=== PATIENT | male | born 1955 | race Caucasian/White ===

== ENCOUNTER 2022-12-06 12:53 | Outpatient (OUT) | payer OTHER, MEDICARE, SELFPAY ==
--- NOTE | 2022-12-06 13:00 | CA_ITS ---
Patient: MACKENZIE SKY Exam Date: 12/06/2022 : 1955 Gender:M Ordering : DR TEJAS REEDER M.D. Admission #: [id number] Family : DR ANSARIEL Milena PRO D.O. Order #: [id number] CLICK HERE TO VIEW EXAM ECHOCARDIOGRAM REPORT PROCEDURE: CA ECHO DOPPLER COMPLETE INDICATIONS: Chronic diastolic heart failure, hypertension, diabetes, PTCA COMPARISON: None. DESCRIPTION: COMPLETE ECHOCARDIOGRAM Real-time transthoracic echocardiography with 2D, M-mode, spectral and color flow Doppler performed. QUALITY: Technically difficult due to patients condition. LEFT VENTRICLE: Normal chamber size. Proximal septal hypertrophy (sigmoid septum). Normal systolic function. LV EF: Normal left ventricular ejection fraction, (>55%). DIASTOLIC: Normal diastolic function. ATRIAL SEPTUM: LEFT ATRIUM: Normal chamber size. RIGHT ATRIUM: Normal chamber size. RIGHT VENTRICLE: Normal chamber size. Normal systolic function. TRICUSPID VALVE: Normal mobility and thickness. No stenosis with no regurgitation. MITRAL VALVE: Mildly thickened with normal mobility. No evidence of mitral valve stenosis. There is no mitral annular calcification. No mitral regurgitation. AORTIC VALVE: Normal trileaflet appearance. Thickened aortic valve. Normal leaflet mobility. No evidence of aortic valve stenosis. No aortic regurgitation. AORTIC ROOT: Mildly dilated aortic root measuring 3.9 cm. PULMONIC VALVE: Normal thickness and mobility. No stenosis. No regurgitation. PERICARDIUM: No evidence of pericardial effusion. IVC: Collapses with inspirations. PLEURA: CONCLUSION: 1. Normal ventricular systolic function. LVEF is 55 to 60%. 2. Normal diastolic function. 3. No significant valvular dysfunction. 4. Mildly dilated aortic root measuring 3.9 cm. Adult Echocardiography Procedure Report Left Ventricle LVEDD (3.7 - 5.6 cm): 5.16 cm LVESD (2.2 - 4.0 cm): 3.49 cm LVIVS thickness (0.6 - 1.2 cm): 1.08 cm LVPW thickness (0.5 - 1.0 cm): 1.18 cm e': 0.13 m/s E - e': 6.04 LVOT Max Gradient: 2.44 mm[Hg] LVOT Area (cm2): 0.78 m/s Peak Velocity (LVOT): 0.78 m/s LVOT Diameter 2.33 cm Left Atrium LA Volume Index (2D A2C): 28.70 ml/m2 Left Atrium Systolic Dimension: 4.61 cm Mitral Valve MV E to A Ratio: 1.25 Mitral Valve A-Wave Peak Velocity: 0.62 m/s Mitral Valve E-Wave Peak Velocity: 0.77 m/s Right Ventricle Aorta AO Root Diam: 3.89 cm Aortic Valve AoV Area (Peak Harsh): 3.93 cm2, 3.93 cm2 Peak Velocity(Antegrade Flow): 0.84 m/s Peak Gradient(Antegrade Flow): 2.85 mm[Hg] Tricuspid Valve Pulmonic Valve Peak Velocity: 0.86 m/s Peak Gradient: 2.95 mm[Hg], 3.02 mm[Hg] Right Atrium Right Atrium Systolic Pressure: 46.90 ml, 46.90 ml Dictated by: Tejas Reeder M.D. on 12/11/2022 at 11:08 Approved by: Tejas Reeder M.D. on 12/11/2022 at 11:12
== END 2022-12-06 12:54 ==
LOC: CARD 13:01
PROVIDERS: PCP Family Medicine; Visit Provider Internal Medicine Interventional Cardiology
DX: I50.32 Chronic diastolic (congestive) heart failure (principal)
CPT/HCPCS: 93306

== ENCOUNTER 2023-04-11 09:25 | Outpatient (OUT) | payer MEDICARE, SELFPAY ==
[2023-04-11 10:24] LABS: Creatinine Urine Random 206.86 mg/dL (20.00-300.00); Microalbum Creatinine Ratio Ur 18.3 mg/g (0.0-29.9); Microalbumin Urine Random 3.8 mg/dL (<=30.0)
[2023-04-11 10:46] LABS: Basophils Percent Auto 0.5 % (0.2-2.0); Eosinophils Absolute Auto 0.1 10^3/uL (0.0-0.7); Eosinophils Percent Auto 1.7 % (0.9-7.0); Hematocrit 39.5 % (42.0-54.0); Hemoglobin 13.1 g/dL (14.0-18.0); Immature Granulocytes Abs Auto 0.02 10^3/uL (0.00-0.03); Immature Granulocytes Pct Auto 0.2 % (0.0-0.5); Lymphocytes Absolute Auto 1.9 10^3/uL (1.2-3.8); Lymphocytes Percent Auto 23.1 % (20.5-60.0); Mean Corpuscular HGB Conc 33.2 g/dL (29.9-35.2); Mean Corpuscular Hemoglobin 30.9 pg (25.9-34.0); Mean Corpuscular Volume 93.2 fL (80.0-94.0); Mean Platelet Volume 9.4 fL (9.5-13.5); Monocytes Absolute Auto 0.6 10^3/uL (0.3-0.8); Monocytes Percent Auto 7.3 % (1.7-12.0); Neutrophils Absolute Auto 5.5 10^3/uL (1.4-6.5); Neutrophils Percent Auto 67.2 % (43.0-75.0); Platelet Count 146 10^3/uL (150-450); Red Blood Count 4.24 10^6/uL (4.70-6.10); Red Cell Distribution Width 12.2 % (11.0-15.0); White Blood Count 8.1 10^3/uL (4.0-11.0)
[2023-04-11 10:52] LABS: Alanine Aminotransferase 31 U/L (16-63); Albumin Globulin Ratio 0.9; Albumin Level 3.3 g/dL (3.4-5.0); Alkaline Phosphatase 64 U/L (46-116); Anion Gap 11.1; Aspartate Amino Transferase 18 U/L (15-37); BUN Creatinine Ratio 17.9; Bilirubin Total 0.4 mg/dL (0.2-1.0); Calcium 8.7 mg/dL (8.5-10.1); Carbon Dioxide 33.4 mmol/L (21.0-32.0); Chloride 103 mmol/L (98-107); Chol HDL Ratio 3.4; Cholesterol 118 mg/dL (<=200); Estimated GFR (African America 52 (>=60); Estimated GFR (Non-African Ame 43 (>=60); Globulin 3.7 g/dL; Glucose 161 mg/dL (74-106); HDL Cholesterol 35 mg/dL (40-60); Potassium 4.5 mmol/L (3.5-5.1); Sodium 143 mmol/L (136-145); Triglycerides 164 mg/dL (<=150); Uric Acid 6.9 mg/dL (3.5-7.2); VLDL CHOLESTEROL 32.8 mg/dL
[2023-04-11 11:10] LABS: Prostate Specific Antigen Scrn 0.55 ng/mL (<=4.00)
== END 2023-04-11 09:26 | disposition home or self-care (01) ==
LOC: LAB 09:28
PROVIDERS: PCP Family Medicine; Visit Provider Family Medicine
DX: E11.22 Type 2 diabetes mellitus with diabetic chronic kidney disease (principal); I10 Essential (primary) hypertension; Z12.5 Encounter for screening for malignant neoplasm of prostate; M1A.9XX0 Chronic gout, unspecified, without tophus (tophi)
CPT/HCPCS: 36415; 80053; 80061; 82043; 82570; 84550; 85025; G0103

== ENCOUNTER 2023-09-26 18:38 | Observation (INO) | payer MEDICARE, SELFPAY ==
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
[2023-09-26 18:44] VITALS: BP 150/83; PULSE 73; RESP 18; TEMP 36.4; O2SAT 98; BMI 44.0
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
[2023-09-26] MEDS: ONDANSETRON PF 4 MG/2 ML VIAL IV (19:06)
[2023-09-26] MEDS: HYDROMORPHONE HCL 1 MG/ML CARTRIDGE IVP (19:06)
[2023-09-26 19:31] LABS: Basophils Percent Auto 0.3 % (0.2-2.0); Eosinophils Absolute Auto 0.2 10^3/uL (0.0-0.7); Eosinophils Percent Auto 1.7 % (0.9-7.0); Hematocrit 38.6 % (42.0-54.0); Hemoglobin 12.6 g/dL (14.0-18.0); Immature Granulocytes Abs Auto 0.01 10^3/uL (0.00-0.03); Immature Granulocytes Pct Auto 0.1 % (0.0-0.5); Lymphocytes Absolute Auto 1.7 10^3/uL (1.2-3.8); Lymphocytes Percent Auto 17.4 % (20.5-60.0); Mean Corpuscular HGB Conc 32.6 g/dL (29.9-35.2); Mean Corpuscular Hemoglobin 30.7 pg (25.9-34.0); Mean Corpuscular Volume 93.9 fL (80.0-94.0); Mean Platelet Volume 9.1 fL (9.5-13.5); Monocytes Absolute Auto 0.6 10^3/uL (0.3-0.8); Monocytes Percent Auto 5.9 % (1.7-12.0); Neutrophils Absolute Auto 7.3 10^3/uL (1.4-6.5); Neutrophils Percent Auto 74.6 % (43.0-75.0); Platelet Count 161 10^3/uL (150-450); Red Blood Count 4.11 10^6/uL (4.70-6.10); Red Cell Distribution Width 12.5 % (11.0-15.0); White Blood Count 9.7 10^3/uL (4.0-11.0)
[2023-09-26] MEDS: FENTANYL CITRATE/PF 100 MCG/2 ML VIAL 50 MCG IV (19:41)
[2023-09-26 19:45] LABS: INR 0.93; Prothrombin Time 9.9 sec (9.0-11.6)
[2023-09-26 19:46] LABS: Alanine Aminotransferase 26 U/L (16-63); Albumin Globulin Ratio 0.9; Albumin Level 3.2 g/dL (3.4-5.0); Alkaline Phosphatase 73 U/L (46-116); Anion Gap 8.4; Aspartate Amino Transferase 23 U/L (15-37); Bilirubin Total 0.4 mg/dL (0.2-1.0); Calcium 8.3 mg/dL (8.5-10.1); Carbon Dioxide 32.7 mmol/L (21.0-32.0); Chloride 103 mmol/L (98-107); Estimated GFR (African America 53 (>=60); Estimated GFR (Non-African Ame 43 (>=60); Globulin 3.4 g/dL; Glucose 223 mg/dL (74-106); Potassium 4.1 mmol/L (3.5-5.1); Sodium 140 mmol/L (136-145); Total Protein 6.6 g/dL (6.4-8.2)
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
[2023-09-26] MEDS: ORPHENADRINE 60 MG/ 2 ML VIAL IV (21:20)
[2023-09-26 21:22] LABS: Glucometer 192 mg/dL (74-106)
[2023-09-27] VITALS (11 sets, daily range): BP systolic 109–150; BP diastolic 53–76; PULSE 80–84; RESP 12–20; TEMP 36.6–37.1; O2SAT 92–98; BMI 44.8
[2023-09-27] MEDS: HYDROMORPHONE HCL 1 MG/ML CARTRIDGE IV (00:05)
--- NOTE | 2023-09-27 00:20 | PC.NURSE ---
patient arrived to room 274 at this time. admission assessment completed. patient room orientation completed and call light within reach.
[2023-09-27 01:12] LABS: Glucometer 144 mg/dL (74-106)
--- NOTE | 2023-09-27 01:50 | PC.NURSE ---
patient given [place] as ordered for pain. call light within reach.
[2023-09-27] MEDS: HYDROCODONE/ACET 5-325 MG TABLET 2 TAB PO ×2 (01:55→07:02)
--- NOTE | 2023-09-27 02:00 | PC.NURSE ---
Patient requests using home CPAP machine. Set up at bedside and patient applied to self. RT called and made aware of placement.
--- NOTE | 2023-09-27 02:45 | RESP.RT ---
Pt wearing Home CPAP with 3L 02 bleed in, which patients wears at home.
--- NOTE | 2023-09-27 04:00 | PC.NURSE ---
patient continues to have complaints of pain in right leg. Sheeba MEDEROS notified.
[2023-09-27] MEDS: HYDROMORPHONE HCL 1 MG/ML CARTRIDGE IVP (04:23)
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
[2023-09-27 07:58] LABS: Basophils Percent Auto 0.3 % (0.2-2.0); Eosinophils Absolute Auto 0.1 10^3/uL (0.0-0.7); Eosinophils Percent Auto 0.9 % (0.9-7.0); Hematocrit 35.7 % (42.0-54.0); Hemoglobin 11.5 g/dL (14.0-18.0); Immature Granulocytes Abs Auto 0.03 10^3/uL (0.00-0.03); Immature Granulocytes Pct Auto 0.3 % (0.0-0.5); Mean Corpuscular HGB Conc 32.2 g/dL (29.9-35.2); Mean Corpuscular Hemoglobin 30.6 pg (25.9-34.0); Mean Corpuscular Volume 94.9 fL (80.0-94.0); Mean Platelet Volume 9.1 fL (9.5-13.5); Monocytes Absolute Auto 0.9 10^3/uL (0.3-0.8); Monocytes Percent Auto 8.4 % (1.7-12.0); Neutrophils Absolute Auto 8.1 10^3/uL (1.4-6.5); Neutrophils Percent Auto 72.1 % (43.0-75.0); Platelet Count 136 10^3/uL (150-450); Red Blood Count 3.76 10^6/uL (4.70-6.10); Red Cell Distribution Width 12.8 % (11.0-15.0); White Blood Count 11.2 10^3/uL (4.0-11.0)
[2023-09-27 08:11] LABS: Alanine Aminotransferase 32 U/L (16-63); Albumin Globulin Ratio 0.9; Alkaline Phosphatase 52 U/L (46-116); Anion Gap 11.1; Aspartate Amino Transferase 36 U/L (15-37); BUN Creatinine Ratio 17.3; Bilirubin Total 0.6 mg/dL (0.2-1.0); Calcium 8.2 mg/dL (8.5-10.1); Carbon Dioxide 32.3 mmol/L (21.0-32.0); Chloride 104 mmol/L (98-107); Estimated GFR (African America 52 (>=60); Estimated GFR (Non-African Ame 42 (>=60); Globulin 3.2 g/dL; Glucose 167 mg/dL (74-106); Potassium 4.4 mmol/L (3.5-5.1); Sodium 143 mmol/L (136-145); Total Protein 6.2 g/dL (6.4-8.2)
[2023-09-27] MEDS: AMLODIPINE BESYLATE 5 MG TABLET 10 MG PO (08:28)
[2023-09-27] MEDS: HYDRALAZINE HCL 50 MG TABLET 100 MG PO ×2 (08:28→19:27)
[2023-09-27] MEDS: GABAPENTIN 400 MG CAPSULE 1200 MG PO ×2 (08:28→19:27)
[2023-09-27] MEDS: ALLOPURINOL 100 MG TABLET PO (08:28)
[2023-09-27] MEDS: METOPROLOL TARTRATE 50 MG TABLET PO ×2 (08:28→19:27)
[2023-09-27] MEDS: INSULIN DETEMIR 300 UNIT/3 ML INSULN.PEN 65 UNIT SQ (08:30)
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
--- NOTE | 2023-09-27 10:33 | ECG_ITS ---
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
[2023-09-27] MEDS: MORPHINE SULFATE 2 MG/ML SYRINGE IV ×2 (10:47→12:42)
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
[2023-09-27] MEDS: HYDROCODONE/ACET 5-325 MG TABLET 1 TAB PO (14:09)
[2023-09-27] MEDS: LACTATED RINGER'S SOLUTION 1,000 ML 50 ML IV (15:06)
[2023-09-27] MEDS: HYDROMORPHONE HCL 0.5 MG/0.5 ML SYRINGE IV ×3 (15:47→23:39)
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
[2023-09-27] MEDS: ASPIRIN 325 MG TABLET PO (16:52)
[2023-09-27] MEDS: OXYCODONE HCL/ACETAMINOPHEN 5MG/325MG 2 TAB PO ×2 (16:53→20:55)
[2023-09-27] MEDS: ATORVASTATIN CALCIUM 40 MG TABLET 80 MG PO (19:27)
[2023-09-27] MEDS: CETIRIZINE HCL 10 MG TABLET PO (19:27)
[2023-09-27] MEDS: INSULIN DETEMIR 300 UNIT/3 ML INSULN.PEN 45 UNIT SQ (21:06)
[2023-09-28] VITALS (8 sets, daily range): BP systolic 126–155; BP diastolic 63–74; PULSE 62–78; RESP 14–18; TEMP 36.7–37.2; O2SAT 90–94
[2023-09-28] MEDS: OXYCODONE HCL/ACETAMINOPHEN 5MG/325MG 2 TAB PO ×4 (02:05→21:16)
[2023-09-28] MEDS: CYCLOBENZAPRINE HCL 10 MG TABLET PO ×2 (03:23→20:34)
[2023-09-28] MEDS: HYDROMORPHONE HCL 0.5 MG/0.5 ML SYRINGE IV (04:46)
[2023-09-28 05:23] LABS: Basophils Percent Auto 0.2 % (0.2-2.0); Eosinophils Absolute Auto 0.3 10^3/uL (0.0-0.7); Eosinophils Percent Auto 2.3 % (0.9-7.0); Hematocrit 34.3 % (42.0-54.0); Immature Granulocytes Abs Auto 0.04 10^3/uL (0.00-0.03); Immature Granulocytes Pct Auto 0.3 % (0.0-0.5); Lymphocytes Absolute Auto 2.5 10^3/uL (1.2-3.8); Lymphocytes Percent Auto 20.6 % (20.5-60.0); Mean Corpuscular HGB Conc 32.1 g/dL (29.9-35.2); Mean Corpuscular Hemoglobin 30.5 pg (25.9-34.0); Mean Platelet Volume 9.7 fL (9.5-13.5); Monocytes Absolute Auto 1.1 10^3/uL (0.3-0.8); Monocytes Percent Auto 9.1 % (1.7-12.0); Neutrophils Absolute Auto 8.2 10^3/uL (1.4-6.5); Neutrophils Percent Auto 67.5 % (43.0-75.0); Platelet Count 149 10^3/uL (150-450); Red Blood Count 3.61 10^6/uL (4.70-6.10); Red Cell Distribution Width 12.5 % (11.0-15.0); White Blood Count 12.2 10^3/uL (4.0-11.0)
[2023-09-28 05:49] LABS: Alanine Aminotransferase 25 U/L (16-63); Albumin Globulin Ratio 0.8; Albumin Level 2.7 g/dL (3.4-5.0); Alkaline Phosphatase 54 U/L (46-116); Aspartate Amino Transferase 26 U/L (15-37); BUN Creatinine Ratio 19.5; Bilirubin Total 0.7 mg/dL (0.2-1.0); Calcium 8.1 mg/dL (8.5-10.1); Carbon Dioxide 29.7 mmol/L (21.0-32.0); Chloride 102 mmol/L (98-107); Estimated GFR (African America 47 (>=60); Estimated GFR (Non-African Ame 39 (>=60); Globulin 3.5 g/dL; Glucose 131 mg/dL (74-106); Potassium 3.7 mmol/L (3.5-5.1); Sodium 140 mmol/L (136-145); Total Protein 6.2 g/dL (6.4-8.2)
--- NOTE | 2023-09-28 07:59 | P.PN_ITS ---
Exam Narrative Exam Narrative: General: Patient is alert, and oriented to person, place and time with normal affect, proper hygiene Skin: no visible rashes, or ulcers Head: atraumatic, acephalic Eyes: PERRLA, no nystagmus present, conjunctiva clear, no scleral icterus Ears: normal gross auditory acuity Heart: Normal rate and rhythm, no murmurs/rubs/gallops Lungs: no audible wheezes, crackles and normal breath sounds all lung horton Abdomen: Normal audible bowel sounds, no distension, No palpable masses, no organomegaly, no rebound/guarding/ or rigidity Musculoskeletal: pain with palpation of the right ankle both laterally and medially, pain with palpation of the right tibia, right lateral hip and right groin area Vascular: Normal posterior tibial, and dorsalis pedis pulses Neuro: CN II-X grossly intact Constitutional Vital Signs, click to edit/add: Last Vital Signs Temp 98.9 F 09/28/23 02:07 Pulse 78 09/28/23 02:07 Resp 14 09/28/23 04:03 BP 145/64 H 09/28/23 02:07 Pulse Ox 93 L 09/28/23 05:20 O2 Del Method Home BIPAP / CPAP 09/28/23 05:20 O2 Flow Rate 3 09/28/23 05:20 Progress Note: Objective Labs Labs: Short CBC 09/27/23 09/28/23 Range/Units 07:52 04:03 WBC 11.2 H 12.2 H (4.0-11.0) 10^3/uL Hgb 11.5 L 11.0 L (14.0-18.0) g/dL Hct 35.7 L 34.3 L (42.0-54.0) % Plt Count 136 L 149 L (150-450) 10^3/uL BMP 09/27/23 09/28/23 07:52 04:03 Sodium 143 140 Potassium 4.4 3.7 Chloride 104 102 Carbon Dioxide 32.3 H 29.7 BUN 28.0 H 34.0 H Creatinine 1.62 H 1.74 H Glucose 167 H 131 H Calcium 8.2 L 8.1 L Liver Function 09/27/23 09/28/23 Range/Units 07:52 04:03 Total Bilirubin 0.6 0.7 (0.2-1.0) mg/dL AST 36 26 (15-37) U/L ALT 32 25 (16-63) U/L Alkaline Phosphatase 52 54 (46-116) U/L Albumin 3.0 L 2.7 L (3.4-5.0) g/dL Progress Note: A&P Assessment and Plan (1) Fracture of tibial plateau: Assessment and Plan: continue percocet, continue home Neurontin and IV Dilaudid. MRI of the right hip and pelvis were negative for acute fracture. Orthopedic consultation: For his tibial plateau fracture would recommend a hinged knee brace. If hinged knee brace is not available would place him in the long knee immobilizer. For his distal tibial metaphyseal fracture would put him in a boot. Patient should be nonweightbearing to the right lower extremity. Symptomatic relief with narcotics and icing. Elevation of the leg to control swelling Qualifiers: Encounter type: initial encounter Fracture type: closed Laterality: right Qualified Code(s): S82.141A - Displaced bicondylar fracture of right tibia, initial encounter for closed fracture (2) Neuropathy: Assessment and Plan: continue gabapentin (3) Sleep apnea: Assessment and Plan: continue BiPAP Qualifiers: Sleep apnea type: obstructive Qualified Code(s): G47.33 - Obstructive sleep apnea (adult) (pediatric) (4) Hypertension: Assessment and Plan: continue home medications of metoprolol, restart losartan and Lasix Qualifiers: Hypertension type: secondary to endocrine disorders Qualified Code(s): I15.2 - Hypertension secondary to endocrine disorders (5) Diabetes: Assessment and Plan: continue insulin, sliding scale in addition if needed Qualifiers: Diabetes mellitus complication detail: with neuropathic arthropathy Diabetes mellitus complication status: with diabetic arthropathy Diabetes mellitus keno terminal operator insulin use: with keno terminal operator use Diabetes mellitus type: type 2 Qualified Code(s): E11.610 - Type 2 diabetes mellitus with diabetic neuropathic arthropathy; Z79.4 - correction (current) use of insulin (6) Acute renal failure: Assessment and Plan: restart lasix and losartan, gentle ivf hydration, avoid nephrotoxins such as NSAIDs for now, i suspect chronic kidney disease Qualifiers: Acute renal failure type: unspecified Qualified Code(s): N17.9 - Acute kidney failure, unspecified (7) CAD (coronary artery disease): Assessment and Plan: history of stents 2010 and 2015, follows regularly with cards, continue atorvastatin. Plan patient is a full code started aspirin 325mg yesterday since not surgical once bracing and boot are provided, and patient has crutches to maintain NWBR, will discharge home with close ortho follow up
--- NOTE | 2023-09-28 08:28 | P.ORPN_ITS ---
Progress Note: A&P Assessment and Plan (1) Fracture of tibial plateau: Assessment and Plan: MRI report and images reviewed. Gluteal muscle injury. No fracture. No indication for surgical intervention at this time. Splint for distal tibia fracture and knee immobilizer for tibial plateau fracture. Physical therapy for NWB right lower extremity. Follow up in my office on 10/05. Qualifiers: Encounter type: initial encounter Fracture type: closed Laterality: right Qualified Code(s): S82.141A - Displaced bicondylar fracture of right tibia, initial encounter for closed fracture (2) Neuropathy: (3) Sleep apnea: Qualifiers: Sleep apnea type: obstructive Qualified Code(s): G47.33 - Obstructive sleep apnea (adult) (pediatric) (4) Hypertension: Qualifiers: Hypertension type: secondary to endocrine disorders Qualified Code(s): I15.2 - Hypertension secondary to endocrine disorders (5) Diabetes: Qualifiers: Diabetes mellitus type: type 2 Diabetes mellitus superintendent marine oil terminal insulin use: with prison use Diabetes mellitus complication status: with diabetic arthropathy Diabetes mellitus complication detail: with neuropathic arthropathy Qualified Code(s): E11.610 - Type 2 diabetes mellitus with diabetic neuropathic arthropathy; Z79.4 - halfway (current) use of insulin (6) Acute renal failure: Qualifiers: Acute renal failure type: unspecified Qualified Code(s): N17.9 - Acute kidney failure, unspecified (7) CAD (coronary artery disease): Exam Constitutional Vital Signs, click to edit/add: Last Vital Signs Temp 98.9 F 09/28/23 02:07 Pulse 78 09/28/23 02:07 Resp 14 09/28/23 04:03 BP 145/64 H 09/28/23 02:07 Pulse Ox 93 L 09/28/23 05:20 O2 Del Method Home BIPAP / CPAP 09/28/23 05:20 O2 Flow Rate 3 09/28/23 05:20
[2023-09-28 08:36] LABS: Estimated Average Glucose 157 mg/dL; Glycohemoglobin A1C 7.1 % (4.5-6.2)
[2023-09-28] MEDS: ALLOPURINOL 100 MG TABLET PO (09:30)
[2023-09-28] MEDS: AMLODIPINE BESYLATE 5 MG TABLET 10 MG PO (09:30)
[2023-09-28] MEDS: FUROSEMIDE 40 MG TABLET PO (09:31)
[2023-09-28] MEDS: ASPIRIN 325 MG TABLET PO (09:31)
[2023-09-28] MEDS: GABAPENTIN 400 MG CAPSULE 1200 MG PO ×2 (09:31→21:16)
[2023-09-28] MEDS: INSULIN DETEMIR 300 UNIT/3 ML INSULN.PEN 65 UNIT SQ (09:32)
[2023-09-28] MEDS: HYDROCHLOROTHIAZIDE 25 MG TABLET 12.5 MG PO (09:32)
[2023-09-28] MEDS: HYDRALAZINE HCL 50 MG TABLET 100 MG PO ×2 (09:32→21:16)
[2023-09-28] MEDS: METOPROLOL TARTRATE 50 MG TABLET PO ×2 (09:32→21:16)
[2023-09-28] MEDS: LOSARTAN POTASSIUM 50 MG TABLET PO (09:32)
[2023-09-28 20:48] LABS: Glucometer 264 mg/dL (74-106)
[2023-09-28] MEDS: ATORVASTATIN CALCIUM 40 MG TABLET 80 MG PO (21:16)
[2023-09-28] MEDS: CETIRIZINE HCL 10 MG TABLET PO (21:16)
[2023-09-28] MEDS: INSULIN DETEMIR 300 UNIT/3 ML INSULN.PEN 45 UNIT SQ (21:17)
[2023-09-29] VITALS (10 sets, daily range): BP systolic 126–161; BP diastolic 56–68; PULSE 62–94; RESP 16–18; TEMP 36.7–37.3; O2SAT 90–93
[2023-09-29] MEDS: OXYCODONE HCL/ACETAMINOPHEN 5MG/325MG 1 TAB PO ×2 (01:20→15:49)
[2023-09-29] MEDS: ACETAMINOPHEN 325 MG TABLET 650 MG PO (03:26)
[2023-09-29 05:37] LABS: Basophils Percent Auto 0.2 % (0.2-2.0); Eosinophils Absolute Auto 0.2 10^3/uL (0.0-0.7); Hematocrit 32.8 % (42.0-54.0); Hemoglobin 10.8 g/dL (14.0-18.0); Immature Granulocytes Abs Auto 0.04 10^3/uL (0.00-0.03); Immature Granulocytes Pct Auto 0.3 % (0.0-0.5); Lymphocytes Absolute Auto 2.1 10^3/uL (1.2-3.8); Lymphocytes Percent Auto 18.1 % (20.5-60.0); Mean Corpuscular HGB Conc 32.9 g/dL (29.9-35.2); Mean Corpuscular Hemoglobin 31.1 pg (25.9-34.0); Mean Corpuscular Volume 94.5 fL (80.0-94.0); Mean Platelet Volume 9.5 fL (9.5-13.5); Monocytes Percent Auto 8.6 % (1.7-12.0); Neutrophils Absolute Auto 8.1 10^3/uL (1.4-6.5); Neutrophils Percent Auto 70.8 % (43.0-75.0); Platelet Count 152 10^3/uL (150-450); Red Blood Count 3.47 10^6/uL (4.70-6.10); Red Cell Distribution Width 12.4 % (11.0-15.0); White Blood Count 11.5 10^3/uL (4.0-11.0)
[2023-09-29] MEDS: OXYCODONE HCL/ACETAMINOPHEN 5MG/325MG 2 TAB PO ×2 (05:47→09:50)
[2023-09-29 05:51] LABS: Alanine Aminotransferase 25 U/L (16-63); Albumin Globulin Ratio 0.7; Albumin Level 2.5 g/dL (3.4-5.0); Alkaline Phosphatase 55 U/L (46-116); Anion Gap 12.3; Aspartate Amino Transferase 24 U/L (15-37); BUN Creatinine Ratio 18.2; Bilirubin Total 0.5 mg/dL (0.2-1.0); Calcium 8.1 mg/dL (8.5-10.1); Carbon Dioxide 29.7 mmol/L (21.0-32.0); Chloride 103 mmol/L (98-107); Estimated GFR (African America 41 (>=60); Estimated GFR (Non-African Ame 34 (>=60); Globulin 3.7 g/dL; Glucose 131 mg/dL (74-106); Sodium 141 mmol/L (136-145); Total Protein 6.2 g/dL (6.4-8.2)
[2023-09-29 07:54] LABS: Glucometer 109 mg/dL (74-106)
--- NOTE | 2023-09-29 08:26 | P.DS_ITS ---
DS: Providers Provider Date of admission: 09/27/23 00:17 Primary care physician: DAVID PRO DO Consults: 09/27/23 07:43 Occupational Therapy Eval and Treat Routine Reason for consultation: NWBR Has provider been notified: No 09/28/23 07:00 Consult to Orthopedics Routine Consulting Provider: Julian Oneill Reason for consultation: right tibial plateau fx Has provider been notified: No 09/28/23 07:58 Physical Therapy Eval and Treat Routine Reason for consultation: NWB R lower ext; ortho wants right hinged knee brace and right tall boot Has provider been notified: No DS: Diagnosis Discharge Diagnosis (1) Fracture of tibial plateau: Qualifiers: Encounter type: initial encounter Fracture type: closed Laterality: right Qualified Code(s): S82.141A - Displaced bicondylar fracture of right tibia, initial encounter for closed fracture (2) Neuropathy: (3) Sleep apnea: Qualifiers: Sleep apnea type: obstructive Qualified Code(s): G47.33 - Obstructive sleep apnea (adult) (pediatric) (4) Hypertension: Qualifiers: Hypertension type: secondary to endocrine disorders Qualified Code(s): I15.2 - Hypertension secondary to endocrine disorders (5) Diabetes: Qualifiers: Diabetes mellitus type: type 2 Diabetes mellitus termite treater helper insulin use: with termite treater helper use Diabetes mellitus complication status: with diabetic arthropathy Diabetes mellitus complication detail: with neuropathic arthropathy Qualified Code(s): E11.610 - Type 2 diabetes mellitus with diabetic neuropathic arthropathy; Z79.4 - terminal system operator (current) use of insulin (6) Acute renal failure: Qualifiers: Acute renal failure type: unspecified Qualified Code(s): N17.9 - Acute kidney failure, unspecified (7) CAD (coronary artery disease): DS: Summary Time Spent with Patient Time attestation: Total time spent providing and/or coordinating discharge services: Exam Constitutional Vital Signs, click to edit/add: Last Vital Signs Temp 98.3 F 09/29/23 07:49 Pulse 73 09/29/23 08:00 Resp 18 09/29/23 07:49 BP 148/64 H 09/29/23 07:49 Pulse Ox 93 L 09/29/23 07:49 O2 Del Method Room Air 09/29/23 07:49 O2 Flow Rate 3 09/28/23 05:20 DS: Data Data Completed and Pending Labs on day of discharge: Labs from last 24 hours 09/29/23 09/29/23 09/28/23 07:35 04:50 20:47 WBC 11.5 H RBC 3.47 L Hgb 10.8 L Hct 32.8 L MCV 94.5 H MCH 31.1 MCHC 32.9 RDW 12.4 Plt Count 152 MPV 9.5 Neut % (Auto) 70.8 Lymph % (Auto) 18.1 L [place] % (Auto) 8.6 Eos % (Auto) 2.0 Baso % (Auto) 0.2 Neut # (Auto) 8.1 H Lymph # (Auto) 2.1 [place] # (Auto) 1.0 H Eos # (Auto) 0.2 Baso # (Auto) 0.0 Abs Immat Gran (auto) 0.04 H Imm/Tot Granulo (auto) 0.3 Sodium 141 Potassium 4.0 Chloride 103 Carbon Dioxide 29.7 Anion Gap 12.3 BUN 36.0 H Creatinine 1.98 H Est GFR ( Amer) 41 L Est GFR (Non-Af Amer) 34 L BUN/Creatinine Ratio 18.2 Glucose 131 H Estimat Average Glucose Hemoglobin A1c Calcium 8.1 L Total Bilirubin 0.5 AST 24 ALT 25 Alkaline Phosphatase 55 Total Protein 6.2 L Albumin 2.5 L Globulin 3.7 Albumin/Globulin Ratio 0.7 POC Glucose 109 H 264 H 09/28/23 04:03 WBC RBC Hgb Hct MCV MCH MCHC RDW Plt Count MPV Neut % (Auto) Lymph % (Auto) [place] % (Auto) Eos % (Auto) Baso % (Auto) Neut # (Auto) Lymph # (Auto) [place] # (Auto) Eos # (Auto) Baso # (Auto) Abs Immat Gran (auto) Imm/Tot Granulo (auto) Sodium Potassium Chloride Carbon Dioxide Anion Gap BUN Creatinine Est GFR ( Amer) Est GFR (Non-Af Amer) BUN/Creatinine Ratio Glucose Estimat Average Glucose 157 Hemoglobin A1c 7.1 H Calcium Total Bilirubin AST ALT Alkaline Phosphatase Total Protein Albumin Globulin Albumin/Globulin Ratio POC Glucose Discharge Plan Discharge Condition: Good Discharge Medications: No Action aspirin [Adult Low Dose Aspirin] 81 mg tablet,delayed release (DR/EC) 81 mg PO DAILY gabapentin [Neurontin] 600 mg tablet 1,200 mg PO BID hydralazine 100 mg tablet 100 mg PO BID furosemide [Lasix] 40 mg tablet 40 mg PO DAILY insulin glargine [Lantus Solostar U-100 Insulin] 100 unit/mL (3 mL) insulin pen 65 unit subcut .am amlodipine 10 mg tablet 10 mg PO DAILY atorvastatin 80 mg tablet 80 mg PO QPM cetirizine [Zyrtec] 10 mg tablet 10 mg PO .hs losartan-hydrochlorothiazide 50-12.5 mg tablet 1 tab PO DAILY allopurinol 100 mg tablet 100 mg PO DAILY metoprolol tartrate [Lopressor] 50 mg tablet 50 mg PO BID insulin glargine [Lantus Solostar U-100 Insulin] 100 unit/mL (3 mL) insulin pen 45 unit subcut .hs Print Language: [place]
[2023-09-29] MEDS: ALLOPURINOL 100 MG TABLET PO (09:48)
[2023-09-29] MEDS: AMLODIPINE BESYLATE 5 MG TABLET 10 MG PO (09:48)
[2023-09-29] MEDS: HYDRALAZINE HCL 50 MG TABLET 100 MG PO ×2 (09:49→21:42)
[2023-09-29] MEDS: ASPIRIN 325 MG TABLET PO (09:49)
[2023-09-29] MEDS: FUROSEMIDE 40 MG TABLET PO (09:49)
[2023-09-29] MEDS: HYDROCHLOROTHIAZIDE 25 MG TABLET 12.5 MG PO (09:49)
[2023-09-29] MEDS: GABAPENTIN 400 MG CAPSULE 1200 MG PO ×2 (09:49→21:42)
[2023-09-29] MEDS: METOPROLOL TARTRATE 50 MG TABLET PO ×2 (09:50→21:42)
[2023-09-29] MEDS: LOSARTAN POTASSIUM 50 MG TABLET PO (09:50)
[2023-09-29] MEDS: INSULIN DETEMIR 300 UNIT/3 ML INSULN.PEN 65 UNIT SQ (09:51)
--- NOTE | 2023-09-29 10:05 | PT.DAILY ---
Physical Therapy Daily Note PT Daily Note/Assess Start: 09/29/23 09:58 Freq: Status: Active Protocol: Document 09/29/23 09:58 [email or web address] (Rec: 09/29/23 10:04 [place] [id number]) Physical Therapy Daily Note/Assessment Time In/Time Out Time In 09:28 Time Out 09:40 Pain Out Pain N/A Subjective Subjective Pt supine upon arrival. reports just working with OT but is agreeable to attempt PT at this time. Therapeutic Exercise Time Therapeutic Exercise Minutes (minutes) 3 Therapeutic Exercise Units 0 Therapeutic Exercise Treatment Therapeutic Exercise Treatment Supine AP, GS on R. AP, QS, GS , and heel slides L 10x ea prior to transfer. Therapeutic Activity Time Therapeutic Activity Minutes (minutes) 8 Therapeutic Activity Units 1 Therapeutic Activity Treatment Bed Mobility Ability Maximum Assist Chair Transfer Ability Moderate Assist Therapeutic Activity Comments Supine > sit EOB but requires heavy assistance to advance R LE and upper body to sit EOB. Able to sit EOB unsupported without LOB. Pt sit>Stand from elevated bed ModA. Pt unable to maintain total NWB but more TTWB with heavy UE support needed on RW. Pt static stand 20 sec before needing rest. Pt able to scoot himself up the bed laterally to L with 5 scoots to get where he needs to be. Sit>supine ModA for R LE. Pillow placed under R LE. Call light in reach and needs met. Total Physical Therapy Time Total Therapy Minutes 11 Total Physical Therapy Units 1 Summary Daily Note Summary Improved transfer ability today but cont to have difficulty maintaining NWB R LE with standing.
--- NOTE | 2023-09-29 10:36 | SWNOTE1 ---
MARI met with pt to discuss dc needs. Pt will need rehab and is agreeable to short term rehab stay. SW provided 5 star rating list from medicare.gov. Pt would like [facility] in [place] because he has been there before. MARI advised that SW is not sure they take his insurance, but will check. MARI spoke to Alona in admissions at [facility] and they do take insurance. They have limited beds but will review. Referral sent to [facility]. Referral included face sheet, ED note, H&P, provider notes, case management report, nursing notes, diagnostic imaging, med list, and PT/OT notes.
[2023-09-29 11:25] LABS: Glucometer 121 mg/dL (74-106)
--- NOTE | 2023-09-29 11:38 | CM.NOTE ---
Rounds made with Dr. Hamlin, discussed with pt about skilled therapy at discharge. Pt is in agreement and [facility]. Pt c/o increased pain today.
--- NOTE | 2023-09-29 11:47 | CM.NOTE ---
Medicare Outpatient Observation Notice discussed with pt, pt verbalizes understanding and signs paper. Original given to pt and copy placed on pt's chart.
--- NOTE | 2023-09-29 12:59 | PM.PN ---
Progress Note: Subjective Subjective Interval history: patient not able to get up on his to crutches. Pain is controlled. just reports tired. No other issues or complaints today Exam Narrative Exam Narrative: General: Patient is alert, and oriented to person, place and time with normal affect, proper hygiene Skin: no visible rashes, or ulcers Head: atraumatic, acephalic Eyes: PERRLA, no nystagmus present, conjunctiva clear, no scleral icterus Ears: normal gross auditory acuity Heart: Normal rate and rhythm, no murmurs/rubs/gallops Lungs: no audible wheezes, crackles and normal breath sounds all lung horton Abdomen: Normal audible bowel sounds, no distension, umbilical hernia present since admission, reducible and nontender, no organomegaly, no rebound/guarding/ or rigidity Musculoskeletal: patient in brace and splint Vascular: Normal posterior tibial, and dorsalis pedis pulses Neuro: CN II-X grossly intact Constitutional Vital Signs, click to edit/add: Last Vital Signs Temp 98.4 F 09/29/23 12:28 Pulse 62 09/29/23 12:28 Resp 18 09/29/23 12:28 BP 135/66 09/29/23 12:28 Pulse Ox 92 L 09/29/23 12:28 O2 Del Method Room Air 09/29/23 12:28 O2 Flow Rate 3 09/28/23 05:20 Progress Note: Objective Labs Labs: Short CBC 09/29/23 Range/Units 04:50 WBC 11.5 H (4.0-11.0) 10^3/uL Hgb 10.8 L (14.0-18.0) g/dL Hct 32.8 L (42.0-54.0) % Plt Count 152 (150-450) 10^3/uL BMP 09/29/23 04:50 Sodium 141 Potassium 4.0 Chloride 103 Carbon Dioxide 29.7 BUN 36.0 H Creatinine 1.98 H Glucose 131 H Calcium 8.1 L Liver Function 09/29/23 Range/Units 04:50 Total Bilirubin 0.5 (0.2-1.0) mg/dL AST 24 (15-37) U/L ALT 25 (16-63) U/L Alkaline Phosphatase 55 (46-116) U/L Albumin 2.5 L (3.4-5.0) g/dL Progress Note: A&P Assessment and Plan (1) Fracture of tibial plateau: Assessment and Plan: continue percocet, continue home Neurontin, hinged knee brace Qualifiers: Encounter type: initial encounter Fracture type: closed Laterality: right Qualified Code(s): S82.141A - Displaced bicondylar fracture of right tibia, initial encounter for closed fracture (2) Neuropathy: Assessment and Plan: continue gabapentin (3) Sleep apnea: Assessment and Plan: continue BiPAP Qualifiers: Sleep apnea type: obstructive Qualified Code(s): G47.33 - Obstructive sleep apnea (adult) (pediatric) (4) Hypertension: Assessment and Plan: continue home medications of metoprolol, losartan and Lasix Qualifiers: Hypertension type: secondary to endocrine disorders Qualified Code(s): I15.2 - Hypertension secondary to endocrine disorders (5) Diabetes: Assessment and Plan: continue insulin, sliding scale in addition if needed Qualifiers: Diabetes mellitus complication detail: with neuropathic arthropathy Diabetes mellitus complication status: with diabetic arthropathy Diabetes mellitus manager terminal insulin use: with usp use Diabetes mellitus type: type 2 Qualified Code(s): E11.610 - Type 2 diabetes mellitus with diabetic neuropathic arthropathy; Z79.4 - superintendent container terminal (current) use of insulin (6) Acute renal failure: Assessment and Plan: restart lasix and losartan, avoid nephrotoxins such as NSAIDs for now Qualifiers: Acute renal failure type: unspecified Qualified Code(s): N17.9 - Acute kidney failure, unspecified (7) CAD (coronary artery disease): Assessment and Plan: history of stents 2010 and 2015, follows regularly with cards, continue atorvastatin Plan full code patient remains NWB on the Right; cannot lift self from bed to stand with arms, cannot use crutches or walker, Would benefit from rehab
[2023-09-29 16:24] LABS: Glucometer 130 mg/dL (74-106)
[2023-09-29 20:59] LABS: Glucometer 166 mg/dL (74-106)
[2023-09-29] MEDS: CETIRIZINE HCL 10 MG TABLET PO (21:42)
[2023-09-29] MEDS: ONDANSETRON PF 4 MG/2 ML VIAL IV (21:42)
[2023-09-29] MEDS: ATORVASTATIN CALCIUM 40 MG TABLET 80 MG PO (21:42)
[2023-09-29] MEDS: INSULIN DETEMIR 300 UNIT/3 ML INSULN.PEN 45 UNIT SQ (21:44)
[2023-09-30] VITALS (12 sets, daily range): BP systolic 150–164; BP diastolic 64–81; PULSE 77–113; RESP 16–20; TEMP 36.6–37.2; O2SAT 76–96
[2023-09-30] MEDS: PROCHLORPERAZINE 10 MG/2 ML VIAL IV ×2 (00:32→10:13)
[2023-09-30] MEDS: OXYCODONE HCL/ACETAMINOPHEN 5MG/325MG 1 TAB PO ×2 (01:20→21:41)
[2023-09-30] MEDS: ONDANSETRON PF 4 MG/2 ML VIAL IV (04:00)
--- NOTE | 2023-09-30 04:06 | PC.NURSE ---
pt nauseous and dry heaving. zofran given per order. pt has emesis bag at bedside and call light in reach. pt does not want to take pain meds at this time for fear of throwing up
[2023-09-30 05:23] LABS: Basophils Percent Auto 0.2 % (0.2-2.0); Hematocrit 35.9 % (42.0-54.0); Hemoglobin 11.7 g/dL (14.0-18.0); Immature Granulocytes Abs Auto 0.05 10^3/uL (0.00-0.03); Immature Granulocytes Pct Auto 0.3 % (0.0-0.5); Lymphocytes Absolute Auto 0.8 10^3/uL (1.2-3.8); Lymphocytes Percent Auto 5.8 % (20.5-60.0); Mean Corpuscular HGB Conc 32.6 g/dL (29.9-35.2); Mean Corpuscular Hemoglobin 30.5 pg (25.9-34.0); Mean Corpuscular Volume 93.7 fL (80.0-94.0); Mean Platelet Volume 9.6 fL (9.5-13.5); Monocytes Absolute Auto 0.7 10^3/uL (0.3-0.8); Monocytes Percent Auto 4.6 % (1.7-12.0); Neutrophils Absolute Auto 12.9 10^3/uL (1.4-6.5); Neutrophils Percent Auto 89.1 % (43.0-75.0); Platelet Count 198 10^3/uL (150-450); Red Blood Count 3.83 10^6/uL (4.70-6.10); Red Cell Distribution Width 12.4 % (11.0-15.0); White Blood Count 14.5 10^3/uL (4.0-11.0)
[2023-09-30 06:07] LABS: Alanine Aminotransferase 23 U/L (16-63); Albumin Globulin Ratio 0.7; Albumin Level 2.7 g/dL (3.4-5.0); Alkaline Phosphatase 56 U/L (46-116); Anion Gap 11.6; Aspartate Amino Transferase 22 U/L (15-37); BUN Creatinine Ratio 24.8; Bilirubin Total 0.7 mg/dL (0.2-1.0); Calcium 8.6 mg/dL (8.5-10.1); Carbon Dioxide 32.5 mmol/L (21.0-32.0); Chloride 100 mmol/L (98-107); Estimated GFR (African America 40 (>=60); Estimated GFR (Non-African Ame 33 (>=60); Globulin 4.1 g/dL; Glucose 180 mg/dL (74-106); Potassium 4.1 mmol/L (3.5-5.1); Sodium 140 mmol/L (136-145); Total Protein 6.8 g/dL (6.4-8.2)
--- NOTE | 2023-09-30 06:16 | XR_ITS ---
[address] [address] Patient Name: MACKENZIE SKY MRN: [id number] date: 1955 Sex: M Assigned Patient Location: MS Current Patient Location: MS Accession/Order Number: [id number] Exam Date: 09/30/2023 06:26 Report Date: 09/30/2023 07:00 At the request of: DWAIN FAROOQ Procedure: XR abdomen 1V EXAMINATION: XR abdomen 1V HISTORY: nausea and vomiting COMPARISON: No relevant comparison available. FINDINGS: BOWEL GAS PATTERN: Moderate gaseous distention of the stomach. Mild gaseous distention of small bowel loops with air seen down to the sigmoid colon. Normal amount of stool. CALCIFICATIONS: None significant. OTHER: Degenerative changes of the spine and hips XR/XR abdomen 1V IMPRESSION: Gaseous distention of the stomach Overall nonobstructive bowel gas pattern Electronically authenticated by: JULIANN MOTLEY Date: 09/30/2023 07:00
--- NOTE | 2023-09-30 06:58 | PC.NURSE ---
pt nauseous and vomiting throughout the night. Zofran did not seem to be effective. Compazine was given and gave patient little relief. Pt is still nauseousand dry heaving this morning. No BM is documented for this patient since admission. Dr. Hamlin made aware and abdominal XR ordered and obtained.
--- NOTE | 2023-09-30 08:32 | PM.PN ---
Progress Note: Subjective Subjective Interval history: Patient developed nausea and vomiting this morning. No bowel movement, some abdominal discomfort. Stat X-ray of the abdomen was negative for obstruction. Given antiemetics, started Miralax and docusate scheduled. Viral panel negative. Exam Narrative Exam Narrative: General: Patient is alert, and oriented to person, place and time with normal affect, proper hygiene Skin: no visible rashes, or ulcers Head: atraumatic, acephalic Eyes: PERRLA, no nystagmus present, conjunctiva clear, no scleral icterus Ears: normal gross auditory acuity Heart: Normal rate and rhythm, no murmurs/rubs/gallops Lungs: no audible wheezes, crackles and normal breath sounds all lung horton Abdomen: dimnished but audible bowel sounds, no distension, umbilical hernia still reducible and nontender, no organomegaly, no rebound/guarding/ or rigidity Musculoskeletal: patient in brace and splint Vascular: Normal posterior tibial, and dorsalis pedis pulses Neuro: CN II-X grossly intact Constitutional Vital Signs, click to edit/add: Last Vital Signs Temp 98.7 F 09/30/23 04:00 Pulse 113 H 09/30/23 04:00 Resp 18 09/30/23 04:00 BP 150/71 H 09/30/23 04:00 Pulse Ox 91 L 09/30/23 04:00 O2 Del Method Room Air 09/30/23 04:00 O2 Flow Rate 3 09/28/23 05:20 Progress Note: Objective Labs Labs: Short CBC 09/30/23 Range/Units 04:41 WBC 14.5 H (4.0-11.0) 10^3/uL Hgb 11.7 L (14.0-18.0) g/dL Hct 35.9 L (42.0-54.0) % Plt Count 198 (150-450) 10^3/uL BMP 09/30/23 04:41 Sodium 140 Potassium 4.1 Chloride 100 Carbon Dioxide 32.5 H BUN 50.0 H Creatinine 2.02 H Glucose 180 H Calcium 8.6 Liver Function 09/30/23 Range/Units 04:41 Total Bilirubin 0.7 (0.2-1.0) mg/dL AST 22 (15-37) U/L ALT 23 (16-63) U/L Alkaline Phosphatase 56 (46-116) U/L Albumin 2.7 L (3.4-5.0) g/dL Progress Note: A&P Assessment and Plan (1) Fracture of tibial plateau: Assessment and Plan: continue percocet, continue home Neurontin, hinged knee brace, NWB RLE; awaiting placement for rehab Qualifiers: Encounter type: initial encounter Fracture type: closed Laterality: right Qualified Code(s): S82.141A - Displaced bicondylar fracture of right tibia, initial encounter for closed fracture (2) Neuropathy: Assessment and Plan: continue gabapentin (3) Sleep apnea: Assessment and Plan: continue BiPAP Qualifiers: Sleep apnea type: obstructive Qualified Code(s): G47.33 - Obstructive sleep apnea (adult) (pediatric) (4) Hypertension: Assessment and Plan: continue home medications of metoprolol, losartan and Lasix Qualifiers: Hypertension type: secondary to endocrine disorders Qualified Code(s): I15.2 - Hypertension secondary to endocrine disorders (5) Diabetes: Assessment and Plan: continue insulin, sliding scale in addition if needed Qualifiers: Diabetes mellitus complication detail: with neuropathic arthropathy Diabetes mellitus complication status: with diabetic arthropathy 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 elevated more today, stop lasix, hctz and losartan, start IVF hydration Qualifiers: Acute renal failure type: unspecified Qualified Code(s): N17.9 - Acute kidney failure, unspecified (7) CAD (coronary artery disease): Assessment and Plan: history of stents 2010 and 2015, follows regularly with cards, continue atorvastatin Qualifiers: Coronary Disease-Associated Artery/Lesion type: [place] artery [place] vs. transplanted heart: [place]uni heart Associated angina: without angina Qualified Code(s): I25.10 - Atherosclerotic heart disease of [place] coronary artery without angina pectoris (8) Nausea & vomiting: Assessment and Plan: start Miralax, and docusate Qualifiers: Vomiting type: unspecified Qualified Code(s): R11.2 - Nausea with vomiting, unspecified Plan full code patient remains NWB on the Right LE
--- NOTE | 2023-09-30 09:57 | SWNOTE1 ---
MARI received call from Alona at [facility] and she will let MARI know within half hour if they can accept.
[2023-09-30 09:58] LABS: Adenovirus NOT DETECTED (NOT DETECTE); Bordetella parapertussis NOT DETECTED (NOT DETECTE); Coronavirus 229E NOT DETECTED (NOT DETECTE); Coronavirus HKU1 NOT DETECTED (NOT DETECTE); Coronavirus NL63 NOT DETECTED (NOT DETECTE); Coronavirus OC43 NOT DETECTED (NOT DETECTE); Human Metapneumovirus NOT DETECTED (NOT DETECTE); Human Rhinovirus/Enterovirus NOT DETECTED (NOT DETECTE); Influenza A NOT DETECTED (NOT DETECTE); Influenza B NOT DETECTED (NOT DETECTE); Mycoplasma pneumoniae NOT DETECTED (NOT DETECTE); Parainfluenza Virus 1 NOT DETECTED (NOT DETECTE); Parainfluenza Virus 2 NOT DETECTED (NOT DETECTE); Parainfluenza Virus 3 NOT DETECTED (NOT DETECTE); Parainfluenza Virus 4 NOT DETECTED (NOT DETECTE); Respiratory Syncytial Virus NOT DETECTED (NOT DETECTE); SARS-CoV-2 NOT DETECTED (NOT DETECTE)
--- NOTE | 2023-09-30 10:07 | PT.DAILY ---
Physical Therapy Daily Note PT Daily Note/Assess Start: 09/29/23 09:58 Freq: Status: Active Protocol: Document 09/30/23 09:30 REECE (Rec: 09/30/23 10:06 REECE [id number]) Physical Therapy Daily Note/Assessment Time In/Time Out Time In 09:30 Time Out 09:45 Pain In Pain Level 7 Pain Out Pain Level 8 Subjective Subjective Patient reports very high pain levels this AM, did not sleep well last night, very nauseated this morning. Also complaints of being constipated and uncomfortable. Does agree to attempt therapy this morning. Therapeutic Exercise Time Therapeutic Exercise Minutes (minutes) 10 Therapeutic Exercise Units 1 Therapeutic Exercise Treatment Therapeutic Exercise Treatment Began with supine exercises as able with AROM and isometrics on L LE, attempted isometrics on R LE but due to high pain levels does not complete them. Patient them becomes very nauseated and upset, and asks for nurse. Total Physical Therapy Time Total Therapy Minutes 10 Total Physical Therapy Units 1 Summary Daily Note Summary Patient demonstrates decreased ability to patriciate this AM due to severe pain and nausea . Patient did try to complete supine exercise program for L LE strengthening, but then had to stop due to reasons noted. Patient asks for nurse, so this magazine writer informed nurse how RX went and that patient was asking for her. Will re- attempt PT later today if able to work on bed mobility and transfers.
[2023-09-30] MEDS: HYDRALAZINE HCL 50 MG TABLET 100 MG PO ×2 (10:13→21:42)
[2023-09-30] MEDS: METOPROLOL TARTRATE 50 MG TABLET PO ×2 (10:13→21:42)
[2023-09-30] MEDS: AMLODIPINE BESYLATE 5 MG TABLET 10 MG PO (10:13)
[2023-09-30] MEDS: GABAPENTIN 400 MG CAPSULE 1200 MG PO ×2 (10:13→21:41)
[2023-09-30] MEDS: OXYCODONE HCL/ACETAMINOPHEN 5MG/325MG 2 TAB PO ×2 (10:13→16:23)
[2023-09-30] MEDS: ASPIRIN 325 MG TABLET PO (10:14)
[2023-09-30] MEDS: ALLOPURINOL 100 MG TABLET PO (10:14)
[2023-09-30] MEDS: CYCLOBENZAPRINE HCL 10 MG TABLET PO ×2 (10:14→21:42)
[2023-09-30] MEDS: LACTATED RINGER'S SOLUTION 1,000 ML 100 ML IV ×2 (10:20→21:42)
[2023-09-30] MEDS: INSULIN DETEMIR 300 UNIT/3 ML INSULN.PEN 65 UNIT SQ (10:20)
--- NOTE | 2023-09-30 10:31 | SWNOTE1 ---
MARI reached out to Alona again at [facility]. She voiced she has not heard back yet about a physical therapist and advised MARI to move on to another facility. MARI spoke to pt and updated him. He is agreeable to move on to another facility. He would like [facility]. Referral sent to [facility]. Referral included face sheet, ED note, H&P, provider notes, case management report, nursing notes, diagnostic imaging, med list, and PT/OT notes.
[2023-09-30 11:03] LABS: Glucometer 240 mg/dL (74-106)
--- NOTE | 2023-09-30 11:40 | CM.NOTE ---
Rounds made with Dr. Hamlin, no discharge today. Pt c/o no bowel movement in serveral days, Dr. Hamlin will put in orders.
[2023-09-30] MEDS: DOCUSATE SODIUM 100 MG CAPSULE 200 MG PO ×2 (12:00→21:41)
[2023-09-30] MEDS: POLYETHYLENE GLYCOL 3350 17 GM POWDER PACKET PO (12:00)
--- NOTE | 2023-09-30 12:40 | SWNOTE1 ---
[facility] is able to accept and have started precert. SW updated nursing and pt.
[2023-09-30 16:04] LABS: Glucometer 186 mg/dL (74-106)
[2023-09-30 20:18] LABS: Glucometer 160 mg/dL (74-106)
[2023-09-30] MEDS: ATORVASTATIN CALCIUM 40 MG TABLET 80 MG PO (21:41)
[2023-09-30] MEDS: CETIRIZINE HCL 10 MG TABLET PO (21:41)
[2023-09-30] MEDS: INSULIN DETEMIR 300 UNIT/3 ML INSULN.PEN 45 UNIT SQ (21:42)
[2023-10-01] MEDS: CALCIUM CARBONATE 500 MG (200MG ELEMENTAL) TAB CHEW PO ×2 (01:27→08:42)
[2023-10-01] MEDS: OXYCODONE HCL/ACETAMINOPHEN 5MG/325MG 2 TAB PO (03:40)
[2023-10-01 03:45] VITALS: BP 156/73; PULSE 100; RESP 18; TEMP 37.1; O2SAT 90
[2023-10-01 05:10] VITALS: O2SAT 90
[2023-10-01 05:49] LABS: Basophils Percent Auto 0.2 % (0.2-2.0); Eosinophils Absolute Auto 0.1 10^3/uL (0.0-0.7); Eosinophils Percent Auto 0.5 % (0.9-7.0); Hemoglobin 10.9 g/dL (14.0-18.0); Immature Granulocytes Abs Auto 0.06 10^3/uL (0.00-0.03); Immature Granulocytes Pct Auto 0.5 % (0.0-0.5); Lymphocytes Absolute Auto 1.3 10^3/uL (1.2-3.8); Lymphocytes Percent Auto 9.5 % (20.5-60.0); Mean Corpuscular HGB Conc 32.1 g/dL (29.9-35.2); Mean Corpuscular Hemoglobin 30.4 pg (25.9-34.0); Mean Corpuscular Volume 94.7 fL (80.0-94.0); Mean Platelet Volume 9.2 fL (9.5-13.5); Monocytes Percent Auto 7.3 % (1.7-12.0); Neutrophils Absolute Auto 10.9 10^3/uL (1.4-6.5); Platelet Count 200 10^3/uL (150-450); Red Blood Count 3.59 10^6/uL (4.70-6.10); Red Cell Distribution Width 12.2 % (11.0-15.0); White Blood Count 13.3 10^3/uL (4.0-11.0)
[2023-10-01 06:22] LABS: Alanine Aminotransferase 22 U/L (16-63); Albumin Globulin Ratio 0.6; Albumin Level 2.5 g/dL (3.4-5.0); Alkaline Phosphatase 52 U/L (46-116); Anion Gap 9.2; Aspartate Amino Transferase 19 U/L (15-37); BUN Creatinine Ratio 31.5; Bilirubin Total 0.6 mg/dL (0.2-1.0); Calcium 8.3 mg/dL (8.5-10.1); Carbon Dioxide 32.9 mmol/L (21.0-32.0); Chloride 102 mmol/L (98-107); Estimated GFR (African America 46 (>=60); Estimated GFR (Non-African Ame 38 (>=60); Globulin 3.9 g/dL; Glucose 105 mg/dL (74-106); Potassium 4.1 mmol/L (3.5-5.1); Sodium 140 mmol/L (136-145); Total Protein 6.4 g/dL (6.4-8.2)
[2023-10-01 08:20] VITALS: BP 155/69; PULSE 96; RESP 20; TEMP 37.7; O2SAT 92
--- NOTE | 2023-10-01 08:21 | PM.PN ---
Progress Note: Subjective Subjective Interval history: Patient developed nausea and vomiting this morning. No bowel movement, some abdominal discomfort. Stat X-ray of the abdomen was negative for obstruction. Given antiemetics, started Miralax and docusate scheduled. Viral panel negative. Exam Constitutional Vital Signs, click to edit/add: Last Vital Signs Temp 98.7 F 10/01/23 03:45 Pulse 100 H 10/01/23 03:45 Resp 18 10/01/23 03:45 BP 156/73 H 10/01/23 03:45 Pulse Ox 90 L 10/01/23 05:10 O2 Del Method Home BIPAP / CPAP 10/01/23 05:10 O2 Flow Rate 4 10/01/23 05:10 Progress Note: Objective Labs Labs: Short CBC 10/01/23 Range/Units 04:58 WBC 13.3 H (4.0-11.0) 10^3/uL Hgb 10.9 L (14.0-18.0) g/dL Hct 34.0 L (42.0-54.0) % Plt Count 200 (150-450) 10^3/uL BMP 10/01/23 04:58 Sodium 140 Potassium 4.1 Chloride 102 Carbon Dioxide 32.9 H BUN 56.0 H Creatinine 1.78 H Glucose 105 Calcium 8.3 L Liver Function 10/01/23 Range/Units 04:58 Total Bilirubin 0.6 (0.2-1.0) mg/dL AST 19 (15-37) U/L ALT 22 (16-63) U/L Alkaline Phosphatase 52 (46-116) U/L Albumin 2.5 L (3.4-5.0) g/dL Progress Note: A&P Assessment and Plan (1) Fracture of tibial plateau: Qualifiers: Encounter type: initial encounter Fracture type: closed Laterality: right Qualified Code(s): S82.141A - Displaced bicondylar fracture of right tibia, initial encounter for closed fracture (2) Neuropathy: (3) Sleep apnea: Qualifiers: Sleep apnea type: obstructive Qualified Code(s): G47.33 - Obstructive sleep apnea (adult) (pediatric) (4) Hypertension: Qualifiers: Hypertension type: secondary to endocrine disorders Qualified Code(s): I15.2 - Hypertension secondary to endocrine disorders (5) Diabetes: Qualifiers: Diabetes mellitus type: type 2 Diabetes mellitus medical terminologist insulin use: with mcfp use Diabetes mellitus complication status: with diabetic arthropathy Diabetes mellitus complication detail: with neuropathic arthropathy Qualified Code(s): E11.610 - Type 2 diabetes mellitus with diabetic neuropathic arthropathy; Z79.4 - FPC (current) use of insulin (6) Acute renal failure: Qualifiers: Acute renal failure type: unspecified Qualified Code(s): N17.9 - Acute kidney failure, unspecified (7) CAD (coronary artery disease): Qualifiers: Coronary Disease-Associated Artery/Lesion type: [place] artery [place] vs. transplanted heart: [place] heart Associated angina: without angina Qualified Code(s): I25.10 - Atherosclerotic heart disease of [place] coronary artery without angina pectoris (8) Nausea & vomiting: Qualifiers: Vomiting type: unspecified Qualified Code(s): R11.2 - Nausea with vomiting, unspecified
[2023-10-01] MEDS: METOPROLOL TARTRATE 50 MG TABLET PO (08:35)
[2023-10-01] MEDS: DOCUSATE SODIUM 100 MG CAPSULE 200 MG PO (08:35)
[2023-10-01] MEDS: GABAPENTIN 400 MG CAPSULE 1200 MG PO (08:35)
[2023-10-01] MEDS: HYDRALAZINE HCL 50 MG TABLET 100 MG PO (08:36)
[2023-10-01] MEDS: FAMOTIDINE 20 MG TABLET PO (08:36)
[2023-10-01] MEDS: OXYCODONE HCL/ACETAMINOPHEN 5MG/325MG 1 TAB PO ×2 (08:36→12:53)
[2023-10-01] MEDS: ASPIRIN 325 MG TABLET PO (08:36)
[2023-10-01] MEDS: AMLODIPINE BESYLATE 5 MG TABLET 10 MG PO (08:36)
[2023-10-01] MEDS: ALLOPURINOL 100 MG TABLET PO (08:36)
--- NOTE | 2023-10-01 09:21 | SWNOTE1 ---
SW received message from [facility] and pt is approved to go. MARI updated case assembler who is with doctor.
[2023-10-01 09:33] VITALS: O2SAT 92
[2023-10-01] MEDS: POLYETHYLENE GLYCOL 3350 17 GM POWDER PACKET PO (09:45)
[2023-10-01 09:46] VITALS: TEMP 37.2
--- NOTE | 2023-10-01 10:12 | PT.DAILY ---
Physical Therapy Daily Note PT Daily Note/Assess Start: 09/29/23 09:58 Freq: Status: Active Protocol: Document 10/01/23 10:02 LONDON (Rec: 10/01/23 10:12 LONDON [id number]) Physical Therapy Daily Note/Assessment Time In/Time Out Time In 09:05 Time Out 09:40 Pain In Pain N/A Pain Out Pain N/A Subjective Subjective Pt supine upon arrival. Agrees to PT. Cont to have upset stomach, no emesis this morning. Therapeutic Activity Time Therapeutic Activity Minutes (minutes) 25 Therapeutic Activity Treatment Bed Mobility Ability Maximum Assist Chair Transfer Ability Maximum Assist,2 Person Assist Therapeutic Activity Comments Pt performs supine>sit transfer with MaxA needed for R LE and to advance upper body to sit at EOB. Pt sits EOB to get washed up 10 min total unsupported. Pt is able to doff gown but needs set up to wash front of upper body, needs full assistance to wash his back and apply lotion. Pt able to apply deodorant and arvin new gown. Pt needs to use commode. Stand pivot from elevated bed to BS commode MaxA. Pt unable to fully maintain NWB R LE. Pt sits on commode with no luck having bowel movement. Pt wishes to return to bed. Stand pivot back to bed with MaxA+2 this attempt- still unable to fully maintain NWB R LE. Pt returned supine with MaxA for lower body then total assist to scoot him up in bed. Pillows placed under R LE, head elevated and call light is within reach. Total Physical Therapy Time Total Therapy Minutes 25 Summary Daily Note Summary Poor tolerance to activity. Very easily fatigued and increased pain. Pt is unable to maintain NWB through R LE even with MaxA+2. Pt will benefit from SNF to regain strength and endurance.
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
--- NOTE | 2023-10-01 10:30 | CM.NOTE ---
Rounds made with Dr. Hamlin, pt will discharge to [facility] today for skilled therapy.
[2023-10-01 11:31] LABS: Glucometer 162 mg/dL (74-106)
--- NOTE | 2023-10-01 11:44 | PC.NURSE ---
Report called to Penny at [facility].
--- NOTE | 2023-10-01 11:55 | SWNOTE1 ---
MARI sent dc med rec and dc summary to [facility]. MARI completed HENS. MARI called and set up [facility] and they will be here around 2:30pm. MARI updated nursing, pt/pt's , and [facility] of time. Pt is going skilled.
== END 2023-10-01 15:26 ==
LOC: ER 23:52 → ICU 09-27 00:23 → MS 09-28 17:52
PROVIDERS: Physician Assistant; Admitting Provider Family Medicine; Emergency Provider Emergency Medicine; PCP Family Medicine; Visit Provider Family Medicine
DX: S82.144A Nondisplaced bicondylar fracture of right tibia, initial encounter for closed fracture (principal); E11.42 Type 2 diabetes mellitus with diabetic polyneuropathy; G47.33 Obstructive sleep apnea (adult) (pediatric); I15.2 Hypertension secondary to endocrine disorders; E11.610 Type 2 diabetes mellitus with diabetic neuropathic arthropathy; N17.9 Acute kidney failure, unspecified; I25.10 Atherosclerotic heart disease of native coronary artery without angina pectoris; Z95.5 Presence of coronary angioplasty implant and graft; R11.2 Nausea with vomiting, unspecified; E11.22 Type 2 diabetes mellitus with diabetic chronic kidney disease; N18.9 Chronic kidney disease, unspecified; K42.9 Umbilical hernia without obstruction or gangrene; I87.2 Venous insufficiency (chronic) (peripheral); Z79.899 Other long term (current) drug therapy; V86.55XA Driver of 3- or 4- wheeled all-terrain vehicle (ATV) injured in nontraffic accident, initial encounter; Z79.82 Long term (current) use of aspirin; Z79.4 Long term (current) use of insulin; Z20.822 Contact with and (suspected) exposure to COVID-19; Z96.652 Presence of left artificial knee joint
CPT/HCPCS: 0202U; 36415; 70450; 72125; 72170; 72192; 73552; 73564; 73590; 73610; 73630; 73700; 73721; 74018; 80053; 82948; 83036; 85025; 85610; 93005; 94761; 96374; 96375; 96376; 97110; 97162; 97165; 97530; 99285; G0378; J1170

== ENCOUNTER 2023-10-06 01:12 | Outpatient (REF) | payer MEDICARE, SELFPAY ==
[2023-10-06 07:51] LABS: Basophils Percent Auto 0.3 % (0.2-2.0); Eosinophils Absolute Auto 0.4 10^3/uL (0.0-0.7); Eosinophils Percent Auto 3.4 % (0.9-7.0); Hemoglobin 10.7 g/dL (14.0-18.0); Immature Granulocytes Abs Auto 0.03 10^3/uL (0.00-0.03); Immature Granulocytes Pct Auto 0.2 % (0.0-0.5); Lymphocytes Absolute Auto 2.1 10^3/uL (1.2-3.8); Lymphocytes Percent Auto 16.1 % (20.5-60.0); Mean Corpuscular HGB Conc 31.5 g/dL (29.9-35.2); Mean Corpuscular Volume 95.2 fL (80.0-94.0); Monocytes Absolute Auto 0.8 10^3/uL (0.3-0.8); Monocytes Percent Auto 6.6 % (1.7-12.0); Neutrophils Absolute Auto 9.4 10^3/uL (1.4-6.5); Neutrophils Percent Auto 73.4 % (43.0-75.0); Platelet Count 274 10^3/uL (150-450); Red Blood Count 3.57 10^6/uL (4.70-6.10); Red Cell Distribution Width 12.1 % (11.0-15.0); White Blood Count 12.8 10^3/uL (4.0-11.0)
[2023-10-06 08:29] LABS: Anion Gap 11.9; BUN Creatinine Ratio 16.1; Calcium 8.6 mg/dL (8.5-10.1); Carbon Dioxide 29.8 mmol/L (21.0-32.0); Chloride 105 mmol/L (98-107); Estimated GFR (African America 59 (>=60); Estimated GFR (Non-African Ame 49 (>=60); Glucose 103 mg/dL (74-106); Potassium 4.7 mmol/L (3.5-5.1); Sodium 142 mmol/L (136-145)
== END 2023-10-06 01:13 | disposition home or self-care (01) ==
LOC: LAB 01:12
PROVIDERS: PCP Family Medicine; Visit Provider Nurse Practitioner Family
DX: M79.661 Pain in right lower leg (principal); S82.144A Nondisplaced bicondylar fracture of right tibia, initial encounter for closed fracture; R11.2 Nausea with vomiting, unspecified
CPT/HCPCS: 36415; 73590; 80048; 85025

== ENCOUNTER 2023-10-06 08:54 | Outpatient (OUT) | payer MEDICARE, SELFPAY ==
--- NOTE | 2023-10-06 | XR_ITS ---
[address] [address] Patient Name: MACKENZIE SKY MRN: [id number] date: 1955 Sex: M Assigned Patient Location: Current Patient Location: Accession/Order Number: [id number] Exam Date: 10/06/2023 09:00 Report Date: 10/07/2023 06:44 At the request of: DOMINGO BOSS Procedure: XR tibia fibula RT 2V PROCEDURE: XR tibia fibula RT 2V HISTORY: RIGHT LOWER LEG PAIN ; right tibia-fibula pain; recent tibial plateau fracture COMPARISON: XR tibia fibula right 09/26/2023, CT right knee 09/26/2023 FINDINGS: BONES:Stable nondisplaced fracture involving the intercondylar spines and lateral tibial plateau. Chronic degenerative changes of the knee joint and ankle. SOFT TISSUES:No visible soft tissue swelling. EFFUSION:None visible. OTHER: Negative. XR/XR tibia fibula RT 2V IMPRESSION: 1. Stable nondisplaced tibial plateau fracture. 2. Chronic degenerative changes. Electronically authenticated by: DOMINGO LADD Date: 10/07/2023 06:44
== END 2023-10-06 08:55 | disposition home or self-care (01) ==
LOC: EC 08:54
PROVIDERS: PCP Family Medicine; Visit Provider Orthopaedic Surgery
DX: M79.661 Pain in right lower leg (principal); S82.144A Nondisplaced bicondylar fracture of right tibia, initial encounter for closed fracture
CPT/HCPCS: 73590

== ENCOUNTER 2023-10-07 15:30 | Outpatient (REF) | payer MEDICARE, SELFPAY ==
[2023-10-08 08:10] LABS: Bilirubin Urine NEGATIVE (NEGATIVE); Blood Urine NEGATIVE (NEGATIVE); Clarity Urine CLEAR (CLEAR); Color Urine YELLOW (YELLOW); Glucose Urine UA NEGATIVE (NEGATIVE); Ketones Urine NEGATIVE (NEGATIVE); Leukocyte Esterase Urine NEGATIVE (NEGATIVE); Nitrite Urine NEGATIVE (NEGATIVE); Protein Urine NEGATIVE (NEG/TRACE); Specific Gravity Urine 1.025 (1.005-1.025); Urobilinogen Urine 0.2 EU/dL (0.2-1.0); pH Urine 5.5 (5.0-9.0)
[2023-10-08 08:12] LABS: Urine Microscopic Indicated NO
== END 2023-10-07 15:31 | disposition home or self-care (01) ==
LOC: LAB 15:30
PROVIDERS: PCP Family Medicine; Visit Provider Nurse Practitioner Family
DX: R11.2 Nausea with vomiting, unspecified (principal)
CPT/HCPCS: 81003

== ENCOUNTER 2023-10-10 02:17 | Outpatient (REF) | payer MEDICARE, SELFPAY ==
[2023-10-10 08:09] LABS: Basophils Percent Auto 0.4 % (0.2-2.0); Eosinophils Absolute Auto 0.3 10^3/uL (0.0-0.7); Eosinophils Percent Auto 3.3 % (0.9-7.0); Hematocrit 34.1 % (42.0-54.0); Hemoglobin 10.9 g/dL (14.0-18.0); Immature Granulocytes Abs Auto 0.05 10^3/uL (0.00-0.03); Immature Granulocytes Pct Auto 0.5 % (0.0-0.5); Lymphocytes Absolute Auto 2.2 10^3/uL (1.2-3.8); Lymphocytes Percent Auto 21.1 % (20.5-60.0); Mean Corpuscular Hemoglobin 29.9 pg (25.9-34.0); Mean Corpuscular Volume 93.7 fL (80.0-94.0); Monocytes Absolute Auto 0.8 10^3/uL (0.3-0.8); Monocytes Percent Auto 7.3 % (1.7-12.0); Neutrophils Percent Auto 67.4 % (43.0-75.0); Platelet Count 305 10^3/uL (150-450); Red Blood Count 3.64 10^6/uL (4.70-6.10); Red Cell Distribution Width 12.3 % (11.0-15.0); White Blood Count 10.3 10^3/uL (4.0-11.0)
== END 2023-10-10 02:18 | disposition home or self-care (01) ==
LOC: LAB 02:17
PROVIDERS: PCP Family Medicine; Visit Provider Family Medicine
DX: D72.829 Elevated white blood cell count, unspecified (principal)
CPT/HCPCS: 36415; 85025

== ENCOUNTER 2023-10-20 11:46 | Outpatient (OUT) | payer MEDICARE, SELFPAY ==
--- NOTE | 2023-10-20 | XR_ITS ---
The [address] [address] Patient Name: MACKENZIE SKY MRN: [id number] date: 1955 Sex: M Assigned Patient Location: Current Patient Location: Accession/Order Number: [id number] Exam Date: 10/20/2023 11:47 Report Date: 10/21/2023 09:30 At the request of: DOMINGO BOSS Procedure: XR tibia fibula RT 2V PROCEDURE: XR tibia fibula RT 2V COMPARISON: 10/06/2023 HISTORY: RIGHT LOWER LEG PAIN FINDINGS: BONES:Again demonstrated is lucency with new sclerosis involving both the medial and lateral tibial plateaus consistent with a nondisplaced subacute healing fracture. No new fracture or dislocation. Degenerative changes of the knee and ankle, moderate SOFT TISSUES:Negative. No visible soft tissue swelling. EFFUSION:None visible. OTHER: Negative. XR/XR tibia fibula RT 2V IMPRESSION: Stable healing tibial plateau fractures Electronically authenticated by: JULIANN MOTLEY Date: 10/21/2023 09:30
== END 2023-10-20 11:47 | disposition home or self-care (01) ==
LOC: EC 11:46
PROVIDERS: PCP Family Medicine; Visit Provider Orthopaedic Surgery
DX: S82.391D Other fracture of lower end of right tibia, subsequent encounter for closed fracture with routine healing (principal); S82.141D Displaced bicondylar fracture of right tibia, subsequent encounter for closed fracture with routine healing
CPT/HCPCS: 73590

== ENCOUNTER 2023-11-07 09:05 | Outpatient (OUT) | payer MEDICARE, SELFPAY ==
[2023-11-07 10:37] LABS: Microalbum Creatinine Ratio Ur 10.1 mg/g (0.0-29.9); Microalbumin Urine Random <1.3 mg/dL (<=30.0)
[2023-11-07 10:44] LABS: Basophils Percent Auto 0.4 % (0.2-2.0); Eosinophils Absolute Auto 0.2 10^3/uL (0.0-0.7); Eosinophils Percent Auto 2.2 % (0.9-7.0); Hematocrit 36.9 % (42.0-54.0); Hemoglobin 11.7 g/dL (14.0-18.0); Immature Granulocytes Abs Auto 0.02 10^3/uL (0.00-0.03); Immature Granulocytes Pct Auto 0.2 % (0.0-0.5); Lymphocytes Absolute Auto 2.2 10^3/uL (1.2-3.8); Lymphocytes Percent Auto 22.9 % (20.5-60.0); Mean Corpuscular HGB Conc 31.7 g/dL (29.9-35.2); Mean Corpuscular Hemoglobin 29.3 pg (25.9-34.0); Mean Corpuscular Volume 92.5 fL (80.0-94.0); Mean Platelet Volume 9.8 fL (9.5-13.5); Monocytes Absolute Auto 0.6 10^3/uL (0.3-0.8); Monocytes Percent Auto 6.5 % (1.7-12.0); Neutrophils Absolute Auto 6.5 10^3/uL (1.4-6.5); Neutrophils Percent Auto 67.8 % (43.0-75.0); Platelet Count 189 10^3/uL (150-450); Red Blood Count 3.99 10^6/uL (4.70-6.10); Red Cell Distribution Width 12.6 % (11.0-15.0); White Blood Count 9.5 10^3/uL (4.0-11.0)
[2023-11-07 10:50] LABS: Alanine Aminotransferase 20 U/L (16-63); Albumin Globulin Ratio 0.8; Albumin Level 2.9 g/dL (3.4-5.0); Alkaline Phosphatase 68 U/L (46-116); Anion Gap 9.4; Aspartate Amino Transferase 15 U/L (15-37); Bilirubin Total 0.5 mg/dL (0.2-1.0); Calcium 9.1 mg/dL (8.5-10.1); Carbon Dioxide 32.3 mmol/L (21.0-32.0); Chloride 106 mmol/L (98-107); Chol HDL Ratio 2.4; Cholesterol 105 mg/dL (<=200); Estimated GFR (African America >60 (>=60); Estimated GFR (Non-African Ame 58 (>=60); Globulin 3.8 g/dL; Glucose 74 mg/dL (74-106); HDL Cholesterol 43 mg/dL (40-60); LDL Cholesterol Calculated 51.6 mg/dL; Potassium 3.7 mmol/L (3.5-5.1); Sodium 144 mmol/L (136-145); Total Protein 6.7 g/dL (6.4-8.2); Triglycerides 52 mg/dL (<=150); Uric Acid 5.8 mg/dL (3.5-7.2); VLDL CHOLESTEROL 10.4 mg/dL
[2023-11-07 11:02] LABS: Prostate Specific Antigen Scrn 0.59 ng/mL (<=4.00)
[2023-11-09 11:10] LABS: PTH, Intact 30 pg/mL (15-65)
== END 2023-11-07 09:06 | disposition home or self-care (01) ==
LOC: LAB 09:05
PROVIDERS: PCP Family Medicine; Visit Provider Family Medicine
DX: E11.22 Type 2 diabetes mellitus with diabetic chronic kidney disease (principal); N18.31 Chronic kidney disease, stage 3a; E78.00 Pure hypercholesterolemia, unspecified; M1A.9XX0 Chronic gout, unspecified, without tophus (tophi); Z12.5 Encounter for screening for malignant neoplasm of prostate
CPT/HCPCS: 36415; 80053; 80061; 82043; 82570; 83970; 84550; 85025; G0103

== ENCOUNTER 2023-11-17 10:33 | Outpatient (OUT) | payer MEDICARE, SELFPAY ==
--- NOTE | 2023-11-17 | XR_ITS ---
The [address] [address] Patient Name: MACKENZIE SKY MRN: [id number] date: 1955 Sex: M Assigned Patient Location: Current Patient Location: Accession/Order Number: [id number] Exam Date: 11/17/2023 10:36 Report Date: 11/17/2023 15:26 At the request of: DOMINGO BOSS Procedure: XR tibia fibula RT 2V PROCEDURE: XR tibia fibula RT 2V COMPARISON: 10/20/2023 HISTORY: RIGHT LOWER LEG PAIN FINDINGS: BONES:Again demonstrated is a complex intra-articular fracture of the proximal tibia involving the lateral aspect of the medial tibial plateau extending into the interspinous the region as well as the lateral tibial plateau. Increase in sclerosis. No change in angulation or distraction. Moderate degenerative changes with moderate narrowing of medial joint space SOFT TISSUES:Diffuse soft tissue swelling EFFUSION:None visible. OTHER: Negative. XR/XR tibia fibula RT 2V IMPRESSION: Stable healing tibial plateau fractures Electronically authenticated by: JULIANN MOTLEY Date: 11/17/2023 15:26
== END 2023-11-17 10:34 | disposition home or self-care (01) ==
LOC: EC 10:33
PROVIDERS: PCP Family Medicine; Visit Provider Orthopaedic Surgery
DX: S82.141D Displaced bicondylar fracture of right tibia, subsequent encounter for closed fracture with routine healing (principal); S82.391D Other fracture of lower end of right tibia, subsequent encounter for closed fracture with routine healing
CPT/HCPCS: 73590

== ENCOUNTER 2024-01-12 10:36 | Outpatient (OUT) | payer MEDICARE, SELFPAY ==
--- NOTE | 2024-01-12 | XR_ITS ---
The [address] [address] Patient Name: MACKENZIE SKY MRN: [id number] date: 1955 Sex: M Assigned Patient Location: Current Patient Location: Accession/Order Number: [id number] Exam Date: 01/12/2024 10:40 Report Date: 01/12/2024 13:05 At the request of: DOMINGO BOSS Procedure: XR knee RT 2V PROCEDURE: XR knee RT 2V COMPARISON: 10/06/2023 HISTORY: RIGHT KNEE PAIN FINDINGS: BONES:Continued healing of a complex medial lateral tibial plateau fracture, less well-defined than on the prior exam. Likely fracture of the lateral tibial spine . Moderate departmental osteoarthritis with narrowing of the medial joint space and marginal osteophyte formation SOFT TISSUES:Negative. No visible soft tissue swelling. EFFUSION:None visible. OTHER: Negative. XR/XR knee RT 2V IMPRESSION: Stable healing tibial plateau fracture Electronically authenticated by: JULIANN MOTLEY Date: 01/12/2024 13:05
--- OUTSIDE RECORDS SUMMARY | 2024-01-12 10:57 | XMS_ITS | CCD ---
Author Organization [facility] Inform ion Partnership [facility] Care Team Providers Care Hydraulic Repairer Name Role Phone Sea Voss Admitting Unavailable Sea Voss Attending Unavailable JOSH PRO Primary Care Unavailable CRIS HERRING Referring Unavailable UT Procedure Practitioner Unavailab REEMA Moreira ABD Surgeon Unavailable UT Procedure Practitioner Unavailab CYNTHIA Moreno Surgeon Unavailable UT Procedure Practitioner Unavailab Sea Espinoza Surgeon Unavailable Josh Pro MD Primary Care Provider [phone] JOSH PRO Primary Care Unavailable LATOYA MOYER Attending Unavailable PRO, DR JOSH Osorio Primary Care Unavailable PRO, DR JOSH Osorio Admitting Unavailable PRO, DR JOSH Osorio Attending Unavailable PRO, DR JOSH Osorio Consulting Unavailable PRO, DR JOSH Osorio Primary Care Unavailable MOUKARBEL, DR LAZARO Attending Unavailable MOUKARBEL, DR LAZARO Consulting Unavailable MOUKARBEL, DR LAZARO Admitting Unavailable CEDRIC SCHULTZ Attending Unavailable MOUKARBTEJAS ASHER Attending Unavailable EPIFANIO BISHOP Attending Unavailable EPIFANIO BISHOP Attending Unavailable DEMARCO BRUNSON Attending Unavailable DEMARCO BRUNSON Attending Unavailable DEMARCO BRUNSON Attending Unavailable DEMARCO BRUNSON Attending Unavailable DEMARCO BRUNSON Attending Unavailable Allergies Allergy Classification Reported Allergen(s) Allergy Type Date of Onset Reaction(s) Facility (1 source) 10991,00; Translations: [Unknown] Propensity to adverse reactions (disorder) 9 [facility] Repository Medications Current Medications Medication Drug Class(es) Dates Sig (Normalized) Sig (Original) allopurinol 100 mg oral tablet (1 source) Xanthine Oxidase Inhibitor Start: 03-28-2021 take 1 tablet by mouth once daily allopurinol (ZYLOPRIM) 100 MG tablet TAKE 1 TABLET BY MOUTH EVERY DAY 0 03/28/2021 Active amLODIPine 10 mg oral tablet (1 source) Dihydropyridine Calcium Channel Sondra take 1 tablet by mouth once daily amLODIPine (NORVASC) 10 MG tablet amlodipine 10 mg tablet TAKE 1 TABLET BY MOUTH EVERY DAY 0 Active aspirin 81 mg delayed release oral tablet (1 source) Platelet Aggregation Inhibitor, Nonsteroidal Anti-inflammatory Drug take 1 tablet by mouth once daily aspirin 81 MG EC tablet Aspir-81 mg tablet,delayed release Take 1 tablet every day by oral route. 0 Active atorvastatin 80 mg oral tablet (1 source) HMG-CoA Reductase Inhibitor take 1 tablet by mouth once daily atorvastatin (LIPITOR) 80 MG tablet atorvastatin 80 mg tablet TAKE 1 TABLET BY MOUTH DAILY 0 Active furosemide 40 mg oral tablet (1 source) Loop Diuretic take 1 tablet by mouth once daily furosemide (LASIX) 40 MG tablet furosemide 40 mg tablet TAKE 1 TABLET BY MOUTH EVERY DAY 0 Active gabapentin 600 mg oral tablet (1 source) Anti-epileptic Agent take 2 tablets by mouth twice daily gabapentin (NEURONTIN) 600 MG tablet gabapentin 600 mg tablet TAKE 2 TABLETS BY MOUTH TWICE DAILY 0 Active insulin isophane, human 70 unt/ml / insulin, regular, human 30 unt/ml injectable suspension (1 source) Insulin inject 75 [IU] by subcutaneous injection twice daily, then inject 100 [IU] by subcutaneous injection once insulin 70-30 (HUMULIN 70/30) (70-30) 100 UNIT per ML injection vial Humulin 70/30 U-100 Insulin 100 unit/mL subcutaneous suspension ADMINISTER 75 UNITS UNDER THE SKIN TWICE DAILY 0 Active insulin lispro 100 unt/ml injectable solution (1 source) Insulin Analog insulin lispro (HUMALOG) 100 UNIT/ML injection vial Inject into the skin 3 times daily (before meals) 10 units if needed 0 Active latanoprost 0.05 mg/ml ophthalmic solution (1 source) Prostaglandin Analog take 1 drop(s) into the eye(s) once daily latanoprost (XALATAN) 0.005 % ophthalmic solution 1 drop nightly 0 Active losartan potassium 25 mg oral tablet (1 source) Angiotensin 2 Receptor Sondra take 1 tablet by mouth once daily losartan (COZAAR) 25 MG tablet Take 25 mg by mouth daily 0 Active metoprolol tartrate 50 mg oral tablet (3 sources) beta-Adrenergic Sondra Start: 04-16-2021 take 1 tablet by mouth twice daily metoprolol tartrate (LOPRESSOR) 50 MG tablet TAKE 1 TABLET BY MOUTH TWICE DAILY 0 04/16/2021 Active take 1 tablet by mouth once [place] y metoprolol succinate (TOPROL XL) 100 MG extended release tablet Take 100 mg by mouth daily 0 Active take 2 tablets by mouth twice da earl metoprolol tartrate (LOPRESSOR) 50 MG tablet metoprolol tartrate 50 mg tablet TAKE 2 TABLET BY MOUTH TWICE DAILY 0 Active Completed/Discontinued Medications Medication Drug Class(es) Dates Sig (Normalized) Sig (Original) insulin glargine 100 unt/ml injectable solution (1 source) Insulin Analog End: 06-04-2021 insulin glargine (LANTUS) 100 UNIT/ML injection vial Inject into the skin nightly 0 06/04/2021 Discontinued (LIST CLEANUP) 50 ml sodium chloride 9 mg/ml injection (1 source) Start: 06-04-2021 End: 06-04-2021 0.9 % sodium chloride bolus Problems Active Problems Problem Classification Problem Date Documented Date Episodic/Chronic Aortic; peripheral; and visceral artery aneurysms (2 sources) Thoracic aortic ectasia; Translations: [Thoracic aortic ectasia] Onset: 06-25-2023 Chronic Chronic kidney disease (2 sources) Chronic kidney disease, unspecified; Translations: [Chronic kidney disease, unspecified] Onset: 05-29-2022 Chronic Chronic kidney disease (2 sources) Chronic kidney disease; Translations: [Chronic kidney disease, stage 3b] Onset: 05-29-2022 Congestive heart failure; nonhypertensive (6 sources) Chronic diastolic (congestive) heart failure; Translations: [CHRONIC DIASTOLIC HEART FAILURE] Onset: 10-29-2021 Chronic Coronary atherosclerosis and other heart disease (2 sources) Atherosclerotic heart disease of [place] coronary artery without angina pectoris; Translations: [Atherosclerotic heart disease of [place] coronary artery without angina pectoris] Onset: 11-20-2022 Chronic Disorders of lipid metabolism (3 sources) Mixed hyperlipidemia; Translations: [MIXED HYPERLIPIDEMIA] Onset: 04-11-2022 Chronic Essential hypertension (3 sources) Essential (primary) hypertension; Translations: [ESSENTIAL PRIMARY HYPERTENSION] Onset: 04-11-2022 Chronic Gout and other crystal arthropathies (4 sources) Gout, unspecified; Translations: [GOUT UNSPECIFIED] Onset: 04-08-2022 Chronic Other endocrine disorders (1 source) Hypoglycemia; Translations: [Hypoglycemia, unspecified] Chronic Other screening for suspected conditions (not mental disorders or infectious disease) (1 source) Encounter for screening for malignant neoplasm of prostate; Translations: [ENC SCREEN MALIG NEOPLASM PROSTATE] Onset: 04-11-2022 Episodic Pulmonary heart disease (2 sources) Secondary pulmonary arterial hypertension; Translations: [Secondary pulmonary arterial hypertension] Onset: 11-20-2022 Chronic Unclassified (2 sources) Decreased Range Of Motion; Translations: [Decreased Range Of Motion] Onset: 12-04-2022 Unclassified (2 sources) Post-op; Translations: [Post-op] Onset: 12-04-2022 Past or Other Problems Problem Classification Problem Date Documented Da te Episodic/Chronic Other connective tissue disease (2 sources) Palmar fascial fibromatosis [Dupuytren]; Translations: [Palmar fascial fibromatosis (dupuytren)] Onset: 12-30-2022 Episodic Other nervous system disorders (2 sources) Numbness; Translations: [Numbness] Onset: 12-04-2022 Episodic Residual codes; unclassified (2 sources) Edema; Translations: [Edema] Onset: 12-04-2022 Episodic Residual codes; unclassified (2 sources) Pain; Translations: [Pain] Onset: 12-04-2022 Episodic Results Test Name Value Interpretation Reference Range Facility Office Visiton 06-25-2023 Follow-up visit [id number] Mackenzie Dumont 1955 Provider Department Center 06/25/2023 TEJAS ROJAS JERICHO [facility] Family History Problem Relation Age of Onset Coronary artery disease Brother Other Brother Family Status - Relation Status Age at Brother Level of Service:92034 UT OFFICE/OUTPATIENT ESTABLISHED LOW MDM 20 MIN Normal [facility] Follow-Upon 12-30-2022 Follow-Up [id number] Mackenzie Dumont 1955 Provider Department Center 12/30/2022 EPIFANIO RIOS MP ORTHO MPORTHO Family History Problem Relation Age of Onset Coronary artery disease Brother Other Brother Family Status - Relation Status Age at Brother Level of Service:75157 UT OFFICE/OUTPT VISIT,PROCEDURE ONLY Reason for Visit and Comments: Follow-up [838836] Follow-up [036021] Normal [facility] 36on 12-11-2022 36 I received a VM that pt wanted to reschedule appt. I called pt back this morning and phone went to and VM was full. Normal [facility] Office Visiton 12-04-2022 Follow-up visit [id number] Mackenzie Dumont Chas 1955 M Date Provider Department Center 12/04/2022 EPIFANIO RIOS MP ORTHO MPORTHO Family History Problem Relation Age of Onset Coronary artery disease Brother Other Brother Family Status - Relation Status Age at Brother Level of Service:83013 UT OFFICE/OUTPATIENT NEW LOW MDM 30-44 MINUTES Reason for Visit and Comments: Edema [[id number]] Numbness [75] Pain [136] Decreased Range Of Motion [852] Edema [[id number]] Numbness [75] Pain [136] Post-op [483] Decreased Range Of Motion [852] Normal [facility] Office Visiton 11-20-2022 Follow-up visit [id number] Mackenzie Dumont Chas 1955 M Date Provider Department Center 11/20/2022 [id number] SCHULTZ JERICHO [facility]a [facility] Family History Problem Relation Age of Onset Coronary artery disease Brother Other Brother Family Status - Relation Status Age at Brother Level of Service:52169 UT OFFICE/OUTPATIENT ESTABLISHED MOD MDM 30-39 MIN Reason for Visit and Comments: Follow-up [910414] - 6 month follow up Normal [facility] LIPID PROFILEon 04-08-2022 CHOL-HDL RATIO NORM SEE BELOW Normal [facility] Comment on above: Result Comment: 3.3 - 4.4 LOW RISK 4.4 - 7.1 AVERAGE RISK 7.1 - 11.0 MODERATE RISK >11.0 HIGH RISK Performed By: #### U SHILA, LIPID, CMP #### [facility] [address] [place] [address] Dr. Constantin Yepez Cholesterol [Mass/Vol] 127 mg/dL Normal <=200 [facility] Comment on above: Performed By: #### U SHILA, LIPID, CMP #### [facility] [address] [address] [address] Constantin Yepez Cholesterol in HDL [Mass/Vol] 39 mg/dL Critically low 40-60 [facility] Comment on above: Performed By: #### U SHILA, LIPID, CMP #### [facility] [address] [address] [address] Constantin Yepez Cholesterol in LDL [Mass/Vol] 65.0 mg/dL Normal [facility] Comment on above: Performed By: #### U SHILA, LIPID, CMP #### [facility] [address] [address] [address] Constantin Yepez Cholesterol.total/Chol esterol in HDL [Mass ratio] 3.3 {ratio} Normal [facility] Comment on above: Performed By: #### U SHILA, LIPID, CMP #### [facility] [address] [address] [address] Constantin Yepez HDL NORMAL > or = 60 mg/dl - LOW CARDIOVASCULAR RISK <40 mg/dl - HIGH CARDIOVASCULAR RISK Normal [facility] Comment on above: Performed By: #### U SHILA, LIPID, CMP #### [facility] [address] [address] [address] Constantin Yepez LDL CALC NORMAL SEE BELOW Normal [facility] Comment on above: Result Comment: <100 mg/dl OPTIMAL 100 - 129 mg/dl NEAR OR ABOVE OPTIMAL 130 - 159 mg/dl BORDERLINE HIGH 160 - 189 mg/dl HIGH >190 mg/dl VERY HIGH Performed By: #### U SHILA, LIPID, CMP #### [facility] [address] [address] [address] Constantin Yepez Triglyceride [Mass/Vol] 115 mg/dL Normal <=150 [facility] Comment on above: Performed By: #### U SHILA, LIPID, CMP #### [facility] [address] [address] [address] Constantin Yepez VLDL CALC 23.0 mg/dL Normal [facility] Comment on above: Performed By: #### U SHILA, LIPID, CMP #### [facility] [address] [address] [address] Constantin Yepez PROF 14(COMP METB)on 022 Albumin [Mass/Vol] 3.4 g/dL Normal 3.4-5.0 [facility] Comment on above: Performed By: #### U SHILA, LIPID, CMP #### [facility] [address] [address] [address] Constantin Yepez Albumin/Globulin [Mass ratio] 1.0 {ratio} Normal [facility] Comment on above: Performed By: #### U SHILA, LIPID, CMP #### [facility] [address] [address] [address] Constantin Yepez ALP [Catalytic activity/Vol] 66 U/L Normal 46-116 [facility] Comment on above: Performed By: #### U SHILA, LIPID, CMP #### [facility] [address] [address] [address] Constantin Yepez ALT [Catalytic activity/Vol] 28 U/L Normal 16-63 [facility] Comment on above: Performed By: #### U SHILA, LIPID, CMP #### [facility] [address] [address] [address] Constantin Yepez Anion gap [Moles/Vol] 11.6 mmol/L Normal [facility] Comment on above: Performed By: #### U SHILA, LIPID, CMP #### [facility] [address] [address] [address] Constantin Yepez AST [Catalytic activity/Vol] 13 U/L Critically low 15-37 [facility] Comment on above: Performed By: #### U SHILA, LIPID, CMP #### [facility] [address] [address] [address] Constantin Yepez Bilirubin [Mass/Vol] 0.5 mg/dL Normal 0.2-1.0 [facility] Comment on above: Performed By: #### U SHILA, LIPID, CMP #### [facility] [address] [address] [address] Constantin Yepez Calcium [Mass/Vol] 8.6 mg/dL Normal 8.5-10.1 [facility] Comment on above: Performed By: #### U SHILA, LIPID, CMP #### [facility] [address] [address] [address] Constantin Yepez Chloride [Moles/Vol] 108 mmol/L Critically high 98-107 [facility] Comment on above: Performed By: #### U SHILA, LIPID, CMP #### [facility] [address] [address] [address] Constantin Yepez CO2 [Moles/Vol] 30.0 mmol/L Normal 21.0-32.0 [facility] Comment on above: Performed By: #### U SHILA, LIPID, CMP #### [facility] [address] [address] [address] Constantin Yepez Creatinine [Mass/Vol] 1.39 mg/dL Critically high 0.70-1.30 [facility] Comment on above: Performed By: #### U SHILA, LIPID, CMP #### [facility] [address] [address] [address] Constantin Yepez EGFR-AF BERMUDIAN >60 Normal >=60 [facility] Comment on above: Performed By: #### U SHILA, LIPID, CMP #### [facility] [address] [address] [address] Constantin Yepez EGFR-NON AF BERMUDIAN 51 mL/min/1.73m2 Critically low >=60 [facility] Comment on above: Performed By: #### U SHILA, LIPID, CMP #### [facility] [address] [address] [address] Constantni Yepez Globulin (S) [Mass/Vol] 3.5 g/dL Normal [facility] Comment on above: Performed By: #### U SHILA, LIPID, CMP #### [facility] [address] [address] [address] Constantin Yepez Glucose [Mass/Vol] 77 mg/dL Normal 74-106 [facility] Comment on above: Performed By: #### U SHILA, LIPID, CMP #### [facility] [address] [address] [address] Constantin Yepez Potassium [Moles/Vol] 3.6 mmol/L Normal 3.5-5.1 [facility] Comment on above: Performed By: #### U SHILA, LIPID, CMP #### [facility] [address] [place] [address] Dr. Constantin Yepez Protein [Mass/Vol] 6.9 g/dL Normal 6.4-8.2 [facility] Comment on above: Performed By: #### U SHILA, LIPID, CMP #### [facility] [address] [place] [address] Dr. Constantin Yepez Sodium [Moles/Vol] 146 mmol/L Critically high 136-145 [facility] Comment on above: Performed By: #### U SHILA, LIPID, CMP #### [facility] [address] [place] [address] Dr. Constantin Yepez Urea nitrogen [Mass/Vol] 24.0 mg/dL Critically high 7.0-18.0 [facility] Comment on above: Performed By: #### U SHILA, LIPID, CMP #### [facility] [address] [place] [address] Dr. Constantin Yepez Urea nitrogen/Creatinine [Mass ratio] 17.3 mg/mg Normal [facility] Comment on above: Performed By: #### U SHILA, LIPID, CMP #### [facility] [address] [place] [address] Dr. Constantin Yepez URIC ACID SERUMon 04-08-2022 Urate [Mass/Vol] 6.3 mg/dL Normal 3.5-7.2 [facility] Comment on above: Performed By: #### U SHILA, LIPID, CMP #### [facility] [address] [place] [address] Dr. Constantin Yepez PROF CHEM 8 (BAS METB)on Anion gap [Moles/Vol] 7.6 mmol/L Normal [facility] Comment on above: Performed By: #### B MP #### [facility] [address] [place] [address] Dr. Constantin Yepez Calcium [Mass/Vol] 8.3 mg/dL Critically low 8.5-10.1 [facility] Comment on above: Performed By: #### B MP #### [facility] [address] [address] [address] Constantin Yepez Chloride [Moles/Vol] 107 mmol/L Normal 98-107 [facility] Comment on above: Performed By: #### B MP #### [facility] [address] [address] [address] Constantin Yepez CO2 [Moles/Vol] 31.9 mmol/L Normal 21.0-32.0 [facility] Comment on above: Performed By: #### B MP #### [facility] [address] [address] [address] Constantin Yepez Creatinine [Mass/Vol] 1.62 mg/dL Critically high 0.70-1.30 [facility] Comment on above: Performed By: #### B MP #### [facility] [address] [address] [address] Constantin Yepez EGFR-AF BERMUDIAN 52 mL/min/1.73m2 Critically low >=60 [facility] Comment on above: Performed By: #### B MP #### [facility] [address] [address] [address] Constantin Yepez EGFR-NON AF BERMUDIAN 43 mL/min/1.73m2 Critically low >=60 [facility] Comment on above: Performed By: #### B MP #### [facility] [address] [address] [address] Constantin Yepez Glucose [Mass/Vol] 97 mg/dL Normal 74-106 [facility] Comment on above: Performed By: #### B MP #### [facility] [address] [address] [address] Constantin Yepez Potassium [Moles/Vol] 4.5 mmol/L Normal 3.5-5.1 [facility] Comment on above: Performed By: #### B MP #### [facility] [address] [address] [address] Constantin Yepez Sodium [Moles/Vol] 142 mmol/L Normal 136-145 [facility] Comment on above: Performed By: #### B MP #### [facility] [address] [address] [address] Constantin Yepez Urea nitrogen [Mass/Vol] 30.0 mg/dL Critically high 7.0-18.0 [facility] Comment on above: Performed By: #### B MP #### [facility] [address] [address] [address] Constantin Yepez Urea nitrogen/Creatinine [Mass ratio] 18.5 mg/mg Normal [facility] Comment on above: Performed By: #### B MP #### [facility] [address] [address] [address] Constantin Yepez Arterial Blood Gaseson 06-04 Cr Test PASS Normal [facility] Comment on above: Performed By: #### A BG #### [facility] [address] [place] [address] Android Programmer: Stevan Kerns MD Body Temp. 37.0 Normal [facility] Comment on above: Performed By: #### A BG #### [facility] [address] [place] [address] Android Programmer: Stevan Kerns MD HCO3 (Bld) [Moles/Vol] 29.7 mmol/L High 22-26 [facility] Comment on above: Performed By: #### A BG #### [facility] [address] [place] [address] Android Programmer: Stevan Kerns MD O2 Device/Flow/% O2 Mask Normal [facility] Comment on above: Performed By: #### A BG #### [facility] [address] [place] [address] Android Programmer: Stevan Kerns MD Oxygen (Bld) [Partial pressure] 87.4 mm[Hg] Normal 80-100 [facility] Comment on above: Performed By: #### A BG #### [facility] [address] [place] [address] Android Programmer: Stevan Kerns MD Oxygen saturation in Blood 96.1 % Normal 95-98 [facility] Comment on above: Performed By: #### A BG #### [facility] [address] [place] [address] Android Programmer: Stevan Kerns MD pCO2 55.2 mmHg High 35-45 [facility] Comment on above: Performed By: #### A BG #### [facility] [address] [place], [place] [id number] Android Programmer: Stevan Kerns MD pH (Bld) 7.348 [pH] Low 7.35-7.45 [facility] Comment on above: Performed By: #### A BG #### [facility] [address] [place] [address] Android Programmer: Stevan Kerns MD Positive Base Excess 2.6 mmol/L High 0.0-2.0 [facility] Comment on above: Performed By: #### A BG #### [facility] [address] [place], [place] [phone] Android Programmer: Stevan Kerns MD Pt. Position SUPINE Normal [facility] Comment on above: Performed By: #### A BG #### [facility] [address] [place], [place] [id number] Android Programmer: Stevan Kerns MD Site Drawn Left Brachial Artery Normal [facility] Comment on above: Performed By: #### A BG #### [facility] [address] [place], [place] [id number] Android Programmer: Stevan Kerns MD Carboxy Hgb NOT REPORTED Normal 0-5 [facility] Comment on above: Performed By: #### A BG #### [facility] [address] [place], [place] [id number] Android Programmer: Stevan Kerns MD FIO2 NOT REPORTED Normal [facility] Comment on above: Performed By: #### A BG #### [facility] [address] [place], [place] [id number] Android Programmer: Stevan Kerns MD Methemoglobin NOT REPORTED Normal 0.0-1.9 [facility] Comment on above: Performed By: #### A BG #### [facility] [address] [place], [place] [phone] Android Programmer: Stevan Kerns MD Mode NOT REPORTED Normal [facility] Comment on above: Performed By: #### A BG #### [facility] [address] [place], [place] [phone] Android Programmer: Stevan Kerns MD Negative Base Excess NOT REPORTED Normal 0.0-2.0 [facility] Comment on above: Performed By: #### A BG #### [facility] [address] [place] [address] Dr[address] [place], [place] [phone] Android Programmer: Stevan Kerns MD Notification Time NOT REPORTED Normal [facility] Comment on above: Performed By: #### A BG #### [facility] [address] [place], [place] [phone] Android Programmer: Stevan Kerns MD Notification: NOT REPORTED Normal [facility] Comment on above: Performed By: #### A BG #### [facility] [address] [place] [address] Dr. [place], [place] [phone] Android Programmer: Stevan Kerns MD Oxyhemoglobin NOT REPORTED Normal 95.0-98.0 [facility] Comment on above: Performed By: #### A BG #### [facility] [address] [place], [place] [phone] Android Programmer: Stevan Kerns MD pCO2 Adj'd for Temp NOT REPORTED Normal [facility] Comment on above: Performed By: #### A BG #### [facility] [address] [place], [place] [phone] Android Programmer: Stevan Kerns MD PEEP/CPAP NOT REPORTED Normal [facility] Comment on above: Performed By: #### A BG #### [facility] [address] [place] [address] Dr. [place], [place] [id number] Android Programmer: Stevan Kerns MD pH Adjst'd for Temp. NOT REPORTED Normal 7.350-7.450 [facility] Comment on above: Performed By: #### A BG #### [facility] [address] [place], [place] [id number] Android Programmer: Stevan Kerns MD pO2 Adjst'd for Temp NOT REPORTED Normal 80.0-100.0 [facility] Comment on above: Performed By: #### A BG #### [facility] [address] [place] [address] [place]. [place], [place] [id number] Android Programmer: Stevan Kerns MD PSV NOT REPORTED Normal [facility] Comment on above: Performed By: #### A BG #### [facility] [address] [place] [id number] Android Programmer: Stevan Kerns MD Respiratory Rate NOT REPORTED Normal [facility] Comment on above: Performed By: #### A BG #### [address] [place] [id number] Android Programmer: Stevan Kerns MD Set Rate NOT REPORTED Normal [facility] Comment on above: Performed By: #### A BG #### [facility] [address] [place], [place] [id number] Android Programmer: Stevan Kerns MD Text for Respiratory NOT REPORTED Normal [facility] Comment on above: Performed By: #### A BG #### [facility] [address] [place] [address] [place] [address] Android Programmer: Stevan Kerns MD Total Hb NOT REPORTED Normal 12.0-16.0 [facility] Comment on above: Performed By: #### A BG #### [facility] [address] [place] [address] Android Programmer: Stevan Kerns MD Total Rate NOT REPORTED Normal [facility] Comment on above: Performed By: #### A BG #### [facility] [address] [place] [address] Android Programmer: Stevan Kerns MD [place] NOT REPORTED Normal [facility] Comment on above: Performed By: #### A BG #### [facility] [address] [place] [address] Android Programmer: Stevan Kerns MD Blood Gas, Arterialon 2020 Cr Test PASS [facility] Carboxyhemoglobin NOT REPORTED 0 - 5 % [facility] Comment on above: FIO2 NOT REPORTED [facility] HCO3 (Bld) [Moles/Vol] 29.7 mmol/L High 22 - 26 mmol/L [facility] Interpretation and review of laboratory results Abnormal [facility] Methemoglobin NOT REPORTED 0.0 - 1.9 % [facility] alth Mode NOT REPORTED [facility] Negative Base Excess, Art NOT REPORTED 0.0 - 2.0 mmol/L [facility] NOTIFICATION NOT REPORTED [facility] th NOTIFICATION TIME NOT REPORTED [facility] O2 Device/Flow/% O2 Mask [facility] Oxygen saturation in Blood 96.1 % 95 - 98 % [facility] Oxyhemoglobin NOT REPORTED 95.0 - 98.0 % [facility] pCO2, Art, Temp Adj NOT REPORTED [facility] pCO2, Arterial 55.[address] [facility] th Peep/Cpap NOT REPORTED [facility] pH, Art, Temp Adj NOT REPORTED [facility] pH, Arterial 7.348 Low [facility] pO2, Art, Temp Adj NOT REPORTED [facility] pO2, Arterial 87.[address] [facility] Positive Base Excess, Art 2.6 mmol/L High 0.0 - 2.0 mmol/L [facility] PSV NOT REPORTED [facility] Pt Temp 37.0 [facility] Pt. Position SUPINE [facility] Respiratory Rate NOT REPORTED [facility] Sample Site Left Brachial Artery [facility] Set Rate NOT REPORTED [facility] Text for Respiratory NOT REPORTED [facility] Total Hb NOT REPORTED 12.0 - 16.0 g/dl [facility] Total Rate NOT REPORTED [facility] [place] NOT REPORTED [facility] CBC Auto Differentialon 11-2 Absolute Eos # 0.[address] [facility] th Absolute Immature Granulocyte 0.06 [facility] Absolute Lymph # 3.98 High [facility] He alth Absolute [place] # 1.22 High [facility] Hea lth Basophils (Bld) [#/Vol] 0.05 10*3/uL [facility] Basophils/100 WBC (Bld) 0 % 0 - 2 % [facility] Differential Type NOT REPORTED [facility] Eosinophils/100 WBC (Bld) 1 % 1 - 4 % [facility] Hematocrit (Bld) [Volume fraction] 45.3 % 40.7 - 50.3 % [facility] Hemoglobin.gastrointes tinal spec 1 Ql (Stl) 14.7 g/dL 13.0 - 17.0 g/dL [facility] Immature granulocytes/100 WBC (Bld) 0 % 0 [facility] Interpretation and review of laboratory results Abnormal [facility] Lymphocytes/100 WBC (Bld) 25 % 24 - 43 % [facility] MCH (RBC) [Entitic mass] 29.5 pg 25.2 - 33.5 pg [facility] MCHC (RBC) [Mass/Vol] 32.5 g/dL 28.4 - 34.8 g/dL [facility] MCV (RBC) [Entitic vol] 91.0 fL 82.6 - 102.9 fL [facility] Monocytes/100 WBC (Bld) 8 % 3 - 12 % [facility] NRBC Automated 0.0 0.0 per 100 WBC [facility] Platelet distribution width (Bld) [Ratio] 12.6 % 11.8 - 14.4 % [facility] Platelet Estimate NOT REPORTED [facility] Platelet mean volume (Bld) [Entitic vol] 9.3 fL 8.1 - 13.5 fL [facility] Platelets (Bld) [#/Vol] 195 10*3/uL [facility] RBC (Bld) [#/Vol] 4.98 10*6/uL 4.21 - 5.7 7 m/uL [facility] RBC (Bld) [#/Vol] NOT REPORTED [facility] Segmented neutrophils/100 WBC (Bld) 66 % High 36 - 65 % [facility] Segs Absolute 10.[address] [facility] WBC (Bld) [#/Vol] 16.2 10*3/uL High [facility] WBC (Bld) [#/Vol] NOT REPORTED [facility] CBC with Diffon 06-04-2021 Abs. Basophil 0.05 k/uL Normal 0.00-0.20 [facility] Comment on above: Performed By: #### C MPX, TROPI, PT, CDP, MG #### [facility] [address] [place], [place] [phone] Android Programmer: Stevan Kerns MD Abs.Imm.Granulocyte 0.06 k/uL Normal 0.00-0.30 [facility] Comment on above: Performed By: #### C MPX, TROPI, PT, CDP, MG #### [address] [place], [place] [phone] Android Programmer: Stevan Kerns MD Abs.Neutrophil (Seg) 10.73 k/uL High 1.50-8.10 [facility] Comment on above: Performed By: #### C MPX, TROPI, PT, CDP, MG #### [address] [place], [place] [phone] Android Programmer: Stevan Kerns MD Basophils/100 WBC (Bld) 0 % Normal 0-2 [facility] Comment on above: Performed By: #### C MPX, TROPI, PT, CDP, MG #### [address] [place], [place] [phone] Android Programmer: Stevan Kerns MD Eosinophils (Bld) [#/Vol] 0.20 10*3/uL Normal 0.00-0.44 [facility] Comment on above: Performed By: #### C MPX, TROPI, PT, CDP, MG #### [facility] [address] [place], [place] [phone] Android Programmer: Stevan Kerns MD Eosinophils/100 WBC (Bld) 1 % Normal 1-4 [facility] Comment on above: Performed By: #### C MPX, TROPI, PT, CDP, MG #### [address] [place], [facility]83 Android Programmer: Stevan Kerns MD Erythrocyte distribution width (RBC) [Ratio] 12.6 % Normal 11.8-14.4 [facility] Comment on above: Performed By: #### C MPX, TROPI, PT, CDP, MG #### [address] [place], [place] [address] Android Programmer: Stevan Kerns MD Hematocrit (Bld) [Volume fraction] 45.3 % Normal 40.7-50.3 [facility] Comment on above: Performed By: #### C MPX, TROPI, PT, CDP, MG #### [address] [place] [address] Android Programmer: Stevan Kerns MD Hemoglobin (Bld) [Mass/Vol] 14.7 g/dL Normal 13.0-17.0 [facility] Comment on above: Performed By: #### C MPX, TROPI, PT, CDP, MG #### [address] [place], [facility]83 Android Programmer: Stevan Kerns MD Immature granulocytes/100 WBC (Bld) 0 % Normal 0 [facility] Comment on above: Performed By: #### C MPX, TROPI, PT, CDP, MG #### [address] [place], [facility]83 Android Programmer: Stevan Kerns MD Lymphocytes (Bld) [#/Vol] 3.98 10*3/uL High 1.10-3.70 [facility] Comment on above: Performed By: #### C MPX, TROPI, PT, CDP, MG #### [address] [place], [facility]83 Android Programmer: Stevan Kerns MD Lymphocytes/100 WBC (Bld) 25 % Normal 24-43 [facility] Comment on above: Performed By: #### C MPX, TROPI, PT, CDP, MG #### [facility] [address] [place], [facility]83 Android Programmer: Stevan Kerns MD MCH (RBC) [Entitic mass] 29.5 pg Normal 25.2-33.5 [facility] Comment on above: Performed By: #### C MPX, TROPI, PT, CDP, MG #### [facility] [address] [place] [facility]83 Android Programmer: Stevan Kerns MD MCHC (RBC) [Mass/Vol] 32.5 g/dL Normal 28.4-34.8 [facility] Comment on above: Performed By: #### C MPX, TROPI, PT, CDP, MG #### [address] [place], [place] [address] Android Programmer: Stevan Kerns MD MCV (RBC) [Entitic vol] 91.0 fL Normal 82.6-102.9 [facility] Comment on above: Performed By: #### C MPX, TROPI, PT, CDP, MG #### [address] [place], [facility]83 Android Programmer: Stevan Kerns MD Monocytes (Bld) [#/Vol] 1.22 10*3/uL High 0.10-1.20 [facility] Comment on above: Performed By: #### C MPX, TROPI, PT, CDP, MG #### [facility] [address] [place], [facility]83 Android Programmer: Stevan Kerns MD Monocytes/100 WBC (Bld) 8 % Normal 3-12 [facility] Comment on above: Performed By: #### C MPX, TROPI, PT, CDP, MG #### [address] [place], [facility]83 Android Programmer: Stevan Kerns MD Neutrophil (Seg) 66 % High 36-65 [facility] Comment on above: Performed By: #### C MPX, TROPI, PT, CDP, MG #### [facility] [address] [place] [address] Android Programmer: Stevan Kerns MD NRBC Automated 0.0 per 100 WBC Normal 0.0 [facility] Comment on above: Performed By: #### C MPX, TROPI, PT, CDP, MG #### [facility] [address] [place] [address] Android Programmer: Stevan Kerns MD Platelet mean volume (Bld) [Entitic vol] 9.3 fL Normal 8.1-13.5 [facility] Comment on above: Performed By: #### C MPX, TROPI, PT, CDP, MG #### [facility] [address] [place], [place] [phone] Android Programmer: Stevan Kerns MD Platelets (Bld) [#/Vol] 195 10*3/uL Normal 138-453 [facility] Comment on above: Performed By: #### C MPX, TROPI, PT, CDP, MG #### [facility] [address] [place], [place] [phone] Android Programmer: Stevan Kerns MD RBC (Bld) [#/Vol] 4.98 10*6/uL Normal 4.21-5.77 [facility] Comment on above: Performed By: #### C MPX, TROPI, PT, CDP, MG #### [facility] [address] [place] [address] Android Programmer: Stevan Kerns MD WBC (Bld) [#/Vol] 16.2 10*3/uL High 3.5-11.3 [facility] Comment on above: Performed By: #### C MPX, TROPI, PT, CDP, MG #### [facility] [address] [place], [place] [id number] Android Programmer: Stevan Kerns MD Auto Diff Performed NOT REPORTED Normal [facility] Comment on above: Performed By: #### C MPX, TROPI, PT, CDP, MG #### [facility] [address] [place], [place] [phone] Android Programmer: Stevan Kerns MD Platelet Comment NOT REPORTED Normal [facility] Comment on above: Performed By: #### C MPX, TROPI, PT, CDP, MG #### [facility] [address] [place], [place] [phone] Android Programmer: Stevan Kerns MD RBC morphology finding Nom (Bld) NOT REPORTED Normal [facility] Comment on above: Performed By: #### C MPX, TROPI, PT, CDP, MG #### [facility] [address] [place], [place] [phone] Android Programmer: Stevan Kerns MD WBC Morphology NOT REPORTED Normal [facility] Comment on above: Performed By: #### C MPX, TROPI, PT, CDP, MG #### [address] [place], [place] [id number] Android Programmer: Stevan Kerns MD Comp Metabolic Pr/rfx MGon 08-04-2020 AST [Catalytic activity/Vol] 28 U/L Normal <40 [facility] Comment on above: Performed By: #### C MPX, TROPI, PT, CDP, MG #### [facility] [address] [place], [place] [id number] Android Programmer: Stevan Kerns MD Glucose [Mass/Vol] 19 mg/dL Critically low 70-99 [facility] Comment on above: Performed By: #### C MPX, TROPI, PT, CDP, MG #### [facility] [address] [place], [place] [id number] Android Programmer: Stevan Kerns MD Potassium [Moles/Vol] 3.4 mmol/L Low 3.7-5.3 [facility] Comment on above: Performed By: #### C MPX, TROPI, PT, CDP, MG #### [facility] [address] [place] [address] Android Programmer: Stevan Kerns MD (cont.) Normal [facility] Comment on above: Result Comment: Aver age GFR for 60-69 years old: 85 mL/min/1.73sq m Chronic Kidney Disease: <60 mL/min/1.73sq m Kidney failure: <15 mL/min/1.73sq m eGFR calculated using average adult body mass. Additional eGFR calculator available at: http://www.Chug/multiple_crcl_2012.htm Performed By: #### C MPX, TROPI, PT, CDP, MG #### [address] [place] [address] Android Programmer: Stevan Kerns MD Albumin [Mass/Vol] 4.5 g/dL Normal 3.5-5.2 [facility] Comment on above: Performed By: #### C MPX, TROPI, PT, CDP, MG #### [address] [place] [address] Android Programmer: Stevan Kerns MD Albumin/Glob Ratio 1.2 Normal 1.0-2.5 [facility] Comment on above: Performed By: #### C MPX, TROPI, PT, CDP, MG #### [facility] [address] [place] [address] Android Programmer: Stevan Kerns MD Alkaline Phos 98 U/L Normal 40-129 [facility] Comment on above: Performed By: #### C MPX, TROPI, PT, CDP, MG #### [facility] [address] [place] [address] Android Programmer: Stevan Kerns MD ALT [Catalytic activity/Vol] 31 U/L Normal 5-41 [facility] Comment on above: Performed By: #### C MPX, TROPI, PT, CDP, MG #### [facility] [address] [place] [address] Android Programmer: Stevan Kerns MD Anion gap [Moles/Vol] 13 mmol/L Normal 9-17 [facility] Comment on above: Performed By: #### C MPX, TROPI, PT, CDP, MG #### [facility] [address] [place] [address] Android Programmer: Stevan Kerns MD Bilirubin [Mass/Vol] 0.36 mg/dL Normal 0.3-1.2 [facility] Comment on above: Performed By: #### C MPX, TROPI, PT, CDP, MG #### [facility] [address] [place], [place] [phone] Android Programmer: Stevan Kerns MD BUN/CRE Ratio 19 Normal 9-20 [facility] Comment on above: Performed By: #### C MPX, TROPI, PT, CDP, MG #### [facility] [address] [place] [address] Android Programmer: Stevan Kerns MD Calcium [Mass/Vol] 9.4 mg/dL Normal 8.6-10.4 [facility] Comment on above: Performed By: #### C MPX, TROPI, PT, CDP, MG #### [facility] [address] [place] [address] Android Programmer: Stevan Kerns MD Chloride [Moles/Vol] 105 mmol/L Normal 98-107 [facility] Comment on above: Performed By: #### C MPX, TROPI, PT, CDP, MG #### [facility] [address] [place], [place] [phone] Android Programmer: Stevan Kerns MD CO2 [Moles/Vol] 27 mmol/L Normal 20-31 [facility] Comment on above: Performed By: #### C MPX, TROPI, PT, CDP, MG #### [facility] [address] [place] [address] Android Programmer: Stevan Kerns MD Creatinine [Mass/Vol] 1.78 mg/dL High 0.70-1.20 [facility] Comment on above: Performed By: #### C MPX, TROPI, PT, CDP, MG #### [address] [place] [address] Android Programmer: Stevan Kerns MD GFR, Amer 47 mL/min Low >60 [facility] Comment on above: Performed By: #### C MPX, TROPI, PT, CDP, MG #### [address] [place], [place] [phone] Android Programmer: Stevan Kerns MD GFR,non Amer 38 mL/min Low >60 [facility] Comment on above: Performed By: #### C MPX, TROPI, PT, CDP, MG #### [address] [place] [address] Android Programmer: Stevan Kerns MD Protein [Mass/Vol] 8.3 g/dL Normal 6.4-8.3 [facility] Comment on above: Performed By: #### C MPX, TROPI, PT, CDP, MG #### [facility] [address] [place] [address] Android Programmer: Stevan Kerns MD Sodium [Moles/Vol] 145 mmol/L High 135-144 [facility] Comment on above: Performed By: #### C MPX, TROPI, PT, CDP, MG #### [facility] [address] [place] [address] Android Programmer: Stevan Kerns MD Staging: Normal [facility] Comment on above: Result Comment: Stag e 1: Some kidney damage normal GFR Stage 2: Mild kidney damage GFR 60-89 Stage 3: Moderate kidney damage GFR 30-59 Stage 4: Severe kidney damage GFR 15-29 Stage 5: Severe kidney damage GFR <15 ESRD - chronic treatment by dialysis or transplant Performed By: #### C MPX, TROPI, PT, CDP, MG #### [facility] [address] [place] [address] Android Programmer: Stevan Kerns MD Urea nitrogen [Mass/Vol] 34 mg/dL High 8-23 [facility] Comment on above: Performed By: #### C MPX, TROPI, PT, CDP, MG #### [facility] [address] [place] [address] Android Programmer: Stevan Kerns MD Comprehensive Metabolic Pane l w/ Reflex to MGon 06-04-2021 Albumin [Mass/Vol] 4.5 g/dL 3.5 - 5.2 g/dL [facility] Albumin/Globulin [Mass ratio] 1.2 {ratio} [facility] ALP (Bld) [Catalytic activity/Vol] 98 U/L 40 - 129 U/L [facility] ALT [Catalytic activity/Vol] 31 U/L 5 - 41 U/L [facility] Anion gap [Moles/Vol] 13 mmol/L 9 - 17 mmol/L [facility] AST [Catalytic activity/Vol] 28 U/L <40 [facility] Bilirubin [Mass/Vol] 0.36 mg/dL 0.3 - 1 .2 mg/dL [facility] Calcium [Mass/Vol] 9.4 mg/dL 8.6 - 10. 4 mg/dL [facility] Chloride [Moles/Vol] 105 mmol/L 98 - 10 7 mmol/L [facility] CO2 [Moles/Vol] 27 mmol/L 20 - 31 mmol/L [facility] Creatinine [Mass/Vol] 1.78 mg/dL High 0.70 - 1.20 mg/dL [facility] Free PSA/Total PSA [Mass fraction] 8.3 g/dL 6.4 - 8.3 g/dL [facility] GFR 47 mL/min Low >60 [facility] GFR Non- 38 mL/min Low >60 [facility] Glucose [Mass/Vol] 19 mg/dL Critically low 70 - 99 mg/dL [facility] Interpretation and review of laboratory results Abnormal [facility] Potassium [Moles/Vol] 3.4 mmol/L Low 3.7 - 5.3 mmol/L [facility] Sodium [Moles/Vol] 145 mmol/L High 135 - 144 mmol/L [facility] Urea nitrogen (BldV) [Mass/Vol] 34 mg/dL High 8 - 23 mg/dL [facility] Urea nitrogen/Creatinine (Bld) [Mass ratio] 19 [facility] Glucose, Whole Bloodon 06-04 Glucose [Mass/Vol] 125 mg/dL High 74 - 100 mg/dL [facility] Interpretation and review of laboratory results Abnormal [facility] Glucose [Mass/Vol] 134 mg/dL High 74 - 100 mg/dL [facility] Interpretation and review of laboratory results Abnormal [facility] Glucose [Mass/Vol] 97 mg/dL 74 - 100 mg/dL [facility] Glucose [Mass/Vol] 60 mg/dL Low 74 - 100 mg/dL [facility] Interpretation and review of laboratory results Abnormal [facility] Glucose [Mass/Vol] 93 mg/dL 74 - 100 mg/dL [facility] Laboratory - Chemistry and C hemistry - challengeon 06-04-2021 GFR/1.73 sq M.predicted MDRD (S/P/Bld) [Vol rate/Area] [facility] Comment on above: Average GFR for 60-6 9 years old: 85 mL/min/1.73sq m Chronic Kidney Disease: <60 mL/min/1.73sq m Kidney failure: <15 mL/min/1.73sq m eGFR calculated using average adult body mass. Additional eGFR calculator available at: http://www.Ethical Ocean.Pollfish/multiple_crcl_2011.htm Stage 1: Some kidney damage normal GFR Stage 2: Mild kidney damage GFR 60-89 Stage 3: Moderate kidney damage GFR 30-59 Stage 4: Severe kidney damage GFR 15-29 Stage 5: Severe kidney damage GFR <15 ESRD - chronic treatment by dialysis or transplant Lactic Acidon 06-04-2021 Lactate [Moles/Vol] 1.0 mmol/L Normal 0.5-2.2 [facility] Comment on above: Performed By: #### L AC #### [facility] [address] [place] [address] Android Programmer: Stevan Kerns MD Lactate [Moles/Vol] 1 mmol/L 0.5 - 2. 2 mmol/L [facility] Magnesiumon 06-04-2021 Magnesium [Mass/Vol] 1.8 mg/dL Normal 1.6-2.6 [facility] Comment on above: Performed By: #### C MPX, TROPI, PT, CDP, MG #### [facility] [address] [place] [address] Android Programmer: Stevan Kerns MD Magnesium [Mass/Vol] 1.8 mg/dL 1.6 - 2 .6 mg/dL [facility] Microscopic Urinalysison - [facility] Amorphous, UA NOT REPORTED None [facility] lt Bacteria, UA NOT REPORTED None [facility] Casts UA NOT REPORTED /LPF [facility] Crystals, UA NOT REPORTED None /HPF [facility] th Epithelial Cells UA 0 TO 2 [facility] Mucus, UA NOT REPORTED None [facility] Other Observations UA NOT REPORTED NOT REQ. M [facility] RBC, UA 0 TO 2 [facility] Renal Epithelial, UA NOT REPORTED 0 /HPF [facility] Trichomonas, UA NOT REPORTED None [facility] ealth WBC, UA 0 TO 2 [facility] Yeast, UA NOT REPORTED None [facility] POCT glucoseOrdered By: Alesha Gonzalez on 06-04-2021 Glucose [Mass/Vol] 60 mg/dL [facility] Interpretation and review of laboratory results Normal [facility] PTon 06-04-2021 INR Coag (PPP) [Relative time] 0.9 {INR} Normal [facility] Comment on above: Result Comment: Non-therapeutic Range: INR = 0.9-1.2 Therapeutic Range: Moderate Anticoagulant Intensity: INR = 2.0-3.0 High Anticoagulant Intensity: INR = 2.5-3.5 Performed By: #### C MPX, TROPI, PT, CDP, MG #### [facility] [address] [place] [address] Android Programmer: Stevan Kerns MD PT Coag (PPP) [Time] 12.4 s Normal 11.5-14.2 [facility] Comment on above: Performed By: #### C MPX, TROPI, PT, CDP, MG #### [facility] [address] [place] [address] Android Programmer: Stevan Kerns MD Protime-INRon 06-04-2021 INR Coag (Bld) [Relative time] 0.9 {INR} [facility] Comment on above: Non-therapeutic Range: INR = 0.9-1.2 Therapeutic Range: Moderate Anticoagulant Intensity: INR = 2.0-3.0 High Anticoagulant Intensity: INR = 2.5-3.5 PT Coag (PPP) [Time] 12.4 s [facility] Troponinon 06-04-2021 Troponin, High Sens 13 ng/L Normal 0-22 [facility] Comment on above: Result Comment: High Sensitivity Troponin values cannot be compared with other Troponin methodologies. Patients with high levels of Biotin oral intake (i.e >5mg/day) may have falsely decreased Troponin levels. Samples collected within 8 hours of biotin intake may require additional information for diagnosis. Performed By: #### C MPX, TROPI, PT, CDP, MG #### [facility] [address] [place] [address] Android Programmer: Stevan Kerns MD Troponin Interp. NOT REPORTED Normal [facility] Comment on above: Performed By: #### C MPX, TROPI, PT, CDP, MG #### [facility] [address] [place] [address] [place] [address] Android Programmer: Stevan Kerns MD Troponin T NOT REPORTED Normal <0.03 [facility] Comment on above: Performed By: #### C MPX, TROPI, PT, CDP, MG #### [facility] [address] [place] [address] Android Programmer: Stevan Kerns MD Troponin Interp NOT REPORTED [facility] Troponin, High Sensitivity 13 ng/L 0 - 22 ng/L [facility] Comment on above: High Sensitivity Troponin values cannot be compared with other Troponin methodologies. Patients with high levels of Biotin oral intake (i.e >5mg/day) may have falsely decreased Troponin levels. Samples collected within 8 hours of biotin intake may require additional information for diagnosis. [facility] Urinalysis, Routineon 2020 Bilirubin, SemiQt,Ur Negative Normal NEG [facility] Comment on above: Performed By: #### U MICAO, UA #### [facility] [address] [place] [address] Dr. [place], [place] [phone] Android Programmer: Stevan Kerns MD Blood, Urine 1+ Abnormal NEG [facility] Comment on above: Performed By: #### U MICAO, UA #### [facility] [address] [place] [address] Dr. [place], [place] [phone] Android Programmer: Stevan Kerns MD Clarity (U) Clear Normal CLEAR [facility] Comment on above: Performed By: #### U MICAO, UA #### [facility] [address] [place] [address] Dr. [place], [place] [phone] Android Programmer: Stevan Kerns MD Color (U) Yellow Normal YEL [facility] Comment on above: Performed By: #### U MICAO, UA #### [facility] [address] [place], [place] [phone] Android Programmer: Stevan Kerns MD Glucose Ql (U) Negative Normal NEG [facility] Comment on above: Performed By: #### U MICAO, UA #### [facility] [address] [place], [place] [phone] Android Programmer: Stevan Kerns MD Ketones Ql (U) Negative Normal NEG [facility] Comment on above: Performed By: #### U MICAO, UA #### [facility] [address] [place], [place] [phone] Android Programmer: Stevan Kerns MD Leukocyte esterase Test strip Ql (U) Negative Normal NEG [facility] Comment on above: Performed By: #### U MICAO, UA #### [facility] [address] [place] [address] Android Programmer: Stevan Kerns MD Nitrite,Ur Negative Normal NEG [facility] Comment on above: Performed By: #### U MICAO, UA #### [facility] [address] [place], [place] [phone] Android Programmer: Stevan Kerns MD PH,Ur 5.5 Normal 5.0-9.0 [facility] Comment on above: Performed By: #### U MICAO, UA #### [facility] [address] [place] [address] Android Programmer: Stevan Kerns MD Protein Ql (U) 2+ Abnormal NEG [facility] Comment on above: Performed By: #### U MICAO, UA #### [facility] [address] [place] [address] Dr. [place], [place] [phone] Android Programmer: Stevan Kerns MD Spec. [place],Ur >1.030 High 1.010-1.020 [facility] Comment on above: Performed By: #### U MICAO, UA #### [facility] [address] [place], [place] [phone] Android Programmer: Stevan Kerns MD Urobilinogen,Ur Normal Normal NORM [facility] Comment on above: Performed By: #### U MICAO, UA #### [facility] [address] [place], [place] [phone] Android Programmer: Stevan Kerns MD Comment NOT REPORTED Normal [facility] Comment on above: Performed By: #### U MICAO, UA #### [facility] [address] [place] [address] Android Programmer: Stevan Kerns MD Urinalysis, reflex to micros copicon 06-04-2021 Bilirubin Urine Negative NEGATIVE [facility] Color, UA Yellow Yellow [facility] Glucose, Ur Negative NEGATIVE [facility] Interpretation and review of laboratory results Abnormal [facility] Ketones Ql (U) Negative NEGATIVE [facility] Leukocyte esterase Test strip Ql (U) Negative NEGATIVE [facility] Nitrite, Urine Negative NEGATIVE [facility] pH, UA 5.5 [facility] Protein, UA 2+ Abnormal NEGATIVE [facility] Specific [place], UA >1.030 High [facility] Turbidity UA Clear Clear [facility] Urinalysis Comments NOT REPORTED [facility] Urine Hgb 1+ Abnormal NEGATIVE [facility] Urobilinogen, Urine Normal Normal [facility] Urinalysis,Microon 1 ----- Normal [facility] Comment on above: Performed By: #### U MICAO, UA #### [facility] [address] [place] [address] [place] [address] Android Programmer: Stevan Kerns MD Epithelial cells LM Ql (Urine sed) 0 TO [address] Comment on above: Performed By: #### U MICAO, UA #### [facility] [address] [place] [address] [place] [address] Android Programmer: Stevan Kerns MD Urine RBC's 0 TO 2 Normal 0-2 [facility] Comment on above: Performed By: #### U MICAO, UA #### [facility] [address] [place] [address] Android Programmer: Stevan Kerns MD Urine WBC's 0 TO [address] Comment on above: Performed By: #### U MICAO, UA #### [facility] [address] [place] [address] Android Programmer: Stevan Kerns MD Amorphous sediment LM Ql (Urine sed) NOT REPORTED Normal NONE [facility] Comment on above: Performed By: #### U MICAO, UA #### [facility] [address] [place], [place] [phone] Android Programmer: Stevan Kerns MD Bacteria NOT REPORTED Normal NONE [facility] Comment on above: Performed By: #### U MICAO, UA #### [facility] [address] [place], [place] [phone] Android Programmer: Stevan Kerns MD Casts NOT REPORTED Normal [facility] Comment on above: Performed By: #### U MICAO, UA #### [facility] [address] [place], [place] [phone] Android Programmer: Stevan Kerns MD Crystals LM Nom (Urine sed) NOT REPORTED Normal [facility] Comment on above: Performed By: #### U MICAO, UA #### [facility] [address] [place], [place] [phone] Android Programmer: Stevan Kerns MD Epithelial, Renal NOT REPORTED Normal 0 [facility] Comment on above: Performed By: #### U MICAO, UA #### [facility] [address] [place], [place] [phone] Android Programmer: Stevan Kerns MD Mucus Strands NOT REPORTED Normal [facility] Comment on above: Performed By: #### U MICAO, UA #### [facility] [address] [place], [place] [phone] Android Programmer: Stevan Kerns MD Other Observations NOT REPORTED Normal NREQ [facility] Comment on above: Performed By: #### U MICAO, UA #### [facility] [address] [place] [address] Android Programmer: Stevan Kerns MD Trichomonas NOT REPORTED Normal NONE [facility] Comment on above: Performed By: #### U MICAO, UA #### [facility] [address] [place], [place] [phone] Android Programmer: Stevan Kerns MD Yeast NOT REPORTED Normal NONE [facility] Comment on above: Performed By: #### U ANGELINE BAILEY #### [facility] [address] [place] [address] Android Programmer: Stevan Kerns MD ARTERIAL BLOOD GAS W/COOXon 06-15-2019 BASE EXCESS 15 mmol/L High -2-3 [facility] Comment on above: Order Comment: No: D o not add to previous draw Performed By: #### 4 1000, 27549, 04615, 78429 #### [facility] [address] [place] [address], [facility] COHB 2.5 % High 0.0-1.5 [facility] Comment on above: Order Comment: No: D o not add to previous draw Performed By: #### 4 1000, 55749, 28425, 82744 #### [facility] [address] [place] [address], [facility] [employer] RA Normal [facility] Comment on above: Order Comment: No: D o not add to previous draw Performed By: #### 4 1000, 80683, 35265, 68345 #### [facility] [address] [place] [address], [place] HCO3 (Bld) [Moles/Vol] 42 mmol/L Critically high 21-28 [facility] Comment on above: Order Comment: No: D o not add to previous draw Performed By: #### 4 1000, 18411, 30486, 85354 #### [facility] [address] [place] [address], [place] METHB 1.2 % Normal 0.0-1.5 [facility] Comment on above: Order Comment: No: D o not add to previous draw Performed By: #### 4 1000, 97329, 69045, 82037 #### [facility] [address] [place] [address], [place] MODALITY RA Normal [facility] Comment on above: Order Comment: No: D o not add to previous draw Performed By: #### 4 1000, 50394, 72168, 23760 #### [facility] [address] [place] [address], [place] Oxygen (Bld) [Partial pressure] 49 mm[Hg] Critically low 83-108 [facility] Comment on above: Order Comment: No: D o not add to previous draw Performed By: #### 4 1000, 28807, 96328, 69880 #### [facility] [address] [place] [address], [place] Oxygen saturation in Blood 87.3 % Critically low 94.0-97.0 [facility] Comment on above: Order Comment: No: D o not add to previous draw Performed By: #### 4 999, 96556, 03776, 71120 #### [facility] [address] [place] [address], [place] PCO2 60 mmHg Critically high 35-45 [facility] Comment on above: Order Comment: No: D o not add to previous draw Performed By: #### 4 1000, 73286, 95490, 81283 #### [facility] [address] [place] [address], [place] pH (Bld) 7.45 [pH] Normal 7.35-7.45 [facility] Comment on above: Order Comment: No: D o not add to previous draw Performed By: #### 4 1000, 50766, 55702, 89695 #### [facility] [address] [place] [address], [place] THB 14.2 g/dL Normal 12.0-16.3 [facility] Comment on above: Order Comment: No: D o not add to previous draw Performed By: #### 4 1000, 88802, 00064, 58688 #### [facility] [address] [place] [address], [place] BASIC METABOLIC PANELon 12- Calcium [Mass/Vol] 9.0 mg/dL Normal 8.6-10.3 [facility] Comment on above: Order Comment: No: D o not add to previous draw Performed By: #### 4 1000, 57025, 38364, 90253 #### [facility] [address] [place] [address], [place] Chloride [Moles/Vol] 93 mmol/L Low 98-107 [facility] Comment on above: Order Comment: No: D o not add to previous draw Performed By: #### 4 1000, 30895, 12675, 15992 #### [facility] [address] [place] [address], [place] CO2 [Moles/Vol] 36 mmol/L High 21-[address] [facility] Comment on above: Order Comment: No: D o not add to previous draw Performed By: #### 4 1000, 31685, 86184, 28193 #### [facility] [address] [place] [address], [place] Creatinine [Mass/Vol] 1.30 mg/dL Normal 0.70-1.30 [facility] Comment on above: Order Comment: No: D o not add to previous draw Performed By: #### 4 1000, 39390, 84149, 95295 #### [facility] [address] [place] [address], [place] GFR/1.73 sq M predicted among blacks MDRD (S/P/Bld) [Vol rate/Area] mL/min/{1.73_m2} Normal >60 [facility] Comment on above: Order Comment: No: D o not add to previous draw Performed By: #### 4 1000, 34147, 99542, 03203 #### [facility] [address] [place] [address], [place] GFR/1.73 sq M predicted among non-blacks MDRD (S/P/Bld) [Vol rate/Area] 56 ml/min/1.73sq m Abnormal >60 [facility] Comment on above: Order Comment: No: D o not add to previous draw Performed By: #### 4 1000, 88566, 94051, 84489 #### [facility] [address] [place] [address], [facility] Glucose [Mass/Vol] 147 mg/dL High 70-100 [facility] Comment on above: Order Comment: No: D o not add to previous draw Performed By: #### 4 1000, 70986, 35213, 13681 #### [facility] [address] [place] [address], [facility] Potassium [Moles/Vol] 4.2 mmol/L Normal 3.5-5.1 [facility] Comment on above: Order Comment: No: D o not add to previous draw Performed By: #### 4 1000, 07304, 26639, 13644 #### [facility] [address] [place] [address], [place] Sodium [Moles/Vol] 136 mmol/L Normal 136-145 [facility] Comment on above: Order Comment: No: D o not add to previous draw Performed By: #### 4 1000, 88874, 44477, 24780 #### [facility] [address] [place] [address], [place] Urea nitrogen [Mass/Vol] 31 mg/dL High 7-25 [facility] Comment on above: Order Comment: No: D o not add to previous draw Performed By: #### 4 1000, 72554, 08435, 67138 #### [facility] [address] [place] [address], [place] MAGNESIUM BLOODon 06-15-2019 Magnesium [Mass/Vol] 2.0 mg/dL Normal 1.9-2.7 [facility] Comment on above: Order Comment: No: D o not add to previous draw Performed By: #### 4 1000, 37438, 21856, 77766 #### [facility] [address] [place] [address], [place] POC GLUCOSE LABon 06-15-2019 Glucose [Mass/Vol] 156 mg/dL High 70-100 [facility] Comment on above: Performed By: #### 4 1000, 18822, 02475, 39374 #### [facility] [address] [place] [address], [place] Glucose [Mass/Vol] 220 mg/dL High 70-100 [facility] Comment on above: Performed By: #### 4 1000, 31209, 20941, 57084 #### [facility] [address] [place] [address], [place] Glucose [Mass/Vol] 138 mg/dL High 70-100 [facility] Comment on above: Performed By: #### 4 1000, 13234, 71410, 66043 #### [facility] [address] [place] [address], [place] BASIC METABOLIC PANELon Calcium [Mass/Vol] 8.9 mg/dL Normal 8.6-10.3 [facility] Comment on above: Order Comment: No: D o not add to previous draw Performed By: #### 4 999, 47633, 16908, 60076 #### [facility] [address] [place] [address], [place] Chloride [Moles/Vol] 95 mmol/L Low 98-107 [facility] Comment on above: Order Comment: No: D o not add to previous draw Performed By: #### 4 1000, 22365, 32675, 26015 #### [facility] [address] [place] [address], [place] CO2 [Moles/Vol] 35 mmol/L High 21-31 [facility] Comment on above: Order Comment: No: D o not add to previous draw Performed By: #### 4 1000, 08163, 66290, 29425 #### [facility] [address] [place] [address], [place] Creatinine [Mass/Vol] 1.35 mg/dL High 0.70-1.30 [facility] Comment on above: Order Comment: No: D o not add to previous draw Performed By: #### 4 1000, 62203, 66381, 54008 #### [facility] [address] [place] [address], [place] GFR/1.73 sq M predicted among blacks MDRD (S/P/Bld) [Vol rate/Area] mL/min/{1.73_m2} Normal >60 [facility] Comment on above: Order Comment: No: D o not add to previous draw Performed By: #### 4 1000, 02286, 81981, 62070 #### [facility] [address] [place] [address], [facility] GFR/1.73 sq M predicted among non-blacks MDRD (S/P/Bld) [Vol rate/Area] 53 ml/min/1.73sq m Abnormal >60 [facility] Comment on above: Order Comment: No: D o not add to previous draw Performed By: #### 4 1000, 98002, 24899, 37454 #### [facility] [address] [place] [address], [place] Glucose [Mass/Vol] 172 mg/dL High 70-100 [facility] Comment on above: Order Comment: No: D o not add to previous draw Performed By: #### 4 1000, 07977, 05925, 03404 #### [facility] [address] [place] [address], [place] Potassium [Moles/Vol] 4.0 mmol/L Normal 3.5-5.1 [facility] Comment on above: Order Comment: No: D o not add to previous draw Performed By: #### 4 1000, 48950, 64916, 75113 #### [facility] [address] [facility] Sodium [Moles/Vol] 139 mmol/L Normal 136-145 [facility] Comment on above: Order Comment: No: D o not add to previous draw Performed By: #### 4 1000, 16560, 56813, 08645 #### [facility] [address] [facility]. [address] Urea nitrogen [Mass/Vol] 30 mg/dL High 7-25 [facility] Comment on above: Order Comment: No: D o not add to previous draw Performed By: #### 4 1000, 03147, 61994, 69143 #### [facility] [address] [facility]. [address] CBC W/DIFFon 06-14-2019 ABS BASOPHILS 0.0 10*3/uL Normal 0.0-0.2 [facility] Comment on above: Order Comment: No: D o not add to previous draw Performed By: #### 4 999, 01354, 36355, 60154 #### [facility] [address] [facility]. [address] ABS IMM GRANS 0.0 10*3/uL Normal 0.0-0.2 [facility] Comment on above: Order Comment: No: D o not add to previous draw Performed By: #### 4 999, 79037, 88225, 33366 #### [facility] [address] [facility] [place] [address], [facility] ABS NEUTROPHILS 5.7 10*3/uL Normal 1.6-7.6 [facility] Comment on above: Order Comment: No: D o not add to previous draw Performed By: #### 4 1000, 93045, 60269, 57834 #### [facility] [address] [facility] [place] [address], [facility] Basophils/100 WBC (Bld) 0.2 % Normal 0.0-1.0 [facility] Comment on above: Order Comment: No: D o not add to previous draw Performed By: #### 4 1000, 19377, 41773, 28476 #### [facility] [address] [place] [address], [facility] Eosinophils (Bld) [#/Vol] 0.2 10*3/uL Normal 0.0-0.5 [facility] Comment on above: Order Comment: No: D o not add to previous draw Performed By: #### 4 1000, 68834, 06788, 07665 #### [facility] [address] [place] [address], [facility] Eosinophils/100 WBC (Bld) 1.8 % Normal 0.0-6.0 [facility] Comment on above: Order Comment: No: D o not add to previous draw Performed By: #### 4 1000, 17958, 00612, 26141 #### [facility] [address] [place] [address], [facility] Erythrocyte distribution width (RBC) [Ratio] 13.3 % Normal 11.5-15.0 [facility] Comment on above: Order Comment: No: D o not add to previous draw Performed By: #### 4 1000, 94664, 29009, 36277 #### [facility] [address] [place] [address], [facility] Hematocrit (Bld) [Volume fraction] 44.2 % Normal 39.0-50.0 [facility] Comment on above: Order Comment: No: D o not add to previous draw Performed By: #### 4 1000, 02681, 89876, 05298 #### [facility] [address] [place] [id number], [facility] Hemoglobin (Bld) [Mass/Vol] 13.8 g/dL Normal 13.0-17.0 [facility] Comment on above: Order Comment: No: D o not add to previous draw Performed By: #### 4 1000, 62225, 81054, 86559 #### [facility] [address] [place] [address], [facility] IMMATURE GRANS 0.4 % Normal 0.0-1.0 [facility] Comment on above: Order Comment: No: D o not add to previous draw Performed By: #### 4 1000, 38626, 45926, 76930 #### [facility] [address] [place] [address], [facility] Lymphocytes (Bld) [#/Vol] 1.6 10*3/uL Normal 1.2-4.0 [facility] Comment on above: Order Comment: No: D o not add to previous draw Performed By: #### 4 1000, 93642, 50716, 99489 #### [facility] [address] [place] [address], [facility] Lymphocytes/100 WBC (Bld) 19.6 % Low 20.0-45.0 [facility] Comment on above: Order Comment: No: D o not add to previous draw Performed By: #### 4 1000, 47760, 08200, 88642 #### [facility] [address] [place] [address], [facility] MCH (RBC) [Entitic mass] 29.1 pg Normal 27.0-33.0 [facility] Comment on above: Order Comment: No: D o not add to previous draw Performed By: #### 4 1000, 45860, 68778, 53485 #### [facility] [address] [place] [id number], [facility] MCHC (RBC) [Mass/Vol] 31.2 g/dL Low 32.0-35.0 [facility] Comment on above: Order Comment: No: D o not add to previous draw Performed By: #### 4 1000, 15926, 97158, 77137 #### [facility] [address] [place] [id number], [facility] MCV (RBC) [Entitic vol] 93.2 fL Normal 82.0-98.0 [facility] Comment on above: Order Comment: No: D o not add to previous draw Performed By: #### 4 1000, 00600, 84663, 48605 #### [facility] [address] [place] [address], [facility] Monocytes (Bld) [#/Vol] 0.6 10*3/uL Normal 0.1-1.0 [facility] Comment on above: Order Comment: No: D o not add to previous draw Performed By: #### 4 1000, 02344, 88798, 39200 #### [facility] [address] [place] [address], [facility] MONOS 7.7 % Normal 5.0-12.0 [facility] Comment on above: Order Comment: No: D o not add to previous draw Performed By: #### 4 1000, 15819, 14732, 03002 #### [facility] [address] [place] [address], [facility] Neutrophils/100 WBC (Bld) 70.3 % Normal 40.0-72.0 [facility] Comment on above: Order Comment: No: D o not add to previous draw Performed By: #### 4 1000, 56694, 23884, 07568 #### [facility] [address] [place] [address], [facility] Nucleated RBC/100 WBC (Bld) [Ratio] 0 % Normal 0-0 [facility] Comment on above: Order Comment: No: D o not add to previous draw Performed By: #### 4 1000, 85304, 01595, 58374 #### [facility] [address] [place] [address], [facility] PLAT CNT 157 10*3/uL Normal 150-400 [facility] Comment on above: Order Comment: No: D o not add to previous draw Performed By: #### 4 1000, 21179, 16326, 95632 #### [facility] [address] [place] [address], [facility] RBC (Bld) [#/Vol] 4.74 10*6/uL Normal 4.20-5.70 The [facility] Comment on above: Order Comment: No: D o not add to previous draw Performed By: #### 4 1000, 32640, 34323, 27167 #### [facility] [address] [place] [address], [facility] WBC (Bld) [#/Vol] 8.16 10*3/uL Normal 4.00-10.60 The [facility] Comment on above: Order Comment: No: D o not add to previous draw Performed By: #### 4 1000, 95765, 89477, [id number] #### [facility] [address] Cardiovascular Lab Reporton 06-14-2019 Cardiovascular Lab Report [facility] Patient Name: [facility] Mackenzie Doherty MR #: [id number] Department of Physician: Reema Taveras MD Division of Service Date: 06/14/2019 Cardiology Birthdate: 1955 Adult Cardiovascular Room #: 3CD [id number] Services [place] [address] Cardiovascular Laboratory Report RIVET FLUNKY: Dr. Carolyn Montero, pulmonologist. INDICATIONS: This is a 63-year-old man with past medical history of diastolic congestive heart failure, obstructive sleep apnea with obesity hypoventilation syndrome, history of DVT, hypertension, CAD, and diabetes type 2, who was admitted for progressive worsening shortness of breath for the last week. He also had worsening lower extremity edema bilaterally for the last week. His echocardiogram showed EF of 65% with that use right ventricular systolic function and right ventricular systolic pressure increased from 32 mmHg to 40 mmHg. He was brought to the cardiac catheterization lab for further evaluation. PROCEDURE IN DETAIL: An informed consent was obtained from the patient after explaining the benefits and risks of the procedure, which include, but not limited to infection, bleeding, pneumothorax, tamponade, hemothorax and a chest tube placement. The patient was also notified that a pulmonologist will be assisting during the course of the procedure. The patient was brought to the cardiac catheterization lab. His right side of the neck was prepped and draped in the usual sterile fashion. Time-out was obtained to verify the patient as well as the type and site of the procedure. We used Versed and fentanyl for sedation. We gave 5 mL of lidocaine to anesthetize the area of the right internal jugular vein. Then under ultrasound guidance, we obtained an access to the right internal jugular vein. Then, we inserted a 6-Montserratian x 11 cm glide sheath and advanced it. Under fluoroscopy guidance, then, we inserted the Delgado catheter into the wedge position. We calculated the pulmonary capillary wedge pressure, pulmonary artery pressure, right ventricular pressure and right atrial pressure. We also obtained a sample from the pulmonary artery to calculate the cardiac output and cardiac index by the Yeison principle. The patient tolerated the procedure very well. We achieved optimal hemostasis by local pressure. He was transferred back to medical floor in stable condition. RIGHT HEART CATHETERIZATION FINDINGS: 1. Pulmonary capillary wedge pressure of 21/22 with mean 17 mmHg. 2. PA pressure 62/23 with PA mean pressure of 38 mmHg. 3. Right ventricle pressure 60/10 with the right ventricular end-diastolic pressure of 17 mmHg. 4. Right atrial pressure 12 mmHg, PAO2 saturation 67%, AO2 saturation 98%. 5. Cardiac output 5.84 L/minute and cardiac index 2.29 L/minute per meter square. 6. Pulmonary vascular disease resistance 288 dynes. RECOMMENDATION: After reviewing the right heart hemodynamics. It seems the patient had mildly elevated wedge pressure at 17 mmHg and uagm-ky-yneplvep elevation in his right-sided pressures. His RA pressure is better than 60% of his wedge pressure. His pulmonary vascular resistance is also mildly elevated suggestive of mild pulmonary hypertension. The patient will need a little more diuresis to lower his wedge pressure as well as the optimization of his COPD, obstructive sleep apnea and obesity hypoventilation syndrome. Consult team was updated about these findings. Electronically Signed by: Reema Taveras MD 06/15/2019 11:57 A Reema Taveras MD Date Dict: 06/14/2019/12:36 P/Reema Taveras MD Date Trans: 06/14/2019 01:05 P/mmo [id number] cc: Keith EatonOKristin [address] [facility] [address] Normal [facility] MAGNESIUM BLOODon 06-14-2019 Magnesium [Mass/Vol] 2.0 mg/dL Normal 1.9-2.7 [facility] Comment on above: Order Comment: No: D o not add to previous draw Performed By: #### 4 1000, 09140, 88446, 55205 #### [facility] [address] [place] [address], [place] POC GLUCOSE LABon 06-14-2019 Glucose [Mass/Vol] 305 mg/dL High 70-100 [facility] Comment on above: Performed By: #### 4 1000, 70962, 97284, 72805 #### [facility] [address] [place] [address], [place] Glucose [Mass/Vol] 299 mg/dL High 70-100 [facility] Comment on above: Performed By: #### 4 1000, 12744, 60106, 61790 #### [facility] [address] [place] [address], [place] Glucose [Mass/Vol] 177 mg/dL High 70-100 [facility] Comment on above: Performed By: #### 4 1000, 58924, 34543, 36354 #### [facility] [address] [place] [address], [place] Glucose [Mass/Vol] 194 mg/dL High 70-100 [facility] Comment on above: Performed By: #### 4 1000, 10017, 87581, 86813 #### [facility] [address] [place] [address], [place] Glucose [Mass/Vol] 163 mg/dL High 70-100 [facility] Comment on above: Performed By: #### 4 1000, 48832, 50843, 23580 #### [facility] [address] [place] [address], [facility] BASIC METABOLIC PANELon 12-0 Calcium [Mass/Vol] 9.3 mg/dL Normal 8.6-10.3 [facility] Comment on above: Order Comment: No: D o not add to previous draw Performed By: #### 4 1000, 01266, 00047, 54487 #### [facility] [address] [place] [address], [facility] Chloride [Moles/Vol] 98 mmol/L Normal 98-107 [facility] Comment on above: Order Comment: No: D o not add to previous draw Performed By: #### 4 1000, 55703, 48885, 25040 #### [facility] [address] [place] [address], [facility] CO2 [Moles/Vol] 39 mmol/L High 21-31 The [facility] Comment on above: Order Comment: No: D o not add to previous draw Performed By: #### 4 1000, 13843, 77960, 30698 #### [facility] [address] [place] [address], [facility] Creatinine [Mass/Vol] 1.35 mg/dL High 0.70-1.30 [facility] Comment on above: Order Comment: No: D o not add to previous draw Performed By: #### 4 1000, 54730, 48276, 93256 #### [facility] [address] [place] [id number], [facility] GFR/1.73 sq M predicted among blacks MDRD (S/P/Bld) [Vol rate/Area] mL/min/{1.73_m2} Normal >60 [facility] Comment on above: Order Comment: No: D o not add to previous draw Performed By: #### 4 1000, 39960, 84235, 55256 #### [facility] [address] [place] [address], [place] GFR/1.73 sq M predicted among non-blacks MDRD (S/P/Bld) [Vol rate/Area] 53 ml/min/1.73sq m Abnormal >60 The [facility] Comment on above: Order Comment: No: D o not add to previous draw Performed By: #### 4 1000, 80065, 79102, 44829 #### [facility] [address] [place] [address], [place] Glucose [Mass/Vol] 90 mg/dL Normal 70-100 [facility] Comment on above: Order Comment: No: D o not add to previous draw Performed By: #### 4 1000, 47675, 47674, 01193 #### [facility] [address] [place] [address], [place] Potassium [Moles/Vol] 3.8 mmol/L Normal 3.5-5.1 [facility] Comment on above: Order Comment: No: D o not add to previous draw Performed By: #### 4 999, 54327, 13817, 75690 #### [facility] [address] [place] [address], [place] Sodium [Moles/Vol] 143 mmol/L Normal 136-145 [facility] Comment on above: Order Comment: No: D o not add to previous draw Performed By: #### 4 1000, 95803, 77152, 70906 #### [facility] [address] [place] [address], [place] Urea nitrogen [Mass/Vol] 28 mg/dL High 7-25 [facility] Comment on above: Order Comment: No: D o not add to previous draw Performed By: #### 4 1000, 72174, 51698, 79931 #### [facility] [address] [place] [address], [place] CBC W/DIFFon 06-13-2019 ABS BASOPHILS 0.0 10*3/uL Normal 0.0-0.2 The [facility] Comment on above: Order Comment: No: D o not add to previous draw Performed By: #### 4 1000, 59646, 59163, 80834 #### [facility] [address] [place] [address], [facility] ABS IMM GRANS 0.0 10*3/uL Normal 0.0-0.2 [facility] Comment on above: Order Comment: No: D o not add to previous draw Performed By: #### 4 1000, 54586, 40235, 37153 #### [facility] [address] ABS NEUTROPHILS 5.6 10*3/uL Normal 1.6-7.6 The [facility] Comment on above: Order Comment: No: D o not add to previous draw Performed By: #### 4 1000, 16294, 62875, 64737 #### [facility] [address] [facility] [place] [address], [facility] Basophils/100 WBC (Bld) 0.2 % Normal 0.0-1.0 [facility] Comment on above: Order Comment: No: D o not add to previous draw Performed By: #### 4 1000, 21608, 54710, 82105 #### [facility] [address] [facility] [place] [address], [facility] Eosinophils (Bld) [#/Vol] 0.2 10*3/uL Normal 0.0-0.5 [facility] Comment on above: Order Comment: No: D o not add to previous draw Performed By: #### 4 1000, 62660, 53819, 67376 #### [facility] [address] [place] [address], [facility] Eosinophils/100 WBC (Bld) 2.4 % Normal 0.0-6.0 [facility] Comment on above: Order Comment: No: D o not add to previous draw Performed By: #### 4 1000, 59649, 95332, 67577 #### [facility] [address] [place] [address], [facility] Erythrocyte distribution width (RBC) [Ratio] 13.5 % Normal 11.5-15.0 [facility] Comment on above: Order Comment: No: D o not add to previous draw Performed By: #### 4 1000, 19177, 10360, 61327 #### [facility] [address] [place] [address], [facility] Hematocrit (Bld) [Volume fraction] 44.3 % Normal 39.0-50.0 [facility] Comment on above: Order Comment: No: D o not add to previous draw Performed By: #### 4 1000, 76448, 39150, 51433 #### [facility] [address] [place] [address], [facility] Hemoglobin (Bld) [Mass/Vol] 14.0 g/dL Normal 13.0-17.0 [facility] Comment on above: Order Comment: No: D o not add to previous draw Performed By: #### 4 1000, 39340, 06045, 26190 #### [facility] [address] [place] [address], [facility] IMMATURE GRANS 0.4 % Normal 0.0-1.0 [facility] Comment on above: Order Comment: No: D o not add to previous draw Performed By: #### 4 1000, 25251, 08870, 37907 #### [facility] [address] [place] [address], [place] Lymphocytes (Bld) [#/Vol] 1.6 10*3/uL Normal 1.2-4.0 [facility] Comment on above: Order Comment: No: D o not add to previous draw Performed By: #### 4 1000, 28274, 65891, 44426 #### [facility] [address] Lymphocytes/100 WBC (Bld) 19.7 % Low 20.0-45.0 [facility] Comment on above: Order Comment: No: D o not add to previous draw Performed By: #### 4 1000, 95837, 54114, 77150 #### [facility] [address] [place] [address], [facility] MCH (RBC) [Entitic mass] 29.3 pg Normal 27.0-33.0 [facility] Comment on above: Order Comment: No: D o not add to previous draw Performed By: #### 4 1000, 15128, 36716, 11658 #### [facility] [address] [place] [address], [facility] MCHC (RBC) [Mass/Vol] 31.6 g/dL Low 32.0-35.0 [facility] Comment on above: Order Comment: No: D o not add to previous draw Performed By: #### 4 1000, 77026, 25077, 97279 #### [facility] [address] [place] [address], [facility] MCV (RBC) [Entitic vol] 92.7 fL Normal 82.0-98.0 [facility] Comment on above: Order Comment: No: D o not add to previous draw Performed By: #### 4 1000, 77837, 81110, 95808 #### [facility] [address] [facility] [place] [address], [facility] Monocytes (Bld) [#/Vol] 0.6 10*3/uL Normal 0.1-1.0 [facility] Comment on above: Order Comment: No: D o not add to previous draw Performed By: #### 4 1000, 39375, 44952, 63935 #### [facility] [address] [place] [address], [facility] MONOS 7.8 % Normal 5.0-12.0 [facility] Comment on above: Order Comment: No: D o not add to previous draw Performed By: #### 4 1000, 46444, 29413, 51922 #### [facility] [address] [place] [address], [place] Neutrophils/100 WBC (Bld) 69.5 % Normal 40.0-72.0 [facility] Comment on above: Order Comment: No: D o not add to previous draw Performed By: #### 4 1000, 28093, 63417, 45832 #### [facility] [address] [place] [address], [place] Nucleated RBC/100 WBC (Bld) [Ratio] 0 % Normal 0-0 [facility] Comment on above: Order Comment: No: D o not add to previous draw Performed By: #### 4 1000, 13718, 78975, 93278 #### [facility] [address] [place] [id number], [place] PLAT CNT 179 10*3/uL Normal 150-400 [facility] Comment on above: Order Comment: No: D o not add to previous draw Performed By: #### 4 1000, 82818, 98385, 65710 #### [facility] [address] [place] [address], [facility] RBC (Bld) [#/Vol] 4.78 10*6/uL Normal 4.20-5.70 The [facility] Comment on above: Order Comment: No: D o not add to previous draw Performed By: #### 4 1000, 77147, 29952, 47479 #### [facility] [address] [place] [address], [place] WBC (Bld) [#/Vol] 8.04 10*3/uL Normal 4.00-10.60 The [facility] Comment on above: Order Comment: No: D o not add to previous draw Performed By: #### 4 1000, 94446, 99271, 00720 #### [facility] [address] [place] [address], [place] HEMOGLOBIN A1Con 06-13-2019 HbA1c (Bld) [Mass fraction] 8.1 % High 4.0-6.0 [facility] Comment on above: Order Comment: No: D o not add to previous draw Performed By: #### 4 1000, 37292, 75270, 91734 #### [facility] [address] [place] [address], [facility] HbA1c (Bld) [Mass fraction] 186 mg/dL High 70-126 [facility] Comment on above: Order Comment: No: D o not add to previous draw Performed By: #### 4 1000, 18593, 18075, 79662 #### [facility] [address] [place] [id number], [facility] MAGNESIUM BLOODon 06-13-2019 Magnesium [Mass/Vol] 2.2 mg/dL Normal 1.9-2.7 [facility] Comment on above: Order Comment: No: D o not add to previous draw Performed By: #### 4 1000, 88159, 19501, 74575 #### [facility] [address] [place] [address], [facility] PHOSPHORUS BLOODon 9 Phosphate [Mass/Vol] 3.7 mg/dL Normal 2.5-5.0 [facility] Comment on above: Order Comment: No: D o not add to previous draw Performed By: #### 4 1000, 11099, 96814, 11608 #### [facility] [address] [place] [address], [place] POC GLUCOSE LABon 06-13-2019 Glucose [Mass/Vol] 156 mg/dL High 70-100 [facility] Comment on above: Performed By: #### 4 1000, 57364, 23237, 00068 #### [facility] [address] [place] [address], [place] Glucose [Mass/Vol] 90 mg/dL Normal 70-100 [facility] Comment on above: Performed By: #### 4 1000, 72247, 97776, 06164 #### [facility] [address] [place] [address], [place] Glucose [Mass/Vol] 220 mg/dL High 70-100 The [facility] Comment on above: Performed By: #### 4 1000, 44553, 54630, 91733 #### [facility] [address] [place] [address], [facility] BASIC METABOLIC PANELon 12-0 Calcium [Mass/Vol] 8.7 mg/dL Normal 8.6-10.3 [facility] Comment on above: Order Comment: If no t done in ED No: Do not add to previous draw Performed By: #### 8 5123 #### [facility] [address] [place] [address], [facility] Chloride [Moles/Vol] 95 mmol/L Low 98-107 [facility] Comment on above: Order Comment: If no t done in ED No: Do not add to previous draw Performed By: #### 8 5123 #### [facility] [address] [place] [address], [facility] CO2 [Moles/Vol] 36 mmol/L High 21-31 The [facility] Comment on above: Order Comment: If no t done in ED No: Do not add to previous draw Performed By: #### 8 5123 #### [facility] [address] [place] [address], [facility] Creatinine [Mass/Vol] 1.28 mg/dL Normal 0.70-1.30 [facility] Comment on above: Order Comment: If no t done in ED No: Do not add to previous draw Performed By: #### 8 5123 #### [facility] [address] [place] [address], [place] GFR/1.73 sq M predicted among blacks MDRD (S/P/Bld) [Vol rate/Area] mL/min/{1.73_m2} Normal >60 [facility] Comment on above: Order Comment: If no t done in ED No: Do not add to previous draw Performed By: #### 8 5123 #### [facility] [address] [place] [address], [place] GFR/1.73 sq M predicted among non-blacks MDRD (S/P/Bld) [Vol rate/Area] 57 ml/min/1.73sq m Abnormal >60 [facility] Comment on above: Order Comment: If no t done in ED No: Do not add to previous draw Performed By: #### 8 5123 #### [facility] [address] [place] [address], [place] Glucose [Mass/Vol] 83 mg/dL Normal 70-100 [facility] Comment on above: Order Comment: If no t done in ED No: Do not add to previous draw Performed By: #### 8 5123 #### [facility] [address] [place] [address], [place] Potassium [Moles/Vol] 3.7 mmol/L Normal 3.5-5.1 [facility] Comment on above: Order Comment: If no t done in ED No: Do not add to previous draw Performed By: #### 8 5123 #### [facility] [address] [place] [address], [place] Sodium [Moles/Vol] 140 mmol/L Normal 136-145 [facility] Comment on above: Order Comment: If no t done in ED No: Do not add to previous draw Performed By: #### 8 5123 #### [facility] [address] [place] [address], [place] Urea nitrogen [Mass/Vol] 30 mg/dL High 7-25 [facility] Comment on above: Order Comment: If no t done in ED No: Do not add to previous draw Performed By: #### 8 5123 #### [facility] [address] CBC COMPLETE BLOOD COUNTon 1 08-13-2018 Erythrocyte distribution width (RBC) [Ratio] 13.4 % Normal 11.5-15.0 [facility] Comment on above: Order Comment: If no t done in ED No: Do not add to previous draw Performed By: #### 8 5123 #### [facility] [address] [place] [address], [facility] Hematocrit (Bld) [Volume fraction] 42.2 % Normal 39.0-50.0 [facility] Comment on above: Order Comment: If no t done in ED No: Do not add to previous draw Performed By: #### 8 5123 #### [facility] [address] Hemoglobin (Bld) [Mass/Vol] 12.9 g/dL Low 13.0-17.0 [facility] Comment on above: Order Comment: If no t done in ED No: Do not add to previous draw Performed By: #### 8 5123 #### [facility] [address] [place] [address], [facility] MCH (RBC) [Entitic mass] 28.8 pg Normal 27.0-33.0 [facility] Comment on above: Order Comment: If no t done in ED No: Do not add to previous draw Performed By: #### 8 5123 #### [facility] [address] [place] [address], [facility] MCHC (RBC) [Mass/Vol] 30.6 g/dL Low 32.0-35.0 [facility] Comment on above: Order Comment: If no t done in ED No: Do not add to previous draw Performed By: #### 8 5123 #### [facility] [address] [place] [address], [facility] MCV (RBC) [Entitic vol] 94.2 fL Normal 82.0-98.0 [facility] Comment on above: Order Comment: If no t done in ED No: Do not add to previous draw Performed By: #### 8 5123 #### [facility] [address] [place] [address], [facility] Nucleated RBC/100 WBC (Bld) [Ratio] 0 % Normal 0-0 [facility] Comment on above: Order Comment: If no t done in ED No: Do not add to previous draw Performed By: #### 8 5123 #### [facility] [address] [place] [address], [facility] PLAT CNT 159 10*3/uL Normal 150-400 [facility] Comment on above: Order Comment: If no t done in ED No: Do not add to previous draw Performed By: #### 8 5123 #### [facility] [address] [place] [address], [facility] RBC (Bld) [#/Vol] 4.48 10*6/uL Normal 4.20-5.70 The [facility] Comment on above: Order Comment: If no t done in ED No: Do not add to previous draw Performed By: #### 8 5123 #### [facility] [address] [facility] [place] [address], [facility] WBC (Bld) [#/Vol] 8.80 10*3/uL Normal 4.00-10.60 The [facility] Comment on above: Order Comment: If no t done in ED No: Do not add to previous draw Performed By: #### 8 5123 #### [facility] [address] [place] [address], [facility] MAGNESIUM BLOODon 06-12-2019 Magnesium [Mass/Vol] 1.8 mg/dL Low 1.9-2.7 [facility] Comment on above: Order Comment: If no t done in ED No: Do not add to previous draw Performed By: #### 8 5123 #### [facility] [address] [place] [address], [facility] PHOSPHORUS BLOODon 9 Phosphate [Mass/Vol] 3.9 mg/dL Normal 2.5-5.0 [facility] Comment on above: Order Comment: If no t done in ED No: Do not add to previous draw Performed By: #### 8 5123 #### [facility] [address] [place] [address], [place] POC GLUCOSE LABon 06-12-2019 Glucose [Mass/Vol] 323 mg/dL High 70-100 The [facility] Comment on above: Performed By: #### 8 5123 #### [facility] [address] [place] [address], [place] Glucose [Mass/Vol] 284 mg/dL High 70-100 [facility] Comment on above: Performed By: #### 8 5123 #### [facility] [address] [place] [address], [place] Glucose [Mass/Vol] 243 mg/dL High 70-100 [facility] Comment on above: Performed By: #### 8 5123 #### [facility] [address] [place] [address], [place] Glucose [Mass/Vol] 82 mg/dL Normal 70-100 The [facility] Comment on above: Performed By: #### 8 5123 #### [facility] [address] [place] [address], [place] ARTERIAL BLOOD GAS WITH ICAo n 06-11-2019 BASE EXCESS 13 mmol/L High -2-3 The [facility] Comment on above: Order Comment: RESUL TS CHECKED AND CALLED. ACCURATELY READ BACK BY ARNULFO MOSER RN Performed By: #### 8 4511 #### [facility] [address] [place] [address], [place] [employer] NASAL CANNULA Normal The [facility] Comment on above: Order Comment: RESUL TS CHECKED AND CALLED. ACCURATELY READ BACK BY ARNULFO MOSER RN Performed By: #### 8 4511 #### [facility] [address] [place] [address], [facility] HCO3 (Bld) [Moles/Vol] 41 mmol/L Critically high 21-28 The [facility] Comment on above: Order Comment: RESUL TS CHECKED AND CALLED. ACCURATELY READ BACK BY ARNULFO MOSER RN Performed By: #### 8 4511 #### [facility] [address] [place] [address], [facility] IONIZED CALCIUM 1.10 mmol/L Low 1.13-1.32 The [facility] Comment on above: Order Comment: RESUL TS CHECKED AND CALLED. ACCURATELY READ BACK BY ARNULFO MOSER RN Performed By: #### 8 4511 #### [facility] [address] [place] [address], [facility] LPM 3.0 LPM Normal The [facility] Comment on above: Order Comment: RESUL TS CHECKED AND CALLED. ACCURATELY READ BACK BY ARNULFO MOSER RN Performed By: #### 8 4511 #### [facility] [address] [facility] [address], [facility] Oxygen (Bld) [Partial pressure] 63 mm[Hg] Low 83-108 [facility] Comment on above: Order Comment: RESUL TS CHECKED AND CALLED. ACCURATELY READ BACK BY ARNULFO MOSER RN Performed By: #### 8 4511 #### [facility] [address] [place] [address], [facility] Oxygen saturation in Blood 91.9 % Low 94.0-97.0 The [facility] Comment on above: Order Comment: RESUL TS CHECKED AND CALLED. ACCURATELY READ BACK BY ARNULFO MOSER RN Performed By: #### 8 4511 #### [facility] [address] [place] [address], [facility] PCO2 70 mmHg Critically high 35-45 The [facility] Comment on above: Order Comment: RESUL TS CHECKED AND CALLED. ACCURATELY READ BACK BY ARNULFO MOSER RN Performed By: #### 8 4511 #### [facility] [address] [place] [address], [facility] pH (Bld) 7.38 [pH] Normal 7.35-7.45 The [facility] Comment on above: Order Comment: RESUL TS CHECKED AND CALLED. ACCURATELY READ BACK BY ARNULFO MOSER RN Performed By: #### 8 4511 #### [facility] [address] [place] [address], [facility] BASIC METABOLIC PANELon 12-0 Calcium [Mass/Vol] 8.6 mg/dL Normal 8.6-10.3 [facility] Comment on above: Order Comment: No: D o not add to previous draw Performed By: #### 4 1000, 09121, 17043, 45651 #### [facility] [address] [place] [address], [place] Chloride [Moles/Vol] 97 mmol/L Low 98-107 The [facility] Comment on above: Order Comment: No: D o not add to previous draw Performed By: #### 4 1000, 98178, 94461, 17071 #### [facility] [address] [place] [address], [place] CO2 [Moles/Vol] 40 mmol/L High 21-31 The [facility] Comment on above: Order Comment: No: D o not add to previous draw Performed By: #### 4 1000, 45415, 74112, 26616 #### [facility] [address] [place] [address], [place] Creatinine [Mass/Vol] 1.62 mg/dL High 0.70-1.30 The [facility] Comment on above: Order Comment: No: D o not add to previous draw Performed By: #### 4 1000, 30957, 74271, 41214 #### [facility] [address] [place] [address], [place] GFR/1.73 sq M predicted among blacks MDRD (S/P/Bld) [Vol rate/Area] 52 ml/min/1.73sq m Abnormal >60 The [facility] Comment on above: Order Comment: No: D o not add to previous draw Performed By: #### 4 1000, 57718, 28216, 12141 #### [facility] [address] [place] [address], [place] GFR/1.73 sq M predicted among non-blacks MDRD (S/P/Bld) [Vol rate/Area] 43 ml/min/1.73sq m Abnormal >60 The [facility] Comment on above: Order Comment: No: D o not add to previous draw Performed By: #### 4 1000, 09591, 56526, 32162 #### [facility] [address] [place] [address], [place] Glucose [Mass/Vol] 82 mg/dL Normal 70-100 The [facility] Comment on above: Order Comment: No: D o not add to previous draw Performed By: #### 4 1000, 25143, 76882, 14063 #### [facility] [address] [place] [address], [place] Potassium [Moles/Vol] 4.0 mmol/L Normal 3.5-5.1 The [facility] Comment on above: Order Comment: No: D o not add to previous draw Performed By: #### 4 1000, 00338, 89004, 41776 #### [facility] [address] [place] [address], [place] Sodium [Moles/Vol] 141 mmol/L Normal 136-145 The [facility] Comment on above: Order Comment: No: D o not add to previous draw Performed By: #### 4 1000, 50174, 12967, 78656 #### [facility] [address] [place] [address], [place] Urea nitrogen [Mass/Vol] 33 mg/dL High 7-25 The [facility] Comment on above: Order Comment: No: D o not add to previous draw Performed By: #### 4 1000, 34940, 17495, 84723 #### [facility] [address] BNP (B-TYPE NATRIURETIC PEPT TANG)on 06-11-2019 Natriuretic peptide B (Bld) [Mass/Vol] 21 pg/mL Normal 0-100 The [facility] Comment on above: Order Comment: If no t done in ED No: Do not add to previous draw Result Comment: Give n the appropriate clinical setting a BNP result of >100 pg/mL indicates congestive heart failure. Performed By: #### 8 5123 #### [facility] [address] CBC W/DIFFon 06-11-2019 ABS BASOPHILS 0.0 10*3/uL Normal 0.0-0.2 The [facility] Comment on above: Order Comment: No: D o not add to previous draw Performed By: #### 5 0103 #### [facility] [address] ABS IMM GRANS 0.0 10*3/uL Normal 0.0-0.2 The [facility] Comment on above: Order Comment: No: D o not add to previous draw Performed By: #### 5 0103 #### [facility] [address] ABS NEUTROPHILS 7.1 10*3/uL Normal 1.6-7.6 The [facility] Comment on above: Order Comment: No: D o not add to previous draw Performed By: #### 5 0103 #### [facility] [address] Basophils/100 WBC (Bld) 0.3 % Normal 0.0-1.0 The [facility] Comment on above: Order Comment: No: D o not add to previous draw Performed By: #### 5 0103 #### [facility] [address] [place] [address], [facility] Eosinophils (Bld) [#/Vol] 0.2 10*3/uL Normal 0.0-0.5 The [facility] Comment on above: Order Comment: No: D o not add to previous draw Performed By: #### 5 0103 #### [facility] [address] [place] [address], [facility] Eosinophils/100 WBC (Bld) 1.8 % Normal 0.0-6.0 The [facility] Comment on above: Order Comment: No: D o not add to previous draw Performed By: #### 5 0103 #### [facility] [address] [place] [address], [facility] Erythrocyte distribution width (RBC) [Ratio] 13.7 % Normal 11.5-15.0 The [facility] Comment on above: Order Comment: No: D o not add to previous draw Performed By: #### 5 0103 #### [facility] [address] [place] [address], [facility] Hematocrit (Bld) [Volume fraction] 43.1 % Normal 39.0-50.0 The [facility] Comment on above: Order Comment: No: D o not add to previous draw Performed By: #### 5 0103 #### [facility] [address] [place] [address], [facility] Hemoglobin (Bld) [Mass/Vol] 12.9 g/dL Low 13.0-17.0 The [facility] Comment on above: Order Comment: No: D o not add to previous draw Performed By: #### 5 0103 #### [facility] [address] [place] [address], [facility] IMMATURE GRANS 0.3 % Normal 0.0-1.0 [facility] Comment on above: Order Comment: No: D o not add to previous draw Performed By: #### 5 0103 #### [facility] [address] [place] [address], [facility] Lymphocytes (Bld) [#/Vol] 1.7 10*3/uL Normal 1.2-4.0 The [facility] Comment on above: Order Comment: No: D o not add to previous draw Performed By: #### 5 3 #### [facility] [address] [place] [address], [facility] Lymphocytes/100 WBC (Bld) 17.6 % Low 20.0-45.0 The [facility] Comment on above: Order Comment: No: D o not add to previous draw Performed By: #### 5 102 #### [facility] [address] [place] [address], [facility] MCH (RBC) [Entitic mass] 28.6 pg Normal 27.0-33.0 The [facility] Comment on above: Order Comment: No: D o not add to previous draw Performed By: #### 5 3 #### [facility] [address] [place] [address], [facility] MCHC (RBC) [Mass/Vol] 29.9 g/dL Low 32.0-35.0 The [facility] Comment on above: Order Comment: No: D o not add to previous draw Performed By: #### 102 #### [facility] [address] [place] [address], [facility] MCV (RBC) [Entitic vol] 95.6 fL Normal 82.0-98.0 The [facility] Comment on above: Order Comment: No: D o not add to previous draw Performed By: #### 5 3 #### [facility] [address] [place] [address], [facility] Monocytes (Bld) [#/Vol] 0.7 10*3/uL Normal 0.1-1.0 The [facility] Comment on above: Order Comment: No: D o not add to previous draw Performed By: #### 5 0103 #### [facility] [address] [place] [address], [place] MONOS 6.9 % Normal 5.0-12.0 The [facility] Comment on above: Order Comment: No: D o not add to previous draw Performed By: #### 5 0103 #### [facility] [address] [place] [address], [place] Neutrophils/100 WBC (Bld) 73.1 % High 40.0-72.0 The [facility] Comment on above: Order Comment: No: D o not add to previous draw Performed By: #### 5 0103 #### [facility] [address] [place] [address], [place] Nucleated RBC/100 WBC (Bld) [Ratio] 0 % Normal 0-0 The [facility] Comment on above: Order Comment: No: D o not add to previous draw Performed By: #### 5 0103 #### [facility] [address] [place] [address], [place] PLAT CNT 157 10*3/uL Normal 150-400 The [facility] Comment on above: Order Comment: No: D o not add to previous draw Performed By: #### 5 0103 #### [facility] [address] [place] [address], [place] RBC (Bld) [#/Vol] 4.51 10*6/uL Normal 4.20-5.70 The [facility] Comment on above: Order Comment: No: D o not add to previous draw Performed By: #### 5 0103 #### [facility] [address] [place] [address], [place] WBC (Bld) [#/Vol] 9.68 10*3/uL Normal 4.00-10.60 The [facility] Comment on above: Order Comment: No: D o not add to previous draw Performed By: #### 5 0103 #### [facility] [address] [place], [place] [address] and Physicalon 06-11 History and Physical MR#: [id number] [facility] Pt. Name: Mackenzie Dumont Admitted: 06/11/2019 Date of : 1955 Attending Physician: Cynthia Miguel M.D. Room #: [id number] Discharge Date: HISTORY AND PHYSICAL CHIEF COMPLAINT: Shortness of breath. HISTORY OF PRESENT ILLNESS: Mr. Peterson is a 63-year-old male with a past medical history of diastolic congestive heart failure, obstructive sleep apnea, obesity hypoventilation syndrome, history of DVT, hypertension, CAD, and diabetes mellitus type 2, who was transferred from [facility] for progressively worsening shortness of breath for the last week. The patient also has been complaining of worsening bilateral lower extremity edema for the last week. The patient states that he has been compliant with his diuretics. The patient takes Lasix 40 mg daily. The patient complains of worsening shortness of breath and chest pressure when he lays down flat. The patient has a history of obstructive sleep apnea, but is not compliant with his CPAP machine. No fever, chills, cough, abdominal pain, nausea, vomiting, diarrhea, weakness, or numbness. On presentation to [facility], the patient was in respiratory distress. The patient was placed on a CPAP machine. ABG showed a pH of 7.27 and an elevated pCO2 of 78. His breathing status improved on the BiPAP machine. REVIEW OF SYMPTOMS: All 14 review of symptoms are negative except that is mentioned in the history of present illness. ALLERGIES: No known allergies. MEDICATIONS: Medications were reviewed and reconciled. PAST MEDICAL HISTORY: 1. Diastolic congestive heart failure. 2. Obstructive sleep apnea. 3. Obesity hypoventilation syndrome. 4. History of DVT. 5. History of hypertension. 6. CAD status post stenting in 2005 and 2010. 7. Diabetes mellitus type 2. PAST SURGICAL HISTORY: 1. Left knee replacement. 2. Bilateral carpal tunnel release. 3. Right shoulder surgery. SOCIAL HISTORY: The patient is never a smoker. The patient drinks alcohol socially. The patient denies illicit drug use. FAMILY HISTORY: Father is and from heart attack. Mother is and had dementia and congestive heart failure. PHYSICAL EXAMINATION: VITAL SIGNS: Blood pressure 152/72, pulse 100, temperature 98.5, respirations 16, oxygen saturation 98% on BiPAP, heart rate 90. BMI 47.8. GENERAL: The patient is in mild acute respiratory distress. The patient is on 3 L of oxygen via nasal cannula saturating above 95%. EYES: Pupils are reactive to light. LUNGS: Diminished breath sounds bilaterally. CARDIOVASCULAR: Regular rate and rhythm. Normal S1/S2. No murmurs, rubs, or gallops. ABDOMEN: Soft, nontender, nondistended. EXTREMITIES: 2 to 3+ bilateral lower extremity edema. SKIN: Warm and dry to touch. LABORATORY RESULTS: BMP: Sodium 139, potassium 4.4, chloride 100, CO2 35.7, glucose 203, BUN 31.0, creatinine 2.24, anion gap 7.7. ABG showed pH of 7.273, pCO2 78.5, pO2 195, bicarbonate 35.4 on non-rebreather mask. Complete blood count: WBC 10.1, hemoglobin 13.0, hematocrit 41.8, MCV 95.7, platelet count 175. TEST/RADIOLOGY RESULTS: Chest x-ray showed bilateral pulmonary venous congestion. ASSESSMENT AND PLAN: 1. Acute hypercapnic, hypoxic respiratory failure 2/2 Diastolic CHF exacerbation: ABG on presentation to [facility] revealed a pH of 7.27, pCO2 78.5, pO2 195, bicarbonate 35.4 on a non-rebreather mask with a FiO2 of 100%. Repeat ABG after BiPAP placement revealed a pH of 7.351, pCO2 65.4, pO2 61.1, bicarbonate 35.4 on BiPAP, FiO2 50%, 19/02. Chest x-ray revealed upon bilateral pulmonary venous congestion consistent with pulmonary edema. The patient states that he has been compliant with his Lasix at home. The patient takes Lasix 40 mg daily. We will continue BiPAP 06/11. We will start the patient on Lasix 40 mg IV b.i.d. Salt restriction 2 g daily. Fluid restriction 1.5 L daily. Strict input and output. We will monitor kidney function. We will order an echocardiogram. The patient is currently n.p.o. for possible right heart catheterization. Cardiology has been consulted. 2. Acute kidney injury on chronic kidney disease, stage 3: His acute kidney injury is likely due to cardiorenal syndrome. The patient presented with a creatinine level of 2.24. His baseline is 1.45 to 1.55 per [facility] notes. The patient will be on Lasix 40 mg IV twice a day. We will monitor kidney function. Strict input and output. If his creatinine continues to worsen, we will consult Nephrology. 3. Obstructive sleep apnea: The patient is not compliant with his CPAP at night. The patient has been counseled on the importance of being on CPAP at night. We will place the patient on CPAP at night during hospital stay. 4. Morbid obesity and obesity hypoventilation syndrome: His BMI is 47.8. His morbid obesity is also restricting his pulmonary physiology. The patient will need major lifestyle changes. Weight loss indicated, decrease calories and exercise. 5. Hypertension: We will resume his home antihypertensive medications. 6. Diabetes mellitus type 2: We will continue Humulin 75 units in the morning and 75 units at night. We will start the patient on an insulin sliding scale. We will monitor blood glucose levels before meals and at bedtime. 7. DVT prophylaxis: The patient will be on heparin 5000 units subcu b.i.d. Electronically Signed by: Cynthia Miguel M.D. 06/12/2019 10:41 A Cynthia Miguel M.D. Date Dict: 06/11/2019/11:31 A/Cynthia Miguel M.D. Date Trans: 06/11/2019 12:14 P/mmo [id number] Normal The [facility] MAGNESIUM BLOODon 06-11-2019 Magnesium [Mass/Vol] 1.9 mg/dL Normal 1.9-2.7 The [facility] Comment on above: Order Comment: No: D o not add to previous draw Performed By: #### 4 1000, 25927, 75216, 42128 #### [facility] [address] [place] [address], [facility] PHOSPHORUS BLOODon 9 Phosphate [Mass/Vol] 3.6 mg/dL Normal 2.5-5.0 The [facility] Comment on above: Order Comment: No: D o not add to previous draw Performed By: #### 4 1000, 99414, 82575, 82943 #### [address] [address], [facility] POC GLUCOSE LABon 06-11-2019 Glucose [Mass/Vol] 168 mg/dL High 70-100 [facility] Comment on above: Performed By: #### 8 5123 #### [facility] [address] [place] [address], [facility] Glucose [Mass/Vol] 235 mg/dL High 70-100 The [facility] Comment on above: Performed By: #### 8 5499 #### [facility] [address] [place] [address], [facility] PORTABLE CHEST 1 VIEWon PORTABLE CHEST 1 VIEW [facility] Department of Radiology [address] [place] [address] Patient Name: MACKENZIE DUMONT : 1955 Sex: M Age: Race: White Pt. Location: [id number] Patient Status: I Ordered Date: 06/11/2019 10:25:00 AM Completed Date: 06/11/2019 12:45 PM Requesting Provider: CYNTHIA MIGUEL Attending Provider: SEA VOSS Report Copy To: Signs & Symptoms: Acute Respiratory Distress History: See Comments Comments: R/O CHF Exam: PORTABLE CHEST 1 VIEW PORTABLE CHEST 1 VIEW 06/11/2019 12:45 PM EST SIGNS AND SYMPTOMS: Acute Respiratory Distress TECHNOLOGIST COMMENTS: sob QUESTION FOR THE RADIOLOGIST: R/O CHF PROTOCOL: AP(PA) view was obtained. COMPARISON: November 06, 2015 FINDINGS: Frontal view of the chest revealed mild cardiomegaly and tortious aorta. There is bilateral hilar congestive changes with upper lobe cephalization. No focal infiltrates, effusion or pneumothorax. Metallic clips in the right neck base from prior surgery similar to prior exam. The trachea is in the midline. Bony skeleton appears intact. IMPRESSION: Decompensated CHF. No ely pulmonary edema. Electronically signed by:Carlos Eduardo Loera. Transcribed by: [email or web address], User Resident: Electronically Signed by: CARLOS EDUARDO LOERA @ 06/11/2019 03:03 PM Normal The [facility] Comment on above: Order Comment: R/O C HF TROPONIN-Ion 06-11-2019 Troponin I.cardiac [Mass/Vol] 0.12 ng/mL Critically high 0.00-0.04 [facility] Comment on above: Order Comment: No: D o not add to previous draw Result Comment: REFE RENCE RANGES: 0.00 - 0.04 ng/ml NORMAL 0.05 - 0.50 ng/ml INDETERMINATE > 0.50 ng/ml CONSISTENT WITH AN M.I. Performed By: #### 3 5200 #### [facility] [address] Troponin I.cardiac [Mass/Vol] 0.15 ng/mL Critically high 0.00-0.04 [facility] Comment on above: Result Comment: M-TR OPONIN INITIAL CRITICAL HIGH; RESPUN AND RETESTED M-CRITICAL RESULT(S) REVIEWED, CALLED TO AND READ BACK BY ANDRE FELIX RN AT 1504 REFERENCE RANGES: 0.00 - 0.04 ng/ml NORMAL 0.05 - 0.50 ng/ml INDETERMINATE > 0.50 ng/ml CONSISTENT WITH AN M.I. Performed By: #### 4 1000, 18529, 64777, 06362 #### [facility] [address] [place] [address], [place] Vital Signs Date Time Vital Sign Value Performing Clinician Josue hernandez 06-04-2021 19:26-0500 Body temperature 96.69 [degF] Latoya Moyer DO Work Phone: [facility] 06-04-2021 19:20-0500 Diastolic blood pressure 66 mm[Hg] Latoya Moyer DO Work Phone: [facility] 06-04-2021 19:20-0500 Systolic blood pressure 174 mm[Hg] Latoya Moyer DO Work Phone: [facility] 06-04-2021 19:18-0500 SaO2% (BldA) [Mass fraction] 96 % Latoya Ellis DO Work Phone: [facility] 06-04-2021 19:12-0500 Heart rate 71 /min Latoya Ellis DO Work Phone: [facility] 06-04-2021 19:12-0500 Respiratory rate 16 /min Latoya Ellis DO Work Phone: [facility] Encounters Encounter Date Encounter Type Care Provider Facility Start: 12-11-2023 End: 12-11-2023 ambulatory DEMARCO A BROWN Not Available Start: 09-04-2023 End: 09-04-2023 ambulatory DEMARCO A BROWN Not Available Start: 09-04-2023 End: 09-04-2023 ambulatory DEMARCO A BROWN Not Available Start: 06-26-2023 End: 06-26-2023 ambulatory DEMARCO A BROWN Not Available Start: 06-26-2023 End: 06-26-2023 ambulatory DEMARCO A BROWN Not Available Start: 06-25-2023 End: 06-25-[address] [facility] Start: 12-30-2022 ambulatory [facility] Start: 12-04-2022 End: 12-04-2022 ambulatory [facility] Start: 11-20-2022 End: 11-20-2022 [facility] Start: 04-08-2022 End: 04-09-[address] JOSH PRO Facility:[facility] Start: 10-29-2021 End: 10-30-[address] JOSH PRO Facility:[facility] Start: 06-04-2021 End: 06-05-2021 Emergency department patient visit JOSH PRO [facility] Start: 06-04-2021 End: 06-04-2021 Emergency department patient visit Latoya Moyer DO Work Phone: [facility] ED Comment on above: Hypoglycemia (Primar y Dx) Start: 06-11-2019 End: 06-15-2019 Evaluation and management of inpatient [place] Facility:[facility] Procedures Date Procedure Procedure Detail Performing Clinician Start: 04-08-[address] JOSH PRO Comment on above: Performed By: #### [facility] #### [facility] [address] [place] [address] Dr. Constantin Yepez Start: 06-04-2021 GLUCOSE, WHOLE BLOOD Ch janes Moyer DO Work Phone: Start: 06-04-2021 Urinalysis microscop ic only Sherine Pink PA-C Work Phone: Start: 06-04-2021 Urnls dip stick/tabl et rgnt auto w/o microscopy Sherine Pink PA-C Work Phone: Start: 06-04-2021 End: 06-04-2021 GLUCOSE, WHOLE BLOOD Latoya Chaney Work Phone: Start: 06-04-2021 Lactate [Moles/volum e] in Serum or Plasma Sherine Pink PA-C Work Phone: Start: 06-04-2021 End: 06-04-2021 GLUCOSE, WHOLE BLOOD Latoya Chaney Work Phone: Start: 06-04-2021 BLOOD GAS, ARTERIAL Sherine Pink PA-C Work Phone: Start: 06-04-2021 Ecg routine ecg w/le ast 12 lds w/i&r Sherine Pink PA-C Work Phone: Start: 06-04-2021 End: 06-04-2021 Assay of magnesium Sherine Pink PA-C Work Phone: Start: 06-14-2019 ASSISTANCE WITH RESPIRATORY VENTILATION, <24 HRS, CPAP SEA B VOSS Start: 06-14-2019 MEASURE OF CARDIAC S AMPL \T\ PRESSURE, R HEART, PERC APPROACH REEMA SPARKS PRISCILLAMIChas Start: 06-13-2019 ASSISTANCE WITH RESPIRATORY VENTILATION, <24 HRS, CPAP SEA B VOSS Start: 06-12-2019 ASSISTANCE WITH RESPIRATORY VENTILATION, <24 HRS, CPAP SEA B VOSS Start: 06-11-2019 ASSISTANCE WITH RESPIRATORY VENTILATION, <24 HRS, CPAP CYNTHIA MIGUEL Start: 06-11-2019 MONITORING OF ARTERI AL SATURATION, PERIPHERAL, PERC APPROACH ANAGeovanny MIGUEL Plan of Treatment Date Care Activity Detail Author Start: 12-30-2030 DTaP/Tdap/Td vaccine (2 - Tdap) DTaP/Tdap/Td vaccine (2 - Tdap) [facility] Start: 06-04-2022 Creatinine measurement Creatinine mo nitoring [facility] Start: 06-04-2022 Potassium monitoring Potassium monit oring [facility] Start: 03-07-2021 Influenza vaccination Flu vaccine (# 1) [facility] Start: 2004 Shingles Vaccine (1 of 2) Shingles Vaccine (1 of 2) [facility] Start: 1999 Screening for malign ant neoplasm of colon Colon cancer screen colonoscopy [facility] Start: 1966 COVID-19 Vaccine (1) COVID-19 Vaccin e (1) [facility] Start: 1964 Lipid panel Lipid screen [facility] Start: 1955 Hepatitis C screening Hepatitis C sc reen [facility] EKG 12 Lead EKG 12 Lead ECG STAT 06/04/2021 7:12 PM [facility]: End: 06-04-2021 Glucose [Mass/volume] in Serum or Plasma [facility] Doctor kinetic Work Phone: Comment on above: One Time for 1 Occur rences starting 06/04/2021 until 06/04/2021 Payers Date Payer Category Payer Unknown [id number] 2017 Unknown [id number] 1959 Unknown [id number] 1955 Unknown [id number] 1955 Unknown [id number] [id number] [id number] 1955 Unknown [id number] [id number] [id number] 1955 Unknown [id number] 2.16.84 [id number] 1955 Unknown [id number] 1955 Unknown [id number] [id number] [id number] Medicare [id number] Social History Date Type Detail Facility Start: 06-04-2021 Tobacco smoking stat [facility] Never smoked tobacco [facility] Phone: Start: 06-04-2021 Tobacco use and exposure Smokeless tobacco non-user [facility] Phone: Start: 06-04-2021 Alcohol intake Lifetime non-d arminda (finding) [facility] Phone: Start: 06-04-2021 History SDOH Alcohol Frequency 1 [facility] Phone: Start: 1955 Sex Assigned At Not on file [employer] Phone: Progress note 06-25-2023 Note Date & Type Note Facility 06-25-[address] Cardiology - [facility] Subjective Mackenzie Dumont is a 67 y.o. year old male patient being seen for 6 mo follow up HFpEF, CAD, and PAD. Had echo back in December 2022, and routine labs in Apr. Denies chest pain, SOB, palpitations, and recurrent dizziness. Patient Active Problem List Diagnosis Chronic renal impairment Chronic obstructive lung disease (CMS/HCC) Carpal tunnel syndrome Cardiovascular stress test abnormal Benign essential hypertension Arthritis Dupuytren's disease of palm Disorder of lipid metabolism Diastolic heart failure (CMS/HCC) Degeneration of intervertebral disc Coronary arteriosclerosis Pain in upper limb Obstructive sleep apnea syndrome Obesity Mononeuritis Hypertensive disorder Hyperlipidemia Gastroesophageal reflux disease Edema of lower extremity Dyspnea Ulnar neuropathy Type 2 diabetes mellitus without complication (CMS/HCC) Type 1 diabetes mellitus (CMS/HCC) Shoulder joint pain Positive D-dimer Peripheral venous insufficiency Family History Problem Relation Name Age of Onset Coronary artery disease Brother Other (CABG) Brother Social History Tobacco Use Smoking status: Never Smokeless tobacco: Never Vaping Use Vaping Use: Never used Substance Use Topics Alcohol use: Not Currently Drug use: Never HPI He is a 67-year-old man. He has history of hypertension and diastolic heart failure. He has history of CAD s/p stenting of the LAD and RCA (patent by cath 12/2015). His stress test on 07/08/2017 showed no ischemia. EF 53%. He has CKD3. He was admitted in June 2019 to [facility] with respiratory failure and treated with BiPAP and diuresis. His right heart catheterization showed mildly elevated filling pressures with moderate to severe pulmonary hypertension. His echocardiogram showed preserved left upper systolic function. He is currently maintained on Lasix 40 mg daily. This is reduced from higher dose Lasix due to acute renal insufficiency. Follow-up BMP showed improvement in renal function. At last visit of April 2021 his metoprolol tartrate was increased to 100 mg twice daily. He said his blood pressure stayed elevated so he cut back to 50 mg twice daily. He has been free from chest pain and dyspnea. He still has mild leg edema. He wears compression stockings. Review of Systems Cardiovascular: Positive for leg swelling (intermittent, resolves by morning). Musculoskeletal: Positive for arthritis and joint pain. All other systems reviewed and are negative. Objective Visit Vitals BP 109/59 (BP Location: Left arm, Patient Position: Sitting) Pulse 67 Ht 1.753 m (5' 9 ) Wt (!) 142 kg (312 lb) SpO2 95% BMI 46.07 kg/m??? Smoking Status Never BSA 2.63 m??? Physical Exam Constitutional: Appearance: He is well-developed. He is not ill-appearing. HENT: Head: Normocephalic and atraumatic. Nose: Nose normal. Eyes: General: No scleral icterus. Pupils: Pupils are equal, round, and reactive to light. Neck: Thyroid: No thyromegaly. Vascular: No JVD. Cardiovascular: Rate and Rhythm: Normal rate and regular rhythm. Pulses: Radial pulses are 2+ on the right side and 2+ on the left side. Heart sounds: Normal heart sounds. No murmur heard. No friction rub. No gallop. Pulmonary: Effort: Pulmonary effort is normal. No respiratory distress. Breath sounds: Normal breath sounds. No wheezing or rales. Chest: Chest wall: No tenderness. Abdominal: General: Bowel sounds are normal. There is no distension. Palpations: Abdomen is soft. Tenderness: There is no abdominal tenderness. Musculoskeletal: General: No swelling. Cervical back: Neck supple. Right lower le+ Pitting Edema present. Left lower le+ Pitting Edema present. Skin: General: Skin is warm and dry. Neurological: General: No focal deficit present. Mental Status: He is alert and oriented to person, place, and time. Psychiatric: Mood and Affect: Mood normal. Behavior: Behavior is cooperative. Judgment: Judgment normal. Allergies No Known Allergies Medications Current Outpatient Medications: allopurinol (Zyloprim) 100 mg tablet, Take 1 tablet by mouth in the morning., Disp: , Rfl: amLODIPine (Norvasc) 10 mg tablet, Take 1 tablet (10 mg) by mouth in the morning., Disp: 90 tablet, Rfl: 3 aspirin 81 mg EC tablet, Take 1 tablet every day by oral route., Disp: , Rfl: celecoxib (CeleBREX) 200 mg capsule, 1 capsule every 12 (twelve) hours., Disp: , Rfl: ezetimibe-simvastatin (Vytorin) 10-20 mg tablet, in the morning., Disp: , Rfl: furosemide (Lasix) 40 mg tablet, Take 1 tablet by mouth in the morning., Disp: , Rfl: gabapentin (Neurontin) 600 mg tablet, Take 2 tablets by mouth in the morning and at bedtime., Disp: , Rfl: hydrALAZINE (Apresoline) 100 mg tablet, TAKE 1 TABLET(100 MG) BY MOUTH IN THE MORNING AND AT BEDTIME, Disp: 180 tablet, Rfl: 3 insulin detemir (Levemir U-100 I (more content not included)... [facility] Progress note 12-30-2022 Note Date & Type Note Facility 12-30-2022 Note Patient ID: Mackenzie Dumont is a 67 y.o. male. He has a Dupuytren's contracture of the right ring finger that has progressively worsened. He now has a significant pretendinous cord with about a 45 degree MP contracture and a nearly 30 degree PIP contracture. The finger is getting in his way. We discussed treatment options and he wanted to try a percutaneous fasciotomy. He comes to the clinic today for that purpose. Consent for the procedure was signed prior to the fasciotomy. His right hand is placed on the exam table. Using a Betadine swab, I marked out where I wanted to do the first fasciotomy. This is near the mid palmar crease. The area was prepped with Betadine. Using a TB syringe that area of skin is anesthetized with 1% lidocaine. Care is taken not to go deeper where we might affect the sensation of the digital nerve. Using a 21-gauge needle on a 3 cc syringe, I percutaneously worked across the cord going from superficial to deep. I could feel, and here, the cord as it was being carefully transected. Once I felt that I was through that portion of the cord, the finger was manipulated. The finger gave in the MP contracture improved. I thought there would be benefit from doing a second fasciotomy. That was done closer to the MP flexion crease. Another area was marked and prepped with a Betadine swab. Again, the skin was anesthetized with that to be syringe. A new 21-gauge needle was used to work across the cord. Care was taken to make sure that there were no paresthesias as we started getting deeper. Once I felt that I was through the cord the finger was again manipulated. There was an audible and palpable pop as the cord released. Much of the PIP contracture released. At this point he could pretty well get his hand flat on the table. I had him wash the hand with soap and water in the sink. The sites that we worked on were dressed with bacitracin ointment, a 2 x 2 and 3 inch Todd. I instructed him to apply a little bit of ice to the palm tonight. He left having tolerated the procedure well. [facility] Progress note 12-04-2022 Note Date & Type Note Facility 12-04-2022 Note Orthopedic Surgery Subjective Chief complaint: Chief Complaint Patient presents with Left Hand - Edema, Numbness, Pain, Decreased Range Of Motion Right Hand - Edema, Numbness, Pain, Post-op, Decreased Range Of Motion Mackenzie Dumont is a 67 y.o. year old male presenting for evaluation of Dupuytren's disease involving both of his hands. He has noticed that he has had some dimpling and gradual cord formation on the right hand over a number of years. That hand is getting to the point where he is having difficulty doing some of his required activities, especially grasping. The left hand is not as bad. Thus far has had no treatment for this. Previous Treatments: None Patient History Past Surgical History: Procedure Laterality Date CARDIAC CATHETERIZATION 06/14/2019 CARDIAC CATHETERIZATION 12/07/2015 TOTAL KNEE ARTHROPLASTY Past Medical History: Diagnosis Date CAD (coronary artery disease) Carpal tunnel syndrome CHF (congestive heart failure) ([facility]) CKD (chronic kidney disease) COPD (chronic obstructive pulmonary disease) ([facility]) Diastolic heart failure ([facility]) DM (diabetes mellitus) ([facility]) GERD (gastroesophageal reflux disease) Hyperlipidemia Hypertension IMAN (obstructive sleep apnea) Objective General: Body mass index is 47.26 kg/m???. No acute distress, comfortable Respiratory: Unlabored breathing with normal rate, no cough Cardiovascular: Warm well perfused extremities Psych: Appropriate mood behavior Hand/Wrist Musculoskeletal Exam Inspection Right Right hand/wrist inspection is normal. Left Left hand/wrist inspection is normal. Inspection additional comments: There is Dupuytren's disease involving both hands. He has a large pretendinous cord on the right ring finger causing a contracture that digit. There is thickening and dimples in line with the ring finger on the left. Palpation Right Right hand palpation is normal. Left Left hand palpation is normal. Range of Motion Right Hand Ring distal interphalangeal: full Ring proximal interphalangeal joint range of motion: 25 degree contracture. Ring metacarpal phalangeal joint range of motion: 35 degree contracture. Left Hand Ring distal interphalangeal: full Ring proximal interphalangeal joint range of motion: 15 degree contracture. Ring metacarpal phalangeal joint: full Strength Right Hand Right hand strength is normal. Left Hand Left hand strength is normal. Neurovascular Right Right neurovascular exam is normal. Left Left neurovascular exam is normal. Imaging: None Assessment/Plan Mackenzie Dumont is a 67 y.o. year old male with Dupuytren's disease in both hands with the right ring finger having a significant contracture. PLAN: I discussed Dupuytren's disease as a whole with him today. We discussed treatment options. For the right hand he would like to try a percutaneous fasciotomy. We will set him up for a time when this can be done in clinic. I also discussed doing soft tissue massage on both hands and he can begin that immediately. [facility] Progress note 11-20-2022 Note Date & Type Note Facility 11-20-2022 Note Cardiology Clinic No te Subjective Mackenzie Dumont is a 67 y.o. year old male patient past medical history of coronary artery disease, hypertension, active sleep apnea, chronic hypoxic and hypercapnic respiratory failure, secondary pulmonary. Hypertension and heart failure preserved ejection fraction seen in follow-up. He was last seen by Purnima Whelan CNP in May 2022. Today he reports that he is doing well without concerns. He had an episode of dizziness with bending. He denies chest pain, shortness of breath or palpitations. Lower extremity edema is well controlled with current dose Lasix as well as use of compression stockings. Patient Active Problem List Diagnosis Chronic renal impairment Chronic obstructive lung disease (CMS/HCC) Carpal tunnel syndrome Cardiovascular stress test abnormal Benign essential hypertension Arthritis Dupuytren's disease of palm Disorder of lipid metabolism Diastolic heart failure (CMS/HCC) Degeneration of intervertebral disc Coronary arteriosclerosis Pain in upper limb Obstructive sleep apnea syndrome Obesity Mononeuritis Hypertensive disorder Hyperlipidemia Gastroesophageal reflux disease Edema of lower extremity Dyspnea Ulnar neuropathy Type 2 diabetes mellitus without complication (CMS/HCC) Type 1 diabetes mellitus (CMS/HCC) Shoulder joint pain Positive D-dimer Family History Problem Relation Name Age of Onset Coronary artery disease Brother Other (CABG) Brother Social History Tobacco Use Smoking status: Never Smokeless tobacco: Never Substance Use Topics Alcohol use: Not Currently Review of Systems Cardiovascular: Positive for leg swelling. Negative for chest pain, claudication, dyspnea on exertion, irregular heartbeat, near-syncope, orthopnea, palpitations, paroxysmal nocturnal dyspnea and syncope. Neurological: Positive for dizziness. Objective Visit Vitals BP 136/65 (BP Location: Left arm, Patient Position: Sitting, BP Cuff Size: Adult) Pulse 64 Ht 1.753 m (5' 9 ) Wt (!) 145 kg (320 lb 6.4 oz) SpO2 97% BMI 47.31 kg/m??? Smoking Status Never BSA 2.66 m??? Physical Exam General: Awake, alert, NAD Pulm: Breath sounds clear to ascultation bilaterally with no wheeze, crackles or rhonchi Cards: Regular rate and rhythm, S1, S2. No S3 or S4 gallop. Murmur: none Abd: Soft, Nontender, physiologic bowel sounds are present Extr: Lower extremity edema: None. Skin: warm, dry, well perfused Neuro: A&Ox3, No gross deficits Allergies No Known Allergies Medications Current Outpatient Medications: allopurinol (Zyloprim) 100 mg tablet, Take 1 tablet by mouth in the morning., Disp: , Rfl: amLODIPine (Norvasc) 10 mg tablet, Take 1 tablet (10 mg) by mouth in the morning., Disp: 90 tablet, Rfl: 3 aspirin 81 mg EC tablet, Take 1 tablet every day by oral route., Disp: , Rfl: celecoxib (CeleBREX) 200 mg capsule, 1 capsule every 12 (twelve) hours., Disp: , Rfl: ezetimibe-simvastatin (Vytorin) 10-20 mg tablet, in the morning., Disp: , Rfl: furosemide (Lasix) 40 mg tablet, Take 1 tablet by mouth in the morning., Disp: , Rfl: gabapentin (Neurontin) 600 mg tablet, Take 2 tablets by mouth in the morning and at bedtime., Disp: , Rfl: hydrALAZINE (Apresoline) 100 mg tablet, Take 1 tablet (100 mg) by mouth in the morning and at bedtime., Disp: 180 tablet, Rfl: 3 hydroCHLOROthiazide (HYDRODiuril) 25 mg tablet, in the morning., Disp: , Rfl: insulin detemir (Levemir U-100 Insulin) 100 unit/mL injection, Levemir U-100 Insulin 100 unit/mL subcutaneous solution ADMINISTER 50 UNITS UNDER THE SKIN TWICE DAILY, Disp: , Rfl: insulin glargine-yfgn 100 unit/mL (3 mL) insulin pen, insulin glargine-yfgn (U-100) 100 unit/mL (3 mL) subcutaneous pen ADMINISTER 75 UNITS UNDER THE SKIN TWICE DAILY, Disp: , Rfl: insulin NPH and regular human (HumuLIN 70/30 U-100 Insulin) 100 unit/mL (70-30) injection, Humulin 70/30 U-100 Insulin 100 unit/mL subcutaneous suspension ADMINISTER 75 UNITS UNDER THE SKIN TWICE DAILY, Disp: , Rfl: losartan (Cozaar) 50 mg tablet, Take 1 tablet by mouth in the morning., Disp: , Rfl: metoprolol tartrate (Lopressor) 50 mg tablet, Take 1 tablet by mouth in the morning and at bedtime., Disp: , Rfl: Ozempic 0.25 mg or 0.5 mg (2 mg/3 mL) pen injector, INJECT 0.5 MG UNDER THE SKIN ONCE EVERY WEEK DIRECTED, Disp: , Rfl: Recent Labs 04/08/2022 Sodium 146, potassium 3.6, chloride 106, CO2 30, BUN 24, serum creatinine 1.39 Total cholesterol 127, HDL 39, LDL 65, triglycerides 115 Labs 12/20/2020: Cr 1.47, BUN 23, K 3.8, GFR 48, ALT 36, AST 20, Cholesterol 136, HDL 38, LDL 68, triglycerides 148. BMP 07/21/2019: Potassium 3.8, BUN 30, creatinine 1.64. BMP 06/25/2019: Potassium 4.5, creatinine 1.68, BUN 25 BMP 06/15/2019: BUN 31, creatinine 1.3, potassium 4.2. BMP 07/31/2018: K 3.1, Cr 1.62, BUN 24. BMP on 10/08/2017 showed stable Cr 1.34 and BUN 30 and K 4.3. BMP on 12/18/2016 showed (more content not included)... [facility] Progress note 11-20-2022 Note Date & Type Note Facility 11-20-2022 Note Patient is here toda y for a 6 month follow up. Review of Systems Cardiovascular: Positive for leg swelling. Neurological: Positive for dizziness. All other systems reviewed and are negative. [facility] Hospital Discharge instructions 06-04-2021 Instructions Note Date & Type Note Facility 06-04-2021 Hospital Discharg e instructions Latoya Moyer, - 06/04/2021 Please call your primary care doctor tomorrow regarding additional management of your diabetes and med adjustments. Return to ER if you start to feel ill, monitor your glucose at home with frequent checks. documented in this encounter [facility] Phone: Evaluation note Note Date & Type Note Facility Evaluation note Diagnosis Hypoglycemia- Primary Hypoglycemia, unspecified documented in this encounter [facility] Phone: Summary Purpose Family History No Family History Records FoundNo Family History Records FoundNo Family History Records FoundNo Family History Records FoundNo Family History Records FoundNo Family History Records Found Advance Directives No Advanced Directives Records FoundNo Advanced Directives Records FoundNo Advanced Directives Records FoundNo Advanced Directives Records FoundNo Advanced Directives Records FoundNo Advanced Directives Records Found Hospital Course Note MR#: [id number] [facility] Pt. Name: Mackenzie Dumont Admitted: 06/11/2019 Discharged: 06/15/2019 Date of : 1955 Physician: Sea Voss MD DISCHARGE SUMMARY DISCHARGING PHYSICIAN: Sea Voss MD. CONSULTANTS: 1. Cardiology. 2. Pulmonary. PCP: Josh Pro D.O.. PROCEDURES: Right heart catheterization. DISCHARGE DIAGNOSES: 1. Acute hypercarbic respiratory failure. 2. Chronic hypoxic respiratory failure. 3. Pulmonary hypertension. 4. Obstructive sleep apnea. 5. Obesity hypoventilation syndrome. 6. Acute on chronic right heart failure. 7. Fluid overload. 8. Coronary artery disease, status post percutaneous coronary intervention. 9. Acute kidney injury on chronic kidney disease stage 3. 10. Essential hypertension. 11. Insulin-dependent diabetes mellitus. 12. Morbid obesity. HISTORY OF PRESENT ILLNESS/BRIEF COURSE: A 63-year-old male with past medical history of CAD status post PCI along with diastolic heart failure, sleep apnea, obesity (more content not included)... Additional Source Comments (unrecognized sect ion and content) No Status Records FoundNo Status Records FoundNo Status Records FoundNo Status Records FoundNo Status Records FoundNo Status Records Found INFORMATION SOURCE (unrecogn ized section and content) DATE CREATED AUTHOR 07/07/2019 [facility] DATE CREATED AUTHOR AUTHOR'S ORGANIZ ATION 06/08/2021 [facility] DATE CREATED AUTHOR AUTHOR'S ORGANIZ ATION 04/12/2022 [facility] DATE CREATED AUTHOR AUTHOR'S ORGANIZ ATION 06/26/[address] [facility] DATE CREATED AUTHOR AUTHOR'S ORGANIZ ATION 09/06/2023 [facility] DATE CREATED AUTHOR AUTHOR'S ORGANIZ ATION 12/12/2023 [facility] Reason for Visit (unrecogniz ed section and content) Reason Comments Hypoglycemia Scheduled Active and Recently Administ ered Medications (unrecognized section and content) Medication Order 06/02/2021 06/03/2021 06/04/2021 0.9 % sodium chloride bolus (COMPLETED) 1,000 mL, IntraVENous, at 1,000 mL/hr, Administer over 1 Hours, ONCE, On Fri06/04/21 at 1915, For 1 dose 1934 (New Bag - Prov ider: Cindy Quick RN)2259 (Stopped - Provider: Cindy Quick RN) No Frequency Medication Order 06/02/2021 06/03/2021 06/04/2021 dextrose 50 % solution Starting on Fri06/04/21 at 1905, For 1 dose, Jocelyne, Amber: cabinet override 191 (Due) dextrose 50 % solution Starting on Fri06/04/21 at 1908, For 1 dose, Millsap, Amber: cabinet override 1915 (Due) Care Teams (unrecognized sec tion and content) Hydraulic Repairer Relationship Specialty Start Date End Date Josh Pro MD [address] [place], [place] [id number] PCP - General Family Medicine 06/04/21 FOR RECORDS PERTAINING TO PATIENTS WHO ARE OR HAVE BEEN ENROLLED IN A CHEMICAL DEPENDENCY/SUBSTANCEABUSE PROGRAM, SOME INFORMATION MAY BE OMITTED. This clinical summary was aggregated from multiple sources. Caution should be exercised in using it in the provision of clinical care. This summary normalizes information from multiple sources, and as a consequence, information in this document may materially change the coding, format and clinical context of patient data. In addition, data may be omitted in some cases. CLINICAL DECISIONS SHOULD BE BASED ON THE PRIMARY CLINICAL RECORDS. [employer] provides no warranty or guarantee of the accuracy or completeness of information in this document.
== END 2024-01-12 10:37 | disposition home or self-care (01) ==
LOC: EC 10:37
PROVIDERS: PCP Family Medicine; Visit Provider Orthopaedic Surgery
DX: S82.141D Displaced bicondylar fracture of right tibia, subsequent encounter for closed fracture with routine healing (principal)
CPT/HCPCS: 73560

== ENCOUNTER 2024-02-09 10:13 | Outpatient (OUT) | payer MEDICARE, SELFPAY ==
--- NOTE | 2024-02-09 | XR_ITS ---
The [address] [address] Patient Name: MACKENZIE SKY MRN: [id number] date: 1955 Sex: M Assigned Patient Location: Current Patient Location: Accession/Order Number: [id number] Exam Date: 02/09/2024 10:15 Report Date: 02/11/2024 05:12 At the request of: DOMINGO BOSS Procedure: XR knee RT 2V PROCEDURE: XR knee RT 2V HISTORY: RIGHT KNEE PAIN ; tibial plateau fracture COMPARISON: XR knee right 01/12/2024 FINDINGS: BONES:Stable slightly fracture involving medial intercondylar spine. Increasing density of fracture line within lateral tibial plateau extending below the intercondylar spines and suspected to extend into the lateral aspect the medial tibial plateau. Prominent periarticular degenerative osteophytes. SOFT TISSUES:No visible soft tissue swelling. EFFUSION:Small joint effusion. OTHER: Negative. XR/XR knee RT 2V IMPRESSION: 1. Stable alignment and ongoing bone healing of tibial plateau fractures. 2. Marked degenerative joint disease. Electronically authenticated by: DOMINGO LADD Date: 02/11/2024 05:12
== END 2024-02-09 10:14 | disposition home or self-care (01) ==
LOC: EC 10:13
PROVIDERS: Visit Provider Orthopaedic Surgery
DX: S82.141D Displaced bicondylar fracture of right tibia, subsequent encounter for closed fracture with routine healing (principal)
CPT/HCPCS: 73560

== ENCOUNTER 2024-04-12 09:46 | Outpatient (OUT) | payer MEDICARE, SELFPAY ==
--- NOTE | 2024-04-12 | XR_ITS ---
The [address] [address] Patient Name: MACKENZIE SKY MRN: [id number] date: 1955 Sex: M Assigned Patient Location: Current Patient Location: Accession/Order Number: [id number] Exam Date: 04/12/2024 09:55 Report Date: 04/12/2024 16:00 At the request of: DOMINGO BOSS Procedure: XR knee RT 2V PROCEDURE: XR knee RT 2V COMPARISON: 02/09/2024 HISTORY: RIGHT KNEE PAIN FINDINGS: BONES:Previously identified tibial plateau fractures are less evident with interval increase in sclerosis. No change in alignment or angulation. Moderate tricompartmental osteoarthropathy with marginal osteophyte formation. Moderate narrowing of the medial joint space SOFT TISSUES:Negative. No visible soft tissue swelling. EFFUSION:None visible. OTHER: Negative. XR/XR knee RT 2V IMPRESSION: Stable healing tibial plateau fractures Moderate osteoarthritis Electronically authenticated by: JULIANN MOTLEY Date: 04/12/2024 16:00
== END 2024-04-12 09:47 | disposition home or self-care (01) ==
LOC: EC 09:46
PROVIDERS: Visit Provider Orthopaedic Surgery
DX: S82.141D Displaced bicondylar fracture of right tibia, subsequent encounter for closed fracture with routine healing (principal)
CPT/HCPCS: 73560

== ENCOUNTER 2024-11-24 09:59 | Outpatient (OUT) | payer MEDICARE, SELFPAY ==
--- OUTSIDE RECORDS SUMMARY | 2024-01-12 06:50 | XMS_ITS ---
Author Organization [facility] Address [address] [place] [address] Care Team Providers Care Photo Printer Name Role Phone Heena Valentine Unavailable [phone] REASON FOR VISIT Right tibial plateau fx Encounters Encounter Location Date Provider Diagnosis [facility] Office [address] [facility] [place] [address] [place] [address] 01/12/2024 Heena Jordanland Closed fracture of right [...] Name Order Date SCC- KNEE 2VIEW RIGHT [id number] 01/12/2024 Next Appt Details Follow Up: 4 Weeks, Reason: Progress Notes * MACKENZIE SKY RDOB:1955 (68 yo M)Acc No.[id number]:01/12/2024 Patient: Ge MACKENZIE TORRES Provider: MADELEINE Londono :1955 A ge:68 Y S ex:Male Date:01/12/2024 Address:[address] [place] [address] [address] [id number] Subjective: * Chief Complaints: * 1 . [...] plateau with routine healing, subsequent encounter - S82.994D (Primary) Plan: * Treatment: 2. O thers [...] 01/12/2024 Generated for Terry pittman/Faxing/eTransmitting on: 0 11/24/2024 10:01 AM EDT History and Physical Notes * HPI (History of Present Illness) Category Sub-Category Detail Notes Category Not es General Follow Up Information Patient returns to [facility] office for follow-up of his right tibial [...]
--- OUTSIDE RECORDS SUMMARY | 2024-02-09 06:20 | XMS_ITS ---
Author Organization [facility] Address [address] [place] [address] Care Team Providers Care Technician [employer]iconductor Development Name Role Phone Julian Oneill Unavailable [phone] Allergies No Known Allergies REASON FOR VISIT [...] 02/09/2024 Encounters Encounter Location Date Provider Diagnosis [facility] Office [address] [place] [address] [place] [address] 02/09/2024 Julian Oneill Closed fracture of right [...] Name Order Date SCC- KNEE 2VIEW RIGHT [id number] 02/09/2024 Next Appt Details Follow Up: 2 Months, Reason: Progress Notes * MACKENZIE SKY RDOB:1955 (68 yo M)Acc No.[id number]:02/09/2024 Patient: MACKENZIE LEWIS Provider: Geovanny Oneill MD :1955 A ge:68 Y S ex:Male Date:02/09/2024 Address:[address] [place], [place] [id number] Subjective: * Chief Complaints: * R ight knee tibial plat fracture cehck * [facility] Follow Up Information: Patient presents today [...] plateau with routine healing, subsequent encounter - S81.157G (Primary) Plan: * Treatment: 2. O thers [...] 02/09/2024 Generated for Terry pittman/Tracey/Cucaitting on: 0 11/24/2024 10:01 AM EDT History [...]
--- OUTSIDE RECORDS SUMMARY | 2024-04-12 06:00 | XMS_ITS ---
Author Organization [facility] Address [address] [place] [address] Care Team Providers Care Fish Hatchery Superintendent Name Role Phone Heena Valentine Unavailable [phone] REASON FOR VISIT 2 MONTH F/U RT KNEE TIB PLAT FX CARE Encounters Encounter Location Date Provider Diagnosis [facility] Office [address] [facility] [place] [address] 04/12/2024 Heena Valentine Closed fracture of right tibial plateau with routine healing, subsequent encounter S82.141D Assessments Encounter Date Diagnosis (ICD Code) Assessment Notes Treatment Notes Treatment Clinical Notes Section Notes 04/12/2024 Closed fracture of right tibial plateau with routine healing, subsequent encounter (ICD-10 - S82.141D) 04/12/2024 Other Patient is now a little over 6 months out from his injury and still having some intermittent tingling to his lateral lower leg. We will continue to monitor this as this could be from the injury or from possible lumbar radiculopathy. We will see patient back in 3 months as fracture line is still visible on x-ray today. Patient will call sooner if he is experiencing new issues or increased pain. Plan Of Treatment Treatment Notes Assessment Notes Other Patient is now a lit tle over 6 months out from his injury and still having some intermittent tingling to his lateral lower leg. We will continue to monitor this as this could be from the injury or from possible lumbar radiculopathy. We will see patient back in 3 months as fracture line is still visible on x-ray today. Patient will call sooner if he is experiencing new issues or increased pain. Pending Test Test Name Order Date SCC- KNEE 2VIEW RIGHT [id number] 04/12/2024 Next Appt Details Follow Up: prn, Reason: Progress Notes * MACKENZIE SKY RDOB:1955 (68 yo M)Acc No.[id number]:04/12/2024 Patient: MACKENZIE LEWIS Provider: MADELEINE Londono :1955 A ge:68 Y S ex:Male Date:04/12/2024 Address:[address] [place], [place] [id number] Subjective: * Chief Complaints: * 1 . 2 MONTH F/U RT KNEE TIB PLAT FX CARE. * HPI: G eneral Follow Up Information: Patient returns to the office today for recheck of his right lateral tibial plateau fracture. Patient is doing well and has been ambulating without a cane without issue. He is still having some tingling to the lateral side of his lower leg that goes from the knee to just above the ankle. This is intermittent. * Medical History: Objective: * Vitals: * Examination: G eneral examination: O n exam patient is in no distress, age-appropriate, alert and oriented x 3. On inspection knee is without effusion, skin is intact, no erythema, no warmth to touch. Nontender with palpation of the lateral joint line. Anterior/posterior and varus/valgus stress testing are negative for instability or pain. Grossly distally neurovascularly intact. . X -ray Imaging Studies: 2 view x-rays of the right knee were taken in office today and reviewed and interpreted by myself as a stable healing lateral tibial plateau fracture. Medial joint space narrowing noted. Assessment: * Assessment: 1. C losed fracture of right tibial plateau with routine healing, subsequent encounter - S82.141D (Primary) Plan: * Treatment: 2. O thers Notes: Patient is now a little over 6 months out from his injury and still having some intermittent tingling to his lateral lower leg. We will continue to monitor this as this could be from the injury or from possible lumbar radiculopathy. We will see patient back in 3 months as fracture line is still visible on x-ray today. Patient will call sooner if he is experiencing new issues or increased pain. * Follow Up: p rn Forms: * * Sign off status: Completed true * Provider: MADELEINE Londono Date: 1 Generated for Terry pittman/Tracey/Destiny on: 0 11/24/2024 10:03 AM EDT History and Physical Notes * HPI (History of Present Illness) Category Sub-Category Detail Notes Category Not es General Follow Up Information Patient returns to t he office today for recheck of his right lateral tibial plateau fracture. Patient is doing well and has been ambulating without a cane without issue. He is still having some tingling to the lateral side of his lower leg that goes from the knee to just above the ankle. This is intermittent. Examination Category Sub-Category Detail Notes Category Not es General examination On exam patient is in no distress, age-appropriate, alert and oriented x 3. On inspection knee is without effusion, skin is intact, no erythema, no warmth to touch. Nontender with palpation of the lateral joint line. Anterior/posterior and varus/valgus stress testing are negative for instability or pain. Grossly distally neurovascularly intact. X-ray Imaging Studies 2 view x-rays of the right knee were taken in office today and reviewed and interpreted by myself as a stable healing lateral tibial plateau fracture. Medial joint space narrowing noted.
--- OUTSIDE RECORDS SUMMARY | 2024-08-16 10:28 | XMS_ITS ---
Author Organization [facility] in [place] Address [address] [place] [address] Care Team Providers Care Hardness Inspector Name Role Phone Josh Talavera Primary Care Provider Jv De Santiago Unavailable [phone] REASON FOR VISIT PAP Compliance Encounters Encounter Location Date Provider Diagnosis [facility] [place] [address] [place] [address] 08/16/2024 Jv De Santiago Plan Of Treatment Next Appt Details Provider Name:Josh pittman, 12/23/2024 09:00:00 AM, [address] [place], [address], Provider Name:Jv De Santiago, 08/16/2025 10:00:00 AM, [address] [place], [address], Progress Notes * Nicholas SKY RDOB:1955 (69 yo M)Acc No.[id number]:08/16/2024 Patient: Ge Nicholas TORRES :1955 A ge:69 Y S ex:Male Address:[address] [place] [address] [address], [place], [address] * true * Date: Generated for Terry pittman/Tracey/eTransmitting on: 0 11/24/2024 10:02 AM EDT
--- OUTSIDE RECORDS SUMMARY | 2024-08-18 06:00 | XMS_ITS ---
Author Organization The [facility] in [place] Address [address] [place] [address] Care Team Providers Care Nurse Auditor Name Role Phone Ilan Josh Primary Care Provider Jv De Santiago [phone] Allergies No Known Allergies REASON FOR VISIT [...] Status Risk Notes Problem Chronic respiratory failure with hypoxia (J96.11) Active confirmed Vital Signs Temperature 97.0 degrees Fahrenheit 08/18/19 25 Blood pressure systolic 138 mm Hg 08/18/19 25 Blood pressure diastolic 69 mm Hg 025 Heart Rate 55 /min 08/18/2024 Respiratory Rate 18 /min 08/18/2024 Height 69 in 08/18/2024 Weight 299.0 lbs 08/18/2024 BMI 44.15 kg/m2 08/18/2024 Oximetry 95 % 08/18/2024 Encounters Encounter Location Date Provider Diagnosis Pulmonary Medicine [address] [address] 08/18/2024 Jv Herrmann IMAN (obstructive sle ep apnea) G47.33 ; Obesity hypoventilation syndrome E66.2 ; Chronic respiratory failure with hypoxia J96.11 ; Chronic respiratory failure with hypercapnia J96.12 and Morbid (severe) obesity due to excess calories E66.01 Assessments Encounter Date Diagnosis (ICD Code) Assessment Notes Treatment Notes Treatment Clinical Notes Section Notes 08/18/2024 IMAN (obstructive sleep apnea) (ICD-10 - G47.33) Wqeb-fb-yems encounter performed with the patient to document continued need for PAP therapy. -DME: [facility] -PS12/12/2015; Initial AHI: 55 -Last PAP titration 07/14/2019: BiPAP @ 14/23bzT7L -Compliance was reviewed from 07/19/2024 - 08/17/2024 -Total days used: 2930 (97%) -Total of all days >4 hours [...] bedtime and with any naps. -Note: This swly-zl-gnhl visit comes with my authorization that the patient's DME may request to renew, reorder, and/or replace tubing, supplies, mask, and/or PAP device (if applicable). 08/18/2024 Obesity hypoventilation syndrome (ICD-10 - E66.2) Treated with BiPAP. Complinance is great as above. 08/18/2024 Chronic respiratory failure with hypoxia (ICD-10 - J96.11) Kweo-tz-wupk encounter performed with the patient to document [...] Notes Assessment Notes IMAN (obstructive sleep apnea) Zkqy-qe-dzor encounter performed with the patient to document continued need for PAP therapy. -DME: [facility] -PS12/12/2015; Initial AHI: 55 -Last PAP titration 07/14/2019: BiPAP @ 14/72tbM0Q -Compliance was reviewed from 07/19/2024 - 08/17/2024 [...] bedtime and with any naps. -Note: This vxnb-dp-ucku visit comes with my authorization that the patient's DME may request to renew, reorder, and/or replace tubing, supplies, mask, and/or PAP device (if applicable). Obesity hypoventilation syndrome Treated with BiPAP. Complinance is great as above. Chronic respiratory failure with hypoxia Hxmj-uo-zxuk encounter performed with the patient to document [...] Name:Josh pittman, 12/23/2024 09:00:00 AM, [address] [place], [address], Provider Name:Jv De Santiago, 08/16/2025 10:00:00 AM, [address] [place], [address], Progress Notes * Nicholas SKY RDOB:1955 (69 yo M)Acc No.[id number]:08/18/2024 Follow Up Patient: Nicholas LEWIS Provider: Laquita De Santiago DO :1955 A ge:69 Y S ex:Male Date:08/18/2024 Address:[address] Pcp:Josh Talavera Check In:09:50 AM Ernestock O [...] residual AHI is 0.6. MA Intake Comments:. [place] Sleepiness Scale C harjeet of dozing while [...] . [facility] the [facility]. 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 Modified On:04/24/2023 Status:confirmed E11.42 Diabetic polyneuropa thy associated with type 2 diabetes mellitus Modified On:04/24/2023 Status:confirmed E66.01 Morbid (severe) obes ity due to excess calories Modified On:08/20/2023 Status:confirmed E78.00 Pure hypercholestero lemia Modified On:2022 Status:confirmed G47.33 IMAN (obstructive sle ep apnea) Modified On:08/20/2023U Status:confirmed G89.29 Other chronic pain Modified On:04/15/2022 Status:confirmed I10 Essential (primary) hypertension Modified On:04/24/2023U Status:confirmed M1A.9XX0 Chronic gout without tophus, unspecified cause, unspecified site Modified On:11/16/2022 Status:confirmed M47.816 Lumbar spondylosis Modified On:11/16/2022U Status:confirmed M72.0 Dupuytren's contract ure of both hands Modified On:11/16/2022U Status:confirmed N18.31 Chronic kidney disea se, stage 3a Modified On:04/24/2023 Status:confirmed Z79.4 halfway (current) use of insulin Modified On:04/24/2023 Status:confirmed E11.649 Type 2 diabetes onel itus with hypoglycemia without coma Modified On:04/24/2023 Status:confirmed I77.810 Thoracic aortic ecta bertha Modified On:10/29/2023U Status:confirmed N18.32 Chronic kidney disea se, stage 3b Modified On:10/29/2023 Status:confirmed E11.3553 Type 2 diabetes onel itus with stable proliferative diabetic retinopathy, bilateral Modified On:10/29/2023 Status:confirmed I50.32 Chronic diastolic (c ongestive) heart failure Modified On:10/29/2023 Status:confirmed G62.9 Neuropathy Modified On:11/04/2023U Status:confirmed G47.30 Sleep apnea Modified On:11/04/2023U Status:confirmed I10 Hypertension Modified On:11/04/2023U Status:confirmed E11.9 DM2 (diabetes [facility], type 2) Modified On:11/04/2023 Status:confirmed Z68.41 Body mass index [BMI ] 40.0-44.9, adult Modified On:11/30/2023 Status:confirmed K21.9 Gastro-esophageal re flux disease without esophagitis Modified On:11/30/2023 Status:confirmed J96.11 Chronic respiratory failure with hypoxia Modified On:08/18/2024 Status:confirmed * Medical History: * Surgical History: c atheterization of right heart 06/2019knee arthroscopy/surgery-L knee meniscus repair skin full graft sclp/arm/leg-L wallace 1992sinus surgery procedure 1997eye surgery 2017carpal tunnel surgery 2002shoulder joint surgery [...] M iscellaneous: O ccupation O ccupation: R sean Ponce Pets: none. D rugs/Alcohol: D rugs H [...] List reviewed and reconciled with the patientDiscontinued Keshavxiga(Dapagliflozin Propanediol) 5 MG Tablet 1 tablet Orally Once a day Medication List reviewed and reconciled with the patient * Allergies: N .K.D.A.no[Allergies Verified] Objective: * Vitals: W t:299.0lbs, Ht: [...] C hronic respiratory failure with hypoxia Notes: Vpsk-hd-rjmh encounter performed with the patient to document [...] of Medical Reason: N ot indicated B TN ACTION PLAN Above Normal BMI Follow-up D ietary management education, guidance, and counseling * Follow Up: 1 Year (Reason: IMAN/OHS) * * Sign off status: Completed Visit Status: C HK (Check Out) true * Provider: Laquita De Santiago DO Date: 0 08/18/2024 Generated for Terry pittman/Tracey/Cucaitting on: 0 11/24/2024 10:03 AM EDT History and Physical Notes * HPI (History of Present Illness) Category Sub-Category Detail Notes Category Not es [place] Sleepiness Scale [place] Sleepiness Scale Chance of dozing while sitting [...] . [facility]. Chance of dozing while watching TV:: [...] APPEARANCE: Appears stated age Skin Normal Mouth [place] and moist. Macr oglossia with tongue ridging Trachea Midline Chest Normal Respiratory Normal Movements, Ef fort Normal Auscultation Normal breath sounds Cardiac Regular rate and rhy thm Gastrointestinal Increased central ad iposity Vascular No edema Musculoskeletal Normal posture Neurological Focal, intact Psychiatric Alert and oriented x 3 Mentation/Cognition Normal Oropharynx Mallampati Class III .
--- OUTSIDE RECORDS SUMMARY | 2024-10-11 09:41 | XMS_ITS ---
Author Organization [facility] in [place] Address [address] [place] [address] Care Team Providers Care Blindstitch Lapel Padder Name Role Phone Josh Talavera Primary Care Provider REASON FOR VISIT med refill Medications Medication SIG (Take, Route, Fr equency, Duration) Notes Start Date End Date Status Gabapentin 600 MG TAKE 2 TABLETS BY MO UTH TWICE DAILY orally BID for 30 days Act srini Encounters Encounter Location Date Provider Diagnosis [facility] [address] [place] [address] 10/11/2024 Josh Talavera Type 2 diabetes mellitus with diabetic chronic kidney disease E11.22 Assessments Encounter Date Diagnosis (ICD Code) Assessment Notes Treatment Notes Treatment Clinical Notes Section Notes 10/11/2024 Type 2 diabetes mellitus with diabetic chronic kidney disease (ICD-10 - E11.22) Plan Of Treatment Medication Medication Name Sig Start Date Stop Date Notes Gabapentin 600 MG TAKE 2 TABLETS BY MO UTH TWICE DAILY orally BID for 30 days Next Appt Details Provider Name:Josh pittman, 12/23/2024 09:00:00 AM, [address] [place], [address], Provider Name:Jv De Santiago, 08/16/2025 10:00:00 AM, [address] [place], [address], Progress Notes * Nicholas SKY RDOB:1955 (69 yo M)Acc No.[id number]:10/11/2024 Patient: Nicholas LEWIS :1955 A ge:69 Y S ex:Male Address:[address], [address] * Refills Refill Gabapentin Tablet, 600 MG, orally, 120, TAKE 2 TABLETS BY MOUTH TWICE DAILY, BID, 30 days, Refills=1 * true * Date: Generated for Terry pittman/Tracey/Lindsaysmitting on: 0 11/24/2024 10:03 AM EDT
--- OUTSIDE RECORDS SUMMARY | 2024-11-18 10:00 | XMS_ITS | Encounter Summary ---
Author Organization [facility] Address [address] [place] [address] Care Team Providers Care Operator Weapon Locating Radar Name Role Phone Josh Talavera MD Primary Care Provider [phone] Reason for Visit * Reason Comments DM Foot Care Dm nail care Encounter Details Date Type Department Care Team ([facility] st Contact Info) Description 11/18/2024 10:00 AM EDT Office Visit [facility] [address] [facility] [address] [place] [address] Jeffry Garces, DPM [address] [facility] [address] [place] [address] Diabetes mellitus due to underlying condition with diabetic polyneuropathy, with long-term current use of insulin ([facility]) (Primary Dx); Pain due to onychomycosis of toenails of both feet Social History Tobacco Use Types Packs/Day Years Used Date Smoking Tobacco: Never Passive Smoke Exposure: Never Smokeless Tobacco: Never Tobacco Cessation:Counseling Given: Yes Alcohol Use Standard Drinks/Week Comments Never 0 (1 standard drink = 0.6 oz pur e alcohol) Sex and Gender Information Value Date Recorded Sex Assigned at Male 10/16/2023 9:04 AM EDT Legal Sex Male 8:32 PM EDT Gender Identity Male 10/16/2023 9:04 AM EDT Sexual Orientation Not on file documented as of this encounter Last Filed Vital Signs Vital Sign Reading Time Taken Comments Blood Pressure - - Pulse - - Temperature - - Respiratory Rate 18 11/18/2024 9:46 AM EDT Oxygen Saturation - - Inhaled Oxygen Concentration - - Weight 143 kg (316 lb) 11/18/2024 9:46 AM EDT Height 175.3 cm (5' 9 ) 11/18/2024 9:46 AM EDT Body Mass Index 46.67 11/18/2024 9:46 AM EDT documented in this encounter Progress Notes * Jeffrymichel Garces, DPM - 11/18/2024 10:00 AM EDT Patient: Nicholas Dumont : 1955 PCP: Josh Talavera MD SUBJECTIVE This is a 69 y.o. male that presents today with a CC of elongated, thick nails. Pt states nails have been elongated and thick for many years and cause pain with ambulation in shoegear. Pt has tried previous treatment with minimal relief. Pt presents today for nail care and treatment. Patient is DM2 Patient has had history of tinea pedis in the past Allergies: No Known Allergies Past Medical History: Past Medical History: Diagnosis Date Diabetes ([facility]) Gout Neuropathy in diabetes ([facility]) Onychomycosis Tinea pedis Medications: Current Outpatient Medications: allopurinol (Zyloprim) 100 MG tablet, Take 100 mg by mouth in the morning., Disp: , Rfl: amLODIPine (Norvasc) 10 MG tablet, Take 10 mg by mouth in the morning., Disp: , Rfl: amoxicillin (Amoxil) 500 MG tablet, 4 tabs PO once 30-60 mins before procedure with food, Disp: 4 tablet, Rfl: 3 amoxicillin (Amoxil) 500 MG tablet, 4 tabs PO once 30-60 mins before procedure with food, Disp: 4 tablet, Rfl: 3 aspirin 81 MG EC tablet, Take 81 mg by mouth in the morning., Disp: , Rfl: atorvastatin (Lipitor) 80 MG tablet, Take 80 mg by mouth in the morning., Disp: , Rfl: celecoxib (CeleBREX) 200 MG capsule, Take 200 mg by mouth every 12 (twelve) hours., Disp: , Rfl: ezetimibe-simvastatin (Vytorin) 10-20 MG tablet, Take 1 tablet by mouth in the morning., Disp: , Rfl: furosemide (Lasix) 40 MG tablet, Take 40 mg by mouth in the morning., Disp: , Rfl: gabapentin (Neurontin) 600 MG tablet, Take 600 mg by mouth in the morning., Disp: , Rfl: hydrALAZINE (Apresoline) 50 MG tablet, Take 50 mg by mouth in the morning and 50 mg before bedtime., Disp: , Rfl: hydroCHLOROthiazide (HYDRODiuril) 25 MG tablet, Take 25 mg by mouth in the morning., Disp: , Rfl: insulin detemir (Levemir) 100 UNIT/ML injection, Inject 100 mL under the skin in the morning., Disp: , Rfl: insulin glargine-yfgn (Semglee-yfgn) 100 UNIT/ML pen, ADMINISTER 75 UNITS UNDER THE SKIN TWICE DAILY, Disp: , Rfl: insulin NPH-insulin regular (HumuLIN 70/30) (70-30) 100 UNIT/ML injection, Inject 100 mL under the skin in the morning., Disp: , Rfl: latanoprost (Xalatan) 0.005 % ophthalmic solution, Administer 1 drop into both eyes 1 (one) time each day at the same time., Disp: , Rfl: lisinopril 20 MG tablet, Take 1 tablet by mouth in the morning., Disp: , Rfl: losartan (Cozaar) 50 MG tablet, Take 50 mg by mouth in the morning., Disp: , Rfl: metoprolol tartrate (Lopressor) 50 MG tablet, Take 1 tablet by mouth in the morning and 1 tablet before bedtime., Disp: , Rfl: Social History: Social History Socioeconomic History Marital status: Spouse name: Not on file Number of children: Not on file Years of education: Not on file Highest education level: Not on file Occupational History Not on file Tobacco Use Smoking status: Never Passive exposure: Never Smokeless tobacco: Never Vaping Use Vaping status: Unknown Substance and Sexual Activity Alcohol use: Never Drug use: Never Sexual activity: Defer Partners: Decline to Answer Other Topics Concern Not on file Social History Narrative Not on file Social Drivers of Health Financial Resource Strain: Not on file Food Insecurity: Not on file Transportation Needs: Not on file Physical Activity: Not on file Stress: Not on file Social Connections: Not on file Intimate Partner Violence: Unknown (08/28/2023) Received from [facility] [place] [employer] [facility] [employer] Fear of Current or Ex-Partner: Not on file Emotionally Abused: Not on file Physically Abused: Not on file Sexually Abused: Not on file Physically or Sexually Abused: Not on file Housing Stability: Not on file ROS: General: denies fever, chills, fatigue, malaise OBJECTIVE LE EXAM: DERM: Elongated thick yellow crumbly nails digits 1 through 10. Negative hair growth with thin shiny atrophic skin bilaterally. +1 pitting edema b/l Negative macerations of right and left foot interdigital spaces with negative VASC: positive DP and negative PT pedal pulses NEURO: 5.07 [place] Lenin monofilament test diminished to digits and forefoot bilaterally 125Hz tuning fork diminished to 1st MPJ bilaterally ORTHO: Positive pain on palpation to toenails of the left 1,2,3,4,5 toes and right 1,2,3,4,5 toes ASSESSMENT 1. Diabetes mellitus due to underlying condition with diabetic polyneuropathy, with long-term current use of insulin (CMS/HCC) 2. Pain due to onychomycosis of toenails of both feet PLAN Discussed proper foot care with patient today. Debride nails in length and thickness digits 1 through 10 Jeffry Garces DPM documented in this encounter Plan of Treatment Upcoming Encounters Date Type Department Care Team (Late st Contact Info) Description 01/27/2025 10:10 AM EDT Office Visit [facility] [address] [facility] [address] [place] [address] Jeffry Garces DPM [address] [facility] [address] [place] [address] documented as of this encounter Visit Diagnoses Diagnosis Diabetes mellitus due to underlying condition with diabetic polyneuropathy, with long-term current use of insulin (CMS/HCC)- Primary Pain due to onychomycosis of toenails of both feet documented in this encounter Care Teams Operator Weapon Locating Radar Relationship Specialty Start Date End Date Josh Talavera MD [address] [place] [address] PCP - General Family Medicine 09/02/24 documented as of this encounter
--- NOTE | 2024-11-24 10:00 | CA_ITS ---
Patient Name: MACKENZIE SKY MR#: [id number] : 1955 Exam Date: 11/24/2024 Ordering Doctor: MICH HEWITT CNP ECHOCARDIOGRAM REPORT PROCEDURE: CA ECHO DOPPLER COMPLETE INDICATIONS: Diastolic heart failure, cardiac stents, sleep apnea, hypertension, diabetes COMPARISON: None. DESCRIPTION: COMPLETE ECHOCARDIOGRAM Real-time transthoracic echocardiography with 2D, M-mode, spectral and color flow Doppler performed. QUALITY: Technical quality was adequate. LEFT VENTRICLE: Normal chamber size. Mild left ventricular hypertrophy. D-shaped septum consistent with right ventricular pressure and volume overload. LV EF: Global hypokinesis. Grossly normal; visually estimated ejection fraction is 55 to 60%. No segmental wall motion abnormalities. DIASTOLIC: Diastolic function is indeterminate. ATRIAL SEPTUM: Visually appears intact. LEFT ATRIUM: Mild dilatation. RIGHT ATRIUM: Mild dilatation. RIGHT VENTRICLE: Normal chamber size. Right ventricular systolic function appears reduced. TRICUSPID VALVE: Normal mobility and thickness. No stenosis with trivial regurgitation. Doppler studies reveal severely (>60) elevated right sided pressures. RVSP 64 mmHg MITRAL VALVE: Mildly thickened with normal mobility. No evidence of mitral valve stenosis. There is no mitral annular calcification. No mitral regurgitation. AORTIC VALVE: Normal trileaflet appearance. Mildly calcified aortic valve. Normal leaflet mobility. No evidence of aortic valve stenosis. No aortic regurgitation. AORTIC ROOT: Normal diameter and appearance. Ascending aorta is normal in size. PULMONIC VALVE: Normal thickness and mobility. No stenosis. No regurgitation. PERICARDIUM: No evidence of pericardial effusion. IVC: IVC is dilated (2.6 cm), does not collapse. CONCLUSION: 1. Global left ventricular systolic function is normal; visually estimated ejection fraction is 55 to 60% 2. D-shaped septum consistent with right ventricular pressure and/or volume overload 3. The right ventricle is normal in size with reduced systolic function 4. Mild left ventricular hypertrophy 5. Diastolic function is indeterminate 6. Biatrial dilatation 7. Severely elevated right-sided pressure; RVSP 64 mmHg 8. No significant valvular abnormalities Adult Echocardiography Procedure Report Left Ventricle LVEDD (3.7 - 5.6 cm): 5.15 cm LVESD (2.2 - 4.0 cm): 3.84 cm LVIVS thickness (0.6 - 1.2 cm): 1.27 cm LVPW thickness (0.5 - 1.0 cm): 1.18 cm e': 0.12 m/s E - e': 7.02 LVOT Max Gradient: 2.08 mm[Hg] LVOT Area (cm2): 0.72 m/s Peak Velocity (LVOT): 0.72 m/s Mean Velocity (LVOT): 0.51 m/s LVOT Diameter 2.57 cm Left Atrium LA Volume Index (2D A2C): 36.49 ml/m2 Left Atrium Systolic Dimension: 4.33 cm Mitral Valve MV E to A Ratio: 1.24 Mitral Valve A-Wave Peak Velocity: 0.71 m/s Mitral Valve E-Wave Peak Velocity: 0.87 m/s Right Ventricle Aorta AO Root Diam: 3.92 cm Ascending Ao Diam: 3.11 cm Aortic Valve AoV Area (Peak Harsh): 2.05 cm2, 2.05 cm2 AoV Area (VTI): 2.63 cm2, 2.63 cm2 Peak Velocity(Antegrade Flow): 1.82 m/s Peak Gradient(Antegrade Flow): 13.25 mm[Hg] Mean Velocity(Antegrade Flow): 1.03 m/s Mean Gradient(Antegrade Flow): 5.52 mm[Hg] Velocity Time Integral: 38.64 cm Tricuspid Valve Peak Velocity (Regurgitant Flow): 3.49 m/s Pulmonic Valve Mean Gradient: 1.80 mm[Hg] Mean Velocity: 0.61 m/s Peak Velocity: 0.98 m/s, 0.92 m/s Peak Gradient: 3.37 mm[Hg], 3.81 mm[Hg] Right Atrium Right Atrium Systolic Pressure: 66.53 ml, 66.53 ml Dictated by: Getachew Munguia M.D. on 11/24/2024 at 17:01 Approved by: Getachew Munguia M.D. on 11/24/2024 at 17:06
--- OUTSIDE RECORDS SUMMARY | 2024-11-24 10:01 | XMS_ITS | Encounter Summary ---
Author Organization [facility] Address [address] [facility] [place] [address] Care Team Providers Care Certified Professional Controller Name Role Phone Josh Talavera MD Primary Care Provider [phone] Encounter Details Date Type Department Care Team (Late st Contact Info) Description 10/06/2023 Abstract [facility] [address] [facility] [address] [place] [phone] Emily Larson MD [address] [place] [place], [place] [id number] Social History Tobacco Use Types Packs/Day Years Used Date Smoking Tobacco: Never Passive Smoke Exposure: Never Smokeless Tobacco: Never Alcohol Use Standard Drinks/Week Comments Never 0 (1 standard drink = 0.6 oz pur e alcohol) Sex and Gender Information Value Date Recorded Sex Assigned at Male 10/16/2023 9:04 AM EDT Legal Sex Male 8:32 PM EDT Gender Identity Male 10/16/2023 9:04 AM EDT Sexual Orientation Not on file documented as of this encounter Plan of Treatment Upcoming Encounters Date Type Department Care Team (Late st Contact Info) Description 01/27/2025 10:10 AM EDT Office Visit [facility] [address] [place] [address] [place] [phone] Jeffry Garces DPM [address] [facility] [address] [place] [address] documented as of this encounter Visit Diagnoses Not on filedocumented in this encounter Care Teams Certified Professional Controller Relationship Specialty Start Date End Date Josh Talavera MD [address] [place], [place] [id number] PCP - General Family Medicine 09/02/24 documented as of this encounter
--- OUTSIDE RECORDS SUMMARY | 2024-11-24 10:01 | XMS_ITS | Clinical Summary ---
Author Organization [facility] Address [address] [place] [address] Care Team Providers Care Field Health Officer Name Role Phone Ilan Josh Primary Care Provider [phone] Allergies No known active allergies Medications Medication Sig Dispensed Refills Start Date End Date Status allopurinol (Zyloprim) 100 mg tablet Take 1 tablet by mouth in the morning. 03/28/2021 Active aspirin 81 mg EC tablet Take 1 tablet every day by oral route. Active gabapentin (Neurontin) 600 mg tablet Take 2 tablets by mouth in the morning and at bedtime. Active insulin detemir (Levemir U-100 Insulin) 100 unit/mL injection Levemir U-100 Insulin 100 unit/mL subcutaneous solution ADMINISTER 50 UNITS UNDER THE SKIN TWICE DAILY Active celecoxib (CeleBREX) 200 mg capsule 1 capsule every 12 (twelve) hours. Active insulin glargine-yfgn 100 unit/mL (3 mL) insulin pen insulin glargine-yfgn (U-100) 100 unit/mL (3 mL) subcutaneous pen ADMINISTER 75 UNITS UNDER THE SKIN TWICE DAILY Active insulin NPH and regular human (HumuLIN 70/30 U-100 Insulin) 100 unit/mL (70-30) injection Humulin 70/30 U-100 Insulin 100 unit/mL subcutaneous suspension ADMINISTER 75 UNITS UNDER THE SKIN TWICE DAILY Active amLODIPine (Norvasc) 10 mg tabletIndications:Be nign hypertensive heart disease with heart failure (CMS/HCC) Take 1 tablet (10 mg) by mouth in the morning. 90 tablet 3 06/16/2024 Active atorvastatin (Lipitor) 80 mg tabletIndications:Mi xed hyperlipidemia Take 1 tablet (80 mg) by mouth at bedtime. 90 tablet 3 06/16/2024 Active furosemide (Lasix) 40 mg tabletIndications:Be nign hypertensive heart disease with heart failure (CMS/HCC) Take 1 tablet (40 mg) by mouth in the morning. 90 tablet 3 06/16/2024 Active hydrALAZINE (Apresoline) 100 mg tabletIndications:Be nign hypertensive heart disease with heart failure (CMS/HCC) Take 1 tablet (100 mg) by mouth two times daily. 180 tablet 3 06/16/2024 Active losartan (Cozaar) 50 mg tabletIndications:Be nign hypertensive heart disease with heart failure (CMS/HCC) Take 1 tablet (50 mg) by mouth once daily as directed. 90 tablet 3 06/16/2024 Active metoprolol tartrate (Lopressor) 50 mg tabletIndications:Be nign hypertensive heart disease with heart failure (CMS/HCC) Take 1 tablet (50 mg) by mouth in the morning and at bedtime. 180 tablet 3 06/16/2024 Active Active Problems Problem Noted Date Diagnosed Date Biceps tendinitis 06/16/2024 Peripheral venous insufficiency 11/27/2022 06/25/2023 Chronic renal impairment 05/29/2022 Cardiovascular stress test abnormal 05/29/2022 Arthritis 05/29/2022 Dupuytren's disease of palm 05/29/2022 Degeneration of intervertebral disc 05/29/2022 Pain in upper limb 05/29/2022 Hypertensive disorder 05/29/2022 Edema of lower extremity 05/29/2022 Dyspnea 05/29/2022 Ulnar neuropathy 05/29/2022 Chronic obstructive lung disease 06/10/2019 Diastolic heart failure 06/10/2019 Obstructive sleep apnea syndrome 06/10/2019 Obesity 06/10/2019 Positive D-dimer 06/10/2019 Disorder of lipid metabolism 06/07/2014 Benign essential hypertension 05/09/2014 Type 2 diabetes mellitus without complication Carpal tunnel syndrome 07/23/2012 Mononeuritis 07/23/2012 Brachial neuritis 07/23/2012 Shoulder joint pain 07/22/2012 Coronary arteriosclerosis 06/16/2012 Hyperlipidemia 06/16/2012 Gastroesophageal reflux disease 06/11/2012 Type 1 diabetes mellitus 06/11/2012 Family History Medical History Relation Name Comments CABG Brother Coronary artery disease Brother Relation Name Status Comments Brother Social History Tobacco Use Types Packs/Day Years Used Date Smoking Tobacco: Never Smokeless Tobacco: Never Tobacco Cessation:Counseling Given: Not Answered Alcohol Use Standard Drinks/Week Comments Not Currently 0 (1 standard drink = 0.6 oz pur e alcohol) PHQ-2 Answer Date Recorded Patient Health Questionnaire-2 Score 0 12/30/2022 [place] Safety & [place] Answer Date Rec orded Fear of Current or Ex-Partner Not on file Emotionally Abused Not on file 08/28/2023 Physically Abused Not on file 08/28/2023 Sexually Abused Not on file 08/28/2023 Physically or Sexually Abused Not on file Sex and Gender Information Value Date Recorded Sex Assigned at Not on file Gender Identity Not on file Sexual Orientation Not on file Last Filed Vital Signs Vital Sign Reading Time Taken Comments Blood Pressure 134/64 06/16/2024 11:23 AM EST Pulse 56 06/16/2024 11:23 AM EST Temperature - - Respiratory Rate - - Oxygen Saturation 94% 06/16/2024 11:23 AM EST Inhaled Oxygen Concentration - - Weight 141 kg (310 lb) 06/16/2024 11:23 AM EST Height 175.3 cm (5' 9 ) 06/16/2024 11:23 AM EST Body Mass Index 45.78 06/16/2024 11:23 AM EST Plan of Treatment Health Maintenance Due Date Last Done Comments CT Colonography 1954 Colonoscopy 1954 Colorectal Cancer Screening 1954 FIT-DNA 1954 FIT 1954 FOBT 1954 Medicare Annual Wellness (AWV) 1954 Sigmoidoscopy 1954 Diabetes: Retinopathy Screening 1964 Depression Screening 1966 Diabetes: Urine Protein Screening 1973 Adult Tetanus 1976 Zoster Vaccines (1 of 2) 2004 Fall Risk Screening 2019 Diabetes: Hemoglobin A1C 09/12/2019 06/13/2019 COVID-19 Vaccine ( season) 2024 Pneumococcal Vaccine: 65+ Years Completed 04/16/2021, 02/02/2016 Influenza Vaccine Completed 04/08/2024, , 04/15/2022, Additional history exists HIB Vaccines Aged Out No longer eligi ble based on patient's age to complete this topic HPV Vaccines Aged Out No longer eligi ble based on patient's age to complete this topic IPV Vaccines Aged Out No longer eligi ble based on patient's age to complete this topic Meningococcal B Vaccine Aged Out No l onger eligible based on patient's age to complete this topic Meningococcal Vaccine Aged Out No kerline annalee eligible based on patient's age to complete this topic Rotavirus Vaccines Aged Out No longer eligible based on patient's age to complete this topic Procedures Procedure Name Priority Date/Time Associated Diagnosis Comments HEMOGLOBIN A1C Timed 06/13/2019 5:41 AM EST from Last 3 Months or Most Recently Relevant to Health Maintenance Results * (ABNORMAL) Hemoglobin A1C (06/13/2019 5:41 AM EST) Hemoglobin A1C 8.1(H) 4.0 - 6.0 % LAB CONVERSIONS Estimated Average Glucose 186(H) 70 - 126 mg/dL LAB CONVERSIONS 06/13/2019 5:41 AM EST 06/13/2019 6:03 AM EST Narrative LAB CONVERSIONS - 06/13/2019 12:14 PM EST No: Do not add to previous draw Sea Voss MD LAB BLOOD ORDERABLES LAB CONVERSIONS from Last 3 Months or Most Recently Relevant to Health Maintenance Care Teams Field Health Officer Relationship Specialty Start Date End Date Josh Talavera DO [address] [place] [address] PCP - General 05/29/22
--- OUTSIDE RECORDS SUMMARY | 2024-11-24 10:01 | XMS_ITS | Referral Summary ---
Author Organization [facility] Address [address] [place] [address] Care Team Providers Care Director Strategic Planning Name Role Phone Franco Talaverael Primary Care Provider [phone] Allergies No known active allergies Medications Medication [...] disease 06/11/2012 Type 1 diabetes mellitus 06/11/2012 Social History Tobacco Use Types Packs/Day Years Used Date Smoking Tobacco: Never Smokeless Tobacco: Never Tobacco Cessation:Counseling Given: Not Answered Alcohol Use Standard Drinks/Week Comments Not Currently 0 (1 standard drink = 0.6 oz pur e alcohol) PHQ-2 Answer Date Recorded Patient Health Questionnaire-2 Score 0 12/30/2022 [place] Safety & Environment Answer Date Rec orded [...] 06/16/2024 11:23 AM EST Plan of Treatment Not on file Procedures Procedure Name Priority Date/Time Associated Diagnosis [...] Recently Relevant to Health Maintenance Care Teams Director Strategic Planning Relationship Specialty Start Date End Date Josh Talavera DO [address] [place] [address] PCP - General 05/29/22
--- OUTSIDE RECORDS SUMMARY | 2024-11-24 10:02 | XMS_ITS | Encounter Summary ---
Author Organization [facility] Address [address] [place] [address] Care Team Providers Care Credit Officer Name Role Phone Josh Talavera MD Primary Care Provider [phone] Encounter Details Date Type Department Care Team (Latest Contact Info) Description 11/18/2024 Travel Social History Tobacco Use Types Packs/Day Years [...] EDT Office Visit [facility] [address] [facility] [address] [place] [id number] Jeffry Garces DPM [address] [facility] [address] [place] [address] documented as of this encounter Visit Diagnoses Not on filedocumented in this encounter Care Teams Credit Officer Relationship Specialty Start Date End Date Josh Talavera MD [address] [place] [address] PCP - General Family Medicine 09/02/24 documented as of this encounter
--- OUTSIDE RECORDS SUMMARY | 2024-11-24 10:02 | XMS_ITS | Clinical Summary ---
Author Organization [facility] Address [address] [place] [address] Care Team Providers [employer] Flatbed Truck Driver Name Role Phone Josh Talavera MD Primary Care Provider Allergies No known active allergies Medications allopurinol (Zyloprim) 100 MG tablet Take 100 mg by mouth in the morning. Active amLODIPine (Norvasc) 10 MG tablet Take 10 mg by mouth in the morning. 2 Active aspirin 81 MG EC tablet Take 81 mg by mouth in the morning. Active celecoxib (CeleBREX) 200 MG capsule Take 200 mg by mouth every 12 (twelve) hours. Active ezetimibe-simvas tatin (Vytorin) 10-20 MG tablet Take 1 tablet by mouth in the morning. Active furosemide (Lasix) 40 MG tablet Take 40 mg by mouth in the morning. Active gabapentin (Neurontin) 600 MG tablet Take 600 mg by mouth in the morning. Active hydrALAZINE (Apresoline) 50 MG tablet Take 50 mg by mouth in the morning and 50 mg before bedtime. Active hydroCHLOROthiaz jyothi (HYDRODiuril) 25 MG tablet Take 25 mg by mouth in the morning. Active insulin detemir (Levemir) 100 UNIT/ML injection Inject 100 mL under the skin in the morning. Active insulin NPH-insulin regular (HumuLIN 70/30) (70-30) 100 UNIT/ML injection Inject 100 mL under the skin in the morning. Active latanoprost (Xalatan) 0.005 % ophthalmic solution Administer 1 drop into both eyes 1 (one) time each day at the same time. Active losartan (Cozaar) 50 MG tablet Take 50 mg by mouth in the morning. Active atorvastatin (Lipitor) 80 MG tablet Take 80 mg by mouth in the morning. 3 Active insulin glargine-yfgn (Semglee-yfgn) 100 UNIT/ML pen ADMINISTER 75 UNITS UNDER THE SKIN TWICE DAILY Active lisinopril 20 MG tablet Take 1 tablet by mouth in the morning. Active metoprolol tartrate (Lopressor) 50 MG tablet Take 1 tablet by mouth in the morning and 1 tablet before bedtime. Active amoxicillin (Amoxil) 500 MG tabletIndication s:History of total knee replacement, unspecified laterality 4 tabs PO once 30-60 mins before procedure with food 4 tablet 3 5 Active amoxicillin (Amoxil) 500 MG tabletIndication s:History of total knee replacement, unspecified laterality 4 tabs PO once 30-60 mins before procedure with food 4 tablet 3 5 Active Active Problems Problem Noted Date Diagnosed Date Diabetic mononeuropathy 11/27/2022 Peripheral venous insufficiency 11/27/2022 Encounters Date Type Department Care Team Description 11/18/2024 10:00 AM EDT Office Visit [facility] [address] [facility] [address] [place] [address] Jeffry Garces DPM Diabetes mellitus due to underlying condition with diabetic polyneuropathy, with long-term current use of insulin ([facility]) (Primary Dx); Pain due to onychomycosis of toenails of both feet 11/18/2024 Bamboo flowsheet [facility] [address] [facility] [address] [place] [phone] Jeffry Garces DPM 11/18/2024 Travel 09/20/2024 Telephone [facility] [address] [place] [address] Jr. Ramón Victoria, Antibiotic 09/02/2024 10:40 AM EST Office Visit [facility] [address] [facility] [address] [place] [address] Jeffry Garces DPM Diabetes mellitus due to underlying condition with diabetic polyneuropathy, with long-term current use of insulin (CMS/HCC) (Primary Dx); Pain due to onychomycosis of toenails of both feet 09/02/2024 Bamboo flowsheet [facility] [address] [facility] [address] [place] [phone] Jeffry Garces DPM 09/02/2024 Travel from Last 3 Months Family History Medical History Relation Name Comments Heart disease Father Arthritis Mother Heart disease Mother Hypertension Mother Relation Name Status Comments Father Mother Social History Tobacco Use Types Packs/Day Years [...] AM EDT Sexual Orientation Not on file Last Filed Vital Signs Vital Sign Reading Time Taken Comments Blood Pressure 126/80 05/06/2024 12:00 PM EDT Pulse 85 05/06/2024 12:00 PM EDT Temperature - - Respiratory Rate 18 11/18/2024 9:46 AM EDT Oxygen Saturation - - Inhaled Oxygen Concentration - - Weight 143 kg (316 lb) 11/18/2024 9:46 AM EDT Height 175.3 cm (5' 9 ) 11/18/2024 9:46 AM EDT Body Mass Index 46.67 11/18/2024 9:46 AM EDT Plan of Treatment Upcoming Encounters Date Type Department Care Team ([facility] st Contact Info) Description 01/27/2025 10:10 AM EDT Office Visit [facility] [address] [facility] [address] [place] [phone] Jeffry Garces DPM [address] [facility] 5 [place] [address] Insurance [employer] Care Teams [employer] Flatbed Truck Driver Relationship Specialty Start Date End Date Josh Talavera MD [address] [place] [address] PCP - General Family Medicine 09/02/24
--- OUTSIDE RECORDS SUMMARY | 2024-11-24 10:02 | XMS_ITS | Encounter Summary ---
Author Organization [facility] Address [address] [facility] [place] [address] Care Team Providers Care Tile Layer Name Role Phone Josh Talavera MD Primary Care Provider [phone] Encounter Details Date Type Department Care Team (Late st Contact Info) Description 11/18/2024 Bamboo flowsheet [facility] [address] [place] [phone] Jeffry Garces DPM [address] [address] Social History Tobacco Use Types Packs/Day Years [...] EDT Office Visit [facility] [address] [place] [address] Jeffry Garces DPM [address] [address] documented as of this encounter Visit Diagnoses Not on filedocumented in this encounter Care Teams Tile Layer Relationship Specialty Start Date End Date Josh Talavera MD [address] [place] [address] PCP - General Family Medicine 09/02/24 documented as of this encounter
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
--- OUTSIDE RECORDS SUMMARY | 2024-11-24 10:03 | XMS_ITS | Patient Health Record ---
Author Organization [facility] in [place] Address [address] [place] [address] Care Team Providers Care Senior Oracle Adf Developer Name Role Phone Josh Talavera Primary Care Provider Jv De Santiago [phone] Allergies No Known Allergies Results Component Value Reference Range Notes HEMOGLOBIN A1C - IN OFFICE Reviewed date:06/28/2024 11:34:36 AM Interpretation:8.2 Performing Lab: Notes/Report: 8.2 HEMOGLOBIN A1C - IN OFFICE 8.2 4.4 - 6.4 Reason For Referral No Information Medications Medication SIG (Take, Route, Frequency, Duration) Notes Start Date End Date Status Farxiga 5 MG 1 tablet Orally Once a day for 30 days 07/15/2024 Active FreeStyle Abdon 2 Sensor - USE DIRECTED AND CHANGE EVERY 2 WEEKS for 28 Not-Taking Furosemide 40 MG TAKE 1 TABLET BY EVERY DAY Orally Once a day for 90 days Active Aspirin 325 MG 1 tablet Orally Once a day Active Metoprolol Tartrate 50 MG TAKE 1 TABLET BY MOUTH TWICE DAILY WITH FOOD Active Atorvastatin Calcium 80 MG TAKE 1 TABLET BY MOUTH DAILY Active Multivitamin Active BD Pen Needle Short U/F 31G X 8 MM USE FOUR TIMES DAILY DIRECTED for 90 Active Omeprazole 20 MG 1 capsule 30 minutes before morning meal Orally Once a day 10/29/2023 Active ZyrTEC Active hydrALAZINE HCl 100 MG 1 tablet with rupali d Orally BID Active Lantus SoloStar 100 UNIT/ML INJECT 70 UNITS UNDER THE SKIN EVERY MORNING AND 58 UNITS EVERY EVENING for 80 Active Allopurinol 100 MG TAKE 1 TABLET BY KLAUS TH EVERY DAY for 90 Active Latanoprost 0.005 % 1 drop into affected eye in the evening Ophthalmic Once a day Active amLODIPine Besylate 10 MG TAKE 1 TABLET BY MOUTH EVERY DAY Active Losartan Potassium 50 MG TAKE 1 TABLET B Y MOUTH EVERY DAY for 90 Active oxyCODONE-Acetaminophen 5-325 MG 1 tablet as needed Orally q4 hours 10/29/2023 Not-Taking Ozempic (0.25 or 0.5 MG/DOSE) 2 MG/3ML INJECT 0.5 MG UNDER THE SKIN ONCE EVERY WEEK for 28 Not-Taking Gabapentin 600 MG TAKE 2 TABLETS BY MO UTH TWICE DAILY orally BID for 30 days Active Immunizations Vaccine Route Administration Date Status Comme nts DTP - historic Unknown 12/30/2020 Administered Flu, Fluad (6490-4528) (56622) 65 yrs+, single-dose syringe IM Intramuscular 04/15/2022 Administered Flu, Fluad (2552-1419) (93713) 65 yrs+, single-dose syringe IM Intramuscular 04/24/2023 Administered Flu, Fluad (00431) 65 yrs and older, single-dose syringe IM Intramuscular 04/08/2024 Administered Pneumococcal (Pneumovax 23) Unknown 04/16/2021 Administered Pneumococcal (Prevnar 13) Unknown 02/02/2016 Administer ed Tdap Unknown 12/29/2020 Administered Social History Tobacco Use: Social History Observation Description Date Details (start date - stop date) Never Smoker NA - NA Tobacco Control (Standard) Question Answer Notes Tobacco use: Nonsmoker Problems Problem Type SNOMED Code ICD Code Onset Dates Problem Status W/U Status Risk Notes Problem 42299410 Essential (prima ry) hypertension (I10) Active confirmed Problem 242834226 Gastro-esophagea l reflux disease without esophagitis (K21.9) Active confirmed Problem 231693019 Type 2 diabetes mellitus with diabetic chronic kidney disease (E11.22) Active confirmed Problem 53978954 Type 2 diabetes mellitus with hypoglycemia without coma (E11.649) Active confirmed Problem 396109991 Morbid (severe) obesity due to excess calories (E66.01) Active confirmed Problem 26577370 Other chronic pa in (G89.29) Active confirmed Problem 084690894 Chronic diastoli c (congestive) heart failure (I50.32) Active confirmed Problem Dilatation of aorta (52734985) Thoracic aortic ectasia (I77.810) Active confirmed Problem Chronic respiratory failure (40227433) Chronic respiratory failure with hypoxia (J96.11) Active confirmed Problem Chronic respiratory failure (43118896) Chronic respiratory failure with hypercapnia (J96.12) Active confirmed Problem 049182750 intermodal customer service (curre nt) use of insulin (Z79.4) Active confirmed Problem Hypertension (52468623) Hypertension (I10) Active confirmed Problem Sleep apnea (00477557) Sleep apnea (G47.30) Active confirmed Problem 13898477 IMAN (obstructive sleep apnea) (G47.33) Active confirmed Problem Neuropathy (863206687) Neuropathy (G62.9) Active confirmed Problem Diabetes mellitus type 2 (disorder) (78194570) DM2 (diabetes mellitus, type 2) (E11.9) Active confirmed Problem 739381022 Diabetic polyneuropathy associated with type 2 diabetes mellitus (E11.42) Active confirmed Problem 792500084 Lumbar spondylos is (M47.816) Active confirmed Problem Extreme obesity with alveolar hypoventilation (496454132) Obesity hypoventilation syndrome (E66.2) Active confirmed Problem 34991981493938029 Dupuytren's contracture of both hands (M72.0) Active confirmed Problem 960185152 Chronic gout wit hout tophus, unspecified cause, unspecified site (M1A.9XX0) Active confirmed Problem 767111720 Pure hypercholesterolemia (E78.00) Active confirmed Problem 954950790 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, 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15 kg/m2 08/18/2024 Encounters Encounter Location Date Provider Diagnosis [facility] [address] [place] [address] 04/22/2024 Josherwin Talavera Chronic gout without tophus, unspecified cause, unspecified site M1A.9XX0 [facility] [address] [place] [address] 07/15/2024 Josh Talavera Pulmonary Medicine [place] [address] [place] [address] 08/16/2024 Jv De Santiago [facility] [address] [place] [address] 10/11/2024 Josh Talavera Type 2 diabetes onel itus with diabetic chronic kidney disease E11.22 [facility] [address] [place] [address] 11/30/2023 Josh Talavera [facility] [address] [place] [address] 04/08/2024 Josh Talavera Hypertension I10 [facility] [address] [place] [address] 06/24/2024 Josh Talavera Type 2 diabetes onel itus with diabetic chronic kidney disease E11.22 ; Pure hypercholesterolemia E78.00 ; Essential (primary) hypertension I10 ; Chronic gout without tophus, unspecified cause, unspecified site M1A.9XX0 ; Encounter for screening for malignant neoplasm of prostate Z12.5 ; Chronic kidney disease, stage 3a N18.31 ; Morbid (severe) obesity due to excess calories E66.01 and Body mass index [BMI] 45.0-49.9, adult Z68.42 Pulmonary [facility] [place] [address] [place] [address] 08/18/2024 Jv De Santiago IMAN (obstructive sle ep apnea) G47.33 ; Obesity hypoventilation syndrome E66.2 ; Chronic respiratory failure with hypoxia J96.11 ; Chronic respiratory failure with hypercapnia J96.12 and Morbid (severe) obesity due to excess calories E66.01 [facility] [address] [place] [address] 11/28/2023 Josh Talavera Encounter for Medica re annual wellness exam Z00.00 ; Body mass index [BMI] 40.0-44.9, adult Z68.41 ; Morbid (severe) obesity due to excess calories E66.01 ; Impacted cerumen, bilateral H61.23 ; Sebaceous cyst L72.3 ; Type 2 diabetes mellitus with diabetic chronic kidney disease E11.22 ; Diabetic polyneuropathy associated with type 2 diabetes mellitus E11.42 ; IMAN (obstructive sleep apnea) G47.33 ; Pure hypercholesterolemia E78.00 ; Chronic kidney disease, stage 3a N18.31 ; intermodal customer service (current) use of insulin Z79.4 ; Hypertension I10 ; Displaced bicondylar fracture of right tibia, subsequent encounter for closed fracture with routine healing S82.141D ; Chronic gout without tophus, unspecified cause, unspecified site M1A.9XX0 and Gastro-esophageal reflux disease without esophagitis K21.9 [place] [address] [place] [address] 04/08/2024 Josh Talavera Encounter for immuni zation Z23 Assessments Encounter Date Diagnosis (ICD Code) Assessment Notes Treatment Notes Treatment Clinical Notes Section Notes 08/18/2024 IMAN (obstructive sle ep apnea) (ICD-10 - G47.33) Jjgb-hl-urre encounter performed with the patient to document continued need for PAP therapy. -DME: [facility] -PS12/12/2015; Initial AHI: 55 -Last PAP titration 07/14/2019: BiPAP @ 14/30gbJ1Y -Compliance was reviewed from 07/19/2024 - 08/17/2024 -Total days used: 29 (97%) -Total of all days >4 hours of use: 25/30 (83%) -Current model, mode, & pressure: AirCurve 10 VAuto BiPAP 15/10 -Residual AHI: 0.6 -Air leak (95th percentile): 8.2L/min -Mask/harness fitting: Great -Sleep quality: Improved with use -Daytime hypersomnolence: Decreased -Recommendations : Patient continues to have great compliance with [...] bedtime and with any naps. -Note: This jvvq-hy-utau visit comes with my authorization that the patient's DME may request to renew, reorder, and/or replace tubing, supplies, mask, and/or PAP device (if applicable). 08/18/2024 Obesity hypoventilat ion syndrome (ICD-10 - E66.2) Treated with BiPAP. Complinance is great as above. 11/28/2023 Encounter for Medica re annual wellness exam (ICD-10 - Z00.00) rec colonoscopy in 2029 rec shingrix rec prevnar 20 diet/exercise eye and dental exams yearly rtc 1 year labs yearly rec flu shot yearly rec rsv vaccine rec dtap q10 years 04/08/2024 Encounter for immunization (ICD-10 - Z23) 06/24/2024 Type 2 diabetes mellitus with diabetic chronic kidney disease (ICD-10 - E11.22) labs and urine rtc 6 months diet/exercise eye exam yearly - dilated foot exam daily bs check via CGM - rec using compression sleeve at HS to help the CGM stay in place uncontrolled continue statin/ARB samples of farxiga 5mg daily given - call if helps 06/24/2024 Pure hypercholesterolemia (ICD-10 - E78.00) controlled LDL goal <70 diet/exercise lab yearly 04/08/2024 Hypertension (ICD-10 - I10) 04/22/2024 Chronic gout without tophus, unspecified cause, unspecified site (ICD-10 - M1A.9XX0) 10/11/2024 Type 2 diabetes mellitus with diabetic chronic kidney disease (ICD-10 - E11.22) 06/24/2024 Essential (primary) hypertension (ICD-10 - I10) bp check daily goal <130/80 diet/exercise monitor bmp and urine microalbumin controlled rtc 6 months 11/28/2023 Body mass index [BMI ] 40.0-44.9, adult (ICD-10 - Z68.41) 08/18/2024 Chronic respiratory failure with hypoxia (ICD-10 - J96.11) Zrnu-ue-zsvs encounter performed with the patient to document continued need for supplemental oxygen (O2). -Prior testing: Nocturnal pulse ox 06/14/2019:---Ini tiated @ rest: SpO2 81% on RA, placed [...] that led to the point of requiring O2.-Recommendati ons: Continue O2 @ 2L/min bleed-in 08/18/2024 Chronic respiratory failure with hypercapnia (ICD-10 - J96.12) Prior testing: --ABG 06/15/2019: On RA- pH 7.45, pCO2 60, PaO2 49--ABG 06/11/2019: On 3L/min- pH 7.38, pCO2 70, PaO2 63 Associated with OHS. Treated with BiPAP - AHI 0.6. No evidence of acute hypercapnia. 11/28/2023 Morbid (severe) obes ity due to excess calories (ICD-10 - E66.01) diet/exercise 06/24/2024 Chronic gout without tophus, unspecified cause, unspecified site (ICD-10 - M1A.9XX0) monitor uric acid - goal <6 diet stable 06/24/2024 Encounter for screen ing for malignant neoplasm of prostate (ICD-10 - Z12.5) 11/28/2023 Impacted cerumen, bilateral (ICD-10 - H61.23) debrox otc rtc if wish removal here by me 08/18/2024 Morbid (severe) obes ity due to excess calories (ICD-10 - E66.01) Patient's weight is inducing a restrictive pulmonary physiology. Weight loss indicated: Decrease calories, increase activity. 11/28/2023 Sebaceous cyst (ICD- 10 - L72.3) call if s/s of infection call for referral to derm for removal 06/24/2024 Chronic kidney disea se, stage 3a (ICD-10 - N18.31) farxiga 5mg daily samples given - call if tolerating and we will do a rx monitor bmp neph if worsens stable 06/24/2024 Morbid (severe) obes ity due to excess calories (ICD-10 - E66.01) diet/exercise 11/28/2023 Type 2 diabetes mellitus with diabetic chronic kidney disease (ICD-10 - E11.22) monitor BS routinely diet/exercise eye exam yearly - dilated foot exam daily monitor A1c and urine microalbumin controlled rtc 6 months 11/28/2023 Diabetic polyneuropa thy associated with type 2 diabetes mellitus (ICD-10 - E11.42) see above oarrs ok controlled continue statin/ARB 06/24/2024 Body mass index [BMI ] 45.0-49.9, adult (ICD-10 - Z68.42) 11/28/2023 IMAN (obstructive sle ep apnea) (ICD-10 - G47.33) rec weight loss continue CPAP stable 11/28/2023 Pure hypercholesterolemia (ICD-10 - E78.00) LDL goal <70 diet/exercise controlled 11/28/2023 Chronic kidney disea se, stage 3a (ICD-10 - N18.31) neph if worsens BS/BP control continue ARB rec farxiga due to CKD controlled 11/28/2023 intermodal customer service (current) use of insulin (ICD-10 - Z79.4) 11/28/2023 Hypertension (ICD-10 - I10) bp check daily goal <130/80 diet/exercise controlled 11/28/2023 Displaced bicondylar fracture of right tibia, subsequent encounter for closed fracture with routine healing (ICD-10 - S82.141D) f/u podiatry as directed NWB R LE 11/28/2023 Chronic gout without tophus, unspecified cause, unspecified site (ICD-10 - M1A.9XX0) monitor uric acid - get copy from [facility] lab - they didnt send it to us when I ordered it controlled based on s/s goal <6 diet 11/28/2023 Gastro-esophageal reflux disease without esophagitis (ICD-10 - K21.9) rec weight loss continue med diet controlled Plan Of Treatment Pending Test Test Name Order Date CMP (COMPLETE METABOLIC PANEL) 3 CMP (COMPLETE METABOLIC PANEL) 4 HEMOGLOBIN A1C (GLYCO) 06/24/2024 LIPID PANEL (CHOL/TRIG/HDL/LDL) 06/24/20 24 CBC WITH DIFF 06/24/2024 MICROALBUMIN with ALB/CREAT RATIO, URINE (MALB)) 06/24/2024 MICROALBUMIN with ALB/CREAT RATIO, URINE (MALB)) 04/24/2023 PTH INTACT (PARATHYROID HORMONE) 023 PTH INTACT (PARATHYROID HORMONE) 024 URIC ACID 06/24/2024 VITAMIN D, 25 LEVEL (TOTAL) 04/24/2023 VITAMIN D, 25 LEVEL (TOTAL) 06/24/2024 PSA, TOTAL 06/24/2024 Next Appt Details Provider Name:Josh pittman, 12/23/2024 09:00:00 AM, [address] [place], [address], Provider Name:Jv De Santiago, 08/16/2025 10:00:00 AM, [address] [place], [address], Insurance Providers Payer Name Payer Address Payer Phone Subscriber Number Group Number Insured Name Patient Relationship to Insured Coverage Start Date Coverage End Date [facility] [address] [address] [place] [address] [id number] [address] hayesuel Self - patient is the insured 2 Medical (General) History Medical History History ICD Code microalbuminuria due to type 2 diabetes mellitus lumbar spondylosis pulomnary hypertension peripheral vascular disease lipoma of head and neck chronic kidney disease stage 3 diverticular disease of colon coronary arteriosclerosis retinal hemorrhage proliferative retinopathy du e to diabetes mellitus-bilateral with macular edema uncomplicated umbilical hernia gout hypertensive disorder hyperlipidemia IMAN (obstructive sleep apnea) G47.33 Chronic diastolic CHF (congestive heart failure) I50.32 Chronic respiratory failure with hypoxia J96.11 Chronic respiratory failure with hyperca pnia J96.12 Obesity hypoventilation syndrome E66.2 Surgical History Surgery Date(Month/Year) eye surgery 2017 sinus surgery procedure 1998 skin full graft sclp/arm/leg-L wallace 1991 knee arthroscopy/surgery-L knee meniscus repair catheterization of right heart 06/2019 shoulder joint surgery 2007 colonoscopy-rec every 10 years+polyp carpal tunnel surgery 2001 removal of tonsils- as a child knee replacement 2013 cariac catheterization 12/06/2015 colonoscopy-diverticulosis 04/06/2008 Hospitalization History Reason Date(Month/Year) R tibia fx - 09/2023
--- OUTSIDE RECORDS SUMMARY | 2024-11-24 10:03 | XMS_ITS | Encounter Summary ---
Author Organization [facility] Address [address] [place] [address] Care Team Providers Care Hospice Care Consultant Name Role Phone Josh Talavera MD Primary Care Provider [phone] Encounter Details Date Type Department Care Team (Late st Contact Info) Description 06/24/2024 Abstract [facility] [address] [place] [address] Unallocated, [facility] Provider, [address] [place] [address] Social History Tobacco Use Types Packs/Day Years [...] [facility] [address] [place] [address] eJffry Garces DPM [address] [facility] [address] [place] [address] documented as of this encounter Visit Diagnoses Not on filedocumented in this encounter Care Teams Hospice Care Consultant Relationship Specialty Start Date End Date Josh Talavera MD [facility] [address] [id number] PCP - General Family Medicine 09/02/24 documented as of this encounter
--- OUTSIDE RECORDS SUMMARY | 2024-11-24 10:03 | XMS_ITS | Clinical Summary ---
Author Organization [facility] Address [address] [place] [address] Care Team Providers Care Driller And Reamer Name Role Phone Josh Talavera MD Primary Care Provider Allergies No known active allergies Medications metoprolol tartrate (LOPRESSOR) 50 MG tablet TAKE 1 TABLET BY MOUTH TWICE DAILY 1 Active metoprolol tartrate (LOPRESSOR) 50 MG tablet metoprolol tartrate 50 mg tablet TAKE 2 TABLET BY MOUTH TWICE DAILY Active amLODIPine (NORVASC) 10 MG tablet amlodipine 10 mg tablet TAKE 1 TABLET BY MOUTH EVERY DAY Active allopurinol (ZYLOPRIM) 100 MG tablet TAKE 1 TABLET BY MOUTH EVERY DAY 1 Active furosemide (LASIX) 40 MG tablet furosemide 40 mg tablet TAKE 1 TABLET BY MOUTH EVERY DAY Active atorvastatin (LIPITOR) 80 MG tablet atorvastatin 80 mg tablet TAKE 1 TABLET BY MOUTH DAILY Active gabapentin (NEURONTIN) 600 MG tablet gabapentin 600 mg tablet TAKE 2 TABLETS BY MOUTH TWICE DAILY Active aspirin 81 MG EC tablet Aspir-81 mg tablet,delayed release Take 1 tablet every day by oral route. Active insulin 70-30 (HUMULIN 70/30) (70-30) 100 UNIT per ML injection vial Humulin 70/30 U-100 Insulin 100 unit/mL subcutaneous suspension ADMINISTER 75 UNITS UNDER THE SKIN TWICE DAILY Active metoprolol succinate (TOPROL XL) 100 MG extended release tablet Take 100 mg by mouth daily Active losartan (COZAAR) 25 MG tablet Take 25 mg by mouth daily Active latanoprost (XALATAN) 0.005 % ophthalmic solution 1 drop nightly Activ e insulin lispro (HUMALOG) 100 UNIT/ML injection vial Inject into the skin 3 times daily (before meals) 10 units if needed Active Social History Tobacco Use Types Packs/Day Years Used Date Smoking Tobacco: Never Smokeless Tobacco: Never Alcohol Use Standard Drinks/Week Comments Never 0 (1 standard drink = 0.6 oz pur e alcohol) Sex and Gender Information Value Date Recorded Sex Assigned at Not on file Legal Sex Male 4:55 PM EST Gender Identity Not on file Sexual Orientation Not on file Last Filed Vital Signs Vital Sign Reading Time Taken Comments Blood Pressure 174/66 06/04/2021 7:20 PM EST Pulse 71 06/04/2021 7:12 PM EST Temperature 35.9 C (96.7 F) 06/04/2021 7:26 PM EST Respiratory Rate 16 06/04/2021 7:12 PM EST Oxygen Saturation 96% 06/04/2021 7:18 PM EST Inhaled Oxygen Concentration - - Weight - - Height - - Body Mass Index - - Plan of Treatment Not on file Insurance [employer] Care Teams Driller And Reamer Relationship Specialty Start Date End Date Josh Talavera MD [address] [place] [address] PCP - General Family Medicine 06/04/21
--- OUTSIDE RECORDS SUMMARY | 2024-11-24 10:03 | XMS_ITS | Clinical Summary ---
Author Organization [facility] tem Address [id number] [address] [place] [address] Care Team Providers Care Wage Hand Name Role Phone Josh Talavera Devon ADAM Primary Care Provider [phone] Allergies No known active allergies Medications multivit-min/fe rrous fumarate (MULTI VITAMIN ORAL) Multi Vitamin Active allopurinoL (ZYLOPRIM) 100 mg tablet Take 100 mg by mouth daily. 0 Active aspirin 81 mg daily. Active atorvastatin (LIPITOR) 80 mg tablet atorvastatin 80 mg tablet Active ezetimibe-simva statin (VYTORIN) 10-20 mg per tablet daily. Active furosemide (LASIX) 40 mg tablet Take 40 mg by mouth daily. 0 Active gabapentin (NEURONTIN) 600 mg tablet gabapentin 600 mg tablet Active hydroCHLOROthia zide (HYDRODIURIL) 25 mg tablet daily. Active lisinopriL (PRINIVIL,ZESTR IL) 20 mg tablet daily. Active losartan (COZAAR) 50 mg tablet losartan 50 mg tablet Active metoprolol tartrate (LOPRESSOR) 25 mg tablet metoprolol tartrate 25 mg tablet Active amLODIPine-ator vastatin (CADUET) 10-10 mg per tablet Take 1 tablet by mouth daily. Active latanoprost (XALATAN) 0.005 % ophthalmic solution 1 drop nightly. Acti ve Active Problems No known active problems Social History Tobacco Use Types Packs/Day Years Used Date Smoking Tobacco: Never Smokeless Tobacco: Never Childcare Answer Date Recorded Childcare Unknown 04/25/2020 Employment Answer Date Recorded Employment Unknown 04/25/2020 Purpose - Life Answer Date Recorded Purpose and direction in life Unknown Sex and Gender Information Value Date Recorded Sex Assigned at Not on file Legal Sex Male 11:24 AM EDT Gender Identity Not on file Sexual Orientation Not on file Last Filed Vital Signs Vital Sign Reading Time Taken Comments Blood Pressure 158/78 05/31/2020 10:03 AM EST Pulse - - Temperature 36.6 C (97.8 F) 05/31/2020 10:03 AM EST Respiratory Rate - - Oxygen Saturation - - Inhaled Oxygen Concentration - - Weight 145.2 kg (320 lb) 05/31/2020 10:03 AM EST Height 175.3 cm (5' 9 ) 05/31/2020 10:03 AM EST Body Mass Index 47.26 05/31/2020 10:03 AM EST Plan of Treatment Health Maintenance Due Date Last Done Comments Depression Screening 1966 Tobacco Screening 1966 Adult BMI Screening 1972 DTaP,Tdap and Td Vaccines (1 - Tdap) 1973 Zoster (Shingles) Vaccine (1 of 2) 2004 Fall Risk Screening 2019 Influenza Vaccine 03/07/2025 Colonoscopy 05/24/2030 05/24/2020 Medical Devices Not on file Insurance [employer] Care Teams Wage Hand Relationship Specialty Start Date End Date Josh Talavera DO [address] [place] [address] PCP - General Family Medicine 05/31/20
--- OUTSIDE RECORDS SUMMARY | 2024-11-24 10:04 | XMS_ITS | CCD ---
Author Organization [facility] Inform ion Partnership [facility] Care Team Providers Care Assembly Associate Name Role Phone Sea Voss Admitting Unavailable Sea Voss Attending Unavailable JOSH PRO Primary Care Unavailable CRIS HERRING Referring Unavailable CO Procedure Practitioner Unavailab REEMA Moreira ABD Surgeon Unavailable CO Procedure Practitioner Unavailab CYNTHIA Moreno Surgeon Unavailable CO Procedure Practitioner Unavailab Sea Espinoza Surgeon Unavailable Josh Pro MD Primary Care Provider JOSH PRO Primary Care Unavailable LATOYA MOYER Attending Unavailable PRO, DR JOSH Osorio Primary Care Unavailable PRO, DR JOSH Osorio Admitting Unavailable PRO, DR JOSH Osorio Attending Unavailable PRO, DR JOSH Osorio Consulting Unavailable PRO, DR JOSH Osorio Primary Care Unavailable MOUKAMARK, DR LAZARO Attending Unavailable SO, DR LAZARO Consulting Unavailable MOUKASANTINOEL, DR LAZARO Admitting Unavailable JEFFRY GARCES Attending Unavailable JEFFRY GARCES Attending Unavailable Unavailable Primary Care Provider UnavailTEJAS Ann Attending Unavailable MICH HEWITT Attending Unavailable Josh Pro MD Primary Care Provider [phone] JEFFRY GARCES Attending Unavailable JEFFRY GARCES Attending Unavailable JEFFRY GARCES Attending Unavailable JEFFRY GARCES Attending Unavailable JEFFRY GARCES Attending Unavailable Allergies Allergy Classification Reported Allergen(s) Allergy Type Date of Onset Reaction(s) Facility (1 source) 80820,00; Translations: [Unknown] Propensity to adverse reactions (disorder) 9 [facility] Medications Current Medications Medication Drug Class(es) Dates Sig (Normalized) Sig (Original) allopurinol 100 mg oral tablet (14 sources) Xanthine Oxidase Inhibitor Start: 03-28-2021 take 1 tablet by mouth once daily allopurinol (ZYLOPRIM) 100 MG tablet TAKE 1 TABLET BY MOUTH EVERY DAY 0 03/28/2021 Active amLODIPine 10 mg oral tablet (14 sources) Dihydropyridine Calcium Channel Sondra Start: 06-03-2022 take 1 tablet by mouth in the morning amLODIPine (Norvasc) 10 MG tablet Take 10 mg by mouth in the morning. 06/03/2022 Active take 1 tablet by mouth once catalina y amLODIPine (NORVASC) 10 MG tablet amlodipine 10 mg tablet TAKE 1 TABLET BY MOUTH EVERY DAY 0 Active amoxicillin 500 mg oral tablet (7 sources) Penicillin-class Antibacterial Start: 09-20-2024 take 4 tablets by mouth once at mealtime amoxicillin (Amoxil) 500 MG tablet Indications: History of total knee replacement, unspecified laterality 4 tabs PO once 30-60 mins before procedure with food 4 tablet 3 10/19/2024 Active aspirin 81 mg delayed release oral tablet (14 sources) Platelet Aggregation Inhibitor, Nonsteroidal Anti-inflammatory Drug take 1 tablet by mouth in the morning aspirin 81 MG EC tablet Take 81 mg by mouth in the morning. Active atorvastatin 80 mg oral tablet (14 sources) HMG-CoA Reductase Inhibitor Start: 01-29-2023 take 1 tablet by mouth in the morning atorvastatin (Lipitor) 80 MG tablet Take 80 mg by mouth in the morning. 01/29/2023 Active take 1 tablet by mouth once catalina y atorvastatin (LIPITOR) 80 MG tablet atorvastatin 80 mg tablet TAKE 1 TABLET BY MOUTH DAILY 0 Active celecoxib 200 mg oral capsule (13 sources) Nonsteroidal Anti-inflammatory Drug take 1 capsule by mouth every twelve hours celecoxib (CeleBREX) 200 MG capsule Take 200 mg by mouth every 12 (twelve) hours. Active ezetimibe 10 mg / simvastatin 20 mg oral tablet (13 sources) HMG-CoA Reductase Inhibitor, Dietary Cholesterol Absorption Inhibitor take 1 tablet by mouth in the morning ezetimibe-simvastat in (Vytorin) 10-20 MG tablet Take 1 tablet by mouth in the morning. Active furosemide 40 mg oral tablet (14 sources) Loop Diuretic take 1 tablet by mouth in the morning furosemide (Lasix) 40 MG tablet Take 40 mg by mouth in the morning. Active gabapentin 600 mg oral tablet (14 sources) Anti-epileptic Agent take 1 tablet by mouth in the morning gabapentin (Neurontin) 600 MG tablet Take 600 mg by mouth in the morning. Active take 2 tablets by mouth twice da earl gabapentin (NEURONTIN) 600 MG tablet gabapentin 600 mg tablet TAKE 2 TABLETS BY MOUTH TWICE DAILY 0 Active hydrALAZINE hydrochloride 50 mg oral tablet (13 sources) Arteriolar Vasodilator take 1 tablet by mouth in the morning hydrALAZINE (Apresoline) 50 MG tablet Take 50 mg by mouth in the morning and 50 mg before bedtime. Active hydroCHLOROthiazide 25 mg oral tablet (13 sources) Thiazide Diuretic take 1 tablet by mouth in the morning hydroCHLOROthiazide (HYDRODiuril) 25 MG tablet Take 25 mg by mouth in the morning. Active insulin detemir 100 unt/ml injectable solution (13 sources) Insulin Analog insulin detemir (Levemir) 100 UNIT/ML injection Inject 100 mL under the skin in the morning. Active insulin glargine-yfgn (Semglee-yfgn) 100 UNIT/ML pen (13 sources) insulin glargine -yfgn (Semglee-yfgn) 100 UNIT/ML pen ADMINISTER 75 UNITS UNDER THE SKIN TWICE DAILY Active insulin isophane, human 70 unt/ml / insulin, regular, human 30 unt/ml injectable suspension (14 sources) Insulin insulin NPH-insu crow regular (HumuLIN 70/30) (70-30) 100 UNIT/ML injection Inject 100 mL under the skin in the morning. Active inject 75 [IU] by skinner bcutaneous injection twice daily, then inject 100 [IU] by subcutaneous injection once insulin 70-30 (HUMULIN 70/30) (70-30) 10 0 UNIT per ML injection vial Humulin 70/30 U-100 Insulin 100 unit/mL subcutaneous suspension ADMINISTER 75 UNITS UNDER THE SKIN TWICE DAILY 0 Active insulin lispro 100 unt/ml injectable solution (1 source) Insulin Analog insulin lispro (HUMALOG) 100 UNIT/ML injection vial Inject into the skin 3 times daily (before meals) 10 units if needed 0 Active latanoprost 0.05 mg/ml ophthalmic solution (14 sources) Prostaglandin Analog take 1 drop(s) into the eye(s) once daily latanoprost (Xalatan) 0.005 % ophthalmic solution Administer 1 drop into both eyes 1 (one) time each day at the same time. Active take 1 drop(s) into the eye(s) once daily latanoprost (XALATAN) 0.005 % ophthalmic solution 1 drop nightly 0 Active lisinopril 20 mg oral tablet (13 sources) Angiotensin Converting Enzyme Inhibitor take 1 tablet by mouth in the morning lisinopril 20 MG tablet Take 1 tablet by mouth in the morning. Active losartan potassium 50 mg oral tablet (14 sources) Angiotensin 2 Receptor Sondra take 1 tablet by mouth in the morning losartan (Cozaar) 50 MG tablet Take 50 mg by mouth in the morning. Active take 1 tablet by mouth once catalina y losartan (COZAAR) 25 MG tablet Take 25 mg by mouth daily 0 Active metoprolol tartrate 50 mg oral tablet (16 sources) beta-Adrenergic Sondra Start: 04-16-2021 take 1 [...] disease (2 sources) Atherosclerotic heart disease of [place] coronary artery without angina pectoris; Translations: [Atherosclerotic heart disease of [place] coronary artery without angina pectoris] Onset: 06-25-2023 Chronic Diabetes mellitus with complications (20 sources) Diabetic mononeuropathy; Translations: [Type 2 diabetes mellitus with diabetic mononeuropathy] Onset: 11-27-2022 11-27-2022 Chronic Disorders of lipid metabolism (5 sources) Mixed hyperlipidemia; Translations: [Other hyperlipidemia] Onset: 04-11-2022 Chronic Essential hypertension (3 sources) Essential (primary) hypertension; Translations: [ESSENTIAL PRIMARY HYPERTENSION] Onset: 04-11-2022 Chronic Gout and other crystal arthropathies (4 sources) Gout, unspecified; Translations: [GOUT UNSPECIFIED] Onset: 04-08-2022 Chronic Hypertension with complications and secondary hypertension (2 sources) Hypertensive heart disease with heart failure; Translations: [Hypertensive heart disease with heart failure] Onset: 06-16-2024 Chronic Mycoses (8 sources) Pain in toe; Translations: [Tinea unguium] 04-30-2024 Episodic Other connective tissue disease (1 source) History of total knee arthroplasty; Translations: [Presence of unspecified artificial knee joint] 09-20-2024 Chronic Other endocrine disorders (1 source) Hypoglycemia; Translations: [Hypoglycemia, unspecified] Chronic Other screening for suspected conditions (not mental disorders or infectious disease) (1 source) Encounter for screening for malignant neoplasm of prostate; Translations: [ENC SCREEN MALIG NEOPLASM PROSTATE] Onset: 04-11-2022 Episodic Past or Other Problems Problem Classification Problem Date Documented Date Episodic/Chronic Other connective tissue disease (2 sources) Pain of toes of bilateral feet; Translations: [Pain in right toe(s)] 02-22-2024 Episodic Other diseases of veins and lymphatics (13 sources) Peripheral venous insufficiency; Translations: [Venous insufficiency (chronic) (peripheral)] Onset: 11-27-2022 11-27-2022 Episodic Results Test Name Value Interpretation Reference Range Facility Office Visiton 06-16-2024 Follow-up visit [id number] Mackenzie Dumont 1955 M Date Provider Department Center 06/16/2024 MICH MOREJON JERICHO Reyna [facility] Family History Problem Relation Age of Onset Coronary artery disease Brother Other Brother Family Status - Relation Status Age at Brother Level of Service:87375 CO OFFICE/OUTPATIENT ESTABLISHED LOW MDM 20 MIN Reason for Visit and Comments: Coronary Artery Disease [187] Congestive Heart Failure [127] Hypertension [941876] Normal [facility] Office Visiton 06-25-2023 Follow-up visit [id number] Mackenzie Dumont 1955 M Date Provider Department Center 06/25/2023 TEJAS ROJAS [facility] Family History Problem Relation Age of Onset Coronary artery disease Brother Other Brother Family Status - Relation Status Age at Brother Level of Service:85657 CO OFFICE/OUTPATIENT ESTABLISHED LOW MDM 20 MIN Normal [facility] LIPID PROFILEon 04-08-2022 CHOL-HDL RATIO NORM SEE BELOW Normal [facility] Comment on above: Result Comment: 3.3 - 4.4 LOW RISK 4.4 - 7.1 AVERAGE RISK 7.1 - 11.0 MODERATE RISK >11.0 HIGH RISK Performed By: #### U SHILA, LIPID, CMP #### [facility] [address] [address] [address] Constantin Yepez Cholesterol [Mass/Vol] 127 mg/dL Normal <=200 [facility] Comment on above: Performed By: #### U SHILA, LIPID, CMP #### [facility] [address] [address] [address] Constantin Yepez Cholesterol in HDL [Mass/Vol] 39 mg/dL Critically low 40-60 [facility] Comment on above: Performed By: #### U SHILA, LIPID, CMP #### [facility] [address] [address] [address] Constantin Yepez Cholesterol in LDL [Mass/Vol] 65.0 mg/dL Normal [facility] Comment on above: Performed By: #### U SHILA, LIPID, CMP #### [facility] [address] [address] [address] Constantin Yepez Cholesterol.total/Chol esterol in HDL [Mass ratio] 3.3 {ratio} Normal [facility] Comment on above: Performed By: #### U SHILA, LIPID, CMP #### [facility] [address] [address] [address] Constantin Yepez HDL NORMAL > or = 60 mg/dl - LOW CARDIOVASCULAR RISK <40 mg/dl - HIGH CARDIOVASCULAR RISK Normal [facility] Comment on above: Performed By: #### U SHILA, LIPID, CMP #### [facility] [address] [address] [address] Constantin Yepez LDL CALC NORMAL SEE BELOW Normal [facility] Comment on above: Result Comment: <100 mg/dl OPTIMAL 100 - 129 mg/dl NEAR OR ABOVE OPTIMAL 130 - 159 mg/dl BORDERLINE HIGH 160 - 189 mg/dl HIGH >190 mg/dl VERY HIGH Performed By: #### U SHILA, LIPID, CMP #### [facility] [address] [address] [address] Constantin Yepez Triglyceride [Mass/Vol] 115 mg/dL Normal <=150 [facility] Comment on above: Performed By: #### U SHILA, LIPID, CMP #### [facility] [address] [address] [address] Constantin Yepez VLDL CALC 23.0 mg/dL Normal [facility] Comment on above: Performed By: #### U SHILA, LIPID, CMP #### [facility] [address] [address] [address] Constantin Yepez PROF 14(COMP METB)on 022 Albumin [Mass/Vol] 3.4 g/dL Normal 3.4-5.0 [facility] Comment on above: Performed By: #### U SHILA, LIPID, CMP #### [facility] [address] [place] [address] Dr. Constantin Yepez Albumin/Globulin [Mass ratio] 1.0 {ratio} Normal [facility] Comment on above: Performed By: #### U SHILA, LIPID, CMP #### [facility] [address] [address] [address] Constantin Yepez ALP [Catalytic activity/Vol] 66 U/L Normal 46-116 [facility] Comment on above: Performed By: #### U SHILA, LIPID, CMP #### [facility] [address] [address] [address] Constantin Yepez ALT [Catalytic activity/Vol] 28 U/L Normal 16-63 [facility] Comment on above: Performed By: #### U SHILA, LIPID, CMP #### [facility] [address] [address] [address] Constantin Yepez Anion gap [Moles/Vol] 11.6 mmol/L Normal [facility] Comment on above: Performed By: #### U SHILA, LIPID, CMP #### [facility] [address] [address] [address] Constantin Yepez AST [Catalytic activity/Vol] 13 U/L Critically low 15-37 [facility] Comment on above: Performed By: #### U SHILA, LIPID, CMP #### [facility] [address] [place] [address] Dr. Constantin Yepez Bilirubin [Mass/Vol] 0.5 mg/dL Normal 0.2-1.0 [facility] Comment on above: Performed By: #### U SHILA, LIPID, CMP #### [facility] [address] [place] [address] Dr. Constantin Yepez Calcium [Mass/Vol] 8.6 mg/dL Normal 8.5-10.1 [facility] Comment on above: Performed By: #### U SHILA, LIPID, CMP #### [facility] [address] [place] [address] Dr. Constantin Yepez Chloride [Moles/Vol] 108 mmol/L Critically high 98-107 [facility] Comment on above: Performed By: #### U SHILA, LIPID, CMP #### [facility] [address] [place] [address] Dr. Constantin Yepez CO2 [Moles/Vol] 30.0 mmol/L Normal 21.0-32.0 [facility] Comment on above: Performed By: #### U SHILA, LIPID, CMP #### [facility] [address] [address] [address] Constantin Yepez Creatinine [Mass/Vol] 1.39 mg/dL Critically high 0.70-1.30 [facility] Comment on above: Performed By: #### U SHILA, LIPID, CMP #### [facility] [address] [address] [address] Constantin Yepez EGFR-AF SOMALI >60 Normal >=60 [facility] Comment on above: Performed By: #### U SHILA, LIPID, CMP #### [facility] [address] [address] [address] Constantin Yepez EGFR-NON AF SOMALI 51 mL/min/1.73m2 Critically low >=60 [facility] Comment on above: Performed By: #### U SHILA, LIPID, CMP #### [facility] [address] [address] [address] Constantin Yepez Globulin (S) [Mass/Vol] 3.5 g/dL Normal [facility] Comment on above: Performed By: #### U SHILA, LIPID, CMP #### [facility] [address] [address] [address] Constantin Yepez Glucose [Mass/Vol] 77 mg/dL Normal 74-106 [facility] Comment on above: Performed By: #### U SHILA, LIPID, CMP #### [facility] [address] [address] [address] Constantin Yepez Potassium [Moles/Vol] 3.6 mmol/L Normal 3.5-5.1 [facility] Comment on above: Performed By: #### U SHILA, LIPID, CMP #### [facility] [address] [address] [address] Constantin Yepez Protein [Mass/Vol] 6.9 g/dL Normal 6.4-8.2 [facility] Comment on above: Performed By: #### U SHILA, LIPID, CMP #### [facility] [address] [address] [address] Constantin Yepez Sodium [Moles/Vol] 146 mmol/L Critically high 136-145 [facility] Comment on above: Performed By: #### U SHILA, LIPID, CMP #### [facility] [address] [address] [address] Constantin Yepez Urea nitrogen [Mass/Vol] 24.0 mg/dL Critically high 7.0-18.0 [facility] Comment on above: Performed By: #### U SHILA, LIPID, CMP #### [facility] [address] [address] [address] Constantin Yepez Urea nitrogen/Creatinine [Mass ratio] 17.3 mg/mg Normal [facility] Comment on above: Performed By: #### U SHILA, LIPID, CMP #### [facility] [address] [address] [address] Constantin Yepez URIC ACID SERUMon 04-08-2022 Urate [Mass/Vol] 6.3 mg/dL Normal 3.5-7.2 [facility] Comment on above: Performed By: #### U SHILA, LIPID, CMP #### [facility] [address] [address] [address] Constantin Yepez PROF CHEM 8 (BAS METB)on Anion gap [Moles/Vol] 7.6 mmol/L Normal [facility] Comment on above: Performed By: #### B MP #### [facility] [address] [place] [address] Dr. Constantin Yepez Calcium [Mass/Vol] 8.3 mg/dL Critically low 8.5-10.1 [facility] Comment on above: Performed By: #### B MP #### [facility] [address] [place] [address] Dr. Constantin Yepez Chloride [Moles/Vol] 107 mmol/L Normal 98-107 [facility] Comment on above: Performed By: #### B MP #### [facility] [address] [place] [address] Dr. Constantin Yepez CO2 [Moles/Vol] 31.9 mmol/L Normal 21.0-32.0 [facility] Comment on above: Performed By: #### B MP #### [facility] [address] [place] [address] Dr. Constantin Yepez Creatinine [Mass/Vol] 1.62 mg/dL Critically high 0.70-1.30 [facility] Comment on above: Performed By: #### B MP #### [facility] [address] [address] [address] Constantin Yepez EGFR-AF SOMALI 52 mL/min/1.73m2 Critically low >=60 [facility] Comment on above: Performed By: #### B MP #### [facility] [address] [address] [address] Constantin Yepez EGFR-NON AF SOMALI 43 mL/min/1.73m2 Critically low >=60 [facility] Comment on above: Performed By: #### B MP #### [facility] [address] [address] [address] Constantin Yepez Glucose [Mass/Vol] 97 mg/dL Normal 74-106 [facility] Comment on above: Performed By: #### B MP #### [facility] [address] [address] [address] Constantin Yepez Potassium [Moles/Vol] 4.5 mmol/L Normal 3.5-5.1 [facility] Comment on above: Performed By: #### B MP #### [facility] [address] [address] [address] Constantin Yepez Sodium [Moles/Vol] 142 mmol/L Normal 136-145 [facility] Comment on above: Performed By: #### B MP #### [facility] [address] [address] [address] Constantin Yepez Urea nitrogen [Mass/Vol] 30.0 mg/dL Critically high 7.0-18.0 [facility] Comment on above: Performed By: #### B MP #### [facility] [address] [address] [address] Constantin Yepez Urea nitrogen/Creatinine [Mass ratio] 18.5 mg/mg Normal [facility] Comment on above: Performed By: #### B MP #### [facility] [id number] Constantin Yepez Arterial Blood Gaseson 06-04 Cr Test PASS Normal [facility] Comment on above: Performed By: #### A BG #### [facility] [address] [place] [address] [employer] Worker [employer]: Stevan Kerns MD Body Temp. 37.0 Normal [facility] Comment on above: Performed By: #### A BG #### [facility] [address] [place] [address] [employer] Work[employer]: Stevan Kerns MD HCO3 (Bld) [Moles/Vol] 29.7 mmol/L High 22-26 M [facility] Comment on above: Performed By: #### A BG #### [facility] [address] [place] [id number] [employer] Work[employer]: Stevan Kerns MD O2 Device/Flow/% O2 Mask Normal [facility] Comment on above: Performed By: #### A BG #### [facility] [address] [place], [place] [id number] [employer] Work[employer]: Stevan Kerns MD Oxygen (Bld) [Partial pressure] 87.4 mm[Hg] Normal 80-100 [facility] Comment on above: Performed By: #### A BG #### [facility] [address] [place] [address] Har[employer] Worker [employer]: Stevan Kerns MD Oxygen saturation in Blood 96.1 % Normal 95-98 [facility] Comment on above: Performed By: #### A BG #### [facility] [address] [place] [id number] [employer] Worker [employer]: Stevan Kerns MD pCO2 55.2 mmHg High 35-45 [facility] Comment on above: Performed By: #### A BG #### [facility] [address] [place] [address] [employer] Work[employer]: Stevan Kerns MD pH (Bld) 7.348 [pH] Low 7.35-7.45 [facility] Comment on above: Performed By: #### A BG #### [facility] [address] [place] [address] [employer] Worker [employer]: Stevan Kenrs MD Positive Base Excess 2.6 mmol/L High 0.0-2.0 [facility] Comment on above: Performed By: #### A BG #### [facility] [address] [place], [place] [id number] [employer] Work[employer]: Stevan Kerns MD Pt. Position SUPINE Normal [facility] Comment on above: Performed By: #### A BG #### [facility] [address] [place], [place] [id number] [employer] Work[employer]: Stevan Kerns MD Site Drawn Left Brachial Artery Normal [facility] Comment on above: Performed By: #### A BG #### [facility] [address] [place] [address] Dr. [place], [place] [id number] [employer] Work[employer]: Stevan Kerns MD Carboxy Hgb NOT REPORTED Normal 0-5 [facility] Comment on above: Performed By: #### A BG #### [facility] [address] [place], [place] [id number] [employer] Worker [employer]: Stevan Kerns MD FIO2 NOT REPORTED Normal [facility] Comment on above: Performed By: #### A BG #### [facility] [address] [place] [address] Dr. [place], [place] [id number] [employer] Worker [employer]: Stevan Kerns MD Methemoglobin NOT REPORTED Normal 0.0-1.9 [facility] Comment on above: Performed By: #### A BG #### [facility] [address] [place] [address] [employer] Worker [employer]: Stevan Kerns MD Mode NOT REPORTED Normal [facility] Comment on above: Performed By: #### A BG #### [facility] [address] [place], [place] [id number] [employer] Worker [employer]: Stevan Kerns MD Negative Base Excess NOT REPORTED Normal 0.0-2.0 [facility] Comment on above: Performed By: #### A BG #### [facility] [address] [place], [place] [phone] [employer] Worker [employer]: Stevan Kerns MD Notification Time NOT REPORTED Normal [facility] Comment on above: Performed By: #### A BG #### [facility] [address] [place], [place] [id number] [employer] Worker [employer]: Stevan Kerns MD Notification: NOT REPORTED Normal [facility] Comment on above: Performed By: #### A BG #### [facility] [address] [place], [place] [phone] [employer] Worker [employer]: Stevan Kerns MD Oxyhemoglobin NOT REPORTED Normal 95.0-98.0 [facility] Comment on above: Performed By: #### A BG #### [facility] [address] [place] [address] Har[employer] Worker [employer]: Stevan Kerns MD pCO2 Adj'd for Temp NOT REPORTED Normal [facility] Comment on above: Performed By: #### A BG #### [facility] [address] [place] [address] [employer] Worker [employer]: Stevan Kerns MD PEEP/CPAP NOT REPORTED Normal [facility] Comment on above: Performed By: #### A BG #### [facility] [address] [place] [address] [place] [address] [employer] Worker [employer]: Stevan Kerns MD pH Adjst'd for Temp. NOT REPORTED Normal 7.350-7.450 M [facility] Comment on above: Performed By: #### A BG #### [facility] [address] [place] [address] [employer] Work[employer]: Stevan Kerns MD pO2 Adjst'd for Temp NOT REPORTED Normal 80.0-100.0 [facility] Comment on above: Performed By: #### A BG #### [facility] [address] [place], [place] [id number] [employer] Work[employer] Fruit: Stevan Kerns MD PSV NOT REPORTED Normal [facility] Comment on above: Performed By: #### A BG #### [facility] [address] [place] [address] [place] [address] [employer] Work[employer]: Stevan Kerns MD Respiratory Rate NOT REPORTED Normal [facility] Comment on above: Performed By: #### A BG #### [facility] [address] [place] [address] [employer] Work[employer]: Stevan Kerns MD Set Rate NOT REPORTED Normal [facility] Comment on above: Performed By: #### A BG #### [address] [place] [address] [employer] Work[employer]: Stevan Kerns MD Text for Respiratory NOT REPORTED Normal [facility] Comment on above: Performed By: #### A BG #### [facility] [address] [place] [address] Dr. [place], [facility]83 Har[employer] Work[employer] Fruit: Stevan Kerns MD Total Hb NOT REPORTED Normal 12.0-16.0 [facility] Comment on above: Performed By: #### A BG #### [address] [place], [facility]83 [employer] Work[employer]: Stevan Kerns MD Total Rate NOT REPORTED Normal [facility] Comment on above: Performed By: #### A BG #### [facility] [address] [place] [address] Dr. [place], [facility]83 [employer] Work[employer] Fruit: Stevan Kerns MD [place] NOT REPORTED Normal [facility] Comment on above: Performed By: #### A BG #### [address] [place] [address] [employer] Worker [employer]: Stevan Kerns MD Blood Gas, Arterialon 2020 Cr Test PASS [facility] Carboxyhemoglobin NOT REPORTED 0 - 5 % [facility] Comment on above: FIO2 NOT REPORTED [facility] HCO3 (Bld) [Moles/Vol] 29.7 mmol/L High 22 - 26 mmol/L [facility] Interpretation and review of laboratory results Abnormal [facility] Methemoglobin NOT REPORTED 0.0 - 1.9 % [facility] alth Mode NOT REPORTED [facility] Negative Base Excess, Art NOT REPORTED 0.0 - 2.0 mmol/L [facility] NOTIFICATION NOT REPORTED [facility] NOTIFICATION TIME NOT REPORTED [facility] O2 Device/Flow/% O2 Mask [facility] Oxygen saturation in Blood 96.1 % 95 - 98 % [facility] Oxyhemoglobin NOT REPORTED 95.0 - 98.0 % [facility] pCO2, Art, Temp Adj NOT REPORTED [facility] pCO2, Arterial 55.2 High [facility] Peep/Cpap NOT REPORTED [facility] pH, Art, Temp Adj NOT REPORTED [facility] pH, Arterial 7.348 Low [facility] pO2, Art, Temp Adj NOT REPORTED [facility] pO2, Arterial 87.4 [facility] h Positive Base Excess, Art 2.6 mmol/L High 0.0 - 2.0 mmol/L [facility] PSV NOT REPORTED [facility] Pt Temp 37.0 [facility] Pt. Position SUPINE [facility] Respiratory Rate NOT REPORTED [facility] Sample Site Left Brachial Artery [facility] Set Rate NOT REPORTED [facility] Text for Respiratory NOT REPORTED [facility] Total Hb NOT REPORTED 12.0 - 16.0 g/dl [facility] Total Rate NOT REPORTED [facility] [place] NOT REPORTED [facility] CBC Auto Differentialon 11-2 Absolute Eos # 0.20 [facility] Absolute Immature Granulocyte 0.06 [facility] Absolute Lymph # 3.98 High [facility] alth Absolute [place] # 1.22 High [facility] lth Basophils (Bld) [#/Vol] 0.05 10*3/uL [facility] Basophils/100 WBC (Bld) 0 % 0 - 2 % [facility] Differential Type NOT REPORTED [facility] Eosinophils/100 WBC (Bld) 1 % 1 - 4 % [facility] Hematocrit (Bld) [Volume fraction] 45.3 % 40.7 - 50.3 % [facility] Hemoglobin.gastrointes tinal spec 1 Ql (Stl) 14.7 g/dL 13.0 - 17.0 g/dL [facility] Immature granulocytes/100 WBC (Bld) 0 % 0 [facility] Interpretation and review of laboratory results Abnormal [facility] Lymphocytes/100 WBC (Bld) 25 % 24 - 43 % [facility] MCH (RBC) [Entitic mass] 29.5 pg 25.2 - 33.5 pg [facility] MCHC (RBC) [Mass/Vol] 32.5 g/dL 28.4 - 34.8 g/dL [facility] MCV (RBC) [Entitic vol] 91.0 fL 82.6 - 102.9 fL [facility] Monocytes/100 WBC (Bld) 8 % 3 - 12 % [facility] NRBC Automated 0.0 0.0 per 100 WBC [facility] Platelet distribution width (Bld) [Ratio] 12.6 % 11.8 - 14.4 % [facility] Platelet Estimate NOT REPORTED [facility] Platelet mean volume (Bld) [Entitic vol] 9.3 fL 8.1 - 13.5 fL [facility] Platelets (Bld) [#/Vol] 195 10*3/uL [facility] RBC (Bld) [#/Vol] 4.98 10*6/uL 4.21 - 5.7 7 m/uL [facility] RBC (Bld) [#/Vol] NOT REPORTED [facility] Segmented neutrophils/100 WBC (Bld) 66 % High 36 - 65 % [facility] Segs Absolute 10.73 [facility] [#/Vol] 16.2 10*3/uL High [facility] WBC (Bld) [#/Vol] NOT REPORTED [facility] CBC with Diffon 06-04-2021 Abs. Basophil 0.05 k/uL Normal 0.00-0.20 [facility] Comment on above: Performed By: #### C MPX, TROPI, PT, CDP, MG #### [facility] [address] [place] [address] [employer] Work[employer]: Stevan Kerns MD Abs.Imm.Granulocyte 0.06 k/uL Normal 0.00-0.30 [facility] Comment on above: Performed By: #### C MPX, TROPI, PT, CDP, MG #### [facility] [address] [place], [place] [address] [employer] Work[employer]: Stevan Kerns MD Abs.Neutrophil (Seg) 10.73 k/uL High 1.50-8.10 [facility] Comment on above: Performed By: #### C MPX, TROPI, PT, CDP, MG #### [facility] [address] [place], [facility]83 [employer] Work[employer]: Stevan Kerns MD Basophils/100 WBC (Bld) 0 % Normal 0-2 [facility] Comment on above: Performed By: #### C MPX, TROPI, PT, CDP, MG #### [address] [place] [address] [employer] Work[employer]: Stevan Kerns MD Eosinophils (Bld) [#/Vol] 0.20 10*3/uL Normal 0.00-0.44 [facility] Comment on above: Performed By: #### C MPX, TROPI, PT, CDP, MG #### [address] [place], [facility]83 [employer]: Stevan Kerns MD Eosinophils/100 WBC (Bld) 1 % Normal 1-4 [facility] Comment on above: Performed By: #### C MPX, TROPI, PT, CDP, MG #### [address] [place], [place] [address] [employer]: Stevan Kerns MD Erythrocyte distribution width (RBC) [Ratio] 12.6 % Normal 11.8-14.4 [facility] Comment on above: Performed By: #### C MPX, TROPI, PT, CDP, MG #### [address] [place] [address] [employer]: Stevan Kerns MD Hematocrit (Bld) [Volume fraction] 45.3 % Normal 40.7-50.3 [facility] Comment on above: Performed By: #### C MPX, TROPI, PT, CDP, MG #### [facility] [address] [place], [place] [id number] [employer] Work[employer]: Stevan Kerns MD Hemoglobin (Bld) [Mass/Vol] 14.7 g/dL Normal 13.0-17.0 [facility] Comment on above: Performed By: #### C MPX, TROPI, PT, CDP, MG #### [facility] [address] [place], [facility]83 [employer] Work[employer]: Stevan Kerns MD Immature granulocytes/100 WBC (Bld) 0 % Normal 0 [facility] Comment on above: Performed By: #### C MPX, TROPI, PT, CDP, MG #### [address] [place] [facility]83 [employer] Work[employer]: Stevan Kerns MD Lymphocytes (Bld) [#/Vol] 3.98 10*3/uL High 1.10-3.70 [facility] Comment on above: Performed By: #### C MPX, TROPI, PT, CDP, MG #### [address] [place], [place] [address] [employer] Work[employer]: Stevan Kerns MD Lymphocytes/100 WBC (Bld) 25 % Normal 24-43 [facility] Comment on above: Performed By: #### C MPX, TROPI, PT, CDP, MG #### [address] [place], [facility]83 [employer] Work[employer]: Stevan Kerns MD MCH (RBC) [Entitic mass] 29.5 pg Normal 25.2-33.5 [facility] Comment on above: Performed By: #### C MPX, TROPI, PT, CDP, MG #### [address] [place], [place] [id number] [employer] Worker [employer]: Stevan Kerns MD MCHC (RBC) [Mass/Vol] 32.5 g/dL Normal 28.4-34.8 [facility] Comment on above: Performed By: #### C MPX, TROPI, PT, CDP, MG #### [facility] [address] [place] [address] Dr. [place], [place] [id number] [employer] Work[employer]: Stevan Kerns MD MCV (RBC) [Entitic vol] 91.0 fL Normal 82.6-102.9 [facility] Comment on above: Performed By: #### C MPX, TROPI, PT, CDP, MG #### [address] [place], [place] [id number] [employer] Work[employer]: Stevan Kerns MD Monocytes (Bld) [#/Vol] 1.22 10*3/uL High 0.10-1.20 [facility] Comment on above: Performed By: #### C MPX, TROPI, PT, CDP, MG #### [address] [place], [facility]83 [employer] Work[employer]: Stevan Kerns MD Monocytes/100 WBC (Bld) 8 % Normal 3-12 [facility] Comment on above: Performed By: #### C MPX, TROPI, PT, CDP, MG #### [address] [place], [place] [id number] [employer] Work[employer]: Stevan Kerns MD Neutrophil (Seg) 66 % High 36-65 [facility] Comment on above: Performed By: #### C MPX, TROPI, PT, CDP, MG #### [address] [place] [address] [employer] Worker [employer]: Stevan Kerns MD NRBC Automated 0.0 per 100 WBC Normal 0.0 [facility] Comment on above: Performed By: #### C MPX, TROPI, PT, CDP, MG #### [address] [place] [address] [employer] Work[employer]: Stevan Kerns MD Platelet mean volume (Bld) [Entitic vol] 9.3 fL Normal 8.1-13.5 [facility] Comment on above: Performed By: #### C MPX, TROPI, PT, CDP, MG #### [address] [place], [place] [id number] [employer] Work[employer]: Stevan Kerns MD Platelets (Bld) [#/Vol] 195 10*3/uL Normal 138-453 [facility] Comment on above: Performed By: #### C MPX, TROPI, PT, CDP, MG #### [address] [place], [place] [id number] [employer] Worker [employer]: Stevan Kerns MD RBC (Bld) [#/Vol] 4.98 10*6/uL Normal 4.21-5.77 [facility] Comment on above: Performed By: #### C MPX, TROPI, PT, CDP, MG #### [address] [place], [place] [id number] Har[employer] Worker [employer]: Stevan Kerns MD WBC (Bld) [#/Vol] 16.2 10*3/uL High 3.5-11.3 [facility] Comment on above: Performed By: #### C MPX, TROPI, PT, CDP, MG #### [address] [place], [place] [id number] [employer] Worker [employer]: Stevan Kerns MD Auto Diff Performed NOT REPORTED Normal [facility] Comment on above: Performed By: #### C MPX, TROPI, PT, CDP, MG #### [address] [place], [place] [id number] Har[employer] Worker Fruit: Stevan Kerns MD Platelet Comment NOT REPORTED Normal [facility] Comment on above: Performed By: #### C MPX, TROPI, PT, CDP, MG #### [address] [place], [place] [id number] [employer] Work[employer]: Stevan Kerns MD RBC morphology finding Nom (Bld) NOT REPORTED Normal [facility] Comment on above: Performed By: #### C MPX, TROPI, PT, CDP, MG #### [facility] [address] [place] [address] Har[employer] Worker [employer]: Stevan Kerns MD WBC Morphology NOT REPORTED Normal [facility] Comment on above: Performed By: #### C MPX, TROPI, PT, CDP, MG #### [facility] [address] [place], [place] [id number] [employer] Worker Fruit: Stevan Kerns MD Comp Metabolic Pr/rfx MGon 08-04-2020 AST [Catalytic activity/Vol] 28 U/L Normal <40 [facility] Comment on above: Performed By: #### C MPX, TROPI, PT, CDP, MG #### [address] [place] [address] Har[employer] Worker [employer]: Stevan Kerns MD Glucose [Mass/Vol] 19 mg/dL Critically low 70-99 [facility] Comment on above: Performed By: #### C MPX, TROPI, PT, CDP, MG #### [address] [place] [address] Har[employer] Worker Fruit: Stevan Kerns MD Potassium [Moles/Vol] 3.4 mmol/L Low 3.7-5.3 [facility] Comment on above: Performed By: #### C MPX, TROPI, PT, CDP, MG #### [facility] [address] [place] [address] Har[employer] Worker [employer]: Stevan Kerns MD (cont.) Normal [facility] Comment on above: Result Comment: Aver age GFR for 60-69 years old: 85 mL/min/1.73sq m Chronic Kidney Disease: <60 mL/min/1.73sq m Kidney failure: <15 mL/min/1.73sq m eGFR calculated using average adult body mass. Additional eGFR calculator available at: http://www.globalrph.Positronics/multiple_crcl_2012.htm Performed By: #### C MPX, TROPI, PT, CDP, MG #### [facility] [address] [place] [address] Har[employer] Worker Fruit: Stevan Kerns MD Albumin [Mass/Vol] 4.5 g/dL Normal 3.5-5.2 [facility] Comment on above: Performed By: #### C MPX, TROPI, PT, CDP, MG #### [facility] [address] [place], [place] [id number] Har[employer] Worker Fruit: Stevan Kerns MD Albumin/Glob Ratio 1.2 Normal 1.0-2.5 [facility] Comment on above: Performed By: #### C MPX, TROPI, PT, CDP, MG #### [facility] [address] [place] [address] Har[employer] Worker Fruit: Stevan Kerns MD Alkaline Phos 98 U/L Normal 40-129 [facility] Comment on above: Performed By: #### C MPX, TROPI, PT, CDP, MG #### [address] [place] [address] Har[employer] Worker [employer]: Stevan Kerns MD ALT [Catalytic activity/Vol] 31 U/L Normal 5-41 [facility] Comment on above: Performed By: #### C MPX, TROPI, PT, CDP, MG #### [facility] [address] [place], [place] [id number] Har[employer] Worker Fruit: Stevan Kerns MD Anion gap [Moles/Vol] 13 mmol/L Normal 9-17 [facility] Comment on above: Performed By: #### C MPX, TROPI, PT, CDP, MG #### [facility] [address] [place] [address] Har[employer] Worker Fruit: Stevan Kerns MD Bilirubin [Mass/Vol] 0.36 mg/dL Normal 0.3-1.2 [facility] Comment on above: Performed By: #### C MPX, TROPI, PT, CDP, MG #### [facility] [address] [place] [address] Har[employer] Worker Fruit: Stevan Kerns MD BUN/CRE Ratio 19 Normal 9-20 [facility] Comment on above: Performed By: #### C MPX, TROPI, PT, CDP, MG #### [facility] [address] [place] [address] Har[employer] Worker Fruit: Stevan Kerns MD Calcium [Mass/Vol] 9.4 mg/dL Normal 8.6-10.4 [facility] Comment on above: Performed By: #### C MPX, TROPI, PT, CDP, MG #### [address] [place] [address] Har[employer] Worker Fruit: Stevan Kerns MD Chloride [Moles/Vol] 105 mmol/L Normal 98-107 [facility] Comment on above: Performed By: #### C MPX, TROPI, PT, CDP, MG #### [address] [place] [address] Har[employer] Worker Fruit: Stevan Kerns MD CO2 [Moles/Vol] 27 mmol/L Normal 20-31 [facility] Comment on above: Performed By: #### C MPX, TROPI, PT, CDP, MG #### [facility] [address] [place] [address] [place] [address] Harvest Worker Fruit: Stevan Kerns MD Creatinine [Mass/Vol] 1.78 mg/dL High 0.70-1.20 [facility] Comment on above: Performed By: #### C MPX, TROPI, PT, CDP, MG #### [facility] [address] [place] [address] Harvest Worker Fruit: Stevan Kerns MD GFR, Amer 47 mL/min Low >60 [facility] Comment on above: Performed By: #### C MPX, TROPI, PT, CDP, MG #### [facility] [address] [place] [address] [place] [address] Har[employer] Worker Fruit: Stevan Kerns MD GFR,non Amer 38 mL/min Low >60 [facility] Comment on above: Performed By: #### C MPX, TROPI, PT, CDP, MG #### [address] [place] [address] Har[employer] Worker Fruit: Stevan Kerns MD Protein [Mass/Vol] 8.3 g/dL Normal 6.4-8.3 [facility] Comment on above: Performed By: #### C MPX, TROPI, PT, CDP, MG #### [address] [place] [address] Har[employer] Worker Fruit: Stevan Kerns MD Sodium [Moles/Vol] 145 mmol/L High 135-144 [facility] Comment on above: Performed By: #### C MPX, TROPI, PT, CDP, MG #### [address] [place] [address] Har[employer] Worker Fruit: Stevan Kerns MD Staging: Normal [facility] Comment on above: Result Comment: Stag e 1: Some kidney damage normal GFR Stage 2: Mild kidney damage GFR 60-89 Stage 3: Moderate kidney damage GFR 30-59 Stage 4: Severe kidney damage GFR 15-29 Stage 5: Severe kidney damage GFR <15 ESRD - chronic treatment by dialysis or transplant Performed By: #### C MPX, TROPI, PT, CDP, MG #### [address] [place] [address] Har[employer] Worker Fruit: Stevan Kerns MD Urea nitrogen [Mass/Vol] 34 mg/dL High 8-23 [facility] Comment on above: Performed By: #### C MPX, TROPI, PT, CDP, MG #### [address] [place], [place] [id number] Harvest Worker Fruit: Stevan Kerns MD Comprehensive Metabolic Pane l w/ Reflex to MGon 06-04-2021 Albumin [Mass/Vol] 4.5 g/dL 3.5 - 5.2 g/dL [facility] Albumin/Globulin [Mass ratio] 1.2 {ratio} [facility] ALP (Bld) [Catalytic activity/Vol] 98 U/L 40 - 129 U/L [facility] ALT [Catalytic activity/Vol] 31 U/L 5 - 41 U/L [facility] Anion gap [Moles/Vol] 13 mmol/L 9 - 17 mmol/L [facility] AST [Catalytic activity/Vol] 28 U/L <40 [facility] Bilirubin [Mass/Vol] 0.36 mg/dL 0.3 - 1 .2 mg/dL [facility] Calcium [Mass/Vol] 9.4 mg/dL 8.6 - 10. 4 mg/dL [facility] Chloride [Moles/Vol] 105 mmol/L 98 - 10 7 mmol/L [facility] CO2 [Moles/Vol] 27 mmol/L 20 - 31 mmol/L [facility] Creatinine [Mass/Vol] 1.78 mg/dL High 0.70 - 1.20 mg/dL [facility] Free PSA/Total PSA [Mass fraction] 8.3 g/dL 6.4 - 8.3 g/dL [facility] GFR 47 mL/min Low >60 [facility] GFR Non- 38 mL/min Low >60 [facility] Glucose [Mass/Vol] 19 mg/dL Critically low 70 - 99 mg/dL [facility] Interpretation and review of laboratory results Abnormal [facility] Potassium [Moles/Vol] 3.4 mmol/L Low 3.7 - 5.3 mmol/L [facility] Sodium [Moles/Vol] 145 mmol/L High 135 - 144 mmol/L [facility] Urea nitrogen (BldV) [Mass/Vol] 34 mg/dL High 8 - 23 mg/dL [facility] Urea nitrogen/Creatinine (Bld) [Mass ratio] 19 [facility] Glucose, Whole Bloodon 06-04 Glucose [Mass/Vol] 125 mg/dL High 74 - 100 mg/dL [facility] Interpretation and review of laboratory results Abnormal [facility] Glucose [Mass/Vol] 134 mg/dL High 74 - 100 mg/dL [facility] Interpretation and review of laboratory results Abnormal [facility] Glucose [Mass/Vol] 97 mg/dL 74 - 100 mg/dL [facility] Glucose [Mass/Vol] 60 mg/dL Low 74 - 100 mg/dL [facility] Interpretation and review of laboratory results Abnormal [facility] Glucose [Mass/Vol] 93 mg/dL 74 - 100 mg/dL [facility] Laboratory - Chemistry and C hemistry - challengeon 06-04-2021 GFR/1.73 sq M.predicted MDRD (S/P/Bld) [Vol rate/Area] [facility] Comment on above: Average GFR for 60-6 9 years old: 85 mL/min/1.73sq m Chronic Kidney Disease: <60 mL/min/1.73sq m Kidney failure: <15 mL/min/1.73sq m eGFR calculated using average adult body mass. Additional eGFR calculator available at: http://www.Wink/multiple_crcl_2012.htm Stage 1: Some kidney damage normal GFR Stage 2: Mild kidney damage GFR 60-89 Stage 3: Moderate kidney damage GFR 30-59 Stage 4: Severe kidney damage GFR 15-29 Stage 5: Severe kidney damage GFR <15 ESRD - chronic treatment by dialysis or transplant Lactic Acidon 06-04-2021 Lactate [Moles/Vol] 1.0 mmol/L Normal 0.5-2.2 [facility] Comment on above: Performed By: #### L AC #### [facility] [address] [place] [address] [place] [address] [employer] Work[employer]: Stevan Kerns MD Lactate [Moles/Vol] 1 mmol/L 0.5 - 2. 2 mmol/L [facility] Magnesiumon 06-04-2021 Magnesium [Mass/Vol] 1.8 mg/dL Normal 1.6-2.6 [facility] Comment on above: Performed By: #### C MPX, TROPI, PT, CDP, MG #### [facility] [address] [place] [address] [employer] Worker [employer]: Stevan Kerns MD Magnesium [Mass/Vol] 1.8 mg/dL 1.6 - 2 .6 mg/dL [facility] Microscopic Urinalysison - [facility] Amorphous, UA NOT REPORTED None [facility] Bacteria, UA NOT REPORTED None [facility] th Casts UA NOT REPORTED /LPF [facility] Crystals, UA NOT REPORTED None /HPF [facility] th Epithelial Cells UA 0 TO 2 [facility] Mucus, UA NOT REPORTED None [facility] Other Observations UA NOT REPORTED NOT REQ. M [facility] RBC, UA 0 TO 2 [facility] Renal Epithelial, UA NOT REPORTED 0 /HPF [facility] Trichomonas, UA NOT REPORTED None [facility] ealt WBC, UA 0 TO 2 [facility] Yeast, UA NOT REPORTED None [facility] POCT glucoseOrdered By: Alesha Gonzalez on 06-04-2021 Glucose [Mass/Vol] 60 mg/dL [facility] Interpretation and review of laboratory results Normal [facility] PTon 06-04-2021 INR Coag (PPP) [Relative time] 0.9 {INR} Normal [facility] Comment on above: Result Comment: Non-therapeutic Range: INR = 0.9-1.2 Therapeutic Range: Moderate Anticoagulant Intensity: INR = 2.0-3.0 High Anticoagulant Intensity: INR = 2.5-3.5 Performed By: #### C MPX, TROPI, PT, CDP, MG #### [facility] [address] [place] [address] [employer]: Stevan Kerns MD PT Coag (PPP) [Time] 12.4 s Normal 11.5-14.2 [facility] Comment on above: Performed By: #### C MPX, TROPI, PT, CDP, MG #### [facility] [address] [place] [address] [employer]: Stevan Kerns MD Protime-INRon 06-04-2021 INR Coag (Bld) [Relative time] 0.9 {INR} [facility] Comment on above: Non-therapeutic Range: INR = 0.9-1.2 Therapeutic Range: Moderate Anticoagulant Intensity: INR = 2.0-3.0 High Anticoagulant Intensity: INR = 2.5-3.5 PT Coag (PPP) [Time] 12.4 s [facility] Troponinon 06-04-2021 Troponin, High Sens 13 ng/L Normal 0-22 [facility] Comment on above: Result Comment: High Sensitivity Troponin values cannot be compared with other Troponin methodologies. Patients with high levels of Biotin oral intake (i.e >5mg/day) may have falsely decreased Troponin levels. Samples collected within 8 hours of biotin intake may require additional information for diagnosis. Performed By: #### C MPX, TROPI, PT, CDP, MG #### [facility] [address] [place] [address] [place] [address] [employer] Work[employer]: Stevan Kerns MD Troponin Interp. NOT REPORTED Normal [facility] Comment on above: Performed By: #### C MPX, TROPI, PT, CDP, MG #### [facility] [address] [place] [address] Dr. [place], [place] 1895383 [employer] Work[employer]: Stevan Kerns MD Troponin T NOT REPORTED Normal <0.03 [facility] Comment on above: Performed By: #### C MPX, TROPI, PT, CDP, MG #### [facility] [address] [place] [address] [place]. [place], [place] [id number] [employer] Worker [employer]: Stevan Kerns MD Troponin Interp NOT REPORTED [facility] Troponin, High Sensitivity 13 ng/L 0 - 22 ng/L [facility] Comment on above: High Sensitivity Troponin values cannot be compared with other Troponin methodologies. Patients with high levels of Biotin oral intake (i.e >5mg/day) may have falsely decreased Troponin levels. Samples collected within 8 hours of biotin intake may require additional information for diagnosis. [facility] Urinalysis, Routineon 2020 Bilirubin, SemiQt,Ur Negative Normal NEG [facility] Comment on above: Performed By: #### U MICAO, UA #### [facility] [address] [place] [address] [place] [address] [employer] Work[employer]: Stevan Kerns MD Blood, Urine 1+ Abnormal NEG [facility] Comment on above: Performed By: #### U MICAO, UA #### [facility] [address] [place] [address] [employer] Worker [employer]: Stevan Kerns MD Clarity (U) Clear Normal CLEAR [facility] Comment on above: Performed By: #### U MICAO, UA #### [facility] [address] [place] [address] [employer] Worker [employer]: Stevan Kerns MD Color (U) Yellow Normal YEL [facility] Comment on above: Performed By: #### U MICAO, UA #### [facility] [address] [place] [address] [employer] Worker [employer]: Stevan Kerns MD Glucose Ql (U) Negative Normal NEG [facility] Comment on above: Performed By: #### U MICAO, UA #### [facility] [address] [place], [place] [id number] [employer] Work[employer]: Stevan Kerns MD Ketones Ql (U) Negative Normal NEG [facility] Comment on above: Performed By: #### U MICAO, UA #### [facility] [address] [place] [address] [employer] Worker [employer]: Stevan Kerns MD Leukocyte esterase Test strip Ql (U) Negative Normal NEG [facility] Comment on above: Performed By: #### U MICAO, UA #### [facility] [address] [place], [place] [id number] [employer] Worker [employer]: Stevan Kerns MD Nitrite,Ur Negative Normal NEG [facility] Comment on above: Performed By: #### U MICAO, UA #### [facility] [address] [place], [place] [phone] [employer] Worker [employer]: Stevan Kerns MD PH,Ur 5.5 Normal 5.0-9.0 [facility] Comment on above: Performed By: #### U MICAO, UA #### [facility] [address] [place], [place] [id number] [employer] Worker [employer]: Stevan Kerns MD Protein Ql (U) 2+ Abnormal NEG [facility] Comment on above: Performed By: #### U MICAO, UA #### [facility] [address] [place] [address] Dr. [place], [place] [id number] [employer] Work[employer]: Stevan Kerns MD Spec. [place],Ur >1.030 High 1.010-1.020 [facility] Comment on above: Performed By: #### U MICAO, UA #### [address] [place], [place] [phone] [employer] Worker [employer]: Stevan Kerns MD Urobilinogen,Ur Normal Normal NORM [facility] Comment on above: Performed By: #### U MICAO, UA #### [facility] [address] [place] [address] Dr. [place], [place] [phone] [employer] Work[employer]: Stevan Kerns MD Comment NOT REPORTED Normal [facility] Comment on above: Performed By: #### U MICAO, UA #### [facility] [address] [place] [address] [place]. [place], [place] [phone] [employer] Worker [employer]: Stevan Kerns MD Urinalysis, reflex to [facility] copicon 06-04-2021 Bilirubin Urine Negative NEGATIVE [facility] Color, UA Yellow Yellow [facility] Glucose, Ur Negative NEGATIVE [facility] Interpretation and review of laboratory results Abnormal [facility] Ketones Ql (U) Negative NEGATIVE [facility] Leukocyte esterase Test strip Ql (U) Negative NEGATIVE [facility] Nitrite, Urine Negative NEGATIVE [facility] pH, UA 5.5 [facility] Protein, UA 2+ Abnormal NEGATIVE [facility] Specific [place], UA >1.030 [facility] Turbidity UA Clear Clear [facility] Urinalysis Comments NOT REPORTED [facility] Urine Hgb 1+ Abnormal NEGATIVE [facility] Urobilinogen, Urine Normal Normal [facility] Urinalysis,Microon 1 ----- Normal [facility] Comment on above: Performed By: #### U MICAO, UA #### [facility] [address] [place], [place] [id number] [employer] Worker [employer]: Stevan Kerns MD Epithelial cells LM Ql (Urine sed) 0 TO 2 Normal 0-[address] [place] [address] Comment on above: Performed By: #### U MICAO, UA #### [facility] [address] [place], [place] [phone] [employer] Worker [employer]: Stevan Kerns MD Urine RBC's 0 TO 2 Normal 0-2 [facility] Comment on above: Performed By: #### U MICAO, UA #### [facility] [address] [place], [place] [phone] [employer] Worker [employer]: Stevan Kerns MD Urine WBC's 0 TO 2 Normal 0-[address] [place] [address] Comment on above: Performed By: #### U MICAO, UA #### [facility] [address] [place], [place] [phone] [employer] Worker [employer]: Stevan Kerns MD Amorphous sediment LM Ql (Urine sed) NOT REPORTED Normal [facility] Comment on above: Performed By: #### U MICAO, UA #### [facility] [address] [place], [place] 9791483 [employer] Worker [employer]: Stevan Kerns MD Bacteria NOT REPORTED Normal [facility] Comment on above: Performed By: #### U MICAO, UA #### [facility] [address] [place], [place] 6875583 [employer] Worker [employer]: Stevan Kerns MD Casts NOT REPORTED Normal [facility] Comment on above: Performed By: #### U MICAO, UA #### [facility] [address] [place], [place] [phone] [employer] Worker [employer]: Stevan Kerns MD Crystals LM Nom (Urine sed) NOT REPORTED Normal NONE [facility] Comment on above: Performed By: #### U LYNN, UA #### [facility] [address] [place], [place] 7687583 [employer] Worker [employer]: Stevan Kerns MD Epithelial, Renal NOT REPORTED Normal 0 [facility] Comment on above: Performed By: #### U KARINO, UA #### [facility] [address] [place], [place] [phone] Har[employer] Worker [employer]: Stevan Kerns MD Mucus Strands NOT REPORTED Normal NONE [facility] Comment on above: Performed By: #### U KARINO, UA #### [facility] [address] [place], [place] 9006483 Har[employer] Worker [employer]: Stevan Kerns MD Other Observations NOT REPORTED Normal NREQ [facility] Comment on above: Performed By: #### U KARINO, UA #### [facility] [address] [place], [place] 5674783 [employer] Worker [employer]: Stevan Kerns MD Trichomonas NOT REPORTED Normal NONE [facility] Comment on above: Performed By: #### U KARINO, UA #### [facility] [address] [place], [place] [phone] Har[employer] Worker Fruit: Stevan Kerns MD Yeast NOT REPORTED Normal [facility] Comment on above: Performed By: #### U KARINO, UA #### [facility] [address] [place], [place] 1361283 Har[employer] Worker [employer]: Stevan Kerns MD ARTERIAL BLOOD GAS W/COOXon 06-15-2019 BASE EXCESS 15 mmol/L High -2-3 [facility] Comment on above: Order Comment: No: D o not add to previous draw Performed By: #### 4 1000, 44238, 47824, 26316 #### [facility] [address] [place] [address], [place] COHB 2.5 % High 0.0-1.5 [facility] Comment on above: Order Comment: No: D o not add to previous draw Performed By: #### 4 1000, 15380, 94826, 29357 #### [facility] [address] [place] [address], [place] DELIVERY SYSTEMS RA Normal [facility] Comment on above: Order Comment: No: D o not add to previous draw Performed By: #### 4 1000, 56381, 03694, 77679 #### [facility] [address] [place] [address], [place] HCO3 (Bld) [Moles/Vol] 42 mmol/L Critically high 21-28 [facility] Comment on above: Order Comment: No: D o not add to previous draw Performed By: #### 4 1000, 32683, 52504, 70289 #### [facility] [address] [place] [address], [place] METHB 1.2 % Normal 0.0-1.5 [facility] Comment on above: Order Comment: No: D o not add to previous draw Performed By: #### 4 1000, 83298, 92743, 15860 #### [facility] [address] [place] [address], [place] MODALITY RA Normal [facility] Comment on above: Order Comment: No: D o not add to previous draw Performed By: #### 4 1000, 79057, 03677, 08450 #### [facility] [address] [place] [address], [place] Oxygen (Bld) [Partial pressure] 49 mm[Hg] Critically low 83-108 [facility] Comment on above: Order Comment: No: D o not add to previous draw Performed By: #### 4 1000, 44188, 36236, 85184 #### [facility] [address] [place] [address], [place] Oxygen saturation in Blood 87.3 % Critically low 94.0-97.0 [facility] Comment on above: Order Comment: No: D o not add to previous draw Performed By: #### 4 1000, 55964, 11680, 52297 #### [facility] [address] [place] [address], [facility] PCO2 60 mmHg Critically high 35-45 [facility] Comment on above: Order Comment: No: D o not add to previous draw Performed By: #### 4 1000, 67908, 92991, 89665 #### [facility] [address] [place] [address], [facility] pH (Bld) 7.45 [pH] Normal 7.35-7.45 [facility] Comment on above: Order Comment: No: D o not add to previous draw Performed By: #### 4 1000, 70710, 65192, 76015 #### [facility] [address] THB 14.2 g/dL Normal 12.0-16.3 [facility] Comment on above: Order Comment: No: D o not add to previous draw Performed By: #### 4 1000, 61905, 34300, 74465 #### [facility] [address] BASIC METABOLIC PANELon 12- Calcium [Mass/Vol] 9.0 mg/dL Normal 8.6-10.3 [facility] Comment on above: Order Comment: No: D o not add to previous draw Performed By: #### 4 1000, 47524, 91235, 63664 #### [facility] [address] [place] [address], [facility] Chloride [Moles/Vol] 93 mmol/L Low 98-107 [facility] Comment on above: Order Comment: No: D o not add to previous draw Performed By: #### 4 1000, 34222, 91568, 45191 #### [facility] [address] [place] [address], [place] CO2 [Moles/Vol] 36 mmol/L High 21-31 [facility] Comment on above: Order Comment: No: D o not add to previous draw Performed By: #### 4 1000, 26025, 12802, 37728 #### [facility] [address] [place] [address], [place] Creatinine [Mass/Vol] 1.30 mg/dL Normal 0.70-1.30 [facility] Comment on above: Order Comment: No: D o not add to previous draw Performed By: #### 4 1000, 49753, 43346, 74584 #### [facility] [address] [place] [address], [place] GFR/1.73 sq M predicted among blacks MDRD (S/P/Bld) [Vol rate/Area] mL/min/{1.73_m2} Normal >60 [facility] Comment on above: Order Comment: No: D o not add to previous draw Performed By: #### 4 1000, 66603, 23796, 90544 #### [facility] [address] [place] [address], [place] GFR/1.73 sq M predicted among non-blacks MDRD (S/P/Bld) [Vol rate/Area] 56 ml/min/1.73sq m Abnormal >60 [facility] Comment on above: Order Comment: No: D o not add to previous draw Performed By: #### 4 1000, 49520, 26965, 89371 #### [facility] [address] [place] [address], [place] Glucose [Mass/Vol] 147 mg/dL High 70-100 [facility] Comment on above: Order Comment: No: D o not add to previous draw Performed By: #### 4 1000, 87148, 12084, 40286 #### [facility] [address] [place] [address], [place] Potassium [Moles/Vol] 4.2 mmol/L Normal 3.5-5.1 [facility] Comment on above: Order Comment: No: D o not add to previous draw Performed By: #### 4 1000, 59207, 62839, 38825 #### [facility] [address] [place] [address], [place] Sodium [Moles/Vol] 136 mmol/L Normal 136-145 [facility] Comment on above: Order Comment: No: D o not add to previous draw Performed By: #### 4 1000, 19706, 60628, 94128 #### [facility] [address] [place] [address], [place] Urea nitrogen [Mass/Vol] 31 mg/dL High 7-25 [facility] Comment on above: Order Comment: No: D o not add to previous draw Performed By: #### 4 1000, 48422, 75661, 06721 #### [facility] [address] [place] [address], [place] MAGNESIUM BLOODon 06-15-2019 Magnesium [Mass/Vol] 2.0 mg/dL Normal 1.9-2.7 [facility] Comment on above: Order Comment: No: D o not add to previous draw Performed By: #### 4 1000, 95972, 50300, 98498 #### [facility] [address] [place] [address], [place] POC GLUCOSE LABon 06-15-2019 Glucose [Mass/Vol] 156 mg/dL High 70-100 [facility] Comment on above: Performed By: #### 4 1000, 49247, 00600, 25714 #### [facility] [address] [place] [address], [place] Glucose [Mass/Vol] 220 mg/dL High 70-100 [facility] Comment on above: Performed By: #### 4 1000, 91814, 67645, 03182 #### [facility] [address] [place] [address], [facility] Glucose [Mass/Vol] 138 mg/dL High 70-100 [facility] Comment on above: Performed By: #### 4 1000, 35816, 05115, 09061 #### [facility] [address] [place] [address], [facility] BASIC METABOLIC PANELon 12-0 Calcium [Mass/Vol] 8.9 mg/dL Normal 8.6-10.3 [facility] Comment on above: Order Comment: No: D o not add to previous draw Performed By: #### 4 1000, 44361, 88251, 27941 #### [facility] [address] [place] [address], [facility] Chloride [Moles/Vol] 95 mmol/L Low 98-107 [facility] Comment on above: Order Comment: No: D o not add to previous draw Performed By: #### 4 1000, 66728, 92614, 01707 #### [facility] [address] [place] [address], [place] CO2 [Moles/Vol] 35 mmol/L High 21-31 [facility] Comment on above: Order Comment: No: D o not add to previous draw Performed By: #### 4 1000, 50519, 92739, 91064 #### [facility] [address] [place] [address], [place] Creatinine [Mass/Vol] 1.35 mg/dL High 0.70-1.30 [facility] Comment on above: Order Comment: No: D o not add to previous draw Performed By: #### 4 1000, 98549, 11721, 71272 #### [facility] [address] [place] [address], [place] GFR/1.73 sq M predicted among blacks MDRD (S/P/Bld) [Vol rate/Area] mL/min/{1.73_m2} Normal >60 [facility] Comment on above: Order Comment: No: D o not add to previous draw Performed By: #### 4 1000, 10464, 34781, 02244 #### [facility] [address] [place] [address], [place] GFR/1.73 sq M predicted among non-blacks MDRD (S/P/Bld) [Vol rate/Area] 53 ml/min/1.73sq m Abnormal >60 [facility] Comment on above: Order Comment: No: D o not add to previous draw Performed By: #### 4 1000, 09345, 97565, 26031 #### [facility] [address] [place] [address], [place] Glucose [Mass/Vol] 172 mg/dL High 70-100 [facility] Comment on above: Order Comment: No: D o not add to previous draw Performed By: #### 4 1000, 38077, 76214, 14990 #### [facility] [address] [place] [address], [place] Potassium [Moles/Vol] 4.0 mmol/L Normal 3.5-5.1 [facility] Comment on above: Order Comment: No: D o not add to previous draw Performed By: #### 4 1000, 43029, 65467, 41367 #### [facility] [address] [place] [address], [place] Sodium [Moles/Vol] 139 mmol/L Normal 136-145 [facility] Comment on above: Order Comment: No: D o not add to previous draw Performed By: #### 4 1000, 32390, 66275, 63017 #### [facility] [address] [place] [address], [place] Urea nitrogen [Mass/Vol] 30 mg/dL High 7-25 [facility] Comment on above: Order Comment: No: D o not add to previous draw Performed By: #### 4 1000, 13575, 42116, 04210 #### [facility] [address] [place] [address], [facility] CBC W/DIFFon 06-14-2019 ABS BASOPHILS 0.0 10*3/uL Normal 0.0-0.2 [facility] Comment on above: Order Comment: No: D o not add to previous draw Performed By: #### 4 1000, 89873, 69801, 73183 #### [facility] [address] [facility] [place] [address], [facility] ABS IMM GRANS 0.0 10*3/uL Normal 0.0-0.2 [facility] Comment on above: Order Comment: No: D o not add to previous draw Performed By: #### 4 1000, 12103, 15878, 25847 #### [facility] [address] [place] [address], [facility] ABS NEUTROPHILS 5.7 10*3/uL Normal 1.6-7.6 [facility] Comment on above: Order Comment: No: D o not add to previous draw Performed By: #### 4 1000, 95793, 21248, 62219 #### [facility] [address] [place] [address], [facility] Basophils/100 WBC (Bld) 0.2 % Normal 0.0-1.0 [facility] Comment on above: Order Comment: No: D o not add to previous draw Performed By: #### 4 1000, 51837, 17355, 37655 #### [facility] [address] [facility] [place] [address], [facility] Eosinophils (Bld) [#/Vol] 0.2 10*3/uL Normal 0.0-0.5 [facility] Comment on above: Order Comment: No: D o not add to previous draw Performed By: #### 4 1000, 79498, 70074, 28796 #### [facility] [address] [place] [address], [facility] Eosinophils/100 WBC (Bld) 1.8 % Normal 0.0-6.0 [facility] Comment on above: Order Comment: No: D o not add to previous draw Performed By: #### 4 1000, 06998, 08622, 63601 #### [facility] [address] [place] [address], [facility] Erythrocyte distribution width (RBC) [Ratio] 13.3 % Normal 11.5-15.0 [facility] Comment on above: Order Comment: No: D o not add to previous draw Performed By: #### 4 1000, 98693, 57582, 05527 #### [facility] [address] [place] [address], [facility] Hematocrit (Bld) [Volume fraction] 44.2 % Normal 39.0-50.0 [facility] Comment on above: Order Comment: No: D o not add to previous draw Performed By: #### 4 1000, 64435, 20754, 03175 #### [facility] [address] [place] [address], [facility] Hemoglobin (Bld) [Mass/Vol] 13.8 g/dL Normal 13.0-17.0 [facility] Comment on above: Order Comment: No: D o not add to previous draw Performed By: #### 4 1000, 35266, 72257, 11768 #### [facility] [address] [place] [address], [facility] IMMATURE GRANS 0.4 % Normal 0.0-1.0 [facility] Comment on above: Order Comment: No: D o not add to previous draw Performed By: #### 4 1000, 56843, 12097, 21378 #### [facility] [address] [place] [address], [facility] Lymphocytes (Bld) [#/Vol] 1.6 10*3/uL Normal 1.2-4.0 [facility] Comment on above: Order Comment: No: D o not add to previous draw Performed By: #### 4 1000, 26786, 19255, 12800 #### [facility] [address] [facility] [address], [facility] Lymphocytes/100 WBC (Bld) 19.6 % Low 20.0-45.0 [facility] Comment on above: Order Comment: No: D o not add to previous draw Performed By: #### 4 1000, 99451, 21497, 33271 #### [facility] [address] [place] [address], [facility] MCH (RBC) [Entitic mass] 29.1 pg Normal 27.0-33.0 [facility] Comment on above: Order Comment: No: D o not add to previous draw Performed By: #### 4 1000, 97912, 45801, 65117 #### [facility] [facility] [address] [address], [facility] MCHC (RBC) [Mass/Vol] 31.2 g/dL Low 32.0-35.0 [facility] Comment on above: Order Comment: No: D o not add to previous draw Performed By: #### 4 999, 05369, 21292, 12540 #### [facility] [address] [place] [address], [facility] MCV (RBC) [Entitic vol] 93.2 fL Normal 82.0-98.0 [facility] Comment on above: Order Comment: No: D o not add to previous draw Performed By: #### 4 999, 56731, 35529, 59807 #### [facility] [address] [place] [address], [facility] Monocytes (Bld) [#/Vol] 0.6 10*3/uL Normal 0.1-1.0 [facility] Comment on above: Order Comment: No: D o not add to previous draw Performed By: #### 4 1000, 31457, 68735, 26662 #### [facility] [address] [place] [id number], [facility] MONOS 7.7 % Normal 5.0-12.0 [facility] Comment on above: Order Comment: No: D o not add to previous draw Performed By: #### 4 1000, 31327, 15172, 59701 #### [facility] [address] [place] [id number], [facility] Neutrophils/100 WBC (Bld) 70.3 % Normal 40.0-72.0 [facility] Comment on above: Order Comment: No: D o not add to previous draw Performed By: #### 4 1000, 30852, 50393, 28529 #### [facility] [address] [place] [address], [place] Nucleated RBC/100 WBC (Bld) [Ratio] 0 % Normal 0-0 [facility] Comment on above: Order Comment: No: D o not add to previous draw Performed By: #### 4 1000, 69112, 72495, 10869 #### [facility] [address] [place] [address], [facility] PLAT CNT 157 10*3/uL Normal 150-400 [facility] Comment on above: Order Comment: No: D o not add to previous draw Performed By: #### 4 1000, 91625, 86121, 84998 #### [facility] [address] [place] [address], [facility] RBC (Bld) [#/Vol] 4.74 10*6/uL Normal 4.20-5.70 [facility] Comment on above: Order Comment: No: D o not add to previous draw Performed By: #### 4 1000, 83132, 82774, 69345 #### [facility] [address] [place] [address], [place] WBC (Bld) [#/Vol] 8.16 10*3/uL Normal 4.00-10.60 [facility] Comment on above: Order Comment: No: D o not add to previous draw Performed By: #### 4 1000, 21455, 36086, 62420 #### [facility] [address] [facility] [place] [address], [facility] Cardiovascular Lab Reporton 06-14-2019 Cardiovascular Lab Report [facility] Patient Name: Tim [facility] Lucas Doherty MR #: [id number] Department of Physician: Reema Taveras MD Division of Service Date: 06/14/2019 Cardiology Birthdate: 1955 Adult Cardiovascular Room #: [id number] [facility] [address] [facility]. [place] [address] Cardiovascular Laboratory Report UNIT MANAGER: Dr. Carolyn Montero, industrial conveyor belt repairer. INDICATIONS: This is a 63-year-old man with [...] The patient was also notified that a industrial conveyor belt repairer will be assisting during the course of [...] internal jugular vein. Then, we inserted a 6-Wolof x 11 cm glide sheath and advanced [...] elevated wedge pressure at 17 mmHg and [id number] elevation in his right-sided pressures. His RA [...] P/Reema Taveras MD Date Trans: 06/14/2019 01:05 P/anselmo [id number] cc: Josh Pro D.O. [address] [place] [id number] Normal [facility] MAGNESIUM BLOODon 06-14-2019 Magnesium [Mass/Vol] 2.0 mg/dL Normal 1.9-2.7 [facility] Comment on above: Order Comment: No: D o not add to previous draw Performed By: #### 4 1000, 53688, 32522, 77797 #### [facility] [address] [place] [address], [place] POC GLUCOSE LABon 06-14-2019 Glucose [Mass/Vol] 305 mg/dL High 70-100 [facility] on above: Performed By: #### 4 1000, 03367, 92183, 42275 #### [facility] [address] [place] [address], [place] Glucose [Mass/Vol] 299 mg/dL High 70-100 [facility] Comment on above: Performed By: #### 4 1000, 04986, 88583, 90867 #### [facility] [address] [place] [address], [place] Glucose [Mass/Vol] 177 mg/dL High 70-100 [facility] Comment on above: Performed By: #### 4 1000, 14708, 22083, 22017 #### [facility] [address] [place] [address], [place] Glucose [Mass/Vol] 194 mg/dL High 70-100 [facility] Comment on above: Performed By: #### 4 1000, 29981, 24252, 53988 #### [facility] [address] [place] [address], [place] Glucose [Mass/Vol] 163 mg/dL High 70-100 [facility] Comment on above: Performed By: #### 4 1000, 89638, 48654, 03650 #### [facility] [address] [place] [address], [place] BASIC METABOLIC PANELon 12-0 Calcium [Mass/Vol] 9.3 mg/dL Normal 8.6-10.3 [facility] Comment on above: Order Comment: No: D o not add to previous draw Performed By: #### 4 1000, 11828, 27694, 69057 #### [facility] [address] [place] [address], [place] Chloride [Moles/Vol] 98 mmol/L Normal 98-107 [facility] Comment on above: Order Comment: No: D o not add to previous draw Performed By: #### 4 1000, 79907, 93440, 93393 #### [facility] [address] [place] [address], [place] CO2 [Moles/Vol] 39 mmol/L High 21-31 [facility] Comment on above: Order Comment: No: D o not add to previous draw Performed By: #### 4 1000, 38027, 31041, 81354 #### [facility] [address] [place] [address], [place] Creatinine [Mass/Vol] 1.35 mg/dL High 0.70-1.30 [facility] Comment on above: Order Comment: No: D o not add to previous draw Performed By: #### 4 1000, 21965, 38645, 38818 #### [facility] [address] [place] [address], [place] GFR/1.73 sq M predicted among blacks MDRD (S/P/Bld) [Vol rate/Area] mL/min/{1.73_m2} Normal >60 [facility] Comment on above: Order Comment: No: D o not add to previous draw Performed By: #### 4 1000, 37039, 70385, 06163 #### [facility] [address] [place] [address], [place] GFR/1.73 sq M predicted among non-blacks MDRD (S/P/Bld) [Vol rate/Area] 53 ml/min/1.73sq m Abnormal >60 [facility] Comment on above: Order Comment: No: D o not add to previous draw Performed By: #### 4 1000, 50649, 19864, 68529 #### [facility] [address] [place] [address], [place] Glucose [Mass/Vol] 90 mg/dL Normal 70-100 [facility] Comment on above: Order Comment: No: D o not add to previous draw Performed By: #### 4 1000, 24475, 78573, 55608 #### [facility] [address] [place] [address], [facility] Potassium [Moles/Vol] 3.8 mmol/L Normal 3.5-5.1 [facility] Comment on above: Order Comment: No: D o not add to previous draw Performed By: #### 4 1000, 55437, 10085, 88389 #### [facility] [address] [place] [id number], [facility] Sodium [Moles/Vol] 143 mmol/L Normal 136-145 [facility] Comment on above: Order Comment: No: D o not add to previous draw Performed By: #### 4 1000, 83740, 02542, 05609 #### [facility] [address] [place] [address], [facility] Urea nitrogen [Mass/Vol] 28 mg/dL High 7-25 [facility] Comment on above: Order Comment: No: D o not add to previous draw Performed By: #### 4 1000, 13487, 70996, 33891 #### [facility] [address] [facility] [place] [address], [facility] CBC W/DIFFon 06-13-2019 ABS BASOPHILS 0.0 10*3/uL Normal 0.0-0.2 The [facility] Comment on above: Order Comment: No: D o not add to previous draw Performed By: #### 4 1000, 77959, 70436, 25903 #### [facility] [address] [place] [address], [facility] ABS IMM GRANS 0.0 10*3/uL Normal 0.0-0.2 The [facility] Comment on above: Order Comment: No: D o not add to previous draw Performed By: #### 4 1000, 68994, 31588, 27368 #### [facility] [address] [place] [address], [facility] ABS NEUTROPHILS 5.6 10*3/uL Normal 1.6-7.6 The [facility] Comment on above: Order Comment: No: D o not add to previous draw Performed By: #### 4 1000, 93389, 63370, 76128 #### [facility] [address] [place] [id number], [facility] Basophils/100 WBC (Bld) 0.2 % Normal 0.0-1.0 [facility] Comment on above: Order Comment: No: D o not add to previous draw Performed By: #### 4 1000, 54341, 62342, 87344 #### [facility] [address] [address], [facility] Eosinophils (Bld) [#/Vol] 0.2 10*3/uL Normal 0.0-0.5 [facility] Comment on above: Order Comment: No: D o not add to previous draw Performed By: #### 4 1000, 88617, 14533, 72868 #### [facility] [address] [place] [address], [facility] Eosinophils/100 WBC (Bld) 2.4 % Normal 0.0-6.0 [facility] Comment on above: Order Comment: No: D o not add to previous draw Performed By: #### 4 1000, 21114, 09438, 65970 #### [facility] [address] [place] [address], [facility] Erythrocyte distribution width (RBC) [Ratio] 13.5 % Normal 11.5-15.0 [facility] Comment on above: Order Comment: No: D o not add to previous draw Performed By: #### 4 1000, 74396, 92422, 99090 #### [facility] [address] [place] [id number], [facility] Hematocrit (Bld) [Volume fraction] 44.3 % Normal 39.0-50.0 [facility] Comment on above: Order Comment: No: D o not add to previous draw Performed By: #### 4 1000, 32900, 62496, 82799 #### [facility] [address] [address], [facility] Hemoglobin (Bld) [Mass/Vol] 14.0 g/dL Normal 13.0-17.0 [facility] Comment on above: Order Comment: No: D o not add to previous draw Performed By: #### 4 1000, 96965, 75663, 95734 #### [facility] [address] [address], [facility] IMMATURE GRANS 0.4 % Normal 0.0-1.0 The [facility] rogelio [facility] Comment on above: Order Comment: No: D o not add to previous draw Performed By: #### 4 1000, 11381, 44591, 56715 #### [facility] [address] [place] [address], [facility] Lymphocytes (Bld) [#/Vol] 1.6 10*3/uL Normal 1.2-4.0 [facility] Comment on above: Order Comment: No: D o not add to previous draw Performed By: #### 4 999, 41291, 37821, 56793 #### [facility] [address] [facility] [place] [address], [facility] Lymphocytes/100 WBC (Bld) 19.7 % Low 20.0-45.0 [facility] Comment on above: Order Comment: No: D o not add to previous draw Performed By: #### 4 1000, 42760, 09604, 51857 #### [facility] [address] [place] [address], [facility] MCH (RBC) [Entitic mass] 29.3 pg Normal 27.0-33.0 [facility] Comment on above: Order Comment: No: D o not add to previous draw Performed By: #### 4 1000, 60766, 22412, 97023 #### [facility] [address] [place] [address], [facility] MCHC (RBC) [Mass/Vol] 31.6 g/dL Low 32.0-35.0 [facility] Comment on above: Order Comment: No: D o not add to previous draw Performed By: #### 4 1000, 41731, 58448, 43530 #### [facility] [address] [place] [address], [facility] MCV (RBC) [Entitic vol] 92.7 fL Normal 82.0-98.0 [facility] Comment on above: Order Comment: No: D o not add to previous draw Performed By: #### 4 1000, 89632, 48177, 46527 #### [facility] [address] [place] [address], [facility] Monocytes (Bld) [#/Vol] 0.6 10*3/uL Normal 0.1-1.0 [facility] Comment on above: Order Comment: No: D o not add to previous draw Performed By: #### 4 1000, 12691, 81369, 89441 #### [facility] [address] [place] [address], [facility] MONOS 7.8 % Normal 5.0-12.0 [facility] Comment on above: Order Comment: No: D o not add to previous draw Performed By: #### 4 1000, 82702, 56870, 37326 #### [facility] [address] [place] [address], [facility] Neutrophils/100 WBC (Bld) 69.5 % Normal 40.0-72.0 [facility] Comment on above: Order Comment: No: D o not add to previous draw Performed By: #### 4 1000, 84670, 66859, 81650 #### [facility] [address] [facility] [place] [address], [facility] Nucleated RBC/100 WBC (Bld) [Ratio] 0 % Normal 0-0 [facility] Comment on above: Order Comment: No: D o not add to previous draw Performed By: #### 4 1000, 09999, 54701, 36868 #### [facility] [address] [place] [address], [facility] PLAT CNT 179 10*3/uL Normal 150-400 The [facility] Comment on above: Order Comment: No: D o not add to previous draw Performed By: #### 4 1000, 29475, 89370, 59752 #### [facility] [address] [place] [address], [facility] RBC (Bld) [#/Vol] 4.78 10*6/uL Normal 4.20-5.70 [facility] Comment on above: Order Comment: No: D o not add to previous draw Performed By: #### 4 1000, 03548, 94520, 73571 #### [facility] [address] [place] [address], [facility] WBC (Bld) [#/Vol] 8.04 10*3/uL Normal 4.00-10.60 [facility] Comment on above: Order Comment: No: D o not add to previous draw Performed By: #### 4 1000, 28150, 11580, 09573 #### [facility] [address] [facility] [place] [address], [facility] HEMOGLOBIN A1Con 06-13-2019 HbA1c (Bld) [Mass fraction] 8.1 % High 4.0-6.0 [facility] Comment on above: Order Comment: No: D o not add to previous draw Performed By: #### 4 1000, 06826, 29282, 60394 #### [facility] [address] [place] [address], [facility] HbA1c (Bld) [Mass fraction] 186 mg/dL High 70-126 [facility] Comment on above: Order Comment: No: D o not add to previous draw Performed By: #### 4 1000, 78959, 56685, 30068 #### [facility] [address] [place] [address], [facility] MAGNESIUM BLOODon 06-13-2019 Magnesium [Mass/Vol] 2.2 mg/dL Normal 1.9-2.7 [facility] Comment on above: Order Comment: No: D o not add to previous draw Performed By: #### 4 1000, 32107, 06641, 34065 #### [facility] [address] [place] [address], [place] PHOSPHORUS BLOODon 9 Phosphate [Mass/Vol] 3.7 mg/dL Normal 2.5-5.0 [facility] Comment on above: Order Comment: No: D o not add to previous draw Performed By: #### 4 1000, 44543, 08406, 57700 #### [facility] [address] [place] [address], [facility] POC GLUCOSE LABon 06-13-2019 Glucose [Mass/Vol] 156 mg/dL High 70-100 [facility] Comment on above: Performed By: #### 4 1000, 22624, 95436, 31485 #### [facility] [address] [place] [address], [place] Glucose [Mass/Vol] 90 mg/dL Normal 70-100 [facility] Comment on above: Performed By: #### 4 1000, 92289, 95863, 16841 #### [facility] [address] [place] [address], [place] Glucose [Mass/Vol] 220 mg/dL High 70-100 [facility] Comment on above: Performed By: #### 4 1000, 43233, 89337, 30639 #### [facility] [address] [place] [address], [place] BASIC METABOLIC PANELon Calcium [Mass/Vol] 8.7 mg/dL Normal 8.6-10.3 [facility] Comment on above: Order Comment: If no t done in ED No: Do not add to previous draw Performed By: #### 8 5123 #### [facility] [address] [place] [address], [place] Chloride [Moles/Vol] 95 mmol/L Low 98-107 [facility] Comment on above: Order Comment: If no t done in ED No: Do not add to previous draw Performed By: #### 8 5123 #### [facility] [address] [place] [address], [place] CO2 [Moles/Vol] 36 mmol/L High 21-31 [facility] Comment on above: Order Comment: If no t done in ED No: Do not add to previous draw Performed By: #### 8 5123 #### [facility] [address] [place] [address], [place] Creatinine [Mass/Vol] 1.28 mg/dL Normal 0.70-1.30 [facility] Comment on above: Order Comment: If no t done in ED No: Do not add to previous draw Performed By: #### 8 5123 #### [facility] [address] [place] [address], [place] GFR/1.73 sq M predicted among blacks MDRD (S/P/Bld) [Vol rate/Area] mL/min/{1.73_m2} Normal >60 [facility] Comment on above: Order Comment: If no t done in ED No: Do not add to previous draw Performed By: #### 8 5123 #### [facility] [address] [place] [address], [place] GFR/1.73 sq M predicted among non-blacks MDRD (S/P/Bld) [Vol rate/Area] 57 ml/min/1.73sq m Abnormal >60 The [facility] Comment on above: Order Comment: If no t done in ED No: Do not add to previous draw Performed By: #### 8 5123 #### [facility] [address] [place] [address], [place] Glucose [Mass/Vol] 83 mg/dL Normal 70-100 [facility] Comment on above: Order Comment: If no t done in ED No: Do not add to previous draw Performed By: #### 8 5123 #### [facility] [address] [place] [address], [facility] Potassium [Moles/Vol] 3.7 mmol/L Normal 3.5-5.1 [facility] Comment on above: Order Comment: If no t done in ED No: Do not add to previous draw Performed By: #### 8 5123 #### [facility] [address] [place] [address], [place] Sodium [Moles/Vol] 140 mmol/L Normal 136-145 [facility] Comment on above: Order Comment: If no t done in ED No: Do not add to previous draw Performed By: #### 8 5123 #### [facility] [address] [place] [address], [facility] Urea nitrogen [Mass/Vol] 30 mg/dL High 7-25 [facility] Comment on above: Order Comment: If no t done in ED No: Do not add to previous draw Performed By: #### 8 5123 #### [facility] [address] [place] [address], [facility] CBC COMPLETE BLOOD COUNTon 1 08-13-2018 Erythrocyte distribution width (RBC) [Ratio] 13.4 % Normal 11.5-15.0 [facility] Comment on above: Order Comment: If no t done in ED No: Do not add to previous draw Performed By: #### 8 5123 #### [facility] [address] [place] [address], [facility] Hematocrit (Bld) [Volume fraction] 42.2 % Normal 39.0-50.0 [facility] Comment on above: Order Comment: If no t done in ED No: Do not add to previous draw Performed By: #### 8 5123 #### [facility] [address] [place] [address], [place] Hemoglobin (Bld) [Mass/Vol] 12.9 g/dL Low 13.0-17.0 [facility] Comment on above: Order Comment: If no t done in ED No: Do not add to previous draw Performed By: #### 8 5123 #### [facility] [address] [place] [id number], [facility] MCH (RBC) [Entitic mass] 28.8 pg Normal 27.0-33.0 [facility] Comment on above: Order Comment: If no t done in ED No: Do not add to previous draw Performed By: #### 8 5123 #### [facility] [address] MCHC (RBC) [Mass/Vol] 30.6 g/dL Low 32.0-35.0 [facility] Comment on above: Order Comment: If no t done in ED No: Do not add to previous draw Performed By: #### 8 5123 #### [facility] [address] [place] [address], [facility] MCV (RBC) [Entitic vol] 94.2 fL Normal 82.0-98.0 [facility] Comment on above: Order Comment: If no t done in ED No: Do not add to previous draw Performed By: #### 8 5123 #### [facility] [address] [place] [address], [facility] Nucleated RBC/100 WBC (Bld) [Ratio] 0 % Normal 0-0 [facility] Comment on above: Order Comment: If no t done in ED No: Do not add to previous draw Performed By: #### 8 5123 #### [facility] [address] [address], [facility] PLAT CNT 159 10*3/uL Normal 150-400 [facility] Comment on above: Order Comment: If no t done in ED No: Do not add to previous draw Performed By: #### 8 5123 #### [facility] [address] [place] [address], [facility] RBC (Bld) [#/Vol] 4.48 10*6/uL Normal 4.20-5.70 [facility] Comment on above: Order Comment: If no t done in ED No: Do not add to previous draw Performed By: #### 8 5123 #### [facility] [address] [place] [address], [facility] WBC (Bld) [#/Vol] 8.80 10*3/uL Normal 4.00-10.60 [facility] Comment on above: Order Comment: If no t done in ED No: Do not add to previous draw Performed By: #### 8 5123 #### [facility] [address] [place] [address], [facility] MAGNESIUM BLOODon 06-12-2019 Magnesium [Mass/Vol] 1.8 mg/dL Low 1.9-2.7 [facility] [facility] Comment on above: Order Comment: If no t done in ED No: Do not add to previous draw Performed By: #### 8 [id number] #### [facility] [address] [place] [place] [address], [facility] PHOSPHORUS BLOODon 9 Phosphate [Mass/Vol] 3.9 mg/dL Normal 2.5-5.0 [facility] Comment on above: Order Comment: If no t done in ED No: Do not add to previous draw Performed By: #### 8 5123 #### [facility] [address] [place] [address], [facility] POC GLUCOSE LABon 06-12-2019 Glucose [Mass/Vol] 323 mg/dL High 70-100 [facility] Comment on above: Performed By: #### 8 5123 #### [facility] [address] [place] [address], [place] Glucose [Mass/Vol] 284 mg/dL High 70-100 [facility] Comment on above: Performed By: #### 8 5123 #### [facility] [address] [place] [address], [place] Glucose [Mass/Vol] 243 mg/dL High 70-100 [facility] Comment on above: Performed By: #### 8 5123 #### [facility] [address] [place] [address], [place] Glucose [Mass/Vol] 82 mg/dL Normal 70-100 [facility] Comment on above: Performed By: #### 8 5123 #### [facility] [address] [place] [address], [facility] ARTERIAL BLOOD GAS WITH ICAo n 06-11-2019 BASE EXCESS 13 mmol/L High -2-3 [facility] Comment on above: Order Comment: RESUL TS CHECKED AND CALLED. ACCURATELY READ BACK BY ARNULFO MOSER RN Performed By: #### 8 4511 #### [facility] [address] [place] [address], [facility] DELIVERY SYSTEMS NASAL CANNULA Normal [facility] Comment on above: Order Comment: RESUL TS CHECKED AND CALLED. ACCURATELY READ BACK BY ARNULFO MOSER RN Performed By: #### 8 4511 #### [facility] [address] [place] [address], [facility] HCO3 (Bld) [Moles/Vol] 41 mmol/L Critically high 21-28 [facility] Comment on above: Order Comment: RESUL TS CHECKED AND CALLED. ACCURATELY READ BACK BY ARNULFO MOSER RN Performed By: #### 8 3561 #### [facility] [address] [place] [address], [place] IONIZED CALCIUM 1.10 mmol/L Low 1.13-1.32 [facility] Comment on above: Order Comment: RESUL TS CHECKED AND CALLED. ACCURATELY READ BACK BY ARNULFO MOSER RN Performed By: #### 8 3291 #### [facility] [address] [place] [address], [facility] LPM 3.0 LPM Normal [facility] Comment on above: Order Comment: RESUL TS CHECKED AND CALLED. ACCURATELY READ BACK BY ARNULFO MOSER RN Performed By: #### 8 4511 #### [facility] [address] Oxygen (Bld) [Partial pressure] 63 mm[Hg] Low 83-108 [facility] Comment on above: Order Comment: RESUL TS CHECKED AND CALLED. ACCURATELY READ BACK BY ARNULFO MOSER RN Performed By: #### 8 4511 #### [facility] [address] [facility]. [address] Oxygen saturation in Blood 91.9 % Low 94.0-97.0 [facility] Comment on above: Order Comment: RESUL TS CHECKED AND CALLED. ACCURATELY READ BACK BY ARNULFO MOSER RN Performed By: #### 8 4511 #### [facility] [address] [facility]. [address] PCO2 70 mmHg Critically high 35-45 [facility] Comment on above: Order Comment: RESUL TS CHECKED AND CALLED. ACCURATELY READ BACK BY ARNULFO MOSER RN Performed By: #### 8 4511 #### [facility] [address] [facility]. [address] pH (Bld) 7.38 [pH] Normal 7.35-7.45 [facility] Comment on above: Order Comment: RESUL TS CHECKED AND CALLED. ACCURATELY READ BACK BY ARNULFO MOSER RN Performed By: #### 8 4511 #### [facility] [address] BASIC METABOLIC PANELon 12-0 Calcium [Mass/Vol] 8.6 mg/dL Normal 8.6-10.3 [facility] Comment on above: Order Comment: No: D o not add to previous draw Performed By: #### 4 1000, 26532, 81561, 91002 #### [facility] [address] [place] [address], [facility] Chloride [Moles/Vol] 97 mmol/L Low 98-107 [facility] Comment on above: Order Comment: No: D o not add to previous draw Performed By: #### 4 1000, 18963, 68728, 34786 #### [facility] [address] [place] [address], [place] CO2 [Moles/Vol] 40 mmol/L High 21-31 [facility] Comment on above: Order Comment: No: D o not add to previous draw Performed By: #### 4 1000, 17149, 26974, 59374 #### [facility] [address] [place] [address], [facility] Creatinine [Mass/Vol] 1.62 mg/dL High 0.70-1.30 [facility] Comment on above: Order Comment: No: D o not add to previous draw Performed By: #### 4 1000, 28188, 14908, 83375 #### [facility] [address] [place] [address], [facility] GFR/1.73 sq M predicted among blacks MDRD (S/P/Bld) [Vol rate/Area] 52 ml/min/1.73sq m Abnormal >60 [facility] Comment on above: Order Comment: No: D o not add to previous draw Performed By: #### 4 1000, 64168, 62559, 64337 #### [facility] [address] [place] [address], [place] GFR/1.73 sq M predicted among non-blacks MDRD (S/P/Bld) [Vol rate/Area] 43 ml/min/1.73sq m Abnormal >60 [facility] Comment on above: Order Comment: No: D o not add to previous draw Performed By: #### 4 1000, 89342, 52726, 50746 #### [facility] [address] [place] [address], [place] Glucose [Mass/Vol] 82 mg/dL Normal 70-100 [facility] Comment on above: Order Comment: No: D o not add to previous draw Performed By: #### 4 1000, 17529, 01556, 89860 #### [facility] [address] [place] [address], [facility] Potassium [Moles/Vol] 4.0 mmol/L Normal 3.5-5.1 [facility] Comment on above: Order Comment: No: D o not add to previous draw Performed By: #### 4 1000, 43088, 26154, 64329 #### [facility] [address] [place] [address], [facility] Sodium [Moles/Vol] 141 mmol/L Normal 136-145 [facility] Comment on above: Order Comment: No: D o not add to previous draw Performed By: #### 4 1000, 28155, 50853, 85274 #### [facility] [address] [place] [address], [facility] Urea nitrogen [Mass/Vol] 33 mg/dL High 7-25 [facility] Comment on above: Order Comment: No: D o not add to previous draw Performed By: #### 4 1000, 36583, 66921, 04564 #### [facility] [address] [place] [id number], [facility] BNP (B-TYPE NATRIURETIC PEPT TANG)on 06-11-2019 Natriuretic peptide B (Bld) [Mass/Vol] 21 pg/mL Normal 0-100 [facility] Comment on above: Order Comment: If no t done in ED No: Do not add to previous draw Result Comment: Give n the appropriate clinical setting a BNP result of >100 pg/mL indicates congestive heart failure. Performed By: #### 8 5123 #### [facility] [address] CBC W/DIFFon 06-11-2019 ABS BASOPHILS 0.0 10*3/uL Normal 0.0-0.2 [facility] Comment on above: Order Comment: No: D o not add to previous draw Performed By: #### 5 0103 #### [facility] [address] [place] [address], [facility] ABS IMM GRANS 0.0 10*3/uL Normal 0.0-0.2 [facility] Comment on above: Order Comment: No: D o not add to previous draw Performed By: #### 5 0103 #### [facility] [address] [place] [address], [facility] ABS NEUTROPHILS 7.1 10*3/uL Normal 1.6-7.6 [facility] Comment on above: Order Comment: No: D o not add to previous draw Performed By: #### 5 0103 #### [facility] [address] [facility] [place] [address], [facility] Basophils/100 WBC (Bld) 0.3 % Normal 0.0-1.0 [facility] Comment on above: Order Comment: No: D o not add to previous draw Performed By: #### 5 0103 #### [facility] [address] [facility] [place] [address], [facility] Eosinophils (Bld) [#/Vol] 0.2 10*3/uL Normal 0.0-0.5 [facility] Comment on above: Order Comment: No: D o not add to previous draw Performed By: #### 5 0103 #### [facility] [address] [facility] [place] [address], [facility] Eosinophils/100 WBC (Bld) 1.8 % Normal 0.0-6.0 [facility] Comment on above: Order Comment: No: D o not add to previous draw Performed By: #### 5 0103 #### [facility] [address] [facility] [facility] Erythrocyte distribution width (RBC) [Ratio] 13.7 % Normal 11.5-15.0 [facility] Comment on above: Order Comment: No: D o not add to previous draw Performed By: #### 5 0103 #### [facility] [address] [place] [address], [facility] Hematocrit (Bld) [Volume fraction] 43.1 % Normal 39.0-50.0 [facility] Comment on above: Order Comment: No: D o not add to previous draw Performed By: #### 5 0103 #### [facility] [address] [facility]. [address] Hemoglobin (Bld) [Mass/Vol] 12.9 g/dL Low 13.0-17.0 [facility] Comment on above: Order Comment: No: D o not add to previous draw Performed By: #### 5 0103 #### [facility] [address] [place] [address], [facility] IMMATURE GRANS 0.3 % Normal 0.0-1.0 [facility] Comment on above: Order Comment: No: D o not add to previous draw Performed By: #### 5 3 #### [facility] [address] [facility] [place] [address], [facility] Lymphocytes (Bld) [#/Vol] 1.7 10*3/uL Normal 1.2-4.0 [facility] Comment on above: Order Comment: No: D o not add to previous draw Performed By: #### 5 0103 #### [facility] [address] [facility] [place] [address], [facility] Lymphocytes/100 WBC (Bld) 17.6 % Low 20.0-45.0 [facility] Comment on above: Order Comment: No: D o not add to previous draw Performed By: #### 5 3 #### [facility] [address] [place] [address], [facility] MCH (RBC) [Entitic mass] 28.6 pg Normal 27.0-33.0 [facility] Comment on above: Order Comment: No: D o not add to previous draw Performed By: #### 5 0103 #### [facility] [address] [place] [id number], [facility] MCHC (RBC) [Mass/Vol] 29.9 g/dL Low 32.0-35.0 [facility] Comment on above: Order Comment: No: D o not add to previous draw Performed By: #### 5 0103 #### [facility] [address] [place] [id number], [facility] MCV (RBC) [Entitic vol] 95.6 fL Normal 82.0-98.0 [facility] Comment on above: Order Comment: No: D o not add to previous draw Performed By: #### 5 0103 #### [facility] [address] [place] [id number], [facility] Monocytes (Bld) [#/Vol] 0.7 10*3/uL Normal 0.1-1.0 [facility] Comment on above: Order Comment: No: D o not add to previous draw Performed By: #### 5 3 #### [facility] [address] [place] [id number], [facility] MONOS 6.9 % Normal 5.0-12.0 [facility] Comment on above: Order Comment: No: D o not add to previous draw Performed By: #### 5 0103 #### [facility] [address] [place] [id number], [facility] Neutrophils/100 WBC (Bld) 73.1 % High 40.0-72.0 [facility] Comment on above: Order Comment: No: D o not add to previous draw Performed By: #### 5 3 #### [facility] [address] [place] [id number], [facility] Nucleated RBC/100 WBC (Bld) [Ratio] 0 % Normal 0-0 [facility] Comment on above: Order Comment: No: D o not add to previous draw Performed By: #### 5 0103 #### [facility] [address] [place] [address], [facility] PLAT CNT 157 10*3/uL Normal 150-400 [facility] Comment on above: Order Comment: No: D o not add to previous draw Performed By: #### 5 0103 #### [facility] [address] [place] [address], [facility] RBC (Bld) [#/Vol] 4.51 10*6/uL Normal 4.20-5.70 [facility] Comment on above: Order Comment: No: D o not add to previous draw Performed By: #### 5 0103 #### [facility] [address] [facility] [place] [address], [facility] WBC (Bld) [#/Vol] 9.68 10*3/uL Normal 4.00-10.60 [facility] Comment on above: Order Comment: No: D o not add to previous draw Performed By: #### 5 0103 #### [facility] [address] [facility]. [address] History and Physicalon 06-11 History and Physical MR#: [id number] [facility] Pt. Name: Mackenzie Dumont Admitted: 06/11/2019 Date of : 1955 Attending Physician: Cynthia Miguel M.D. Room #: [id number] Discharge Date: HISTORY AND PHYSICAL CHIEF COMPLAINT: Shortness of breath. HISTORY OF PRESENT ILLNESS: Mr. Peterson is a 63-year-old male with a past medical history of diastolic congestive heart failure, obstructive sleep apnea, obesity hypoventilation syndrome, history of DVT, hypertension, CAD, and diabetes mellitus type 2, who was transferred from [facility] for progressively worsening shortness of breath [...] diarrhea, weakness, or numbness. On presentation to [facility], the patient was in respiratory distress. [...] Diastolic CHF exacerbation: ABG on presentation to [facility] revealed a pH of 7.27, pCO2 [...] His baseline is 1.45 to 1.55 per [facility] notes. The patient will be on Lasix [...] Miguel M.D. Date Trans: 06/11/2019 12:14 P/mmo [id number] Normal [facility] MAGNESIUM BLOODon 06-11-2019 Magnesium [Mass/Vol] 1.9 mg/dL Normal 1.9-2.7 [facility] Comment on above: Order Comment: No: D o not add to previous draw Performed By: #### 4 1000, 43008, 05288, 29601 #### [facility] [address] [place] [address], [place] PHOSPHORUS BLOODon 9 Phosphate [Mass/Vol] 3.6 mg/dL Normal 2.5-5.0 [facility] Comment on above: Order Comment: No: D o not add to previous draw Performed By: #### 4 1000, 59873, 21875, 36644 #### [facility] [address] [place] [address], [place] POC GLUCOSE LABon 06-11-2019 Glucose [Mass/Vol] 168 mg/dL High 70-100 [facility] Comment on above: Performed By: #### 8 5123 #### [facility] [address] [place] [address], [place] Glucose [Mass/Vol] 235 mg/dL High 70-100 [facility] Comment on above: Performed By: #### 8 5499 #### [facility] [address] [place] [address], [place] PORTABLE CHEST 1 VIEWon PORTABLE CHEST 1 VIEW [facility] Department of Radiology [address] [place] [address] Patient Name: MACKENZIE DUMONT : 1955 Sex: M Age: Race: White Pt. Location: [id number] Patient Status: I Ordered Date: 06/11/2019 10:25:00 [...] Electronically signed by:Carlos Eduardo Loera. Transcribed by: [email or web address], User Resident: Electronically Signed by: CARLOS EDUARDO LOERA @ 06/11/2019 03:03 PM Normal [facility] Comment on above: Order Comment: R/O C HF TROPONIN-Ion 06-11-2019 Troponin I.cardiac [Mass/Vol] 0.12 ng/mL Critically high 0.00-0.04 [facility] Comment on above: Order Comment: No: D o not add to previous draw Result Comment: REFE RENCE RANGES: 0.00 - 0.04 ng/ml NORMAL 0.05 - 0.50 ng/ml INDETERMINATE > 0.50 ng/ml CONSISTENT WITH AN M.I. Performed By: #### 3 5200 #### [facility] [address] [facility]. [address] Troponin I.cardiac [Mass/Vol] 0.15 ng/mL Critically high 0.00-0.04 [facility] Comment on above: Result Comment: M-TR OPONIN INITIAL CRITICAL HIGH; RESPUN AND RETESTED M-CRITICAL RESULT(S) REVIEWED, CALLED TO AND READ BACK BY ANDRE FELIX RN AT 1504 REFERENCE RANGES: 0.00 - 0.04 ng/ml NORMAL 0.05 - 0.50 ng/ml INDETERMINATE > 0.50 ng/ml CONSISTENT WITH AN M.I. Performed By: #### 4 1000, 83453, 75076, 61794 #### [facility] [address] [facility]. [address] Vital Signs Date Time Vital Sign Value Performing Clinician Josue hernandez 11-18-2024 09:46-0400 Body height 175.3 cm Jeffry Garces DPM Work Phone: [facility] 11-18-2024 09:46-0400 Body mass index (BMI) [Ratio] 46.67 kg/m2 Jeffry Garces DPM Work Phone: [facility] 11-18-2024 09:46-0400 Body weight 143.34 kg Jeffry Garces DPM Work Phone: [facility] 11-18-2024 09:46-0400 Respiratory rate 18 /min Jeffry Garces DPM Work Phone: [facility] 09-02-2024 10:08-0500 Body height 175.3 cm Jeffry Brown DPM Work Phone: [facility] 09-02-2024 10:08-0500 Body mass index (BMI) [Ratio] 46.67 kg/m2 Jeffry Brown DPM Work Phone: [facility] 09-02-2024 10:08-0500 Body weight 143.34 kg Jeffry Brown DPM Work Phone: [facility] 09-02-2024 10:08-0500 Respiratory rate 18 /min Jeffry Brown DPM Work Phone: [facility] 05-06-2024 12:00-0400 Body height 175.3 cm Jeffry Brown DPM Work Phone: [facility] 05-06-2024 12:00-0400 Body mass index (BMI) [Ratio] 46.67 kg/m2 Jeffry Brown DPM Work Phone: [facility] 05-06-2024 12:00-0400 Body weight 143.34 kg Jeffry Brown DPM Work Phone: [facility] 05-06-2024 12:00-0400 Diastolic blood pressure 80 mm[Hg] Jeffry Brown DPM Work Phone: [facility] 05-06-2024 12:00-0400 Heart rate 85 /min Jeffry Brown DPM Work Phone: [facility] 05-06-2024 12:00-0400 Systolic blood pressure 126 mm[Hg] Jeffry Brown DPM Work Phone: [facility] 02-26-2024 11:06-0400 Body height 175.3 cm Jfefry Brown DPM Work Phone: [facility] 02-26-2024 11:06-0400 Body mass index (BMI) [Ratio] 46.67 kg/m2 Ejffry Brown DPM Work Phone: [facility] 02-26-2024 11:06-0400 Body weight 143.34 kg Jeffry Garces DPM Work Phone: [facility] 02-26-2024 11:06-0400 Diastolic blood pressure 80 mm[Hg] Jeffry Garces DPM Work Phone: [facility] 02-26-2024 11:06-0400 Heart rate 89 /min Jeffry Garces DPM Work Phone: [facility] 02-26-2024 11:06-0400 Systolic blood pressure 129 mm[Hg] Jeffry Garces DPM Work Phone: [facility] 06-04-2021 19:26-0500 Body temperature 96.69 [degF] Latoya Moyer DO Work Phone: [facility] 06-04-2021 19:20-0500 Diastolic blood pressure 66 mm[Hg] Latoya Moyer DO Work Phone: [facility] 06-04-2021 19:20-0500 Systolic blood pressure 174 mm[Hg] Latoya Moyer DO Work Phone: [facility] 06-04-2021 19:18-0500 SaO2% (BldA) [Mass fraction] 96 % Latoya Moyer DO Work Phone: [facility] 06-04-2021 19:12-0500 Heart rate 71 /min Latoya Moyer DO Work Phone: [facility] 06-04-2021 19:12-0500 Respiratory rate 16 /min Latoya Moyer DO Work Phone: [facility] Encounters Encounter Date Encounter Type Care Provider Facility Start: 11-18-2024 End: 11-18-2024 Bamboo flowsheet Jeffry Garces DPM Work Phone: [facility] Start: 11-18-2024 End: 11-18-2024 Bamboo flowsheet Jeffry Garces DPM Work Phone: [facility] Start: 11-18-2024 End: 11-18-2024 Patient encounter procedure Jeffry Garces DPM Work Phone: [facility] Comment on above: Diabetes mellitus du e to underlying condition with diabetic polyneuropathy, with long-term current use of insulin (CMS/HCC) (Primary Dx); Pain due to onychomycosis of toenails of both feet Start: 11-18-2024 End: 11-18-2024 ambulatory JEFFRY GARCES Not Available Start: 09-20-2024 End: 09-20-2024 Telephone encounter Kristin Victoria DO Work Phone: [facility] Comment on above: Antibiotic Start: 09-02-2024 End: 09-02-2024 Bamboo flowsheet Jeffry Garces DPM Work Phone: [facility] Start: 09-02-2024 End: 09-02-2024 Bamboo flowsheet Jeffry Garces DPM Work Phone: [facility] Start: 09-02-2024 End: 09-02-2024 Patient encounter procedure Jeffry Garces DPM Work Phone: [facility] Comment on above: Diabetes mellitus du e to underlying condition with diabetic polyneuropathy, with long-term current use of insulin (CMS/[facility]) (Primary Dx); Pain due to onychomycosis of toenails of both feet Start: 09-02-2024 End: 09-02-2024 ambulatory JEFFRY GARCES Not Available Start: 06-16-2024 End: 06-16-2024 ambulatory [facility] Start: 05-06-2024 End: 05-06-2024 Bamboo flowsheet Jeffry Garces DPM Work Phone: [facility] Start: 05-06-2024 End: 05-06-2024 Bamboo flowsheet Jeffry Garces DPM Work Phone: [facility] Start: 05-06-2024 End: 05-06-2024 Patient encounter procedure eJffry Garces DPM Work Phone: [facility] Comment on above: Diabetes mellitus du e to underlying condition with diabetic polyneuropathy, with long-term current use of insulin (CMS/[facility]) (Primary Dx); Pain due to onychomycosis of toenails of both feet Start: 05-06-2024 End: 05-06-2024 ambulatory JEFFRY GARCES Not Available Start: 02-26-2024 End: 02-26-2024 Bamboo flowsheet Jeffry Garces DPM Work Phone: [facility] Start: 02-26-2024 End: 02-26-2024 Bamboo flowsheet Jeffry Garces DPM Work Phone: [facility] Start: 02-26-2024 End: 02-26-2024 Patient encounter procedure Jeffry Garces DPM Work Phone: [facility] Comment on above: Diabetes mellitus du e to underlying condition with diabetic polyneuropathy, with long-term current use of insulin (CMS/[facility]) (Primary Dx); Onychomycosis; Toe pain, bilateral Start: 02-26-2024 End: 02-26-2024 ambulatory JEFFRY GARCES Not Available Start: 12-11-2023 End: 12-11-2023 ambulatory JEFFRY GARCES Not Available Start: 09-04-2023 End: 09-04-2023 ambulatory JEFFRY GARCES Not Available Start: 06-26-2023 End: 06-26-2023 ambulatory JEFFRY GARCES Not Available Start: 06-25-2023 End: 06-25-[address] [facility] Start: 04-08-2022 End: 04-09-[address] JOSH PRO Facility:H1 Start: 10-29-2021 End: 10-30-[address] JOSH PRO Facility:[facility]1 Start: 06-04-2021 End: 06-05-2021 Emergency department patient visit JOSH PRO [facility] Start: 06-04-2021 End: 06-04-2021 Emergency department patient visit Latoya Moyer DO Work Phone: [facility] ED Comment on above: Hypoglycemia (Primar y Dx) Start: 06-11-2019 End: 06-15-2019 Evaluation and management of inpatient [place] Facility:[facility] Procedures Date Procedure Procedure Detail Performing Clinician Start: 04-08-[address] JOSH PRO Comment on above: Performed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
== END 2024-11-24 10:00 | disposition home or self-care (01) ==
LOC: CARD 09:59
PROVIDERS: Visit Provider Nurse Practitioner Family
DX: I50.32 Chronic diastolic (congestive) heart failure (principal)
CPT/HCPCS: 93306

== ENCOUNTER 2024-12-15 07:05 | Outpatient (OUT) | payer MEDICARE, SELFPAY ==
--- OUTSIDE RECORDS SUMMARY | 2024-12-15 07:13 | XMS_ITS | CCD ---
Author Organization [facility] Care Team Providers Care Oem Sales Manager Name Role Phone Sea Voss Admitting Unavailable Sea Voss Attending Unavailable JOSH PRO Primary Care Unavailable CRIS HERRING Referring Unavailable MD Procedure Practitioner Unavailab REEMA Moreira ABD Surgeon Unavailable MD Procedure Practitioner Unavailab CYNTHIA Moreno Surgeon Unavailable MD Procedure Practitioner Unavailab Sea Espinoza Surgeon Unavailable [...] Consulting Unavailable MOUKARBEL, DR LAZARO Admitting Unavailable JEFFRY GARCES Attending Unavailable JEFFRY GARCES Attending Unavailable Unavailable Primary Care Provider UnavailJosh Harp MD Primary Care Provider JEFFRY GARCES Attending Unavailable JEFFRY GARCES Attending Unavailable JEFFRY GARCES Attending Unavailable JEFFRY GARCES Attending Unavailable JEFFRY GARCES Attending Unavailable MICH WHELAN Attending Unavailable Allergies Allergy Classification Reported Allergen(s) Allergy Type Date of Onset Reaction(s) Facility (1 source) 95491,00; Translations: [Unknown] Propensity to adverse reactions (disorder) 9 [facility] [place] [facility] Medications Current Medications Medication Drug Class(es) [...] Active Problems Problem Classification Problem Date Documented Da te Episodic/Chronic Congestive heart failure; nonhypertensive (4 sources) Chronic diastolic (congestive) heart failure; Translations: [CHRONIC DIASTOLIC HEART FAILURE] Onset: 10-29-2021 Chronic Diabetes mellitus with complications (20 sources) Diabetic mononeuropathy; 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 Please have him double his lasix, 40mg BID with follow up BMP/BNP in 1 week. Thanks! Spoke with patient and he's currently taking lasix 40mg once daily. He will start taking it twice daily per Aminata, and have labs drawn in 1 week. Patient verbalized understanding. Orders faxed to [facility]. [facility] Office Visiton 06-16-2024 Follow-up visit [id number] Mackenzie Dumont 1955 M Date Provider Department Center 06/16/2024 MICH MOREJON JERICHO [facility] Family History Problem Relation Age of Onset Coronary artery disease Brother Other Brother Family Status - Relation Status Age at Brother Level of Service:49448 MD OFFICE/OUTPATIENT ESTABLISHED LOW MDM 20 MIN Reason for Visit and Comments: Coronary Artery Disease [187] Congestive Heart Failure [127] Hypertension [865538] Normal [place] LIPID PROFILEon 04-08-2022 CHOL-HDL RATIO NORM SEE BELOW Normal [facility] Comment on above: Result Comment: 3.3 - 4.4 LOW RISK 4.4 - 7.1 AVERAGE RISK 7.1 - 11.0 MODERATE RISK >11.0 HIGH RISK Performed By: #### U SHILA, LIPID, CMP #### [facility] [address] [address] [address] Constantin Yepez Cholesterol [Mass/Vol] 127 mg/dL Normal <=200 [facility] Comment on above: Performed By: #### U SHILA, LIPID, CMP #### [facility] [address] [address] [address] Constantin Yepez Cholesterol in HDL [Mass/Vol] 39 mg/dL Critically low 40-60 [facility] Comment on above: Performed By: #### U SHILA, LIPID, CMP #### [facility] [address] [address] [address] Constantin Yepez Cholesterol in LDL [Mass/Vol] 65.0 mg/dL Normal [facility] Comment on above: Performed By: #### U SHILA, LIPID, CMP #### [facility] [address] [address] [address] Constantin Yepez Cholesterol.total/Chol esterol in HDL [Mass ratio] 3.3 {ratio} Normal [facility] Comment on above: Performed By: #### U SHILA, LIPID, CMP #### [facility] [address] [address] [address] Constantin Yepez HDL NORMAL > or = 60 mg/dl - LOW CARDIOVASCULAR RISK <40 mg/dl - HIGH CARDIOVASCULAR RISK Normal [facility] Comment on above: Performed By: #### U SHILA, LIPID, CMP #### [facility] [address] [place] [address] Dr. Constantin Yepez LDL CALC NORMAL SEE BELOW Normal [facility] Comment on above: Result Comment: <100 mg/dl OPTIMAL 100 - 129 mg/dl NEAR OR ABOVE OPTIMAL 130 - 159 mg/dl BORDERLINE HIGH 160 - 189 mg/dl HIGH >190 mg/dl VERY HIGH Performed By: #### U SHILA, LIPID, CMP #### [facility] [address] [address] [address] Constantin Yepez Triglyceride [Mass/Vol] 115 mg/dL Normal <=150 [facility] Comment on above: Performed By: #### U SHILA, LIPID, CMP #### [facility] [address] [address] [address] Constantin Yepez VLDL CALC 23.0 mg/dL Normal [facility] Comment on above: Performed By: #### U SHILA, LIPID, CMP #### [facility] [address] [address] [address] Constantin Yepez PROF 14(COMP METB)on 022 Albumin [Mass/Vol] 3.4 g/dL Normal 3.4-5.0 [facility] Comment on above: Performed By: #### U SHILA, LIPID, CMP #### [facility] [address] [address] [address] Constantin Yepez Albumin/Globulin [Mass ratio] 1.0 {ratio} Normal [facility] Comment on above: Performed By: #### U SHILA, LIPID, CMP #### [facility] [address] [address] [address] Constantin Yepez ALP [Catalytic activity/Vol] 66 U/L Normal 46-116 [facility] Comment on above: Performed By: #### U SHILA, LIPID, CMP #### [facility] [address] [address] [address] Constantin Yepez ALT [Catalytic activity/Vol] 28 U/L Normal 16-63 [facility] Comment on above: Performed By: #### U SHILA, LIPID, CMP #### [facility] [address] [address] [address] Constantin Yepez Anion gap [Moles/Vol] 11.6 mmol/L Normal [facility] Comment on above: Performed By: #### U SHILA, LIPID, CMP #### [facility] [address] [address] [address] Constantin Yepez AST [Catalytic activity/Vol] 13 U/L Critically low 15-37 [facility] Comment on above: Performed By: #### U SHILA, LIPID, CMP #### [facility] [address] [address] [address] Constantin Yepez Bilirubin [Mass/Vol] 0.5 mg/dL Normal 0.2-1.0 [facility] Comment on above: Performed By: #### U SHILA, LIPID, CMP #### [facility] [address] [address] [address] Constantin Yepez Calcium [Mass/Vol] 8.6 mg/dL Normal 8.5-10.1 [facility] Comment on above: Performed By: #### U SHILA, LIPID, CMP #### [facility] [address] [address] [address] Constantin Yepez Chloride [Moles/Vol] 108 mmol/L Critically high 98-107 [facility] Comment on above: Performed By: #### U SHILA, LIPID, CMP #### [facility] [address] [address] [address] Constantin Yepez CO2 [Moles/Vol] 30.0 mmol/L Normal 21.0-32.0 [facility] Comment on above: Performed By: #### U SHILA, LIPID, CMP #### [facility] [address] [address] [address] Constantin Yepez Creatinine [Mass/Vol] 1.39 mg/dL Critically high 0.70-1.30 [facility] Comment on above: Performed By: #### U SHILA, LIPID, CMP #### [facility] [address] [place] [address] Dr. Constantin Yepez EGFR-AF ARGENTINE >60 Normal >=60 [facility] Comment on above: Performed By: #### U SHILA, LIPID, CMP #### [facility] [address] [place] [address] Dr. Constantin Yepez EGFR-NON AF ARGENTINE 51 mL/min/1.73m2 Critically low >=60 [facility] Comment on above: Performed By: #### U SHILA, LIPID, CMP #### [facility] [address] [address] [address] Constantin Yepez Globulin (S) [Mass/Vol] 3.5 g/dL Normal [facility] Comment on above: Performed By: #### U SHILA, LIPID, CMP #### [facility] [address] [address] [address] Constantin Yepez Glucose [Mass/Vol] 77 mg/dL Normal 74-106 [facility] Comment on above: Performed By: #### U SHILA, LIPID, CMP #### [facility] [address] [place] [address] Dr. Constantin Yepez Potassium [Moles/Vol] 3.6 mmol/L Normal 3.5-5.1 [facility] Comment on above: Performed By: #### U SHILA, LIPID, CMP #### [facility] [address] [place] [address] Dr. Constantin Yepez Protein [Mass/Vol] 6.9 g/dL Normal 6.4-8.2 [facility] Comment on above: Performed By: #### U SHILA, LIPID, CMP #### [facility] [address] [place] [address] Dr. Constantin Yepez Sodium [Moles/Vol] 146 mmol/L Critically high 136-145 [facility] Comment on above: Performed By: #### U SHILA, LIPID, CMP #### [facility] [address] [place] [address] Dr. Constantin Yepez Urea nitrogen [Mass/Vol] 24.0 mg/dL Critically high 7.0-18.0 [facility] Comment on above: Performed By: #### U SHILA, LIPID, CMP #### [facility] [address] [place] [address] Dr. Constantin Yepez Urea nitrogen/Creatinine [Mass ratio] 17.3 mg/mg Normal [facility] Comment on above: Performed By: #### U SHILA, LIPID, CMP #### [facility] [address] [address] [address] Constantin Yepez URIC ACID SERUMon 04-08-2022 Urate [Mass/Vol] 6.3 mg/dL Normal 3.5-7.2 [facility] Comment on above: Performed By: #### U SHILA, LIPID, CMP #### [facility] [address] [address] [address] Constantin Yepez PROF CHEM 8 (BAS METB)on Anion gap [Moles/Vol] 7.6 mmol/L Normal [facility] Comment on above: Performed By: #### B MP #### [facility] [address] [address] [address] Constantin Yepez Calcium [Mass/Vol] 8.3 mg/dL Critically low 8.5-10.1 [facility] Comment on above: Performed By: #### B MP #### [facility] [address] [address] [address] Constantin Yepez Chloride [Moles/Vol] 107 mmol/L Normal 98-107 [facility] Comment on above: Performed By: #### B MP #### [facility] [address] [address] [address] Constantin Yepez CO2 [Moles/Vol] 31.9 mmol/L Normal 21.0-32.0 [facility] Comment on above: Performed By: #### B MP #### [facility] [address] [address] [address] Constantin Yepez Creatinine [Mass/Vol] 1.62 mg/dL Critically high 0.70-1.30 [facility] Comment on above: Performed By: #### B MP #### [facility] [address] [address] [address] Constantin Yepez EGFR-AF ARGENTINE 52 mL/min/1.73m2 Critically low >=60 [facility] Comment on above: Performed By: #### B MP #### [facility] [address] [address] [address] Constantin Yepez EGFR-NON AF ARGENTINE 43 mL/min/1.73m2 Critically low >=60 [facility] Comment on above: Performed By: #### B MP #### [facility] [address] [address] [address] Constantin Yepez Glucose [Mass/Vol] 97 mg/dL Normal 74-106 [facility] Comment on above: Performed By: #### B MP #### [facility] [address] [address] [address] Constantin Yepez Potassium [Moles/Vol] 4.5 mmol/L Normal 3.5-5.1 [facility] Comment on above: Performed By: #### B MP #### [facility] [address] [address] [address] Constantin Yepez Sodium [Moles/Vol] 142 mmol/L Normal 136-145 [facility] Comment on above: Performed By: #### B MP #### [facility] [address] [address] [address] Constantin Yepez Urea nitrogen [Mass/Vol] 30.0 mg/dL Critically high 7.0-18.0 [facility] Comment on above: Performed By: #### B MP #### [facility] [address] [address] [address] Constantin Yepez Urea nitrogen/Creatinine [Mass ratio] 18.5 mg/mg Normal [facility] Comment on above: Performed By: #### B MP #### [facility] [address] [address] [address] Constantin Yepez Arterial Blood Gaseson 06-04 Cr Test PASS Normal [facility] Comment on above: Performed By: #### A BG #### [facility] [address] [place] [address] Laboratory Scientist: Stevan Kerns MD Body Temp. 37.0 [facility] Comment on above: Performed By: #### A BG #### [facility] [address] [place] [address] Laboratory Scientist: Stevan Kerns MD HCO3 (Bld) [Moles/Vol] 29.7 mmol/L High 22-26 M [facility] Comment on above: Performed By: #### A BG #### [facility] [address] [place] [address] Laboratory Scientist: Stevan Kerns MD O2 Device/Flow/% O2 Mask Normal [facility] Comment on above: Performed By: #### A BG #### [facility] [address] [place] [address] Laboratory Scientist: Stevan Kerns MD Oxygen (Bld) [Partial pressure] 87.4 mm[Hg] Normal 80-100 [facility] Comment on above: Performed By: #### A BG #### [facility] [address] [place] [address] Laboratory Scientist: Stevan Kerns MD Oxygen saturation in Blood 96.1 % Normal 95-98 [facility] Comment on above: Performed By: #### A BG #### [facility] [address] [place] [address] Laboratory Scientist: Stevan Kerns MD pCO2 55.2 mmHg High 35-45 [facility] Comment on above: Performed By: #### A BG #### [facility] [address] [place] [address] Laboratory Scientist: Stevan Kerns MD pH (Bld) 7.348 [pH] Low 7.35-7.45 [facility] Comment on above: Performed By: #### A BG #### [facility] [address] [place], [place] [id number] Laboratory Scientist: Stevan Kerns MD Positive Base Excess 2.6 mmol/L High 0.0-2.0 [facility] Comment on above: Performed By: #### A BG #### [facility] [address] [place] [address] Laboratory Scientist: Stevan Kerns MD Pt. Position SUPINE [facility] Comment on above: Performed By: #### A BG #### [facility] [address] [place], [place] [id number] Laboratory Scientist: Stevan Kerns MD Site Drawn Left Brachial Artery Normal [facility] Comment on above: Performed By: #### A BG #### [facility] [address] [place], [place] [id number] Laboratory Scientist: Stevan Kerns MD Carboxy Hgb NOT REPORTED Normal 0-5 [facility] Comment on above: Performed By: #### A BG #### [facility] [address] [place] [address] Laboratory Scientist: Stevan Kerns MD FIO2 NOT REPORTED Normal [facility] Comment on above: Performed By: #### A BG #### [facility] [address] [place], [place] [id number] Laboratory Scientist: Stevan Kerns MD Methemoglobin NOT REPORTED Normal 0.0-1.9 [facility] Comment on above: Performed By: #### A BG #### [facility] [address] [place] [address] Dr[address] [place], [place] [id number] Laboratory Scientist: Stevan Kerns MD Mode NOT REPORTED Normal [facility] Comment on above: Performed By: #### A BG #### [facility] [address] [place], [place] [id number] Laboratory Scientist: Stevan Kerns MD Negative Base Excess NOT REPORTED Normal 0.0-2.0 [facility] Comment on above: Performed By: #### A BG #### [facility] [address] [place] [address] Laboratory Scientist: Stevan Kerns MD Notification Time NOT REPORTED Normal [facility] Comment on above: Performed By: #### A BG #### [facility] [address] [place] [address] Laboratory Scientist: Stevan Kerns MD Notification: NOT REPORTED Normal [facility] Comment on above: Performed By: #### A BG #### [facility] [address] [place] [address] [place] [address] Laboratory Scientist: Stevan Kerns MD Oxyhemoglobin NOT REPORTED Normal 95.0-98.0 [facility] Comment on above: Performed By: #### A BG #### [facility] [address] [place], [place] [id number] Laboratory Scientist: Stevan Kerns MD pCO2 Adj'd for Temp NOT REPORTED Normal [facility] Comment on above: Performed By: #### A BG #### [facility] [address] [place] [address] [place] [address] Laboratory Scientist: Stevan Kerns MD PEEP/CPAP NOT REPORTED Normal [facility] Comment on above: Performed By: #### A BG #### [facility] [address] [place] [address] [place] [address] Laboratory Scientist: Stevan Kerns MD pH Adjst'd for Temp. NOT REPORTED Normal 7.350-7.450 M [facility] Comment on above: Performed By: #### A BG #### [facility] [address] [place] [address] [place] [address] Laboratory Scientist: Stevan Kerns MD pO2 Adjst'd for Temp NOT REPORTED Normal 80.0-100.0 [facility] Comment on above: Performed By: #### A BG #### [facility] [address] [place] [address] [place] [place], [place] [id number] Laboratory Scientist: Stevan Kerns MD PSV NOT REPORTED Normal [facility] Comment on above: Performed By: #### A BG #### [facility] [address] [place] [address] Dr. [place], [place] [id number] Laboratory Scientist: Stevan Kerns MD Respiratory Rate NOT REPORTED Normal [facility] Comment on above: Performed By: #### A BG #### [facility] [address] [place], [place] [phone] Laboratory Scientist: Stevan Kerns MD Set Rate NOT REPORTED Normal [facility] Comment on above: Performed By: #### A BG #### [facility] [address] [place], [place] [address] Laboratory Scientist: Stevan Kerns MD Text for Respiratory NOT REPORTED Normal [facility] Comment on above: Performed By: #### A BG #### [facility] [address] [place], [place] [id number] Laboratory Scientist: Stevan Kerns MD Total Hb NOT REPORTED Normal 12.0-16.0 [facility] Comment on above: Performed By: #### A BG #### [facility] [address] [place], [place] [address] Laboratory Scientist: Stevan Kerns MD Total Rate NOT REPORTED Normal [facility] Comment on above: Performed By: #### A BG #### [facility] [address] [place], [place] [address] Laboratory Scientist: Stevan Kerns MD [place] NOT REPORTED Normal [facility] Comment on above: Performed By: #### A BG #### [facility] [address] [place], [place] [phone] Laboratory Scientist: Stevan Kerns MD Blood Gas, Arterialon 2020 Cr Test PASS [facility] Carboxyhemoglobin NOT REPORTED 0 - 5 % [facility] Comment on above: FIO2 NOT REPORTED [facility] HCO3 (Bld) [Moles/Vol] 29.7 mmol/L High 22 - 26 mmol/L [facility] Interpretation and review of laboratory results Abnormal [facility] Methemoglobin NOT REPORTED 0.0 - 1.9 % [facility] alth Mode NOT REPORTED [facility] Negative Base Excess, Art NOT REPORTED 0.0 - 2.0 mmol/L [facility] NOTIFICATION NOT REPORTED [facility] th NOTIFICATION TIME NOT REPORTED [facility] O2 Device/Flow/% O2 Mask [facility] alth Oxygen saturation in Blood 96.1 % 95 - 98 % [facility] Oxyhemoglobin NOT REPORTED 95.0 - 98.0 % [facility] pCO2, Art, Temp Adj NOT REPORTED [facility] pCO2, Arterial 55.2 High [facility] th Peep/Cpap NOT REPORTED [facility] pH, Art, Temp Adj NOT REPORTED [facility] pH, Arterial 7.348 Low [facility] pO2, Art, Temp Adj NOT REPORTED [facility] pO2, Arterial 87.4 [facility] h Positive Base Excess, Art 2.6 mmol/L High 0.0 - 2.0 mmol/L [facility] PSV NOT REPORTED [facility] Pt Temp 37.0 [facility] Pt. Position SUPINE [facility] Respiratory Rate NOT REPORTED [facility] Sample Site Left Brachial Artery [facility] Set Rate NOT REPORTED [facility] Text for Respiratory NOT REPORTED [facility] Total Hb NOT REPORTED 12.0 - 16.0 g/dl [facility] Total Rate NOT REPORTED [facility] [place] NOT REPORTED [facility] CBC Auto Differentialon 05-08 Absolute Eos # 0.20 [facility] th Absolute Immature Granulocyte 0.06 [facility] Absolute Lymph # 3.98 High [facility] alth Absolute [place] # 1.22 High [facility] lth Basophils (Bld) [#/Vol] 0.05 10*3/uL [facility] Basophils/100 WBC (Bld) 0 % 0 - 2 % [facility] Differential Type NOT REPORTED [facility] Eosinophils/100 WBC (Bld) 1 % 1 - 4 % [facility] Hematocrit (Bld) [Volume fraction] 45.3 % 40.7 - 50.3 % [facility] Hemoglobin.gastrointes tinal spec 1 Ql (Stl) 14.7 g/dL 13.0 - 17.0 g/dL [facility] Immature granulocytes/100 WBC (Bld) 0 % 0 [facility] Interpretation and review of laboratory results Abnormal [facility] Lymphocytes/100 WBC (Bld) 25 % 24 - 43 % [facility] MCH (RBC) [Entitic mass] 29.5 pg 25.2 - 33.5 pg [facility] MCHC (RBC) [Mass/Vol] 32.5 g/dL 28.4 - 34.8 g/dL [facility] MCV (RBC) [Entitic vol] 91.0 fL 82.6 - 102.9 fL [facility] Monocytes/100 WBC (Bld) 8 % 3 - 12 % [facility] NRBC Automated 0.0 0.0 per 100 WBC [facility] Platelet distribution width (Bld) [Ratio] 12.6 % 11.8 - 14.4 % [facility] Platelet Estimate NOT REPORTED [facility] Platelet mean volume (Bld) [Entitic vol] 9.3 fL 8.1 - 13.5 fL [facility] Platelets (Bld) [#/Vol] 195 10*3/uL [facility] RBC (Bld) [#/Vol] 4.98 10*6/uL 4.21 - 5.7 7 m/uL [facility] RBC (Bld) [#/Vol] NOT REPORTED [facility] Segmented neutrophils/100 WBC (Bld) 66 % High 36 - 65 % [facility] Segs Absolute 10.73 High [facility] WBC (Bld) [#/Vol] 16.2 10*3/uL High [facility] WBC (Bld) [#/Vol] NOT REPORTED [facility] CBC with Diffon 06-04-2021 Abs. Basophil 0.05 k/uL Normal 0.00-0.20 [facility] Comment on above: Performed By: #### C MPX, TROPI, PT, CDP, MG #### [address] [place], [place] [id number] Laboratory Scientist: Stevan Kerns MD Abs.Imm.Granulocyte 0.06 k/uL Normal 0.00-0.30 [facility] Comment on above: Performed By: #### C MPX, TROPI, PT, CDP, MG #### [facility] [address] [place], [place] [id number] Laboratory Scientist: Stevan Kerns MD Abs.Neutrophil (Seg) 10.73 k/uL High 1.50-8.10 [facility] Comment on above: Performed By: #### C MPX, TROPI, PT, CDP, MG #### [facility] [address] [place], [facility] Laboratory Scientist: Stevan Kerns MD Basophils/100 WBC (Bld) 0 % Normal 0-2 [facility] Comment on above: Performed By: #### C MPX, TROPI, PT, CDP, MG #### [facility] [address] [place], [facility]83 Laboratory Scientist: Stevan Kerns MD Eosinophils (Bld) [#/Vol] 0.20 10*3/uL Normal 0.00-0.44 [facility] Comment on above: Performed By: #### C MPX, TROPI, PT, CDP, MG #### [address] [place], [place] [address] Laboratory Scientist: Stevan Kerns MD Eosinophils/100 WBC (Bld) 1 % Normal 1-4 [facility] Comment on above: Performed By: #### C MPX, TROPI, PT, CDP, MG #### [address] [place], [facility]83 Laboratory Scientist: Stevan Krens MD Erythrocyte distribution width (RBC) [Ratio] 12.6 % Normal 11.8-14.4 [facility] Comment on above: Performed By: #### C MPX, TROPI, PT, CDP, MG #### [address] [place], [facility]83 Laboratory Scientist: Stevan Kerns MD Hematocrit (Bld) [Volume fraction] 45.3 % Normal 40.7-50.3 [facility] Comment on above: Performed By: #### C MPX, TROPI, PT, CDP, MG #### [address] [place], [facility]83 Laboratory Scientist: Stevan Kerns MD Hemoglobin (Bld) [Mass/Vol] 14.7 g/dL Normal 13.0-17.0 [facility] Comment on above: Performed By: #### C MPX, TROPI, PT, CDP, MG #### [facility] [address] [place], [place] [id number] Laboratory Scientist: Stevan Kerns MD Immature granulocytes/100 WBC (Bld) 0 % Normal 0 [facility] Comment on above: Performed By: #### C MPX, TROPI, PT, CDP, MG #### [facility] [address] [place], [facility]83 Laboratory Scientist: Stevan Kerns MD Lymphocytes (Bld) [#/Vol] 3.98 10*3/uL High 1.10-3.70 [facility] Comment on above: Performed By: #### C MPX, TROPI, PT, CDP, MG #### [address] [place], [facility]83 Laboratory Scientist: Stevan Kerns MD Lymphocytes/100 WBC (Bld) 25 % Normal 24-43 [facility] Comment on above: Performed By: #### C MPX, TROPI, PT, CDP, MG #### [address] [place], [facility]83 Laboratory Scientist: Stevan Kerns MD MCH (RBC) [Entitic mass] 29.5 pg Normal 25.2-33.5 [facility] Comment on above: Performed By: #### C MPX, TROPI, PT, CDP, MG #### [address] [place], [facility]83 Laboratory Scientist: Stevan Kerns MD MCHC (RBC) [Mass/Vol] 32.5 g/dL Normal 28.4-34.8 [facility] Comment on above: Performed By: #### C MPX, TROPI, PT, CDP, MG #### [address] [place] [address] Laboratory Scientist: Stevan Kerns MD MCV (RBC) [Entitic vol] 91.0 fL Normal 82.6-102.9 [facility] Comment on above: Performed By: #### C MPX, TROPI, PT, CDP, MG #### [facility] [address] [place] [address] Laboratory Scientist: Stevan Kerns MD Monocytes (Bld) [#/Vol] 1.22 10*3/uL High 0.10-1.20 [facility] Comment on above: Performed By: #### C MPX, TROPI, PT, CDP, MG #### [facility] [address] [place], [place] [id number] Laboratory Scientist: Stevan Kerns MD Monocytes/100 WBC (Bld) 8 % Normal 3-12 [facility] Comment on above: Performed By: #### C MPX, TROPI, PT, CDP, MG #### [address] [place], [facility]83 Laboratory Scientist: Stevan Kerns MD Neutrophil (Seg) 66 % High 36-65 [facility] Comment on above: Performed By: #### C MPX, TROPI, PT, CDP, MG #### [address] [place], [place] [id number] Laboratory Scientist: Stevan Kerns MD NRBC Automated 0.0 per 100 WBC Normal 0.0 [facility] Comment on above: Performed By: #### C MPX, TROPI, PT, CDP, MG #### [address] [place], [place] [id number] Laboratory Scientist: Stevan Kerns MD Platelet mean volume (Bld) [Entitic vol] 9.3 fL Normal 8.1-13.5 [facility] Comment on above: Performed By: #### C MPX, TROPI, PT, CDP, MG #### [facility] [address] [place] [address] Laboratory Scientist: Stevan Kerns MD Platelets (Bld) [#/Vol] 195 10*3/uL Normal 138-453 [facility] Comment on above: Performed By: #### C MPX, TROPI, PT, CDP, MG #### [facility] [address] [place] [address] Dr. [place], [place] [id number] Laboratory Scientist: Stevan Kerns MD RBC (Bld) [#/Vol] 4.98 10*6/uL Normal 4.21-5.77 [facility] Comment on above: Performed By: #### C MPX, TROPI, PT, CDP, MG #### [facility] [address] [place], [place] [id number] Laboratory Scientist: Stevan Kerns MD WBC (Bld) [#/Vol] 16.2 10*3/uL High 3.5-11.3 [facility] Comment on above: Performed By: #### C MPX, TROPI, PT, CDP, MG #### [address] [place], [place] [address]226383 Laboratory Scientist: Stevan Kerns MD Auto Diff Performed NOT REPORTED Normal [facility] Comment on above: Performed By: #### C MPX, TROPI, PT, CDP, MG #### [address] [place], [place] [id number] Laboratory Scientist: Stevan Kerns MD Platelet Comment NOT REPORTED Normal [facility] Comment on above: Performed By: #### C MPX, TROPI, PT, CDP, MG #### [address] [place], [place] [id number] Laboratory Scientist: Stevan Kerns MD RBC morphology finding Nom (d) NOT REPORTED Normal [facility] Comment on above: Performed By: #### C MPX, TROPI, PT, CDP, MG #### [address] [place] [address] Laboratory Scientist: Stevan Kerns MD WBC Morphology NOT REPORTED Normal [facility] Comment on above: Performed By: #### C MPX, TROPI, PT, CDP, MG #### [facility] [address] [place] [address] Laboratory Scientist: Stevan Kerns MD Comp Metabolic Pr/rfx MGon 1 08-04-2020 AST [Catalytic activity/Vol] 28 U/L Normal <40 [facility] Comment on above: Performed By: #### C MPX, TROPI, PT, CDP, MG #### [facility] [address] [place] [address] Laboratory Scientist: Stevan Kerns MD Glucose [Mass/Vol] 19 mg/dL Critically low 70-99 [facility] Comment on above: Performed By: #### C MPX, TROPI, PT, CDP, MG #### [address] [place] [address] Laboratory Scientist: Stevan Kerns MD Potassium [Moles/Vol] 3.4 mmol/L Low 3.7-5.3 [facility] Comment on above: Performed By: #### C MPX, TROPI, PT, CDP, MG #### [address] [place] [address] Laboratory Scientist: Stevan Kerns MD (cont.) [facility] Comment on above: Result Comment: Aver age GFR for 60-69 years old: 85 mL/min/1.73sq m Chronic Kidney Disease: <60 mL/min/1.73sq m Kidney failure: <15 mL/min/1.73sq m eGFR calculated using average adult body mass. Additional eGFR calculator available at: http://www.Unigo.com/multiple_crcl_2012.htm Performed By: #### C MPX, TROPI, PT, CDP, MG #### [facility] [address] [place] [address] Laboratory Scientist: Stevan Kerns MD Albumin [Mass/Vol] 4.5 g/dL Normal 3.5-5.2 [facility] Comment on above: Performed By: #### C MPX, TROPI, PT, CDP, MG #### [facility] [address] [place] [address] Laboratory Scientist: Stevan Kerns MD Albumin/Glob Ratio 1.2 Normal 1.0-2.5 [facility] Comment on above: Performed By: #### C MPX, TROPI, PT, CDP, MG #### [facility] [address] [place], [place] [id number] Laboratory Scientist: Stevan Kerns MD Alkaline Phos 98 U/L Normal 40-129 [facility] Comment on above: Performed By: #### C MPX, TROPI, PT, CDP, MG #### [facility] [address] [place], [place] [id number] Laboratory Scientist: Stevan Kerns MD ALT [Catalytic activity/Vol] 31 U/L Normal 5-41 [facility] Comment on above: Performed By: #### C MPX, TROPI, PT, CDP, MG #### [facility] [address] [place] [address] Laboratory Scientist: Stevan Kerns MD Anion gap [Moles/Vol] 13 mmol/L Normal 9-17 [facility] Comment on above: Performed By: #### C MPX, TROPI, PT, CDP, MG #### [facility] [address] [place], [place] [id number] Laboratory Scientist: Stevan Kerns MD Bilirubin [Mass/Vol] 0.36 mg/dL Normal 0.3-1.2 [facility] Comment on above: Performed By: #### C MPX, TROPI, PT, CDP, MG #### [facility] [address] [place] [address] Laboratory Scientist: Stevan Kerns MD BUN/CRE Ratio 19 Normal 9-20 [facility] Comment on above: Performed By: #### C MPX, TROPI, PT, CDP, MG #### [facility] [address] [place] [address] Laboratory Scientist: Stevan Kerns MD Calcium [Mass/Vol] 9.4 mg/dL Normal 8.6-10.4 [facility] Comment on above: Performed By: #### C MPX, TROPI, PT, CDP, MG #### [facility] [address] [place], [facility]83 Laboratory Scientist: Stevan Kerns MD Chloride [Moles/Vol] 105 mmol/L Normal 98-107 [facility] Comment on above: Performed By: #### C MPX, TROPI, PT, CDP, MG #### [address] [place] [address] Laboratory Scientist: Stevan Kerns MD CO2 [Moles/Vol] 27 mmol/L Normal 20-31 [facility] Comment on above: Performed By: #### C MPX, TROPI, PT, CDP, MG #### [address] [place] [address] Laboratory Scientist: Stevan Kerns MD Creatinine [Mass/Vol] 1.78 mg/dL High 0.70-1.20 [facility] Comment on above: Performed By: #### C MPX, TROPI, PT, CDP, MG #### [facility] [address] [place] [address] Laboratory Scientist: Stevan Kerns MD GFR, Amer 47 mL/min Low >60 [facility] Comment on above: Performed By: #### C MPX, TROPI, PT, CDP, MG #### [facility] [address] [place] [address] Laboratory Scientist: Stevan Kerns MD GFR,non Amer 38 mL/min Low >60 [facility] Comment on above: Performed By: #### C MPX, TROPI, PT, CDP, MG #### [facility] [address] [place] [address] Laboratory Scientist: Stevan Kerns MD Protein [Mass/Vol] 8.3 g/dL Normal 6.4-8.3 [facility] Comment on above: Performed By: #### C MPX, TROPI, PT, CDP, MG #### [facility] [address] [place] [address] Laboratory Scientist: Stevan Kerns MD Sodium [Moles/Vol] 145 mmol/L High 135-144 [facility] Comment on above: Performed By: #### C MPX, TROPI, PT, CDP, MG #### [facility] [address] [place] [address] Laboratory Scientist: Stevan Kerns MD Staging: Normal [facility] Comment on above: Result Comment: Stag e 1: Some kidney damage normal GFR Stage 2: Mild kidney damage GFR 60-89 Stage 3: Moderate kidney damage GFR 30-59 Stage 4: Severe kidney damage GFR 15-29 Stage 5: Severe kidney damage GFR <15 ESRD - chronic treatment by dialysis or transplant Performed By: #### C MPX, TROPI, PT, CDP, MG #### [address] [place] [address] Laboratory Scientist: Stevan Kerns MD Urea nitrogen [Mass/Vol] 34 mg/dL High 8-23 [facility] Comment on above: Performed By: #### C MPX, TROPI, PT, CDP, MG #### [facility] [address] [place] [address] Laboratory Scientist: Stevan Kerns MD Comprehensive Metabolic Pane l w/ Reflex to MG 06-04-2021 Albumin [Mass/Vol] 4.5 g/dL 3.5 - 5.2 g/dL [facility] Albumin/Globulin [Mass ratio] 1.2 {ratio} [facility] ALP (Bld) [Catalytic activity/Vol] 98 U/L 40 - 129 U/L [facility] ALT [Catalytic activity/Vol] 31 U/L 5 - 41 U/L [facility] Anion gap [Moles/Vol] 13 mmol/L 9 - 17 mmol/L [facility] AST [Catalytic activity/Vol] 28 U/L <40 [facility] Bilirubin [Mass/Vol] 0.36 mg/dL 0.3 - 1 .2 mg/dL [facility] Calcium [Mass/Vol] 9.4 mg/dL 8.6 - 10. 4 mg/dL [facility] Chloride [Moles/Vol] 105 mmol/L 98 - 10 7 mmol/L [facility] CO2 [Moles/Vol] 27 mmol/L 20 - 31 mmol/L [facility] Creatinine [Mass/Vol] 1.78 mg/dL High 0.70 - 1.20 mg/dL [facility] Free PSA/Total PSA [Mass fraction] 8.3 g/dL 6.4 - 8.3 g/dL [facility] GFR 47 mL/min Low >60 [facility] GFR Non- 38 mL/min Low >60 [facility] Glucose [Mass/Vol] 19 mg/dL Critically low 70 - 99 mg/dL [facility] Interpretation and review of laboratory results Abnormal [facility] Potassium [Moles/Vol] 3.4 mmol/L Low 3.7 - 5.3 mmol/L [facility] Sodium [Moles/Vol] 145 mmol/L High 135 - 144 mmol/L [facility] Urea nitrogen (BldV) [Mass/Vol] 34 mg/dL High 8 - 23 mg/dL [facility] Urea nitrogen/Creatinine (Bld) [Mass ratio] 19 [facility] Glucose, Whole Bloodon 06-04 Glucose [Mass/Vol] 125 mg/dL High 74 - 100 mg/dL [facility] Interpretation and review of laboratory results Abnormal [facility] Glucose [Mass/Vol] 134 mg/dL High 74 - 100 mg/dL [facility] Interpretation and review of laboratory results Abnormal [facility] Glucose [Mass/Vol] 97 mg/dL 74 - 100 mg/dL [facility] Glucose [Mass/Vol] 60 mg/dL Low 74 - 100 mg/dL [facility] Interpretation and review of laboratory results Abnormal [facility] Glucose [Mass/Vol] 93 mg/dL 74 - 100 mg/dL [facility] Laboratory - Chemistry and C hemistry - challengeon 06-04-2021 GFR/1.73 sq M.predicted MDRD (S/P/Bld) [Vol rate/Area] [facility] Comment on above: Average GFR for 60-6 9 years old: 85 mL/min/1.73sq m Chronic Kidney Disease: <60 mL/min/1.73sq m Kidney failure: <15 mL/min/1.73sq m eGFR calculated using average adult body mass. Additional eGFR calculator available at: http://www.Kuznech/multiple_crcl_2012.htm Stage 1: Some kidney damage normal GFR Stage 2: Mild kidney damage GFR 60-89 Stage 3: Moderate kidney damage GFR 30-59 Stage 4: Severe kidney damage GFR 15-29 Stage 5: Severe kidney damage GFR <15 ESRD - chronic treatment by dialysis or transplant Lactic Acidon 06-04-2021 Lactate [Moles/Vol] 1.0 mmol/L Normal 0.5-2.2 [facility] Comment on above: Performed By: #### L AC #### [facility] [address] [place] [address] Laboratory Scientist: Stevan Kerns MD Lactate [Moles/Vol] 1 mmol/L 0.5 - 2. 2 mmol/L [facility] Magnesiumon 06-04-2021 Magnesium [Mass/Vol] 1.8 mg/dL Normal 1.6-2.6 [facility] Comment on above: Performed By: #### C MPX, TROPI, PT, CDP, MG #### [facility] [address] [place] [address] Laboratory Scientist: Stevan Kerns MD Magnesium [Mass/Vol] 1.8 mg/dL 1.6 - 2 .6 mg/dL [facility] Microscopic Urinalysison - [facility] Amorphous, UA NOT REPORTED [facility] B[facility], [facility]A NOT REPORTED None [facility] th Casts UA NOT REPORTED /LPF [facility] Crystals, UA NOT REPORTED None /HPF [facility] th Epithelial Cells UA 0 TO 2 [facility] Mucus, UA NOT REPORTED None [facility] Other Observations UA NOT REPORTED NOT REQ. M [facility] RBC, UA 0 TO 2 [facility] Renal Epithelial, UA NOT REPORTED 0 /HPF [facility] Trichomonas, UA NOT REPORTED None [facility] ealt WBC, UA 0 TO 2 [facility] Yeast, UA NOT REPORTED None [facility] POCT glucoseOrdered By: Alesha Gonzalez on 06-04-2021 Glucose [Mass/Vol] 60 mg/dL [facility] Interpretation and review of laboratory results Normal [facility] PTon 06-04-2021 INR Coag (PPP) [Relative time] 0.9 {INR} Normal [facility] Comment on above: Result Comment: Non-therapeutic Range: INR = 0.9-1.2 Therapeutic Range: Moderate Anticoagulant Intensity: INR = 2.0-3.0 High Anticoagulant Intensity: INR = 2.5-3.5 Performed By: #### C MPX, TROPI, PT, CDP, MG #### [facility] [address] [place] [address] Laboratory Scientist: Stevan Kerns MD PT Coag (PPP) [Time] 12.4 s Normal 11.5-14.2 [facility] Comment on above: Performed By: #### C MPX, TROPI, PT, CDP, MG #### [facility] [address] [place] [address] Laboratory Scientist: Stevan Kerns MD Protime-INRon 06-04-2021 INR Coag (Bld) [Relative time] 0.9 {INR} [facility] Comment on above: Non-therapeutic Range: INR = 0.9-1.2 Therapeutic Range: Moderate Anticoagulant Intensity: INR = 2.0-3.0 High Anticoagulant Intensity: INR = 2.5-3.5 PT Coag (PPP) [Time] 12.4 s [facility] Troponinon 06-04-2021 Troponin, High Sens 13 ng/L Normal 0-22 [facility] Comment on above: Result Comment: High Sensitivity Troponin values cannot be compared with other Troponin methodologies. Patients with high levels of Biotin oral intake (i.e >5mg/day) may have falsely decreased Troponin levels. Samples collected within 8 hours of biotin intake may require additional information for diagnosis. Performed By: #### C MPX, TROPI, PT, CDP, MG #### [facility] [address] [place], [place] [id number] Laboratory Scientist: Stevan Kerns MD Troponin Interp. NOT REPORTED Normal [facility] Comment on above: Performed By: #### C MPX, TROPI, PT, CDP, MG #### [facility] [address] [place], [place] [id number] Laboratory Scientist: Stevan Kerns MD Troponin T NOT REPORTED Normal <0.03 [facility] Comment on above: Performed By: #### C MPX, TROPI, PT, CDP, MG #### [facility] [address] [place] [address] [place] [address] Laboratory Scientist: Stevan Kerns MD Troponin Interp NOT REPORTED [facility] Troponin, High Sensitivity 13 ng/L 0 - 22 ng/L [facility] Comment on above: High Sensitivity Troponin values cannot be compared with other Troponin methodologies. Patients with high levels of Biotin oral intake (i.e >5mg/day) may have falsely decreased Troponin levels. Samples collected within 8 hours of biotin intake may require additional information for diagnosis. [facility] Urinalysis, Routineon 2020 Bilirubin, SemiQt,Ur Negative Normal NEG [facility] Comment on above: Performed By: #### U MICAO, UA #### [facility] [address] [place] [address] [place] [address] Laboratory Scientist: Stevan Kerns MD Blood, Urine 1+ Abnormal NEG [facility] Comment on above: Performed By: #### U MICAO, UA #### [facility] [address] [place] [address] Laboratory Scientist: Stevan Kerns MD Clarity (U) Clear Normal CLEAR [facility] Comment on above: Performed By: #### U MICAO, UA #### [facility] [address] [place] [address] Dr. [place], [place] [id number] Laboratory Scientist: Stevan Kerns MD Color (U) Yellow Normal YEL [facility] Comment on above: Performed By: #### U MICAO, UA #### [facility] [address] [place] [address] Dr. [place], [place] [id number] Laboratory Scientist: Stevan Kerns MD Glucose Ql (U) Negative Normal NEG [facility] Comment on above: Performed By: #### U MICAO, UA #### [address] [place], [place] [address]83 Laboratory Scientist: Stevan Kerns MD Ketones Ql (U) Negative Normal NEG [facility] Comment on above: Performed By: #### U MICAO, UA #### [facility] [address] [place] [address] Dr. [place], [place] [id number] Laboratory Scientist: Stevan Kerns MD Leukocyte esterase Test strip Ql (U) Negative Normal NEG [facility] Comment on above: Performed By: #### U MICAO, UA #### [address] [place], [place] [id number] Laboratory Scientist: Stevan Kerns MD Nitrite,Ur Negative Normal NEG [facility] Comment on above: Performed By: #### U MICAO, UA #### [facility] [address] [place] [address] Dr. [place], [place] [id number] Laboratory Scientist: Stevan Kerns MD PH,Ur 5.5 Normal 5.0-9.0 [facility] Comment on above: Performed By: #### U MICAO, UA #### [facility] [address] [place], [place] [id number] Laboratory Scientist: Stevan Kerns MD Protein Ql (U) 2+ Abnormal NEG [facility] Comment on above: Performed By: #### U MICAO, UA #### [facility] [address] [place], [place] [id number] Laboratory Scientist: Stevan Kerns MD Spec. [place],Ur >1.030 High 1.010-1.020 [facility] Comment on above: Performed By: #### U MICAO, UA #### [facility] [address] [place], [facility]83 Laboratory Scientist: Stevan Kerns MD Urobilinogen,Ur Normal Normal NORM [facility] Comment on above: Performed By: #### U MICAO, UA #### [facility] [address] [place], [place] [id number] Laboratory Scientist: Stevan Kerns MD Comment NOT REPORTED Normal [facility] Comment on above: Performed By: #### U MICAO, UA #### [facility] [address] [place], [facility]83 Laboratory Scientist: Stevan Kerns MD Urinalysis, reflex to micros copicon 06-04-2021 Bilirubin Urine Negative NEGATIVE [facility] lth Color, UA Yellow Yellow [facility] Glucose, Ur Negative NEGATIVE [facility] Interpretation and review of laboratory results Abnormal [facility] Ketones Ql (U) Negative NEGATIVE [facility] Leukocyte esterase Test strip Ql (U) Negative NEGATIVE [facility] Nitrite, Urine Negative NEGATIVE [facility] pH, UA 5.5 [facility] Protein, UA 2+ Abnormal NEGATIVE [facility] Specific [place], UA >1.030 High [facility] Turbidity UA Clear Clear [facility] Urinalysis Comments NOT REPORTED [facility] Urine Hgb 1+ Abnormal NEGATIVE [facility] Urobilinogen, Urine Normal Normal [facility] Urinalysis,Microon 1 ----- Normal [facility] Comment on above: Performed By: #### U MICAO, UA #### [facility] [address] [place] [address] Laboratory Scientist: Stevan Kerns MD Epithelial cells LM Ql (Urine sed) 0 TO 2 Normal 0-5 [facility] Comment on above: Performed By: #### U MICAO, UA #### [facility] [address] [place] [address] [place] [address] Laboratory Scientist: Stevan Kerns MD Urine RBC's 0 TO 2 Normal 0-2 [facility] Comment on above: Performed By: #### U MICAO, UA #### [facility] [address] [place], [place] [id number] Laboratory Scientist: Stevan Kerns MD Urine WBC's 0 TO 2 Normal 0-5 [facility] Comment on above: Performed By: #### U MICAO, UA #### [address] [place], [place] [id number] Laboratory Scientist: Stevan Kerns MD Amorphous sediment LM Ql (Urine sed) NOT REPORTED Normal [facility] Comment on above: Performed By: #### U MICAO, UA #### [address] [place], [facility] Laboratory Scientist: Stevan Kerns MD Bacteria NOT REPORTED Normal [facility] Comment on above: Performed By: #### U MICAO, UA #### [address] [place], [place] [id number] Laboratory Scientist: Stevan Kerns MD Casts NOT REPORTED Normal [facility] Comment on above: Performed By: #### U MICAO, UA #### [facility] [address] [place] [address] [place] [address] Laboratory Scientist: Stevan Kerns MD Crystals LM Nom (Urine sed) NOT REPORTED Normal [facility] Comment on above: Performed By: #### U MICAO, UA #### [address] [place], [place] [id number] Laboratory Scientist: Stevan Kerns MD Epithelial, Renal NOT REPORTED Normal 0 [facility] Comment on above: Performed By: #### U MICAO, UA #### [facility] [address] [place], [place] [id number] Laboratory Scientist: Stevan Kerns MD Mucus Strands NOT REPORTED Normal [facility] Comment on above: Performed By: #### U MICAO, UA #### [facility] [address] [place], [place] [id number] Laboratory Scientist: Stevan Kerns MD Other Observations NOT REPORTED Normal [facility] Comment on above: Performed By: #### U MICAO, UA #### [facility] [address] [place], [place] [id number] Laboratory Scientist: Stevan Kerns MD Trichomonas NOT REPORTED Normal [facility] Comment on above: Performed By: #### U MICAO, UA #### [facility] [address] [place], [place] [id number] Laboratory Scientist: Stevan Kerns MD Yeast NOT REPORTED Normal [facility] Comment on above: Performed By: #### U MICAO, UA #### [facility] [address] [place] [address] Laboratory Scientist: Stevan Kerns MD ARTERIAL BLOOD GAS W/COOXon 06-15-2019 BASE EXCESS 15 mmol/L High -2-3 [facility] Comment on above: Order Comment: No: D o not add to previous draw Performed By: #### 4 999, 04478, 17603, 05035 #### [facility] [address] [place] [address], [place] COHB 2.5 % High 0.0-1.5 [facility] Comment on above: Order Comment: No: D o not add to previous draw Performed By: #### 4 1000, 13731, 74998, 90055 #### [facility] [address] [place] [address], [place] DELIVERY SYSTEMS RA Normal [facility] Comment on above: Order Comment: No: D o not add to previous draw Performed By: #### 4 1000, 84290, 66233, 76959 #### [facility] [address] [place] [address], [place] HCO3 (Bld) [Moles/Vol] 42 mmol/L Critically high 21-28 [facility] Comment on above: Order Comment: No: D o not add to previous draw Performed By: #### 4 1000, 40570, 56084, 88373 #### [facility] [address] [place] [address], [place] METHB 1.2 % Normal 0.0-1.5 [facility] Comment on above: Order Comment: No: D o not add to previous draw Performed By: #### 4 1000, 91642, 04001, 70334 #### [facility] [address] [place] [address], [place] MODALITY RA Normal [facility] Comment on above: Order Comment: No: D o not add to previous draw Performed By: #### 4 1000, 59955, 47533, 53956 #### [facility] [address] [place] [address], [place] Oxygen (Bld) [Partial pressure] 49 mm[Hg] Critically low 83-108 [facility] Comment on above: Order Comment: No: D o not add to previous draw Performed By: #### 4 1000, 21542, 88965, 11620 #### [facility] [address] [place] [address], [place] Oxygen saturation in Blood 87.3 % Critically low 94.0-97.0 [facility] Comment on above: Order Comment: No: D o not add to previous draw Performed By: #### 4 1000, 85916, 18684, 98662 #### [facility] [address] [place] [address], [place] PCO2 60 mmHg Critically high 35-45 [facility] Comment on above: Order Comment: No: D o not add to previous draw Performed By: #### 4 1000, 94321, 83838, 70704 #### [facility] [address] [place] [address], [facility] pH (Bld) 7.45 [pH] Normal 7.35-7.45 [facility] Comment on above: Order Comment: No: D o not add to previous draw Performed By: #### 4 1000, 92175, 43400, 74395 #### [facility] [address] [place] [address], [facility] THB 14.2 g/dL Normal 12.0-16.3 [facility] Comment on above: Order Comment: No: D o not add to previous draw Performed By: #### 4 1000, 37841, 15677, 01552 #### [facility] [address] [place] [address], [facility] BASIC METABOLIC PANELon 12-1 Calcium [Mass/Vol] 9.0 mg/dL Normal 8.6-10.3 [facility] Comment on above: Order Comment: No: D o not add to previous draw Performed By: #### 4 1000, 94301, 11649, 37257 #### [facility] [address] [place] [address], [facility] Chloride [Moles/Vol] 93 mmol/L Low 98-107 [facility] Comment on above: Order Comment: No: D o not add to previous draw Performed By: #### 4 1000, 57330, 21940, 00167 #### [facility] [address] [place] [address], [place] CO2 [Moles/Vol] 36 mmol/L High 21-31 [facility] Comment on above: Order Comment: No: D o not add to previous draw Performed By: #### 4 1000, 22919, 76558, 90328 #### [facility] [address] [place] [address], [place] Creatinine [Mass/Vol] 1.30 mg/dL Normal 0.70-1.30 [facility] Comment on above: Order Comment: No: D o not add to previous draw Performed By: #### 4 1000, 06397, 48317, 44140 #### [facility] [address] [place] [address], [place] GFR/1.73 sq M predicted among blacks MDRD (S/P/Bld) [Vol rate/Area] mL/min/{1.73_m2} Normal >60 [facility] Comment on above: Order Comment: No: D o not add to previous draw Performed By: #### 4 1000, 08268, 09555, 48232 #### [facility] [address] [place] [address], [place] GFR/1.73 sq M predicted among non-blacks MDRD (S/P/Bld) [Vol rate/Area] 56 ml/min/1.73sq m Abnormal >60 [facility] Comment on above: Order Comment: No: D o not add to previous draw Performed By: #### 4 999, 77406, 18324, 91464 #### [facility] [address] [place] [address], [place] Glucose [Mass/Vol] 147 mg/dL High 70-100 [facility] Comment on above: Order Comment: No: D o not add to previous draw Performed By: #### 4 1000, 12590, 12248, 81639 #### [facility] [address] [place] [address], [place] Potassium [Moles/Vol] 4.2 mmol/L Normal 3.5-5.1 [facility] Comment on above: Order Comment: No: D o not add to previous draw Performed By: #### 4 1000, 60907, 68955, 33746 #### [facility] [address] [place] [address], [place] Sodium [Moles/Vol] 136 mmol/L Normal 136-145 [facility] Comment on above: Order Comment: No: D o not add to previous draw Performed By: #### 4 1000, 83593, 48042, 45016 #### [facility] [address] [place] [address], [place] Urea nitrogen [Mass/Vol] 31 mg/dL High 7-25 [facility] Comment on above: Order Comment: No: D o not add to previous draw Performed By: #### 4 1000, 06385, 18743, 79639 #### [facility] [address] [place] [address], [place] MAGNESIUM BLOODon 06-15-2019 Magnesium [Mass/Vol] 2.0 mg/dL Normal 1.9-2.7 [facility] Comment on above: Order Comment: No: D o not add to previous draw Performed By: #### 4 1000, 80832, 73339, 35029 #### [facility] [address] [place] [address], [place] POC GLUCOSE LABon 06-15-2019 Glucose [Mass/Vol] 156 mg/dL High 70-100 [facility] Comment on above: Performed By: #### 4 1000, 75431, 73061, 15780 #### [facility] [address] [place] [address], [place] Glucose [Mass/Vol] 220 mg/dL High 70-100 [facility] Comment on above: Performed By: #### 4 1000, 26263, 91373, 48237 #### [facility] [address] [place] [address], [place] Glucose [Mass/Vol] 138 mg/dL High 70-100 [facility] Comment on above: Performed By: #### 4 1000, 55686, 89479, 68423 #### [facility] [address] [place] [address], [place] BASIC METABOLIC PANELon 12-0 Calcium [Mass/Vol] 8.9 mg/dL Normal 8.6-10.3 [facility] Comment on above: Order Comment: No: D o not add to previous draw Performed By: #### 4 1000, 49213, 54878, 96554 #### [facility] [address] [place] [address], [place] Chloride [Moles/Vol] 95 mmol/L Low 98-107 [facility] Comment on above: Order Comment: No: D o not add to previous draw Performed By: #### 4 1000, 54211, 25151, 05616 #### [facility] [address] [place] [address], [place] CO2 [Moles/Vol] 35 mmol/L High 21-31 [facility] [place] [facility] Comment on above: Order Comment: No: D o not add to previous draw Performed By: #### 4 1000, 22686, 05163, 43790 #### [facility] [address] [place] [address], [place] Creatinine [Mass/Vol] 1.35 mg/dL High 0.70-1.30 [facility] Comment on above: Order Comment: No: D o not add to previous draw Performed By: #### 4 1000, 80267, 42230, 84517 #### [facility] [address] [place] [address], [place] GFR/1.73 sq M predicted among blacks MDRD (S/P/Bld) [Vol rate/Area] mL/min/{1.73_m2} Normal >60 [facility] Comment on above: Order Comment: No: D o not add to previous draw Performed By: #### 4 1000, 14996, 42175, 31531 #### [facility] [address] [place] [address], [place] GFR/1.73 sq M predicted among non-blacks MDRD (S/P/Bld) [Vol rate/Area] 53 ml/min/1.73sq m Abnormal >60 [facility] Comment on above: Order Comment: No: D o not add to previous draw Performed By: #### 4 1000, 48730, 61229, 63168 #### [facility] [address] [place] [address], [place] Glucose [Mass/Vol] 172 mg/dL High 70-100 [facility] Comment on above: Order Comment: No: D o not add to previous draw Performed By: #### 4 1000, 38237, 88657, 84627 #### [facility] [address] [place] [address], [facility] Potassium [Moles/Vol] 4.0 mmol/L Normal 3.5-5.1 [facility] Comment on above: Order Comment: No: D o not add to previous draw Performed By: #### 4 1000, 31648, 99599, 50635 #### [facility] [address] [place] [address], [place] Sodium [Moles/Vol] 139 mmol/L Normal 136-145 [facility] Comment on above: Order Comment: No: D o not add to previous draw Performed By: #### 4 1000, 11809, 17198, 42095 #### [facility] [address] [place] [address], [facility] Urea nitrogen [Mass/Vol] 30 mg/dL High 7-25 [facility] Comment on above: Order Comment: No: D o not add to previous draw Performed By: #### 4 1000, 09456, 86991, 94976 #### [facility] [address] [place] [address], [place] CBC W/DIFFon 06-14-2019 ABS BASOPHILS 0.0 10*3/uL Normal 0.0-0.2 [facility] [place] [facility] Comment on above: Order Comment: No: D o not add to previous draw Performed By: #### 4 1000, 59465, 37888, 71571 #### [facility] [address] [place] [address], [facility] ABS IMM GRANS 0.0 10*3/uL Normal 0.0-0.2 [facility] [place] [facility] Comment on above: Order Comment: No: D o not add to previous draw Performed By: #### 4 1000, 87616, 56297, 23740 #### [facility] [address] [place] [address], [place] ABS NEUTROPHILS 5.7 10*3/uL Normal 1.6-7.6 [facility] Comment on above: Order Comment: No: D o not add to previous draw Performed By: #### 4 999, 64118, 66983, 82179 #### [facility] [address] [place] [address], [facility] Basophils/100 WBC (Bld) 0.2 % Normal 0.0-1.0 [facility] Comment on above: Order Comment: No: D o not add to previous draw Performed By: #### 4 999, 37433, 77830, 14593 #### [facility] [address] [facility] [place] [address], [facility] Eosinophils (Bld) [#/Vol] 0.2 10*3/uL Normal 0.0-0.5 [facility] Comment on above: Order Comment: No: D o not add to previous draw Performed By: #### 4 999, 12452, 05916, 60462 #### [facility] [address] [facility] [place] [address], [place] Eosinophils/100 WBC (Bld) 1.8 % Normal 0.0-6.0 [facility] Comment on above: Order Comment: No: D o not add to previous draw Performed By: #### 4 1000, 40226, 45109, 60670 #### [facility] [address] [place] [address], [place] Erythrocyte distribution width (RBC) [Ratio] 13.3 % Normal 11.5-15.0 [facility] Comment on above: Order Comment: No: D o not add to previous draw Performed By: #### 4 1000, 81095, 87969, 51763 #### [facility] [address] [place] [address], [facility] Hematocrit (Bld) [Volume fraction] 44.2 % Normal 39.0-50.0 [facility] Comment on above: Order Comment: No: D o not add to previous draw Performed By: #### 4 1000, 76409, 17815, 15821 #### [facility] [address] [place] [address], [facility] Hemoglobin (Bld) [Mass/Vol] 13.8 g/dL Normal 13.0-17.0 [facility] Comment on above: Order Comment: No: D o not add to previous draw Performed By: #### 4 1000, 82749, 90102, 67688 #### [facility] [address] [place] [address], [facility] IMMATURE GRANS 0.4 % Normal 0.0-1.0 [facility] [place] [facility] Comment on above: Order Comment: No: D o not add to previous draw Performed By: #### 4 1000, 40605, 51936, 76621 #### [facility] [address] [facility] [place] [address], [facility] Lymphocytes (Bld) [#/Vol] 1.6 10*3/uL Normal 1.2-4.0 [facility] Comment on above: Order Comment: No: D o not add to previous draw Performed By: #### 4 1000, 31490, 39496, 15002 #### [facility] [address] [place] [address], [place] Lymphocytes/100 WBC (Bld) 19.6 % Low 20.0-45.0 [facility] Comment on above: Order Comment: No: D o not add to previous draw Performed By: #### 4 1000, 73397, 11842, 70419 #### [facility] [address] [place] [address], [facility] MCH (RBC) [Entitic mass] 29.1 pg Normal 27.0-33.0 [facility] Comment on above: Order Comment: No: D o not add to previous draw Performed By: #### 4 1000, 06398, 58813, 89597 #### [facility] [address] [place] [address], [facility] MCHC (RBC) [Mass/Vol] 31.2 g/dL Low 32.0-35.0 [facility] Comment on above: Order Comment: No: D o not add to previous draw Performed By: #### 4 1000, 01506, 79111, 24345 #### [facility] [address] [place] [address], [facility] MCV (RBC) [Entitic vol] 93.2 fL Normal 82.0-98.0 [facility] Comment on above: Order Comment: No: D o not add to previous draw Performed By: #### 4 1000, 19040, 01149, 29321 #### [facility] [address] [facility] [place] [address], [facility] Monocytes (Bld) [#/Vol] 0.6 10*3/uL Normal 0.1-1.0 [facility] Comment on above: Order Comment: No: D o not add to previous draw Performed By: #### 4 999, 22536, 21558, 75141 #### [facility] [address] [place] [address], [place] MONOS 7.7 % Normal 5.0-12.0 [facility] Comment on above: Order Comment: No: D o not add to previous draw Performed By: #### 4 1000, 77458, 48680, 73728 #### [facility] [address] [place] [address], [place] Neutrophils/100 WBC (Bld) 70.3 % Normal 40.0-72.0 [facility] Comment on above: Order Comment: No: D o not add to previous draw Performed By: #### 4 1000, 89571, 06987, 56430 #### [facility] [address] [place] [address], [facility] Nucleated RBC/100 WBC (Bld) [Ratio] 0 % Normal 0-0 [facility] Comment on above: Order Comment: No: D o not add to previous draw Performed By: #### 4 1000, 00167, 35303, 12284 #### [facility] [address] [place] [address], [facility] PLAT CNT 157 10*3/uL Normal 150-400 [facility] Comment on above: Order Comment: No: D o not add to previous draw Performed By: #### 4 1000, 55572, 60621, 05462 #### [facility] [address] [facility] [place] [address], [facility] RBC (Bld) [#/Vol] 4.74 10*6/uL Normal 4.20-5.70 [facility] Comment on above: Order Comment: No: D o not add to previous draw Performed By: #### 4 1000, 86778, 90064, 98769 #### [facility] [address] [place] [address], [facility] WBC (Bld) [#/Vol] 8.16 10*3/uL Normal 4.00-10.60 [facility] Comment on above: Order Comment: No: D o not add to previous draw Performed By: #### 4 1000, 16677, 74892, 74424 #### [facility] [address] [facility] [place] [address], [facility] Cardiovascular Lab Reporton 06-14-2019 Cardiovascular Lab Report [facility] Patient Name: [facility] Mackenzie Doherty MR #: [id number] Department of Physician: Reema Olivarez MD Division of Service Date: 06/14/2019 Cardiology Birthdate: 1955 Adult Cardiovascular Room #: [id number] [facility] [address] 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 INDICATIONS: This is a 63-year-old man with [...] The patient was also notified that a aviation consultant will be assisting during the course of [...] internal jugular vein. Then, we inserted a 6-Namibian x 11 cm glide sheath and advanced [...] elevated wedge pressure at 17 mmHg and [id number] elevation in his right-sided pressures. His RA [...] about these findings. Electronically Signed by: Reema Olivarez MD 06/15/2019 11:57 A Reema Olivarez MD Date Dict: 06/14/2019/12:36 P/Reema Olivarez MD Date Trans: 06/14/2019 01:05 P/mmo [id number] cc: Josh Pro D.O. [address] [place] [id number] Normal [facility] MAGNESIUM BLOODon 06-14-2019 Magnesium [Mass/Vol] 2.0 mg/dL Normal 1.9-2.7 [facility] Comment on above: Order Comment: No: D o not add to previous draw Performed By: #### 4 999, 50074, 80021, 82744 #### [facility] [address] [facility] [place] [address], [place] POC GLUCOSE LABon 06-14-2019 Glucose [Mass/Vol] 305 mg/dL High 70-100 [facility] Comment on above: Performed By: #### 4 1000, 99361, 23767, 10919 #### [facility] [address] [place] [address], [place] Glucose [Mass/Vol] 299 mg/dL High 70-100 [facility] Comment on above: Performed By: #### 4 1000, 71893, 15173, 16818 #### [facility] [address] [place] [address], [place] Glucose [Mass/Vol] 177 mg/dL High 70-100 [facility] Comment on above: Performed By: #### 4 999, 76734, 96741, 80476 #### [facility] [address] [place] [address], [place] Glucose [Mass/Vol] 194 mg/dL High 70-100 [facility] Comment on above: Performed By: #### 4 1000, 59893, 15693, 27514 #### [facility] [address] [place] [address], [place] Glucose [Mass/Vol] 163 mg/dL High 70-100 [facility] Comment on above: Performed By: #### 4 999, 60054, 57504, 98222 #### [facility] [address] [place] [address], [place] BASIC METABOLIC PANELon 12-0 Calcium [Mass/Vol] 9.3 mg/dL Normal 8.6-10.3 [facility] Comment on above: Order Comment: No: D o not add to previous draw Performed By: #### 4 999, 55079, 49314, 47826 #### [facility] [address] [place] [address], [place] Chloride [Moles/Vol] 98 mmol/L Normal 98-107 [facility] Comment on above: Order Comment: No: D o not add to previous draw Performed By: #### 4 1000, 23296, 94093, 55866 #### [facility] [address] [place] [address], [place] CO2 [Moles/Vol] 39 mmol/L High 21-31 [facility] Comment on above: Order Comment: No: D o not add to previous draw Performed By: #### 4 1000, 84909, 46969, 14914 #### [facility] [address] [place] [address], [place] Creatinine [Mass/Vol] 1.35 mg/dL High 0.70-1.30 [facility] Comment on above: Order Comment: No: D o not add to previous draw Performed By: #### 4 1000, 27288, 80748, 58341 #### [facility] [address] [place] [address], [place] GFR/1.73 sq M predicted among blacks MDRD (S/P/Bld) [Vol rate/Area] mL/min/{1.73_m2} Normal >60 [facility] Comment on above: Order Comment: No: D o not add to previous draw Performed By: #### 4 999, 42917, 93307, 71778 #### [facility] [address] [place] [address], [place] GFR/1.73 sq M predicted among non-blacks MDRD (S/P/Bld) [Vol rate/Area] 53 ml/min/1.73sq m Abnormal >60 [facility] Comment on above: Order Comment: No: D o not add to previous draw Performed By: #### 4 999, 53289, 47183, 52695 #### [facility] [address] [place] [address], [place] Glucose [Mass/Vol] 90 mg/dL Normal 70-100 [facility] Comment on above: Order Comment: No: D o not add to previous draw Performed By: #### 4 1000, 65984, 72891, 54065 #### [facility] [address] [place] [address], [place] Potassium [Moles/Vol] 3.8 mmol/L Normal 3.5-5.1 [facility] Comment on above: Order Comment: No: D o not add to previous draw Performed By: #### 4 1000, 66029, 62387, 76696 #### [facility] [address] [facility] [place] [address], [facility] Sodium [Moles/Vol] 143 mmol/L Normal 136-145 [facility] Comment on above: Order Comment: No: D o not add to previous draw Performed By: #### 4 1000, 95914, 91152, 98249 #### [facility] [address] [facility]. [address] Urea nitrogen [Mass/Vol] 28 mg/dL High 7-25 [facility] Comment on above: Order Comment: No: D o not add to previous draw Performed By: #### 4 1000, 30829, 91740, 41517 #### [facility] [address] [facility]. [address] CBC W/DIFFon 06-13-2019 ABS BASOPHILS 0.0 10*3/uL Normal 0.0-0.2 [facility] [place] [facility] Comment on above: Order Comment: No: D o not add to previous draw Performed By: #### 4 999, 98487, 19882, 74577 #### [facility] [address] [facility]. [address] ABS IMM GRANS 0.0 10*3/uL Normal 0.0-0.2 [facility] [place] [facility] Comment on above: Order Comment: No: D o not add to previous draw Performed By: #### 4 1000, 53149, 05258, 57741 #### [facility] [address] [facility] [place] [address], [facility] ABS NEUTROPHILS 5.6 10*3/uL Normal 1.6-7.6 [facility] Comment on above: Order Comment: No: D o not add to previous draw Performed By: #### 4 1000, 45965, 93041, 28587 #### [facility] [address] [facility] [place] [address], [facility] Basophils/100 WBC (Bld) 0.2 % Normal 0.0-1.0 [facility] [place] Comment on above: Order Comment: No: D o not add to previous draw Performed By: #### 4 1000, 89227, 80915, 52344 #### [facility] [address] [place] [address], [facility] Eosinophils (Bld) [#/Vol] 0.2 10*3/uL Normal 0.0-0.5 [facility] [place] Comment on above: Order Comment: No: D o not add to previous draw Performed By: #### 4 1000, 11031, 11905, 05736 #### [facility] [address] [place] [address], [facility] Eosinophils/100 WBC (Bld) 2.4 % Normal 0.0-6.0 [facility] [place] Comment on above: Order Comment: No: D o not add to previous draw Performed By: #### 4 1000, 11223, 28871, 59399 #### [facility] [address] [place] [address], [facility] Erythrocyte distribution width (RBC) [Ratio] 13.5 % Normal 11.5-15.0 [facility] [place] Comment on above: Order Comment: No: D o not add to previous draw Performed By: #### 4 1000, 43916, 45562, 58669 #### [facility] [address] [place] [address], [facility] Hematocrit (Bld) [Volume fraction] 44.3 % Normal 39.0-50.0 [facility] [place] Comment on above: Order Comment: No: D o not add to previous draw Performed By: #### 4 1000, 11279, 84441, 62071 #### [facility] [address] [place] [address], [facility] Hemoglobin (Bld) [Mass/Vol] 14.0 g/dL Normal 13.0-17.0 [facility] [place] Comment on above: Order Comment: No: D o not add to previous draw Performed By: #### 4 1000, 51999, 19720, 54595 #### [facility] [address] [facility] [place] [address], [facility] IMMATURE GRANS 0.4 % Normal 0.0-1.0 [facility] Comment on above: Order Comment: No: D o not add to previous draw Performed By: #### 4 1000, 14876, 16043, 89927 #### [facility] [address] [facility] [place] [address], [facility] Lymphocytes (Bld) [#/Vol] 1.6 10*3/uL Normal 1.2-4.0 [facility] [place] Comment on above: Order Comment: No: D o not add to previous draw Performed By: #### 4 1000, 30207, 69145, 70269 #### [facility] [address] [place] [address], [facility] Lymphocytes/100 WBC (Bld) 19.7 % Low 20.0-45.0 [facility] [place] Comment on above: Order Comment: No: D o not add to previous draw Performed By: #### 4 1000, 19577, 98520, 52482 #### [facility] [address] [facility] [place] [address], [facility] MCH (RBC) [Entitic mass] 29.3 pg Normal 27.0-33.0 [facility] [place] Comment on above: Order Comment: No: D o not add to previous draw Performed By: #### 4 1000, 35168, 38627, 59085 #### [facility] [address] [facility]. [place] [id number], [facility] MCHC (RBC) [Mass/Vol] 31.6 g/dL Low 32.0-35.0 [facility] [place] Comment on above: Order Comment: No: D o not add to previous draw Performed By: #### 4 1000, 21109, 47347, 06045 #### [facility] [address] [facility] [place] [address], [facility] MCV (RBC) [Entitic vol] 92.7 fL Normal 82.0-98.0 [facility] Comment on above: Order Comment: No: D o not add to previous draw Performed By: #### 4 1000, 53307, 41348, 74143 #### [facility] [address] [place] [address], [facility] Monocytes (Bld) [#/Vol] 0.6 10*3/uL Normal 0.1-1.0 [facility] [place] Comment on above: Order Comment: No: D o not add to previous draw Performed By: #### 4 1000, 70707, 37400, 42162 #### [facility] [address] [facility]. [address] MONOS 7.8 % Normal 5.0-12.0 [facility] [place] Comment on above: Order Comment: No: D o not add to previous draw Performed By: #### 4 1000, 11563, 41076, 29294 #### [facility] [address] [place] [address], [facility] Neutrophils/100 WBC (Bld) 69.5 % Normal 40.0-72.0 [facility] Comment on above: Order Comment: No: D o not add to previous draw Performed By: #### 4 1000, 08231, 72976, 33317 #### [facility] [address] [facility] [place] [address], [facility] Nucleated RBC/100 WBC (Bld) [Ratio] 0 % Normal 0-0 [facility] Comment on above: Order Comment: No: D o not add to previous draw Performed By: #### 4 1000, 55198, 29861, 38350 #### [facility] [address] [facility] [place] [address], [facility] PLAT CNT 179 10*3/uL Normal 150-400 [facility] Comment on above: Order Comment: No: D o not add to previous draw Performed By: #### 4 1000, 27424, 26060, 77308 #### [facility] [address] [place] [address], [facility] RBC (Bld) [#/Vol] 4.78 10*6/uL Normal 4.20-5.70 [facility] Comment on above: Order Comment: No: D o not add to previous draw Performed By: #### 4 1000, 88314, 54854, 86574 #### [facility] [address] [place] [address], [facility] WBC (Bld) [#/Vol] 8.04 10*3/uL Normal 4.00-10.60 [facility] Comment on above: Order Comment: No: D o not add to previous draw Performed By: #### 4 1000, 11461, 26110, 13168 #### [facility] [address] [place] [address], [facility] HEMOGLOBIN A1Con 06-13-2019 HbA1c (Bld) [Mass fraction] 8.1 % High 4.0-6.0 [facility] Comment on above: Order Comment: No: D o not add to previous draw Performed By: #### 4 1000, 05417, 80205, 22160 #### [facility] [address] [facility] [place] [address], [facility] HbA1c (Bld) [Mass fraction] 186 mg/dL High 70-126 [facility] Comment on above: Order Comment: No: D o not add to previous draw Performed By: #### 4 1000, 65836, 19951, 30798 #### [facility] [address] [place] [address], [facility] MAGNESIUM BLOODon 06-13-2019 Magnesium [Mass/Vol] 2.2 mg/dL Normal 1.9-2.7 [facility] [place] Comment on above: Order Comment: No: D o not add to previous draw Performed By: #### 4 1000, 44011, 87836, 03263 #### [facility] [address] [place] [address], [facility] PHOSPHORUS BLOODon 9 Phosphate [Mass/Vol] 3.7 mg/dL Normal 2.5-5.0 [facility] Comment on above: Order Comment: No: D o not add to previous draw Performed By: #### 4 1000, 63336, 88227, 09720 #### [facility] [address] [place] [address], [place] POC GLUCOSE LABon 06-13-2019 Glucose [Mass/Vol] 156 mg/dL High 70-100 [facility] Comment on above: Performed By: #### 4 1000, 29041, 64753, 30531 #### [facility] [address] [place] [address], [place] Glucose [Mass/Vol] 90 mg/dL Normal 70-100 [facility] Comment on above: Performed By: #### 4 1000, 22523, 02707, 48284 #### [facility] [address] [place] [address], [place] Glucose [Mass/Vol] 220 mg/dL High 70-100 [facility] Comment on above: Performed By: #### 4 1000, 49524, 70367, 12463 #### [facility] [address] [place] [address], [facility] BASIC METABOLIC PANELon Calcium [Mass/Vol] 8.7 mg/dL Normal 8.6-10.3 [facility] Comment on above: Order Comment: If no t done in ED No: Do not add to previous draw Performed By: #### 8 5123 #### [facility] [address] [place] [address], [place] Chloride [Moles/Vol] 95 mmol/L Low 98-107 [facility] Comment on above: Order Comment: If no t done in ED No: Do not add to previous draw Performed By: #### 8 5123 #### [facility] [address] [place] [address], [place] CO2 [Moles/Vol] 36 mmol/L High 21-31 [facility] [place] [facility] Comment on above: Order Comment: If no t done in ED No: Do not add to previous draw Performed By: #### 8 5123 #### [facility] [address] [place] [address], [place] Creatinine [Mass/Vol] 1.28 mg/dL Normal 0.70-1.30 [facility] Comment on above: Order Comment: If no t done in ED No: Do not add to previous draw Performed By: #### 8 5123 #### [facility] [address] [place] [address], [place] GFR/1.73 sq M predicted among blacks MDRD (S/P/Bld) [Vol rate/Area] mL/min/{1.73_m2} Normal >60 [facility] Comment on above: Order Comment: If no t done in ED No: Do not add to previous draw Performed By: #### 8 5123 #### [facility] [address] [place] [address], [place] GFR/1.73 sq M predicted among non-blacks MDRD (S/P/Bld) [Vol rate/Area] 57 ml/min/1.73sq m Abnormal >60 [facility] Comment on above: Order Comment: If no t done in ED No: Do not add to previous draw Performed By: #### 8 5123 #### [facility] [address] [place] [address], [place] Glucose [Mass/Vol] 83 mg/dL Normal 70-100 [facility] Comment on above: Order Comment: If no t done in ED No: Do not add to previous draw Performed By: #### 8 5123 #### [facility] [address] [place] [address], [place] Potassium [Moles/Vol] 3.7 mmol/L Normal 3.5-5.1 [facility] Comment on above: Order Comment: If no t done in ED No: Do not add to previous draw Performed By: #### 8 5123 #### [facility] [address] [place] [address], [place] Sodium [Moles/Vol] 140 mmol/L Normal 136-145 [facility] Comment on above: Order Comment: If no t done in ED No: Do not add to previous draw Performed By: #### 8 5123 #### [facility] [address] [place] [address], [place] Urea nitrogen [Mass/Vol] 30 mg/dL High 7-25 [facility] Comment on above: Order Comment: If no t done in ED No: Do not add to previous draw Performed By: #### 8 5123 #### [facility] [address] [place] [address], [facility] CBC COMPLETE BLOOD COUNTon 1 08-13-2018 Erythrocyte distribution width (RBC) [Ratio] 13.4 % Normal 11.5-15.0 [facility] Comment on above: Order Comment: If no t done in ED No: Do not add to previous draw Performed By: #### 8 5123 #### [facility] [address] [place] [address], [place] Hematocrit (Bld) [Volume fraction] 42.2 % Normal 39.0-50.0 [facility] Comment on above: Order Comment: If no t done in ED No: Do not add to previous draw Performed By: #### 8 5123 #### [facility] [address] [place] [address], [place] Hemoglobin (Bld) [Mass/Vol] 12.9 g/dL Low 13.0-17.0 [facility] Comment on above: Order Comment: If no t done in ED No: Do not add to previous draw Performed By: #### 8 5123 #### [facility] [address] MCH (RBC) [Entitic mass] 28.8 pg Normal 27.0-33.0 [facility] Comment on above: Order Comment: If no t done in ED No: Do not add to previous draw Performed By: #### 8 5123 #### [facility] [address] [place] [address], [facility] MCHC (RBC) [Mass/Vol] 30.6 g/dL Low 32.0-35.0 [facility] Comment on above: Order Comment: If no t done in ED No: Do not add to previous draw Performed By: #### 8 5123 #### [facility] [address] [place] [address], [facility] MCV (RBC) [Entitic vol] 94.2 fL Normal 82.0-98.0 [facility] Comment on above: Order Comment: If no t done in ED No: Do not add to previous draw Performed By: #### 8 5123 #### [facility] [address] [facility] Nucleated RBC/100 WBC (Bld) [Ratio] 0 % Normal 0-0 [facility] Comment on above: Order Comment: If no t done in ED No: Do not add to previous draw Performed By: #### 8 5123 #### [facility] [address] [place] [address], [facility] PLAT CNT 159 10*3/uL Normal 150-400 [facility] Comment on above: Order Comment: If no t done in ED No: Do not add to previous draw Performed By: #### 8 5123 #### [facility] [address] [facility] [place] [address], [facility] RBC (Bld) [#/Vol] 4.48 10*6/uL Normal 4.20-5.70 [facility] Comment on above: Order Comment: If no t done in ED No: Do not add to previous draw Performed By: #### 8 5123 #### [facility] [address] [place] [address], [place] WBC (Bld) [#/Vol] 8.80 10*3/uL Normal 4.00-10.60 [facility] Comment on above: Order Comment: If no t done in ED No: Do not add to previous draw Performed By: #### 8 5123 #### [facility] [address] [place] [address], [facility] MAGNESIUM BLOODon 06-12-2019 Magnesium [Mass/Vol] 1.8 mg/dL Low 1.9-2.7 [facility] Comment on above: Order Comment: If no t done in ED No: Do not add to previous draw Performed By: #### 8 5123 #### [facility] [address] [place] [address], [place] PHOSPHORUS BLOODon 9 Phosphate [Mass/Vol] 3.9 mg/dL Normal 2.5-5.0 [facility] Comment on above: Order Comment: If no t done in ED No: Do not add to previous draw Performed By: #### 8 5123 #### [facility] [address] [place] [address], [facility] POC GLUCOSE LABon 06-12-2019 Glucose [Mass/Vol] 323 mg/dL High 70-100 [facility] Comment on above: Performed By: #### 8 5123 #### [facility] [address] [place] [address], [place] Glucose [Mass/Vol] 284 mg/dL High 70-100 [facility] Comment on above: Performed By: #### 8 5123 #### [facility] [address] [place] [address], [place] Glucose [Mass/Vol] 243 mg/dL High 70-100 [facility] Comment on above: Performed By: #### 8 5123 #### [facility] [address] [place] [address], [facility] Glucose [Mass/Vol] 82 mg/dL Normal 70-100 [facility] Comment on above: Performed By: #### 8 5123 #### [facility] [address] ARTERIAL BLOOD GAS WITH ICAo n 06-11-2019 BASE EXCESS 13 mmol/L High -2-3 [facility] Comment on above: Order Comment: RESUL TS CHECKED AND CALLED. ACCURATELY READ BACK BY ARNULFO MOSER RN Performed By: #### 8 4511 #### [facility] [address] [facility]. [address] DELIVERY SYSTEMS NASAL CANNULA Normal [facility] Comment on above: Order Comment: RESUL TS CHECKED AND CALLED. ACCURATELY READ BACK BY ARNULFO MOSER RN Performed By: #### 8 4511 #### [facility] [address] [facility] [place] [address], [facility] HCO3 (Bld) [Moles/Vol] 41 mmol/L Critically high 21-28 [facility] Comment on above: Order Comment: RESUL TS CHECKED AND CALLED. ACCURATELY READ BACK BY ARNULFO MOSER RN Performed By: #### 8 4511 #### [facility] [address] [facility]. [address] IONIZED CALCIUM 1.10 mmol/L Low 1.13-1.32 [facility] Comment on above: Order Comment: RESUL TS CHECKED AND CALLED. ACCURATELY READ BACK BY ARNULFO MOSER RN Performed By: #### 8 4511 #### [facility] [address] [facility] [place] [address], [facility] LPM 3.0 LPM Normal [facility] Comment on above: Order Comment: RESUL TS CHECKED AND CALLED. ACCURATELY READ BACK BY ARNULFO MOSER RN Performed By: #### 8 4511 #### [facility] [address] [facility]. [address] Oxygen (Bld) [Partial pressure] 63 mm[Hg] Low 83-108 [facility] Comment on above: Order Comment: RESUL TS CHECKED AND CALLED. ACCURATELY READ BACK BY ARNULFO MOSER RN Performed By: #### 8 4511 #### [facility] [address] [facility] [place] [address], [facility] Oxygen saturation in Blood 91.9 % Low 94.0-97.0 [facility] Comment on above: Order Comment: RESUL TS CHECKED AND CALLED. ACCURATELY READ BACK BY ARNULFO MOSER RN Performed By: #### 8 4511 #### [facility] [address] [place] [address], [facility] PCO2 70 mmHg Critically high 35-45 [facility] Comment on above: Order Comment: RESUL TS CHECKED AND CALLED. ACCURATELY READ BACK BY ARNULFO MOSER RN Performed By: #### 8 4511 #### [facility] [address] pH (Bld) 7.38 [pH] Normal 7.35-7.45 [facility] [place] Comment on above: Order Comment: RESUL TS CHECKED AND CALLED. ACCURATELY READ BACK BY ARNULFO MOSER RN Performed By: #### 8 4511 #### [facility] [address] BASIC METABOLIC PANELon 12-0 Calcium [Mass/Vol] 8.6 mg/dL Normal 8.6-10.3 [facility] Comment on above: Order Comment: No: D o not add to previous draw Performed By: #### 4 1000, 33184, 90548, 37788 #### [facility] [address] [facility] [place] [address], [facility] Chloride [Moles/Vol] 97 mmol/L Low 98-107 [facility] Comment on above: Order Comment: No: D o not add to previous draw Performed By: #### 4 1000, 70769, 57960, 62256 #### [facility] [address] [place] [address], [place] CO2 [Moles/Vol] 40 mmol/L High 21-31 [facility] [place] [facility] Comment on above: Order Comment: No: D o not add to previous draw Performed By: #### 4 1000, 15335, 77346, 39838 #### [facility] [address] [place] [address], [place] Creatinine [Mass/Vol] 1.62 mg/dL High 0.70-1.30 [facility] Comment on above: Order Comment: No: D o not add to previous draw Performed By: #### 4 1000, 68009, 88721, 99866 #### [facility] [address] [place] [address], [place] GFR/1.73 sq M predicted among blacks MDRD (S/P/Bld) [Vol rate/Area] 52 ml/min/1.73sq m Abnormal >60 [facility] Comment on above: Order Comment: No: D o not add to previous draw Performed By: #### 4 1000, 95294, 55927, 69997 #### [facility] [address] [place] [address], [place] GFR/1.73 sq M predicted among non-blacks MDRD (S/P/Bld) [Vol rate/Area] 43 ml/min/1.73sq m Abnormal >60 [facility] Comment on above: Order Comment: No: D o not add to previous draw Performed By: #### 4 1000, 44126, 45507, 23000 #### [facility] [address] [place] [address], [place] Glucose [Mass/Vol] 82 mg/dL Normal 70-100 [facility] Comment on above: Order Comment: No: D o not add to previous draw Performed By: #### 4 1000, 25214, 35508, 21925 #### [facility] [address] [place] [address], [facility] Potassium [Moles/Vol] 4.0 mmol/L Normal 3.5-5.1 [facility] Comment on above: Order Comment: No: D o not add to previous draw Performed By: #### 4 1000, 58215, 25335, 18153 #### [facility] [address] [place] [address], [facility] Sodium [Moles/Vol] 141 mmol/L Normal 136-145 [facility] Comment on above: Order Comment: No: D o not add to previous draw Performed By: #### 4 1000, 81256, 64884, 02985 #### [facility] [address] [place] [address], [facility] Urea nitrogen [Mass/Vol] 33 mg/dL High 7-25 [facility] Comment on above: Order Comment: No: D o not add to previous draw Performed By: #### 4 1000, 11906, 25909, 01132 #### [facility] [address] [place] [address], [facility] BNP (B-TYPE NATRIURETIC PEPT TANG)on 06-11-2019 Natriuretic peptide B (Bld) [Mass/Vol] 21 pg/mL Normal 0-100 [facility] Comment on above: Order Comment: If no t done in ED No: Do not add to previous draw Result Comment: Give n the appropriate clinical setting a BNP result of >100 pg/mL indicates congestive heart failure. Performed By: #### 8 5123 #### [facility] [address] [place] [id number], [facility] CBC W/DIFFon 06-11-2019 ABS BASOPHILS 0.0 10*3/uL Normal 0.0-0.2 The [facility] [place] [facility] Comment on above: Order Comment: No: D o not add to previous draw Performed By: #### 5 0103 #### [facility] [address] [place] [id number], [facility] ABS IMM GRANS 0.0 10*3/uL Normal 0.0-0.2 [facility] [place] [facility] Comment on above: Order Comment: No: D o not add to previous draw Performed By: #### 5 0103 #### [facility] [address] [place] [address], [facility] ABS NEUTROPHILS 7.1 10*3/uL Normal 1.6-7.6 [facility] Comment on above: Order Comment: No: D o not add to previous draw Performed By: #### 5 0103 #### [facility] [address] [place] [id number], [facility] Basophils/100 WBC (Bld) 0.3 % Normal 0.0-1.0 [facility] Comment on above: Order Comment: No: D o not add to previous draw Performed By: #### 5 0103 #### [facility] [address] [place] [address], [facility] Eosinophils (Bld) [#/Vol] 0.2 10*3/uL Normal 0.0-0.5 [facility] Comment on above: Order Comment: No: D o not add to previous draw Performed By: #### 5 0103 #### [facility] [address] [place] [id number], [facility] Eosinophils/100 WBC (Bld) 1.8 % Normal 0.0-6.0 [facility] Comment on above: Order Comment: No: D o not add to previous draw Performed By: #### 5 0103 #### [facility] [address] [place] [address], [facility] Erythrocyte distribution width (RBC) [Ratio] 13.7 % Normal 11.5-15.0 [facility] Comment on above: Order Comment: No: D o not add to previous draw Performed By: #### 5 0103 #### [facility] [address] [place] [address], [facility] Hematocrit (Bld) [Volume fraction] 43.1 % Normal 39.0-50.0 [facility] Comment on above: Order Comment: No: D o not add to previous draw Performed By: #### 5 0103 #### [facility] [address] [place] [id number], [facility] Hemoglobin (Bld) [Mass/Vol] 12.9 g/dL Low 13.0-17.0 [facility] Comment on above: Order Comment: No: D o not add to previous draw Performed By: #### 5 0103 #### [facility] [address] [place] [address], [facility] IMMATURE GRANS 0.3 % Normal 0.0-1.0 The [facility] [place] [facility] Comment on above: Order Comment: No: D o not add to previous draw Performed By: #### 5 0103 #### [facility] [address] [place] [address], [facility] Lymphocytes (Bld) [#/Vol] 1.7 10*3/uL Normal 1.2-4.0 [facility] Comment on above: Order Comment: No: D o not add to previous draw Performed By: #### 5 0103 #### [facility] [address] [place] [id number], [facility] Lymphocytes/100 WBC (Bld) 17.6 % Low 20.0-45.0 [facility] [place] Comment on above: Order Comment: No: D o not add to previous draw Performed By: #### 5 [id number] #### [facility] [address] [place] [address], [place] MCH (RBC) [Entitic mass] 28.6 pg Normal 27.0-33.0 [facility] [place] Comment on above: Order Comment: No: D o not add to previous draw Performed By: #### 5 [id number] #### [facility] [address] [place] [id number], [facility] MCHC (RBC) [Mass/Vol] 29.9 g/dL Low 32.0-35.0 [facility] [place] Comment on above: Order Comment: No: D o not add to previous draw Performed By: #### 5 0103 #### [facility] [address] [place] [address], [facility] MCV (RBC) [Entitic vol] 95.6 fL Normal 82.0-98.0 [facility] [place] Comment on above: Order Comment: No: D o not add to previous draw Performed By: #### 5 0103 #### [facility] [address] [place] [id number], [facility] Monocytes (Bld) [#/Vol] 0.7 10*3/uL Normal 0.1-1.0 [facility] [place] Comment on above: Order Comment: No: D o not add to previous draw Performed By: #### 5 0103 #### [facility] [address] [facility] [place] [address], [facility] MONOS 6.9 % Normal 5.0-12.0 [facility] [place] Comment on above: Order Comment: No: D o not add to previous draw Performed By: #### 5 0103 #### [facility] [address] [facility] [place] [address], [facility] Neutrophils/100 WBC (Bld) 73.1 % High 40.0-72.0 [facility] [place] Comment on above: Order Comment: No: D o not add to previous draw Performed By: #### 5 0103 #### [facility] [address] [facility] [place] [address], [facility] Nucleated RBC/100 WBC (Bld) [Ratio] 0 % Normal 0-0 [facility] [place] Comment on above: Order Comment: No: D o not add to previous draw Performed By: #### 5 0103 #### [facility] [address] [place] [id number], [facility] PLAT CNT 157 10*3/uL Normal 150-400 The [facility] Comment on above: Order Comment: No: D o not add to previous draw Performed By: #### 5 0103 #### [facility] [address] [place] [address], [facility] RBC (Bld) [#/Vol] 4.51 10*6/uL Normal 4.20-5.70 [facility] Comment on above: Order Comment: No: D o not add to previous draw Performed By: #### 5 0103 #### [facility] [address] [place] [address], [facility] WBC (Bld) [#/Vol] 9.68 10*3/uL Normal 4.00-10.60 [facility] Comment on above: Order Comment: No: D o not add to previous draw Performed By: #### 5 0103 #### [facility] [address] [facility]. [address] History and Physicalon 06-11 History and Physical MR#: [id number] [place] Pt. Name: Mackenzie Dumont Admitted: 06/11/2019 Date of : 1955 Attending Physician: Cynthia Miguel M.D. Room #: [id number] Discharge Date: HISTORY AND PHYSICAL CHIEF COMPLAINT: Shortness of breath. HISTORY OF PRESENT ILLNESS: Mr. Peterson is a 63-year-old male with a past medical history of diastolic congestive heart failure, obstructive sleep apnea, obesity hypoventilation syndrome, history of DVT, hypertension, CAD, and diabetes mellitus type 2, who was transferred from [facility] for progressively worsening shortness of breath for [...] diarrhea, weakness, or numbness. On presentation to [facility], the patient was in respiratory distress. The [...] Diastolic CHF exacerbation: ABG on presentation to [facility] revealed a pH of 7.27, pCO2 78.5, pO2 195, bicarbonate 35.4 on a non-rebreather mask with a FiO2 of 100%. Repeat ABG after BiPAP placement revealed a pH of 7.351, pCO2 65.4, pO2 61.1, bicarbonate 35.4 on BiPAP, FiO2 50%, /. Chest x-ray revealed upon bilateral pulmonary venous [...] His baseline is 1.45 to 1.55 per [facility] notes. The patient will be on Lasix [...] A Cynthia Miguel M.D. Date Dict: 06/11/2019/11:31 Devon/Cynthia Miguel M.D. Date Trans: 06/11/2019 12:14 P/mmo [id number] Normal [facility] [place] MAGNESIUM BLOODon 06-11-2019 Magnesium [Mass/Vol] 1.9 mg/dL Normal 1.9-2.7 [facility] [place] Comment on above: Order Comment: No: D o not add to previous draw Performed By: #### 4 1000, 16083, 28306, 58139 #### [facility] [address] [facility] [place] [address], [facility] PHOSPHORUS BLOODon 9 Phosphate [Mass/Vol] 3.6 mg/dL Normal 2.5-5.0 [facility] [place] Comment on above: Order Comment: No: D o not add to previous draw Performed By: #### 4 1000, 46546, 80806, 50337 #### [facility] [address] [facility] [place] [address], [facility] POC GLUCOSE LABon 06-11-2019 Glucose [Mass/Vol] 168 mg/dL High 70-100 The [facility] Comment on above: Performed By: #### 8 5123 #### [facility] [address] [facility] [place] [address], [facility] Glucose [Mass/Vol] 235 mg/dL High 70-100 [facility] Comment on above: Performed By: #### 8 5499 #### [facility] [address] [facility] [place] [address], [facility] PORTABLE CHEST 1 VIEWon PORTABLE CHEST 1 VIEW [facility] Department of Radiology [address] [place] [id number] Patient Name: MACKENZIE DUMONT : 1955 Sex: M Age: Race: White Pt. Location: [id number] Patient Status: I Ordered Date: 06/11/2019 10:25:00 [...] Electronically signed by:Carlos Eduardo Loera. Transcribed by: [email or web address], User Resident: Electronically Signed by: CARLOS EDUARDO LOERA @ 06/11/2019 03:03 PM Normal [facility] [place] Comment on above: Order Comment: R/O C HF TROPONIN-Ion 06-11-2019 Troponin I.cardiac [Mass/Vol] 0.12 ng/mL Critically high 0.00-0.04 [facility] [place] Comment on above: Order Comment: No: D o not add to previous draw Result Comment: REFE RENCE RANGES: 0.00 - 0.04 ng/ml NORMAL 0.05 - 0.50 ng/ml INDETERMINATE > 0.50 ng/ml CONSISTENT WITH AN M.I. Performed By: #### 3 5200 #### [facility] [address] Troponin I.cardiac [Mass/Vol] 0.15 ng/mL Critically high 0.00-0.04 [facility] [place] Comment on above: Result Comment: M-TR OPONIN INITIAL CRITICAL HIGH; RESPUN AND RETESTED M-CRITICAL RESULT(S) REVIEWED, CALLED TO AND READ BACK BY ANDRE FELIX RN AT 1504 REFERENCE RANGES: 0.00 - 0.04 ng/ml NORMAL 0.05 - 0.50 ng/ml INDETERMINATE > 0.50 ng/ml CONSISTENT WITH AN M.I. Performed By: #### 4 1000, 82844, 62278, 18816 #### [facility] [address] Vital Signs Date Time Vital Sign Value Performing Clinician Faci lity 11-18-2024 09:46-0400 Body height 175.3 cm Jeffry Garces DPM Work Phone: [facility] 11-18-2024 09:46-0400 Body mass index (BMI) [Ratio] 46.67 kg/m2 Jeffry Brown DPM Work Phone: [facility] 11-18-2024 09:46-0400 Body weight 143.34 kg Jeffry Garces DPM Work Phone: [facility] 11-18-2024 09:46-0400 Respiratory rate 18 /min Jeffry Garces DPM Work Phone: [facility] 09-02-2024 10:08-0500 Body height 175.3 cm Jeffry Garces DPM Work Phone: [facility] 09-02-2024 10:08-0500 Body mass index (BMI) [Ratio] 46.67 kg/m2 Jeffry Garces DPM Work Phone: [facility] 02-27-2025 10:08-0500 Body weight 143.34 kg Jeffry Brown DPM Work Phone: [facility] 09-02-2024 10:08-0500 Respiratory rate 18 /min Jeffry Brown DPM Work Phone: [facility] 05-06-2024 12:00-0400 Body height 175.3 cm Jeffry Brown DPM Work Phone: [facility] 05-06-2024 12:00-0400 Body mass index (BMI) [Ratio] 46.67 kg/m2 Jeffry Brown DPM Work Phone: [facility] 05-06-2024 12:00-0400 Body weight 143.34 kg Jeffry Brown DPM Work Phone: [facility] 05-06-2024 12:00-0400 Diastolic blood pressure 80 mm[Hg] Jeffry Brown DPM Work Phone: [facility] 05-06-2024 12:00-0400 Heart rate 85 /min Jeffry Brown DPM Work Phone: [facility] 05-06-2024 12:00-0400 Systolic blood pressure 126 mm[Hg] Jeffry Brown DPM Work Phone: [facility] 02-26-2024 11:06-0400 Body height 175.3 cm Jeffry Brown DPM Work Phone: [facility] 02-26-2024 11:06-0400 Body mass index (BMI) [Ratio] 46.67 kg/m2 Jeffry Brown DPM Work Phone: [facility] 02-26-2024 11:06-0400 Body weight 143.34 kg Jeffry Brown DPM Work Phone: [facility] 02-26-2024 11:06-0400 Diastolic blood pressure 80 mm[Hg] Jeffry Brown DPM Work Phone: [facility] 02-26-2024 11:06-0400 Heart rate 89 /min Jeffry Brown DPM Work Phone: [facility] 02-26-2024 11:06-0400 Systolic blood pressure 129 mm[Hg] Jeffry Garces DPM Work Phone: [facility] 06-04-2021 19:26-0500 Body temperature 96.69 [degF] Latoya Moyer DO Work Phone: [facility] 06-04-2021 19:20-0500 Diastolic blood pressure 66 mm[Hg] Latoya Eliseis DO Work Phone: [facility] 06-04-2021 19:20-0500 Systolic blood pressure 174 mm[Hg] Latoya Moyer DO Work Phone: [facility] 06-04-2021 19:18-0500 SaO2% (BldA) [Mass fraction] 96 % Latoya Moyer DO Work Phone: [facility] 06-04-2021 19:12-0500 Heart rate 71 /min Latoya Moyer DO Work Phone: [facility] 06-04-2021 19:12-0500 Respiratory rate 16 /min Latoya Ellis DO Work Phone: [facility] Encounters Encounter Date Encounter Type Care Provider Facility Start: 11-18-2024 End: 11-18-2024 Bamboo flowsheet Jeffry Garces DPM Work Phone: [facility] Start: 11-18-2024 End: 11-18-2024 Bamboo flowsheet Jeffry Garces DPM Work Phone: [facility] Start: 11-18-2024 End: 11-18-2024 Patient encounter procedure Jeffry Garces DPM Work Phone: [facility] Comment on above: Diabetes mellitus du e to underlying condition with diabetic polyneuropathy, with long-term current use of insulin ([facility]) (Primary Dx); Pain due to onychomycosis of toenails of both feet Start: 11-18-2024 End: 11-18-2024 ambulatory JEFFRY GARCES Not Available Start: 09-20-2024 End: 09-20-2024 Telephone encounter Kristin Islas Florentinjemal DO Work Phone: [facility] Comment on above: Antibiotic Start: 09-02-2024 [...] Not Available Start: 06-16-2024 End: 06-16-2024 ambulatory [facility] Start: 05-06-2024 End: 05-06-2024 Bamboo flowsheet Jeffry Garces DPM Work Phone: [facility] Start: 05-06-2024 End: 05-06-2024 Bamboo flowsheet Jeffry Garces DPM Work Phone: [facility] Start: 05-06-2024 End: 05-06-2024 Patient encounter procedure Jeffry Garces DPM Work [...] polyneuropathy, with long-term current use of insulin ([facility]) (Primary Dx); Onychomycosis; Toe pain, bilateral Start: 02-26-2024 End: 02-26-2024 ambulatory JEFFRY GARCES Not Available Start: 12-11-2023 End: 12-11-2023 ambulatory JEFFRY GARCES Not Available Start: 09-04-2023 End: 09-04-2023 ambulatory JEFFRY GARCES Not Available Start: 06-26-2023 End: 06-26-2023 ambulatory JEFFRY GARCES Not Available Start: 04-08-2022 End: 04-09-[address] JOSH PRO Facility:[facility] Start: 10-29-2021 End: 10-30-[address] JOSH PRO Facility:[facility] Start: 06-04-2021 End: 06-05-2021 Emergency department patient visit JOSH PRO [facility] Start: 06-04-2021 End: 06-04-2021 Emergency department patient visit Latoya Moyer DO Work Phone: [facility] ED Comment on above: Hypoglycemia (Primar y Dx) Start: 06-11-2019 End: 06-15-2019 Evaluation and management of inpatient [place] Facility:[facility] Procedures Date Procedure Procedure Detail Performing Clinician Start: 04-08-[address] JOSH PRO Comment on above: Performed By: #### P [facility] #### [facility] [address] [place] [address] Dr. Constantin Yepez Start: 06-04-2021 GLUCOSE, WHOLE BLOOD Ch janes Moyer DO Work Phone: Start: 06-04-2021 Urinalysis microscop ic only Sherine Pink PA-C Work Phone: Start: 06-04-2021 Urnls dip stick/tabl et rgnt auto w/o microscopy Sherine Pink PA-C Work Phone: Start: 06-04-2021 End: 06-04-2021 GLUCOSE, WHOLE BLOOD Latoya Jennings O Work Phone: Start: 06-04-2021 Lactate [Moles/volum e] in Serum or Plasma Sherine Pink PA-C Work Phone: Start: 06-04-2021 End: 06-04-2021 GLUCOSE, WHOLE BLOOD Latoya Jennings O Work Phone: Start: 06-04-2021 BLOOD GAS, ARTERIAL [...] \T\ PRESSURE, R HEART, PERC APPROACH REEMA OLIVAREZ Start: 06-13-2019 ASSISTANCE WITH RESPIRATORY VENTILATION, <24 HRS, CPAP SEA B VOSS Start: 06-12-2019 ASSISTANCE WITH RESPIRATORY VENTILATION, <24 HRS, CPAP SEA B VOSS Start: 06-11-2019 ASSISTANCE WITH RESPIRATORY VENTILATION, <24 HRS, CPAP ANAS RENNO Start: 06-11-2019 MONITORING OF ARTERI AL SATURATION, PERIPHERAL, PERC APPROACH ANAS RENNO Plan of Treatment Date Care Activity Detail Author Start: 12-30-2030 DTaP/Tdap/Td vaccine (2 - Tdap) DTaP/Tdap/Td vaccine (2 - Tdap) [facility] Start: 01-27-2025 End: 01-27-2025 Patient encounter procedure 01/27/2025 10:10 AM EDT Office Visit [facility] [address] [phone] Jeffry Garces DPM [address] [address] [facility] Start: 11-18-2024 End: 11-18-2024 Patient encounter procedure [facility] Comment on above: Diabetes mellitus du e to underlying condition with diabetic polyneuropathy, with long-term current use of insulin (CMS/HCC) (Primary Dx); Pain due to onychomycosis of toenails of both feet Start: 09-02-2024 End: 09-02-2024 Patient encounter procedure 09/02/2024 10:40 AM EST Office Visit [facility] [address] [phone] Jeffry Garces DPM [address] [address] Diabetes mellitus due to underlying condition with diabetic polyneuropathy, with long-term current use of insulin (CMS/HCC) (Primary Dx); Pain due to onychomycosis of toenails of both feet [facility] Comment on above: Diabetes mellitus du e to underlying condition with diabetic polyneuropathy, with long-term current use of insulin (CMS/HCC) (Primary Dx); Pain due to onychomycosis of toenails of both feet Start: 07-15-2024 End: 07-15-2024 Patient encounter procedure 07/15/2024 11:50 AM EST Office Visit [facility] [address] [phone] Jeffry Garces DPM [address] [address] [facility] Start: 05-06-2024 End: 05-06-2024 Patient encounter procedure [facility] Comment on above: Diabetes mellitus du e to underlying condition with diabetic polyneuropathy, with long-term current use of insulin (CMS/HCC) (Primary Dx); Pain due to onychomycosis of toenails of both feet Start: 02-26-2024 End: 02-26-2024 Patient encounter procedure 02/26/2024 11:40 AM EDT Office Visit [facility] 112 [facility] [address] [place] [address] Jeffry Garces DPM 3002 [facility] [address] [place] [address] Diabetes mellitus due to underlying condition with diabetic polyneuropathy, with long-term current use of insulin (CMS/HCC) (Primary Dx); Onychomycosis; Toe pain, bilateral [facility] Comment on above: Diabetes mellitus du e to underlying condition with diabetic polyneuropathy, with long-term current use of insulin (CMS/HCC) (Primary Dx); Onychomycosis; Toe pain, bilateral Start: 06-04-2022 Creatinine measurement Creatinine mo nitoring [facility] Start: 06-04-2022 Potassium monitoring Potassium monit oring [facility] Start: 03-07-2021 Influenza vaccination Flu vaccine (# 1) [facility] Start: 2004 Shingles Vaccine (1 of 2) Shingles Vaccine (1 of 2) [facility] Start: 1999 Screening for malign ant neoplasm of colon Colon cancer screen colonoscopy [facility] Start: 1966 COVID-19 Vaccine (1) COVID-19 Vaccin e (1) [facility] Start: 1964 Lipid panel Lipid screen [facility] Start: 1955 Hepatitis C screening Hepatitis C sc reen [facility] EKG 12 Lead EKG 12 Lead ECG STAT 06/04/2021 7:12 PM EST [facility] End: 06-04-2021 Glucose [Mass/volume] in Serum or Plasma [facility] Work Phone: Comment on above: One Time for 1 Occur rences starting 06/04/2021 until 06/04/2021 Payers Date Payer Category Payer Unknown [id number] 2022 Medicare [facility] MEDICARE CO MPLETE [facility] MEDICARE COMPLETE ([employer]) [id number] 2022-Present [address] [address] [place] [address] [id number] 2022 Medicare (Managed Care) [id number]. [id number] 2022 Unknown [id number] 2017 Unknown [id number] 1959 Unknown [id number] 1955 Unknown [id number] [id number]. 647 1955 Unknown [id number] [id number]. 593 1954 Unknown [id number] [id number]. 593 1955 Unknown [id number] [id number]. 1259 1954 Unknown [id number] [id number]. 1259 1954 Unknown [id number] [id number]. 1259 1955 Unknown [id number] [id number]. 1259 1954 Unknown [id number] [id number]. 1259 1954 Unknown [id number] [id number]. 1259 1955 Unknown [id number] [id number]. 1259 Medicare [id number] Social History Date Type Detail Facility Start: 06-04-2021 End: 11-27-2022 Tobacco smoking status NHIS Never smoked tobacco [facility] Phone: Start: 06-04-2021 End: 11-27-2022 Tobacco use and exposure Smokeless tobacco non-user [facility] Phone: Start: 06-04-2021 End: 11-18-2024 Alcohol intake Lifetime non-drinker (finding) [facility] Phone: Start: 06-04-2021 History SDOH Alcohol Frequency 1 [facility] Phone: Start: 1955 Sex Assigned At Not on file [facility] Phone: Start: 02-26-2024 End: 10-19-2024 History of Social function [facility] Start: 02-26-2024 End: 10-19-2024 Tobacco use panel [facility] Start: 1955 Sex assigned at Male [facility] Start: 10-16-2023 Gender identity Identifies as [...] Note Allergies reveiwed. Rx sent to pharmacy [facility] 09-20-2024 Miscellaneous Notes Allergies reveiwed. Rx sent to pharmacy Patient called in stating he needs an antibiotic sent to his pharmacy. documented in this encounter [facility] 09-20-2024 Telephone encounter Note Patient called in stating he needs an antibiotic sent to his pharmacy. [facility] 06-16-2024 Note Patient here for [...] All other systems reviewed and are negative. [place] 06-16-2024 Note Cardiovascular [facility] SUBJECTIVE Chief Complaint Patient presents with Coronary [...] without complication (CMS/HCC) Type 1 diabetes mellitus ([facility]) Shoulder joint pain Positive D-dimer Peripheral venous insufficiency Biceps tendinitis Brachial neuritis Past Medical History: Diagnosis Date CAD (coronary artery disease) Carpal tunnel syndrome CHF (congestive heart failure) ([facility]) CKD (chronic kidney disease) COPD (chronic obstructive pulmonary disease) ([facility]) Diastolic heart failure ([facility]) DM (diabetes mellitus) ([facility]) GERD (gastroesophageal reflux disease) Hyperlipidemia [...] Normal range of (more content not included)... [place] 05-06-2024 History of Presen t illness Narrative [...] History: Past Medical History: Diagnosis Date Diabetes ([facility]) Gout Neuropathy in diabetes ([facility]) Onychomycosis Tinea pedis Medications: Current [...] Partner Violence: Unknown (08/28/2023) Received from [facility], [facility] [place] [employer] Fear of [...] and negative PT pedal pulses NEURO: 5.07 [place] Lenin monofilament test diminished to digits and forefoot bilaterally 125Hz tuning fork diminished to 1st MPJ bilaterally ORTHO: Positive pain on palpation to nails 1 through 10 ASSESSMENT 1. Diabetes mellitus due to underlying condition with diabetic polyneuropathy, with long-term current use of insulin ([facility]) 2. Pain due to onychomycosis of toenails of both feet PLAN Discussed proper foot care with patient today. Debride nails in length and thickness digits 1 through 10 Jeffry Garces DPM documented in this encounter [facility] 02-26-2024 History of Presen t [...] History: Past Medical History: Diagnosis Date Diabetes ([facility]) Gout Neuropathy in diabetes ([facility]) Onychomycosis Tinea pedis Medications: Current [...] Partner Violence: Unknown (08/28/2023) Received from [facility], [facility] [place] [employer] [place] Fear of [...] and negative PT pedal pulses NEURO: 5.07 [place] Lenin monofilament test diminished to digits and [...] Jeffry Garces DPM documented in this encounter [facility] 06-04-2021 Hospital Discharg Latoya Haro DO - 06/04/2021 Please call your primary care doctor tomorrow regarding additional management of your diabetes and med adjustments. Return to ER if you start to feel ill, monitor your glucose at home with frequent checks. documented in this encounter [facility]: Evaluation note Diagnosis Hypoglycemia- Primary Hypoglycemia, unspecified documented in this encounter [facility] Phone: evaluation note* Diagnosis Diabetes mellitus due to underlying condition with diabetic polyneuropathy, with long-term current use of insulin (CMS/HCC)- Primary Pain due to onychomycosis of toenails of both feet documented in this encounter [facility]* Diagnosis Diabetes mellitus due to underlying condition with diabetic polyneuropathy, with long-term current use of insulin (CMS/HCC)- Primary Onychomycosis Dermatophytosis of nail Toe pain, bilateral documented in this encounter [facility]* Diagnosis Diabetes mellitus due to underlying condition with diabetic polyneuropathy, with long-term current use of insulin (CMS/HCC)- Primary Pain due to onychomycosis of toenails of both feet documented in this encounter [facility]* Diagnosis History of total knee replacement, unspecified laterality- Primary documented in this encounter [facility]* Diagnosis Diabetes mellitus due to underlying condition with diabetic polyneuropathy, with long-term current use of insulin (CMS/HCC)- Primary Pain due to onychomycosis of toenails of both feet documented in this encounter [facility] Healthcare[facility] of Present illness Narrative* Jeffry Garces DPM - 09/02/2024 10:40 AM EST Patient: Mackenzie [...] History: Past Medical History: Diagnosis Date Diabetes ([facility]) Gout Neuropathy in diabetes ([facility]) Onychomycosis Tinea pedis Medications: Current [...] Partner Violence: Unknown (08/28/2023) Received from [facility], [facility] [place] [employer] [place] Fear of [...] and negative PT pedal pulses NEURO: 5.07 [place] Lenin monofilament test diminished to digits and forefoot bilaterally 125Hz tuning fork diminished to 1st MPJ bilaterally ORTHO: Positive pain on palpation to toenails of the left 1,2,3,4,5 toes and right 1,2,3,4,5 toes ASSESSMENT 1. Diabetes mellitus due to underlying condition with diabetic polyneuropathy, with long-term current use of insulin ([facility] [place]) 2. Pain due to onychomycosis of toenails of both feet PLAN Discussed proper foot care with patient today. Debride nails in length and thickness digits 1 through 10 Jeffry Garces DPM documented in this encounterNOMD HealthcareHistory of Present illness Narrative * Jeffry [...] History: Past Medical History: Diagnosis Date Diabetes ([facility]) Gout Neuropathy in diabetes ([facility]) Onychomycosis Tinea pedis Medications: Current [...] Partner Violence: Unknown (08/28/2023) [facility] from [facility] [place] Safety & Environment Fear of [...] and negative PT pedal pulses NEURO: 5.07 [place] Lenin monofilament test diminished to digits and forefoot bilaterally 125Hz tuning fork diminished to 1st MPJ bilaterally ORTHO: Positive pain on palpation to toenails of the left 1,2,3,4,5 toes and right 1,2,3,4,5 toes ASSESSMENT 1. Diabetes mellitus due to underlying condition with diabetic polyneuropathy, with long-term current use of insulin ([facility] [place]) 2. Pain due to onychomycosis [...] Records Found Hospital Course Note MR#: [id number] [facility] Pt. Name: Mackenzie Dumont Admitted: 06/11/2019 [...] section and content) DATE CREATED AUTHOR 07/07/2019 [facility] DATE CREATED AUTHOR AUTHOR'S ORGANIZ ATION 06/08/2021 [facility] DATE CREATED AUTHOR AUTHOR'S ORGANIZ ATION 04/12/2022 [facility] DATE CREATED AUTHOR AUTHOR'S ORGANIZ ATION 09/06/2023 [facility] EPIC DATE CREATED AUTHOR AUTHOR'S ORGANIZ ATION 11/19/2024 [facility] EPIC DATE CREATED AUTHOR AUTHOR'S ORGANIZ ATION 12/04/2024 [facility] Reason for Visit (unrecogniz ed section and [...] mL/hr, Administer over 1 Hours, ONCE, On 06/04/21 at 1915, For 1 dose 1934 (New Bag - Prov ider: Cindy Quick RN)3936 (Stopped - Provider: Cindy Quick RN) No Frequency Medication Order 06/02/2021 06/03/2021 06/04/2021 dextrose 50 % solution Starting on Fri06/04/21 at 1905, For 1 dose, Dubach, Amber: cabinet override 191 (Due) dextrose 50 % solution Starting on Fri06/04/21 at 1908, For 1 dose, Dubach, Amber: cabinet override 191 (Due) Care Teams (unrecognized sec tion and content) Oem Sales Manager Relationship Specialty Start Date End Date Josh Pro MD [address] [place] [address] PCP - General Family Medicine 06/04/21 Oem Sales Manager Relationship Specialty Start Date End Date Josh Pro MD [address] [place] [address] PCP - General Family Medicine 09/02/24 Oem Sales Manager Relationship Specialty Start Date End Date Josh Pro MD [address] [place] [address] PCP - General Family Medicine 09/02/24 Oem Sales Manager Relationship Specialty Start Date End Date Josh Pro MD [address] [place] [address] PCP - General Family Medicine 09/02/24 Oem Sales Manager Relationship Specialty Start Date End Date Josh Pro MD [address] [place] [address] PCP - General Family Medicine 09/02/24 Oem Sales Manager Relationship Specialty Start Date End Date Josh Pro MD [address] [place] [address] PCP - General Family Medicine 09/02/24 FOR RECORDS PERTAINING TO PATIENTS WHO [...] BE BASED ON THE PRIMARY CLINICAL RECORDS. [employer] [facility]. provides no warranty or guarantee of the accuracy or completeness of information in this document.
[2024-12-15 07:44] LABS: Basophils Percent Auto 0.3 % (0.2-2.0); Eosinophils Absolute Auto 0.1 10^3/uL (0.0-0.7); Eosinophils Percent Auto 1.2 % (0.9-7.0); Hematocrit 41.7 % (42.0-54.0); Hemoglobin 14.2 g/dL (14.0-18.0); Immature Granulocytes Abs Auto 0.03 10^3/uL (0.00-0.03); Immature Granulocytes Pct Auto 0.3 % (0.0-0.5); Lymphocytes Absolute Auto 2.5 10^3/uL (1.2-3.8); Mean Corpuscular HGB Conc 34.1 g/dL (29.9-35.2); Mean Corpuscular Hemoglobin 31.3 pg (25.9-34.0); Mean Corpuscular Volume 91.9 fL (80.0-94.0); Mean Platelet Volume 9.3 fL (9.5-13.5); Monocytes Absolute Auto 0.8 10^3/uL (0.3-0.8); Monocytes Percent Auto 7.1 % (1.7-12.0); Neutrophils Absolute Auto 7.1 10^3/uL (1.4-6.5); Neutrophils Percent Auto 67.1 % (43.0-75.0); Platelet Count 182 10^3/uL (150-450); Red Blood Count 4.54 10^6/uL (4.70-6.10); Red Cell Distribution Width 12.4 % (11.0-15.0); White Blood Count 10.5 10^3/uL (4.0-11.0)
[2024-12-15 07:54] LABS: Alanine Aminotransferase 22 U/L (16-63); Albumin Globulin Ratio 0.9; Albumin Level 3.5 g/dL (3.4-5.0); Alkaline Phosphatase 59 U/L (46-116); Anion Gap 12.6; Aspartate Amino Transferase 17 U/L (15-37); BUN Creatinine Ratio 21.7; Bilirubin Total 0.6 mg/dL (0.2-1.0); Carbon Dioxide 30.8 mmol/L (21.0-32.0); Chloride 105 mmol/L (98-107); Estimated GFR (African America 59 (>=60 mL/min/1.73m^2); Estimated GFR (Non-African Ame 49 (>=60 mL/min/1.73m^2); Globulin 3.7 g/dL; Glucose 87 mg/dL (74-106); Potassium 3.4 mmol/L (3.5-5.1); Sodium 145 mmol/L (136-145); Total Protein 7.2 g/dL (6.4-8.2)
[2024-12-15 07:57] LABS: Chol HDL Ratio 2.6; Cholesterol 118 mg/dL (<=200); HDL Cholesterol 45 mg/dL (40-60); LDL Cholesterol Calculated 47.2 mg/dL; Triglycerides 129 mg/dL (<=150); Uric Acid 7.3 mg/dL (3.5-7.2); VLDL CHOLESTEROL 25.8 mg/dL
[2024-12-15 07:57] LABS: Creatinine Urine Random 159.72 mg/dL (20.00-300.00); Microalbum Creatinine Ratio Ur 41.9 mg/g (0.0-29.9); Microalbumin Urine Random 6.7 mg/dL (<=30.0)
[2024-12-15 08:26] LABS: Estimated Average Glucose 214 mg/dL; Glycohemoglobin A1C 9.1 % (4.5-6.2)
[2024-12-15 08:39] LABS: Prostate Specific Antigen Scrn 0.71 ng/mL (<=4.00)
[2024-12-16 11:13] LABS: PTH, Intact 59 pg/mL (15-65)
== END 2024-12-15 07:06 | disposition home or self-care (01) ==
LOC: LAB 07:11
PROVIDERS: PCP Family Medicine; Visit Provider Family Medicine
DX: E11.22 Type 2 diabetes mellitus with diabetic chronic kidney disease (principal); I50.41 Acute combined systolic (congestive) and diastolic (congestive) heart failure; Z12.5 Encounter for screening for malignant neoplasm of prostate; M1A.9XX0 Chronic gout, unspecified, without tophus (tophi); N18.31 Chronic kidney disease, stage 3a
CPT/HCPCS: 36415; 80053; 80061; 82043; 82306; 82570; 83036; 83880; 83970; 84550; 85025; G0103

== ENCOUNTER 2024-12-15 07:13 | Outpatient (OUT) | payer MEDICARE, SELFPAY ==
--- OUTSIDE RECORDS SUMMARY | 2024-01-12 06:50 | XMS_ITS ---
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 Bus Trolley Name Role Phone Heena Valentine Unavailable [phone] REASON FOR VISIT Right tibial plateau fx Encounters Encounter Location Date Provider Diagnosis [facility] Office [address] [place] [address] [place] [address] 01/12/2024 Heena Jordanland Closed fracture of right tibial plateau with routine healing, subsequent encounter S82.141D Assessments Encounter Date Diagnosis (ICD Code) Assessment Notes Treatment Notes Treatment Clinical Notes Section Notes 01/12/2024 Closed fracture of right tibial plateau with routine healing, subsequent encounter (ICD-10 - S82.141D) 01/12/2024 Other At this time we will have patient start to progress to full weightbearing. I have discussed this progression with the patient, who voices understanding. I have recommended against the patient driving yet. We will see him back in 4 weeks with an x-ray and to reassess his progress. Plan Of Treatment Treatment Notes Assessment Notes Other At this time we will have patient start to progress to full weightbearing. I have discussed this progression with the patient, who voices understanding. I have recommended against the patient driving yet. We will see him back in 4 weeks with an x-ray and to reassess his progress. Pending Test Test Name Order Date SCC- KNEE 2VIEW RIGHT [id number] 01/12/2024 Next Appt Details Follow Up: 4 Weeks, Reason: Progress Notes * MACKENZIE SKY RDOB:1955 (68 yo M)Acc No.[id number]:01/12/2024 Patient: Ge ISISGUERITAMACKENZIE Provider: MADELEINE Londono :1955 A ge:68 Y S ex:Male Date:01/12/2024 Address:[address] [place] [address] [address] [id number] Subjective: * Chief Complaints: * 1 . Right tibial plateau fx. * HPI: G eneral Follow Up Information: Patient returns to the office for follow-up of his right tibial plateau fracture. He is approximately 3 months out from his injury now and has been working on progressing his weightbearing to 50% on his right lower extremity. Patient states that this is going well and his pain is minimal with ambulation with a walker. He states that he is getting some soreness to the outside of his right lower leg. * Medical History: * Medications: N one Objective: * Vitals: * Examination: G eneral examination: O n exam patient is in no distress, age-appropriate, alert and oriented x 3. On inspection the skin is intact with no erythema or warmth to touch. There is no tenderness to the lateral joint line, and some mild tenderness to the medial joint line. There is also some tenderness to the lateral right lower leg, but no tenderness to palpation of the calf or tibial shaft. There is full ROM of the right knee. . X -ray Imaging Studies: 2 view x-rays of the right knee were obtained in office today and reviewed interpreted by myself as a lateral tibial plateau fracture with callus formation. No displacement of the fracture apparent. Assessment: * Assessment: 1. C losed fracture of right tibial plateau with routine healing, subsequent encounter - S82.096D (Primary) Plan: * Treatment: 2. O thers Notes: At this time we will have patient start to progress to full weightbearing. I have discussed this progression with the patient, who voices understanding. I have recommended against the patient driving yet. We will see him back in 4 weeks with an x-ray and to reassess his progress. * Follow Up: 4 Weeks Forms: * Images: * Sign off status: Completed true * Provider: MADELEINE Londono Date: 0 01/12/2024 Generated for Terry pittman/Faxing/eTransmitting on: 0 12/15/2024 07:15 AM EDT History and Physical Notes * HPI (History of Present Illness) Category Sub-Category Detail Notes Category Not es General Follow Up Information Patient returns to [facility] office for follow-up of his right tibial plateau fracture. He is approximately 3 months out from his injury now and has been working on progressing his weightbearing to 50% on his right lower extremity. Patient states that this is going well and his pain is minimal with ambulation with a walker. He states that he is getting some soreness to the outside of his right lower leg. Examination Category Sub-Category Detail Notes Category Not es General examination On exam patient is in no distress, age-appropriate, alert and oriented x 3. On inspection the skin is intact with no erythema or warmth to touch. There is no tenderness to the lateral joint line, and some mild tenderness to the medial joint line. There is also some tenderness to the lateral right lower leg, but no tenderness to palpation of the calf or tibial shaft. There is full ROM of the right knee. X-ray Imaging Studies 2 view x-rays of the right knee were obtained in office today and reviewed interpreted by myself as a lateral tibial plateau fracture with callus formation. No displacement of the fracture apparent.
--- OUTSIDE RECORDS SUMMARY | 2024-02-09 06:20 | XMS_ITS ---
Author Organization [facility] Address [address] [place] [address] Care Team Providers Care Stone Sawyer Name Role Phone Julian Oneill Unavailable [phone] Allergies No Known Allergies REASON FOR VISIT right knee tibial plat fracture cehck Social History Tobacco Use: Social History Observation Description Date Details (start date - stop date) Never Smoker NA - NA AUDIT-C (Standard) Question Answer Notes Did you have a drink containing alcohol in the p ast year? No Points 0 Interpretation Negative Tobacco Control (Standard) Question Answer Notes Tobacco use: Nonsmoker Vital Signs Height 5'9 in 02/09/2024 Weight 295 lbs 02/09/2024 BMI 43.56 02/09/2024 Encounters Encounter Location Date Provider Diagnosis [facility] [address] [place] [address] [place] [address] 02/09/2024 Julian Oneill Closed fracture of right tibial plateau with routine healing, subsequent encounter S82.141D Assessments Encounter Date Diagnosis (ICD Code) Assessment Notes Treatment Notes Treatment Clinical Notes Section Notes 02/09/2024 Closed fracture of right tibial plateau with routine healing, subsequent encounter (ICD-10 - S82.141D) 02/09/2024 Other Patient is doing well full weightbearing with a cane. He will continue to progress activities as tolerated. He will follow-up in 2 months to repeat a likely final set of x-rays. I have discussed a 6 with him that he has a significant amount of arthritis and consideration in the future for injections if he starts having more pain would be an option. Import medication Plan Of Treatment Treatment Notes Assessment Notes Other Patient is doing well full weightbearing with a cane. He will continue to progress activities as tolerated. He will follow-up in 2 months to repeat a likely final set of x-rays. I have discussed a 6 with him that he has a significant amount of arthritis and consideration in the future for injections if he starts having more pain would be an option. Import medication Pending Test Test Name Order Date SCC- KNEE 2VIEW RIGHT [id number] 02/09/2024 Next Appt Details Follow Up: 2 Months, Reason: Progress Notes * MACKENZIE SKY RDOB:1955 (68 yo M)Acc No.[id number]:02/09/2024 Patient: MACKENZIE LEWIS Provider: Geovanny Oneill MD :1955 A ge:68 Y S ex:Male Date:02/09/2024 Address:[address] [place], [place] [id number] Subjective: * Chief Complaints: * R ight knee tibial plat fracture cehck * [facility] Information: Patient presents today for follow-up of his right tibial plateau fracture doing well. He reports not having much in terms of pain. * Medical History: * Surgical History: N o Surgical History documented. * Family History: N o Family History documented.. * Social History: A KAMERON-C (Standard) D id you have a drink containing alcohol in the past year? N o,?Points 0 , I nterpretation N egative. T obacco Control (Standard) T obacco use: N onsmoker. * Medications: N one * Allergies: N .K.D.A.no[Allergies Verified] Objective: * Vitals: H t: 5'9 , Wt: 295 lbs, BMI:43.56. * Examination: G eneral examination: R ight knee today has a mild joint effusion. Good knee range of motion. No gross instability. No tenderness to palpation. X -ray Imaging Studies: X -rays of his knee show the lateral tibial plateau fracture is still slightly visualized . M RI Imaging Studies: Assessment: * Assessment: 1. C losed fracture of right tibial plateau with routine healing, subsequent encounter - S86.974Y (Primary) Plan: * Treatment: 2. O thers Notes: Patient is doing well full weightbearing with a cane. He will continue to progress activities as tolerated. He will follow-up in 2 months to repeat a likely final set of x-rays. I have discussed a 6 with him that he has a significant amount of arthritis and consideration in the future for injections if he starts having more pain would be an option. Import medication * Procedure Codes: * Follow Up: 2 Months Forms: * Images: * Sign off status: Completed true * Provider: Geovanny Oneill MD Date: 0 02/09/2024 Generated for Terry pittman/Tracey/Cucaitting on: 0 12/15/2024 07:15 AM EDT History and Physical Notes * HPI (History of Present Illness) Category Sub-Category Detail Notes Category Not es General Follow Up Information Patient presents tod ay for follow-up of his right tibial plateau fracture doing well. He reports not having much in terms of pain. Examination Category Sub-Category Detail Notes Category Not es General examination Right kn ee today has a mild joint effusion. Good knee range of motion. No gross instability. No tenderness to palpation. X-ray Imaging Studies X-rays of his knee show the lateral tibial plateau fracture is still slightly visualized MRI Imaging Studies
--- OUTSIDE RECORDS SUMMARY | 2024-04-12 06:00 | XMS_ITS ---
Author Organization [facility] Address [address] [place] [address] Care Team Providers Care Family Resource Management Professor Name Role Phone Heena Valentine Unavailable [phone] REASON FOR VISIT 2 MONTH F/U RT KNEE TIB PLAT FX CARE Encounters Encounter Location Date Provider Diagnosis [facility] Office [address] [facility] [place] [address] 04/12/2024 Heena Valentine Closed fracture of right [...] Name Order Date SCC- KNEE 2VIEW RIGHT [id number] 04/12/2024 Next Appt Details Follow Up: prn, Reason: Progress Notes * MACKENZIE SKY RDOB:1955 (68 yo M)Acc No.[id number]:04/12/2024 Patient: MACKENZIE LEWIS Provider: MADELEINE Londono :1955 A ge:68 Y S ex:Male Date:04/12/2024 Address:[address] [place], [place] [address] Subjective: * Chief Complaints: * 1 . [...] Completed true * Provider: MADELEINE Londono Date: Generated for Terry pittman/Tracey/Destiny on: 0 12/15/2024 07:16 AM EDT History and Physical Notes * [...]
--- OUTSIDE RECORDS SUMMARY | 2024-08-16 10:28 | XMS_ITS ---
Author Organization [facility] [place] Address [address] [place] [address] Care Team Providers Care Field Artillery Basic Name Role Phone Josh Talavera Primary Care Provider [phone] Jv De Santiago Unavailable [phone] REASON FOR VISIT PAP Compliance Encounters Encounter Location Date Provider Diagnosis [facility] [place] [address] [place] [address] 08/16/2024 Jv De Santiago Plan Of Treatment Next Appt Details Provider Name:Josh pittman, 12/23/2024 09:00:00 AM, [address] [place], [address], Provider Name:Jv De Santiago, 08/16/2025 10:00:00 AM, [address] [place], [address], Progress Notes * Nicholas SKY RDOB:1955 (69 yo M)Acc No.[id number]:08/16/2024 Patient: Ge Nicholas TORRES :1955 A ge:69 Y S ex:Male Address:[address] [place] [address] [address], [place], [address] * true * Date: Generated for Terry pittman/Tracey/eTransmitting on: 0 12/15/2024 07:16 AM EDT
--- OUTSIDE RECORDS SUMMARY | 2024-08-18 06:00 | XMS_ITS ---
Author Organization [facility] in [employer] Address [address] [place] [address] Care Team Providers Care Systems Manager Name Role Phone Ilan Josh Primary Care Provider Jv De Santiago [phone] Allergies No Known Allergies REASON FOR VISIT 1YEAR-IMAN/OHS Medications Medication SIG (Take, Route, Frequency, Duration) Notes Start Date End Date Status oxyCODONE-Acetaminophen 5-325 MG 1 tablet as needed Orally q4 hours 10/29/2023 Not-Taking Ozempic (0.25 or 0.5 MG/DOSE) 2 MG/3ML INJECT 0.5 MG UNDER THE SKIN ONCE EVERY WEEK for 28 Not-Taking FreeStyle Abdon 2 Sensor - USE DIRECTED AND CHANGE EVERY 2 WEEKS for 28 Not-Taking Omeprazole 20 MG 1 capsule 30 minutes before morning meal Orally Once a day 10/29/2023 Active ZyrTEC Active Lantus SoloStar 100 UNIT/ML INJECT 70 UNITS UNDER THE SKIN EVERY MORNING AND 58 UNITS EVERY EVENING for 80 Active Latanoprost 0.005 % 1 drop into affected eye in the evening Ophthalmic Once a day Active Losartan Potassium 50 MG TAKE 1 TABLET B Y MOUTH EVERY DAY for 90 Active Metoprolol Tartrate 50 MG TAKE 1 TABLET BY MOUTH TWICE DAILY WITH FOOD Active Multivitamin Active hydrALAZINE HCl 100 MG 1 tablet with rupali d Orally BID Active Gabapentin 600 MG TAKE 2 TABLETS BY MO UTH TWICE DAILY Active Farxiga 5 MG 1 tablet Orally Once a day for 30 days 07/15/2024 Active Furosemide 40 MG TAKE 1 TABLET BY KLAUS TH EVERY DAY Orally Once a day for 90 days Active Allopurinol 100 MG TAKE 1 TABLET BY KLAUS TH EVERY DAY for 90 Active amLODIPine Besylate 10 MG TAKE 1 TABLET BY MOUTH EVERY DAY Active Aspirin 325 MG 1 tablet Orally Once a day Active Atorvastatin Calcium 80 MG TAKE 1 TABLET BY MOUTH DAILY Active BD Pen Needle Short U/F 31G X 8 MM USE FOUR TIMES DAILY DIRECTED for 90 Active Social History Tobacco Use: Social History Observation Description Date Details (start date - stop date) Never Smoker NA - NA Tobacco Control (Standard) Question Answer Notes Tobacco use: Nonsmoker Problems Problem Type SNOMED Code ICD Code Onset Dates Problem Status W/U Status Risk Notes Problem Chronic respiratory failure (56906833) Chronic respiratory failure with hypoxia (J96.11) Active confirmed Vital Signs Weight 299.0 lbs 08/18/2024 Height 69 in 08/18/2024 Blood pressure systolic 138 mm Hg 08/18/19 25 Blood pressure diastolic 69 mm Hg 025 Temperature 97.0 degrees Fahrenheit 08/18/19 25 Heart Rate 55 /min 08/18/2024 Respiratory Rate 18 /min 08/18/2024 BMI 44.15 kg/m2 08/18/2024 Oximetry 95 % 08/18/2024 Encounters Encounter Location Date Provider Diagnosis Pulmonary Medicine [address] [address] 08/18/2024 Jv De Santiago IMAN (obstructive sle ep apnea) G47.33 ; Obesity hypoventilation syndrome E66.2 ; Chronic respiratory failure with hypoxia J96.11 ; Chronic respiratory failure with hypercapnia J96.12 and Morbid (severe) obesity due to excess calories E66.01 Assessments Encounter Date Diagnosis (ICD Code) Assessment Notes Treatment Notes Treatment Clinical Notes Section Notes 08/18/2024 IMAN (obstructive sleep apnea) (ICD-10 - G47.33) Eqcd-xt-omef encounter performed with the patient to document continued need for PAP therapy. -DME: [facility] -PS12/12/2015; Initial AHI: 55 -Last PAP titration 07/14/2019: BiPAP @ 14/03baJ7P -Compliance was reviewed from 07/19/2024 - 08/17/2024 -Total days used: (97%) -Total of all days >4 hours of use: 25/30 (83%) -Current model, mode, & pressure: AirCurve 10 VAuto BiPAP 15/10 -Residual AHI: 0.6 -Air leak (95th percentile): 8.2L/min -Mask/harness fitting: Great -Sleep quality: Improved with use -Daytime hypersomnolence: Decreased -Recommendations: Patient continues to have great compliance with BiPAP and voiced benefit. AHI resolved from 55 to 0.6 with current settings. His machine is old and not transmitting via 5G. Will attempt to order a new BiPAP. I do not see a clinical reason why he would require a new PAP compliance study - any required study is a waste of money in my opinion, but Medicare guidelines may require it. Patient was reminded to continue to wear the PAP @ bedtime and with any naps. -Note: This pbrl-cr-aqdv visit comes with my authorization that the patient's DME may request to renew, reorder, and/or replace tubing, supplies, mask, and/or PAP device (if applicable). 08/18/2024 Obesity hypoventilation syndrome (ICD-10 - E66.2) Treated with BiPAP. Complinance is great as above. 08/18/2024 Chronic respiratory failure with hypoxia (ICD-10 - J96.11) Zdaq-gq-oxcb encounter performed with the patient to document continued need for supplemental oxygen (O2). -Prior testing: Nocturnal pulse ox 06/14/2019:---Init iated @ rest: SpO2 81% on RA, placed on 2L/min---Time spent with SpO2 <88%: 24 minutes, 20 seconds (5.9% testing)-Flow & directions: 2L/min O2 bled-in to BiPAP-Counseled patient not begin, restart, or continue smoking, around the O2 due to risk of fire which could result in damage to the O2 tanks & lines, smoke inhalation and flame damage to the airway, significant linda, potential , property damage, and potential harm & to bystanders. Additionally, counseled it is not negrete to begin, restart, or continue smoking given the underlying pulmonary disease that led to the point of requiring O2.-Recommendatio ns: Continue O2 @ 2L/min bleed-in 08/18/2024 Chronic respiratory failure with hypercapnia (ICD-10 - J96.12) Prior testing: --ABG 06/15/2019: On RA- pH 7.45, pCO2 60, PaO2 49--ABG 06/11/2019: On 3L/min- pH 7.38, pCO2 70, PaO2 63 Associated with OHS. Treated with BiPAP - AHI 0.6. No evidence of acute hypercapnia. 08/18/2024 Morbid (severe) obesity due to excess calories (ICD-10 - E66.01) Patient's weight is inducing a restrictive pulmonary physiology. Weight loss indicated: Decrease calories, increase activity. Plan Of Treatment Treatment Notes Assessment Notes IMAN (obstructive sleep apnea) Cgef-vg-fsyn encounter performed with the patient to document continued need for PAP therapy. -DME: [facility] -PS12/12/2015; Initial AHI: 55 -Last PAP titration 07/14/2019: BiPAP @ 14/57geU4D -Compliance was reviewed from 07/19/2024 - 08/17/2024 -Total days used: 29/30 (97%) -Total of all days >4 hours of use: 25/30 (83%) -Current model, mode, & pressure: AirCurve 10 VAuto BiPAP 15/10 -Residual AHI: 0.6 -Air leak (95th percentile): 8.2L/min -Mask/harness fitting: Great -Sleep quality: Improved with use -Daytime hypersomnolence: Decreased -Recommendations: Patient continues to have great compliance with BiPAP and voiced benefit. AHI resolved from 55 to 0.6 with current settings. His machine is old and not transmitting via 5G. Will attempt to order a new BiPAP. I do not see a clinical reason why he would require a new PAP compliance study - any required study is a waste of money in my opinion, but Medicare guidelines may require it. Patient was reminded to continue to wear the PAP @ bedtime and with any naps. -Note: This zpvn-js-jxgg visit comes with my authorization that the patient's DME may request to renew, reorder, and/or replace tubing, supplies, mask, and/or PAP device (if applicable). Obesity hypoventilation syndrome Treated with BiPAP. Complinance is great as above. Chronic respiratory failure with hypoxia Ymmd-ew-ljqy encounter performed with the patient to document continued need for supplemental oxygen (O2). -Prior testing: Nocturnal pulse ox 06/14/2019:---Initiated @ rest: SpO2 81% on RA, placed on 2L/min---Time spent with SpO2 <88%: 24 minutes, 20 seconds (5.9% testing)-Flow & directions: 2L/min O2 bled-in to BiPAP-Counseled patient not begin, restart, or continue smoking, around the O2 due to risk of fire which could result in damage to the O2 tanks & lines, smoke inhalation and flame damage to the airway, significant linda, potential , property damage, and potential harm & to bystanders. Additionally, counseled it is not negrete to begin, restart, or continue smoking given the underlying pulmonary disease that led to the point of requiring O2.-Recommendations: Continue O2 @ 2L/min bleed-in Chronic respiratory failure with hyperca pnia Prior testing: --ABG 06/15/2019: On RA- pH 7.45, pCO2 60, PaO2 49--ABG 06/11/2019: On 3L/min- pH 7.38, pCO2 70, PaO2 63 Associated with OHS. Treated with BiPAP - AHI 0.6. No evidence of acute hypercapnia. Morbid (severe) obesity due to excess calories Patient's weight is inducing a restrictive pulmonary physiology. Weight loss indicated: Decrease calories, increase activity. Next Appt Details Follow Up: 1 Year, Reason: O SA/OHS Provider Name:Josh pittman, 12/23/2024 09:00:00 AM, [address] [place], [address], Provider Name:Jv De Santiago, 08/16/2025 10:00:00 AM, [address] [place], [address], Progress Notes * Nicholas SKY RDOB:1955 (69 yo M)Acc No.[id number]:08/18/2024 Follow Up Patient: Montez LEWISamada Doherty Provider: Laquita De Santiago DO :1955 A ge:69 Y S ex:Male Date:08/18/2024 Address:[address] [place], [place] [id number] Pcp:Josh Talavera Check In:09:50 AM Ernestock O ut:10:33 AM EST Subjective: * Chief Complaints: * 1 YEAR-IMAN/OHS * HPI: E pworth Sleepiness Scale: Patient states he is doing well with his IMAN. He remains compliant with his BiPAP and reports no issues with the mask fitting, pressure, leak, etc. He voices he sleeps well with it and reports improved daytime hypersomnolence. His machine is old (~2015) and does not transmit 5G. DME was able to provide download data. He maintains good compliance and residual AHI is 0.6. MA Intake Comments:. [place] Sleepiness Scale C harjeet of dozing while sitting and reading:?1 - Slight Chance C harjeet of dozing while watching TV: 1 - Slight Chance C harjeet of dozing while sitting in a public place: 0 - Never C harjeet of dozing as a passenger in a car for an hour without a break: 2 - Moderate Chance C harjeet of dozing while lying down in the afternoon to rest: 3 - High Chance C harjeet of dozing while sitting and talking to someone: 0 - Never C harjeet of dozing while sitting quietly after lunch: 1 - Slight Chance C harjeet of dozing in a stopped car for a few minutes in traffic: 0 - Never T OTAL SCORE: 8 Patient presents for a follow up for IMAN. DME:[facility]. Patient denies any complaints or concerns with his machine. Patient reports the machine to an older machine. Data is unable to be transmitted electronically. Patient states he has not receiving any supplies for quite sometime from [facility] and struggles to get what he needs. Patient is on 2L O2 bled into his PAP at . Patient is under the care of [facility] Cardiology. * ROS: G eneral/Constitutional: Fever or sweats d enies. C hange of appetite d enies. C hills d enies. W eight Change d enies. H EENT: Dry mouth d enies. S ore throat d enies. O ral Ulcers d enies. P ost Nasal Drip D enies. C ongestion D enies. H oarseness?Denies. C ardiovascular: Tachycardia d enies. C hest pain d enies. P alpitations d enies. R espiratory: Chest tightness d enies. P leurisy D enies. D yspnea d enies. C ough d enies. H emoptysis d enies. W heezing d enies.? G astrointestinal: Acid Reflux/GERD/Heartburn d enies. D ysphagia d enies. M usculoskeletal: Arthralgias/joint pain D enies. S kin: Easy bruising d enies. R lalita d enies. ? N eurologic: Seizures d enies. T remor d enies. H ematology: Abnormal Bleeding d enies. P sychiatric: Anxiety d enies. 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 Modified On:04/24/2023 Status:confirmed E11.42 Diabetic polyneuropa thy associated with type 2 diabetes mellitus Modified On:04/24/2023 Status:confirmed E66.01 Morbid (severe) obes ity due to excess calories Modified On:08/20/2023 Status:confirmed E78.00 Pure hypercholestero lemia Modified On:2022U Status:confirmed G47.33 IMAN (obstructive sle ep apnea) Modified On:08/20/2023U Status:confirmed G89.29 Other chronic pain Modified On:04/15/2022U Status:confirmed I10 Essential (primary) hypertension Modified On:04/24/2023U Status:confirmed M1A.9XX0 Chronic gout without tophus, unspecified cause, unspecified site Modified On:11/16/2022U Status:confirmed M47.816 Lumbar spondylosis Modified On:11/16/2022U Status:confirmed M72.0 Dupuytren's contract ure of both hands Modified On:11/16/2022 Status:confirmed N18.31 Chronic kidney disea se, stage 3a Modified On:04/24/2023 Status:confirmed Z79.4 longterm (current) use of insulin Modified On:04/24/2023 Status:confirmed E11.649 Type 2 diabetes onel itus with hypoglycemia without coma Modified On:04/24/2023 Status:confirmed I77.810 Thoracic aortic ecta bertha Modified On:10/29/2023 Status:confirmed N18.32 Chronic kidney disea se, stage 3b Modified On:10/29/2023 Status:confirmed E11.3553 Type 2 diabetes onel itus with stable proliferative diabetic retinopathy, bilateral Modified On:10/29/2023 Status:confirmed I50.32 Chronic diastolic (c ongestive) heart failure Modified On:10/29/2023 Status:confirmed G62.9 Neuropathy Modified On:11/04/2023 Status:confirmed G47.30 Sleep apnea Modified On:11/04/2023 Status:confirmed I10 Hypertension Modified On:11/04/2023 Status:confirmed E11.9 DM2 (diabetes [facility], type 2) Modified On:11/04/2023 Status:confirmed Z68.41 Body mass index [BMI ] 40.0-44.9, adult Modified On:11/30/2023 Status:confirmed K21.9 Gastro-esophageal re flux disease without esophagitis Modified On:11/30/2023 Status:confirmed J96.11 Chronic respiratory failure with hypoxia Modified On:08/18/2024 Status:confirmed * Medical History: * Surgical History: c atheterization of right heart 06/2019knee arthroscopy/surgery-L knee meniscus repair skin full graft sclp/arm/leg-L wallace 1992sinus surgery procedure 1998eye surgery 2017carpal tunnel surgery 2002shoulder joint surgery 2007removal of tonsils- as a child knee replacement 2014colonoscopy-rec every 10 years+polyp 05/24/2020cariac catheterization 12/06/2015colonoscopy-diverticulosis 04/06/2008 * Hospitalization/Major Diagno stic Procedure: R tibia fx - 09/2023 * Family History: M other: hyperlipidemia, diagnosed with Unspecified heart disease. B rother(s): hyperlipidemia, diagnosed with Unspecified heart disease. S ister(s): hyperlipidemia, diagnosed with Diabetes mellitus without mention of complication, type II or unspecified type, not stated as uncontrolled, Unspecified heart disease. M aternal Grandfather: malignant tumor of prostate. F ather: diagnosed with Unspecified heart disease. M aternal aunt: diagnosed with Diabetes mellitus without mention of complication, type II or unspecified type, not stated as uncontrolled. * Social History: T obacco Use: T obacco Control (Standard) T obacco use: N onsmoker Electronic Cigarette use C urrent user N o M iscellaneous: O ccupation O ccupation: R etired Whirlpjennifer Pets: none. D rugs/Alcohol: D rugs H ave you used drugs other than those for medical reasons in the past 12 months? N o D oes the Patient have a History of Drug Abuse in the Past? N o Caffeine I ntake: n one Do you drink alcohol?: Yes, Socially. Do you smoke marijuana?: Denies. * Medications: T akingAllopurinol 100 MG Tablet TAKE 1 TABLET BY MOUTH EVERY DAY amLODIPine Besylate 10 MG Tablet TAKE 1 TABLET BY MOUTH EVERY DAY Aspirin 325 MG Tablet 1 tablet Orally Once a day Atorvastatin Calcium 80 MG Tablet TAKE 1 TABLET BY MOUTH DAILY BD Pen Needle Short U/F(Insulin Pen Needle) 31G X 8 MM Miscellaneous USE FOUR TIMES DAILY DIRECTED Farxiga(Dapagliflozin Propanediol) 5 MG Tablet 1 tablet Orally Once a day Furosemide 40 MG Tablet TAKE 1 TABLET BY MOUTH EVERY DAY Orally Once a day Gabapentin 600 MG Tablet TAKE 2 TABLETS BY MOUTH TWICE DAILY hydrALAZINE HCl 100 MG Tablet 1 tablet with food Orally BID Lantus SoloStar(Insulin Glargine) 100 UNIT/ML Solution Pen-injector INJECT 70 UNITS UNDER THE SKIN EVERY MORNING AND 58 UNITS EVERY EVENING Latanoprost 0.005 % Solution 1 drop into affected eye in the evening Ophthalmic Once a day Losartan Potassium 50 MG Tablet TAKE 1 TABLET BY MOUTH EVERY DAY Metoprolol Tartrate 50 MG Tablet TAKE 1 TABLET BY MOUTH TWICE DAILY WITH FOOD Multivitamin Omeprazole 20 MG Capsule Delayed Release 1 capsule 30 minutes before morning meal Orally Once a day ZyrTEC Taking Allopurinol 100 MG Tablet TAKE 1 TABLET BY MOUTH EVERY DAY Taking amLODIPine Besylate 10 MG Tablet TAKE 1 TABLET BY MOUTH EVERY DAY Taking Aspirin 325 MG Tablet 1 tablet Orally Once a day Taking Atorvastatin Calcium 80 MG Tablet TAKE 1 TABLET BY MOUTH DAILY Taking BD Pen Needle Short U/F(Insulin Pen Needle) 31G X 8 MM Miscellaneous USE FOUR TIMES DAILY DIRECTED Taking Farxiga(Dapagliflozin Propanediol) 5 MG Tablet 1 tablet Orally Once a day Taking Furosemide 40 MG Tablet TAKE 1 TABLET BY MOUTH EVERY DAY Orally Once a day Taking Gabapentin 600 MG Tablet TAKE 2 TABLETS BY MOUTH TWICE DAILY Taking hydrALAZINE HCl 100 MG Tablet 1 tablet with food Orally BID Taking Lantus SoloStar(Insulin Glargine) 100 UNIT/ML Solution Pen-injector INJECT 70 UNITS UNDER THE SKIN EVERY MORNING AND 58 UNITS EVERY EVENING Taking Latanoprost 0.005 % Solution 1 drop into affected eye in the evening Ophthalmic Once a day Taking Losartan Potassium 50 MG Tablet TAKE 1 TABLET BY MOUTH EVERY DAY Taking Metoprolol Tartrate 50 MG Tablet TAKE 1 TABLET BY MOUTH TWICE DAILY WITH FOOD Taking Multivitamin Taking Omeprazole 20 MG Capsule Delayed Release 1 capsule 30 minutes before morning meal Orally Once a day Taking ZyrTEC Not-Taking/PRNFreeStyle Abdon 2 Sensor(Continuous Glucose Sensor) - Miscellaneous USE DIRECTED AND CHANGE EVERY 2 WEEKS oxyCODONE-Acetaminophen 5-325 MG Tablet 1 tablet as needed Orally q4 hours Ozempic (0.25 or 0.5 MG/DOSE)(Semaglutide(0.25 or 0.5MG/DOS)) 2 MG/3ML Solution Pen-injector INJECT 0.5 MG UNDER THE SKIN ONCE EVERY WEEK Not-Taking/PRN FreeStyle Abdon 2 Sensor(Continuous Glucose Sensor) - Miscellaneous USE DIRECTED AND CHANGE EVERY 2 WEEKS Not-Taking/PRN oxyCODONE-Acetaminophen 5-325 MG Tablet 1 tablet as needed Orally q4 hours Not-Taking/PRN Ozempic (0.25 or 0.5 MG/DOSE)(Semaglutide(0.25 or 0.5MG/DOS)) 2 MG/3ML Solution Pen-injector INJECT 0.5 MG UNDER THE SKIN ONCE EVERY WEEK DiscontinuedFarxiga(Dapagliflozin Propanediol) 5 MG Tablet 1 tablet Orally Once a day Medication List reviewed and reconciled with the patientDiscontinued Dedrick(Dapagliflozin Propanediol) 5 MG Tablet 1 tablet Orally Once a day Medication List reviewed and reconciled with the patient * Allergies: N .K.DKristinA.no[Allergies Verified] Objective: * Vitals: W t:299.0lbs, Ht: 69 in, BP:sittin/69mm Hg, Temp:Forehead:97.0F, HR:55/min, RR:18/min, BMI:44.15Index, Oxygen sat %:Room Air:95%, Ht-cm: 175.26 cm, Wt-k.62 kg. * Examination: E xam: GENERAL APPEARANCE: A ppears stated age. Skin N ormal. Mouth P ink and moist. Macroglossia with tongue ridging.? Oropharynx M allampati Class III.. Trachea M idline. Chest N ormal. Respiratory Normal M ovements, E ffort N ormal. Auscultation N ormal breath sounds. Cardiac R egular rate and rhythm. Gastrointestinal I ncreased central adiposity. Vascular N o edema. Musculoskeletal N ormal posture. Neurological F ocal, intact. Psychiatric A lert and oriented x3. Mentation/Cognition N ormal. Assessment: * Assessment: 1. O SA (obstructive sleep apnea) - G47.33 (Primary) 2 . O besity hypoventilation syndrome - E66.2 3 . C hronic respiratory failure with hypoxia - J96.11? 4. C hronic respiratory failure with hypercapnia - J96.12 5 . Morbid (severe) obesity due to excess calories - E66.01 Plan: * Treatment: 2. O besity hypoventilation syndrome Notes: Treated with BiPAP. Complinance is great as above. 3. C hronic respiratory failure with hypoxia Notes: Adyg-xt-hxxj encounter performed with the patient to document continued need for supplemental oxygen (O2). -Prior testing: Nocturnal pulse ox 06/14/2019:---Initiated @ rest: SpO2 81% on RA, placed on 2L/min---Time spent with SpO2 <88%: 24 minutes, 20 seconds (5.9% testing)-Flow & directions: 2L/min O2 bled-in to BiPAP-Counseled patient not begin, restart, or continue smoking, around the O2 due to risk of fire which could result in damage to the O2 tanks & lines, smoke inhalation and flame damage to the airway, significant linda, potential , property damage, and potential harm & to bystanders. Additionally, counseled it is not negrete to begin, restart, or continue smoking given the underlying pulmonary disease that led to the point of requiring O2.-Recommendations: Continue O2 @ 2L/min bleed-in 4. C hronic respiratory failure with hypercapnia Notes: Prior testing: --ABG 06/15/2019: On RA- pH 7.45, pCO2 60, PaO2 49--ABG 06/11/2019: On 3L/min- pH 7.38, pCO2 70, PaO2 63 Associated with OHS. Treated with BiPAP - AHI 0.6. No evidence of acute hypercapnia. 5. M orbid (severe) obesity due to excess calories Notes: Patient's weight is inducing a restrictive pulmonary physiology. Weight loss indicated: Decrease calories, increase activity. * Procedure Codes: * Preventive Medicine: Immunization Status: P neumovacc p neumovacc 23-04/16/2021. I nfluenza 1 . B oostrix 0 12/29/2020. Screenings/Counseling: F ALL RISK SCREENING Fall Risk Assessment: N o falls in the past year Are you afraid of falling? N o T OBACCO ACTION PLAN Exclusion: M edical Reason Non Smoker Type of Medical Reason: N ot indicated B UT ACTION PLAN Above Normal BMI Follow-up D ietary management education, guidance, and counseling * Follow Up: 1 Year (Reason: IMAN/OHS) * * Sign off status: Completed Visit Status: C HK (Check Out) true * Provider: Laquita De Santiago DO Date: 08/18/2024 Generated for Terry pittman/Tracey/Cucaitting on: 0 12/15/2024 07:16 AM EDT History and Physical Notes * HPI (History of Present Illness) Category Sub-Category Detail Notes Category Not es [place] Sleepiness Scale [place] Sleepiness Scale Chance of dozing while sitting and reading:: 1 - Slight Chance Patient presents for a follow up for IMAN. DME:[facility]. Patient denies any complaints or concerns with his machine. Patient reports the machine to an older machine. Data is unable to be transmitted electronically. Patient states he has not receiving any supplies for quite sometime from [facility] and struggles to get what he needs. Patient is on 2L O2 bled into his PAP at . Patient is under the care of [facility] Cardiology. Chance of dozing while watching TV:: 1 - Slight Chance Chance of dozing while sitting in a publ ic place:: 0 - Never Chance of dozing as a passen annalee in a car for an hour without a break:: 2 - Moderate Chance Chance of dozing while lying down in the afternoon to rest:: 3 - High Chance Chance of dozing while sitting and talki ng to someone:: 0 - Never Chance of dozing while sitting quietly a fter lunch:: 1 - Slight Chance Chance of dozing in a stopped car for a few minutes in traffic:: 0 - Never TOTAL SCORE:: 8 Examination Category Sub-Category Detail Notes Category Not es Exam GENERAL APPEARANCE: Appears stated age Skin Normal Mouth [place] and moist. Macr oglossia with tongue ridging Trachea Midline Chest Normal Respiratory Normal Movements, Ef fort Normal Auscultation Normal breath sounds Cardiac Regular rate and rhy thm Gastrointestinal Increased central ad iposity Vascular No edema Musculoskeletal Normal posture Neurological Focal, intact Psychiatric Alert and oriented x 3 Mentation/Cognition Normal Oropharynx Mallampati Class III .
--- OUTSIDE RECORDS SUMMARY | 2024-10-11 09:41 | XMS_ITS ---
Author Organization The [facility] in [place] Address [address] [place] [address] Care Team Providers Care Tub Tender Name Role Phone Josh Talavera Primary Care Provider REASON FOR VISIT med refill Medications Medication SIG (Take, Route, Fr equency, Duration) Notes Start Date End Date Status Gabapentin 600 MG TAKE 2 TABLETS BY MO UTH TWICE DAILY orally BID for 30 days Act srini Encounters Encounter Location Date Provider Diagnosis [facility] [address] [place] [address] 10/11/2024 Josh Talavera Type 2 diabetes mellitus [...] Name:Josh pittman, 12/23/2024 09:00:00 AM, [address] [place], [address], Provider Name:Jv De Santiago, 08/16/2025 10:00:00 AM, [address] [place], [address], Progress Notes * Nicholas SKY RDOB:1955 (69 yo M)Acc No.[id number]:10/11/2024 Patient: Nicholas LEWIS :1955 A ge:69 Y S ex:Male Address:[address], [address] * Refills Refill Gabapentin Tablet, 600 MG, orally, 120, TAKE 2 TABLETS BY MOUTH TWICE DAILY, BID, 30 days, Refills=1 * true * Date: Generated for Terry pittman/Tracey/Cucaitting on: 0 12/15/2024 07:16 AM EDT
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
--- OUTSIDE RECORDS SUMMARY | 2024-12-15 07:16 | XMS_ITS | Patient Health Record ---
Author Organization [facility] [place] Address [address] [place] [address] Care Team Providers Care Horse Racetrack Manager Name Role Phone Josh Talavera Primary Care Provider Jv De Santiago [phone] Allergies No Known Allergies Results Component Value [...] 58 UNITS EVERY EVENING for 80 Active FreeStyle Abdon 2 Sensor - USE DIRECTED AND CHANGE SENSOR EVERY 2 WEEKS for 28 Active Allopurinol 100 MG TAKE 1 TABLET [...] - historic Unknown 12/30/2020 Administered Flu, Fluad (9524-3632) (59745) 65 yrs+, single-dose syringe IM Intramuscular 04/15/2022 Administered Flu, Fluad (1433-2825) (43307) 65 yrs+, single-dose syringe IM Intramuscular 04/24/2023 Administered Flu, Fluad (80330) 65 yrs and older, single-dose syringe IM [...] Problem Status W/U Status Risk Notes Problem 87689552 Essential (prima ry) hypertension (I10) Active confirmed Problem 528235424 Gastro-esophagea l reflux disease without esophagitis (K21.9) Active confirmed Problem 686142911 Type 2 diabetes mellitus with diabetic chronic kidney disease (E11.22) Active confirmed Problem 52254198 Type 2 diabetes mellitus with hypoglycemia without coma (E11.649) Active confirmed Problem 051229051 Morbid (severe) obesity due to excess calories (E66.01) Active confirmed Problem 63637095 Other chronic pa in (G89.29) Active confirmed Problem 348105737 Chronic diastoli c (congestive) heart failure (I50.32) Active confirmed Problem Dilatation of aorta (72997262) Thoracic aortic ectasia (I77.810) Active confirmed Problem Chronic respiratory failure (85650811) Chronic respiratory failure with hypoxia (J96.11) Active confirmed Problem Chronic respiratory failure (83859473) Chronic respiratory failure with hypercapnia (J96.12) Active confirmed Problem 813548994 MCFP (curre nt) use of insulin (Z79.4) Active confirmed Problem Hypertension (38227426) Hypertension (I10) Active confirmed Problem Sleep apnea (17685871) Sleep apnea (G47.30) Active confirmed Problem 57782107 IMAN (obstructive sleep apnea) (G47.33) Active confirmed Problem Neuropathy (593436984) Neuropathy (G62.9) Active confirmed Problem Diabetes mellitus type 2 (disorder) (33733065) DM2 (diabetes mellitus, type 2) (E11.9) Active confirmed Problem 848924920 Diabetic polyneuropathy associated with type 2 diabetes mellitus (E11.42) Active confirmed Problem 796576739 Lumbar spondylos is (M47.816) Active confirmed Problem Extreme obesity with alveolar hypoventilation (506709157) Obesity hypoventilation syndrome (E66.2) Active confirmed Problem 47077870303229240 Dupuytren's contracture of both hands (M72.0) Active confirmed Problem 076516773 Chronic gout wit hout tophus, unspecified cause, unspecified site (M1A.9XX0) Active confirmed Problem 608652715 Pure hypercholesterolemia (E78.00) Active confirmed Problem 925725611 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, bilateral (E11.3553) Active confirmed Problem 396024233 Chronic kidney disease, stage 3a (N18.31) Active confirmed Problem Chronic kidney disease stage 3B (disorder) (526240957) Chronic kidney disease, stage 3b (N18.32) Active confirmed Problem 455399413 Body mass index [BMI] 40.0-44.9, adult (Z68.41) Active confirmed Vital Signs Heart Rate 55 /min 08/18/2024 Temperature 97.0 degrees Fahrenheit 08/18/2024 Respiratory Rate 18 /min 08/18/2024 Oximetry 95 % 08/18/2024 Blood pressure diastolic 69 mm Hg 08/18/2024 Height 69 in 08/18/2024 Blood pressure systolic 138 mm Hg 08/18/2024 Weight 299.0 lbs 08/18/2024 BMI 44.15 kg/m2 08/18/2024 Encounters Encounter Location Date Provider Diagnosis [facility] [address] [place] [address] 06/24/2024 Josh Talavera Type 2 diabetes onel [...] index [BMI] 45.0-49.9, adult Z68.42 [facility] [address] [place] [address] 08/18/2024 Jv De Santiago IMAN (obstructive sle ep apnea) G47.33 ; Obesity hypoventilation syndrome E66.2 ; Chronic respiratory failure with hypoxia J96.11 ; Chronic respiratory failure with hypercapnia J96.12 and Morbid (severe) obesity due to excess calories E66.01 [facility] [address] [place] [address] 04/08/2024 Josh Talavera Encounter for immuni zation Z23 [facility] [address] [place] [address] 04/08/2024 Josh Talavera Hypertension I10 [facility] [address] [place] [address] 04/22/2024 Josh Talavera Chronic gout without tophus, unspecified cause, unspecified site M1A.9XX0 [facility] [address] [place] [address] 07/15/2024 Josh Talavera [facility] [address] [place] [address] 08/16/2024 Jv De Santiago [facility] [address] [place] [address] 10/11/2024 Josh Talavera Type 2 diabetes onel itus with diabetic chronic kidney disease E11.22 Assessments Encounter Date Diagnosis (ICD Code) Assessment Notes Treatment Notes Treatment Clinical Notes Section Notes 08/18/2024 IMAN (obstructive sle ep apnea) (ICD-10 - G47.33) Dsdi-hy-hhok encounter performed with the patient to document continued need for PAP therapy. -DME: MISSY -PS12/12/2015; Initial AHI: 55 -Last PAP titration 07/14/2019: BiPAP @ 14/24xhU9T -Compliance was reviewed from 07/19/2024 - 08/17/2024 [...] bedtime and with any naps. -Note: This vjxd-lu-tust visit comes with my authorization that the patient's DME may request to renew, reorder, and/or replace tubing, supplies, mask, and/or PAP device (if applicable). 08/18/2024 Obesity hypoventilat ion syndrome (ICD-10 - E66.2) Treated with BiPAP. Complinance is great as above. 04/08/2024 Encounter for immunization (ICD-10 - Z23) [...] and urine microalbumin controlled rtc 6 months 08/18/2024 Chronic respiratory failure with hypoxia (ICD-10 - J96.11) Zyil-ml-mjga encounter performed with the patient to document [...] AHI 0.6. No evidence of acute hypercapnia. 06/24/2024 Chronic gout without tophus, unspecified cause, unspecified site (ICD-10 - M1A.9XX0) monitor uric acid - goal <6 diet stable 06/24/2024 Encounter for screen ing for malignant neoplasm of prostate (ICD-10 - Z12.5) 08/18/2024 Morbid (severe) obes ity due to excess calories (ICD-10 - E66.01) Patient's weight is inducing a restrictive pulmonary physiology. Weight loss indicated: Decrease calories, increase activity. 06/24/2024 Chronic kidney disea se, stage 3a (ICD-10 - N18.31) farxiga 5mg daily samples given - call if tolerating and we will do a rx monitor bmp neph if worsens stable 06/24/2024 Morbid (severe) obes ity due to excess calories (ICD-10 - E66.01) diet/exercise 06/24/2024 Body mass index [BMI ] 45.0-49.9, adult (ICD-10 - Z68.42) Plan Of Treatment Pending Test Test Name [...] Name:Josh pittman, 12/23/2024 09:00:00 AM, [address] [place], [address], Provider Name:Jv De Santiago, 08/16/2025 10:00:00 AM, [address] [place], [address], Insurance Providers Payer Name Payer Address Payer Phone Subscriber Number Group Number Insured Name Patient Relationship to Insured Coverage Start Date Coverage End Date [facility] MEDICARE ADVANTAGE [address] [address] [place] [address] [id number] Nicholas Dumont Self - patient is the insured 10/10/202 2 Medical (General) History Medical History History [...] hypoventilation syndrome E66.2 Surgical History Surgery Date(Month/Year) shoulder joint surgery 2006 colonoscopy-rec every 10 years+polyp carpal tunnel surgery 2001 removal of tonsils- as a child knee replacement 2013 colonoscopy-diverticulosis 04/06/2008 catheterization of right heart 06/2019 knee arthroscopy/surgery-L knee meniscus repair skin full graft sclp/arm/leg-L rodrigo 1992 sinus surgery procedure 1998 eye surgery 2017 cariac catheterization 12/06/2015 Hospitalization History Reason Date(Month/Year) R tibia fx - 09/2023
--- OUTSIDE RECORDS SUMMARY | 2024-12-15 07:16 | XMS_ITS | Encounter Summary ---
Author Organization [facility] Address [address] [place] [address] Care Team Providers Care Supervisor Insulation Name Role Phone Josh Talavera DO Primary Care Provider Encounter Details Date Type Department Care Team (Late st Contact Info) Description 12/01/2024 Telephone [facility] at [facility] [address] [place] [address] Izabella Putnam MA Social History Tobacco Use Types Packs/Day Years Used Date Smoking Tobacco: Never Smokeless Tobacco: Never Alcohol Use Standard Drinks/Week Comments Not Currently 0 (1 standard drink = 0.6 oz pur e alcohol) PHQ-2 Answer Date Recorded Patient Health Questionnaire-2 Score 0 12/30/2022 [place] Safety & Environment Answer Date Rec orded Fear of Current or Ex-Partner Not on file Emotionally Abused Not on file 08/28/2023 Physically Abused Not on file 08/28/2023 Sexually Abused Not on file 08/28/2023 Physically or Sexually Abused Not on file Sex and Gender Information Value Date Recorded Sex Assigned at Not on file Legal Sex Male 10:07 PM EDT Gender Identity Not on file Sexual Orientation Not on file documented as of this encounter Miscellaneous Notes * Telephone Encounter - Izabella Putnam MA - 12/01/2024 9:52 AM EDT Images from the original note were not included. Regarding echo result from 11/24/2024: Rachele Whelan, SALESPERSON FLOOR COVERINGS Izabella Putnam MA His ECHO shows evidence of fluid overload. Please have him double his lasix, 40mg BID with follow up BMP/BNP in 1 week. Thanks! Spoke with patient and he's currently taking lasix 40mg once daily. He will start taking it twice daily per Aminata, and have labs drawn in 1 week. Patient verbalized understanding. Orders faxed to [facility]. documented in this encounter Plan of Treatment Scheduled Orders Name Type Priority Associated Diagnoses Orde r Schedule Basic metabolic panel Lab Routine Acute combined systolic and diastolic heart failure (CMS/HCC) Expected: 12/01/2024 (Approximate), Expires: 12/01/2025 B-type natriuretic peptide Lab Routine Acute combined systolic and diastolic heart failure (CMS/HCC) Expected: 12/01/2024 (Approximate), Expires: 12/01/2025 documented as of this encounter Visit Diagnoses Diagnosis Acute combined systolic and diastolic heart failure (CMS/HCC) Acute combined systolic and diastolic heart failure documented in this encounter Care Teams Supervisor Insulation Relationship Specialty Start Date End Date Josh Talavera DO [address] [place] [address] PCP - General 05/29/22 documented as of this encounter
--- OUTSIDE RECORDS SUMMARY | 2024-12-15 07:16 | XMS_ITS | Referral Summary ---
Author Organization [facility] Address [address] [place] [address] Care Team Providers Care Materials Planning Analyst Name Role Phone Josh Talavera Primary Care Provider [phone] Encounters Date Type Department Care Team Description 12/01/2024 Telephone [facility] [place] [address] [place] [address] Izabella Putnam MA from Last 3 Months Allergies No known active allergies Medications allopurinol (Zyloprim) 100 mg tablet Take 1 tablet by mouth in the morning. 03/28/20 21 Active aspirin 81 mg EC tablet Take [...] TWICE DAILY Active amLODIPine (Norvasc) 10 mg tabletIndications: Benign hypertensive heart disease with heart failure (CMS/HCC) Take 1 tablet (10 mg) by mouth in the morning. 90 tablet 3 06/16/20 24 Active atorvastatin (Lipitor) 80 mg tabletIndications: Mixed hyperlipidemia Take 1 tablet (80 mg) by mouth at bedtime. 90 tablet 3 06/16/20 24 Active furosemide (Lasix) 40 mg tabletIndications: Benign hypertensive heart disease with heart failure (CMS/HCC) Take 1 tablet (40 mg) by mouth in the morning. 90 tablet 3 06/16/20 24 Active hydrALAZINE (Apresoline) 100 mg tabletIndications: Benign hypertensive heart disease with heart failure (CMS/HCC) Take 1 tablet (100 mg) by mouth two times daily. 180 tablet 3 06/16/20 24 Active losartan (Cozaar) 50 mg tabletIndications: Benign hypertensive heart disease with heart failure (CMS/HCC) Take 1 tablet (50 mg) by mouth once daily as directed. 90 tablet 3 06/16/20 24 Active metoprolol tartrate (Lopressor) 50 mg tabletIndications: Benign hypertensive heart disease with heart failure (CMS/HCC) Take 1 tablet (50 mg) by mouth in the morning and at bedtime. 180 tablet 3 06/16/20 24 Active furosemide (Lasix) 40 mg tabletIndications: Acute combined systolic and diastolic heart failure (CMS/HCC) Take 1 tablet (40 mg) by mouth two times daily. 180 tablet 3 12/02/19 25 026 Active Active Problems Problem Noted Date Diagnosed [...] Recorded Patient Health Questionnaire-2 Score 0 12/30/2022 [place] Safety & Environment Answer Date Rec orded [...] No: Do not add to previous draw us Sea Voss MD LAB BLOOD ORDERABLES Final Re sult LAB CONVERSIONS from Last 3 Months or Most Recently Relevant to Health Maintenance Insurance [facility] MEDICARE ADVANTAGE Care Teams Materials Planning Analyst Relationship Specialty Start Date End Date Josh Talavera DO [address] [place] [address] PCP - General 05/29/22
--- OUTSIDE RECORDS SUMMARY | 2024-12-15 07:16 | XMS_ITS | CCD ---
Author Organization [facility] Care Team Providers Care Hairspring Ii Inspector Name Role Phone Sea Voss Admitting Unavailable Sea Voss Attending Unavailable JOSH PRO Primary Care Unavailable CRIS HERRING Referring Unavailable [place] Procedure Practitioner Unavailab REEMA Moreira ABD Surgeon Unavailable [place] Procedure Practitioner Unavailab CYNTHIA Moreno Surgeon Unavailable [place] Procedure Practitioner Unavailab Sea Espinoza Surgeon Unavailable Josh Pro MD Primary Care Provider JOSH PRO Primary Care Unavailable LATOYA MOYER Attending Unavailable PRO, DR JOSH Osorio Primary Care Unavailable PRO, DR JOSH Osorio Admitting Unavailable PRO, DR JOSH Osorio Attending Unavailable PRO, DR JOSH Osorio Consulting Unavailable PRO, DR JOHS Osorio Primary Care Unavailable MOUKARBEL, DR LAZARO [...] Date of Onset Reaction(s) Facility (1 source) 51212,00; Translations: [Unknown] Propensity to adverse reactions (disorder) 9 [facility] Repository Medications Current Medications Medication Drug Class(es) [...] injectable suspension (14 sources) Insulin insulin NPH-insu corw regular (HumuLIN 70/30) (70-30) 100 UNIT/ML injection [...] week. Patient verbalized understanding. Orders faxed to [facility]. [facility] Office Visiton 06-16-2024 Follow-up visit [id number] Mackenzie Dumont 1955 M Date Provider Department Center 06/16/2024 MICH MOREJON JERICHO [facility] Family History Problem Relation Age of Onset Coronary artery disease Brother Other Brother Family Status - Relation Status Age at Brother Level of Service:29634 [place] OFFICE/OUTPATIENT ESTABLISHED LOW MDM 20 MIN Reason for Visit and Comments: Coronary Artery Disease [187] Congestive Heart Failure [127] Hypertension [283675] Normal [facility] LIPID PROFILEon 04-08-2022 CHOL-HDL RATIO NORM SEE BELOW Normal [facility] Comment on above: Result Comment: 3.3 - 4.4 LOW RISK 4.4 - 7.1 AVERAGE RISK 7.1 - 11.0 MODERATE RISK >11.0 HIGH RISK Performed By: #### U SHILA, LIPID, CMP #### [facility] [address] [address] [address] Constantin Yepez Cholesterol [Mass/Vol] 127 mg/dL Normal <=200 [facility] Comment on above: Performed By: #### U SHILA, LIPID, CMP #### [facility] [address] [address] [address] Constantin Yepez Cholesterol in HDL [Mass/Vol] 39 mg/dL Critically low 40-60 [facility] Comment on above: Performed By: #### U SHILA, LIPID, CMP #### [facility] [address] [address] [address] Constantin Yepez Cholesterol in LDL [Mass/Vol] 65.0 mg/dL Normal [facility] Comment on above: Performed By: #### U SHILA, LIPID, CMP #### [facility] [address] [address] [address] Constantin Yepez Cholesterol.total/Chol esterol in HDL [Mass ratio] 3.3 {ratio} Normal [facility] Comment on above: Performed By: #### U SHILA, LIPID, CMP #### [facility] [address] [address] [address] Constantin Yepez HDL NORMAL > or = 60 mg/dl - LOW CARDIOVASCULAR RISK <40 mg/dl - HIGH CARDIOVASCULAR RISK Normal [facility] Comment on above: Performed By: #### U SHILA, LIPID, CMP #### [facility] [address] [place] [address] Dr. Constantin Yepez LDL CALC NORMAL SEE BELOW Normal [facility] Comment on above: Result Comment: <100 mg/dl OPTIMAL 100 - 129 mg/dl NEAR OR ABOVE OPTIMAL 130 - 159 mg/dl BORDERLINE HIGH 160 - 189 mg/dl HIGH >190 mg/dl VERY HIGH Performed By: #### U SHILA, LIPID, CMP #### [facility] [address] [address] [address] Constantin Yepez Triglyceride [Mass/Vol] 115 mg/dL Normal <=150 [facility] Comment on above: Performed By: #### U SHILA, LIPID, CMP #### [facility] [address] [address] [address] Constantin Yepez VLDL CALC 23.0 mg/dL Normal [facility] Comment on above: Performed By: #### U SHILA, LIPID, CMP #### [facility] [address] [address] [address] Constantin Yepez PROF 14(COMP METB)on 022 Albumin [Mass/Vol] 3.4 g/dL Normal 3.4-5.0 [facility] Comment on above: Performed By: #### U SHILA, LIPID, CMP #### [facility] [address] [address] [address] Constantin Yepez Albumin/Globulin [Mass ratio] 1.0 {ratio} Normal [facility] Comment on above: Performed By: #### U SHILA, LIPID, CMP #### [facility] [address] [address] [address] Constantin Yepez ALP [Catalytic activity/Vol] 66 U/L Normal 46-116 [facility] Comment on above: Performed By: #### U SHILA, LIPID, CMP #### [facility] [address] [address] [address] Constantin Yepez ALT [Catalytic activity/Vol] 28 U/L Normal 16-63 [facility] Comment on above: Performed By: #### U SHILA, LIPID, CMP #### [facility] [address] [address] [address] Constantin Yepez Anion gap [Moles/Vol] 11.6 mmol/L Normal [facility] Comment on above: Performed By: #### U SHILA, LIPID, CMP #### [facility] [address] [address] [address] Constantin Yepez AST [Catalytic activity/Vol] 13 U/L Critically low 15-37 [facility] Comment on above: Performed By: #### U SHILA, LIPID, CMP #### [facility] [address] [address] [address] Constantin Yepez Bilirubin [Mass/Vol] 0.5 mg/dL Normal 0.2-1.0 [facility] Comment on above: Performed By: #### U SHILA, LIPID, CMP #### [facility] [address] [address] [address] Constantin Yepez Calcium [Mass/Vol] 8.6 mg/dL Normal 8.5-10.1 [facility] Comment on above: Performed By: #### U SHILA, LIPID, CMP #### [facility] [address] [address] [address] Constantin Yepez Chloride [Moles/Vol] 108 mmol/L Critically high 98-107 [facility] Comment on above: Performed By: #### U SHILA, LIPID, CMP #### [facility] [address] [address] [address] Constantin Yepez CO2 [Moles/Vol] 30.0 mmol/L Normal 21.0-32.0 [facility] Comment on above: Performed By: #### U SHILA, LIPID, CMP #### [facility] [address] [address] [address] Constantin Yepez Creatinine [Mass/Vol] 1.39 mg/dL Critically high 0.70-1.30 [facility] Comment on above: Performed By: #### U SHILA, LIPID, CMP #### [facility] [address] [place] [address] Dr. Constantin Yepez EGFR-AF BAHRAINI >60 Normal >=60 [facility] Comment on above: Performed By: #### U SHILA, LIPID, CMP #### [facility] [address] [place] [address] Dr. Constantin Yepez EGFR-NON AF BAHRAINI 51 mL/min/1.73m2 Critically low >=60 [facility] Comment on above: Performed By: #### U SHILA, LIPID, CMP #### [facility] [address] [address] [address] Constantin Yepez Globulin (S) [Mass/Vol] 3.5 g/dL Normal [facility] Comment on above: Performed By: #### U SHILA, LIPID, CMP #### [facility] [address] [address] [address] Constantin Yepez Glucose [Mass/Vol] 77 mg/dL Normal 74-106 [facility] Comment on above: Performed By: #### U SHILA, LIPID, CMP #### [facility] [address] [place] [address] Dr. Constantin Yepez Potassium [Moles/Vol] 3.6 mmol/L Normal 3.5-5.1 [facility] Comment on above: Performed By: #### U SHILA, LIPID, CMP #### [facility] [address] [place] [address] Dr. Constantin Yepez Protein [Mass/Vol] 6.9 g/dL Normal 6.4-8.2 [facility] Comment on above: Performed By: #### U SHILA, LIPID, CMP #### [facility] [address] [place] [address] Dr. Constantin Yepez Sodium [Moles/Vol] 146 mmol/L Critically high 136-145 [facility] Comment on above: Performed By: #### U SHILA, LIPID, CMP #### [facility] [address] [place] [address] Dr. Constantin Yepez Urea nitrogen [Mass/Vol] 24.0 mg/dL Critically high 7.0-18.0 [facility] Comment on above: Performed By: #### U SHILA, LIPID, CMP #### [facility] [address] [place] [address] Dr. Constantin Yepez Urea nitrogen/Creatinine [Mass ratio] 17.3 mg/mg Normal [facility] Comment on above: Performed By: #### U SHILA, LIPID, CMP #### [facility] [address] [address] [address] Constantin Yepez URIC ACID SERUMon 04-08-2022 Urate [Mass/Vol] 6.3 mg/dL Normal 3.5-7.2 [facility] Comment on above: Performed By: #### U SHILA, LIPID, CMP #### [facility] [address] [address] [address] Constantin Yepez PROF CHEM 8 (BAS METB)on Anion gap [Moles/Vol] 7.6 mmol/L Normal [facility] Comment on above: Performed By: #### B MP #### [facility] [address] [address] [address] Constantin Yepez Calcium [Mass/Vol] 8.3 mg/dL Critically low 8.5-10.1 [facility] Comment on above: Performed By: #### B MP #### [facility] [address] [address] [address] Constantin Yepez Chloride [Moles/Vol] 107 mmol/L Normal 98-107 [facility] Comment on above: Performed By: #### B MP #### [facility] [address] [address] [address] Constantin Yepez CO2 [Moles/Vol] 31.9 mmol/L Normal 21.0-32.0 [facility] Comment on above: Performed By: #### B MP #### [facility] [address] [address] [address] Constantin Yepez Creatinine [Mass/Vol] 1.62 mg/dL Critically high 0.70-1.30 [facility] Comment on above: Performed By: #### B MP #### [facility] [address] [address] [address] Constantin Yepez EGFR-AF BAHRAINI 52 mL/min/1.73m2 Critically low >=60 [facility] Comment on above: Performed By: #### B MP #### [facility] [address] [address] [address] Constantin Yepez EGFR-NON AF BAHRAINI 43 mL/min/1.73m2 Critically low >=60 [facility] Comment on above: Performed By: #### B MP #### [facility] [address] [address] [address] Constantin Yepez Glucose [Mass/Vol] 97 mg/dL Normal 74-106 [facility] Comment on above: Performed By: #### B MP #### [facility] [address] [address] [address] Constantin Yepez Potassium [Moles/Vol] 4.5 mmol/L Normal 3.5-5.1 [facility] Comment on above: Performed By: #### B MP #### [facility] [address] [address] [address] Constantin Yepez Sodium [Moles/Vol] 142 mmol/L Normal 136-145 [facility] Comment on above: Performed By: #### B MP #### [facility] [address] [address] [address] Constantin Yepez Urea nitrogen [Mass/Vol] 30.0 mg/dL Critically high 7.0-18.0 [facility] Comment on above: Performed By: #### B MP #### [facility] [address] [address] [address] Constantin Yepez Urea nitrogen/Creatinine [Mass ratio] 18.5 mg/mg Normal [facility] Comment on above: Performed By: #### B MP #### [facility] [address] [address] [address] Constantin Yepez Arterial Blood Gaseson 06-04 Cr Test PASS Normal [facility] Comment on above: Performed By: #### A BG #### [facility] [address] [place] [address] Clinical Law Professor: Stevan Kerns MD Body Temp. 37.[address] [facility] Comment on above: Performed By: #### A BG #### [facility] [address] [place] [address] Clinical Law Professor: Stevan Kerns MD HCO3 (Bld) [Moles/Vol] 29.7 mmol/L High 22-26 [facility] Comment on above: Performed By: #### A BG #### [facility] [address] [place] [address] Clinical Law Professor: Stevan Kerns MD O2 Device/Flow/% O2 Mask Normal [facility] Comment on above: Performed By: #### A BG #### [facility] [address] [place] [address] Clinical Law Professor: Stevan Kerns MD Oxygen (Bld) [Partial pressure] 87.4 mm[Hg] Normal 80-100 [facility] Comment on above: Performed By: #### A BG #### [facility] [address] [place] [address] Clinical Law Professor: Stevan Kerns MD Oxygen saturation in Blood 96.1 % Normal 95-98 [facility] Comment on above: Performed By: #### A BG #### [facility] [address] [place] [address] Clinical Law Professor: Setvan Kerns MD pCO2 55.2 mmHg High 35-45 [facility] Comment on above: Performed By: #### A BG #### [facility] [address] [place] [address] Clinical Law Professor: Stevan Kerns MD pH (Bld) 7.348 [pH] Low 7.35-7.45 [facility] Comment on above: Performed By: #### A BG #### [facility] [address] [place], [place] [id number] Clinical Law Professor: Stevan Kerns MD Positive Base Excess 2.6 mmol/L High 0.0-2.0 [facility] Comment on above: Performed By: #### A BG #### [facility] [address] [place] [address] Clinical Law Professor: Stevan Kerns MD Pt. Position SUPINE [facility] Comment on above: Performed By: #### A BG #### [facility] [address] [place], [place] [id number] Clinical Law Professor: Stevan Kerns MD Site Drawn Left Brachial Artery Normal [facility] Comment on above: Performed By: #### A BG #### [facility] [address] [place], [place] [id number] Clinical Law Professor: Stevan Kerns MD Carboxy Hgb NOT REPORTED Normal 0-5 [facility] Comment on above: Performed By: #### A BG #### [facility] [address] [place] [address] Clinical Law Professor: Stevan eKrns MD FIO2 NOT REPORTED Normal [facility] Comment on above: Performed By: #### A BG #### [facility] [address] [place], [place] [id number] Clinical Law Professor: Stevan Kerns MD Methemoglobin NOT REPORTED Normal 0.0-1.9 [facility] Comment on above: Performed By: #### A BG #### [facility] [address] [place] [address] [place] [place], [place] [id number] Clinical Law Professor: Stevan Kerns MD Mode NOT REPORTED Normal [facility] Comment on above: Performed By: #### A BG #### [facility] [address] [place], [place] [id number] Clinical Law Professor: Stevan Kerns MD Negative Base Excess NOT REPORTED Normal 0.0-2.0 [facility] Comment on above: Performed By: #### A BG #### [facility] [address] [place] [address] Clinical Law Professor: Stevan Kerns MD Notification Time NOT REPORTED Normal [facility] Comment on above: Performed By: #### A BG #### [facility] [address] [place] [address] Clinical Law Professor: Stevan Kerns MD Notification: NOT REPORTED Normal [facility] Comment on above: Performed By: #### A BG #### [facility] [address] [place] [address] [place] [address] Clinical Law Professor: Stevan Kerns MD Oxyhemoglobin NOT REPORTED Normal 95.0-98.0 [facility] Comment on above: Performed By: #### A BG #### [facility] [address] [place], [place] [id number] Clinical Law Professor: Stevan Kerns MD pCO2 Adj'd for Temp NOT REPORTED Normal [facility] Comment on above: Performed By: #### A BG #### [facility] [address] [place] [address] [place] [address] Clinical Law Professor: Stevan Kerns MD PEEP/CPAP NOT REPORTED Normal [facility] Comment on above: Performed By: #### A BG #### [facility] [address] [place] [address] [place] [address] Clinical Law Professor: Stevan Kerns MD pH Adjst'd for Temp. NOT REPORTED Normal 7.350-7.450 [facility] Comment on above: Performed By: #### A BG #### [facility] [address] [place] [address] [place] [address] Clinical Law Professor: Stevan Kerns MD pO2 Adjst'd for Temp NOT REPORTED Normal 80.0-100.0 [facility] Comment on above: Performed By: #### A BG #### [facility] [address] [place] [address] Dr[address] [place], [place] [id number] Clinical Law Professor: Stevan Kerns MD PSV NOT REPORTED Normal [facility] Comment on above: Performed By: #### A BG #### [facility] [address] [place] [address] Dr[address] [place], [place] [id number] Clinical Law Professor: Stevan Kerns MD Respiratory Rate NOT REPORTED Normal [facility] Comment on above: Performed By: #### A BG #### [facility] [address] [place], [place] [id number] Clinical Law Professor: Stevan Kerns MD Set Rate NOT REPORTED Normal [facility] Comment on above: Performed By: #### A BG #### [facility] [address] [place], [place] [id number] Clinical Law Professor: Stevan Kerns MD Text for Respiratory NOT REPORTED Normal [facility] Comment on above: Performed By: #### A BG #### [facility] [address] [place], [place] [id number] Clinical Law Professor: Stevan Kerns MD Total Hb NOT REPORTED Normal 12.0-16.0 [facility] Comment on above: Performed By: #### A BG #### [facility] [address] [place], [place] [id number] Clinical Law Professor: Stevan Kerns MD Total Rate NOT REPORTED Normal [facility] Comment on above: Performed By: #### A BG #### [facility] [address] [place], [place] [id number] Clinical Law Professor: Stevan Kerns MD [place] NOT REPORTED Normal [facility] Comment on above: Performed By: #### A BG #### [facility] [address] [place], [place] [id number] Clinical Law Professor: Stevan Kerns MD Blood Gas, Arterialon 2020 Cr Test PASS [facility] Carboxyhemoglobin NOT REPORTED 0 - 5 % [facility] Comment on above: FIO2 NOT REPORTED [facility] HCO3 (Bld) [Moles/Vol] 29.7 mmol/L High 22 - 26 mmol/L [facility] Interpretation and review of laboratory results Abnormal [facility] Methemoglobin NOT REPORTED 0.0 - 1.9 % [facility] alth Mode NOT REPORTED [facility] Negative Base Excess, Art NOT REPORTED 0.0 - 2.0 mmol/L [facility] NOTIFICATION NOT REPORTED [facility] th NOTIFICATION TIME NOT REPORTED [facility] O2 Device/Flow/% O2 Mask [facility] alth Oxygen saturation in Blood 96.1 % 95 - 98 % [facility] Oxyhemoglobin NOT REPORTED 95.0 - 98.0 % [facility] pCO2, Art, Temp Adj NOT REPORTED [facility] pCO2, Arterial 55.[address] [facility] th Peep/Cpap NOT REPORTED [facility] pH, Art, Temp Adj NOT REPORTED [facility] pH, Arterial 7.348 Low [facility] pO2, Art, Temp Adj NOT REPORTED [facility] pO2, Arterial 87.4 [facility] h Positive Base Excess, Art 2.6 mmol/L High 0.0 - 2.0 mmol/L [facility] PSV NOT REPORTED [facility] Pt Temp 37.0 [facility] Pt. Position SUPINE [facility] Respiratory Rate NOT REPORTED [facility] Sample Site Left Brachial Artery [facility] Set Rate NOT REPORTED [facility] Text for Respiratory NOT REPORTED [facility] Total Hb NOT REPORTED 12.0 - 16.0 g/dl [facility] Total Rate NOT REPORTED [facility] [place] NOT REPORTED [facility] CBC Auto Differentialon 05-08 Absolute Eos # 0.[address] [facility] th Absolute Immature Granulocyte 0.06 [facility] Absolute Lymph # 3.98 High [facility] alth Absolute [place]ison # 1.22 High [facility] lth Basophils (Bld) [#/Vol] 0.05 10*3/uL [facility] Basophils/100 WBC (Bld) 0 % 0 - 2 % [facility] Differential Type NOT REPORTED [facility] Eosinophils/100 WBC (Bld) 1 % 1 - 4 % [facility] Hematocrit (Bld) [Volume fraction] 45.3 % 40.7 - 50.3 % [facility] Hemoglobin.gastrointes tinal spec 1 Ql (Stl) 14.7 g/dL 13.0 - 17.0 g/dL [facility] Immature granulocytes/100 WBC (Bld) 0 % 0 [facility] Interpretation and review of laboratory results Abnormal [facility] Lymphocytes/100 WBC (Bld) 25 % 24 - 43 % [facility] MCH (RBC) [Entitic mass] 29.5 pg 25.2 - 33.5 pg [facility] MCHC (RBC) [Mass/Vol] 32.5 g/dL 28.4 - 34.8 g/dL [facility] MCV (RBC) [Entitic vol] 91.0 fL 82.6 - 102.9 fL [facility] Monocytes/100 WBC (Bld) 8 % 3 - 12 % [facility] NRBC Automated 0.0 0.0 per 100 WBC [facility] Platelet distribution width (Bld) [Ratio] 12.6 % 11.8 - 14.4 % [facility] Platelet Estimate NOT REPORTED [facility] Platelet mean volume (Bld) [Entitic vol] 9.3 fL 8.1 - 13.5 fL [facility] Platelets (Bld) [#/Vol] 195 10*3/uL [facility] RBC (Bld) [#/Vol] 4.98 10*6/uL 4.21 - 5.7 7 m/uL [facility] RBC (Bld) [#/Vol] NOT REPORTED [facility] Segmented neutrophils/100 WBC (Bld) 66 % High 36 - 65 % [facility] Segs Absolute 10.[address] [facility] W[facility] (Bld) [#/Vol] 16.2 10*3/uL High [facility] WBC (Bld) [#/Vol] NOT REPORTED [facility] CBC with Diffon 06-04-2021 Abs. Basophil 0.05 k/uL Normal 0.00-0.20 [facility] Comment on above: Performed By: #### C MPX, TROPI, PT, CDP, MG #### [address] [place], [place] [id number] Clinical Law Professor: Stevan Kerns MD Abs.Imm.Granulocyte 0.06 k/uL Normal 0.00-0.30 [facility] Comment on above: Performed By: #### C MPX, TROPI, PT, CDP, MG #### [facility] [address] [place], [place] [id number] Clinical Law Professor: Stevan Kerns MD Abs.Neutrophil (Seg) 10.73 k/uL High 1.50-8.10 [facility] Comment on above: Performed By: #### C MPX, TROPI, PT, CDP, MG #### [facility] [address] [place], [facility] Clinical Law Professor: Stevan Kerns MD Basophils/100 WBC (Bld) 0 % Normal 0-2 [facility] Comment on above: Performed By: #### C MPX, TROPI, PT, CDP, MG #### [facility] [address] [place], [facility] Clinical Law Professor: Stevan Kerns MD Eosinophils (Bld) [#/Vol] 0.20 10*3/uL Normal 0.00-0.44 [facility] Comment on above: Performed By: #### C MPX, TROPI, PT, CDP, MG #### [address] [place], [place] [address] Clinical Law Professor: Stevan Kerns MD Eosinophils/100 WBC (Bld) 1 % Normal 1-4 [facility] Comment on above: Performed By: #### C MPX, TROPI, PT, CDP, MG #### [address] [place], [facility] Clinical Law Professor: Stevan Kerns MD Erythrocyte distribution width (RBC) [Ratio] 12.6 % Normal 11.8-14.4 [facility] Comment on above: Performed By: #### C MPX, TROPI, PT, CDP, MG #### [address] [place], [facility] Clinical Law Professor: Stevan Kerns MD Hematocrit (Bld) [Volume fraction] 45.3 % Normal 40.7-50.3 [facility] Comment on above: Performed By: #### C MPX, TROPI, PT, CDP, MG #### [address] [place], [facility] Clinical Law Professor: Stevan Kerns MD Hemoglobin (Bld) [Mass/Vol] 14.7 g/dL Normal 13.0-17.0 [facility] Comment on above: Performed By: #### C MPX, TROPI, PT, CDP, MG #### [facility] [address] [place], [place] [id number] Clinical Law Professor: Stevan Kerns MD Immature granulocytes/100 WBC (Bld) 0 % Normal 0 [facility] Comment on above: Performed By: #### C MPX, TROPI, PT, CDP, MG #### [facility] [address] [place], [facility] Clinical Law Professor: Stevan Kerns MD Lymphocytes (Bld) [#/Vol] 3.98 10*3/uL High 1.10-3.70 [facility] Comment on above: Performed By: #### C MPX, TROPI, PT, CDP, MG #### [address] [place], [facility]83 Clinical Law Professor: Stevan Kerns MD Lymphocytes/100 WBC (Bld) 25 % Normal 24-43 [facility] Comment on above: Performed By: #### C MPX, TROPI, PT, CDP, MG #### [address] [place], [facility]83 Clinical Law Professor: Stevan Kerns MD MCH (RBC) [Entitic mass] 29.5 pg Normal 25.2-33.5 [facility] Comment on above: Performed By: #### C MPX, TROPI, PT, CDP, MG #### [address] [place], [facility] Clinical Law Professor: Stevan Kerns MD MCHC (RBC) [Mass/Vol] 32.5 g/dL Normal 28.4-34.8 [facility] Comment on above: Performed By: #### C MPX, TROPI, PT, CDP, MG #### [address] [place] [address] Clinical Law Professor: Stevan Kerns MD MCV (RBC) [Entitic vol] 91.0 fL Normal 82.6-102.9 [facility] Comment on above: Performed By: #### C MPX, TROPI, PT, CDP, MG #### [facility] [address] [place] [address] Clinical Law Professor: Stevan Kerns MD Monocytes (Bld) [#/Vol] 1.22 10*3/uL High 0.10-1.20 [facility] Comment on above: Performed By: #### C MPX, TROPI, PT, CDP, MG #### [facility] [address] [place], [place] [id number] Clinical Law Professor: Stevan Kerns MD Monocytes/100 WBC (Bld) 8 % Normal 3-12 [facility] Comment on above: Performed By: #### C MPX, TROPI, PT, CDP, MG #### [address] [place], [facility]83 Clinical Law Professor: Stevan Kerns MD Neutrophil (Seg) 66 % High 36-65 [facility] Comment on above: Performed By: #### C MPX, TROPI, PT, CDP, MG #### [address] [place], [place] [id number] Clinical Law Professor: Stevan Kerns MD NRBC Automated 0.0 per 100 WBC Normal 0.0 [facility] Comment on above: Performed By: #### C MPX, TROPI, PT, CDP, MG #### [address] [place], [place] [id number] Clinical Law Professor: Stevan Kerns MD Platelet mean volume (Bld) [Entitic vol] 9.3 fL Normal 8.1-13.5 [facility] Comment on above: Performed By: #### C MPX, TROPI, PT, CDP, MG #### [facility] [address] [place] [address] Clinical Law Professor: Stevan Kerns MD Platelets (Bld) [#/Vol] 195 10*3/uL Normal 138-453 [facility] Comment on above: Performed By: #### C MPX, TROPI, PT, CDP, MG #### [facility] [address] [place] [address] Dr. [place], [place] [id number] Clinical Law Professor: Stevan Kerns MD RBC (Bld) [#/Vol] 4.98 10*6/uL Normal 4.21-5.77 [facility] Comment on above: Performed By: #### C MPX, TROPI, PT, CDP, MG #### [facility] [address] [place], [place] [id number] Clinical Law Professor: Stevan Kerns MD WBC (Bld) [#/Vol] 16.2 10*3/uL High 3.5-11.3 [facility] Comment on above: Performed By: #### C MPX, TROPI, PT, CDP, MG #### [address] [place], [place] [id number] Clinical Law Professor: Stevan Kerns MD Auto Diff Performed NOT REPORTED Normal [facility] Comment on above: Performed By: #### C MPX, TROPI, PT, CDP, MG #### [address] [place], [place] [id number] Clinical Law Professor: Stevan Kerns MD Platelet Comment NOT REPORTED Normal [facility] Comment on above: Performed By: #### C MPX, TROPI, PT, CDP, MG #### [address] [place], [place] [id number] Clinical Law Professor: Stevan Kerns MD RBC morphology finding Nom (d) NOT REPORTED Normal [facility] Comment on above: Performed By: #### C MPX, TROPI, PT, CDP, MG #### [address] [place] [address] Clinical Law Professor: Stevan Kerns MD WBC Morphology NOT REPORTED Normal [facility] Comment on above: Performed By: #### C MPX, TROPI, PT, CDP, MG #### [facility] [address] [place] [address] Clinical Law Professor: Stevan Kerns MD Comp Metabolic Pr/rfx MGon 1 08-04-2020 AST [Catalytic activity/Vol] 28 U/L Normal <40 [facility] Comment on above: Performed By: #### C MPX, TROPI, PT, CDP, MG #### [facility] [address] [place] [address] Clinical Law Professor: Stevan Kerns MD Glucose [Mass/Vol] 19 mg/dL Critically low 70-99 [facility] Comment on above: Performed By: #### C MPX, TROPI, PT, CDP, MG #### [address] [place] [address] Clinical Law Professor: Stevan Kerns MD Potassium [Moles/Vol] 3.4 mmol/L Low 3.7-5.3 [facility] Comment on above: Performed By: #### C MPX, TROPI, PT, CDP, MG #### [address] [place] [address] Clinical Law Professor: Stevan Kerns MD (cont.) [facility] Comment on above: Result Comment: Aver age GFR for 60-69 years old: 85 mL/min/1.73sq m Chronic Kidney Disease: <60 mL/min/1.73sq m Kidney failure: <15 mL/min/1.73sq m eGFR calculated using average adult body mass. Additional eGFR calculator available at: http://www.[employer]ella[employer].com/multiple_crcl_2012.htm Performed By: #### C MPX, TROPI, PT, CDP, MG #### [facility] [address] [place] [address] Clinical Law Professor: Stevan Kerns MD Albumin [Mass/Vol] 4.5 g/dL Normal 3.5-5.2 [facility] Comment on above: Performed By: #### C MPX, TROPI, PT, CDP, MG #### [facility] [address] [place] [address] Clinical Law Professor: Stevan Kerns MD Albumin/Glob Ratio 1.2 Normal 1.0-2.5 [facility] Comment on above: Performed By: #### C MPX, TROPI, PT, CDP, MG #### [facility] [address] [place], [place] [id number] Clinical Law Professor: Stevan Kerns MD Alkaline Phos 98 U/L Normal 40-129 [facility] Comment on above: Performed By: #### C MPX, TROPI, PT, CDP, MG #### [facility] [address] [place], [place] [id number] Clinical Law Professor: Stevan Kerns MD ALT [Catalytic activity/Vol] 31 U/L Normal 5-41 [facility] Comment on above: Performed By: #### C MPX, TROPI, PT, CDP, MG #### [facility] [address] [place] [address] Clinical Law Professor: Stevan Kerns MD Anion gap [Moles/Vol] 13 mmol/L Normal 9-17 [facility] Comment on above: Performed By: #### C MPX, TROPI, PT, CDP, MG #### [facility] [address] [place], [place] [id number] Clinical Law Professor: Stevan Kerns MD Bilirubin [Mass/Vol] 0.36 mg/dL Normal 0.3-1.2 [facility] Comment on above: Performed By: #### C MPX, TROPI, PT, CDP, MG #### [facility] [address] [place] [address] Clinical Law Professor: Stevan Kerns MD BUN/CRE Ratio 19 Normal 9-20 [facility] Comment on above: Performed By: #### C MPX, TROPI, PT, CDP, MG #### [facility] [address] [place] [address] Clinical Law Professor: Stevan Kerns MD Calcium [Mass/Vol] 9.4 mg/dL Normal 8.6-10.4 [facility] Comment on above: Performed By: #### C MPX, TROPI, PT, CDP, MG #### [facility] [address] [place], [facility] Clinical Law Professor: Stevan Kerns MD Chloride [Moles/Vol] 105 mmol/L Normal 98-107 [facility] Comment on above: Performed By: #### C MPX, TROPI, PT, CDP, MG #### [address] [place] [address] Clinical Law Professor: Stevan Kerns MD CO2 [Moles/Vol] 27 mmol/L Normal 20-31 [facility] Comment on above: Performed By: #### C MPX, TROPI, PT, CDP, MG #### [address] [place] [address] Clinical Law Professor: Stevan Kerns MD Creatinine [Mass/Vol] 1.78 mg/dL High 0.70-1.20 [facility] Comment on above: Performed By: #### C MPX, TROPI, PT, CDP, MG #### [facility] [address] [place] [address] Clinical Law Professor: Stevan Kerns MD GFR, Amer 47 mL/min Low >60 [facility] Comment on above: Performed By: #### C MPX, TROPI, PT, CDP, MG #### [facility] [address] [place] [address] Clinical Law Professor: Stevan Kerns MD GFR,non Amer 38 mL/min Low >60 [facility] Comment on above: Performed By: #### C MPX, TROPI, PT, CDP, MG #### [facility] [address] [place] [address] Clinical Law Professor: Stevan Kerns MD Protein [Mass/Vol] 8.3 g/dL Normal 6.4-8.3 [facility] Comment on above: Performed By: #### C MPX, TROPI, PT, CDP, MG #### [facility] [address] [place] [address] Clinical Law Professor: Stevan Kerns MD Sodium [Moles/Vol] 145 mmol/L High 135-144 [facility] Comment on above: Performed By: #### C MPX, TROPI, PT, CDP, MG #### [facility] [address] [place] [address] Clinical Law Professor: Stevan Kerns MD Staging: Normal [facility] Comment on above: Result Comment: Stag e 1: Some kidney damage normal GFR Stage 2: Mild kidney damage GFR 60-89 Stage 3: Moderate kidney damage GFR 30-59 Stage 4: Severe kidney damage GFR 15-29 Stage 5: Severe kidney damage GFR <15 ESRD - chronic treatment by dialysis or transplant Performed By: #### C MPX, TROPI, PT, CDP, MG #### [address] [place] [address] Clinical Law Professor: Stevan Kerns MD Urea nitrogen [Mass/Vol] 34 mg/dL High 8-23 [facility] Comment on above: Performed By: #### C MPX, TROPI, PT, CDP, MG #### [facility] [address] [place] [address] Clinical Law Professor: Stevan Kerns MD Comprehensive Metabolic Pane l w/ Reflex to MG 06-04-2021 Albumin [Mass/Vol] 4.5 g/dL 3.5 - 5.2 g/dL [facility] Albumin/Globulin [Mass ratio] 1.2 {ratio} [facility] ALP (Bld) [Catalytic activity/Vol] 98 U/L 40 - 129 U/L [facility] ALT [Catalytic activity/Vol] 31 U/L 5 - 41 U/L [facility] Anion gap [Moles/Vol] 13 mmol/L 9 - 17 mmol/L [facility] AST [Catalytic activity/Vol] 28 U/L <40 [facility] Bilirubin [Mass/Vol] 0.36 mg/dL 0.3 - 1 .2 mg/dL [facility] Calcium [Mass/Vol] 9.4 mg/dL 8.6 - 10. 4 mg/dL [facility] Chloride [Moles/Vol] 105 mmol/L 98 - 10 7 mmol/L [facility] CO2 [Moles/Vol] 27 mmol/L 20 - 31 mmol/L [facility] Creatinine [Mass/Vol] 1.78 mg/dL High 0.70 - 1.20 mg/dL [facility] Free PSA/Total PSA [Mass fraction] 8.3 g/dL 6.4 - 8.3 g/dL [facility] GFR 47 mL/min Low >60 [facility] GFR Non- 38 mL/min Low >60 [facility] Glucose [Mass/Vol] 19 mg/dL Critically low 70 - 99 mg/dL [facility] Interpretation and review of laboratory results Abnormal [facility] Potassium [Moles/Vol] 3.4 mmol/L Low 3.7 - 5.3 mmol/L [facility] Sodium [Moles/Vol] 145 mmol/L High 135 - 144 mmol/L [facility] Urea nitrogen (BldV) [Mass/Vol] 34 mg/dL High 8 - 23 mg/dL [facility] Urea nitrogen/Creatinine (Bld) [Mass ratio] 19 [facility] Glucose, Whole Bloodon 06-04 Glucose [Mass/Vol] 125 mg/dL High 74 - 100 mg/dL [facility] Interpretation and review of laboratory results Abnormal [facility] Glucose [Mass/Vol] 134 mg/dL High 74 - 100 mg/dL [facility] Interpretation and review of laboratory results Abnormal [facility] Glucose [Mass/Vol] 97 mg/dL 74 - 100 mg/dL [facility] Glucose [Mass/Vol] 60 mg/dL Low 74 - 100 mg/dL [facility] Interpretation and review of laboratory results Abnormal [facility] Glucose [Mass/Vol] 93 mg/dL 74 - 100 mg/dL [facility] Laboratory - Chemistry and C hemistry - challengeon 06-04-2021 GFR/1.73 sq M.predicted MDRD (S/P/Bld) [Vol rate/Area] [facility] Comment on above: Average GFR for 60-6 9 years old: 85 mL/min/1.73sq m Chronic Kidney Disease: <60 mL/min/1.73sq m Kidney failure: <15 mL/min/1.73sq m eGFR calculated using average adult body mass. Additional eGFR calculator available at: http://www.[employer]/multiple_crcl_2012.htm Stage 1: Some kidney damage normal GFR Stage 2: Mild kidney damage GFR 60-89 Stage 3: Moderate kidney damage GFR 30-59 Stage 4: Severe kidney damage GFR 15-29 Stage 5: Severe kidney damage GFR <15 ESRD - chronic treatment by dialysis or transplant Lactic Acidon 06-04-2021 Lactate [Moles/Vol] 1.0 mmol/L Normal 0.5-2.2 [facility] Comment on above: Performed By: #### L AC #### [facility] [address] [place] [address] Clinical Law Professor: Stevan Kerns MD Lactate [Moles/Vol] 1 mmol/L 0.5 - 2. 2 mmol/L [facility] Magnesiumon 06-04-2021 Magnesium [Mass/Vol] 1.8 mg/dL Normal 1.6-2.6 [facility] Comment on above: Performed By: #### C MPX, TROPI, PT, CDP, MG #### [facility] [address] [place] [address] Clinical Law Professor: Stevan Kerns MD Magnesium [Mass/Vol] 1.8 mg/dL 1.6 - 2 .6 mg/dL [facility] Microscopic Urinalysison - [facility] Amorphous, UA NOT REPORTED None [facility] lth Bacteria, UA NOT REPORTED None [facility] th Casts UA NOT REPORTED /LPF [facility] Crystals, UA NOT REPORTED None /HPF [facility] th Epithelial Cells UA 0 TO 2 [facility] Mucus, UA NOT REPORTED None [facility] Other Observations UA NOT REPORTED NOT REQ. [facility] RBC, UA 0 TO 2 [facility] Renal Epithelial, UA NOT REPORTED 0 /HPF [facility] Trichomonas, UA NOT REPORTED None [facility] ealt WBC, UA 0 TO 2 [facility] Yeast, UA NOT REPORTED None [facility] POCT glucoseOrdered By: Alesha Gonzalez on 06-04-2021 Glucose [Mass/Vol] 60 mg/dL [facility] Interpretation and review of laboratory results Normal [facility] PTon 06-04-2021 INR Coag (PPP) [Relative time] 0.9 {INR} Normal [facility] Comment on above: Result Comment: Non-therapeutic Range: INR = 0.9-1.2 Therapeutic Range: Moderate Anticoagulant Intensity: INR = 2.0-3.0 High Anticoagulant Intensity: INR = 2.5-3.5 Performed By: #### C MPX, TROPI, PT, CDP, MG #### [facility] [address] [place] [address] Clinical Law Professor: Stevan Kerns MD PT Coag (PPP) [Time] 12.4 s Normal 11.5-14.2 [facility] Comment on above: Performed By: #### C MPX, TROPI, PT, CDP, MG #### [facility] [address] [place] [address] Clinical Law Professor: Stevan Kerns MD Protime-INRon 06-04-2021 INR Coag (Bld) [Relative time] 0.9 {INR} [facility] Comment on above: Non-therapeutic Range: INR = 0.9-1.2 Therapeutic Range: Moderate Anticoagulant Intensity: INR = 2.0-3.0 High Anticoagulant Intensity: INR = 2.5-3.5 PT Coag (PPP) [Time] 12.4 s [facility] Troponinon 06-04-2021 Troponin, High Sens 13 ng/L Normal 0-22 [facility] Comment on above: Result Comment: High Sensitivity Troponin values cannot be compared with other Troponin methodologies. Patients with high levels of Biotin oral intake (i.e >5mg/day) may have falsely decreased Troponin levels. Samples collected within 8 hours of biotin intake may require additional information for diagnosis. Performed By: #### C MPX, TROPI, PT, CDP, MG #### [facility] [address] [place], [place] [id number] Clinical Law Professor: Stevan Kerns MD Troponin Interp. NOT REPORTED Normal [facility] Comment on above: Performed By: #### C MPX, TROPI, PT, CDP, MG #### [facility] [address] [place], [place] [id number] Clinical Law Professor: Stevan Kerns MD Troponin T NOT REPORTED Normal <0.03 [facility] Comment on above: Performed By: #### C MPX, TROPI, PT, CDP, MG #### [facility] [address] [place] [address] [place] [address] Clinical Law Professor: Stevan Kerns MD Troponin Interp NOT REPORTED [facility] Troponin, High Sensitivity 13 ng/L 0 - 22 ng/L [facility] Comment on above: High Sensitivity Troponin values cannot be compared with other Troponin methodologies. Patients with high levels of Biotin oral intake (i.e >5mg/day) may have falsely decreased Troponin levels. Samples collected within 8 hours of biotin intake may require additional information for diagnosis. [facility] Urinalysis, Routineon 2020 Bilirubin, SemiQt,Ur Negative Normal NEG [facility] Comment on above: Performed By: #### U MICAO, UA #### [facility] [address] [place] [address] [place] [address] Clinical Law Professor: Stevan Kerns MD Blood, Urine 1+ Abnormal NEG [facility] Comment on above: Performed By: #### U MICAO, UA #### [facility] [address] [place] [address] Clinical Law Professor: Stevan Kerns MD Clarity (U) Clear Normal CLEAR [facility] Comment on above: Performed By: #### U MICAO, UA #### [facility] [address] [place] [address] Dr. [place], [place] [id number] Clinical Law Professor: Stevan Kerns MD Color (U) Yellow Normal YEL [facility] Comment on above: Performed By: #### U MICAO, UA #### [facility] [address] [place] [address] Dr. [place], [place] [id number] Clinical Law Professor: Stevan Kerns MD Glucose Ql (U) Negative Normal NEG [facility] in [facility] Comment on above: Performed By: #### U MICAO, UA #### [address] [place], [place] [phone] Clinical Law Professor: Stevan Kerns MD Ketones Ql (U) Negative Normal NEG [facility] Comment on above: Performed By: #### U MICAO, UA #### [facility] [address] [place] [address] Dr. [place], [place] [id number] Clinical Law Professor: Stevan Kerns MD Leukocyte esterase Test strip Ql (U) Negative Normal NEG [facility] Comment on above: Performed By: #### U MICAO, UA #### [address] [place], [place] [id number] Clinical Law Professor: Stevan Kerns MD Nitrite,Ur Negative Normal NEG [facility] Comment on above: Performed By: #### U MICAO, UA #### [facility] [address] [place] [address] Dr. [place], [place] [id number] Clinical Law Professor: Stevan Kerns MD PH,Ur 5.5 Normal 5.0-9.0 [facility] Comment on above: Performed By: #### U MICAO, UA #### [facility] [address] [place], [place] [id number] Clinical Law Professor: Stevan Kerns MD Protein Ql (U) 2+ Abnormal NEG [facility] Comment on above: Performed By: #### U MICAO, UA #### [facility] [address] [place], [place] [id number] Clinical Law Professor: Stevan Kerns MD Spec. [place],Ur >1.030 High 1.010-1.020 [facility] Comment on above: Performed By: #### U MICAO, UA #### [facility] [address] [place], [facility] Clinical Law Professor: Stevan Kerns MD Urobilinogen,Ur Normal Normal NORM [facility] Comment on above: Performed By: #### U MICAO, UA #### [facility] [address] [place], [place] [id number] Clinical Law Professor: Stevan Kerns MD Comment NOT REPORTED Normal [facility] Comment on above: Performed By: #### U MICAO, UA #### [facility] [address] [place], [facility] Clinical Law Professor: Stevan Kerns MD Urinalysis, reflex to micros copicon 06-04-2021 Bilirubin Urine Negative NEGATIVE [facility] lth Color, UA Yellow Yellow [facility] Glucose, Ur Negative NEGATIVE [facility] Interpretation and review of laboratory results Abnormal [facility] Ketones Ql (U) Negative NEGATIVE [facility] Leukocyte esterase Test strip Ql (U) Negative NEGATIVE [facility] Nitrite, Urine Negative NEGATIVE [facility] pH, UA 5.5 [facility] Protein, UA 2+ Abnormal NEGATIVE [facility] Specific [place], UA >1.030 High [facility] Turbidity UA Clear Clear [facility] Urinalysis Comments NOT REPORTED [facility] Urine Hgb 1+ Abnormal NEGATIVE [facility] Urobilinogen, Urine Normal Normal [facility] Urinalysis,Microon 1 ----- Normal [facility] Comment on above: Performed By: #### U MICAO, UA #### [facility] [address] [place] [address] Clinical Law Professor: Stevan Kerns MD Epithelial cells LM Ql (Urine sed) 0 TO 2 Normal 0-5 [facility] Comment on above: Performed By: #### U MICAO, UA #### [facility] [address] [place] [address] [place] [address] Clinical Law Professor: Stevan Kerns MD Urine RBC's 0 TO 2 Normal 0-2 [facility] Comment on above: Performed By: #### U MICAO, UA #### [facility] [address] [place], [place] [id number] Clinical Law Professor: Stevan Kerns MD Urine WBC's 0 TO 2 Normal 0-5 [facility] Comment on above: Performed By: #### U MICAO, UA #### [address] [place], [place] [phone] Clinical Law Professor: Stevan Kerns MD Amorphous sediment LM Ql (Urine sed) NOT REPORTED Normal [facility] Comment on above: Performed By: #### U MICAO, UA #### [address] [place], [facility] Clinical Law Professor: Stevan Kerns MD Bacteria NOT REPORTED Normal [facility] Comment on above: Performed By: #### U MICAO, UA #### [address] [place], [place] [phone] Clinical Law Professor: Stevan Kerns MD Casts NOT REPORTED Normal [facility] Comment on above: Performed By: #### U MICAO, UA #### [facility] [address] [place] [address] [place] [address] Clinical Law Professor: Stevan Kerns MD Crystals LM Nom (Urine sed) NOT REPORTED Normal [facility] Comment on above: Performed By: #### U MICAO, UA #### [address] [place], [place] [phone] Clinical Law Professor: Stevan Kerns MD Epithelial, Renal NOT REPORTED Normal 0 [facility] Comment on above: Performed By: #### U MICAO, UA #### [facility] [address] [place], [place] [id number] Clinical Law Professor: Stevan Kerns MD Mucus Strands NOT REPORTED Normal [facility] Comment on above: Performed By: #### U MICAO, UA #### [facility] [address] [place], [place] [phone] Clinical Law Professor: Stevan Kerns MD Other Observations NOT REPORTED Normal NREQ [facility] Comment on above: Performed By: #### U MICAO, UA #### [facility] [address] [place], [place] [phone] Clinical Law Professor: Stevan Kerns MD Trichomonas NOT REPORTED Normal [facility] Comment on above: Performed By: #### U MICAO, UA #### [facility] [address] [place], [place] [phone] Clinical Law Professor: Stevan Kerns MD Yeast NOT REPORTED Normal [facility] Comment on above: Performed By: #### U MICAO, UA #### [facility] [address] [place] [address] Clinical Law Professor: Stevan Kerns MD ARTERIAL BLOOD GAS W/COOXon 06-15-2019 BASE EXCESS 15 mmol/L High -2-3 [facility] Comment on above: Order Comment: No: D o not add to previous draw Performed By: #### 4 [id number], [id number], [id number], [id number] #### [facility] [address] [place] [address], [place] COHB 2.5 % High 0.0-1.5 [facility] Comment on above: Order Comment: No: D o not add to previous draw Performed By: #### 4 1000, 16469, 63687, 83341 #### [facility] [address] [place] [address], [place] DELIVERY SYSTEMS RA Normal The [facility] Comment on above: Order Comment: No: D o not add to previous draw Performed By: #### 4 1000, 14115, 84066, 37505 #### [facility] [address] [place] [address], [place] HCO3 (Bld) [Moles/Vol] 42 mmol/L Critically high 21-28 The [facility] Comment on above: Order Comment: No: D o not add to previous draw Performed By: #### 4 1000, 13813, 54742, 54251 #### [facility] [address] [place] [address], [place] METHB 1.2 % Normal 0.0-1.5 [facility] Comment on above: Order Comment: No: D o not add to previous draw Performed By: #### 4 1000, 85563, 27596, 90615 #### [facility] [address] [place] [address], [place] MODALITY RA Normal [facility] Comment on above: Order Comment: No: D o not add to previous draw Performed By: #### 4 1000, 57372, 41669, 73031 #### [facility] [address] [place] [address], [place] Oxygen (Bld) [Partial pressure] 49 mm[Hg] Critically low 83-108 [facility] Comment on above: Order Comment: No: D o not add to previous draw Performed By: #### 4 1000, 86515, 10600, 77104 #### [facility] [address] [place] [address], [place] Oxygen saturation in Blood 87.3 % Critically low 94.0-97.0 [facility] Comment on above: Order Comment: No: D o not add to previous draw Performed By: #### 4 1000, 33737, 98900, 42803 #### [facility] [address] [place] [address], [place] PCO2 60 mmHg Critically high 35-45 The [facility] Comment on above: Order Comment: No: D o not add to previous draw Performed By: #### 4 1000, 05130, 04249, 13034 #### [facility] [address] [place] [address], [facility] pH (Bld) 7.45 [pH] Normal 7.35-7.45 [facility] Comment on above: Order Comment: No: D o not add to previous draw Performed By: #### 4 1000, 94118, 96601, 82202 #### [facility] [address] [place] [address], [facility] THB 14.2 g/dL Normal 12.0-16.3 [facility] Comment on above: Order Comment: No: D o not add to previous draw Performed By: #### 4 1000, 01036, 46218, 57885 #### [facility] [address] [place] [address], [facility] BASIC METABOLIC PANELon 12-1 Calcium [Mass/Vol] 9.0 mg/dL Normal 8.6-10.3 [facility] Comment on above: Order Comment: No: D o not add to previous draw Performed By: #### 4 1000, 25259, 57477, 61488 #### [facility] [address] [place] [address], [facility] Chloride [Moles/Vol] 93 mmol/L Low 98-107 [facility] Comment on above: Order Comment: No: D o not add to previous draw Performed By: #### 4 1000, 13209, 97767, 04657 #### [facility] [address] [place] [address], [place] CO2 [Moles/Vol] 36 mmol/L High 21-31 The [facility] Comment on above: Order Comment: No: D o not add to previous draw Performed By: #### 4 1000, 71230, 78242, 51487 #### [facility] [address] [place] [address], [place] Creatinine [Mass/Vol] 1.30 mg/dL Normal 0.70-1.30 [facility] Comment on above: Order Comment: No: D o not add to previous draw Performed By: #### 4 1000, 68208, 66353, 31982 #### [facility] [address] [place] [address], [place] GFR/1.73 sq M predicted among blacks MDRD (S/P/Bld) [Vol rate/Area] mL/min/{1.73_m2} Normal >60 [facility] Comment on above: Order Comment: No: D o not add to previous draw Performed By: #### 4 1000, 52211, 08908, 55997 #### [facility] [address] [place] [address], [place] GFR/1.73 sq M predicted among non-blacks MDRD (S/P/Bld) [Vol rate/Area] 56 ml/min/1.73sq m Abnormal >60 [facility] Comment on above: Order Comment: No: D o not add to previous draw Performed By: #### 4 999, 88190, 93172, 72003 #### [facility] [address] [place] [address], [place] Glucose [Mass/Vol] 147 mg/dL High 70-100 [facility] Comment on above: Order Comment: No: D o not add to previous draw Performed By: #### 4 1000, 78770, 62978, 15018 #### [facility] [address] [place] [address], [place] Potassium [Moles/Vol] 4.2 mmol/L Normal 3.5-5.1 [facility] Comment on above: Order Comment: No: D o not add to previous draw Performed By: #### 4 1000, 15245, 19238, 25084 #### [facility] [address] [place] [address], [place] Sodium [Moles/Vol] 136 mmol/L Normal 136-145 [facility] Comment on above: Order Comment: No: D o not add to previous draw Performed By: #### 4 1000, 46732, 51807, 05222 #### [facility] [address] [place] [address], [place] Urea nitrogen [Mass/Vol] 31 mg/dL High 7-25 [facility] Comment on above: Order Comment: No: D o not add to previous draw Performed By: #### 4 1000, 09761, 88521, 55568 #### [facility] [address] [place] [address], [place] MAGNESIUM BLOODon 06-15-2019 Magnesium [Mass/Vol] 2.0 mg/dL Normal 1.9-2.7 [facility] Comment on above: Order Comment: No: D o not add to previous draw Performed By: #### 4 1000, 11646, 41075, 81056 #### [facility] [address] [place] [address], [place] POC GLUCOSE LABon 06-15-2019 Glucose [Mass/Vol] 156 mg/dL High 70-100 [facility] Comment on above: Performed By: #### 4 1000, 59023, 06940, 95327 #### [facility] [address] [place] [address], [place] Glucose [Mass/Vol] 220 mg/dL High 70-100 [facility] Comment on above: Performed By: #### 4 1000, 22727, 08034, 28658 #### [facility] [address] [place] [address], [place] Glucose [Mass/Vol] 138 mg/dL High 70-100 [facility] Comment on above: Performed By: #### 4 1000, 54864, 22036, 26895 #### [facility] [address] [place] [address], [place] BASIC METABOLIC PANELon 12-0 Calcium [Mass/Vol] 8.9 mg/dL Normal 8.6-10.3 [facility] Comment on above: Order Comment: No: D o not add to previous draw Performed By: #### 4 1000, 07541, 60541, 70961 #### [facility] [address] [place] [address], [place] Chloride [Moles/Vol] 95 mmol/L Low 98-107 [facility] Comment on above: Order Comment: No: D o not add to previous draw Performed By: #### 4 1000, 02494, 72891, 97249 #### [facility] [address] [place] [address], [place] CO2 [Moles/Vol] 35 mmol/L High 21-31 [facility] Comment on above: Order Comment: No: D o not add to previous draw Performed By: #### 4 1000, 50253, 37014, 33619 #### [facility] [address] [place] [address], [place] Creatinine [Mass/Vol] 1.35 mg/dL High 0.70-1.30 [facility] Comment on above: Order Comment: No: D o not add to previous draw Performed By: #### 4 1000, 07775, 31499, 52991 #### [facility] [address] [place] [address], [place] GFR/1.73 sq M predicted among blacks MDRD (S/P/Bld) [Vol rate/Area] mL/min/{1.73_m2} Normal >60 [facility] Comment on above: Order Comment: No: D o not add to previous draw Performed By: #### 4 1000, 99832, 37550, 39771 #### [facility] [address] [place] [address], [place] GFR/1.73 sq M predicted among non-blacks MDRD (S/P/Bld) [Vol rate/Area] 53 ml/min/1.73sq m Abnormal >60 [facility] Comment on above: Order Comment: No: D o not add to previous draw Performed By: #### 4 1000, 87426, 54675, 58181 #### [facility] [address] [place] [address], [place] Glucose [Mass/Vol] 172 mg/dL High 70-100 [facility] Comment on above: Order Comment: No: D o not add to previous draw Performed By: #### 4 1000, 93130, 78006, 56787 #### [facility] [address] [place] [address], [facility] Potassium [Moles/Vol] 4.0 mmol/L Normal 3.5-5.1 [facility] Comment on above: Order Comment: No: D o not add to previous draw Performed By: #### 4 1000, 88565, 97754, 35812 #### [facility] [address] [place] [address], [place] Sodium [Moles/Vol] 139 mmol/L Normal 136-145 [facility] Comment on above: Order Comment: No: D o not add to previous draw Performed By: #### 4 1000, 83603, 53416, 47369 #### [facility] [address] [place] [address], [facility] Urea nitrogen [Mass/Vol] 30 mg/dL High 7-25 [facility] Comment on above: Order Comment: No: D o not add to previous draw Performed By: #### 4 1000, 38612, 29044, 00885 #### [facility] [address] [place] [address], [place] CBC W/DIFFon 06-14-2019 ABS BASOPHILS 0.0 10*3/uL Normal 0.0-0.2 The [facility] Comment on above: Order Comment: No: D o not add to previous draw Performed By: #### 4 1000, 92171, 05509, 50868 #### [facility] [address] [place] [address], [facility] ABS IMM GRANS 0.0 10*3/uL Normal 0.0-0.2 [facility] Comment on above: Order Comment: No: D o not add to previous draw Performed By: #### 4 1000, 91260, 96553, 25591 #### [facility] [address] [place] [address], [place] ABS NEUTROPHILS 5.7 10*3/uL Normal 1.6-7.6 The [facility] Comment on above: Order Comment: No: D o not add to previous draw Performed By: #### 4 999, 75401, 75532, 94766 #### [facility] [address] [place] [address], [facility] Basophils/100 WBC (Bld) 0.2 % Normal 0.0-1.0 [facility] Comment on above: Order Comment: No: D o not add to previous draw Performed By: #### 4 999, 60432, 85880, 55087 #### [facility] [address] [facility] [place] [address], [facility] Eosinophils (Bld) [#/Vol] 0.2 10*3/uL Normal 0.0-0.5 [facility] Comment on above: Order Comment: No: D o not add to previous draw Performed By: #### 4 999, 79442, 41594, 78712 #### [facility] [address] [facility] [place] [address], [place] Eosinophils/100 WBC (Bld) 1.8 % Normal 0.0-6.0 [facility] Comment on above: Order Comment: No: D o not add to previous draw Performed By: #### 4 1000, 02654, 13045, 27051 #### [facility] [address] [place] [address], [place] Erythrocyte distribution width (RBC) [Ratio] 13.3 % Normal 11.5-15.0 [facility] Comment on above: Order Comment: No: D o not add to previous draw Performed By: #### 4 1000, 20825, 90220, 30075 #### [facility] [address] [place] [address], [facility] Hematocrit (Bld) [Volume fraction] 44.2 % Normal 39.0-50.0 [facility] Comment on above: Order Comment: No: D o not add to previous draw Performed By: #### 4 1000, 29069, 55864, 80811 #### [facility] [address] [place] [address], [facility] Hemoglobin (Bld) [Mass/Vol] 13.8 g/dL Normal 13.0-17.0 [facility] Comment on above: Order Comment: No: D o not add to previous draw Performed By: #### 4 1000, 67484, 57203, 54532 #### [facility] [address] [place] [address], [facility] IMMATURE GRANS 0.4 % Normal 0.0-1.0 [facility] Comment on above: Order Comment: No: D o not add to previous draw Performed By: #### 4 1000, 61930, 33001, 65867 #### [facility] [address] [facility] [place] [address], [facility] Lymphocytes (Bld) [#/Vol] 1.6 10*3/uL Normal 1.2-4.0 [facility] Comment on above: Order Comment: No: D o not add to previous draw Performed By: #### 4 1000, 37845, 25552, 94401 #### [facility] [address] [place] [address], [place] Lymphocytes/100 WBC (Bld) 19.6 % Low 20.0-45.0 [facility] Comment on above: Order Comment: No: D o not add to previous draw Performed By: #### 4 1000, 57985, 81841, 99835 #### [facility] [address] [place] [address], [facility] MCH (RBC) [Entitic mass] 29.1 pg Normal 27.0-33.0 [facility] Comment on above: Order Comment: No: D o not add to previous draw Performed By: #### 4 1000, 65619, 46949, 59364 #### [facility] [address] [place] [address], [facility] MCHC (RBC) [Mass/Vol] 31.2 g/dL Low 32.0-35.0 [facility] Comment on above: Order Comment: No: D o not add to previous draw Performed By: #### 4 1000, 91870, 53138, 38074 #### [facility] [address] [place] [address], [facility] MCV (RBC) [Entitic vol] 93.2 fL Normal 82.0-98.0 [facility] Comment on above: Order Comment: No: D o not add to previous draw Performed By: #### 4 1000, 27110, 66064, 33621 #### [facility] [address] [facility] [place] [address], [facility] Monocytes (Bld) [#/Vol] 0.6 10*3/uL Normal 0.1-1.0 [facility] Comment on above: Order Comment: No: D o not add to previous draw Performed By: #### 4 999, 88606, 10507, 40591 #### [facility] [address] [place] [address], [place] MONOS 7.7 % Normal 5.0-12.0 [facility] Comment on above: Order Comment: No: D o not add to previous draw Performed By: #### 4 1000, 16648, 23772, 26271 #### [facility] [address] [place] [address], [place] Neutrophils/100 WBC (Bld) 70.3 % Normal 40.0-72.0 [facility] Comment on above: Order Comment: No: D o not add to previous draw Performed By: #### 4 1000, 04333, 21820, 43070 #### [facility] [address] [place] [address], [facility] Nucleated RBC/100 WBC (Bld) [Ratio] 0 % Normal 0-0 [facility] Comment on above: Order Comment: No: D o not add to previous draw Performed By: #### 4 1000, 01330, 17539, 46094 #### [facility] [address] [place] [address], [facility] PLAT CNT 157 10*3/uL Normal 150-400 [facility] Comment on above: Order Comment: No: D o not add to previous draw Performed By: #### 4 1000, 35943, 41587, 54247 #### [facility] [address] [facility] [place] [address], [facility] RBC (Bld) [#/Vol] 4.74 10*6/uL Normal 4.20-5.70 The [facility] Comment on above: Order Comment: No: D o not add to previous draw Performed By: #### 4 1000, 63741, 87237, 93821 #### [facility] [address] [place] [address], [facility] WBC (Bld) [#/Vol] 8.16 10*3/uL Normal 4.00-10.60 The [facility] Comment on above: Order Comment: No: D o not add to previous draw Performed By: #### 4 1000, 13816, 73877, 62401 #### [facility] [address] [facility] [place] [address], [facility] Cardiovascular Lab Reporton 06-14-2019 Cardiovascular Lab Report [facility] Patient Name: [facility] Mackenzie Doherty MR #: [id number] Department of Physician: Reema Olivarez MD Division of Service Date: 06/14/2019 Cardiology Birthdate: 1955 Adult Cardiovascular Room #: [id number] [facility] [address] [place] [address] Cardiovascular Laboratory Report EDUCATION ADMINISTRATOR: Dr. Carolyn Montero, template fitter. INDICATIONS: This is a 63-year-old man with [...] The patient was also notified that a template fitter will be assisting during the course of [...] internal jugular vein. Then, we inserted a 6-[place] x 11 cm glide sheath and advanced [...] elevated wedge pressure at 17 mmHg and [id number] elevation in his right-sided pressures. His RA [...] Olivarez MD Date Trans: 06/14/2019 01:05 P/mmo [id number] cc: Josh Pro D.O. [id number] [place] [id number] Normal [facility] MAGNESIUM BLOODon 06-14-2019 Magnesium [Mass/Vol] 2.0 mg/dL Normal 1.9-2.7 [facility] Comment on above: Order Comment: No: D o not add to previous draw Performed By: #### 4 999, 76837, 19604, 43933 #### [facility] [address] [facility] [place] [address], [place] POC GLUCOSE LABon 06-14-2019 Glucose [Mass/Vol] 305 mg/dL High 70-100 [facility] Comment on above: Performed By: #### 4 1000, 27194, 21556, 07034 #### [facility] [address] [place] [address], [place] Glucose [Mass/Vol] 299 mg/dL High 70-100 [facility] Comment on above: Performed By: #### 4 1000, 47439, 26784, 08630 #### [facility] [address] [place] [address], [place] Glucose [Mass/Vol] 177 mg/dL High 70-100 [facility] Comment on above: Performed By: #### 4 999, 63129, 35129, 10595 #### [facility] [address] [place] [address], [place] Glucose [Mass/Vol] 194 mg/dL High 70-100 [facility] Comment on above: Performed By: #### 4 1000, 48617, 94207, 07499 #### [facility] [address] [place] [address], [place] Glucose [Mass/Vol] 163 mg/dL High 70-100 [facility] Comment on above: Performed By: #### 4 999, 69883, 13657, 06442 #### [facility] [address] [place] [address], [place] BASIC METABOLIC PANELon 12-0 Calcium [Mass/Vol] 9.3 mg/dL Normal 8.6-10.3 [facility] Comment on above: Order Comment: No: D o not add to previous draw Performed By: #### 4 999, 63762, 51937, 12311 #### [facility] [address] [place] [address], [place] Chloride [Moles/Vol] 98 mmol/L Normal 98-107 [facility] Comment on above: Order Comment: No: D o not add to previous draw Performed By: #### 4 1000, 21313, 34393, 51822 #### [facility] [address] [place] [address], [place] CO2 [Moles/Vol] 39 mmol/L High 21-31 The [facility] Comment on above: Order Comment: No: D o not add to previous draw Performed By: #### 4 1000, 15425, 03236, 38753 #### [facility] [address] [place] [address], [place] Creatinine [Mass/Vol] 1.35 mg/dL High 0.70-1.30 [facility] Comment on above: Order Comment: No: D o not add to previous draw Performed By: #### 4 1000, 84300, 31349, 54865 #### [facility] [address] [place] [address], [place] GFR/1.73 sq M predicted among blacks MDRD (S/P/Bld) [Vol rate/Area] mL/min/{1.73_m2} Normal >60 [facility] Comment on above: Order Comment: No: D o not add to previous draw Performed By: #### 4 999, 97853, 62922, 94423 #### [facility] [address] [place] [address], [place] GFR/1.73 sq M predicted among non-blacks MDRD (S/P/Bld) [Vol rate/Area] 53 ml/min/1.73sq m Abnormal >60 [facility] Comment on above: Order Comment: No: D o not add to previous draw Performed By: #### 4 999, 37283, 01236, 94711 #### [facility] [address] [place] [address], [place] Glucose [Mass/Vol] 90 mg/dL Normal 70-100 [facility] Comment on above: Order Comment: No: D o not add to previous draw Performed By: #### 4 1000, 01582, 64323, 21784 #### [facility] [address] [place] [address], [place] Potassium [Moles/Vol] 3.8 mmol/L Normal 3.5-5.1 [facility] Comment on above: Order Comment: No: D o not add to previous draw Performed By: #### 4 1000, 96164, 02276, 44978 #### [facility] [address] [place] [address], [facility] Sodium [Moles/Vol] 143 mmol/L Normal 136-145 [facility] Comment on above: Order Comment: No: D o not add to previous draw Performed By: #### 4 1000, 92939, 64917, 53478 #### [facility] [address] [facility] Urea nitrogen [Mass/Vol] 28 mg/dL High 7-25 [facility] Comment on above: Order Comment: No: D o not add to previous draw Performed By: #### 4 1000, 30041, 07976, 12282 #### [facility] [address] [facility] CBC W/DIFFon 06-13-2019 ABS BASOPHILS 0.0 10*3/uL Normal 0.0-0.2 [facility] Comment on above: Order Comment: No: D o not add to previous draw Performed By: #### 4 999, 55860, 77655, 20262 #### [facility] [address] [facility] ABS IMM GRANS 0.0 10*3/uL Normal 0.0-0.2 [facility] Comment on above: Order Comment: No: D o not add to previous draw Performed By: #### 4 1000, 81103, 18594, 31271 #### [facility] [address] [place] [address], [facility] ABS NEUTROPHILS 5.6 10*3/uL Normal 1.6-7.6 The [facility] Comment on above: Order Comment: No: D o not add to previous draw Performed By: #### 4 1000, 05491, 79394, 79854 #### [facility] [address] [place] [address], [facility] Basophils/100 WBC (Bld) 0.2 % Normal 0.0-1.0 [facility] Comment on above: Order Comment: No: D o not add to previous draw Performed By: #### 4 1000, 05530, 46458, 78949 #### [facility] [address] [place] [address], [facility] Eosinophils (Bld) [#/Vol] 0.2 10*3/uL Normal 0.0-0.5 [facility] Comment on above: Order Comment: No: D o not add to previous draw Performed By: #### 4 1000, 91033, 15262, 18571 #### [facility] [address] [place] [address], [facility] Eosinophils/100 WBC (Bld) 2.4 % Normal 0.0-6.0 [facility] Comment on above: Order Comment: No: D o not add to previous draw Performed By: #### 4 1000, 23405, 88603, 54417 #### [facility] [address] [place] [address], [facility] Erythrocyte distribution width (RBC) [Ratio] 13.5 % Normal 11.5-15.0 [facility] Comment on above: Order Comment: No: D o not add to previous draw Performed By: #### 4 1000, 36336, 81697, 88322 #### [facility] [address] [place] [address], [facility] Hematocrit (Bld) [Volume fraction] 44.3 % Normal 39.0-50.0 [facility] Comment on above: Order Comment: No: D o not add to previous draw Performed By: #### 4 1000, 02267, 49595, 33937 #### [facility] [address] [place] [address], [facility] Hemoglobin (Bld) [Mass/Vol] 14.0 g/dL Normal 13.0-17.0 [facility] Comment on above: Order Comment: No: D o not add to previous draw Performed By: #### 4 1000, 69060, 18371, 76370 #### [facility] [address] [facility] [place] [address], [facility] IMMATURE GRANS 0.4 % Normal 0.0-1.0 [facility] Comment on above: Order Comment: No: D o not add to previous draw Performed By: #### 4 1000, 56405, 58197, 64262 #### [facility] [address] [facility] [place] [address], [facility] Lymphocytes (Bld) [#/Vol] 1.6 10*3/uL Normal 1.2-4.0 [facility] Comment on above: Order Comment: No: D o not add to previous draw Performed By: #### 4 1000, 80196, 67603, 28599 #### [facility] [address] [place] [address], [facility] Lymphocytes/100 WBC (Bld) 19.7 % Low 20.0-45.0 [facility] Comment on above: Order Comment: No: D o not add to previous draw Performed By: #### 4 1000, 15376, 76714, 94290 #### [facility] [address] [facility] [place] [address], [facility] MCH (RBC) [Entitic mass] 29.3 pg Normal 27.0-33.0 The [facility] Comment on above: Order Comment: No: D o not add to previous draw Performed By: #### 4 1000, 53971, 70023, 11769 #### [facility] [address] [facility]. [place] [id number], [facility] MCHC (RBC) [Mass/Vol] 31.6 g/dL Low 32.0-35.0 [facility] Comment on above: Order Comment: No: D o not add to previous draw Performed By: #### 4 1000, 00646, 00257, 90362 #### [facility] [address] [facility] [place] [address], [facility] MCV (RBC) [Entitic vol] 92.7 fL Normal 82.0-98.0 [facility] Comment on above: Order Comment: No: D o not add to previous draw Performed By: #### 4 1000, 42445, 53758, 89787 #### [facility] [address] [place] [address], [facility] Monocytes (Bld) [#/Vol] 0.6 10*3/uL Normal 0.1-1.0 [facility] Comment on above: Order Comment: No: D o not add to previous draw Performed By: #### 4 1000, 26698, 64356, 01890 #### [facility] [address] [facility]. [address] MONOS 7.8 % Normal 5.0-12.0 [facility] Comment on above: Order Comment: No: D o not add to previous draw Performed By: #### 4 1000, 91461, 48376, 63983 #### [facility] [address] [place] [address], [facility] Neutrophils/100 WBC (Bld) 69.5 % Normal 40.0-72.0 [facility] Comment on above: Order Comment: No: D o not add to previous draw Performed By: #### 4 1000, 13158, 49193, 83384 #### [facility] [address] [facility] [place] [address], [facility] Nucleated RBC/100 WBC (Bld) [Ratio] 0 % Normal 0-0 [facility] Comment on above: Order Comment: No: D o not add to previous draw Performed By: #### 4 1000, 27401, 51512, 12201 #### [facility] [address] [facility] [place] [address], [facility] PLAT CNT 179 10*3/uL Normal 150-400 [facility] Comment on above: Order Comment: No: D o not add to previous draw Performed By: #### 4 1000, 08185, 20423, 53371 #### [facility] [address] [place] [address], [facility] RBC (Bld) [#/Vol] 4.78 10*6/uL Normal 4.20-5.70 [facility] Comment on above: Order Comment: No: D o not add to previous draw Performed By: #### 4 1000, 25672, 53420, 46826 #### [facility] [address] [place] [address], [facility] WBC (Bld) [#/Vol] 8.04 10*3/uL Normal 4.00-10.60 [facility] Comment on above: Order Comment: No: D o not add to previous draw Performed By: #### 4 1000, 22780, 64959, 38955 #### [facility] [address] [place] [address], [facility] HEMOGLOBIN A1Con 06-13-2019 HbA1c (Bld) [Mass fraction] 8.1 % High 4.0-6.0 [facility] Comment on above: Order Comment: No: D o not add to previous draw Performed By: #### 4 1000, 84270, 82972, 91660 #### [facility] [address] [facility] [place] [address], [facility] HbA1c (Bld) [Mass fraction] 186 mg/dL High 70-126 [facility] Comment on above: Order Comment: No: D o not add to previous draw Performed By: #### 4 1000, 80452, 47938, 02818 #### [facility] [address] [place] [address], [facility] MAGNESIUM BLOODon 06-13-2019 Magnesium [Mass/Vol] 2.2 mg/dL Normal 1.9-2.7 [facility] Comment on above: Order Comment: No: D o not add to previous draw Performed By: #### 4 1000, 83315, 04159, 89024 #### [facility] [address] [place] [address], [facility] PHOSPHORUS BLOODon 9 Phosphate [Mass/Vol] 3.7 mg/dL Normal 2.5-5.0 [facility] Comment on above: Order Comment: No: D o not add to previous draw Performed By: #### 4 1000, 37763, 19508, 77454 #### [facility] [address] [place] [address], [place] POC GLUCOSE LABon 06-13-2019 Glucose [Mass/Vol] 156 mg/dL High 70-100 [facility] Comment on above: Performed By: #### 4 1000, 74621, 05017, 78762 #### [facility] [address] [place] [address], [place] Glucose [Mass/Vol] 90 mg/dL Normal 70-100 [facility] Comment on above: Performed By: #### 4 1000, 25399, 40352, 86822 #### [facility] [address] [place] [address], [place] Glucose [Mass/Vol] 220 mg/dL High 70-100 [facility] Comment on above: Performed By: #### 4 1000, 92288, 48457, 98928 #### [facility] [address] [place] [address], [facility] BASIC METABOLIC PANELon Calcium [Mass/Vol] 8.7 mg/dL Normal 8.6-10.3 [facility] Comment on above: Order Comment: If no t done in ED No: Do not add to previous draw Performed By: #### 8 5123 #### [facility] [address] [place] [address], [place] Chloride [Moles/Vol] 95 mmol/L Low 98-107 [facility] Comment on above: Order Comment: If no t done in ED No: Do not add to previous draw Performed By: #### 8 5123 #### [facility] [address] [place] [address], [place] CO2 [Moles/Vol] 36 mmol/L High 21-31 [facility] Comment on above: Order Comment: If no t done in ED No: Do not add to previous draw Performed By: #### 8 5123 #### [facility] [address] [place] [address], [place] Creatinine [Mass/Vol] 1.28 mg/dL Normal 0.70-1.30 [facility] Comment on above: Order Comment: If no t done in ED No: Do not add to previous draw Performed By: #### 8 5123 #### [facility] [address] [place] [address], [place] GFR/1.73 sq M predicted among blacks MDRD (S/P/Bld) [Vol rate/Area] mL/min/{1.73_m2} Normal >60 [facility] Comment on above: Order Comment: If no t done in ED No: Do not add to previous draw Performed By: #### 8 5123 #### [facility] [address] [place] [address], [place] GFR/1.73 sq M predicted among non-blacks MDRD (S/P/Bld) [Vol rate/Area] 57 ml/min/1.73sq m Abnormal >60 [facility] Comment on above: Order Comment: If no t done in ED No: Do not add to previous draw Performed By: #### 8 5123 #### [facility] [address] [place] [address], [place] Glucose [Mass/Vol] 83 mg/dL Normal 70-100 [facility] Comment on above: Order Comment: If no t done in ED No: Do not add to previous draw Performed By: #### 8 5123 #### [facility] [address] [place] [address], [place] Potassium [Moles/Vol] 3.7 mmol/L Normal 3.5-5.1 [facility] Comment on above: Order Comment: If no t done in ED No: Do not add to previous draw Performed By: #### 8 5123 #### [facility] [address] [place] [address], [place] Sodium [Moles/Vol] 140 mmol/L Normal 136-145 [facility] Comment on above: Order Comment: If no t done in ED No: Do not add to previous draw Performed By: #### 8 5123 #### [facility] [address] [place] [address], [place] Urea nitrogen [Mass/Vol] 30 mg/dL High 7-25 [facility] Comment on above: Order Comment: If no t done in ED No: Do not add to previous draw Performed By: #### 8 5123 #### [facility] [address] [place] [address], [facility] CBC COMPLETE BLOOD COUNTon 1 08-13-2018 Erythrocyte distribution width (RBC) [Ratio] 13.4 % Normal 11.5-15.0 [facility] Comment on above: Order Comment: If no t done in ED No: Do not add to previous draw Performed By: #### 8 5123 #### [facility] [address] [place] [address], [place] Hematocrit (Bld) [Volume fraction] 42.2 % Normal 39.0-50.0 [facility] Comment on above: Order Comment: If no t done in ED No: Do not add to previous draw Performed By: #### 8 5123 #### [facility] [address] [place] [address], [place] Hemoglobin (Bld) [Mass/Vol] 12.9 g/dL Low 13.0-17.0 [facility] Comment on above: Order Comment: If no t done in ED No: Do not add to previous draw Performed By: #### 8 5123 #### [facility] [address] MCH (RBC) [Entitic mass] 28.8 pg Normal 27.0-33.0 [facility] Comment on above: Order Comment: If no t done in ED No: Do not add to previous draw Performed By: #### 8 5123 #### [facility] [address] [place] [address], [facility] MCHC (RBC) [Mass/Vol] 30.6 g/dL Low 32.0-35.0 [facility] Comment on above: Order Comment: If no t done in ED No: Do not add to previous draw Performed By: #### 8 5123 #### [facility] [address] [place] [address], [facility] MCV (RBC) [Entitic vol] 94.2 fL Normal 82.0-98.0 [facility] Comment on above: Order Comment: If no t done in ED No: Do not add to previous draw Performed By: #### 8 5123 #### [facility] [address] [facility] Nucleated RBC/100 WBC (Bld) [Ratio] 0 % Normal 0-0 [facility] Comment on above: Order Comment: If no t done in ED No: Do not add to previous draw Performed By: #### 8 5123 #### [facility] [address] [place] [address], [facility] PLAT CNT 159 10*3/uL Normal 150-400 [facility] Comment on above: Order Comment: If no t done in ED No: Do not add to previous draw Performed By: #### 8 5123 #### [facility] [address] [place] [address], [facility] RBC (Bld) [#/Vol] 4.48 10*6/uL Normal 4.20-5.70 [facility] Comment on above: Order Comment: If no t done in ED No: Do not add to previous draw Performed By: #### 8 5123 #### [facility] [address] [place] [address], [place] WBC (Bld) [#/Vol] 8.80 10*3/uL Normal 4.00-10.60 [facility] Comment on above: Order Comment: If no t done in ED No: Do not add to previous draw Performed By: #### 8 5123 #### [facility] [address] [place] [address], [facility] MAGNESIUM BLOODon 06-12-2019 Magnesium [Mass/Vol] 1.8 mg/dL Low 1.9-2.7 [facility] Comment on above: Order Comment: If no t done in ED No: Do not add to previous draw Performed By: #### 8 5123 #### [facility] [address] [place] [address], [place] PHOSPHORUS BLOODon 9 Phosphate [Mass/Vol] 3.9 mg/dL Normal 2.5-5.0 [facility] Comment on above: Order Comment: If no t done in ED No: Do not add to previous draw Performed By: #### 8 5123 #### [facility] [address] [place] [address], [facility] POC GLUCOSE LABon 06-12-2019 Glucose [Mass/Vol] 323 mg/dL High 70-100 [facility] Comment on above: Performed By: #### 8 5123 #### [facility] [address] [place] [address], [place] Glucose [Mass/Vol] 284 mg/dL High 70-100 [facility] Comment on above: Performed By: #### 8 5123 #### [facility] [address] [place] [address], [place] Glucose [Mass/Vol] 243 mg/dL High 70-100 [facility] Comment on above: Performed By: #### 8 5123 #### [facility] [address] [place] [address], [facility] Glucose [Mass/Vol] 82 mg/dL Normal 70-100 [facility] Comment on above: Performed By: #### 8 5123 #### [facility] [address] ARTERIAL BLOOD GAS WITH ICAo n 06-11-2019 BASE EXCESS 13 mmol/L High -2-3 [facility] Comment on above: Order Comment: RESUL TS CHECKED AND CALLED. ACCURATELY READ BACK BY ARNULFO MOSER RN Performed By: #### 8 4511 #### [facility] [address] [facility]. [address] [employer] NASAL CANNULA Normal The [facility] Comment on above: Order Comment: RESUL TS CHECKED AND CALLED. ACCURATELY READ BACK BY ARNULFO MOSER RN Performed By: #### 8 4511 #### [facility] [address] [facility] [place] [address], [facility] HCO3 (Bld) [Moles/Vol] 41 mmol/L Critically high 21-28 [facility] Comment on above: Order Comment: RESUL TS CHECKED AND CALLED. ACCURATELY READ BACK BY ARNULFO MOSER RN Performed By: #### 8 4511 #### [facility] [address] [facility]. [address] IONIZED CALCIUM 1.10 mmol/L Low 1.13-1.32 The [facility] Comment on above: Order Comment: RESUL TS CHECKED AND CALLED. ACCURATELY READ BACK BY ARNULFO MOSER RN Performed By: #### 8 4511 #### [facility] [address] [place] [address], [facility] LPM 3.0 LPM Normal [facility] Comment on above: Order Comment: RESUL TS CHECKED AND CALLED. ACCURATELY READ BACK BY ARNULFO MOSER RN Performed By: #### 8 4511 #### [facility] [address] [facility]. [address] Oxygen (Bld) [Partial pressure] 63 mm[Hg] Low 83-108 [facility] Comment on above: Order Comment: RESUL TS CHECKED AND CALLED. ACCURATELY READ BACK BY ARNULFO MOSER RN Performed By: #### 8 4511 #### [facility] [address] [place] [address], [facility] Oxygen saturation in Blood 91.9 % Low 94.0-97.0 [facility] Comment on above: Order Comment: RESUL TS CHECKED AND CALLED. ACCURATELY READ BACK BY ARNULFO MOSER RN Performed By: #### 8 4511 #### [facility] [address] [place] [address], [facility] PCO2 70 mmHg Critically high 35-45 The [facility] Comment on above: Order Comment: RESUL TS CHECKED AND CALLED. ACCURATELY READ BACK BY ARNULFO MOSER RN Performed By: #### 8 4511 #### [facility] [address] pH (Bld) 7.38 [pH] Normal 7.35-7.45 [facility] Comment on above: Order Comment: RESUL TS CHECKED AND CALLED. ACCURATELY READ BACK BY ARNULFO MOSER RN Performed By: #### 8 4511 #### [facility] [address] BASIC METABOLIC PANELon 12-0 Calcium [Mass/Vol] 8.6 mg/dL Normal 8.6-10.3 [facility] Comment on above: Order Comment: No: D o not add to previous draw Performed By: #### 4 1000, 59117, 88908, 87335 #### [facility] [address] [place] [address], [facility] Chloride [Moles/Vol] 97 mmol/L Low 98-107 [facility] Comment on above: Order Comment: No: D o not add to previous draw Performed By: #### 4 1000, 07064, 59133, 30055 #### [facility] [address] [place] [address], [place] CO2 [Moles/Vol] 40 mmol/L High 21-31 [facility] Comment on above: Order Comment: No: D o not add to previous draw Performed By: #### 4 1000, 82450, 10958, 82986 #### [facility] [address] [place] [address], [place] Creatinine [Mass/Vol] 1.62 mg/dL High 0.70-1.30 [facility] Comment on above: Order Comment: No: D o not add to previous draw Performed By: #### 4 1000, 20720, 27840, 23720 #### [facility] [address] [place] [address], [place] GFR/1.73 sq M predicted among blacks MDRD (S/P/Bld) [Vol rate/Area] 52 ml/min/1.73sq m Abnormal >60 [facility] Comment on above: Order Comment: No: D o not add to previous draw Performed By: #### 4 1000, 57128, 19505, 90278 #### [facility] [address] [place] [address], [place] GFR/1.73 sq M predicted among non-blacks MDRD (S/P/Bld) [Vol rate/Area] 43 ml/min/1.73sq m Abnormal >60 [facility] Comment on above: Order Comment: No: D o not add to previous draw Performed By: #### 4 1000, 67478, 07873, 82800 #### [facility] [address] [place] [address], [place] Glucose [Mass/Vol] 82 mg/dL Normal 70-100 [facility] Comment on above: Order Comment: No: D o not add to previous draw Performed By: #### 4 1000, 00182, 33072, 60064 #### [facility] [address] [place] [address], [facility] Potassium [Moles/Vol] 4.0 mmol/L Normal 3.5-5.1 [facility] Comment on above: Order Comment: No: D o not add to previous draw Performed By: #### 4 1000, 91367, 50214, 87014 #### [facility] [address] [place] [address], [facility] Sodium [Moles/Vol] 141 mmol/L Normal 136-145 [facility] Comment on above: Order Comment: No: D o not add to previous draw Performed By: #### 4 1000, 66381, 74510, 94645 #### [facility] [address] [place] [address], [facility] Urea nitrogen [Mass/Vol] 33 mg/dL High 7-25 [facility] Comment on above: Order Comment: No: D o not add to previous draw Performed By: #### 4 1000, 33065, 07694, 25913 #### [facility] [address] [place] [address], [facility] BNP (B-TYPE NATRIURETIC PEPT TANG)on 06-11-2019 Natriuretic peptide B (Bld) [Mass/Vol] 21 pg/mL Normal 0-100 [facility] Comment on above: Order Comment: If no t done in ED No: Do not add to previous draw Result Comment: Give n the appropriate clinical setting a BNP result of >100 pg/mL indicates congestive heart failure. Performed By: #### 8 5123 #### [facility] [address] [place] [id number], [facility] CBC W/DIFFon 06-11-2019 ABS BASOPHILS 0.0 10*3/uL Normal 0.0-0.2 The [facility] Comment on above: Order Comment: No: D o not add to previous draw Performed By: #### 5 0103 #### [facility] [address] [place] [address], [facility] ABS IMM GRANS 0.0 10*3/uL Normal 0.0-0.2 [facility] Comment on above: Order Comment: No: D o not add to previous draw Performed By: #### 5 0103 #### [facility] [address] [place] [address], [facility] ABS NEUTROPHILS 7.1 10*3/uL Normal 1.6-7.6 The [facility] Comment on above: Order Comment: No: D o not add to previous draw Performed By: #### 5 0103 #### [facility] [address] [place] [address], [facility] Basophils/100 WBC (Bld) 0.3 % Normal 0.0-1.0 [facility] Comment on above: Order Comment: No: D o not add to previous draw Performed By: #### 5 0103 #### [facility] [address] [place] [address], [facility] Eosinophils (Bld) [#/Vol] 0.2 10*3/uL Normal 0.0-0.5 [facility] Comment on above: Order Comment: No: D o not add to previous draw Performed By: #### 5 0103 #### [facility] [address] [place] [id number], [facility] Eosinophils/100 WBC (Bld) 1.8 % Normal 0.0-6.0 [facility] Comment on above: Order Comment: No: D o not add to previous draw Performed By: #### 5 0103 #### [facility] [address] [place] [address], [facility] Erythrocyte distribution width (RBC) [Ratio] 13.7 % Normal 11.5-15.0 [facility] Comment on above: Order Comment: No: D o not add to previous draw Performed By: #### 5 0103 #### [facility] [address] [place] [address], [facility] Hematocrit (Bld) [Volume fraction] 43.1 % Normal 39.0-50.0 [facility] Comment on above: Order Comment: No: D o not add to previous draw Performed By: #### 5 0103 #### [facility] [address] [place] [address], [facility] Hemoglobin (Bld) [Mass/Vol] 12.9 g/dL Low 13.0-17.0 [facility] Comment on above: Order Comment: No: D o not add to previous draw Performed By: #### 5 0103 #### [facility] [address] [place] [address], [facility] IMMATURE GRANS 0.3 % Normal 0.0-1.0 The [facility] Comment on above: Order Comment: No: D o not add to previous draw Performed By: #### 5 0103 #### [facility] [address] [place] [address], [facility] Lymphocytes (Bld) [#/Vol] 1.7 10*3/uL Normal 1.2-4.0 [facility] Comment on above: Order Comment: No: D o not add to previous draw Performed By: #### 5 0103 #### [facility] [address] [place] [id number], [facility] Lymphocytes/100 WBC (Bld) 17.6 % Low 20.0-45.0 [facility] Comment on above: Order Comment: No: D o not add to previous draw Performed By: #### 5 0103 #### [facility] [address] [place] [address], [place] MCH (RBC) [Entitic mass] 28.6 pg Normal 27.0-33.0 [facility] Comment on above: Order Comment: No: D o not add to previous draw Performed By: #### 5 0103 #### [facility] [address] [place] [id number], [facility] MCHC (RBC) [Mass/Vol] 29.9 g/dL Low 32.0-35.0 [facility] Comment on above: Order Comment: No: D o not add to previous draw Performed By: #### 5 0103 #### [facility] [address] [place] [address], [facility] MCV (RBC) [Entitic vol] 95.6 fL Normal 82.0-98.0 [facility] Comment on above: Order Comment: No: D o not add to previous draw Performed By: #### 5 0103 #### [facility] [address] [place] [id number], [facility] Monocytes (Bld) [#/Vol] 0.7 10*3/uL Normal 0.1-1.0 [facility] Comment on above: Order Comment: No: D o not add to previous draw Performed By: #### 5 0103 #### [facility] [address] [place] [address], [facility] MONOS 6.9 % Normal 5.0-12.0 [facility] Comment on above: Order Comment: No: D o not add to previous draw Performed By: #### 5 0103 #### [facility] [address] [facility] [place] [address], [facility] Neutrophils/100 WBC (Bld) 73.1 % High 40.0-72.0 [facility] Comment on above: Order Comment: No: D o not add to previous draw Performed By: #### 5 0103 #### [facility] [address] [facility] [place] [address], [facility] Nucleated RBC/100 WBC (Bld) [Ratio] 0 % Normal 0-0 [facility] Comment on above: Order Comment: No: D o not add to previous draw Performed By: #### 5 0103 #### [facility] [address] [place] [id number], [facility] PLAT CNT 157 10*3/uL Normal 150-400 [facility] Comment on above: Order Comment: No: D o not add to previous draw Performed By: #### 5 0103 #### [facility] [address] [place] [address], [facility] RBC (Bld) [#/Vol] 4.51 10*6/uL Normal 4.20-5.70 The [facility] Comment on above: Order Comment: No: D o not add to previous draw Performed By: #### 5 0103 #### [facility] [address] [place] [address], [facility] WBC (Bld) [#/Vol] 9.68 10*3/uL Normal 4.00-10.60 [facility] Comment on above: Order Comment: No: D o not add to previous draw Performed By: #### 5 0103 #### [facility] [address] [facility] History and Physicalon 06-11 History and Physical MR#: [id number] [facility] Pt. Name: Mackenzie Dumont Admitted: 06/11/2019 Date of : 1955 Attending Physician: Cynthia Miguel M.D. Room #: [id number] Discharge Date: HISTORY AND PHYSICAL CHIEF COMPLAINT: Shortness of breath. HISTORY OF PRESENT ILLNESS: Mr. Peterson is a 63-year-old male with a past medical history of diastolic congestive heart failure, obstructive sleep apnea, obesity hypoventilation syndrome, history of DVT, hypertension, CAD, and diabetes mellitus type 2, who was transferred from [facility] for progressively worsening shortness of breath [...] diarrhea, weakness, or numbness. On presentation to [facility], the patient was in respiratory distress. [...] Diastolic CHF exacerbation: ABG on presentation to [facility] revealed a pH of 7.27, pCO2 [...] His baseline is 1.45 to 1.55 per [facility] notes. The patient will be on Lasix [...] Miguel M.D. Date Trans: 06/11/2019 12:14 P/mmo [id number] Normal [facility] MAGNESIUM BLOODon 06-11-2019 Magnesium [Mass/Vol] 1.9 mg/dL Normal 1.9-2.7 [facility] Comment on above: Order Comment: No: D o not add to previous draw Performed By: #### 4 1000, 20084, 06795, 54600 #### [facility] [address] [place] [address], [facility] PHOSPHORUS BLOODon 9 Phosphate [Mass/Vol] 3.6 mg/dL Normal 2.5-5.0 [facility] Comment on above: Order Comment: No: D o not add to previous draw Performed By: #### 4 1000, 61632, 35460, 74871 #### [facility] [address] [facility] [place] [address], [facility] POC GLUCOSE LABon 06-11-2019 Glucose [Mass/Vol] 168 mg/dL High 70-100 [facility] Comment on above: Performed By: #### 8 5123 #### [facility] [address] [place] [address], [facility] Glucose [Mass/Vol] 235 mg/dL High 70-100 [facility] Comment on above: Performed By: #### 8 5499 #### [facility] [address] [place] [address], [facility] PORTABLE CHEST 1 VIEWon PORTABLE CHEST 1 VIEW [facility] Department of Radiology [address] [place] [id number] Patient Name: MACKENZIE DUMONT : 1955 Sex: M Age: Race: White Pt. Location: [id number] Patient Status: I Ordered Date: 06/11/2019 10:25:00 [...] Electronically signed by:Carlos Eduardo Loera. Transcribed by: [email or web address], User Resident: Electronically Signed by: CARLOS EDUARDO LOERA @ 06/11/2019 03:03 PM Normal [facility] Comment on above: Order Comment: R/O C HF TROPONIN-Ion 06-11-2019 Troponin I.cardiac [Mass/Vol] 0.12 ng/mL Critically high 0.00-0.04 [facility] Comment on above: Order Comment: No: D o not add to previous draw Result Comment: REFE RENCE RANGES: 0.00 - 0.04 ng/ml NORMAL 0.05 - 0.50 ng/ml INDETERMINATE > 0.50 ng/ml CONSISTENT WITH AN M.I. Performed By: #### 3 5200 #### [facility] [address] Troponin I.cardiac [Mass/Vol] 0.15 ng/mL Critically high 0.00-0.04 [facility] Comment on above: Result Comment: M-TR OPONIN INITIAL CRITICAL HIGH; RESPUN AND RETESTED M-CRITICAL RESULT(S) REVIEWED, CALLED TO AND READ BACK BY ANDRE FELIX RN AT 1504 REFERENCE RANGES: 0.00 - 0.04 ng/ml NORMAL 0.05 - 0.50 ng/ml INDETERMINATE > 0.50 ng/ml CONSISTENT WITH AN M.I. Performed By: #### 4 1000, 78798, 39092, 04214 #### [facility] [address] Vital Signs Date Time Vital Sign Value Performing Clinician Faci lity 11-18-2024 09:46-0400 Body height 175.3 cm Jeffry Garces DPM Work Phone: [facility] 11-18-2024 09:46-0400 Body mass index (BMI) [Ratio] 46.67 kg/m2 Jeffry Brown DPM Work Phone: [facility] 11-18-2024 09:46-0400 Body weight 143.34 kg Jeffry Garces DPM Work Phone: [facility] 11-18-2024 09:46-0400 Respiratory rate 18 /min Jeffry Garces DPM Work Phone: [facility] 09-02-2024 10:08-0500 Body height 175.3 cm Jeffry Garces DPM Work Phone: [facility] 09-02-2024 10:08-0500 Body mass index (BMI) [Ratio] 46.67 kg/m2 Jeffry Garces DPM Work Phone: [facility] 02-27-2025 10:08-0500 Body weight 143.34 kg Jeffry Brown DPM Work Phone: [facility] 09-02-2024 10:08-0500 Respiratory rate 18 /min Jeffry Brown DPM Work Phone: [facility] 05-06-2024 12:00-0400 Body height 175.3 cm Jeffry Brown DPM Work Phone: [facility] 05-06-2024 12:00-0400 Body mass index (BMI) [Ratio] 46.67 kg/m2 Jeffry Brown DPM Work Phone: [facility] 05-06-2024 12:00-0400 Body weight 143.34 kg Jeffry Brown DPM Work Phone: [facility] 05-06-2024 12:00-0400 Diastolic blood pressure 80 mm[Hg] Jeffry Brown DPM Work Phone: [facility] 05-06-2024 12:00-0400 Heart rate 85 /min Jeffry Brown DPM Work Phone: [facility] 05-06-2024 12:00-0400 Systolic blood pressure 126 mm[Hg] Jeffry Brown DPM Work Phone: [facility] 02-26-2024 11:06-0400 Body height 175.3 cm Jeffry Brown DPM Work Phone: [facility] 02-26-2024 11:06-0400 Body mass index (BMI) [Ratio] 46.67 kg/m2 Jeffry Brown DPM Work Phone: [facility] 02-26-2024 11:06-0400 Body weight 143.34 kg Jeffry Brown DPM Work Phone: [facility] 02-26-2024 11:06-0400 Diastolic blood pressure 80 mm[Hg] Jeffry Brown DPM Work Phone: [facility] 02-26-2024 11:06-0400 Heart rate 89 /min Jeffry Brown DPM Work Phone: [facility] 02-26-2024 11:06-0400 Systolic blood pressure 129 mm[Hg] Jeffry Garces DPM Work Phone: [facility] 06-04-2021 19:26-0500 Body temperature 96.69 [degF] Latoya Moyer DO Work Phone: [facility] 06-04-2021 19:20-0500 Diastolic blood pressure 66 mm[Hg] Latoya Eliseis DO Work Phone: [facility] 06-04-2021 19:20-0500 Systolic blood pressure 174 mm[Hg] Latoya Moyer DO Work Phone: [facility] 06-04-2021 19:18-0500 SaO2% (BldA) [Mass fraction] 96 % Latoya Moyer DO Work Phone: [facility] 06-04-2021 19:12-0500 Heart rate 71 /min Latoya Moyer DO Work Phone: [facility] 06-04-2021 19:12-0500 Respiratory rate 16 /min Latoya Ellis DO Work Phone: [facility] Encounters Encounter Date Encounter Type Care Provider Facility Start: 11-18-2024 End: 11-18-2024 Bamboo flowsheet Jeffry Garces DPM Work Phone: [facility] Start: 11-18-2024 End: 11-18-2024 Bamboo flowsheet Jeffry Garces DPM Work Phone: [facility] Start: 11-18-2024 End: 11-18-2024 Patient encounter procedure Jeffry Garces DPM Work Phone: [facility] Comment on above: Diabetes mellitus du e to underlying condition with diabetic polyneuropathy, with long-term current use of insulin ([facility]) (Primary Dx); Pain due to onychomycosis of toenails of both feet Start: 11-18-2024 End: 11-18-2024 ambulatory JEFFRY GARCES Not Available Start: 09-20-2024 End: 09-20-2024 Telephone encounter Kristin Islas Florentinjemal DO Work Phone: [facility] Comment on above: Antibiotic Start: [...] polyneuropathy, with long-term current use of insulin (CMS/[facility]) (Primary Dx); Pain due to onychomycosis of toenails of both feet Start: 09-02-2024 End: 09-02-2024 ambulatory JEFFRY GARCES Not Available Start: 06-16-2024 End: 06-16-2024 ambulatory [facility] Start: 05-06-2024 End: 05-06-2024 Bamboo flowsheet Jeffry [...] polyneuropathy, with long-term current use of insulin ([facility]) (Primary Dx); Onychomycosis; Toe pain, bilateral Start: [...] 06-05-2021 Emergency department patient visit JOSH PRO [facility] Start: 06-04-2021 End: 06-04-2021 Emergency department patient visit Latoya Moyer DO Work Phone: [facility] ED Comment on above: Hypoglycemia (Primar y Dx) Start: 06-11-2019 End: 06-15-2019 Evaluation and management of inpatient [place] Facility:[facility] Procedures Date Procedure Procedure Detail Performing Clinician Start: 04-08-[address] JOSH PRO Comment on above: Performed By: #### P [facility] #### [facility] [address] [place] [address] Dr. Constantin Yepez Start: 06-04-2021 GLUCOSE, WHOLE [...] - Tdap) DTaP/Tdap/Td vaccine (2 - Tdap) [facility] Start: 01-27-2025 End: 01-27-2025 Patient encounter procedure 01/27/2025 10:10 AM EDT Office Visit [facility] [address] [phone] Jeffry Garces DPM [address] [address] [facility] Start: 11-18-2024 End: 11-18-2024 Patient encounter procedure [facility] Comment on above: Diabetes mellitus du e to underlying condition with diabetic polyneuropathy, with long-term current use of insulin (CMS/HCC) (Primary Dx); Pain due to onychomycosis of toenails of both feet Start: 09-02-2024 End: 09-02-2024 Patient encounter procedure 09/02/2024 10:40 AM EST Office Visit [facility] [address] [phone] Jeffry Garces DPM [address] [address] Diabetes mellitus due to underlying condition with [...] EST Office Visit [facility] [address] [phone] Jeffry Garces DPM [address] [address] [facility] Start: 05-06-2024 End: 05-06-2024 Patient encounter procedure [facility] Comment on above: Diabetes mellitus du e to underlying condition with diabetic polyneuropathy, with long-term current use of insulin (CMS/HCC) (Primary Dx); Pain due to onychomycosis of toenails of both feet Start: 02-26-2024 End: 02-26-2024 Patient encounter procedure 02/26/2024 11:40 AM EDT Office Visit [facility] 112 [facility] [address] [place] [address] Jeffry Garces DPM [address] [facility] [place] [address] Diabetes mellitus due to underlying condition with diabetic polyneuropathy, with long-term current use of insulin (CMS/HCC) (Primary Dx); Onychomycosis; Toe pain, bilateral [facility] Comment on above: Diabetes mellitus du e to underlying condition with diabetic polyneuropathy, with long-term current use of insulin (CMS/HCC) (Primary Dx); Onychomycosis; Toe pain, bilateral Start: 06-04-2022 Creatinine measurement Creatinine mo nitoring [facility] Start: 06-04-2022 Potassium monitoring Potassium monit oring [facility] Start: 03-07-2021 Influenza vaccination Flu vaccine (# 1) [facility] Start: 2004 Shingles Vaccine (1 of 2) Shingles Vaccine (1 of 2) [facility] Start: 1999 Screening for malign ant neoplasm of colon Colon cancer screen colonoscopy [facility] Start: 1966 COVID-19 Vaccine (1) COVID-19 Vaccin e (1) [facility] Start: 1964 Lipid panel Lipid screen [facility] Start: 1955 Hepatitis C screening Hepatitis C sc reen [facility] EKG 12 Lead EKG 12 Lead ECG STAT 06/04/2021 7:12 PM EST [facility] Phone: End: 06-04-2021 Glucose [Mass/volume] in Serum or Plasma [facility] Work Phone: Comment on above: One Time for 1 Occur rences starting 06/04/2021 until 06/04/2021 Payers Date Payer Category Payer Unknown [id number] 2022 Medicare [facility] MEDICARE CO MPLETE [facility] MEDICARE COMPLETE ([employer]) [id number] 2022-Present [address] [address] [place] [address] [id number] 2022 Medicare (Managed Care) [id number]. [id number] 2022 Unknown [id number] 2017 Unknown [id number] 1959 Unknown [id number] 1955 Unknown [id number] [id number]. 647 1955 Unknown [id number] [id number]. 593 1954 Unknown [id number] [id number]. 593 1954 Unknown [id number] [id number]. 1259 1954 Unknown [id number] [id number]. 1259 1954 Unknown [id number] [id number]. 1259 1954 Unknown [id number] 2.16.840.1.073995.3.579.2. 1259 1954 Unknown [id number] [id number]. 1259 1954 Unknown [id number] [id number]. 1259 1955 Unknown [id number] [id number]. 1259 Medicare [id number] Social History Date Type Detail Facility Start: 06-04-2021 End: 11-27-2022 Tobacco smoking status NHIS Never smoked tobacco [facility] Phone: Start: 06-04-2021 End: 11-27-2022 Tobacco use and exposure Smokeless tobacco non-user [facility] Phone: Start: 06-04-2021 End: 11-18-2024 Alcohol intake Lifetime non-drinker (finding) [facility] Phone: Start: 06-04-2021 History SDOH Alcohol Frequency 1 [facility] Phone: Start: 1955 Sex Assigned At Not on file [facility] Phone: Start: 02-26-2024 End: 10-19-2024 History of Social function [facility] Start: 02-26-2024 End: 10-19-2024 Tobacco use panel [facility] Start: 1955 Sex assigned at Male [facility] Start: 10-16-2023 Gender identity Identifies as [...] Note Allergies reveiwed. Rx sent to pharmacy [facility] 09-20-2024 Miscellaneous Notes Allergies reveiwed. Rx sent to pharmacy Patient called in stating he needs an antibiotic sent to his pharmacy. documented in this encounter [facility] 09-20-2024 Telephone encounter Note Patient called in stating he needs an antibiotic sent to his pharmacy. [facility] 06-16-2024 Note Patient here for 1 y [...] All other systems reviewed and are negative. [facility] 06-16-2024 Note Cardiovascular Medic [facility] SUBJECTIVE Chief Complaint Patient presents with Coronary [...] without complication (CMS/HCC) Type 1 diabetes mellitus ([facility]) Shoulder joint pain Positive D-dimer Peripheral venous insufficiency Biceps tendinitis Brachial neuritis Past Medical History: Diagnosis Date CAD (coronary artery disease) Carpal tunnel syndrome CHF (congestive heart failure) ([facility]) CKD (chronic kidney disease) COPD (chronic obstructive pulmonary disease) ([facility]) Diastolic heart failure ([facility]) DM (diabetes mellitus) ([facility]) GERD (gastroesophageal reflux disease) Hyperlipidemia Hypertension IMAN [...] Normal range of (more content not included)... [facility] 05-06-2024 History of Presen t illness Narrative [...] History: Past Medical History: Diagnosis Date Diabetes ([facility]) Gout Neuropathy in diabetes ([facility]) Onychomycosis Tinea pedis Medications: Current Outpatient Medications: [...] Partner Violence: Unknown (08/28/2023) Received from [facility] [place] [employer] Fear of Current [...] and negative PT pedal pulses NEURO: 5.07 Maspeth Lenin monofilament test diminished to digits and forefoot bilaterally 125Hz tuning fork diminished to 1st MPJ bilaterally ORTHO: Positive pain on palpation to nails 1 through 10 ASSESSMENT 1. Diabetes mellitus due to underlying condition with diabetic polyneuropathy, with long-term current use of insulin ([facility]) 2. Pain due to onychomycosis of toenails of both feet PLAN Discussed proper foot care with patient today. Debride nails in length and thickness digits 1 through 10 Jeffry Garces DPM documented in this encounter [facility] 02-26-2024 History of Presen t illness Narrative [...] History: Past Medical History: Diagnosis Date Diabetes ([facility]) Gout Neuropathy in diabetes ([facility]) Onychomycosis Tinea pedis Medications: Current Outpatient Medications: [...] Partner Violence: Unknown (08/28/2023) Received from [facility], [facility] [place] [employer] [place] Fear of Current [...] and negative PT pedal pulses NEURO: 5.07 Maspeth Lenin monofilament test diminished to digits and [...] Jeffry Garces DPM documented in this encounter [facility] 06-04-2021 Hospital Discharg Latoya Haro DO - 06/04/2021 Please call your primary care doctor tomorrow regarding additional management of your diabetes and med adjustments. Return to ER if you start to feel ill, monitor your glucose at home with frequent checks. documented in this encounter [facility]: Evaluation note Diagnosis Hypoglycemia- Primary Hypoglycemia, unspecified documented in this encounter [facility] Phone: evaluation note* Diagnosis Diabetes mellitus due to underlying condition with diabetic polyneuropathy, with long-term current use of insulin (CMS/HCC)- Primary Pain due to onychomycosis of toenails of both feet documented in this encounter [facility] HealthcareEvaluation note* Diagnosis Diabetes mellitus due to underlying condition with diabetic polyneuropathy, with long-term current use of insulin (CMS/HCC)- Primary Onychomycosis Dermatophytosis of nail Toe pain, bilateral documented in this encounter [facility] HealthcareEvaluation note* Diagnosis Diabetes mellitus due to underlying condition with diabetic polyneuropathy, with long-term current use of insulin (CMS/HCC)- Primary Pain due to onychomycosis of toenails of both feet documented in this encounter [facility] Healthcare[facility] note* Diagnosis History of total knee replacement, unspecified laterality- Primary documented in this encounter [facility] Healthcare[facility] note* Diagnosis Diabetes mellitus due to underlying condition with diabetic polyneuropathy, with long-term current use of insulin (CMS/HCC)- Primary Pain due to onychomycosis of toenails of both feet documented in this encounter [facility] HealthcareHistory of Present illness Narrative* Jeffry Garces DPM - 09/02/2024 10:40 AM EST Patient: Mackeznie Dumont : 1955 PCP: No primary care [...] History: Past Medical History: Diagnosis Date Diabetes ([facility]) Gout Neuropathy in diabetes ([facility]) Onychomycosis Tinea pedis Medications: Current Outpatient Medications: [...] Partner Violence: Unknown (08/28/2023) Received from [facility] [place] [employer] [place] Fear of Current [...] and negative PT pedal pulses NEURO: 5.07 Maspeth Lenin monofilament test diminished to digits and forefoot bilaterally 125Hz tuning fork diminished to 1st MPJ bilaterally ORTHO: Positive pain on palpation to toenails of the left 1,2,3,4,5 toes and right 1,2,3,4,5 toes ASSESSMENT 1. Diabetes mellitus due to underlying condition with diabetic polyneuropathy, with long-term current use of insulin ([facility]) 2. Pain due to onychomycosis of toenails of both feet PLAN Discussed proper foot care with patient today. Debride nails in length and thickness digits 1 through 10 Jeffry Garces DPM documented [facility] of Present illness Narrative * Jeffry [...] History: Past Medical History: Diagnosis Date Diabetes ([facility]) Gout Neuropathy in diabetes ([facility]) Onychomycosis Tinea pedis Medications: Current Outpatient Medications: [...] Partner Violence: Unknown (08/28/2023) Received from [facility] [place] [facility] [place] Fear of Current [...] and negative PT pedal pulses NEURO: 5.07 Maspeth Lenin monofilament test diminished to digits and forefoot bilaterally 125Hz tuning fork diminished to 1st MPJ bilaterally ORTHO: Positive pain on palpation to toenails of the left 1,2,3,4,5 toes and right 1,2,3,4,5 toes ASSESSMENT 1. Diabetes mellitus due to underlying condition with diabetic polyneuropathy, with long-term current use of insulin ([facility]) 2. Pain due to onychomycosis of toenails [...] Records Found Hospital Course Note MR#: [id number] [facility] Pt. Name: Mackenzie Dumont Admitted: 06/11/2019 [...] and content) DATE CREATED AUTHOR 07/07/[address] [facility] DATE CREATED AUTHOR AUTHOR'S ORGANIZ ATION 06/08/2021 [facility] DATE CREATED AUTHOR AUTHOR'S ORGANIZ ATION 04/12/2022 [facility] DATE CREATED AUTHOR AUTHOR'S ORGANIZ ATION 09/06/2023 [facility] EPIC DATE CREATED AUTHOR AUTHOR'S ORGANIZ ATION 11/19/2024 [facility] EPIC DATE CREATED AUTHOR AUTHOR'S ORGANIZ ATION 12/04/2024 [facility] Reason for Visit (unrecogniz ed section and [...] (New Bag - Prov ider: Cindy Quick RN)[id number] (Stopped - Provider: Cindy Quick RN) No Frequency Medication Order 06/02/2021 06/03/2021 06/04/2021 dextrose 50 % solution Starting on Fri06/04/21 at 1905, For 1 dose, Tyro, Amber: cabinet override 191 (Due) dextrose 50 % solution Starting on Fri06/04/21 at 1908, For 1 dose, Tyro, Amber: cabinet override 191 (Due) Care Teams (unrecognized sec tion and content) Hairspring Ii Inspector Relationship Specialty Start Date End Date Josh Pro MD [address] [place] [address] PCP - General Family Medicine 06/04/21 Hairspring Ii Inspector Relationship Specialty Start Date End Date Josh Pro MD [address] [place] [address] PCP - General Family Medicine 09/02/24 Hairspring Ii Inspector Relationship Specialty Start Date End Date Josh Pro MD [address] [place] [address] PCP - General Family Medicine 09/02/24 Hairspring Ii Inspector Relationship Specialty Start Date End Date Josh Pro MD [address] [place] [address] PCP - General Family Medicine 09/02/24 Hairspring Ii Inspector Relationship Specialty Start Date End Date Josh Pro MD [address] [place] [address] PCP - General Family Medicine 09/02/24 Hairspring Ii Inspector Relationship Specialty Start Date End Date Josh Pro MD [address] [place] [address] PCP - General Family Medicine 09/02/24 FOR [...] BE BASED ON THE PRIMARY CLINICAL RECORDS. [facility]. provides no warranty or guarantee of the accuracy or completeness of information in this document.
--- OUTSIDE RECORDS SUMMARY | 2024-12-15 07:16 | XMS_ITS | Encounter Summary ---
Author Organization [facility] Address [address] [facility] [place] [address] Care Team Providers Care Director Of Payroll Name Role Phone Josh Talavera MD Primary Care Provider [phone] Encounter Details Date Type Department Care Team (Late st Contact Info) Description 10/06/2023 Abstract [facility] 112 [facility] [address] [place] [phone] Emily Larson MD [address] [place], [place] [id number] Social History Tobacco Use Types Packs/Day Years [...] [facility] [address] [place] [phone] Jeffry Garces DPM [address] [facility] 5 [place] [address] documented as of this encounter Visit Diagnoses Not on filedocumented in this encounter Care Teams Director Of Payroll Relationship Specialty Start Date End Date Josh Talavera MD [address] [place], [place] [id number] PCP - General Family Medicine 09/02/24 documented as of this encounter
--- OUTSIDE RECORDS SUMMARY | 2024-12-15 07:16 | XMS_ITS | Clinical Summary ---
Author Organization [facility] Address [address] [place] [address] Care Team Providers Care Balloon Dipper Name Role Phone Talavera Josh Primary Care Provider [phone] Allergies No known active allergies Medications allopurinol [...] disease 06/11/2012 Type 1 diabetes mellitus 06/11/2012 Encounters Date Type Department Care Team Description 12/01/2024 Telephone [facility] [address] [place] [address] Izabella Putnam MA from Last 3 Months Family History Medical [...] Recorded Patient Health Questionnaire-2 Score 0 12/30/2022 ID Safety & Environment Answer Date Rec orded [...] COVID-19 Vaccine ( season) 2024 Pneumococcal Vaccine: 50+ Years Completed 04/16/2021, 02/02/2016 Influenza Vaccine Completed [...] Most Recently Relevant to Health Maintenance Insurance [facility] MEDICARE ADVANTAGE Care Teams Balloon Dipper Relationship Specialty Start Date End Date Josh Talavera DO [address] [place] [address] PCP - General 05/29/22
--- OUTSIDE RECORDS SUMMARY | 2024-12-15 07:16 | XMS_ITS | Clinical Summary ---
Author Organization [facility] Address [address] [place] [address] Care Team Providers Care Soda Maker Name Role Phone Josh Talavera MD Primary [...] Office Visit [facility] [address] [place] [id number] Jeffry Garces DPM Diabetes mellitus due to underlying condition with diabetic polyneuropathy, with long-term current use of insulin ([facility]) (Primary Dx); Pain due to onychomycosis of toenails of both feet 11/18/2024 Bamboo flowsheet [facility] [address] [place] [id number] Jeffry Garces DPM 11/18/2024 Travel 09/20/2024 Telephone [facility] [address] [place] [address] Jr. Ramón Victoria, DO Antibiotic from Last 3 Months Family History Medical [...] Upcoming Encounters Date Type Department Care Team ([facility] st Contact Info) Description 01/27/2025 10:10 AM EDT Office Visit [facility] [address] [facility] [address] [place] [phone] Jeffry Garces DPM [address] [facility] [address] [place] [address] Insurance [facility] [place] [address] Care Teams Soda Maker Relationship Specialty Start Date End Date Josh Talavera MD [address] [place] [id number] PCP - General Family Medicine 09/02/24
--- OUTSIDE RECORDS SUMMARY | 2024-12-15 07:17 | XMS_ITS | Encounter Summary ---
Author Organization [facility] Address [address] [place] [address] Care Team Providers Care Senior Designer Name Role Phone Josh Talavera MD Primary Care Provider [phone] Encounter Details Date Type Department Care Team (Late st Contact Info) Description 06/24/2024 Abstract [facility] [address] [place] [address] Unallocated, Noms Provider, [address] [place] [address] Social History Tobacco Use Types Packs/Day Years [...] [facility] [address] [place] [address] Jeffry Garces DPM [address] [facility] [address] [place] [address] documented as of this encounter Visit Diagnoses Not on filedocumented in this encounter Care Teams Senior Designer Relationship Specialty Start Date End Date Josh Talavera MD [facility] [address] [place] [id number] PCP - General Family Medicine 09/02/24 documented as of this encounter
--- OUTSIDE RECORDS SUMMARY | 2024-12-15 07:17 | XMS_ITS | Clinical Summary ---
Author Organization [facility] Address [address] [place] [address] Care Team Providers Care Conveyor Monitor Name Role Phone Josh Talavera MD Primary Care Provider [phone] Allergies No known active allergies Medications metoprolol [...] file Insurance [employer] Care Teams Conveyor Monitor Relationship Specialty Start Date End Date Josh Talavera MD [address] [place] [address] PCP - General Family Medicine 06/04/21
--- OUTSIDE RECORDS SUMMARY | 2024-12-15 07:17 | XMS_ITS | Clinical Summary ---
Author Organization [employer] [facility] tem Address [id number] [address] [place] [address] Care Team Providers Care Primer Expeditor And Drier Name Role Phone Josh Talavera Devon ADAM Primary Care Provider [phone] Allergies No known active allergies Medications multivit-min/fe [...] file Insurance [employer] Care Teams Primer Expeditor And Drier Relationship Specialty Start Date End Date Josh Talavera DO [address] [place] [address] PCP - General Family Medicine 05/31/20
== END 2024-12-15 07:14 | disposition home or self-care (01) ==
LOC: LAB 07:13
PROVIDERS: PCP Family Medicine; Visit Provider Nurse Practitioner Family
DX: I50.41 Acute combined systolic (congestive) and diastolic (congestive) heart failure (principal)
CPT/HCPCS: 36415; 83880

== ENCOUNTER 2025-04-01 09:32 | Outpatient (OUT) | payer MEDICARE, SELFPAY ==
--- OUTSIDE RECORDS SUMMARY | 2025-04-01 09:38 | XMS_ITS | CCD ---
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 Name Role Phone Sea Voss Admitting Unavailable [...] Provider UnavailJosh Harp MD Primary Care Provider MICH HEWITT Attending Unavailable JEFFRY GARCES Attending Unavailable JEFFRY GARCES Attending Unavailable JEFFRY GARCES Attending Unavailable JEFFRY GARCES Attending Unavailable JEFFRY GARCES Attending Unavailable Allergies Allergy Classification Reported Allergen(s) Allergy Type Date of Onset Reaction(s) Facility (1 source) 38633,00; Translations: [Unknown] Propensity to adverse reactions (disorder) 9 [facility] Repository Medications Current Medications Medication Drug Class(es) Dates Sig (Normalized) Sig (Original) allopurinol 100 mg oral tablet (17 sources) Xanthine Oxidase Inhibitor Start: 03-28-2021 take 1 tablet by mouth once daily allopurinol (ZYLOPRIM) 100 MG tablet TAKE 1 TABLET BY MOUTH EVERY DAY 0 03/28/2021 Active amLODIPine 10 mg oral tablet (17 sources) Dihydropyridine Calcium Channel Sondra Start: 06-03-2022 take 1 tablet by mouth in the morning amLODIPine (Norvasc) 10 MG tablet Take 10 mg by mouth in the morning. 06/03/2022 Active take 1 tablet by mouth once catalina y amLODIPine (NORVASC) 10 MG tablet amlodipine 10 mg tablet TAKE 1 TABLET BY MOUTH EVERY DAY 0 Active amoxicillin 500 mg oral tablet (13 sources) Penicillin-class Antibacterial Start: 09-20-2024 take 4 tablets by mouth once at mealtime amoxicillin (Amoxil) 500 MG tablet Indications: History of total knee replacement, unspecified laterality 4 tabs PO once 30-60 mins before procedure with food 4 tablet 3 10/19/2024 Active aspirin 81 mg delayed release oral tablet (17 sources) Platelet Aggregation Inhibitor, Nonsteroidal Anti-inflammatory Drug take 1 tablet by mouth in the morning aspirin 81 MG EC tablet Take 81 mg by mouth in the morning. Active atorvastatin 80 mg oral tablet (17 sources) HMG-CoA Reductase Inhibitor Start: 01-29-2023 take 1 tablet by mouth in the morning atorvastatin (Lipitor) 80 MG tablet Take 80 mg by mouth in the morning. 01/29/2023 Active take 1 tablet by mouth once catalina y atorvastatin (LIPITOR) 80 MG tablet atorvastatin 80 mg tablet TAKE 1 TABLET BY MOUTH DAILY 0 Active celecoxib 200 mg oral capsule (16 sources) Nonsteroidal Anti-inflammatory Drug take 1 capsule by mouth every twelve hours celecoxib (CeleBREX) 200 MG capsule Take 200 mg by mouth every 12 (twelve) hours. Active ezetimibe 10 mg / simvastatin 20 mg oral tablet (16 sources) HMG-CoA Reductase Inhibitor, Dietary Cholesterol Absorption Inhibitor take 1 tablet by mouth in the morning ezetimibe-simvastat in (Vytorin) 10-20 MG tablet Take 1 tablet by mouth in the morning. Active furosemide 40 mg oral tablet (17 sources) Loop Diuretic take 1 tablet by mouth in the morning furosemide (Lasix) 40 MG tablet Take 40 mg by mouth in the morning. Active gabapentin 600 mg oral tablet (17 sources) Anti-epileptic Agent take 1 tablet by mouth in the morning gabapentin (Neurontin) 600 MG tablet Take 600 mg by mouth in the morning. Active take 2 tablets by mouth twice da earl gabapentin (NEURONTIN) 600 MG tablet gabapentin 600 mg tablet TAKE 2 TABLETS BY MOUTH TWICE DAILY 0 Active hydrALAZINE hydrochloride 50 mg oral tablet (16 sources) Arteriolar Vasodilator take 1 tablet by mouth in the morning hydrALAZINE (Apresoline) 50 MG tablet Take 50 mg by mouth in the morning and 50 mg before bedtime. Active hydroCHLOROthiazide 25 mg oral tablet (16 sources) Thiazide Diuretic take 1 tablet by mouth in the morning hydroCHLOROthiazide (HYDRODiuril) 25 MG tablet Take 25 mg by mouth in the morning. Active insulin detemir 100 unt/ml injectable solution (16 sources) Insulin Analog insulin detemir (Levemir) 100 UNIT/ML injection Inject 100 mL under the skin in the morning. Active insulin glargine-yfgn (Semglee-yfgn) 100 UNIT/ML pen (16 sources) insulin glargine -yfgn (Semglee-yfgn) 100 UNIT/ML pen ADMINISTER 75 UNITS UNDER THE SKIN TWICE DAILY Active insulin isophane, human 70 unt/ml / insulin, regular, human 30 unt/ml injectable suspension (17 sources) Insulin insulin NPH-insu crow regular (HumuLIN [...] 0 Active latanoprost 0.05 mg/ml ophthalmic solution (17 sources) Prostaglandin Analog take 1 drop(s) into the eye(s) once daily latanoprost (Xalatan) 0.005 % ophthalmic solution Administer 1 drop into both eyes 1 (one) time each day at the same time. Active take 1 drop(s) into the eye(s) once daily latanoprost (XALATAN) 0.005 % ophthalmic solution 1 drop nightly 0 Active lisinopril 20 mg oral tablet (16 sources) Angiotensin Converting Enzyme Inhibitor take 1 tablet by mouth in the morning lisinopril 20 MG tablet Take 1 tablet by mouth in the morning. Active losartan potassium 50 mg oral tablet (17 sources) Angiotensin 2 Receptor Sondra take 1 tablet by mouth in the morning losartan (Cozaar) 50 MG tablet Take 50 mg by mouth in the morning. Active take 1 tablet by mouth once catalina y losartan (COZAAR) 25 MG tablet Take 25 mg by mouth daily 0 Active metoprolol tartrate 50 mg oral tablet (19 sources) beta-Adrenergic Sondra Start: 04-16-2021 take 1 [...] with heart failure] Onset: 06-16-2024 Chronic Mycoses (10 sources) Pain in toe; Translations: [Tinea unguium] [...] Episodic Other diseases of veins and lymphatics (16 sources) Peripheral venous insufficiency; Translations: [Venous insufficiency (chronic) (peripheral)] Onset: 11-27-2022 11-27-2022 Episodic Results Test Name Value Interpretation Reference Range Facility 36on 12-21-2024 36 Regarding lab results from 12/15/2024: KALEY Vargas MA Please let him know his labs show stable kidney function, normal blood counts, cholesterol levels are well controlled. His potassium level was a tad on the low side. Recommend we add Kcl 10mEq daily with follow-up BMP in 1 month. Thanks! Aminata Tried to contact patient and his voicemail box is not set up, therefore I'm unable to leave a message. I will try back tomorrow. [facility] 36on 12-01-2024 36 Regarding echo result from 11/24/2024: KALEY Vargas MA His ECHO shows evidence of fluid overload. Please have him double his lasix, 40mg BID with follow up BMP/BNP in 1 week. Thanks! Spoke with patient and he's currently taking lasix 40mg once daily. He will start taking it twice daily per Aminata, and have labs drawn in 1 week. Patient verbalized understanding. Orders faxed to [facility]. Normal [facility] Office Visiton 06-16-2024 Follow-up visit [id number] Mackenzie Dumont 1955 M Date Provider Department Center 06/16/2024 MICH MOREJON JERICHO [facility] Family History Problem Relation Age of Onset Coronary artery disease Brother Other Brother Family Status - Relation Status Age at Brother Level of Service:[address] [place] OFFICE/OUTPATIENT ESTABLISHED LOW MDM 20 MIN Reason for Visit and Comments: Coronary Artery Disease [187] Congestive Heart Failure [127] Hypertension [265695] Normal [facility] LIPID PROFILEon 04-08-2022 CHOL-HDL RATIO NORM SEE BELOW Normal [facility] Comment on above: Result Comment: 3.3 - 4.4 LOW RISK 4.4 - 7.1 AVERAGE RISK 7.1 - 11.0 MODERATE RISK >11.0 HIGH RISK Performed By: #### U SHILA, LIPID, CMP #### [facility] [address] [address] [address] Constantin Yepez Cholesterol [Mass/Vol] 127 mg/dL Normal <=200 Th [facility] Comment on above: Performed By: #### U SHILA, LIPID, CMP #### [facility] [address] [address] [address] Constantin Yepez Cholesterol in HDL [Mass/Vol] 39 mg/dL Critically low 40-60 [facility] Comment on above: Performed By: #### U SHILA, LIPID, CMP #### [facility] [address] [address] [address] Constantin Yepez Cholesterol in LDL [Mass/Vol] 65.0 mg/dL Normal [facility] Comment on above: Performed By: #### U SHILA, LIPID, CMP #### [facility] [address] [address] [address] Constantin Yepez Cholesterol.total/Chol esterol in HDL [Mass ratio] 3.3 {ratio} Normal [facility] Comment on above: Performed By: #### U SHILA, LIPID, CMP #### [facility] [address] [address] [address] Constantin Yepez HDL NORMAL > or = 60 mg/dl - LOW CARDIOVASCULAR RISK <40 mg/dl - HIGH CARDIOVASCULAR RISK Normal [facility] Comment on above: Performed By: #### U SHILA, LIPID, CMP #### [facility] [address] [address] [address] Constantin Yepez LDL CALC NORMAL SEE BELOW Normal [facility] Comment on above: Result Comment: <100 mg/dl OPTIMAL 100 - 129 mg/dl NEAR OR ABOVE OPTIMAL 130 - 159 mg/dl BORDERLINE HIGH 160 - 189 mg/dl HIGH >190 mg/dl VERY HIGH Performed By: #### U SHILA, LIPID, CMP #### [facility] [address] [address] [address] Constantin Yepez Triglyceride [Mass/Vol] 115 mg/dL Normal <=150 [facility] Comment on above: Performed By: #### U SHILA, LIPID, CMP #### [facility] [address] [address] [address] Constantin Yepez VLDL CALC 23.0 mg/dL Normal [facility] Comment on above: Performed By: #### U SHILA, LIPID, CMP #### [facility] [address] [address] [address] Constantin Yepez PROF 14(COMP METB)on 022 Albumin [Mass/Vol] 3.4 g/dL Normal 3.4-5.0 [facility] Comment on above: Performed By: #### U SHILA, LIPID, CMP #### [facility] [address] [address] [address] Constantin Yepez Albumin/Globulin [Mass ratio] 1.0 {ratio} Normal [facility] Comment on above: Performed By: #### U SHILA, LIPID, CMP #### [facility] [address] [address] [address] Constantin Yepez ALP [Catalytic activity/Vol] 66 U/L Normal 46-116 [facility] Comment on above: Performed By: #### U SHILA, LIPID, CMP #### [facility] [address] [address] [address] Constantin Yepez ALT [Catalytic activity/Vol] 28 U/L Normal 16-63 [facility] Comment on above: Performed By: #### U SHILA, LIPID, CMP #### [facility] [address] [address] [address] Constantin Yepez Anion gap [Moles/Vol] 11.6 mmol/L Normal [facility] Comment on above: Performed By: #### U SHILA, LIPID, CMP #### [facility] [address] [address] [address] Constantin Yepez AST [Catalytic activity/Vol] 13 U/L Critically low 15-37 [facility] Comment on above: Performed By: #### U SHILA, LIPID, CMP #### [facility] [address] [address] [address] Constantin Yepez Bilirubin [Mass/Vol] 0.5 mg/dL Normal 0.2-1.0 [facility] Comment on above: Performed By: #### U SHILA, LIPID, CMP #### [facility] [address] [address] [address] Constantin Yepez Calcium [Mass/Vol] 8.6 mg/dL Normal 8.5-10.1 [facility] Comment on above: Performed By: #### U SHILA, LIPID, CMP #### [facility] [address] [address] [address] Constantin Yepez Chloride [Moles/Vol] 108 mmol/L Critically high 98-107 [facility] Comment on above: Performed By: #### U SHILA, LIPID, CMP #### [facility] [address] [address] [address] Constantin Yepez CO2 [Moles/Vol] 30.0 mmol/L Normal 21.0-32.0 [facility] Comment on above: Performed By: #### U SHILA, LIPID, CMP #### [facility] [address] [address] [address] Constantin Yepez Creatinine [Mass/Vol] 1.39 mg/dL Critically high 0.70-1.30 [facility] Comment on above: Performed By: #### U SHILA, LIPID, CMP #### [facility] [address] [place] [address] Dr. Constantin Yepez EGFR-AF JAMAICAN >60 Normal >=60 [facility] Comment on above: Performed By: #### U SHILA, LIPID, CMP #### [facility] [address] [address] [address] Constantin Yepez EGFR-NON AF JAMAICAN 51 mL/min/1.73m2 Critically low >=60 [facility] Comment on above: Performed By: #### U SHILA, LIPID, CMP #### [facility] [address] [place] [address] Dr. Constantin Yepez Globulin (S) [Mass/Vol] 3.5 g/dL Normal [facility] Comment on above: Performed By: #### U SHILA, LIPID, CMP #### [facility] [address] [place] [address] Dr. Constantin Yepez Glucose [Mass/Vol] 77 mg/dL Normal 74-106 [facility] Comment on above: Performed By: #### U SHILA, LIPID, CMP #### [facility] [address] [place] [address] Dr. Constantin Yepez Potassium [Moles/Vol] 3.6 mmol/L Normal 3.5-5.1 [facility] Comment on above: Performed By: #### U SHILA, LIPID, CMP #### [facility] [address] [place] [address] Dr. Constantin Yepez Protein [Mass/Vol] 6.9 g/dL Normal 6.4-8.2 [facility] Comment on above: Performed By: #### U SHILA, LIPID, CMP #### [facility] [address] [place] [address] Dr. Constantin Yepez Sodium [Moles/Vol] 146 mmol/L Critically high 136-145 [facility] Comment on above: Performed By: #### U SHILA, LIPID, CMP #### [facility] [address] [place] [address] Dr. Constantin Yepez Urea nitrogen [Mass/Vol] 24.0 mg/dL Critically high 7.0-18.0 [facility] Comment on above: Performed By: #### U SHILA, LIPID, CMP #### [facility] [address] [address] [address] Constantin Yepez Urea nitrogen/Creatinine [Mass ratio] 17.3 mg/mg Normal [facility] Comment on above: Performed By: #### U SHILA, LIPID, CMP #### [facility] [address] [address] [address] Constantin Yepez URIC ACID SERUMon 04-08-2022 Urate [Mass/Vol] 6.3 mg/dL Normal 3.5-7.2 [facility] Comment on above: Performed By: #### U SHILA, LIPID, CMP #### [facility] [address] [address] [address] Constantin Yepez PROF CHEM 8 (BAS METB)on Anion gap [Moles/Vol] 7.6 mmol/L Normal [facility] Comment on above: Performed By: #### B MP #### [facility] [address] [address] [address] Constantin Yepez Calcium [Mass/Vol] 8.3 mg/dL Critically low 8.5-10.1 Th [facility] Comment on above: Performed By: #### B MP #### [facility] [address] [address] [address] Constantin Yepez Chloride [Moles/Vol] 107 mmol/L Normal 98-107 [facility] Comment on above: Performed By: #### B MP #### [facility] [address] [address] [address] Constantin Yepez CO2 [Moles/Vol] 31.9 mmol/L Normal 21.0-32.0 [facility] Comment on above: Performed By: #### B MP #### [facility] [address] [address] [address] Constantin Yepez Creatinine [Mass/Vol] 1.62 mg/dL Critically high 0.70-1.30 [facility] Comment on above: Performed By: #### B MP #### [facility] [address] [address] [address] Constantin Yepez EGFR-AF JAMAICAN 52 mL/min/1.73m2 Critically low >=60 [facility] Comment on above: Performed By: #### B MP #### [facility] [address] [address] [address] Constantin Yepez EGFR-NON AF J[place]ICAN 43 mL/min/1.73m2 Critically low >=60 [facility] Comment on above: Performed By: #### B MP #### [facility] [address] [address] [address] Constantin Yepez Glucose [Mass/Vol] 97 mg/dL Normal 74-106 [facility] Comment on above: Performed By: #### B MP #### [facility] [address] [address] [address] Constantin Yepez Potassium [Moles/Vol] 4.5 mmol/L Normal 3.5-5.1 [facility] Comment on above: Performed By: #### B MP #### [facility] [address] [address] [address] Constantin Yepez Sodium [Moles/Vol] 142 mmol/L Normal 136-145 [facility] Comment on above: Performed By: #### B MP #### [facility] [address] [address] [address] Constantin Yepez Urea nitrogen [Mass/Vol] 30.0 mg/dL Critically high 7.0-18.0 [facility] Comment on above: Performed By: #### B MP #### [facility] [address] [address] [address] Constantin Yepez Urea nitrogen/Creatinine [Mass ratio] 18.5 mg/mg Normal [facility] Comment on above: Performed By: #### B MP #### [facility] [address] [address] [address] Constantin Yepez Arterial Blood Gaseson 06-04 Cr Test PASS Normal [facility] Comment on above: Performed By: #### A BG #### [facility] [address] [place] [address] Undercover Cop: Stevan Kerns MD Body Temp. 37.0 Normal [facility] Comment on above: Performed By: #### A BG #### [facility] [address] [place] [address] Undercover Cop: Stevan Kerns MD HCO3 (Bld) [Moles/Vol] 29.7 mmol/L High 22-26 [facility] Comment on above: Performed By: #### A BG #### [facility] [address] [place] [address] Undercover Cop: Stevan Kerns MD O2 Device/Flow/% O2 Mask [facility] Comment on above: Performed By: #### A BG #### [facility] [address] [place], [facility] Undercover Cop: Stevan Kenrs MD Oxygen (Bld) [Partial pressure] 87.4 mm[Hg] Normal 80-100 [facility] Comment on above: Performed By: #### A BG #### [facility] [address] [place], [place] [id number] Undercover Cop: Stevan Kerns MD Oxygen saturation in Blood 96.1 % Normal 95-98 [facility] Comment on above: Performed By: #### A BG #### [facility] [address] [place], [place] [phone] Undercover Cop: Stevan Kerns MD pCO2 55.2 mmHg High 35-45 [facility] Comment on above: Performed By: #### A BG #### [facility] [address] [place] [address] Undercover Cop: Stevan Kerns MD pH (Bld) 7.348 [pH] Low 7.35-7.45 [facility] Comment on above: Performed By: #### A BG #### [facility] [address] [place] [address] Undercover Cop: Stevan Kerns MD Positive Base Excess 2.6 mmol/L High 0.0-2.0 [facility] Comment on above: Performed By: #### A BG #### [facility] [address] [place], [place] [id number] Undercover Cop: Stevan Kerns MD Pt. Position SUPINE Normal [facility] Comment on above: Performed By: #### A BG #### [facility] [address] [place], [place] [id number] Undercover Cop: Stevan Kerns MD Site Drawn Left Brachial Artery Normal [facility] Comment on above: Performed By: #### A BG #### [facility] [address] [place], [place] [id number] Undercover Cop: Stevan Kerns MD Carboxy Hgb NOT REPORTED Normal 0-5 [facility] Comment on above: Performed By: #### A BG #### [facility] [address] [place], [place] [id number] Undercover Cop: Stevan Kerns MD FIO2 NOT REPORTED Normal [facility] Comment on above: Performed By: #### A BG #### [facility] [address] [place], [place] [id number] Undercover Cop: Stevan Kerns MD Methemoglobin NOT REPORTED Normal 0.0-1.9 [facility] Comment on above: Performed By: #### A BG #### [facility] [address] [place] [address] Undercover Cop: Stevan Kerns MD Mode NOT REPORTED Normal [facility] Comment on above: Performed By: #### A BG #### [facility] [address] [place], [place] [phone] Undercover Cop: Stevan Kerns MD Negative Base Excess NOT REPORTED Normal 0.0-2.0 [facility] Comment on above: Performed By: #### A BG #### [facility] [address] [place] [address] [address] [phone] Undercover Cop: Stevan Kerns MD Notification Time NOT REPORTED Normal [facility] Comment on above: Performed By: #### A BG #### [facility] [address] [place] [address] Dr. [address] [phone] Undercover Cop: Stevan Kerns MD Notification: NOT REPORTED Normal [facility] Comment on above: Performed By: #### A BG #### [address] [place] [address] Undercover Cop: Stevan Kerns MD Oxyhemoglobin NOT REPORTED Normal 95.0-98.0 [facility] Comment on above: Performed By: #### A BG #### [facility] [address] [place] [address] [place] [address] Undercover Cop: Stevan Kerns MD pCO2 Adj'd for Temp NOT REPORTED Normal [facility] Comment on above: Performed By: #### A BG #### [address] [place] [address] Undercover Cop: Stevan Kerns MD PEEP/CPAP NOT REPORTED Normal [facility] Comment on above: Performed By: #### A BG #### [facility] [address] [place] [address] Dr[address] [phone] Undercover Cop: Stevan Kerns MD pH Adjst'd for Temp. NOT REPORTED Normal 7.350-7.450 [facility] Comment on above: Performed By: #### A BG #### [facility] [address] [place] [address] Dr. [address] [phone] Undercover Cop: Stevan Kerns MD pO2 Adjst'd for Temp NOT REPORTED Normal 80.0-100.0 [facility] Comment on above: Performed By: #### A BG #### [facility] [address] [place], [place] [phone] Undercover Cop: Stevan Kerns MD PSV NOT REPORTED Normal [facility] Comment on above: Performed By: #### A BG #### [facility] [address] [place], [place] [phone] Undercover Cop: Stevan Kerns MD Respiratory Rate NOT REPORTED Normal [facility] Comment on above: Performed By: #### A BG #### [facility] [address] [place], [place] [phone] Undercover Cop: Stevan Kerns MD Set Rate NOT REPORTED Normal [facility] Comment on above: Performed By: #### A BG #### [facility] [address] [place], [place] [phone] Undercover Cop: Stevan Kerns MD Text for Respiratory NOT REPORTED Normal [facility] Comment on above: Performed By: #### A BG #### [facility] [address] [place], [place] [phone] Undercover Cop: Stevan Kerns MD Total Hb NOT REPORTED Normal 12.0-16.0 [facility] Comment on above: Performed By: #### A BG #### [facility] [address] [place], [place] [phone] Undercover Cop: Stevan Kerns MD Total Rate NOT REPORTED Normal [facility] Comment on above: Performed By: #### A BG #### [facility] [address] [place], [place] [phone] Undercover Cop: Stevan Kerns MD [place] NOT REPORTED Normal [facility] Comment on above: Performed By: #### A BG #### [facility] [address] [place], [place] [phone] Undercover Cop: Stevan Kerns MD Blood Gas, Arterialon 2020 Cr Test PASS [facility] Carboxyhemoglobin NOT REPORTED 0 - 5 % [facility] Comment on above: FIO2 NOT REPORTED [facility] HCO3 (Bld) [Moles/Vol] 29.7 mmol/L High 22 - 26 mmol/L [facility] Interpretation and review of laboratory results Abnormal [facility] Methemoglobin NOT REPORTED 0.0 - 1.9 % [facility] alth Mode NOT REPORTED [facility] Negative Base Excess, Art NOT REPORTED 0.0 - 2.0 mmol/L [facility] NOTIFICATION NOT REPORTED [facility] NOTIFICATION TIME NOT REPORTED [facility] O2 Device/Flow/% O2 Mask [facility] Oxygen saturation in Blood 96.1 % 95 - 98 % [facility] Oxyhemoglobin NOT REPORTED 95.0 - 98.0 % [facility] pCO2, Art, Temp Adj NOT REPORTED [facility] pCO2, Arterial 55.2 High [facility] Peep/Cpap NOT REPORTED [facility] pH, Art, Temp Adj NOT REPORTED [facility] pH, Arterial 7.348 Low [facility] pO2, Art, Temp Adj NOT REPORTED [facility] pO2, Arterial 87.4 [facility] h Positive Base Excess, Art 2.6 mmol/L High 0.0 - 2.0 mmol/L [facility] PSV NOT REPORTED [facility] Pt Temp 37.0 [facility] Pt. Position SUPINE [facility] Respiratory Rate NOT REPORTED [facility] Sample Site Left Brachial Artery [facility] Set Rate NOT REPORTED [facility] Text for Respiratory NOT REPORTED [facility] Total Hb NOT REPORTED 12.0 - 16.0 g/dl [facility] Total Rate NOT REPORTED [facility] [place] NOT REPORTED [facility] CBC Auto Differentialon 05-08 Absolute Eos # 0.20 [facility] Absolute Immature Granulocyte 0.06 [facility] Absolute Lymph # 3.98 High [facility] alth Absolute Keith # 1.22 [facility] Basophils (Bld) [#/Vol] 0.05 10*3/uL [facility] Basophils/100 WBC (Bld) 0 % 0 - 2 % [facility] Differential Type NOT REPORTED [facility] Eosinophils/100 WBC (Bld) 1 % 1 - 4 % [facility] Hematocrit (Bld) [Volume fraction] 45.3 % 40.7 - 50.3 % [facility] Hemoglobin.gastrointes tinal spec 1 Ql (Stl) 14.7 g/dL 13.0 - 17.0 g/dL [facility] Immature granulocytes/100 WBC (Bld) 0 % 0 [facility] Interpretation and review of laboratory results Abnormal [facility] Lymphocytes/100 WBC (Bld) 25 % 24 - 43 % [facility] MCH (RBC) [Entitic mass] 29.5 pg 25.2 - 33.5 pg [facility] MCHC (RBC) [Mass/Vol] 32.5 g/dL 28.4 - 34.8 g/dL [facility] MCV (RBC) [Entitic vol] 91.0 fL 82.6 - 102.9 fL [facility] Monocytes/100 WBC (Bld) 8 % 3 - 12 % [facility] NRBC Automated 0.0 0.0 per 100 WBC [facility] Platelet distribution width (Bld) [Ratio] 12.6 % 11.8 - 14.4 % [facility] Platelet Estimate NOT REPORTED [facility] Platelet mean volume (Bld) [Entitic vol] 9.3 fL 8.1 - 13.5 fL [facility] Platelets (Bld) [#/Vol] 195 10*3/uL [facility] RBC (Bld) [#/Vol] 4.98 10*6/uL 4.21 - 5.7 7 m/uL [facility] RBC (Bld) [#/Vol] NOT REPORTED [facility] Segmented neutrophils/100 WBC (Bld) 66 % High 36 - 65 % [facility] Segs Absolute 10.73 [facility]ld[facility] [#/Vol] 16.2 10*3/uL High [facility] WBC (Bld) [#/Vol] NOT REPORTED [facility] CBC with Diffon 06-04-2021 Abs. Basophil 0.05 k/uL Normal 0.00-0.20 [facility] Comment on above: Performed By: #### C MPX, TROPI, PT, CDP, MG #### [facility] [address] [place] [address] Undercover Cop: Stevan Kerns MD Abs.Imm.Granulocyte 0.06 k/uL Normal 0.00-0.30 [facility] Comment on above: Performed By: #### C MPX, TROPI, PT, CDP, MG #### [address] [place], [place] [id number] Undercover Cop: Stevan Kerns MD Abs.Neutrophil (Seg) 10.73 k/uL High 1.50-8.10 [facility] Comment on above: Performed By: #### C MPX, TROPI, PT, CDP, MG #### [address] [place], [facility]83 Undercover Cop: Stevan Kerns MD Basophils/100 WBC (Bld) 0 % Normal 0-2 [facility] Comment on above: Performed By: #### C MPX, TROPI, PT, CDP, MG #### [address] [place], [facility]83 Undercover Cop: Stevan Kerns MD Eosinophils (Bld) [#/Vol] 0.20 10*3/uL Normal 0.00-0.44 [facility] Comment on above: Performed By: #### C MPX, TROPI, PT, CDP, MG #### [address] [place], [facility]83 Undercover Cop: Stevan Kerns MD Eosinophils/100 WBC (Bld) 1 % Normal 1-4 [facility] Comment on above: Performed By: #### C MPX, TROPI, PT, CDP, MG #### [address] [place], [facility]83 Undercover Cop: Stevan Kerns MD Erythrocyte distribution width (RBC) [Ratio] 12.6 % Normal 11.8-14.4 [facility] Comment on above: Performed By: #### C MPX, TROPI, PT, CDP, MG #### [address] [place] [address] Undercover Cop: Stevan Kerns MD Hematocrit (Bld) [Volume fraction] 45.3 % Normal 40.7-50.3 [facility] Comment on above: Performed By: #### C MPX, TROPI, PT, CDP, MG #### [facility] [address] [place], [place] [phone] Undercover Cop: Stevan Kerns MD Hemoglobin (Bld) [Mass/Vol] 14.7 g/dL Normal 13.0-17.0 [facility] Comment on above: Performed By: #### C MPX, TROPI, PT, CDP, MG #### [facility] [address] [place] [address] Undercover Cop: Stevan Kerns MD Immature granulocytes/100 WBC (Bld) 0 % Normal 0 [facility] Comment on above: Performed By: #### C MPX, TROPI, PT, CDP, MG #### [address] [place], [facility]83 Undercover Cop: Stevan Kerns MD Lymphocytes (Bld) [#/Vol] 3.98 10*3/uL High 1.10-3.70 [facility] Comment on above: Performed By: #### C MPX, TROPI, PT, CDP, MG #### [address] [place], [facility]83 Undercover Cop: Stevan Kerns MD Lymphocytes/100 WBC (Bld) 25 % Normal 24-43 [facility] Comment on above: Performed By: #### C MPX, TROPI, PT, CDP, MG #### [facility] [address] [place] [address] [place] [address] Undercover Cop: Stevan Kerns MD MCH (RBC) [Entitic mass] 29.5 pg Normal 25.2-33.5 [facility] Comment on above: Performed By: #### C MPX, TROPI, PT, CDP, MG #### [address] [place] [address] Undercover Cop: Stevan Kerns MD MCHC (RBC) [Mass/Vol] 32.5 g/dL Normal 28.4-34.8 [facility] Comment on above: Performed By: #### C MPX, TROPI, PT, CDP, MG #### [address] [place], [place] [phone] Undercover Cop: Stevan Kerns MD MCV (RBC) [Entitic vol] 91.0 fL Normal 82.6-102.9 [facility] Comment on above: Performed By: #### C MPX, TROPI, PT, CDP, MG #### [address] [place] [address] Undercover Cop: Stevan Kerns MD Monocytes (Bld) [#/Vol] 1.22 10*3/uL High 0.10-1.20 [facility] Comment on above: Performed By: #### C MPX, TROPI, PT, CDP, MG #### [address] [place] [address] Undercover Cop: Stevan Kerns MD Monocytes/100 WBC (Bld) 8 % Normal 3-12 [facility] Comment on above: Performed By: #### C MPX, TROPI, PT, CDP, MG #### [address] [place] [address] Undercover Cop: Stevan Kerns MD Neutrophil (Seg) 66 % High 36-65 [facility] Comment on above: Performed By: #### C MPX, TROPI, PT, CDP, MG #### [address] [place] [address] Undercover Cop: Steavn Kerns MD NRBC Automated 0.0 per 100 WBC Normal 0.0 [facility] Comment on above: Performed By: #### C MPX, TROPI, PT, CDP, MG #### [address] [place], [place] [phone] Undercover Cop: Stevan Kerns MD Platelet mean volume (Bld) [Entitic vol] 9.3 fL Normal 8.1-13.5 [facility] Comment on above: Performed By: #### C MPX, TROPI, PT, CDP, MG #### [facility] [address] [place], [place] [phone] Undercover Cop: Stevan Kerns MD Platelets (Bld) [#/Vol] 195 10*3/uL Normal 138-453 [facility] Comment on above: Performed By: #### C MPX, TROPI, PT, CDP, MG #### [facility] [address] [place], [place] [id number] Undercover Cop: Stevan Kerns MD RBC (Bld) [#/Vol] 4.98 10*6/uL Normal 4.21-5.77 [facility] Comment on above: Performed By: #### C MPX, TROPI, PT, CDP, MG #### [address] [place], [place] [id number] Undercover Cop: Stevan Kerns MD WBC (Bld) [#/Vol] 16.2 10*3/uL High 3.5-11.3 [facility] Comment on above: Performed By: #### C MPX, TROPI, PT, CDP, MG #### [facility] [address] [place] [address] Dr. [place], [place] [phone] Undercover Cop: Stevan Kerns MD Auto Diff Performed NOT REPORTED Normal [facility] Comment on above: Performed By: #### C MPX, TROPI, PT, CDP, MG #### [address] [place], [place] [phone] Undercover Cop: Stevan Kerns MD Platelet Comment NOT REPORTED Normal [facility] Comment on above: Performed By: #### C MPX, TROPI, PT, CDP, MG #### [address] [place] [address] Undercover Cop: Stevan Kerns MD RBC morphology finding Nom (Bld) NOT REPORTED Normal [facility] Comment on above: Performed By: #### C MPX, TROPI, PT, CDP, MG #### [facility] [address] [place], [place] [phone] Undercover Cop: Stevan Kerns MD WBC Morphology NOT REPORTED Normal [facility] Comment on above: Performed By: #### C MPX, TROPI, PT, CDP, MG #### [facility] [address] [place] [address] Undercover Cop: Stevan Kerns MD Comp Metabolic Pr/rfx MGon 1 08-04-2020 AST [Catalytic activity/Vol] 28 U/L Normal <40 [facility] Comment on above: Performed By: #### C MPX, TROPI, PT, CDP, MG #### [facility] [address] [place], [place] [phone] Undercover Cop: Stevan Kerns MD Glucose [Mass/Vol] 19 mg/dL Critically low 70-99 [facility] Comment on above: Performed By: #### C MPX, TROPI, PT, CDP, MG #### [address] [place] [address] Undercover Cop: Stevan Kerns MD Potassium [Moles/Vol] 3.4 mmol/L Low 3.7-5.3 [facility] Comment on above: Performed By: #### C MPX, TROPI, PT, CDP, MG #### [facility] [address] [place] [address] Undercover Cop: Stevan Kerns MD (cont.) [facility] Comment on above: Result Comment: Aver age GFR for 60-69 years old: 85 mL/min/1.73sq m Chronic Kidney Disease: <60 mL/min/1.73sq m Kidney failure: <15 mL/min/1.73sq m eGFR calculated using average adult body mass. Additional eGFR calculator available at: http://www.PASSNFLY.66. com/multiple_crcl_2011.htm Performed By: #### C MPX, TROPI, PT, CDP, MG #### [facility] [address] [place], [place] [phone] Undercover Cop: Stevan Kerns MD Albumin [Mass/Vol] 4.5 g/dL Normal 3.5-5.2 [facility] Comment on above: Performed By: #### C MPX, TROPI, PT, CDP, MG #### [facility] [address] [place], [place] [phone] Undercover Cop: Stevan Kerns MD Albumin/Glob Ratio 1.2 Normal 1.0-2.5 [facility] Comment on above: Performed By: #### C MPX, TROPI, PT, CDP, MG #### [facility] [address] [place], [place] [phone] Undercover Cop: Stevan Kerns MD Alkaline Phos 98 U/L Normal 40-129 [facility] Comment on above: Performed By: #### C MPX, TROPI, PT, CDP, MG #### [facility] [address] [place], [place] [phone] Undercover Cop: Stevan Kerns MD ALT [Catalytic activity/Vol] 31 U/L Normal 5-41 [facility] Comment on above: Performed By: #### C MPX, TROPI, PT, CDP, MG #### [facility] [address] [place], [place] [phone] Undercover Cop: Stevan Kerns MD Anion gap [Moles/Vol] 13 mmol/L Normal 9-17 [facility] Comment on above: Performed By: #### C MPX, TROPI, PT, CDP, MG #### [facility] [address] [place], [place] [phone] Undercover Cop: Stevan Kerns MD Bilirubin [Mass/Vol] 0.36 mg/dL Normal 0.3-1.2 [facility] Comment on above: Performed By: #### C MPX, TROPI, PT, CDP, MG #### [facility] [address] [place] [address] Undercover Cop: Stevan Kerns MD BUN/CRE Ratio 19 Normal 9-20 [facility] Comment on above: Performed By: #### C MPX, TROPI, PT, CDP, MG #### [facility] [address] [place], [place] [phone] Undercover Cop: Stevan Kerns MD Calcium [Mass/Vol] 9.4 mg/dL Normal 8.6-10.4 [facility] Comment on above: Performed By: #### C MPX, TROPI, PT, CDP, MG #### [facility] [address] [place] [address] Dr. [place], [place] [phone] Undercover Cop: Stevan Kerns MD Chloride [Moles/Vol] 105 mmol/L Normal 98-107 [facility] Comment on above: Performed By: #### C MPX, TROPI, PT, CDP, MG #### [address] [place], [place] [phone] Undercover Cop: Stevan Kerns MD CO2 [Moles/Vol] 27 mmol/L Normal 20-31 [facility] Comment on above: Performed By: #### C MPX, TROPI, PT, CDP, MG #### [facility] [address] [place] [address] Undercover Cop: Stevan Kerns MD Creatinine [Mass/Vol] 1.78 mg/dL High 0.70-1.20 [facility] Comment on above: Performed By: #### C MPX, TROPI, PT, CDP, MG #### [facility] [address] [place] [address] Undercover Cop: Stevan Kerns MD GFR, Amer 47 mL/min Low >60 [facility] Comment on above: Performed By: #### C MPX, TROPI, PT, CDP, MG #### [facility] [address] [place] [address] Undercover Cop: Stevan Kerns MD GFR,non Amer 38 mL/min Low >60 [facility] Comment on above: Performed By: #### C MPX, TROPI, PT, CDP, MG #### [facility] [address] [place] [address] Undercover Cop: Stevan Kerns MD Protein [Mass/Vol] 8.3 g/dL Normal 6.4-8.3 [facility] Comment on above: Performed By: #### C MPX, TROPI, PT, CDP, MG #### [address] [place], [place] [phone] Undercover Cop: Stevan Kerns MD Sodium [Moles/Vol] 145 mmol/L High 135-144 [facility] Comment on above: Performed By: #### C MPX, TROPI, PT, CDP, MG #### [address] [place] [address] Undercover Cop: Stevan Kerns MD Staging: Normal [facility] Comment on above: Result Comment: Stag e 1: Some kidney damage normal GFR Stage 2: Mild kidney damage GFR 60-89 Stage 3: Moderate kidney damage GFR 30-59 Stage 4: Severe kidney damage GFR 15-29 Stage 5: Severe kidney damage GFR <15 ESRD - chronic treatment by dialysis or transplant Performed By: #### C MPX, TROPI, PT, CDP, MG #### [facility] [address] [place] [address] Undercover Cop: Stevan Kerns MD Urea nitrogen [Mass/Vol] 34 mg/dL High 8-23 [facility] Comment on above: Performed By: #### C MPX, TROPI, PT, CDP, MG #### [facility] [address] [place] [address] Undercover Cop: Stevan Kerns MD Comprehensive Metabolic Pane l w/ Reflex to MGon 06-04-2021 Albumin [Mass/Vol] 4.5 g/dL 3.5 - 5.2 g/dL [facility] Albumin/Globulin [Mass ratio] 1.2 {ratio} [facility] [employer] ALP (Bld) [Catalytic activity/Vol] 98 U/L 40 - 129 U/L [facility] [employer] ALT [Catalytic activity/Vol] 31 U/L 5 - 41 U/L [facility] [employer] Anion gap [Moles/Vol] 13 mmol/L 9 - 17 mmol/L [facility] AST [Catalytic activity/Vol] 28 U/L <40 [facility] Bilirubin [Mass/Vol] 0.36 mg/dL 0.3 - 1 .2 mg/dL [facility] [employer] Calcium [Mass/Vol] 9.4 mg/dL 8.6 - 10. 4 mg/dL [facility] [employer] Chloride [Moles/Vol] 105 mmol/L 98 - 10 7 mmol/L [facility] [employer] CO2 [Moles/Vol] 27 mmol/L 20 - 31 mmol/L [facility] Creatinine [Mass/Vol] 1.78 mg/dL High 0.70 - 1.20 mg/dL [facility] [employer] Free PSA/Total PSA [Mass fraction] 8.3 g/dL 6.4 - 8.3 g/dL [employer] GFR 47 mL/min Low >60 [facility] GFR Non- 38 mL/min Low >60 [facility] Glucose [Mass/Vol] 19 mg/dL Critically low 70 - 99 mg/dL [facility] Interpretation and review of laboratory results Abnormal [facility] Potassium [Moles/Vol] 3.4 mmol/L Low 3.7 - 5.3 mmol/L [facility] [employer] Sodium [Moles/Vol] 145 mmol/L High 135 - 144 mmol/L [facility] Urea nitrogen (BldV) [Mass/Vol] 34 mg/dL High 8 - 23 mg/dL [facility] Urea nitrogen/Creatinine (Bld) [Mass ratio] 19 [facility] Health [facility] Glucose, Whole Bloodon 06-04 Glucose [Mass/Vol] 125 mg/dL High 74 - 100 mg/dL [facility] Interpretation and review of laboratory results Abnormal [facility] Glucose [Mass/Vol] 134 mg/dL High 74 - 100 mg/dL [facility] Interpretation and review of laboratory results Abnormal [facility] Glucose [Mass/Vol] 97 mg/dL 74 - 100 mg/dL [facility] Glucose [Mass/Vol] 60 mg/dL Low 74 - 100 mg/dL [facility] Interpretation and review of laboratory results Abnormal [facility] Glucose [Mass/Vol] 93 mg/dL 74 - 100 mg/dL [facility] Laboratory - Chemistry and C hemistry - challengeon 06-04-2021 GFR/1.73 sq M.predicted MDRD (S/P/Bld) [Vol rate/Area] [facility] Comment on above: Average GFR for 60-6 9 years old: 85 mL/min/1.73sq m Chronic Kidney Disease: <60 mL/min/1.73sq m Kidney failure: <15 mL/min/1.73sq m eGFR calculated using average adult body mass. Additional eGFR calculator available at: http://www.PASSNFLY.66. com/multiple_crcl_2012.htm Stage 1: Some kidney damage normal GFR Stage 2: Mild kidney damage GFR 60-89 Stage 3: Moderate kidney damage GFR 30-59 Stage 4: Severe kidney damage GFR 15-29 Stage 5: Severe kidney damage GFR <15 ESRD - chronic treatment by dialysis or transplant Lactic Acidon 06-04-2021 Lactate [Moles/Vol] 1.0 mmol/L Normal 0.5-2.2 [facility] Comment on above: Performed By: #### L AC #### [facility] [address] [place] [address] Undercover Cop: Stevan Kerns MD Lactate [Moles/Vol] 1 mmol/L 0.5 - 2. 2 mmol/L [facility] Magnesiumon 06-04-2021 Magnesium [Mass/Vol] 1.8 mg/dL Normal 1.6-2.6 [facility] Comment on above: Performed By: #### C MPX, TROPI, PT, CDP, MG #### [facility] [address] [place] [address] Undercover Cop: Stevan Kerns MD Magnesium [Mass/Vol] 1.8 mg/dL 1.6 - 2 .6 mg/dL [facility] Microscopic Urinalysison - [facility] Amorphous, UA NOT REPORTED None [facility] B[facility], UA NOT REPORTED None [facility] th Casts UA NOT REPORTED /LPF [facility] Crystals, UA NOT REPORTED None /HPF [facility] th Epithelial Cells UA 0 TO 2 [facility] Mucus, UA NOT REPORTED None [facility] Other Observations UA NOT REPORTED NOT REQ. M [facility] RBC, UA 0 TO 2 [facility] Renal Epithelial, UA NOT REPORTED 0 /HPF [facility] Trichomonas, UA NOT REPORTED None [facility] ealth WBC, UA 0 TO 2 [facility] Yeast, UA NOT REPORTED None [facility] POCT glucoseOrdered By: Alesha Gonzalez on 06-04-2021 Glucose [Mass/Vol] 60 mg/dL [facility] Interpretation and review of laboratory results Normal [facility] PTon 06-04-2021 INR Coag (PPP) [Relative time] 0.9 {INR} Normal [facility] Comment on above: Result Comment: Non-therapeutic Range: INR = 0.9-1.2 Therapeutic Range: Moderate Anticoagulant Intensity: INR = 2.0-3.0 High Anticoagulant Intensity: INR = 2.5-3.5 Performed By: #### C MPX, TROPI, PT, CDP, MG #### [facility] [address] [place] [address] Undercover Cop: Stevan Kerns MD PT Coag (PPP) [Time] 12.4 s Normal 11.5-14.2 [facility] Comment on above: Performed By: #### C MPX, TROPI, PT, CDP, MG #### [facility] [address] [place] [address] Undercover Cop: Stevan Kerns MD Protime-INRon 06-04-2021 INR Coag (Bld) [Relative time] 0.9 {INR} [facility] Comment on above: Non-therapeutic Range: INR = 0.9-1.2 Therapeutic Range: Moderate Anticoagulant Intensity: INR = 2.0-3.0 High Anticoagulant Intensity: INR = 2.5-3.5 PT Coag (PPP) [Time] 12.4 s [facility] Troponinon 06-04-2021 Troponin, High Sens 13 ng/L Normal 0-22 [facility] Comment on above: Result Comment: High Sensitivity Troponin values cannot be compared with other Troponin methodologies. Patients with high levels of Biotin oral intake (i.e >5mg/day) may have falsely decreased Troponin levels. Samples collected within 8 hours of biotin intake may require additional information for diagnosis. Performed By: #### C MPX, TROPI, PT, CDP, MG #### [facility] [address] [place] [address] [place] [address] Undercover Cop: Stevan Kerns MD Troponin Interp. NOT REPORTED Normal [facility] Comment on above: Performed By: #### C MPX, TROPI, PT, CDP, MG #### [facility] [address] [place] [address] [place] [address] Undercover Cop: Stevan Kerns MD Troponin T NOT REPORTED Normal <0.03 [facility] Comment on above: Performed By: #### C MPX, TROPI, PT, CDP, MG #### [facility] [address] [place] [address] [place] [address] Undercover Cop: Stevan Kerns MD Troponin Interp NOT REPORTED [facility] Troponin, High Sensitivity 13 ng/L 0 - 22 ng/L [facility] Comment on above: High Sensitivity Troponin values cannot be compared with other Troponin methodologies. Patients with high levels of Biotin oral intake (i.e >5mg/day) may have falsely decreased Troponin levels. Samples collected within 8 hours of biotin intake may require additional information for diagnosis. [facility] Urinalysis, Routineon 2020 Bilirubin, SemiQt,Ur Negative Normal NEG [facility] Comment on above: Performed By: #### U MICAO, UA #### [facility] [address] [place], [place] [phone] Undercover Cop: Stevan Kerns MD Blood, Urine 1+ Abnormal NEG [facility] Comment on above: Performed By: #### U MICAO, UA #### [facility] [address] [place], [place] [phone] Undercover Cop: Stevan Kerns MD Clarity (U) Clear Normal CLEAR [facility] Comment on above: Performed By: #### U MICAO, UA #### [facility] [address] [place], [place] [phone] Undercover Cop: Stevan Kerns MD Color (U) Yellow Normal YEL [facility] Comment on above: Performed By: #### U MICAO, UA #### [facility] [address] [place] [address] Dr. [place], [place] [phone] Undercover Cop: Stevan Kerns MD Glucose Ql (U) Negative Normal NEG [facility] in [facility] Comment on above: Performed By: #### U MICAO, UA #### [address] [place], [place] [phone] Undercover Cop: Stevan Kerns MD Ketones Ql (U) Negative Normal NEG [facility] in [facility] Comment on above: Performed By: #### U MICAO, UA #### [facility] [address] [place], [place] [phone] Undercover Cop: Stevan Kerns MD Leukocyte esterase Test strip Ql (U) Negative Normal NEG [facility] Comment on above: Performed By: #### U MICAO, UA #### [facility] [address] [place], [place] [phone] Undercover Cop: Stevan Kerns MD Nitrite,Ur Negative Normal NEG [facility] Comment on above: Performed By: #### U MICAO, UA #### [facility] [address] [place] [address] Dr. [place], [place] [phone] Undercover Cop: Stevan Kerns MD PH,Ur 5.5 Normal 5.0-9.0 [facility] Comment on above: Performed By: #### U MICAO, UA #### [facility] [address] [place] [address] Dr. [place], [place] [phone] Undercover Cop: Stevan Kerns MD Protein Ql (U) 2+ Abnormal NEG [facility] in Hospital Comment on above: Performed By: #### U MICAO, UA #### [facility] [address] [place] [address] Dr. [place], [place] [phone] Undercover Cop: Stevan Kerns MD Spec. [place],Ur >1.030 High 1.010-1.020 [facility] Comment on above: Performed By: #### U MICAO, UA #### [facility] [address] [place] [address] Dr. [place], [facility] Undercover Cop: Stevan Kerns MD Urobilinogen,Ur Normal Normal NORM [facility] Comment on above: Performed By: #### U MICAO, UA #### [address] [place], [place] [phone] Undercover Cop: Stevan Kerns MD Comment NOT REPORTED Normal [facility] Comment on above: Performed By: #### U MICAO, UA #### [facility] [address] [place] [address] Dr. [place], [place] [phone] Undercover Cop: Stevan Kerns MD Urinalysis, reflex to micros copicon 06-04-2021 Bilirubin Urine Negative NEGATIVE [facility] Color, UA Yellow Yellow [facility] Glucose, Ur Negative NEGATIVE [facility] Interpretation and review of laboratory results Abnormal [facility] Ketones Ql (U) Negative NEGATIVE [facility] Leukocyte esterase Test strip Ql (U) Negative NEGATIVE [facility] Nitrite, Urine Negative NEGATIVE [facility] pH, UA 5.5 [facility] Protein, UA 2+ Abnormal NEGATIVE [facility] Specific [place], UA >1.030 High [facility] Turbidity UA Clear Clear [facility] Urinalysis Comments NOT REPORTED [facility] Urine Hgb 1+ Abnormal NEGATIVE [facility] Urobilinogen, Urine Normal Normal [facility] Urinalysis,Microon 1 ----- Normal [facility] Comment on above: Performed By: #### U KARINO, UA #### [facility] [address] [place] [address] Undercover Cop: Stevan Kerns MD Epithelial cells LM Ql (Urine sed) 0 TO 2 Normal 0-5 [facility] Comment on above: Performed By: #### U KARINO, UA #### [facility] [address] [place], [place] [phone] Undercover Cop: Stevan Kerns MD Urine RBC's 0 TO 2 Normal 0-2 [facility] Comment on above: Performed By: #### U KARINO, UA #### [facility] [address] [place], [place] [phone] Undercover Cop: Stevan Kerns MD Urine WBC's 0 TO [address] Comment on above: Performed By: #### U KARINO, UA #### [address] [place], [place] [phone] Undercover Cop: Stevan Kerns MD Amorphous sediment LM Ql (Urine sed) NOT REPORTED Normal [facility] Comment on above: Performed By: #### U MICAO, UA #### [facility] [address] [place] [address] [place] [address] Undercover Cop: Stevan Kerns MD Bacteria NOT REPORTED Normal [facility] Comment on above: Performed By: #### U MICAO, UA #### [facility] [address] [place] [address] Undercover Cop: Stevan Kerns MD Casts NOT REPORTED Normal [facility] Comment on above: Performed By: #### U KARINO, UA #### [facility] [address] [place] [address] Undercover Cop: Stevan Kerns MD Crystals LM Nom (Urine sed) NOT REPORTED Normal [facility] Comment on above: Performed By: #### U MICAO, UA #### [facility] [address] [place] [address] Undercover Cop: Stevan Kerns MD Epithelial, Renal NOT REPORTED Normal 0 [facility] Comment on above: Performed By: #### U MICAO, UA #### [facility] [address] [place] [address] Undercover Cop: Stevan Kerns MD Mucus Strands NOT REPORTED Normal [facility] Comment on above: Performed By: #### U MICAO, UA #### [facility] [address] [place] [address] Undercover Cop: Stevan Kerns MD Other Observations NOT REPORTED Normal NREQ [facility] Comment on above: Performed By: #### U MICAO, UA #### [facility] [address] [place] [address] Undercover Cop: Stevan Kerns MD Trichomonas NOT REPORTED Normal NONE [facility] Comment on above: Performed By: #### U MICAO, UA #### [facility] [address] [place] [address] Undercover Cop: Stevan Kerns MD Yeast NOT REPORTED Normal [facility] Comment on above: Performed By: #### U MICAO, UA #### [facility] [address] [place], [place] [phone] Undercover Cop: Stevan Kerns MD ARTERIAL BLOOD GAS W/COOXon 06-15-2019 BASE EXCESS 15 mmol/L High -2-3 [facility] Comment on above: Order Comment: No: D o not add to previous draw Performed By: #### 4 1000, 43464, 59179, 94463 #### [facility] [address] [place] [address], [facility] COHB 2.5 % High 0.0-1.5 [facility] Comment on above: Order Comment: No: D o not add to previous draw Performed By: #### 4 1000, 43678, 10045, 15117 #### [facility] [address] [place] [address], [facility] DELIVERY SYSTEMS RA Normal [facility] Comment on above: Order Comment: No: D o not add to previous draw Performed By: #### 4 1000, 13951, 34174, 67961 #### [facility] [address] [place] [address], [facility] HCO3 (Bld) [Moles/Vol] 42 mmol/L Critically high 21-28 [facility] Comment on above: Order Comment: No: D o not add to previous draw Performed By: #### 4 1000, 20066, 89761, 73275 #### [facility] [address] [place] [address], [facility] METHB 1.2 % Normal 0.0-1.5 [facility] Comment on above: Order Comment: No: D o not add to previous draw Performed By: #### 4 1000, 31491, 89667, 63450 #### [facility] [address] [place] [address], [facility] MODALITY RA Normal [facility] Comment on above: Order Comment: No: D o not add to previous draw Performed By: #### 4 1000, 81770, 15561, 89991 #### [facility] [address] [place] [address], [facility] Oxygen (Bld) [Partial pressure] 49 mm[Hg] Critically low 83-108 [facility] Comment on above: Order Comment: No: D o not add to previous draw Performed By: #### 4 1000, 85516, 50804, 01329 #### [facility] [address] [place] [address], [facility] Oxygen saturation in Blood 87.3 % Critically low 94.0-97.0 [facility] Comment on above: Order Comment: No: D o not add to previous draw Performed By: #### 4 1000, 79582, 27772, 06289 #### [facility] [address] [place] [address], [facility] PCO2 60 mmHg Critically high 35-45 [facility] Comment on above: Order Comment: No: D o not add to previous draw Performed By: #### 4 1000, 67261, 98433, 85089 #### [facility] [address] [place] [address], [facility] pH (Bld) 7.45 [pH] Normal 7.35-7.45 [facility] Comment on above: Order Comment: No: D o not add to previous draw Performed By: #### 4 1000, 91174, 11945, 20838 #### [facility] [address] [place] [address], [facility] THB 14.2 g/dL Normal 12.0-16.3 [facility] Comment on above: Order Comment: No: D o not add to previous draw Performed By: #### 4 1000, 02740, 11468, 79575 #### [facility] [address] [place] [address], [facility] BASIC METABOLIC PANELon 12-1 -2018 Calcium [Mass/Vol] 9.0 mg/dL Normal 8.6-10.3 [facility] Comment on above: Order Comment: No: D o not add to previous draw Performed By: #### 4 1000, 05944, 00262, 59886 #### [facility] [address] [place] [address], [facility] Chloride [Moles/Vol] 93 mmol/L Low 98-107 [facility] Comment on above: Order Comment: No: D o not add to previous draw Performed By: #### 4 1000, 37367, 19638, 14749 #### [facility] [address] [place] [address], [place] CO2 [Moles/Vol] 36 mmol/L High 21-31 [facility] Comment on above: Order Comment: No: D o not add to previous draw Performed By: #### 4 1000, 18428, 02634, 42835 #### [facility] [address] [place] [address], [facility] Creatinine [Mass/Vol] 1.30 mg/dL Normal 0.70-1.30 [facility] Comment on above: Order Comment: No: D o not add to previous draw Performed By: #### 4 1000, 78742, 44755, 54078 #### [facility] [address] [place] [address], [facility] GFR/1.73 sq M predicted among blacks MDRD (S/P/Bld) [Vol rate/Area] mL/min/{1.73_m2} Normal >60 [facility] Comment on above: Order Comment: No: D o not add to previous draw Performed By: #### 4 1000, 35474, 33492, 50808 #### [facility] [address] [place] [address], [place] GFR/1.73 sq M predicted among non-blacks MDRD (S/P/Bld) [Vol rate/Area] 56 ml/min/1.73sq m Abnormal >60 [facility] Comment on above: Order Comment: No: D o not add to previous draw Performed By: #### 4 1000, 08670, 18780, 98196 #### [facility] [address] [place] [address], [place] Glucose [Mass/Vol] 147 mg/dL High 70-100 [facility] Comment on above: Order Comment: No: D o not add to previous draw Performed By: #### 4 1000, 99829, 97950, 16193 #### [facility] [address] [place] [address], [place] Potassium [Moles/Vol] 4.2 mmol/L Normal 3.5-5.1 [facility] Comment on above: Order Comment: No: D o not add to previous draw Performed By: #### 4 1000, 36298, 27694, 63389 #### [facility] [address] [place] [address], [place] Sodium [Moles/Vol] 136 mmol/L Normal 136-145 [facility] Comment on above: Order Comment: No: D o not add to previous draw Performed By: #### 4 1000, 50450, 22034, 90990 #### [facility] [address] [place] [address], [place] Urea nitrogen [Mass/Vol] 31 mg/dL High 7-25 [facility] Comment on above: Order Comment: No: D o not add to previous draw Performed By: #### 4 999, 82843, 53682, 08122 #### [facility] [address] [place] [address], [place] MAGNESIUM BLOODon 06-15-2019 Magnesium [Mass/Vol] 2.0 mg/dL Normal 1.9-2.7 [facility] Comment on above: Order Comment: No: D o not add to previous draw Performed By: #### 4 999, 70880, 43809, 84982 #### [facility] [address] [place] [address], [place] POC GLUCOSE LABon 06-15-2019 Glucose [Mass/Vol] 156 mg/dL High 70-100 [facility] Comment on above: Performed By: #### 4 1000, 39101, 41891, 95028 #### [facility] [address] [place] [address], [place] Glucose [Mass/Vol] 220 mg/dL High 70-100 [facility] Comment on above: Performed By: #### 4 1000, 68362, 50877, 23859 #### [facility] [address] [place] [address], [place] Glucose [Mass/Vol] 138 mg/dL High 70-100 [facility] Comment on above: Performed By: #### 4 1000, 18245, 73884, 71796 #### [facility] [address] [place] [address], [place] BASIC METABOLIC PANELon 12-0 Calcium [Mass/Vol] 8.9 mg/dL Normal 8.6-10.3 [facility] Comment on above: Order Comment: No: D o not add to previous draw Performed By: #### 4 1000, 22081, 20675, 23375 #### [facility] [address] [place] [address], [place] Chloride [Moles/Vol] 95 mmol/L Low 98-107 [facility] Comment on above: Order Comment: No: D o not add to previous draw Performed By: #### 4 1000, 03566, 13419, 03091 #### [facility] [address] [place] [address], [place] CO2 [Moles/Vol] 35 mmol/L High 21-31 [facility] Comment on above: Order Comment: No: D o not add to previous draw Performed By: #### 4 1000, 87144, 22998, 74042 #### [facility] [address] [place] [address], [place] Creatinine [Mass/Vol] 1.35 mg/dL High 0.70-1.30 [facility] Comment on above: Order Comment: No: D o not add to previous draw Performed By: #### 4 1000, 08887, 10432, 25431 #### [facility] [address] [place] [address], [place] GFR/1.73 sq M predicted among blacks MDRD (S/P/Bld) [Vol rate/Area] mL/min/{1.73_m2} Normal >60 [facility] Comment on above: Order Comment: No: D o not add to previous draw Performed By: #### 4 1000, 12164, 39468, 46670 #### [facility] [address] [place] [address], [place] GFR/1.73 sq M predicted among non-blacks MDRD (S/P/Bld) [Vol rate/Area] 53 ml/min/1.73sq m Abnormal >60 [facility] Comment on above: Order Comment: No: D o not add to previous draw Performed By: #### 4 1000, 03974, 49079, 13603 #### [facility] [address] [place] [address], [place] Glucose [Mass/Vol] 172 mg/dL High 70-100 [facility] Comment on above: Order Comment: No: D o not add to previous draw Performed By: #### 4 1000, 10407, 82846, 48692 #### [facility] [address] [place] [address], [place] Potassium [Moles/Vol] 4.0 mmol/L Normal 3.5-5.1 [facility] Comment on above: Order Comment: No: D o not add to previous draw Performed By: #### 4 999, 50853, 56009, 12225 #### [facility] [address] [place] [address], [place] Sodium [Moles/Vol] 139 mmol/L Normal 136-145 [facility] Comment on above: Order Comment: No: D o not add to previous draw Performed By: #### 4 1000, 50916, 33801, 82805 #### [facility] [address] [place] [address], [place] Urea nitrogen [Mass/Vol] 30 mg/dL High 7-25 [facility] Comment on above: Order Comment: No: D o not add to previous draw Performed By: #### 4 1000, 84215, 23233, 80777 #### [facility] [address] [place] [address], [facility] CBC W/DIFFon 06-14-2019 ABS BASOPHILS 0.0 10*3/uL Normal 0.0-0.2 [facility] Comment on above: Order Comment: No: D o not add to previous draw Performed By: #### 4 1000, 39723, 56765, 06308 #### [facility] [address] ABS IMM GRANS 0.0 10*3/uL Normal 0.0-0.2 [facility] Comment on above: Order Comment: No: D o not add to previous draw Performed By: #### 4 1000, 30945, 71414, 11923 #### [facility] [address] ABS NEUTROPHILS 5.7 10*3/uL Normal 1.6-7.6 [facility] Comment on above: Order Comment: No: D o not add to previous draw Performed By: #### 4 1000, 72529, 04387, 84860 #### [facility] [address] [place] [address], [facility] Basophils/100 WBC (Bld) 0.2 % Normal 0.0-1.0 [facility] Comment on above: Order Comment: No: D o not add to previous draw Performed By: #### 4 1000, 64494, 64407, 57669 #### [facility] [address] [place] [address], [facility] Eosinophils (Bld) [#/Vol] 0.2 10*3/uL Normal 0.0-0.5 [facility] Comment on above: Order Comment: No: D o not add to previous draw Performed By: #### 4 1000, 36792, 82028, 07586 #### [facility] [address] [place] [address], [facility] Eosinophils/100 WBC (Bld) 1.8 % Normal 0.0-6.0 [facility] Comment on above: Order Comment: No: D o not add to previous draw Performed By: #### 4 1000, 84427, 73080, 50380 #### [facility] [address] [place] [address], [facility] Erythrocyte distribution width (RBC) [Ratio] 13.3 % Normal 11.5-15.0 [facility] Comment on above: Order Comment: No: D o not add to previous draw Performed By: #### 4 1000, 70305, 61053, 99824 #### [facility] [address] [facility] [address], [facility] Hematocrit (Bld) [Volume fraction] 44.2 % Normal 39.0-50.0 [facility] Comment on above: Order Comment: No: D o not add to previous draw Performed By: #### 4 1000, 67920, 60997, 79913 #### [facility] [address] [facility] [address], [facility] Hemoglobin (Bld) [Mass/Vol] 13.8 g/dL Normal 13.0-17.0 [facility] Comment on above: Order Comment: No: D o not add to previous draw Performed By: #### 4 1000, 21126, 60320, 27655 #### [facility] [address] [facility] [address], [facility] IMMATURE GRANS 0.4 % Normal 0.0-1.0 [facility] Comment on above: Order Comment: No: D o not add to previous draw Performed By: #### 4 1000, 55961, 75588, 82283 #### [facility] [address] [place] [address], [facility] Lymphocytes (Bld) [#/Vol] 1.6 10*3/uL Normal 1.2-4.0 [facility] Comment on above: Order Comment: No: D o not add to previous draw Performed By: #### 4 1000, 65877, 72243, 56177 #### [facility] [address] [place] [address], [facility] Lymphocytes/100 WBC (Bld) 19.6 % Low 20.0-45.0 [facility] Comment on above: Order Comment: No: D o not add to previous draw Performed By: #### 4 1000, 47483, 32171, 13605 #### [facility] [address] [facility] [place] [address], [facility] MCH (RBC) [Entitic mass] 29.1 pg Normal 27.0-33.0 [facility] Comment on above: Order Comment: No: D o not add to previous draw Performed By: #### 4 1000, 25392, 32424, 57972 #### [facility] [address] [place] [address], [facility] MCHC (RBC) [Mass/Vol] 31.2 g/dL Low 32.0-35.0 [facility] Comment on above: Order Comment: No: D o not add to previous draw Performed By: #### 4 1000, 94449, 69572, 18305 #### [facility] [address] [place] [address], [facility] MCV (RBC) [Entitic vol] 93.2 fL Normal 82.0-98.0 [facility] Comment on above: Order Comment: No: D o not add to previous draw Performed By: #### 4 1000, 96944, 12636, 73233 #### [facility] [address] [place] [address], [facility] Monocytes (Bld) [#/Vol] 0.6 10*3/uL Normal 0.1-1.0 [facility] Comment on above: Order Comment: No: D o not add to previous draw Performed By: #### 4 1000, 67081, 53065, 57984 #### [facility] [address] [facility] [address], [facility] MONOS 7.7 % Normal 5.0-12.0 [facility] Comment on above: Order Comment: No: D o not add to previous draw Performed By: #### 4 1000, 68525, 47162, 99767 #### [facility] [address] [place] [address], [facility] Neutrophils/100 WBC (Bld) 70.3 % Normal 40.0-72.0 [facility] Comment on above: Order Comment: No: D o not add to previous draw Performed By: #### 4 1000, 49133, 44003, 79454 #### [facility] [address] [facility] [address], [facility] Nucleated RBC/100 WBC (Bld) [Ratio] 0 % Normal 0-0 [facility] Comment on above: Order Comment: No: D o not add to previous draw Performed By: #### 4 1000, 44513, 35684, 88518 #### [facility] [address] [facility] [place] [address], [facility] PLAT CNT 157 10*3/uL Normal 150-400 [facility] Comment on above: Order Comment: No: D o not add to previous draw Performed By: #### 4 1000, 66562, 27051, 51832 #### [facility] [address] [place] [address], [facility] RBC (Bld) [#/Vol] 4.74 10*6/uL Normal 4.20-5.70 [facility] Comment on above: Order Comment: No: D o not add to previous draw Performed By: #### 4 1000, 04809, 59629, 36009 #### [facility] [address] [place] [address], [place] WBC (Bld) [#/Vol] 8.16 10*3/uL Normal 4.00-10.60 [facility] Comment on above: Order Comment: No: D o not add to previous draw Performed By: #### 4 1000, 37229, 48532, 58209 #### [facility] [address] [place] [address], [facility] Cardiovascular Lab Reporton 06-14-2019 Cardiovascular Lab Report [facility] MR #: [id number] Department of Physician: Reema Olivarez MD Division of Service Date: 06/14/2019 Cardiology Birthdate: 1955 Adult Cardiovascular Room #: [id number] [facility] [address] 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 INDICATIONS: This is a 63-year-old man with [...] The patient was also notified that a cattle dipper will be assisting during the course of [...] elevated wedge pressure at 17 mmHg and [id number] elevation in his right-sided pressures. His RA [...] P/Reema Olivarez MD Date Trans: 06/14/2019 01:05 P/anselmo [id number] cc: Josh Pro D.O. [id number] [place] [id number] Normal [facility] MAGNESIUM BLOODon 06-14-2019 Magnesium [Mass/Vol] 2.0 mg/dL Normal 1.9-2.7 [facility] Comment on above: Order Comment: No: D o not add to previous draw Performed By: #### 4 1000, 64381, 91897, 03475 #### [facility] [address] [place] [address], [place] POC GLUCOSE LABon 06-14-2019 Glucose [Mass/Vol] 305 mg/dL High 70-100 [facility] Comment on above: Performed By: #### 4 1000, 81365, 35316, 32810 #### [facility] [address] [place] [address], [place] Glucose [Mass/Vol] 299 mg/dL High 70-100 [facility] Comment on above: Performed By: #### 4 1000, 70957, 56952, 80288 #### [facility] [address] [place] [address], [place] Glucose [Mass/Vol] 177 mg/dL High 70-100 [facility] Comment on above: Performed By: #### 4 1000, 44784, 78954, 31204 #### [facility] [address] [place] [address], [place] Glucose [Mass/Vol] 194 mg/dL High 70-100 [facility] Comment on above: Performed By: #### 4 1000, 51310, 91137, 56922 #### [facility] [address] [place] [address], [place] Glucose [Mass/Vol] 163 mg/dL High 70-100 [facility] Comment on above: Performed By: #### 4 1000, 91317, 27265, 86916 #### [facility] [address] [place] [address], [place] BASIC METABOLIC PANELon 12-0 Calcium [Mass/Vol] 9.3 mg/dL Normal 8.6-10.3 [facility] Comment on above: Order Comment: No: D o not add to previous draw Performed By: #### 4 1000, 56279, 69220, 32662 #### [facility] [address] [place] [address], [facility] Chloride [Moles/Vol] 98 mmol/L Normal 98-107 [facility] Comment on above: Order Comment: No: D o not add to previous draw Performed By: #### 4 1000, 62248, 80930, 54881 #### [facility] [address] [place] [address], [place] CO2 [Moles/Vol] 39 mmol/L High 21-31 [facility] Comment on above: Order Comment: No: D o not add to previous draw Performed By: #### 4 1000, 08341, 39110, 74318 #### [facility] [address] [place] [address], [facility] Creatinine [Mass/Vol] 1.35 mg/dL High 0.70-1.30 [facility] Comment on above: Order Comment: No: D o not add to previous draw Performed By: #### 4 1000, 33761, 04485, 17157 #### [facility] [address] [place] [address], [place] GFR/1.73 sq M predicted among blacks MDRD (S/P/Bld) [Vol rate/Area] mL/min/{1.73_m2} Normal >60 [facility] Comment on above: Order Comment: No: D o not add to previous draw Performed By: #### 4 1000, 80609, 81667, 40027 #### [facility] [address] [place] [address], [place] GFR/1.73 sq M predicted among non-blacks MDRD (S/P/Bld) [Vol rate/Area] 53 ml/min/1.73sq m Abnormal >60 [facility] Comment on above: Order Comment: No: D o not add to previous draw Performed By: #### 4 1000, 84207, 87630, 50386 #### [facility] [address] [place] [address], [place] Glucose [Mass/Vol] 90 mg/dL Normal 70-100 [facility] Comment on above: Order Comment: No: D o not add to previous draw Performed By: #### 4 1000, 91247, 46342, 40500 #### [facility] [address] [place] [address], [facility] Potassium [Moles/Vol] 3.8 mmol/L Normal 3.5-5.1 [facility] Comment on above: Order Comment: No: D o not add to previous draw Performed By: #### 4 1000, 19927, 19604, 43635 #### [facility] [address] Sodium [Moles/Vol] 143 mmol/L Normal 136-145 [facility] Comment on above: Order Comment: No: D o not add to previous draw Performed By: #### 4 999, 34343, 20326, 21617 #### [facility] [address] Urea nitrogen [Mass/Vol] 28 mg/dL High 7-25 [facility] Comment on above: Order Comment: No: D o not add to previous draw Performed By: #### 4 999, 95892, 89446, 71590 #### [facility] [address] CBC W/DIFFon 06-13-2019 ABS BASOPHILS 0.0 10*3/uL Normal 0.0-0.2 [facility] Comment on above: Order Comment: No: D o not add to previous draw Performed By: #### 4 1000, 84698, 45725, 41852 #### [facility] [address] [place] [address], [facility] ABS IMM GRANS 0.0 10*3/uL Normal 0.0-0.2 [facility] Comment on above: Order Comment: No: D o not add to previous draw Performed By: #### 4 1000, 11759, 73583, 31477 #### [facility] [address] [place] [address], [facility] ABS NEUTROPHILS 5.6 10*3/uL Normal 1.6-7.6 [facility] Comment on above: Order Comment: No: D o not add to previous draw Performed By: #### 4 1000, 24046, 99759, 22240 #### [facility] [address] [place] [address], [facility] Basophils/100 WBC (Bld) 0.2 % Normal 0.0-1.0 [facility] Comment on above: Order Comment: No: D o not add to previous draw Performed By: #### 4 1000, 48564, 10123, 48681 #### [facility] [address] [place] [address], [facility] Eosinophils (Bld) [#/Vol] 0.2 10*3/uL Normal 0.0-0.5 [facility] Comment on above: Order Comment: No: D o not add to previous draw Performed By: #### 4 999, 43558, 43458, 41506 #### [facility] [address] [facility] [address], [facility] Eosinophils/100 WBC (Bld) 2.4 % Normal 0.0-6.0 [facility] Comment on above: Order Comment: No: D o not add to previous draw Performed By: #### 4 999, 14175, 91303, 51536 #### [facility] [address] [facility] [place] [address], [place] Erythrocyte distribution width (RBC) [Ratio] 13.5 % Normal 11.5-15.0 [facility] Comment on above: Order Comment: No: D o not add to previous draw Performed By: #### 4 1000, 82924, 48766, 14540 #### [facility] [address] [place] [address], [place] Hematocrit (Bld) [Volume fraction] 44.3 % Normal 39.0-50.0 [facility] Comment on above: Order Comment: No: D o not add to previous draw Performed By: #### 4 1000, 16502, 11537, 36678 #### [facility] [address] [facility] [address], [facility] Hemoglobin (Bld) [Mass/Vol] 14.0 g/dL Normal 13.0-17.0 [facility] Comment on above: Order Comment: No: D o not add to previous draw Performed By: #### 4 1000, 24169, 48330, 68980 #### [facility] [address] [facility] [address], [facility] IMMATURE GRANS 0.4 % Normal 0.0-1.0 [facility] Comment on above: Order Comment: No: D o not add to previous draw Performed By: #### 4 1000, 11083, 44994, 30768 #### [facility] [address] [place] [address], [facility] Lymphocytes (Bld) [#/Vol] 1.6 10*3/uL Normal 1.2-4.0 [facility] Comment on above: Order Comment: No: D o not add to previous draw Performed By: #### 4 1000, 52595, 60509, 65920 #### [facility] [address] [place] [address], [facility] Lymphocytes/100 WBC (Bld) 19.7 % Low 20.0-45.0 [facility] Comment on above: Order Comment: No: D o not add to previous draw Performed By: #### 4 1000, 28269, 64730, 07581 #### [facility] [address] [place] [address], [place] MCH (RBC) [Entitic mass] 29.3 pg Normal 27.0-33.0 [facility] Comment on above: Order Comment: No: D o not add to previous draw Performed By: #### 4 1000, 70502, 50934, 30001 #### [facility] [address] [place] [address], [facility] MCHC (RBC) [Mass/Vol] 31.6 g/dL Low 32.0-35.0 [facility] Comment on above: Order Comment: No: D o not add to previous draw Performed By: #### 4 1000, 61733, 68257, 98113 #### [facility] [address] [place] [address], [facility] MCV (RBC) [Entitic vol] 92.7 fL Normal 82.0-98.0 [facility] Comment on above: Order Comment: No: D o not add to previous draw Performed By: #### 4 1000, 16500, 55229, 05469 #### [facility] [address] [place] [address], [facility] Monocytes (Bld) [#/Vol] 0.6 10*3/uL Normal 0.1-1.0 [facility] Comment on above: Order Comment: No: D o not add to previous draw Performed By: #### 4 1000, 69370, 41234, 15125 #### [facility] [address] [place] [address], [facility] MONOS 7.8 % Normal 5.0-12.0 [facility] Comment on above: Order Comment: No: D o not add to previous draw Performed By: #### 4 1000, 41320, 22536, 49023 #### [facility] [address] [facility] [address], [facility] Neutrophils/100 WBC (Bld) 69.5 % Normal 40.0-72.0 [facility] Comment on above: Order Comment: No: D o not add to previous draw Performed By: #### 4 1000, 56777, 87031, 18558 #### [facility] [address] [place] [address], [facility] Nucleated RBC/100 WBC (Bld) [Ratio] 0 % Normal 0-0 [facility] Comment on above: Order Comment: No: D o not add to previous draw Performed By: #### 4 1000, 05277, 40526, 94975 #### [facility] [address] [place] [address], [facility] PLAT CNT 179 10*3/uL Normal 150-400 [facility] Comment on above: Order Comment: No: D o not add to previous draw Performed By: #### 4 1000, 15127, 33048, 16483 #### [facility] [address] [place] [address], [facility] RBC (Bld) [#/Vol] 4.78 10*6/uL Normal 4.20-5.70 [facility] Comment on above: Order Comment: No: D o not add to previous draw Performed By: #### 4 1000, 02231, 19840, 10534 #### [facility] [address] [place] [address], [facility] WBC (Bld) [#/Vol] 8.04 10*3/uL Normal 4.00-10.60 [facility] Comment on above: Order Comment: No: D o not add to previous draw Performed By: #### 4 1000, 04135, 55495, 95262 #### [facility] [address] [place] [address], [facility] HEMOGLOBIN A1Con 06-13-2019 HbA1c (Bld) [Mass fraction] 8.1 % High 4.0-6.0 [facility] Comment on above: Order Comment: No: D o not add to previous draw Performed By: #### 4 1000, 77742, 24240, 72598 #### [facility] [address] [place] [address], [facility] HbA1c (Bld) [Mass fraction] 186 mg/dL High 70-126 [facility] Comment on above: Order Comment: No: D o not add to previous draw Performed By: #### 4 1000, 04241, 89306, 38646 #### [facility] [address] [place] [address], [facility] MAGNESIUM BLOODon 06-13-2019 Magnesium [Mass/Vol] 2.2 mg/dL Normal 1.9-2.7 [facility] Comment on above: Order Comment: No: D o not add to previous draw Performed By: #### 4 1000, 93290, 02196, 54645 #### [facility] [address] [place] [address], [facility] PHOSPHORUS BLOODon 9 Phosphate [Mass/Vol] 3.7 mg/dL Normal 2.5-5.0 [facility] Comment on above: Order Comment: No: D o not add to previous draw Performed By: #### 4 1000, 89268, 85015, 06951 #### [facility] [address] [place] [address], [facility] POC GLUCOSE LABon 06-13-2019 Glucose [Mass/Vol] 156 mg/dL High 70-100 [facility] Comment on above: Performed By: #### 4 1000, 93267, 56009, 15101 #### [facility] [address] [facility] [address], [place] Glucose [Mass/Vol] 90 mg/dL Normal 70-100 [facility] Comment on above: Performed By: #### 4 1000, 71334, 09375, 76152 #### [facility] [address] [place] [address], [place] Glucose [Mass/Vol] 220 mg/dL High 70-100 [facility] Comment on above: Performed By: #### 4 1000, 34703, 62252, 35150 #### [facility] [address] [place] [address], [place] BASIC METABOLIC PANELon Calcium [Mass/Vol] 8.7 mg/dL Normal 8.6-10.3 [facility] Comment on above: Order Comment: If no t done in ED No: Do not add to previous draw Performed By: #### 8 5123 #### [facility] [address] [place] [address], [place] Chloride [Moles/Vol] 95 mmol/L Low 98-107 [facility] Comment on above: Order Comment: If no t done in ED No: Do not add to previous draw Performed By: #### 8 5123 #### [facility] [address] [place] [address], [place] CO2 [Moles/Vol] 36 mmol/L High 21-31 [facility] Comment on above: Order Comment: If no t done in ED No: Do not add to previous draw Performed By: #### 8 5123 #### [facility] [address] [place] [address], [place] Creatinine [Mass/Vol] 1.28 mg/dL Normal 0.70-1.30 [facility] Comment on above: Order Comment: If no t done in ED No: Do not add to previous draw Performed By: #### 8 5123 #### [facility] [address] [place] [address], [place] GFR/1.73 sq M predicted among blacks MDRD (S/P/Bld) [Vol rate/Area] mL/min/{1.73_m2} Normal >60 [facility] Comment on above: Order Comment: If no t done in ED No: Do not add to previous draw Performed By: #### 8 5123 #### [facility] [address] [place] [address], [place] GFR/1.73 sq M predicted among non-blacks MDRD (S/P/Bld) [Vol rate/Area] 57 ml/min/1.73sq m Abnormal >60 [facility] Comment on above: Order Comment: If no t done in ED No: Do not add to previous draw Performed By: #### 8 5123 #### [facility] [address] [place] [address], [place] Glucose [Mass/Vol] 83 mg/dL Normal 70-100 [facility] Comment on above: Order Comment: If no t done in ED No: Do not add to previous draw Performed By: #### 8 5123 #### [facility] [address] [place] [address], [place] Potassium [Moles/Vol] 3.7 mmol/L Normal 3.5-5.1 [facility] Comment on above: Order Comment: If no t done in ED No: Do not add to previous draw Performed By: #### 8 5123 #### [facility] [address] [place] [address], [place] Sodium [Moles/Vol] 140 mmol/L Normal 136-145 [facility] Comment on above: Order Comment: If no t done in ED No: Do not add to previous draw Performed By: #### 8 5123 #### [facility] [address] [place] [address], [facility] Urea nitrogen [Mass/Vol] 30 mg/dL High 7-25 [facility] Comment on above: Order Comment: If no t done in ED No: Do not add to previous draw Performed By: #### 8 5123 #### [facility] [address] [place] [address], [facility] CBC COMPLETE BLOOD COUNTon 1 08-13-2018 Erythrocyte distribution width (RBC) [Ratio] 13.4 % Normal 11.5-15.0 [facility] Comment on above: Order Comment: If no t done in ED No: Do not add to previous draw Performed By: #### 8 5123 #### [facility] [address] [place] [address], [place] Hematocrit (Bld) [Volume fraction] 42.2 % Normal 39.0-50.0 [facility] Comment on above: Order Comment: If no t done in ED No: Do not add to previous draw Performed By: #### 8 5123 #### [facility] [address] [place] [address], [facility] Hemoglobin (Bld) [Mass/Vol] 12.9 g/dL Low 13.0-17.0 [facility] Comment on above: Order Comment: If no t done in ED No: Do not add to previous draw Performed By: #### 8 5123 #### [facility] [address] [place] [address], [facility] MCH (RBC) [Entitic mass] 28.8 pg Normal 27.0-33.0 [facility] Comment on above: Order Comment: If no t done in ED No: Do not add to previous draw Performed By: #### 8 5123 #### [facility] [address] [place] [address], [facility] MCHC (RBC) [Mass/Vol] 30.6 g/dL Low 32.0-35.0 [facility] Comment on above: Order Comment: If no t done in ED No: Do not add to previous draw Performed By: #### 8 5123 #### [facility] [address] [facility] [place] [address], [facility] MCV (RBC) [Entitic vol] 94.2 fL Normal 82.0-98.0 [facility] Comment on above: Order Comment: If no t done in ED No: Do not add to previous draw Performed By: #### 8 5123 #### [facility] [address] [place] [address], [facility] Nucleated RBC/100 WBC (Bld) [Ratio] 0 % Normal 0-0 [facility] Comment on above: Order Comment: If no t done in ED No: Do not add to previous draw Performed By: #### 8 5123 #### [facility] [address] [place] [address], [facility] PLAT CNT 159 10*3/uL Normal 150-400 [facility] Comment on above: Order Comment: If no t done in ED No: Do not add to previous draw Performed By: #### 8 5123 #### [facility] [address] [place] [address], [facility] RBC (Bld) [#/Vol] 4.48 10*6/uL Normal 4.20-5.70 [facility] Comment on above: Order Comment: If no t done in ED No: Do not add to previous draw Performed By: #### 8 5123 #### [facility] [address] [place] [address], [facility] WBC (Bld) [#/Vol] 8.80 10*3/uL Normal 4.00-10.60 [facility] Comment on above: Order Comment: If no t done in ED No: Do not add to previous draw Performed By: #### 8 5123 #### [facility] [address] [facility] [place] [address], [facility] MAGNESIUM BLOODon 06-12-2019 Magnesium [Mass/Vol] 1.8 mg/dL Low 1.9-2.7 [facility] Comment on above: Order Comment: If no t done in ED No: Do not add to previous draw Performed By: #### 8 5123 #### [facility] [address] [facility] [place] [address], [facility] PHOSPHORUS BLOODon 9 Phosphate [Mass/Vol] 3.9 mg/dL Normal 2.5-5.0 [facility] Comment on above: Order Comment: If no t done in ED No: Do not add to previous draw Performed By: #### 8 5123 #### [facility] [address] [facility] [place] [address], [facility] POC GLUCOSE LABon 06-12-2019 Glucose [Mass/Vol] 323 mg/dL High 70-100 [facility] Comment on above: Performed By: #### 8 5123 #### [facility] [address] [place] [address], [facility] Glucose [Mass/Vol] 284 mg/dL High 70-100 [facility] Comment on above: Performed By: #### 8 5123 #### [facility] [address] [place] [address], [place] Glucose [Mass/Vol] 243 mg/dL High 70-100 [facility] Comment on above: Performed By: #### 8 5123 #### [facility] [address] [place] [address], [place] Glucose [Mass/Vol] 82 mg/dL Normal 70-100 [facility] Comment on above: Performed By: #### 8 5123 #### [facility] [address] [place] [address], [facility] ARTERIAL BLOOD GAS WITH ICAo n 06-11-2019 BASE EXCESS 13 mmol/L High -2-3 [facility] Comment on above: Order Comment: RESUL TS CHECKED AND CALLED. ACCURATELY READ BACK BY ARNULFO MOSER RN Performed By: #### 8 4511 #### [facility] [address] [place] [address], [facility] [employer] NASAL CANNULA Normal [facility] Comment on above: Order Comment: RESUL TS CHECKED AND CALLED. ACCURATELY READ BACK BY ARNULFO MOSER RN Performed By: #### 8 4511 #### [facility] [address] [facility] [place] [address], [facility] HCO3 (Bld) [Moles/Vol] 41 mmol/L Critically high 21-28 [facility] Comment on above: Order Comment: RESUL TS CHECKED AND CALLED. ACCURATELY READ BACK BY ARNULFO MOSER RN Performed By: #### 8 4511 #### [facility] [address] [place] [address], [facility] IONIZED CALCIUM 1.10 mmol/L Low 1.13-1.32 [facility] Comment on above: Order Comment: RESUL TS CHECKED AND CALLED. ACCURATELY READ BACK BY ARNULFO MOSER RN Performed By: #### 8 4511 #### [facility] [address] [place] [address], [facility] LPM 3.0 LPM Normal [facility] Comment on above: Order Comment: RESUL TS CHECKED AND CALLED. ACCURATELY READ BACK BY RANULFO MOSER RN Performed By: #### 8 4511 #### [facility] [address] Oxygen (Bld) [Partial pressure] 63 mm[Hg] Low 83-108 [facility] Comment on above: Order Comment: RESUL TS CHECKED AND CALLED. ACCURATELY READ BACK BY ARNULFO MOSRE RN Performed By: #### 8 4511 #### [facility] [address] [facility] Oxygen saturation in Blood 91.9 % Low 94.0-97.0 [facility] Comment on above: Order Comment: RESUL TS CHECKED AND CALLED. ACCURATELY READ BACK BY ARNULFO MOSER RN Performed By: #### 8 4511 #### [facility] [address] PCO2 70 mmHg Critically high 35-45 [facility] Comment on above: Order Comment: RESUL TS CHECKED AND CALLED. ACCURATELY READ BACK BY ARNULFO MOSER RN Performed By: #### 8 4511 #### [facility] [address] pH (Bld) 7.38 [pH] Normal 7.35-7.45 [facility] Comment on above: Order Comment: RESUL TS CHECKED AND CALLED. ACCURATELY READ BACK BY ARNULFO MOSER RN Performed By: #### 8 4511 #### [facility] [address] BASIC METABOLIC PANELon 12-0 Calcium [Mass/Vol] 8.6 mg/dL Normal 8.6-10.3 [facility] Comment on above: Order Comment: No: D o not add to previous draw Performed By: #### 4 1000, 85599, 27385, 23457 #### [facility] [address] [place] [address], [place] Chloride [Moles/Vol] 97 mmol/L Low 98-107 [facility] Comment on above: Order Comment: No: D o not add to previous draw Performed By: #### 4 1000, 54998, 96490, 69343 #### [facility] [address] [place] [address], [place] CO2 [Moles/Vol] 40 mmol/L High 21-31 [facility] Comment on above: Order Comment: No: D o not add to previous draw Performed By: #### 4 1000, 82758, 25548, 48287 #### [facility] [address] [place] [address], [place] Creatinine [Mass/Vol] 1.62 mg/dL High 0.70-1.30 [facility] Comment on above: Order Comment: No: D o not add to previous draw Performed By: #### 4 1000, 57495, 39056, 80224 #### [facility] [address] [place] [address], [place] GFR/1.73 sq M predicted among blacks MDRD (S/P/Bld) [Vol rate/Area] 52 ml/min/1.73sq m Abnormal >60 [facility] Comment on above: Order Comment: No: D o not add to previous draw Performed By: #### 4 1000, 17867, 60765, 22018 #### [facility] [address] [place] [address], [place] GFR/1.73 sq M predicted among non-blacks MDRD (S/P/Bld) [Vol rate/Area] 43 ml/min/1.73sq m Abnormal >60 [facility] Comment on above: Order Comment: No: D o not add to previous draw Performed By: #### 4 1000, 10985, 11951, 82754 #### [facility] [address] [place] [address], [place] Glucose [Mass/Vol] 82 mg/dL Normal 70-100 [facility] Comment on above: Order Comment: No: D o not add to previous draw Performed By: #### 4 1000, 55268, 72046, 22088 #### [facility] [address] [place] [address], [place] Potassium [Moles/Vol] 4.0 mmol/L Normal 3.5-5.1 [facility] Comment on above: Order Comment: No: D o not add to previous draw Performed By: #### 4 1000, 34147, 25317, 31561 #### [facility] [address] [place] [address], [place] Sodium [Moles/Vol] 141 mmol/L Normal 136-145 [facility] Comment on above: Order Comment: No: D o not add to previous draw Performed By: #### 4 1000, 44891, 82371, 81189 #### [facility] [address] [place] [address], [place] Urea nitrogen [Mass/Vol] 33 mg/dL High 7-25 [facility] Comment on above: Order Comment: No: D o not add to previous draw Performed By: #### 4 1000, 16050, 29906, 06766 #### [facility] [address] [place] [address], [place] BNP (B-TYPE NATRIURETIC PEPT TANG)on 06-11-2019 Natriuretic peptide B (Bld) [Mass/Vol] 21 pg/mL Normal 0-100 [facility] Comment on above: Order Comment: If no t done in ED No: Do not add to previous draw Result Comment: Give n the appropriate clinical setting a BNP result of >100 pg/mL indicates congestive heart failure. Performed By: #### 8 5123 #### [facility] [address] [place] [address], [facility] CBC W/DIFFon 06-11-2019 ABS BASOPHILS 0.0 10*3/uL Normal 0.0-0.2 [facility] Comment on above: Order Comment: No: D o not add to previous draw Performed By: #### 5 0103 #### [facility] [address] [facility] [address], [facility] ABS IMM GRANS 0.0 10*3/uL Normal 0.0-0.2 [facility] Comment on above: Order Comment: No: D o not add to previous draw Performed By: #### 5 0103 #### [facility] [address] [place] [address], [facility] ABS NEUTROPHILS 7.1 10*3/uL Normal 1.6-7.6 The [facility] Comment on above: Order Comment: No: D o not add to previous draw Performed By: #### 5 0103 #### [facility] [address] [place] [address], [facility] Basophils/100 WBC (Bld) 0.3 % Normal 0.0-1.0 The [facility] Comment on above: Order Comment: No: D o not add to previous draw Performed By: #### 5 0103 #### [facility] [address] [place] [address], [facility] Eosinophils (Bld) [#/Vol] 0.2 10*3/uL Normal 0.0-0.5 [facility] Comment on above: Order Comment: No: D o not add to previous draw Performed By: #### 5 0103 #### [facility] [address] [place] [address], [facility] Eosinophils/100 WBC (Bld) 1.8 % Normal 0.0-6.0 [facility] Comment on above: Order Comment: No: D o not add to previous draw Performed By: #### 5 0103 #### [facility] [address] [place] [address], [facility] Erythrocyte distribution width (RBC) [Ratio] 13.7 % Normal 11.5-15.0 [facility] Comment on above: Order Comment: No: D o not add to previous draw Performed By: #### 5 0103 #### [facility] [address] [place] [address], [facility] Hematocrit (Bld) [Volume fraction] 43.1 % Normal 39.0-50.0 [facility] Comment on above: Order Comment: No: D o not add to previous draw Performed By: #### 5 0103 #### [facility] [address] [place] [address], [facility] Hemoglobin (Bld) [Mass/Vol] 12.9 g/dL Low 13.0-17.0 [facility] Comment on above: Order Comment: No: D o not add to previous draw Performed By: #### 5 0103 #### [facility] [address] [place] [address], [facility] IMMATURE GRANS 0.3 % Normal 0.0-1.0 [facility] Comment on above: Order Comment: No: D o not add to previous draw Performed By: #### 5 3 #### [facility] [address] [place] [address], [facility] Lymphocytes (Bld) [#/Vol] 1.7 10*3/uL Normal 1.2-4.0 [facility] Comment on above: Order Comment: No: D o not add to previous draw Performed By: #### 5 0103 #### [facility] [address] [place] [address], [facility] Lymphocytes/100 WBC (Bld) 17.6 % Low 20.0-45.0 [facility] Comment on above: Order Comment: No: D o not add to previous draw Performed By: #### 5 0103 #### [facility] [address] [place] [address], [facility] MCH (RBC) [Entitic mass] 28.6 pg Normal 27.0-33.0 [facility] Comment on above: Order Comment: No: D o not add to previous draw Performed By: #### 5 0103 #### [facility] [address] [place] [address], [facility] MCHC (RBC) [Mass/Vol] 29.9 g/dL Low 32.0-35.0 [facility] Comment on above: Order Comment: No: D o not add to previous draw Performed By: #### 5 0103 #### [facility] [address] [facility] [place] [address], [facility] MCV (RBC) [Entitic vol] 95.6 fL Normal 82.0-98.0 [facility] Comment on above: Order Comment: No: D o not add to previous draw Performed By: #### 5 0103 #### [facility] [address] [place] [id number], [facility] Monocytes (Bld) [#/Vol] 0.7 10*3/uL Normal 0.1-1.0 [facility] Comment on above: Order Comment: No: D o not add to previous draw Performed By: #### 5 3 #### [facility] [address] [facility] [address], [facility] MONOS 6.9 % Normal 5.0-12.0 [facility] Comment on above: Order Comment: No: D o not add to previous draw Performed By: #### 5 0103 #### [facility] [address] [place] [address], [facility] Neutrophils/100 WBC (Bld) 73.1 % High 40.0-72.0 [facility] Comment on above: Order Comment: No: D o not add to previous draw Performed By: #### 5 3 #### [facility] [address] [place] [address], [facility] Nucleated RBC/100 WBC (Bld) [Ratio] 0 % Normal 0-0 [facility] Comment on above: Order Comment: No: D o not add to previous draw Performed By: #### 5 0103 #### [facility] [address] [place] [address], [place] PLAT CNT 157 10*3/uL Normal 150-400 [facility] Comment on above: Order Comment: No: D o not add to previous draw Performed By: #### 5 0103 #### [facility] [address] [place] [address], [facility] RBC (Bld) [#/Vol] 4.51 10*6/uL Normal 4.20-5.70 [facility] Comment on above: Order Comment: No: D o not add to previous draw Performed By: #### 5 0103 #### [facility] [address] [place] [address], [facility] WBC (Bld) [#/Vol] 9.68 10*3/uL Normal 4.00-10.60 [facility] Comment on above: Order Comment: No: D o not add to previous draw Performed By: #### 5 0103 #### [facility] [address] [place] [address], [facility] History and Physicalon 06-11 History and Physical MR#: [id number] [facility] Pt. Name: Mackenzie Dumont Admitted: 06/11/2019 Date of : 1955 Attending Physician: Cynthia Miguel M.D. Room #: [id number] Discharge Date: HISTORY AND PHYSICAL CHIEF COMPLAINT: Shortness of breath. HISTORY OF PRESENT ILLNESS: Mr. Peterson is a 63-year-old male with a past medical history of diastolic congestive heart failure, obstructive sleep apnea, obesity hypoventilation syndrome, history of DVT, hypertension, CAD, and diabetes mellitus type 2, who was transferred from [facility] for progressively worsening shortness of breath [...] diarrhea, weakness, or numbness. On presentation to [facility], the patient was in respiratory distress. [...] Diastolic CHF exacerbation: ABG on presentation to [facility] revealed a pH of 7.27, pCO2 [...] His baseline is 1.45 to 1.55 per [facility] notes. The patient will be on Lasix [...] Miguel M.D. Date Trans: 06/11/2019 12:14 P/mmo [id number] Normal The [facility] MAGNESIUM BLOODon 06-11-2019 Magnesium [Mass/Vol] 1.9 mg/dL Normal 1.9-2.7 [facility] Comment on above: Order Comment: No: D o not add to previous draw Performed By: #### 4 1000, 03596, 46268, 30274 #### [facility] [address] [facility] [address], [facility] PHOSPHORUS BLOODon 9 Phosphate [Mass/Vol] 3.6 mg/dL Normal 2.5-5.0 [facility] Comment on above: Order Comment: No: D o not add to previous draw Performed By: #### 4 1000, 67290, 04324, 08432 #### [facility] [address] [place] [address], [facility] POC GLUCOSE LABon 06-11-2019 Glucose [Mass/Vol] 168 mg/dL High 70-100 [facility] Comment on above: Performed By: #### 8 8106 #### [facility] [address] [place] [address], [place] Glucose [Mass/Vol] 235 mg/dL High 70-100 [facility] Comment on above: Performed By: #### 8 6231 #### [place] [address], [facility] PORTABLE CHEST 1 VIEWon PORTABLE CHEST 1 VIEW [facility] Department of Radiology [address] [place] [phone] Patient Name: MACKENZIE DUMONT : 1955 Sex: M Age: Race: White Pt. Location: [id number] Patient Status: I Ordered Date: 06/11/2019 10:25:00 [...] Electronically signed by:Carlos Eduardo Loera. Transcribed by: Damari, User Resident: Electronically Signed by: CARLOS EDUARDO LOERA @ 06/11/2019 03:03 PM Normal [facility] Comment on above: Order Comment: R/O C HF TROPONIN-Ion 06-11-2019 Troponin I.cardiac [Mass/Vol] 0.12 ng/mL Critically high 0.00-0.04 [facility] Comment on above: Order Comment: No: D o not add to previous draw Result Comment: REFE RENCE RANGES: 0.00 - 0.04 ng/ml NORMAL 0.05 - 0.50 ng/ml INDETERMINATE > 0.50 ng/ml CONSISTENT WITH AN M.I. Performed By: #### 3 5200 #### [facility] [address] Troponin I.cardiac [Mass/Vol] 0.15 ng/mL Critically high 0.00-0.04 [facility] Comment on above: Result Comment: M-TR OPONIN INITIAL CRITICAL HIGH; RESPUN AND RETESTED M-CRITICAL RESULT(S) REVIEWED, CALLED TO AND READ BACK BY ANDRE FELIX RN AT 1504 REFERENCE RANGES: 0.00 - 0.04 ng/ml NORMAL 0.05 - 0.50 ng/ml INDETERMINATE > 0.50 ng/ml CONSISTENT WITH AN M.I. Performed By: #### 4 1000, 45560, 47006, 59309 #### [facility] [address] Vital Signs Date Time Vital Sign Value Performing Clinician Josue hernandez 01-27-2025 09:56-0400 Body height 175.3 cm Jeffry HOBBSM Work Phone: [facility] 01-27-2025 09:56-0400 Body mass index (BMI) [Ratio] 46.67 kg/m2 Jeffry HOBBSM Work Phone: [facility] 01-27-2025 09:56-0400 Body weight 143.34 kg Jeffry Garces DPM Work Phone: [facility] 01-27-2025 09:56-0400 Respiratory rate 18 /min Jeffry Brown DPM Work Phone: [facility] 11-18-2024 09:46-0400 Body height 175.3 cm Jeffry Brown DPM Work Phone: [facility] 11-18-2024 09:46-0400 Body mass index (BMI) [Ratio] 46.67 kg/m2 Jeffry Brown DPM Work Phone: [facility] 11-18-2024 09:46-0400 Body weight 143.34 kg Jeffry Brown DPM Work Phone: [facility] 11-18-2024 09:46-0400 Respiratory rate 18 /min Jeffry Brown DPM Work Phone: [facility] 09-02-2024 10:08-0500 Body height 175.3 cm Jeffry Brown DPM Work Phone: [facility] 09-02-2024 10:08-0500 Body mass index (BMI) [Ratio] 46.67 kg/m2 Jeffry Brown DPM Work Phone: [facility] 09-02-2024 10:08-0500 Body weight 143.34 [...] 05-06-2024 12:00-0400 Heart rate 85 /min Jeffry Garces DPM Work Phone: [facility] 05-06-2024 12:00-0400 Systolic blood pressure 126 mm[Hg] Jeffry Garces DPM Work Phone: [facility] 02-26-2024 11:06-0400 Body height 175.3 cm Jeffry Garces DPM Work Phone: [facility] 02-26-2024 11:06-0400 Body mass index (BMI) [Ratio] 46.67 kg/m2 Jeffry Garces DPM Work Phone: [facility] 02-26-2024 11:06-0400 Body weight 143.34 kg Jeffry Garces DPM Work Phone: [facility] 02-26-2024 11:06-0400 Diastolic blood pressure 80 mm[Hg] Jeffry Garces DPM Work Phone: [facility] 02-26-2024 11:06-0400 Heart rate 89 /min Jeffry Garces DPM Work Phone: [facility] 02-26-2024 11:06-0400 Systolic blood pressure 129 mm[Hg] Jeffry Garces DPM Work Phone: [facility] 06-04-2021 19:26-0500 Body temperature 96.69 [degF] Latoya Moyer DO Work Phone: [facility] 06-04-2021 19:20-0500 Diastolic blood pressure 66 mm[Hg] Latoya Moyer DO Work Phone: [facility] 06-04-2021 19:20-0500 Systolic blood pressure 174 mm[Hg] Latoya Moyer DO Work Phone: [facility] 06-04-2021 19:18-0500 SaO2% (BldA) [Mass fraction] 96 % Latoya Moyer DO Work Phone: [facility] 06-04-2021 19:12-0500 Heart rate 71 /min Latoya Moyer DO Work Phone: [facility] 06-04-2021 19:12-0500 Respiratory rate 16 /min Latoya Moyer DO Work Phone: [facility] Encounters Encounter Date Encounter Type Care Provider Facility Start: 01-27-2025 End: 01-27-2025 Bamboo flowsheet Jeffry Garces DPM Work Phone: [facility] Start: 01-27-2025 End: 01-27-2025 Bamboo flowsheet Jeffry Garces DPM Work Phone: [facility] Start: 01-27-2025 End: 01-27-2025 Patient encounter procedure Jeffry Garces DPM Work Phone: [facility] Comment on above: Diabetes mellitus du e to underlying condition with diabetic polyneuropathy, with long-term current use of insulin ([facility]) (Primary Dx); Pain due to onychomycosis of toenails of both feet Start: 01-27-2025 End: 01-27-2025 ambulatory JEFFRY GARCES Not Available Start: 11-18-2024 End: 11-18-2024 Bamboo flowsheet Jeffry Garces DPM Work Phone: [facility] Start: 11-18-2024 End: 11-18-2024 Bamboo flowsheet Jeffry Garces DPM Work Phone: [facility] Start: 11-18-2024 End: 11-18-2024 Patient encounter procedure Jeffry Garces DPM Work Phone: [facility] Comment on above: Diabetes mellitus du e to underlying condition with diabetic polyneuropathy, with long-term current use of insulin ([facility]) (Primary Dx); Pain due to onychomycosis of toenails of both feet Start: 11-18-2024 End: 11-18-2024 ambulatory JEFFRY GARCES Not Available Start: 09-20-2024 End: 09-20-2024 Telephone encounter Jr. Ramón Victoria DO Work Phone: [facility] Comment on above: Antibiotic Start: 09-02-2024 End: 09-02-2024 Bamboo flowsheet Jeffry Garces DPM Work Phone: [facility] Start: 09-02-2024 End: 09-02-2024 Bamboo flowsheet Jeffry Garces DPM Work Phone: [facility] Start: 09-02-2024 End: 09-02-2024 Patient encounter procedure Jeffry Garces DPM Work Phone: [facility] Comment on above: Diabetes mellitus du e to underlying condition with diabetic polyneuropathy, with long-term current use of insulin (CMS/HCC) (Primary Dx); Pain due to onychomycosis of toenails of both feet Start: 09-02-2024 End: 09-02-2024 ambulatory JEFFRY GARCES Not Available Start: 06-16-2024 End: 06-16-2024 ambulatory [facility] Start: 05-06-2024 End: 05-06-2024 Bamboo flowsheet Jeffry Garces DPM Work Phone: [facility] Start: 05-06-2024 End: 05-06-2024 Bamboo [...] Bamboo flowsheet Jeffry Garces DPM Work Phone: [facility] Start: 02-26-2024 End: 02-26-2024 Bamboo flowsheet Jeffry Garces DPM Work Phone: [facility] Start: 02-26-2024 End: 02-26-2024 Patient encounter procedure Jeffry Garces DPM Work Phone: [facility] Comment on above: Diabetes mellitus du e to underlying condition with diabetic polyneuropathy, with long-term current use of insulin ([facility]) (Primary Dx); Onychomycosis; Toe pain, bilateral Start: 02-26-2024 End: 02-26-2024 ambulatory JEFFRY GARCES Not Available Start: 09-04-2023 End: 09-04-2023 ambulatory JEFFRY GARCES Not Available Start: 06-26-2023 End: 06-26-2023 ambulatory JEFFRY GARCES Not Available Start: 04-08-2022 End: 04-09-[address] JOSH PRO Facility:[facility] Start: 10-29-2021 End: 10-30-[address] JOSH PRO Facility:[facility] Start: 06-04-2021 End: 06-05-2021 Emergency department patient visit JOSH [facility] Start: 06-04-2021 End: 06-04-2021 Emergency department patient visit Latoya Moyer DO Work Phone: [facility] ED Comment on above: Hypoglycemia (Primar y Dx) Start: 06-11-2019 End: 06-15-2019 Evaluation and management of inpatient [place] Facility:[facility] Procedures Date Procedure Procedure Detail Performing Clinician Start: 04-08-[address] JOSH PRO Comment on above: Performed By: #### P [facility] #### [facility] [address] [place] [address] Dr. Constantin Yepez Start: 06-04-2021 GLUCOSE, WHOLE BLOOD Ch janes Moyer DO Work Phone: Start: 06-04-2021 Urinalysis microscop ic only Sherine Pink DAVON Work Phone: Start: 06-04-2021 Urnls dip stick/tabl et rgnt auto w/o microscopy Sherine Pink DAVON Work Phone: Start: 06-04-2021 End: 06-04-2021 GLUCOSE, WHOLE BLOOD Latoya Chaney Work Phone: Start: 06-04-2021 Lactate [Moles/volum e] in Serum or Plasma Sherine Jacobo Joesph MAYS Work Phone: Start: 06-04-2021 End: 06-04-2021 GLUCOSE, WHOLE BLOOD Latoya Jennings O Work Phone: Start: 06-04-2021 BLOOD GAS, ARTERIAL Sherine Centeno Joesph MAYS Work Phone: Start: 06-04-2021 Ecg routine ecg w/le ast 12 lds w/i&r Sherine De La Fuenteanthony MAYS Work Phone: Start: 06-04-2021 End: 06-04-2021 Assay of magnesium Sherine De La Fuenteanthony MAYS Work Phone: Start: 06-14-2019 ASSISTANCE WITH RESPIRATORY VENTILATION, <24 HRS, CPAP SEA B [facility]OSS Start: 06-14-2019 MEASURE OF CARDIAC S AMPL \T\ PRESSURE, R HEART, PERC APPROACH REEMA OLIVAREZ Start: 06-13-2019 ASSISTANCE WITH RESPIRATORY VENTILATION, <24 HRS, CPAP SEA B [facility]OSS Start: 06-12-2019 ASSISTANCE WITH RESPIRATORY VENTILATION, <24 HRS, CPAP SAE B [facility]OSS Start: 06-11-2019 ASSISTANCE WITH RESPIRATORY VENTILATION, <24 HRS, CPAP CYNTHIA MIGUEL Start: 06-11-2019 MONITORING OF ARTERI AL SATURATION, PERIPHERAL, PERC APPROACH CYNTHIA MIGUEL Plan of Treatment Date Care Activity Detail Author Start: 12-30-2030 DTaP/Tdap/Td vaccine (2 - Tdap) DTaP/Tdap/Td vaccine (2 - Tdap) [facility] Start: 01-27-2025 End: 01-27-2025 Patient encounter procedure [facility] Comment on above: Diabetes mellitus du e to underlying condition with diabetic polyneuropathy, with long-term current use of insulin ([facility]) (Primary Dx); Pain due to onychomycosis of toenails of both feet Start: 11-18-2024 End: 11-18-2024 Patient encounter procedure [facility] Comment on above: Diabetes mellitus du e to underlying condition with diabetic polyneuropathy, with long-term current use of insulin (CMS/HCC) (Primary Dx); Pain due to onychomycosis of toenails of both feet Start: 09-02-2024 End: 09-02-2024 Patient encounter procedure 09/02/2024 10:40 AM EST Office Visit [facility] [address] [phone] Jeffry Garces DPM [address] [address] Diabetes mellitus due to underlying condition with [...] EST Office Visit [facility] [address] [phone] Jeffry Garces DPM [address] [address] [facility] Start: 05-06-2024 End: 05-06-2024 Patient encounter procedure [facility] Comment on above: Diabetes mellitus du e to underlying condition with diabetic polyneuropathy, with long-term current use of insulin (CMS/HCC) (Primary Dx); Pain due to onychomycosis of toenails of both feet Start: 02-26-2024 End: 02-26-2024 Patient encounter procedure 02/26/2024 11:40 AM EDT Office Visit [facility] [address] [facility] [address] [place] [phone] Jeffry Garces, DPPaula [address] [facility] [address] [place] [address] Diabetes mellitus due to underlying condition with diabetic polyneuropathy, with long-term current use of insulin ([facility]CC) (Primary Dx); Onychomycosis; Toe pain, bilateral [facility] Comment on above: Diabetes mellitus du e to underlying condition with diabetic polyneuropathy, with long-term current use of insulin ([facility]/HCC) (Primary Dx); Onychomycosis; Toe pain, bilateral Start: 06-04-2022 Creatinine measurement Creatinine mo nitoring [facility] Start: 06-04-2022 Potassium monitoring Potassium monit oring [facility] Start: 03-07-2021 Influenza vaccination Flu vaccine (# 1) [facility] Start: 2004 Shingles Vaccine (1 of 2) Shingles Vaccine (1 of 2) [facility] Start: 1999 Screening for malign ant neoplasm of colon Colon cancer screen colonoscopy [facility] Start: 1966 COVID-19 Vaccine (1) COVID-19 Vaccin e (1) [facility] Start: 1964 Lipid panel Lipid screen [facility] Start: 1955 Hepatitis C screening Hepatitis C sc reen [facility] EKG 12 Lead EKG 12 Lead ECG STAT 06/04/2021 7:12 PM EST [facility] Phone: End: 06-04-2021 Glucose [Mass/volume] in Serum or Plasma [facility] Phone: Comment on above: One Time for 1 Occur rences starting 06/04/2021 until 06/04/2021 Payers Date Payer Category Payer Unknown [id number] 2022 Medicare [place] AAR MEDICARE COMPLETE ([employer]) [id number] 2022-Present [address] [address] [place] [address] [id number] 2022 Medicare (Managed Care) [id number]. [id number] 2022 Unknown [id number] 2017 Unknown [id number] 1959 Unknown [id number] 1955 Unknown [id number] 647 1955 Unknown [id number] 593 1955 Unknown [id number] 593 1955 Unknown [id number]. 1259 1955 Unknown [id number]. 1259 1954 Unknown [id number] [id number]. 1259 1955 Unknown [id number] 1955 Unknown [id number] 1955 Unknown [id number] 1955 Unknown [id number] Medicare [id number] Social History Date Type Detail Facility Start: 06-04-2021 End: 11-27-2022 Tobacco smoking status NHIS Never smoked tobacco [facility]: Start: 06-04-2021 End: 11-27-2022 Tobacco use and exposure Smokeless tobacco non-user [facility]: Start: 06-04-2021 End: 01-27-2025 Alcohol intake Lifetime non-drinker (finding) [facility]: Start: 06-04-2021 History SDOH Alcohol Frequency 1 [facility]: Start: 1955 Sex Assigned At Not on file [facility]: Start: 02-26-2024 End: 11-18-2024 History of Social function [facility] Start: 02-26-2024 End: 11-18-2024 Tobacco use panel [facility] Start: 1955 Sex assigned at Male [facility] Start: 10-16-2023 Gender identity Identifies as male gender (finding) [facility] NEGATED: Highlighted rowStart: NINF History of tobacco use Passive smoker [facility] Clinical Notes 06-04-2021 to 09-20-2024 Telephone Encounter - Geronimo Posey NP - 09/20/2024 12:08 PM EDTTelephone Encounter - Geronimo Posey NP - 09/20/2024 12:08 PM EDTTelephone Encounter - Kecia Mcgregor - 09/20/2024 11:44 AM EDT Note Date & Type Note Facility 09-20-2024 Telephone encounter Note Allergies reveiwed. Rx sent to pharmacy [facility] 09-20-2024 Miscellaneous Notes Allergies reveiwed. Rx sent to pharmacy Patient called in stating he needs an antibiotic sent to his pharmacy. documented in this encounter [facility] 09-20-2024 Telephone encounter Note Patient called in stating he needs an antibiotic sent to his pharmacy. [facility] 06-16-2024 Note Cardiovascular Medic [facility] SUBJECTIVE Chief Complaint Patient presents with [...] neuropathy Type 2 diabetes mellitus without complication ([facility]/HCC) Type 1 diabetes mellitus ([facility]/HCC) Shoulder joint pain Positive D-dimer Peripheral venous insufficiency Biceps tendinitis Brachial neuritis Past Medical History: Diagnosis Date CAD (coronary artery disease) Carpal tunnel syndrome CHF (congestive heart failure) (CMS/HCC) CKD (chronic kidney disease) COPD (chronic obstructive pulmonary disease) ([facility]/HCC) Diastolic heart failure ([facility]/HCC) DM (diabetes mellitus) ([facility]) GERD (gastroesophageal reflux disease) Hyperlipidemia Hypertension [...] Normal range of (more content not included)... [facility] 06-16-2024 Note Patient here for 1 y [...] All other systems reviewed and are negative. [facility] 05-06-2024 History of Presen t illness Narrative [...] History: Past Medical History: Diagnosis Date Diabetes (CMS/HCC) Gout Neuropathy in diabetes (CMS/[facility]) Onychomycosis Tinea pedis Medications: Current Outpatient [...] Partner Violence: Unknown (08/28/2023) Re[facility] [place] [employer] Fear [...] and negative PT pedal pulses NEURO: 5.07 Hartsel Lenin monofilament test diminished to digits and forefoot bilaterally 125Hz tuning fork diminished to 1st MPJ bilaterally ORTHO: Positive pain on palpation to nails 1 through 10 ASSESSMENT 1. Diabetes mellitus due to underlying condition with diabetic polyneuropathy, with long-term current use of insulin ([facility]) 2. Pain due to onychomycosis of [...] History: Past Medical History: Diagnosis Date Diabetes ([facility]) Gout Neuropathy in diabetes ([facility]) Onychomycosis Tinea pedis Medications: Current Outpatient [...] Partner Violence: Unknown (08/28/2023) Received from [facility] [place] [employer] Fear [...] and negative PT pedal pulses NEURO: 5.07 Hartsel Lenin monofilament test diminished to digits and forefoot bilaterally 125Hz tuning fork diminished to 1st MPJ bilaterally ORTHO: Positive pain on palpation to nails 1 through 10 ASSESSMENT 1. Diabetes mellitus due to underlying condition with diabetic polyneuropathy, with long-term current use of insulin ([facility]) 2. Onychomycosis 3. Toe pain, bilateral PLAN Discussed proper foot care with patient today. Debride nails in length and thickness digits 1 through 10 Jeffry Garces DPM documented in this encounter [facility] 06-04-2021 Hospital DischLatoya Bell DO - 06/04/2021 Please call your primary care doctor tomorrow regarding additional management of your diabetes and med adjustments. Return to ER if you start to feel ill, monitor your glucose at home with frequent checks. documented in this encounter [facility]: Evaluation note Diagnosis Hypoglycemia- Primary Hypoglycemia, unspecified documented in this encounter [facility]: evaluation note* Diagnosis Diabetes mellitus due [...] polyneuropathy, with long-term current use of insulin (HCC)- Primary Pain due to onychomycosis of toenails of both feet documented in this encounter [facility] HealthcareHistory of Present illness Narrative* Jeffry Garces DPM - 09/02/2024 10:40 AM EST Patient: Mackenzie Dumont DOB: 1955 PCP: No primary care provider on [...] History: Past Medical History: Diagnosis Date Diabetes ([facility]) Gout Neuropathy in diabetes ([facility]) Onychomycosis Tinea pedis Medications: Current Outpatient [...] Partner Violence: Unknown (08/28/2023) Received from [facility] [place] [employer] Fear [...] and negative PT pedal pulses NEURO: 5.07 Hartsel Lenin monofilament test diminished to digits and forefoot bilaterally 125Hz tuning fork diminished to 1st MPJ bilaterally ORTHO: Positive pain on palpation to toenails of the left 1,2,3,4,5 toes and right 1,2,3,4,5 toes ASSESSMENT 1. Diabetes mellitus due to underlying condition with diabetic polyneuropathy, with long-term current use of insulin ([facility]) 2. Pain due to onychomycosis of [...] History: Past Medical History: Diagnosis Date Diabetes ([facility]) Gout Neuropathy in diabetes ([facility]) Onychomycosis Tinea pedis Medications: Current Outpatient [...] Partner Violence: Unknown (08/28/2023) Received from [facility] [employer] Fear of Current or [...] and negative PT pedal pulses NEURO: 5.07 Hartsel Lenin monofilament test diminished to digits and forefoot bilaterally 125Hz tuning fork diminished to 1st MPJ bilaterally ORTHO: Positive pain on palpation to toenails of the left 1,2,3,4,5 toes and right 1,2,3,4,5 toes ASSESSMENT 1. Diabetes mellitus due to underlying condition with diabetic polyneuropathy, with long-term current use of insulin ([facility]) 2. Pain due to onychomycosis of toenails of both feet PLAN Discussed proper foot care with patient today. Debride nails in length and thickness digits 1 through 10 Jeffry Garces DPM [facility] Narrative * Jeffry Garces DPM - 01/27/2025 10:10 AM EDT Patient: Mackenzie Dumont : 1955 [...] History: Past Medical History: Diagnosis Date Diabetes ([facility]) Gout Neuropathy in diabetes ([facility]) Onychomycosis Tinea pedis Medications: Current Outpatient [...] Partner Violence: Unknown (08/28/2023) Received from [facility] [employer] Fear of Current or [...] of right and left foot interdigital spaces VASC: positive DP and negative PT pedal pulses NEURO: 5.07 Hartsel Lenin monofilament test diminished to digits and forefoot bilaterally 125Hz tuning fork diminished to 1st MPJ bilaterally ORTHO: Positive pain on palpation to toenails of the left 1,2,3,4,5 toes and right 1,2,3,4,5 toes ASSESSMENT 1. Diabetes mellitus due to underlying condition with diabetic polyneuropathy, with long-term current use of insulin (HCC) 2. Pain due to onychomycosis of toenails [...] Records Found Hospital Course Note MR#: [id number] [facility] Pt. Name: Mackenzie Dumont Admitted: 06/11/2019 Discharged: [...] AUTHOR 07/07/2019 [facility] DATE CREATED AUTHOR AUTHOR'S ORGANIZ ATION 06/08/2021 [facility] DATE CREATED AUTHOR AUTHOR'S ORGANIZ ATION 04/12/2022 [facility] DATE CREATED AUTHOR AUTHOR'S ORGANIZ ATION 09/06/2023 [facility] DATE CREATED AUTHOR AUTHOR'S ORGANIZ ATION 12/23/2024 [facility] DATE CREATED AUTHOR AUTHOR'S ORGANIZ ATION 01/28/2025 [facility] EPIC Reason for Visit (unrecogniz ed section and content) Reason Comments Hypoglycemia Reason Comments DM Foot Care Dm Nails Reason Comments DM Foot Care Dm nail care Reason Onset Date Comments Antibiotic 09/20/2024 Reason Comments DM Foot Care Scheduled Active and Recently Administ ered Medications [...] dose, Jocelyne, Amber: cabinet override 1914 (Due) dextrose 50 % solution Starting on Fri06/04/21 at 1908, For 1 dose, Cord, Amber: cabinet override 1914 (Due) Care Teams (unrecognized sec tion and content) [employer] Relationship Specialty Start Date End Date Josh Pro MD [address] [place] [address] PCP - General Family Medicine 06/04/21 [employer] Relationship Specialty Start Date End Date Josh Pro MD [address] [place] [id number] PCP - General Family Medicine 09/02/24 [employer] Relationship Specialty Start Date End Date Josh Pro MD [address] [place] [id number] PCP - General Family Medicine 09/02/24 [employer] Relationship Specialty Start Date End Date Josh Pro MD [address] [place] [address] PCP - General Family Medicine 09/02/24 [employer] Super[employer] Relationship Specialty Start Date End Date Josh Pro MD [address] [place] [address] PCP - General Family Medicine 09/02/24 [employer] Super[employer] Relationship Specialty Start Date End Date Josh Pro MD [address] [place] [address] PCP - General Family Medicine 09/02/24 [employer] Relationship Specialty Start Date End Date Josh Pro MD [address] [place] [address] PCP - General Family Medicine 09/02/24 FOR [...] BE BASED ON THE PRIMARY CLINICAL RECORDS. [facility]. provides no warranty or guarantee of the accuracy or completeness of information in this document.
--- NOTE | 2025-04-01 09:48 | US_ITS ---
The [address] [address] Patient Name: MACKENZIE SKY MRN: [id number] date: 1955 Sex: M Assigned Patient Location: Current Patient Location: Accession/Order Number: [id number] Exam Date: 04/01/2025 09:57 Report Date: 04/01/2025 11:01 At the request of: DAVID PRO DO Procedure: US scrotum SCROTAL ULTRASOUND WITH DUPLEX IMAGING CLINICAL DATA: Left-sided swelling for the past 7 months. COMPARISON: None The right testis measures 3.3 x 1.5 x 2.4 cm. The left testis measures 4.1 x 1.9 x 2.0 cm. There is normal echogenicity. No intratesticular mass is identified. There is documentation of bilateral duplex and color Doppler testicular blood flow. The right epididymal head is better visualized than the left. There are no obvious acute associated findings. There is a possible right varicocele. A large left hydrocele is present measuring 7.7 x 7.5 x 7.2 cm in size. US/US scrotum IMPRESSION: NO INTRATESTICULAR MASS OR TORSION. LEFT HYDROCELE. Impression dictated by: Nancie Michael M.D. 04/01/2025 11:01 AM Dictation Location: [place] [address] Electronically authenticated by: [id number] Date: 04/01/2025 11:01
== END 2025-04-01 09:33 | disposition home or self-care (01) ==
PROVIDERS: PCP Family Medicine; Visit Provider Family Medicine
DX: N50.89 Other specified disorders of the male genital organs (principal); N43.3 Hydrocele, unspecified
CPT/HCPCS: 76870

== ENCOUNTER 2025-07-05 13:48 | Outpatient (OUT) | payer MEDICARE, SELFPAY ==
--- OUTSIDE RECORDS SUMMARY | 2024-05-27 05:00 | XMS_ITS ---
Author Organization [facility] [place] Address [address] [place] [address] Care Team Providers Care Laboratory Tester Name Role Phone Josh Talavera Primary Care Provider [phone] REASON FOR VISIT 6 month follow up Encounters Encounter Location Date Provider Diagnosis [facility] [address] [place] [address] 05/27/2024 Josh Talavera Plan Of Treatment Next Appt Details Provider Name:Julian Eddy , 09/07/2025 10:00:00 AM, [address], [place], [address], Provider Name:Josh pittman, 01/02/2026 10:00:00 AM, [address] [place], [address], Progress Notes * Nicholas SKY RDOB:1955 (69 yo M)Acc No.[id number]:05/27/2024 UNLOCKED PROGRESS NOTE Established Patient: Nicholas LEWIS :?Josh Talavera DODOB:1955???Age:68 Y ???Sex:MaleDate:05/27/2024hone:[phone]:[address], [place], [place] Subjective: * Chief Complaints: * 1 . 6 month follow up. * Medical History: Objective: * Vitals: Assessment: Plan: * Treatment: * * Electronic signature of Josh Talavera DO, [id number] on 07/05/2025 at 01:52 PM ESTSign off status: PendingVisit Status:?R/S (Rescheduled) * Provider: Dick Talavera DO Date: 07/27/2023 Generated for Printing/Faxing/eTransmitting on:?07/05/2025 01:52 PM EST
--- OUTSIDE RECORDS SUMMARY | 2025-07-04 05:30 | XMS_ITS ---
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 Phone Josh Talavera Primary Care Provider Results Component Value Reference Range Notes HEMOGLOBIN A1C - IN OFFICE Reviewed date:07/04/2025 11:17:53 AM Interpretation:7.7 Performing Lab: Notes/Report: 7.7 HEMOGLOBIN A1C - IN OFFICE 7.7 4.4 - 6.4 Reason For Referral Reason L earlobe skin ulcer - ?cancer Diagnosis 1 Non-pressure chronic ulcer of skin of other sites with unspecified severity (L98.499) Referral Organization [facility] Referring Provider First Name Josh Referring Provider Last Name Ilan [facility] Provider Specialty Dermatology Referral Priority Routine REASON FOR VISIT -3 Month Follow Up- Medications Medication SIG (Take, Route, Frequency, Duration) Notes Start Date End Date Status Farxiga 5 MG 1 tablet Orally Once a day; Dura tion: 30 days 07/15/2024UnknownFreeStyle Abdon Osceola -as directed; Duration: 30 days 02/17/2025Not-TakingFreeStyle Badon 3 Plus Sensor -as directed; Duration: 30 days02/17/2025Not-TakingFreeStyle Abdon 2 Sensor -USE DIRECTED AND CHANGE SENSOR EVERY 2 WEEKS; Duration: 28Not-TakingBD Pen Needle Short U/F 31G X 8 MM USE FOUR TIMES DAILY DIRECTED; Duration: 90Not-TakingOmeprazole 20 MG1 capsule 30 minutes before morning meal Orally Once a day; Duration: 90 days 4ActiveZyrTECActivePotassium Chloride ER 10 MEQ1 tablet with food Orally daily; Duration: 90 days5ActiveOzempic (0.25 or 0.5 MG/DOSE) 2 MG/3MLINJECT 0.5 MG UNDER THE SKIN ONCE EVERY WEEK Subcutaneous qweekly; Duration: 30 wkqlKwgsajWubmiu8L at HS3L at HSActiveMultivitaminActiveMetoprolol Tartrate 50 MG1 tablet with food Orally Twice a day; Duration: 90 daysActive Losartan Potassium 50 MG1 tablet Orally Once a day; Duration: 90 daysActive Latanoprost 0.005 %1 drop into affected eye in the evening Ophthalmic Once a day ActiveLantus SoloStar 100 UNIT/ML INJECT 65 UNITS UNDER THE SKIN EVERY MORNING AND 60 UNITS EVERY EVENING Subcutaneous daily; Duration: 90 days 15 pens for 30 days ActiveAtorvastatin Calcium 80 MG1 tablet Orally Once a day; Duration: 90 days ActivehydrALAZINE HCl 100 MG1 tablet with food Orally BID; Duration: 90 days ActiveGabapentin 600 MGTAKE 2 TABLETS BY MOUTH TWICE DAILY; Duration: 90Active Furosemide 40 MG1 tablet Orally bid; Duration: 90 daysActiveCPAPActiveAspirin 325 MG1 tablet Orally Once a dayActiveamLODIPine Besylate 10 MG1 tablet Orally Once a day; Duration: 90 daysActiveAllopurinol 100 MG2 tablets Orally Once a day; Duration: 90 days5Active Immunizations Vaccine Route Administration Date Status Comme nts Flu, Fluad (48268) 65 yrs and older, single-dose syringe () IM Intramuscular 07/04/2025 Administered Social History Tobacco Use: Social History Observation Description Date Details (start date - stop date) Never Smoker NA - NA Tobacco Control (Standard) Question Answer Notes Tobacco use: Nonsmoker Problems Problem Type SNOMED Code ICD Code Onset Dates Problem Status W/U Status Risk Notes Problem Chronic ulcer of skin (86520138) Non-pressure chronic ulcer of skin of other sites with unspecified severity (L98.499) Activeconfirmed Vital Signs Blood pressure systolic 142 mm Hg 07/04/20 25 Blood pressure diastolic 70 mm Hg 025 Heart Rate 71 /min 07/04/2025 Respiratory Rate 16 /min 07/04/2025 Height 69 in 07/04/2025 Weight 305.6 lbs 07/04/2025 BMI 45.12 kg/m2 07/04/2025 Oximetry 92 % 07/04/2025 Encounters Encounter Location Date Provider Diagnosis [facility] [address] [place] [address] 07/04/2025 Josh Talavera Type 2 diabetes mellitus with diabetic chronic kidney disease E11.22 ; Non-pressure chronic ulcer of skin of other sites with unspecified severity L98.499 and Encounter for immunization Z23 Assessments Encounter Date Diagnosis (ICD Code) Assessment Notes Treatment Notes Treatment Clinical Notes Section Notes 07/04/2025 Type 2 diabetes onel itus with diabetic chronic kidney disease (ICD-10 - E11.22) 07/04/2025Non-pressure chronic ulcer of skin of other sites with unspecified severity (ICD-10 - L98.499) pt to set up - referral order given ?plastics needed 07/04/2025Encounter for immunization (ICD-10 - Z23) Plan Of Treatment Treatment Notes Assessment Notes Non-pressure chronic ulcer o f skin of other sites with unspecified severity pt to set up - referral order given ?plastics needed Referrals Referral Date Details 07/04/2025 07/04/2025, L earlob e skin ulcer - ?cancer Next Appt Details Provider Name:Julian Eddy , 09/07/2025 10:00:00 AM, [address], [facility] [address], [place], [address], Provider Name:Josh pittman, 01/02/2026 10:00:00 AM, [address] [place], [address], Progress Notes * Nicholas SKY RDOB:1955 (69 yo M)Acc No.[id number]:07/04/2025 UNLOCKED PROGRESS NOTE Established Patient: Nicholas LEWIS :?Josh Talavera, DODOB:1955???Age:69 Y ???Sex:MaleDate:07/04/2025Phone:[phone]:[id number] [facility] KRYS Landa [id number] In:10:03 AM Helene Out:11:32 AM EST Subjective: * Chief Complaints: * 1 . -3 Month Follow Up-. * HPI: ???General:?pt presents today for 3 month f/u. pt states he woke up 3 weeks ago to blood on his pillow. he state she has a scab that keeps peeling back off and wont heal fully.-mv flu shot today? 6 weeks ago pt had blood on pillow and he has L outer earlobe with scabbed lesion that can bleed no f/c/URI s/s no cough BS 58-200 03/2025 A1c 7.9 occ neuropathy less low BS's with changing lantus at last appt a1c today - 7.7 see pic 8 x 5 mm blank referral given - pt to see derm at [facility] in [place] seeing urology - 09/2025 appt - still with L scrotal edema started after he took farxiga d/w opt increase ozempic - pt to hold? rtc 6 months. * ROS: ???General/Constitutional:?Significant change in weight?denies.?Exercise Intolerance?denies.?Night sweats?denies.?Fever?denies.?Eyes:?Dry eyes?Denies.?Vision changes?denies.?ENMT:?Sore Throat?denies.?Nose Bleeds?denies.?Difficulty hearing?denies.?Ear pain?denies.?Nose/sinus problems?denies.?Snoring?denies.?Bleeding gums?denies.?Dry mouth?denies.?Mouth ulcers denies.?Oral abnormalities?denies.?Teeth problems?denies.?Cardiovascular:?Shortness of Breath w/Walking?denies.?Shortness of Breath w/lying flat?denies.?Arm pain on exertion?denies.?Chest pain?denies. Heart murmur?denies.?Palpitations?denies.?Respiratory:?Coughing up blood?denies.?Cough?denies.?Shortness of breath?denies.?Wheezing?denies.?Gastrointestinal:?Change in appetite?denies.?Vomiting blood?denies.?Abdominal pain?denies.?Constipation?denies.?Diarrhea?denies.?Vomiting?denies.?Genitourinary:?Dysuria/Increased Frequency?denies.?Hematuria?den ies.?Incontinence?denies.?Difficulty urinating?denies.?Musculoskeletal:?Swelling in the extremities?denies.?Arthralgias/jointpain?Denies.?Back pain?denies.?Weakness of muscles?denies.?Muscle aches?denies.?Skin:?Jaundice?Denies.?Mole(s)?denies.?Rash?denies.?Neurologic:?Dizziness?denies.?Loss of consciousness?denies.&# 160;Numbness?denies.?Weakness?denies.?Headache?denies.?Seizures?denies.?Psychiatric:?Alcohol abuse?denies.?Feeling safe in relationship&#16 0;denies.?Depression?denies.?Anxiety?denies.?Sleep Disturbances?denies.?Endocrine:?Fatigue?denies.?Hematologic/Lymphatic:?Swollen Glands?denies.?Bruising?denies.?Allergy/Immunology:?Runny nose?denies.?Sinus pressure?denies.?Frequent sneezing?denies.?Hives?denies.?Itching?denies.? 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 * Surgical History: c atheterization of right heart 06/2019, knee arthroscopy/surgery-L knee meniscus repair , skin full graft sclp/arm/leg-L wallace 1991, sinus surgery procedure 1997, eye surgery 2016, carpal tunnel surgery 2001, shoulder joint surgery 2006, removal of tonsils- as a child , knee replacement 2013, colonoscopy-rec every 10 years+polyp 05/24/2020, cariac catheterization 12/06/2015, colonoscopy-diverticulosis 04/06/2008. * Hospitalization/Major Diagno stic Procedure: R tibia fx - 09/2023 . * Family History: M other: hyperlipidemia/cad. B rother(s): hyperlipidemia/cad. S ister(s): hyperlipidemia/cad/dm. M aternal Grandfather: malignant tumor of prostate. M aternal aunt: dm. * Social History: ???Tobacco Use:?Tobacco Control (Standard)?Tobacco use:?Nonsmoker ?Electronic Cigarette use?Current user?No * Medications: T aking Allopurinol 100 MG Tablet 2 tablets Orally Once a day , Taking amLODIPine Besylate 10 MG Tablet 1 tablet Orally Once a day , Taking Aspirin 325 MG Tablet 1 tablet Orally Once a day , Taking Atorvastatin Calcium 80 MG Tablet 1 tablet Orally Once a day , Taking CPAP , Taking Furosemide 40 MG Tablet 1 tablet Orally bid , Taking Gabapentin 600 MG Tablet TAKE 2 TABLETS BY MOUTH TWICE DAILY , Taking hydrALAZINE HCl 100 MG Tablet 1 tablet with food Orally BID , Taking Lantus SoloStar(Insulin Glargine) 100 UNIT/ML Solution Pen-injector INJECT 65 UNITS UNDER THE SKIN EVERY MORNING AND 60 UNITS EVERY EVENING Subcutaneous daily 15 pens for 30 days, Taking Latanoprost 0.005 % Solution 1 drop into affected eye in the evening Ophthalmic Once a day , Taking Losartan Potassium 50 MG Tablet 1 tablet Orally Once a day , Taking Metoprolol Tartrate 50 MG Tablet 1 tablet with food Orally Twice a day , Taking Multivitamin , Taking Omeprazole 20 MG Capsule Delayed Release 1 capsule 30 minutes before morning meal Orally Once a day , Taking Oxygen 3L at HS , Notes to Pharmacist: 3L at HS, Taking Ozempic (0.25 or 0.5 MG/DOSE)(Semaglutide(0.25 or 0.5MG/DOS)) 2 MG/3ML Solution Pen-injector INJECT 0.5 MG UNDER THE SKIN ONCE EVERY WEEK Subcutaneous qweekly , Taking Potassium Chloride ER 10 MEQ Tablet Extended Release 1 tablet with food Orally daily , Taking ZyrTEC , Not-Taking/PRN BD Pen Needle Short U/F(Insulin Pen Needle) 31G X 8 MM Miscellaneous USE FOUR TIMES DAILY DIRECTED , Not-Taking/PRN FreeStyle Abdon 2 Sensor(Continuous Glucose Sensor) - Miscellaneous USE DIRECTED AND CHANGE SENSOR EVERY 2 WEEKS , Not-Taking/PRN FreeStyle Abdon 3 Plus Sensor(Continuous Glucose Sensor) - Miscellaneous as directed , Not-Taking/PRN FreeStyle Abdon Osceola(Continuous Glucose Turf Manager) - Device as directed , Unknown Farxiga(Dapagliflozin Propanediol) 5 MG Tablet 1 tablet Orally Once a day , Medication List reviewed and reconciled with the patient Objective: * Vitals: W t:305.6lbs, Ht: 69 in, BP:142/70mm Hg, HR:71/min, RR:16/min, BMI:45.12Index, Oxygen sat %:92%, Ht-cm: 175.26 cm, Wt-k.62 kg. * Examination: ???General Examination: ?GENERAL APPEARANCE:?healthy Appearing , well nourished , well developed Level of distress: NAD,?ambulating normally.?ENMT:?no lesions on external ear, EACs clear, TMs clear, no hearing loss, no lesions on external ears, nares patent, nasal passages clear, no sinus tenderness, no nasal discharge, no mouth or lip ulcers, no bleeding gums, moist mucous membranes, no erythema,no exudates.?HEAD:?normocephalic, atraumatic.?EYES:?non-injected, no discharge, no pallor, PERRLA , EOMI, lens clear, sclera non-icteric, peripheral vision grossly intact, acuity grossly intact.?LUNGS:?no dyspnea, breath sounds normal , good air movement, CTA except as noted, no wheezing, no rales/crackles, no rhonchi.?CARDIO:?not displaced, RRR, S1, S2 normal , no murmurs, rubs, gallops , no carotid bruits, normal throughout.?ABDOMEN:?normal bowel sounds , soft, non tender, not distended, no guarding, no rebound tenderness, no masses, no CVA tenderness, liver non tender, no hepatomegaly.?BACK:?normal curvature.?MUSCULOSKELETAL:?normal motor strength, normal tone, normal movement of all extremities, no bony abnormalities, no contractures, no malalignment, no tenderness, no cyanosis, no edema, no varicosities.?SKIN:?no rash, no lesions, no ulcer, no abnormal nevi, no induration, no nodules, good turgor, no jaundice.?EXTREMITIES:? No edema.?NEUROLOGIC:?normal gait, normal station, cranial nerves grossly intact, sensation grossly intact, DTRs 2+ bilaterally throughout, no tremor.?PSYCH:?judgement and insight good, active and alert, normal mood, normal affect.?NECK/THYROID:?Neck supple, trachea midline, no masses, FROM, no cervical LAD, no supraclavicular LAD, no axillaryLAD, no inguinal LAD, no enlargement, non-tender, no nodules.? Assessment: * Assessment: 1.?Type 2 diabetes mellitus with diabetic chronic kidney disease - E11.22 (Primary)???2.?Non-pressure chronic ulcer of skin of other sites with unspecified severity - L98.499 ??3.?Encounter for immunization - Z23??? Plan: * Treatment: ?LAB: HEMOGLOBIN A1C - IN OFFICE (Collection Date & Time - 07/04/2025) 2.?Non-pressure chronic ulcer of skin of other sites with unspecified severity? Notes: pt to set up - referral order given ?plastics needed ? Referral To:Dermatology ?Reason:L earlobe skin ulcer - ?cancer * Immunizations: Flu, Fluad (11661) 65 yrs and older, single-dose syringe (3307-3193) : 0.5 mL (Route: Intramuscular) given by Tala Alvarez on Right Deltoid (Encounter for immunization) * Labs: * L ab: HEMOGLOBIN A1C - IN OFFICE (Collection Date & Time - 07/04/2025) 7 .7 ?ValueReference Range?HEMOGLOBIN A1C - IN OFFICE7.74.4 - 6.4 * Procedure Codes: 8 3036 HEMOGLOBIN; GLYCATED, Modifiers: QW , 47369 FLU VACCINE ADJUVANT IM, G0008 ADMIN. INFLUENZA * Images * mobile_07/04/2025 11:16:56 * Electronic signature of Josh Talavera DO, [id number] on 07/05/2025 at 10:46 AM ESTSign off status: PendingVisit Status:?CHK (Check Out) * Provider: Dick Talavera DO Date: Generated for Printing/Faxing/eTransmitting on:?07/05/2025 10:46 AM EST History and Physical Notes * Examination CategorySub-CategoryDetailNotesCategory NotesGeneral ExaminationGENERAL APPEARANCE:healthy Appearing , well nourished , well developed Level of distress: NAD, ambulating normallyEYES:non-injected, no discharge, no pallor, PERRLA , EOMI, lens clear, sclera non-icteric, peripheral vision grossly intact, acuity grossly intactCARDIO:not displaced, RRR, S1, S2 normal , no murmurs, rubs, gallops , no carotid bruits, normal throughoutLUNGS:no dyspnea, breath sounds normal , good air movement, CTA except as noted, no wheezing, no rales/crackles, no rhonchiABDOMEN:normal bowel sounds , soft, non tender, not distended, no guarding, no rebound tenderness, no masses, no CVA tenderness, liver non tender, no hepatomegalyNEUROLOGIC:normal gait, normal station, cranial nerves grossly intact, sensation grossly intact, DTRs 2+ bilaterally throughout, no tremorSKIN:no rash, no lesions, no ulcer, no abnormal nevi, no induration, no nodules, good turgor, no jaundiceEXTREMITIES:No edemaBACK:normal curvature MUSCULOSKELETAL:normal motor strength, normal tone, normal movement of all extremities, no bony abnormalities, no contractures, no malalignment, no tenderness, no cyanosis, no edema, no varicositiesPSYCH:judgement and insight good, active and alert, normal mood, normal affectENMT:no lesions on external ear, EACs clear, TMs clear, no hearing loss, no lesions on external ears, nares patent, nasal passages clear, no sinus tenderness, no nasal discharge, no mouth or lip ulcers, no bleeding gums, moist mucous membranes, no erythema, no exudatesHEAD:normocephalic, atraumaticNECK/THYROID:Neck supple, trachea midline, no masses, FROM, no cervical LAD, no supraclavicular LAD, no axillaryLAD, no inguinal LAD, no enlargement, non-tender, no nodules Consultation Request Notes Referral Date Referring Provider Referred Provider Not ed[place] 07/04/2025 Josh Talavera L earlobe sk in ulcer - ?cancer
--- OUTSIDE RECORDS SUMMARY | 2025-07-05 13:52 | XMS_ITS | Clinical Summary ---
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 Role Phone TalaveraJosh Primary Care Provider [phone] Allergies No known active allergies Medications MedicationSigDispense QuantityRefillsLast FilledStart DateEnd DateStatus allopurinol (Zyloprim) 100 mg tablet Take 1 tablet by mouth in the morning.03/28/2021ctive aspirin 81 mg EC tablet Take 1 tablet every day by oral route.Active gabapentin (Neurontin) 600 mg tablet Take 2 tablets by mouth in the morning and at bedtime.Active insulin detemir (Levemir U-100 Insulin) 100 unit/mL injection Levemir U-100 Insulin 100 unit/mL subcutaneous solution ADMINISTER 50 UNITS UNDER THE SKIN TWICE DAILYActive celecoxib (CeleBREX) 200 mg capsule 1 capsule every 12 (twelve) hours.Active insulin glargine-yfgn 100 unit/mL (3 mL) insulin pen insulin glargine-yfgn (U-100) 100 unit/mL (3 mL) subcutaneous pen ADMINISTER 75 UNITS UNDER THE SKIN TWICE DAILYActive insulin NPH and regular human (HumuLIN 70/30 U-100 Insulin) 100 unit/mL (70-30) injection Humulin 70/30 U-100 Insulin 100 unit/mL subcutaneous suspension ADMINISTER 75 UNITS UNDER THE SKIN TWICE DAILYActive amLODIPine (Norvasc) 10 mg tablet Indications:Benign hypertensive heart disease with heart failure (CMS/HCC)Take 1 tablet (10 mg) by mouth in the morning. 90 tablet ctive atorvastatin (Lipitor) 80 mg tablet Indications:Mixed hyperlipidemiaTake 1 tablet (80 mg) by mouth at bedtime. 90 tablet ctive furosemide (Lasix) 40 mg tablet Indications:Benign hypertensive heart disease with heart failure (CMS/HCC)Take 1 tablet (40 mg) by mouth in the morning. 90 tablet ctive hydrALAZINE (Apresoline) 100 mg tablet Indications:Benign hypertensive heart disease with heart failure (CMS/HCC)Take 1 tablet (100 mg) by mouth two times daily. 180 tablet ctive losartan (Cozaar) 50 mg tablet Indications:Benign hypertensive heart disease with heart failure (CMS/HCC)Take 1 tablet (50 mg) by mouth once daily as directed. 90 tablet ctive metoprolol tartrate (Lopressor) 50 mg tablet Indications:Benign hypertensive heart disease with heart failure (CMS/HCC)Take 1 tablet (50 mg) by mouth in the morning and at bedtime. 180 tablet ctive furosemide (Lasix) 40 mg tablet Indications:Acute combined systolic and diastolic heart failure (CMS/HCC)Take 1 tablet (40 mg) by mouth two times daily. 180 tablet //6Active potassium chloride CR (Klor-Con M10) 10 mEq ER tablet Indications:HypokalemiaTAKE 1 TABLET(10 MEQ) BY MOUTH DAILY DIRECTED. DO NOT CRUSH OR CHEW 90 tablet 5Active potassium chloride CR (Klor-Con M10) 10 mEq ER tablet Indications:HypokalemiaTake 1 tablet (10 mEq) by mouth once daily as directed. Do not crush or chew. 90 tablet Discontinued Active Problems ProblemNoted DateDiagnosed DateBiceps wzgldehcry14/11/2024eripheral venous oxxviflsnmkej903Chronic renal /23/2022 Cardiovascular stress test tnmgnrmo42/23/6523Asmdazxpn58/23/2022upuytren's disease of palm05/29/2022egeneration of intervertebral disc05/29/2022ain in upper limb05/29/2022Hypertensive /23/2022Edema of lower extremity 05/29/20228085Bjejyef80/23/2022Ulnar jidgbrxzwf30/23/2022Chronic obstructive lung szdpdsg2406/10/2019Diastolic heart jctaght8306/10/2019Obstructive sleep apnea ryeqkqlu33/05/1777Ileawpr99/05/2019Positive D-dimer06/10/2019Disorder of lipid dnqztvrrec39/02/2014enign essential gdhtpxdqxiph06/03/2014Type 2 diabetes mellitus without cposwhyuqqbd25/03/2014Carpal tunnel dkewlxnd62/17/2013 Ponkdrdyoijt30/17/2013rachial iewquzsn84/17/2013Shoulder joint pain07/22/2012 Coronary teasuxpeutofiddk89/11/3476Gyiuralquitesp82/11/2012Gastroesophageal reflux jjvozgv2006/11/2012Type 1 diabetes /06/2012 Encounters DateTypeDepartmentCare FlawCeloxqfjufg77/15/2025[facility] [address] [place] [address] Rachele Whelan CNP Hypokalemiafrom Last 3 Months Family History Medical HistoryRelationNameCommentsCABGBrotherCoronary artery diseaseBrother RelationNameStatusCommentsBrother Social History Tobacco UseTypesPacks/DayYears UsedDateSmoking Tobacco: NeverSmokeless Tobacco: Never Tobacco Cessation:Counseling Given: Not Answered Alcohol UseStandard Drinks/WeekCommentsNot Currently0 (1 standard drink = 0.6 oz pure alcohol)PHQ-2AnswerDate RecordedPatient Health Questionnaire-2 Score0 12/30/2022UT Safety & EnvironmentAnswerDate RecordedFear of Current or Ex-PartnerNot on file08/28/2023Emotionally AbusedNot on file08/28/2023hysically AbusedNot on file08/28/2023Sexually AbusedNot on file08/28/2023hysically or Sexually AbusedNot on file08/28/2023Sex and Gender InformationValueDate Recorded Sex Assigned at IpapeXbku34/23/2025 2:42 PM ESTLegal CwdVbgp7601/02/2022 10:07 PM EDTGender GdjpjgerTvtq71/23/2025 2:42 PM ESTSexual OrientationHeterosexual or Mhphnevq35/23/2025 2:42 PM EST Last Filed Vital Signs Vital SignReadingTime TakenCommentsBlood Wzjhxaci018/6406/16/2024 11:23 AM EST Uabjh589806/16/2024 11:23 AM ESTTemperature--Respiratory Rate--Oxygen Saturation 94%06/16/2024 11:23 AM ESTInhaled Oxygen Concentration--Qmbdvg207 kg (310 lb) 06/16/2024 11:23 AM ZKOLzmgnn695.3 cm (5' 9 )06/16/2024 11:23 AM ESTBody Mass Index45.7806/16/2024 11:23 AM EST Plan of Treatment DateTypeDepartmentCare Team (Latest Contact Info)Hiixnnrftye07/31/2025 11:15 AM ESTOffice Visit [facility] [address] [place] [address] Ramón Reeder MD [address] [facility] [place] [address] Health MaintenanceDue DateLast DoneCommentsCT Fbobnokvabkx23/12/1955Colonoscopy 5Colorectal Cancer Pekhnvcbj40/12/1955FIT-DNA1954FIT1954 FOBT1954Medicare Annual Wellness (AWV)1955 8515Puoemtjehmmcl73/12/1955 Diabetes: Retinopathy Wsjzqzfhy16/12/1965Depression Uohkaecal74/12/1967Diabetes: Urine Protein Qpdkeaxxr17/12/1974Adult Rvhtfbo6707/18/1976Zoster Vaccines (1 of 2) 2004Fall Risk Iguscaftu86/12/2020Diabetes: Hemoglobin A1C09/12/2019 06/13/2019COVID-19 Vaccine ( season)2025Pneumococcal Vaccine: 50+ OyiblPoltlbdxg95/11/2021, 02/02/2016Influenza LquwcovXfkneianf34/29/2025, 04/08/2024, 04/24/2023, Additional history existsHIB VaccinesAged OutNo longer eligible based on patient's age to complete this topicHPV VaccinesAged OutNo longer eligible based on patient's age to complete this topicIPV VaccinesAged OutNo longer eligible based on patient's age to complete this topicMeningococcal B VaccineAged OutNo longer eligible based on patient's age to complete this topicMeningococcal VaccineAged OutNo longer eligible based on patient's age to complete this topicRotavirus VaccinesAged OutNo longer eligible based on patient's age to complete this topic Procedures Procedure NamePriorityDate/TimeAssociated DiagnosisCommentsHEMOGLOBIN S2VLkpgq 06/13/2019 5:41 AM EST from Last 3 Months or Most Recently Relevant to Health Maintenance Results * (ABNORMAL) Hemoglobin A1C (06/13/2019 5:41 AM EST)ComponentValueRef RangeTest MethodAnalysis TimePerformed AtPathologist SignatureHemoglobin A1C8.1(H)4.0 - 6.0 %LAB CONVERSIONSEstimated Average Dwoskfj026(H)70 - 126 mg/dLLAB CONVERSIONSSpecimen (Source)Anatomical Location / LateralityCollection Method / VolumeCollection TimeReceived Time06/13/2019 5:41 AM EST06/13/2019 6:03 AM EST Narrative LAB CONVERSIONS - 06/13/2019 12:14 PM EST No: Do not add to previous draw Authorizing ProviderResult TypeResult StatusSea Voss MDLAB BLOOD ORDERABLESFinal ResultPerforming OrganizationAddressCity/State/ZIP CodePhone Number LAB CONVERSIONS from Last 3 Months or Most Recently Relevant to Health Maintenance Insurance * Guarantor: Nicholas Dumont TypeRelation to PatientDate of BirthPhone Billing AddressPersonal/TybfegEyjh10/[birth year][address] [address] Care Teams Team MemberRelationshipSpecialtyStart DateEnd Date Josh Talavera DO [address] [place] [address] (work) [facility] - Gthzuil75/23/22
--- OUTSIDE RECORDS SUMMARY | 2025-07-05 13:52 | XMS_ITS | Clinical Summary ---
Author Organization [employer] [facility] tem Address [id number] [place] [address] Care Team Providers Care Rhinestone Setter Name Role Phone TalaveraJosh Devon ADAM Primary Care Provider [phone] Allergies No known active allergies Medications MedicationSigDispense QuantityRefillsLast FilledStart DateEnd DateStatus multivit-min/ferrous fumarate (MULTI VITAMIN ORAL) Multi VitaminActive allopurinoL (ZYLOPRIM) 100 mg tablet Take 100 mg by mouth daily.05/03/2020Active aspirin 81 mg daily.Active atorvastatin (LIPITOR) 80 mg tablet atorvastatin 80 mg tabletActive ezetimibe-simvastatin (VYTORIN) 10-20 mg per tablet daily.Active furosemide (LASIX) 40 mg tablet Take 40 mg by mouth daily.04/14/2020Active gabapentin (NEURONTIN) 600 mg tablet gabapentin 600 mg tabletActive hydroCHLOROthiazide (HYDRODIURIL) 25 mg tablet daily.Active lisinopriL (PRINIVIL,ZESTRIL) 20 mg tablet daily.Active losartan (COZAAR) 50 mg tablet losartan 50 mg tabletActive metoprolol tartrate (LOPRESSOR) 25 mg tablet metoprolol tartrate 25 mg tabletActive amLODIPine-atorvastatin (CADUET) 10-10 mg per tablet Take 1 tablet by mouth daily.Active latanoprost (XALATAN) 0.005 % ophthalmic solution 1 drop nightly.Active Active Problems No known active problems Social History Tobacco UseTypesPacks/DayYears UsedDateSmoking Tobacco: NeverSmokeless Tobacco: NeverChildcareAnswerDate MqpyizoiPvjjeyfjaFsphcds04/20/2020EmploymentAnswerDate IjnjxwnoIsdkxtpsazGebjjrt86/20/2020Purpose - LifeAnswerDate RecordedPurpose and direction in mvfhFrsfmbu31/11/2021Sex and Gender InformationValueDate Recorded Sex Assigned at BirthNot on fileLegal WkgHvsy6702/09/2015 11:24 AM EDTGender IdentityNot on fileSexual OrientationNot on file Last Filed Vital Signs Vital SignReadingTime TakenCommentsBlood Qqtadnru599/7805/31/2020 10:03 AM EST Pulse--Rxaafxcwdry40.6 ??C (97.8 ??F)05/31/2020 10:03 AM ESTRespiratory Rate-- Oxygen Saturation--Inhaled Oxygen Concentration--Pwrwwa180.2 kg (320 lb) 05/31/2020 10:03 AM ORLIjiiiy857.3 cm (5' 9 )05/31/2020 10:03 AM ESTBody Mass Index47.26107/31/2019 10:03 AM EST Plan of Treatment Health MaintenanceDue DateLast DoneCommentsDepression Celwbpbpv95/12/1967Tobacco Gwukkotxe87/12/1967Adult BMI Raglmvqfz67/12/1973DTaP,Tdap and Td Vaccines (1 - Tdap)1973Zoster (Shingles) Vaccine (1 of 2)2004Fall Risk Screening 2019Influenza Oynguji4203/07/2025RSV ( or age 60+ yrs) (1 - 1-dose 75+ series)07/18/20296346Eywbgdtwmzl44 Medical Devices Not on file Insurance Care Teams Team MemberRelationshipSpecialtyStart DateEnd Date Josh Talavera DO [address] [place] [address] PCP - GeneralFamily Qmnvyrbp70/25/20
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
--- OUTSIDE RECORDS SUMMARY | 2025-07-05 13:53 | XMS_ITS | Clinical Summary ---
Author Organization [facility] Address [address], [address] [place] [address] Care Team Providers Care Manager Of Regulatory Affairs Name Role Phone Josh Talavera MD Primary Care Provider [phone] Allergies No known active allergies Medications MedicationSigDispense QuantityRefillsLast FilledStart DateEnd DateStatus metoprolol tartrate (LOPRESSOR) 50 MG tablet TAKE 1 TABLET BY MOUTH TWICE DAILY04/16/2021ctive metoprolol tartrate (LOPRESSOR) 50 MG tablet metoprolol tartrate 50 mg tablet TAKE 2 TABLET BY MOUTH TWICE DAILYActive amLODIPine (NORVASC) 10 MG tablet amlodipine 10 mg tablet TAKE 1 TABLET BY MOUTH EVERY DAYActive allopurinol (ZYLOPRIM) 100 MG tablet TAKE 1 TABLET BY MOUTH EVERY DAY03/28/2021ctive furosemide (LASIX) 40 MG tablet furosemide 40 mg tablet TAKE 1 TABLET BY MOUTH EVERY DAYActive atorvastatin (LIPITOR) 80 MG tablet atorvastatin 80 mg tablet TAKE 1 TABLET BY MOUTH DAILYActive gabapentin (NEURONTIN) 600 MG tablet gabapentin 600 mg tablet TAKE 2 TABLETS BY MOUTH TWICE DAILYActive aspirin 81 MG EC tablet Aspir-81 mg tablet,delayed release Take 1 tablet every day by oral route.Active insulin 70-30 (HUMULIN 70/30) (70-30) 100 UNIT per ML injection vial Humulin 70/30 U-100 Insulin 100 unit/mL subcutaneous suspension ADMINISTER 75 UNITS UNDER THE SKIN TWICE DAILYActive metoprolol succinate (TOPROL XL) 100 MG extended release tablet Take 100 mg by mouth dailyActive losartan (COZAAR) 25 MG tablet Take 25 mg by mouth dailyActive latanoprost (XALATAN) 0.005 % ophthalmic solution 1 drop nightlyActive insulin lispro (HUMALOG) 100 UNIT/ML injection vial Inject into the skin 3 times daily (before meals) 10 units if neededActive Social History Tobacco UseTypesPacks/DayYears UsedDateSmoking Tobacco: NeverSmokeless Tobacco: NeverAlcohol UseStandard Drinks/WeekCommentsNever0 (1 standard drink = 0.6 oz pure alcohol)Sex and Gender InformationValueDate RecordedSex Assigned at Not on fileLegal JmaOgfh9408/16/2012 4:55 PM ESTGender IdentityNot on fileSexual OrientationNot on file Last Filed Vital Signs Vital SignReadingTime TakenCommentsBlood Wyqhajll005/6606/04/2021 7:20 PM EST Vxwxs247306/04/2021 7:12 PM HYRTpqaezvypxe06.9 ??C (96.7 ??F)06/04/2021 7:26 PM ESTRespiratory Zczo846108/04/2020 7:12 PM ESTOxygen Ujndypovpc91%06/04/2021 7:18 PM ESTInhaled Oxygen Concentration--Weight--Height--Body Mass Index-- Plan of Treatment Not on file Insurance Care Teams Team MemberRelationshipSpecialtyStart DateEnd Date Josh Talavera MD [address] [place] [id number] PCP - GeneralFamily Egyrfhse58/29/21
--- OUTSIDE RECORDS SUMMARY | 2025-07-05 13:53 | XMS_ITS | Patient Health Record ---
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 Name Role Phone Ilan Josh Primary Care Provider Jv De Santiago [phone] Allergies No Known Allergies Results Component Value Reference Range Notes HEMOGLOBIN A1C - IN OFFICE Reviewed date:07/04/2025 11:17:53 AM Interpretation:7.7 Performing Lab: Notes/Report: 7.7 HEMOGLOBIN A1C - IN OFFICE 7.7 4.4 - 6.4 HEMOGLOBIN A1C - IN OFFICE Reviewed date:04/06/2025 09:33:49 AM Interpretation: Performing Lab: Notes/Report: HEMOGLOBIN A1C - IN OFFICE7.94.4 - 6.4US Scrotum w/Limited Duplex Reviewed date:04/06/2025 09:33:49 AM Interpretation: Performing Lab: Notes/Report: Reason For Referral Reason eval and treat for t esticular hydrocele Diagnosis 1 Hydrocele, unspecifi ed (N43.3) Referral Organization [facility] Referring Provider First Name Josh Referring Provider Last Name Ilan Referring Provider Speciality Family Med icine Referred Organization [facility] Referred Provider Julian Eddy Referred Address [address],[place], [place],[address],[place] Referred Provider Specialty Urology Referral Priority Routine Reason L earlobe skin ulcer - ?cancer Diagnosis 1 Non-pressure chronic ulcer of skin of other sites with unspecified severity (L98.499) Referral Organization [facility] Referring Provider First Name Josh Referring Provider Last Name Ilan Referring Provider Speciality [facility] Referred Provider Specialty Dermatology Referral Priority Routine Medications Medication SIG (Take, Route, Frequency, Duration) Notes Start Date End Date Status Allopurinol 100 MG 2 tablets Orally Once a day; Duration: 90 days 01/12/2025tiveLatanoprost 0.005 %1 drop into affected eye in the evening Ophthalmic Once a dayActiveFreeStyle Abdon 3 Plus Sensor -as directed; Duration: 30 02/17/2025Not-TakingLantus SoloStar 100 UNIT/ML INJECT 65 UNITS UNDER THE SKIN EVERY MORNING AND 60 UNITS EVERY EVENING Subcutaneous daily; Duration: 90 days 15 pens for 30 days ActiveFreeStyle Abdon 2 Sensor -USE DIRECTED AND CHANGE SENSOR EVERY 2 WEEKS; Duration: 28Not-TakinghydrALAZINE HCl 100 MG1 tablet with food Orally BID; Duration: 90 daysActiveBD Pen Needle Short U/F 31G X 8 MMUSE FOUR TIMES DAILY DIRECTED; Duration: 90Not-TakingGabapentin 600 MGTAKE 2 TABLETS BY MOUTH TWICE DAILY; Duration: 90ActiveZyrTECActiveFurosemide 40 MG1 tablet Orally bid; Duration: 90 daysActivePotassium Chloride ER 10 MEQ1 tablet with food Orally daily; Duration: 90 days5ActiveCPAPActiveOzempic (0.25 or 0.5 MG/DOSE) 2 MG/3MLINJECT 0.5 MG UNDER THE SKIN ONCE EVERY WEEK Subcutaneous qweekly; Duration: 30 czsvXarmsbBbhaqg4R at HS3L at HSActiveAtorvastatin Calcium 80 MG1 tablet Orally Once a day; Duration: 90 daysActiveAspirin 325 MG1 tablet Orally Once a dayActiveOmeprazole 20 MG1 capsule 30 minutes before morning meal Orally Once a day; Duration: 90 days4ActiveMultivitaminActiveamLODIPine Besylate 10 MG1 tablet Orally Once a day; Duration: 90 daysActiveMetoprolol Tartrate 50 MG1 tablet with food Orally Twice a day; Duration: 90 daysActive Farxiga 5 MG1 tablet Orally Once a day; Duration: 30 07/15/2024Unknown Losartan Potassium 50 MG1 tablet Orally Once a day; Duration: 90 daysActive FreeStyle Abdon [place] -as directed; Duration: 30 5Not-Taking Immunizations Vaccine Route Administration Date Status Comme nts DTP - historic Unknown 12/30/2020 Administered Flu, Fluad (0380-7931) (13571) 65 yrs+, single-dose syringeIM Intramuscular 04/15/2022dministeredFlu, Fluad (4514-0797) (26148) 65 yrs+, single-dose syringeIM Bqkzocylbebch06/19/2023dministeredFlu, Fluad (36085) 65 yrs and older, single-dose syringe (9865-2545)IM Nhoefjrodudep36/03/2024dministeredFlu, Fluad (42269) 65 yrs and older, single-dose syringe (8047-4987)IM Intramuscular 07/04/2025dministeredPneumococcal (Pneumovax 23)Hyckhmg3104/16/2021dministered Pneumococcal (Prevnar 13)Txjlbdc2602/02/20160563UmihamfrmfykTfkkVrciilh03/25/2021 Administered Social History Tobacco Use: Social History Observation Description Date Details (start date - stop date) Never Smoker NA - NA Tobacco Control (Standard) Question Answer Notes Tobacco use: Nonsmoker Problems Problem Type SNOMED Code ICD Code Onset Dates Problem Status W/U Status Risk Notes Problem Essential hypertension (32350022 ) Essential (primary) hypertension (I10) ActiveconfirmedProblemGastro-esophageal reflux disease without esophagitis (903367873)Gastro-esophageal reflux disease without esophagitis (K21.9)Active confirmedProblemDiabetic renal disease (772558844)Type 2 diabetes mellitus with diabetic chronic kidney disease (E11.22)ActiveconfirmedProblemDiabetic renal disease (939984692)Type 2 diabetes mellitus with other diabetic kidney complication (E11.29)ActiveconfirmedProblemHypoglycemia due to type 2 diabetes mellitus (675233368506087)Type 2 diabetes mellitus with hypoglycemia without coma (E11.649)ActiveconfirmedProblemMorbid obesity (disorder) (472392439)Morbid (severe) obesity due to excess calories (E66.01)ActiveconfirmedProblemIdiopathic sleep related non-obstructive alveolar hypoventilation (763899681)Idiopathic sleep related nonobstructive alveolar hypoventilation (G47.34)Activeconfirmed ProblemChronic pain (76347179)Other chronic pain (G89.29)ActiveconfirmedProblem Hearing loss (66599745)Unspecified hearing loss, bilateral (H91.93)Active confirmedProblemChronic diastolic heart failure (766827303)Chronic diastolic (congestive) heart failure (I50.32)ActiveconfirmedProblemDilatation of aorta (68131907)Thoracic aortic ectasia (I77.810)ActiveconfirmedProblemChronic respiratory failure (20779530)Chronic respiratory failure with hypoxia (J96.11) ActiveconfirmedProblemChronic respiratory failure (81812290)Chronic respiratory failure with hypercapnia (J96.12)ActiveconfirmedProblemChronic ulcer of skin (75889654)Non-pressure chronic ulcer of skin of other sites with unspecified severity (L98.499)ActiveconfirmedProblemLong-term current use of insulin (615975723)buttermaker continuous churn (current) use of insulin (Z79.4)ActiveconfirmedProblem Hypertension (79730822)Hypertension (I10)ActiveconfirmedProblemSleep apnea (80115459)Sleep apnea (G47.30)ActiveconfirmedProblemObstructive sleep apnea syndrome (54044012)IMAN (obstructive sleep apnea) (G47.33)ActiveconfirmedProblem Neuropathy (088171598)Neuropathy (G62.9)ActiveconfirmedProblemDiabetes mellitus type 2 (disorder) (67258979)DM2 (diabetes mellitus, type 2) (E11.9)Active confirmedProblemPolyneuropathy due to type 2 diabetes mellitus (032997869) Diabetic polyneuropathy associated with type 2 diabetes mellitus (E11.42)Active confirmedProblemLumbar spondylosis (076996135)Lumbar spondylosis (M47.816)Active confirmedProblemExtreme obesity with alveolar hypoventilation (371151374)Obesity hypoventilation syndrome (E66.2)ActiveconfirmedProblemContracture of palmar fascia (121629572)Dupuytren's contracture of both hands (M72.0)Activeconfirmed ProblemChronic gouty arthritis (02296794)Chronic gout without tophus, unspecified cause, unspecified site (M1A.9XX0)ActiveconfirmedProblemPure hypercholesterolemia (635050007)Pure hypercholesterolemia (E78.00)Active confirmedProblemProliferative diabetic retinopathy due to type II diabetes mellitus (4413375174978)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, bilateral (E11.3553)ActiveconfirmedProblemChronic kidney disease stage 3A (disorder) (131652135)Chronic kidney disease, stage 3a (N18.31) ActiveconfirmedProblemChronic kidney disease stage 3B (disorder) (427546489) Chronic kidney disease, stage 3b (N18.32)ActiveconfirmedProblemBody mass index 40+ - severely obese (195253400)Body mass index [BMI] 45.0-49.9, adult (Z68.42) ActiveconfirmedProblemBody mass index 40+ - severely obese (151130900)Body mass index [BMI] 40.0-44.9, adult (Z68.41)Activeconfirmed Vital Signs Heart Rate 71 /min 07/04/2025 Vhamselgulu50.0 degrees Kjdynsrkfk38/12/2025Respiratory Rate16 /min07/04/2025 Xojswqpg31 %07/04/2025lood pressure delrwjnvm16 mm Hg07/04/20256559Mkuuhs61 in 07/04/2025lood pressure uxsjesxb656 mm Hg07/04/20251317Emwayc334.6 lbs1MI 45.12 kg/m207/04/2025 Encounters Encounter Location Date Provider Diagnosis [facility] [address] [place] [address] 03/25/2025 Josh Talavera Type 2 diabetes onel itus with diabetic chronic kidney disease E11.22 ; Morbid (severe) obesity due to excess calories E66.01 ; Body mass index [BMI] 45.0-49.9, adult Z68.42 ; Other specified disorders of the male genital organs N50.89 ; Chronic respiratory failure with hypercapnia J96.12 and Unspecified hearing loss, bilateral H91.93 [facility] [address] [place] [address] 02/24/2025 Josh Talavera Other specified diso rders of the male genital organs N50.89 ; Morbid (severe) obesity due to excess calories E66.01 ; Body mass index [BMI] 45.0-49.9, adult Z68.42 and Diarrhea, unspecified R19.7 [facility] [address] [place] [address] 07/04/2025 Josh Bennettring Type 2 diabetes onel itus with diabetic chronic kidney disease E11.22 ; Non-pressure chronic ulcer of skin of other sites with unspecified severity L98.499 and Encounter for immunization Z23 [facility] [address] [place] [address] 08/18/2024 Jv De Santiago IMAN (obstructive sle ep apnea) G47.33 ; Obesity hypoventilation syndrome E66.2 ; Chronic respiratory failure with hypoxia J96.11 ; Chronic respiratory failure with hypercapnia J96.12 and Morbid (severe) obesity due to excess calories E66.01 [facility] [address] [place] [address] 12/23/2024 Josh Bennettring Encounter for Medica re annual wellness exam Z00.00 ; Diabetic polyneuropathy associated with type 2 diabetes mellitus E11.42 ; Other specified disorders of the male genital organs N50.89 ; Morbid (severe) obesity due to excess calories E66.01 ; Body mass index [BMI] 45.0-49.9, adult Z68.42 ; Type 2 diabetes mellitus with diabetic chronic kidney disease E11.22 ; Pure hypercholesterolemia E78.00 ; IMAN (obstructive sleep apnea) G47.33 ; Essential (primary) hypertension I10 ; Chronic gout without tophus, unspecified cause, unspecified site M1A.9XX0 ; Chronic kidney disease, stage 3a N18.31 ; half-way (current) use of insulin Z79.4 ; 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, bilateral E11.3553 ; Chronic diastolic (congestive) heart failure I50.32 ; Gastro-esophageal reflux disease without esophagitis K21.9 ; Hypokalemia E87.6 ; Type 2 diabetes mellitus with other diabetic kidney complication E11.29 ; Proteinuria, unspecified R80.9 ; Benign lipomatous neoplasm of skin and subcutaneous tissue of trunk D17.1 and Idiopathic sleep related nonobstructive alveolar hypoventilation G47.34 [facility] [address] [place] [address] 03/22/2025 Josh Bennettring Pure hypercholestero lemia E78.00 [facility] [address] [place] [address] 03/26/2025 Josh Talavera [facility] [place] [address]/08/2024Danierwin HerringType 2 diabetes mellitus with diabetic chronic kidney disease E11.22 [facility] [place] [address]/[facility] [place] [address]/09/2024 Josh HerringType 2 diabetes mellitus with diabetic chronic kidney disease E11.22 and Chronic diastolic (congestive) heart failure I50.32[facility] [place] [address]/11/2024Danierwin BennettringType 2 diabetes mellitus with diabetic chronic kidney disease E11.22[facility] [address] [place] [address]/04/2025[facility] [place] [address]/01/2025Danierwin BennettTalavera Type 2 diabetes mellitus with diabetic chronic kidney disease E11.22[facility] [place] [address]/03/2025[facility] [place] [address]/10/2024[facility] [place] [address]/ [facility] [address] [place] [address] 02/28/2025[facility] [place] [address]/03/2025Danierwin [facility] Assessments Encounter Date Diagnosis (ICD Code) Assessment Notes Treatment Notes Treatment Clinical Notes Section Notes 08/18/2024 IMAN (obstructive sleep apnea) (I CD-10 - G47.33) Zlyj-xc-cgnd encounter performed with the patient to document continued need for PAP therapy. -DME: MISSY -PS12/12/2015; Initial AHI: 55 -Last PAP titration 07/14/2019: BiPAP @ 14/41xvZ1A -Compliance was reviewed from 07/19/2024 - 08/17/2024 [...] bedtime and with any naps. -Note: This tzrq-ld-jnzn visit comes with my authorization that the patient's DME may request to renew, reorder, and/or replace tubing, supplies, mask, and/or PAP device (if applicable). 08/18/2024Obesity hypoventilation syndrome (ICD-10 - E66.2) Treated with BiPAP. Complinance is great as above. 12/23/2024Diabetic polyneuropathy associated with type 2 diabetes mellitus (ICD- 10 - E11.42) restart ozempic - it was stopped at the end of last year due to cost bs check daily rtc 3 months - a1c then - goal <7 diet/exercise eye exam yearly - dilated foot exam daily uncontrolled continue statin oars ok 12/23/2024Encounter for Medicare annual wellness exam (ICD-10 - Z00.00) rec flu shot yearly rec rsv vaccine rec dtap q10 years rec pn vaccine q5 years rec shingrix rtc 1 year labs yearly diet/exercise eye and dental exams yearly colonoscopy in 202903/25/2025Type 2 diabetes mellitus with diabetic chronic kidney disease (ICD-10 - E11.22) bs check daily rtc 3 months - a1c then eye exam yearly - dilated foot exam daily diet/exercise uncontrolled but improved today rec increasing ozempic to 1mg qweek - pt to hold off adjust lantus to 65 am and 60 pm to eliminate occ hypoglycemia 03/25/2025Morbid (severe) obesity due to excess calories (ICD-10 - E66.01) diet/exercise due to DM/HTN 02/24/2025Morbid (severe) obesity due to excess calories (ICD-10 - E66.01) diet/stlduxub16/21/2025Other specified disorders of the male genital organs (ICD-10 - N50.89) rec testicular US ?hydrocele/varicocele/infection/hernia pt to monitor 07/04/2025Type 2 diabetes mellitus with diabetic chronic kidney disease (ICD-10 - E11.22)07/04/2025Non-pressure chronic ulcer of skin of other sites with unspecified severity (ICD-10 - L98.499) pt to set up - referral order given ?plastics needed 10/11/2024Type 2 diabetes mellitus with diabetic chronic kidney disease (ICD-10 - E11.22)03/22/2025Pure hypercholesterolemia (ICD-10 - E78.00)04/07/2025Type 2 diabetes mellitus with diabetic chronic kidney disease (ICD-10 - E11.22) 06/08/2025Type 2 diabetes mellitus with diabetic chronic kidney disease (ICD-10 - E11.22)06/10/2025Type 2 diabetes mellitus with diabetic chronic kidney disease (ICD-10 - E11.22)5Chronic diastolic (congestive) heart failure (ICD-10 - I50.32)02/24/2025ody mass index [BMI] 45.0-49.9, adult (ICD-10 - Z68.42) 07/04/2025Encounter for immunization (ICD-10 - Z23)03/25/2025ody mass index [BMI] 45.0-49.9, adult (ICD-10 - Z68.42)12/23/2024Other specified disorders of the male genital organs (ICD-10 - N50.89) rec testicular US b/l - call if wishes erx doxy for possible infection 5Chronic respiratory failure with hypoxia (ICD-10 - J96.11) Bwkf-dj-aggo encounter performed with the patient to document [...] tanks & lines, smoke inhalation and flame dam age to the airway, significant linda, potential , property damage, and potential harm & to bystanders. Additionally, counseled it is not negrete to begin, restart, or continue smoking given the underlying pulmonary disease that led to the point of requiring O2.-Recommendations: ContinueO2 @ 2L/min bleed-in 08/18/2024hronic respiratory failure with hypercapnia (ICD-10 - J96.12) Prior testing: --ABG 06/15/2019: On RA- pH 7.45, pCO2 60, PaO2 49--ABG 06/11/2019: On 3L/min- pH 7.38, pCO2 70, PaO2 63 Associated with OHS. Treated with BiPAP - AHI 0.6. No evidence of acute hypercapnia. 12/23/2024Morbid (severe) obesity due to excess calories (ICD-10 - E66.01) diet/ybfsopcg23/19/2025Other specified disorders of the male genital organs (ICD-10 - N50.89) set up US tx based on results - ?urology referral ?hydrocele 02/24/2025Diarrhea, unspecified (ICD-10 - R19.7) monitor as no diarrhea recently call if recurs hydrate 12/23/2024ody mass index [BMI] 45.0-49.9, adult (ICD-10 - Z68.42)03/25/2025 Chronic respiratory failure with hypercapnia (ICD-10 - J96.12) rec weight loss continue 3L NC oxygen at HS f/u pulm as directed pt to call with where to send supplies for his oxygen 08/18/2024Morbid (severe) obesity due to excess calories (ICD-10 - E66.01) Patient's weight is inducing a restrictive pulmonary physiology. Weight loss indicated: Decrease calories, increase activity. 12/23/2024Type 2 diabetes mellitus with diabetic chronic kidney disease (ICD-10 - E11.22) uncontrolled see above bmp and urine yearly 03/25/2025Unspecified hearing loss, bilateral (ICD-10 - H91.93) rec debrox otc rtc removal of wax if wishes d/w pt that I dont think his wax is all of his hearing loss rec flonase daily for possible eustachian tube dysfunction causing his hearing to be worse 12/23/2024Pure hypercholesterolemia (ICD-10 - E78.00) labs yearly diet/exercise LDL goal <70 controlled 12/23/2024OSA (obstructive sleep apnea) (ICD-10 - G47.33) f/u pulm as directed CPAP qhs rec weight loss 12/23/2024Essential (primary) hypertension (ICD-10 - I10) controlled bp check daily goal <130/80 diet/exercise bmp and urine yearly rtc 6 months 5Chronic gout without tophus, unspecified cause, unspecified site (ICD- 10 - M1A.9XX0) uncontrolled call for gout flare ups increase allopurinol to 200mg daily - if needs higher than we may need to do uloric due to CKD 12/23/2024hronic kidney disease, stage 3a (ICD-10 - N18.31) stable rec neph monitor bmp bp/bs control rec jardiance 12/23/2024Long term (current) use of insulin (ICD-10 - Z79.4)12/23/2024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, bilateral (ICD-10 - E11.3553) uncontrolled see above 12/23/2024hronic diastolic (congestive) heart failure (ICD-10 - I50.32) f/u cardio as directed elevate legs rec weight loss prob mid flare up - unstable 12/23/2024Gastro-esophageal reflux disease without esophagitis (ICD-10 - K21.9) stable rec weight loss diet rtc 1 year 12/23/2024Hypokalemia (ICD-10 - E87.6) start rx K due to lasix bid use now monitor bmp 12/23/2024Type 2 diabetes mellitus with other diabetic kidney complication (ICD- 10 - E11.29) uncontrolled see above 12/23/2024Proteinuria, unspecified (ICD-10 - R80.9) uncontrolled monitor urine microalbumin yearly continue losartan - ?increase if worsens but will need to monitor CKD bs/bp control 5Benign lipomatous neoplasm of skin and subcutaneous tissue of trunk (ICD-10 - D17.1)call if wishes referral to dr reina for qqshbvd1412/23/2024 Idiopathic sleep related nonobstructive alveolar hypoventilation (ICD-10 - G47.34) rec weight loss f/u pulm as directed continue oxygen at HS Plan Of Treatment Pending Test Test Name Order Date CMP (COMPLETE METABOLIC PANEL) 3 MICROALBUMIN with ALB/CREAT RATIO, URINE (MALB)) 04/24/2023 PTH INTACT (PARATHYROID HORMONE) 023 VITAMIN D, 25 LEVEL (TOTAL) 04/24/2023 Next Appt Details Provider Name:Julian Eddy , 09/07/2025 10:00:00 AM, [address], [place], [address], Provider Name:Josh pittman, 01/02/2026 10:00:00 AM, [address] [place], [address], Insurance Providers Payer Name Payer Address Payer Phone Subscriber Number Group Number Insured Name Patient Relationship to Insured Coverage Start Date Coverage End Date [employer]AGE [address] [address] [place] [address] [id number] Juliannaabigail Nicholas Self - patient is the insured 2 Medical (General) History Medical History History ICD Code microalbuminuria due to type 2 diabetes mellitus lumbar spondylosispulomnary hypertensionperipheral vascular diseaselipoma of head and neckchronic kidney disease stage 3diverticular disease of coloncoronary arteriosclerosisretinal hemorrhageproliferative retinopathy due to diabetes mellitus-bilateral with macular edemauncomplicated umbilical herniagout hypertensive disorderhyperlipidemiaOSA (obstructive sleep apnea)G47.33Chronic diastolic CHF (congestive heart failure)I50.32Chronic respiratory failure with tajwqfdG64.11Chronic respiratory failure with zpzavfgluwaV95.12Obesity hypoventilation uoruhruwI96.2Surgical History Surgery Date(Month/Year) cariac catheterization 12/06/2015 colonoscopy-rec every 10 years+polyp knee replacement 2014 removal of tonsils- as a child colonoscopy-qpvqqhocrknmfr13/01/2008shoulder joint ftojzyp8862ycgvln tunnel pgdaryt0928blf kzlbltf7899kkel full graft sclp/arm/leg-L ezxy1818cauv arthroscopy/surgery-L knee meniscus repaircatheterization of right heart06/2019 sinus surgery lesswmqeo6594Devhtyuuirgmjiv History Reason Date(Month/Year) R tibia fx - 09/2023
--- OUTSIDE RECORDS SUMMARY | 2025-07-05 13:53 | XMS_ITS | Clinical Summary ---
Author Organization 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 Name Role Phone Josh Talavera MD Primary Care Provider + [phone] Allergies No known active allergies Medications MedicationSigDispense QuantityRefillsLast FilledStart DateEnd DateStatus allopurinol (Zyloprim) 100 MG tablet Take 100 mg by mouth in the morning.Active amLODIPine (Norvasc) 10 MG tablet Take 10 mg by mouth in the morning.06/03/2022ctive aspirin 81 MG EC tablet Take 81 mg by mouth in the morning.Active celecoxib (CeleBREX) 200 MG capsule Take 200 mg by mouth every 12 (twelve) hours.Active ezetimibe-simvastatin (Vytorin) 10-20 MG tablet Take 1 tablet by mouth in the morning.Active furosemide (Lasix) 40 MG tablet Take 40 mg by mouth in the morning.Active gabapentin (Neurontin) 600 MG tablet Take 600 mg by mouth in the morning.Active hydrALAZINE (Apresoline) 50 MG tablet Take 50 mg by mouth in the morning and 50 mg before bedtime.Active hydroCHLOROthiazide (HYDRODiuril) 25 MG tablet Take 25 mg by mouth in the morning.Active insulin detemir (Levemir) 100 UNIT/ML injection Inject 100 mL under the skin in the morning.Active insulin NPH-insulin regular (HumuLIN 70/30) (70-30) 100 UNIT/ML injection Inject 100 mL under the skin in the morning.Active latanoprost (Xalatan) 0.005 % ophthalmic solution Administer 1 drop into both eyes 1 (one) time each day at the same time.Active losartan (Cozaar) 50 MG tablet Take 50 mg by mouth in the morning.Active atorvastatin (Lipitor) 80 MG tablet Take 80 mg by mouth in the morning.01/29/2023ctive insulin glargine-yfgn (Semglee-yfgn) 100 UNIT/ML pen ADMINISTER 75 UNITS UNDER THE SKIN TWICE DAILYActive lisinopril 20 MG tablet Take 1 tablet by mouth in the morning.Active metoprolol tartrate (Lopressor) 50 MG tablet Take 1 tablet by mouth in the morning and 1 tablet before bedtime.Active amoxicillin (Amoxil) 500 MG tablet Indications:History of total knee replacement, unspecified laterality4 tabs PO once 30-60 mins before procedure with food 4 tablet 3035Active amoxicillin (Amoxil) 500 MG tablet Indications:History of total knee replacement, unspecified laterality4 tabs PO once 30-60 mins before procedure with food 4 tablet 3045Active Active Problems ProblemNoted DateDiagnosed DateDiabetic rzaewprncaynee08/24/2023eripheral venous cpsqqduarldzh75/24/2023 Encounters DateTypeDepartmentCare LszoZlzlpupvvir13/23/2025 10:20 AM EDTOffice Visit [facility] [address] [facility] [address] [place] [id number] Jeffry Garces DPM Diabetes mellitus due to underlying condition with diabetic polyneuropathy, with long-term current use of insulin (HCC) (Primary Dx); Pain due to onychomycosis of toenails of both feet04/28/2025amboo flowsheet [facility] [address] [facility] [address] [place] [address] Jeffry Garces DPM 04/28/2025Travelfrom Last 3 Months Family History Medical HistoryRelationNameCommentsHeart diseaseFatherArthritisMotherHeart diseaseMotherHypertensionMotherRelationNameStatusCommentsFatherDeceasedMother Social History Tobacco UseTypesPacks/DayYears UsedDateSmoking Tobacco: NeverPassive Smoke Exposure: NeverSmokeless Tobacco: Never Tobacco Cessation:Counseling Given: Yes Alcohol UseStandard Drinks/WeekCommentsNever0 (1 standard drink = 0.6 oz pure alcohol)Sex and Gender InformationValueDate RecordedSex Assigned at BirthMale 10/16/2023 9:04 AM EDTLegal VpeDruj9109/18/2022 8:32 PM EDTGender IdentityMale 10/16/2023 9:04 AM EDTSexual OrientationNot on file Last Filed Vital Signs Vital SignReadingTime TakenCommentsBlood Ddheygfg126/8010 12:00 PM EDT Lykbg1588 12:00 PM EDTTemperature--Respiratory Bedo8362 9:49 AM EDTOxygen Saturation--Inhaled Oxygen Concentration--Irblly352 kg (316 lb) 04/28/2025 9:49 AM RDUGxbmjw814.3 cm (5' 9 )04/28/2025 9:49 AM EDTBody Mass Index46.6704/28/2025 9:49 AM EDT Plan of Treatment DateTypeDepartmentCare Team (Latest Contact Info)Egffyosycau74/15/2026 11:30 AM ESTOffice Visit [facility] [address] [facility] [address] [place] [id number] Jeffry Garces, DPPaula [address] [facility] [address] [place] [address] Insurance * Guarantor: Keena Dmuont TypeRelation to PatientDate of BirthPhone Billing AddressPersonal/MsgqhhNcxo72/12/1956 [address] [address] * Guarantor: Keena Dumont TypeRelation to PatientDate of BirthPhone Billing AddressPersonal/KpldnnQulh72/12/1956 [address] [place] [address] Care Teams Team MemberRelationshipSpecialtyStart DateEnd Date Josh Talavera MD [address] [place] [id number] PCP - GeneralFamily Medicine09/02/24
[2025-07-05 14:30] LABS: Anion Gap 7.1; Blood Urea Nitrogen 30.0 mg/dL (7.0-18.0); Calcium 8.3 mg/dL (8.5-10.1); Carbon Dioxide 35.7 mmol/L (21.0-32.0); Chloride 104 mmol/L (98-107); Estimated GFR (African America 55 (>=60 mL/min/1.73m^2); Estimated GFR (Non-African Ame 46 (>=60 mL/min/1.73m^2); Glucose 129 mg/dL (74-106); Potassium 3.8 mmol/L (3.5-5.1); Sodium 143 mmol/L (136-145)
--- OUTSIDE RECORDS SUMMARY | 2025-07-05 15:27 | XMS_ITS | CCD ---
Author Organization [facility] Inform ion Partnership [facility] Care Team Providers Care Sampler Radioactive Waste Name Role Phone Eufemia Voss Admitting Unavailable Eufemia Voss Attending Unavailable JOSH PRO Primary Care Unavailable CRIS HERRING Referring Unavailable [place] Procedure Practitioner Unavailab REEMA Moreira ABD Surgeon Unavailable [place] Procedure Practitioner Unavailab VANESSA Moreno Surgeon Unavailable [place] Procedure Practitioner Unavailab Eufemia Espinoza Surgeon Unavailable Josh Pro MD Primary [...] Provider UnavailJosh Harp MD Primary Care Provider [phone] MICH WHELAN Attending Unavailable JEFFRY GARCES Attending Unavailable JEFFRY GARCES Attending Unavailable JEFFRY GARCES Attending Unavailable JEFFRY GARCES Attending Unavailable JEFFRY GARCES Attending Unavailable Allergies Allergy ClassificationReported Allergen(s)Allergy TypeDate of OnsetReaction(s) Facility (1 source)47448,00; Translations: [Unknown]Propensity to adverse reactions (disorder)97-90-8545Syb [facility] Repository Medications Current Medications MedicationDrug Class(es)DatesSig (Normalized)Sig (Original)allopurinol 100 mg oral tablet (20 sources)Xanthine Oxidase InhibitorStart: 46-77-3682yklg 1 tablet by mouth once dailyallopurinol (ZYLOPRIM) 100 MG tablet TAKE 1 TABLET BY MOUTH EVERY DAY 0 03/28/2021 ActiveamLODIPine 10 mg oral tablet (20 sources)Dihydropyridine Calcium Channel BlockerStart: 98-09-4783rcgz 1 tablet by mouth in the morningamLODIPine (Norvasc) 10 MG tablet Take 10 mg by mouth in the morning. 06/03/2022 Activetake 1 tablet by mouth once daily amLODIPine (NORVASC) 10 MG tablet amlodipine 10 mg tablet TAKE 1 TABLET BY MOUTH EVERY DAY 0 Activeamoxicillin 500 mg oral tablet (19 sources)Penicillin-class AntibacterialStart: 04-19-6077siob 4 tablets by mouth once at mealtimeamoxicillin (Amoxil) 500 MG tablet Indications: History of total knee replacement, unspecified laterality 4 tabs PO once 30-60 mins before procedure with food 4 tablet 3 10/19/2024 Activeaspirin 81 mg delayed release oral tablet (20 sources)Platelet Aggregation Inhibitor, Nonsteroidal Anti-inflammatory Drug take 1 tablet by mouth in the morningaspirin 81 MG EC tablet Take 81 mg by mouth in the morning. Activeatorvastatin 80 mg oral tablet (20 sources)HMG-CoA Reductase InhibitorStart: 47-07-5777fdol 1 tablet by mouth in the morningatorvastatin (Lipitor) 80 MG tablet Take 80 mg by mouth in the morning. 01/29/2023 Activetake 1 tablet by mouth once dailyatorvastatin (LIPITOR) 80 MG tablet atorvastatin 80 mg tablet TAKE 1 TABLET BY MOUTH DAILY 0 Activecelecoxib 200 mg oral capsule (19 sources)Nonsteroidal Anti-inflammatory Drugtake 1 capsule by mouth every twelve hourscelecoxib (CeleBREX) 200 MG capsule Take 200 mg by mouth every 12 (twelve) hours. Activeezetimibe 10 mg / simvastatin 20 mg oral tablet (19 sources)HMG-CoA Reductase Inhibitor, Dietary Cholesterol Absorption Inhibitortake 1 tablet by mouth in the morningezetimibe-simvastatin (Vytorin) 10-20 MG tablet Take 1 tablet by mouth in the morning. Activefurosemide 40 mg oral tablet (20 sources)Loop Diuretictake 1 tablet by mouth in the morningfurosemide (Lasix) 40 MG tablet Take 40 mg by mouth in the morning. Activegabapentin 600 mg oral tablet (20 sources)Anti-epileptic Agenttake 1 tablet by mouth in the morninggabapentin (Neurontin) 600 MG tablet Take 600 mg by mouth in the morning. Activetake 2 tablets by mouth twice dailygabapentin (NEURONTIN) 600 MG tablet gabapentin 600 mg tablet TAKE 2 TABLETS BY MOUTH TWICE DAILY 0ActivehydrALAZINE hydrochloride 50 mg oral tablet (19 sources)Arteriolar Vasodilatortake 1 tablet by mouth in the morning hydrALAZINE (Apresoline) 50 MG tablet Take 50 mg by mouth in the morning and 50 mg before bedtime. ActivehydroCHLOROthiazide 25 mg oral tablet (19 sources)Thiazide Diuretictake 1 tablet by mouth in the morning hydroCHLOROthiazide (HYDRODiuril) 25 MG tablet Take 25 mg by mouth in the morning. Activeinsulin detemir 100 unt/ml injectable solution (19 sources)Insulin Analoginsulin detemir (Levemir) 100 UNIT/ML injection Inject 100 mL under the skin in the morning. Activeinsulin glargine-yfgn (Semglee- yfgn) 100 UNIT/ML pen (19 sources)insulin glargine-yfgn (Semglee-yfgn) 100 UNIT/ML pen ADMINISTER 75 UNITS UNDER THE SKIN TWICE DAILYActiveinsulin isophane, human 70 unt/ml / insulin, regular, human 30 unt/ml injectable suspension (20 sources)Insulininsulin NPH-insulin regular (HumuLIN 70/30) (70-30) 100 UNIT/ML injection Inject 100 mL under the skin in the morning. Activeinject 75 [IU] by subcutaneous injection twice daily, then inject 100 [IU] by subcutaneous injection onceinsulin 70-30 (HUMULIN 70/30) (70-30) 100 UNIT per ML injection vial Humulin 70/30 U-100 Insulin 100 unit/mL subcutaneous suspension ADMINISTER 75 UNITS UNDER THE SKIN TWICE DAILY 0 Activeinsulin lispro 100 unt/ml injectable solution (1 source)Insulin Analoginsulin lispro (HUMALOG) 100 UNIT/ML injection vial Inject into the skin 3 times daily (before meals) 10 units if needed 0 Active latanoprost 0.05 mg/ml ophthalmic solution (20 sources)Prostaglandin Analogtake 1 drop(s) into the eye(s) once daily latanoprost (Xalatan) 0.005 % ophthalmic solution Administer 1 drop into both eyes 1 (one) time each day at the same time. Activetake 1 drop(s) into the eye(s) once dailylatanoprost (XALATAN) 0.005 % ophthalmic solution 1 drop nightly 0 Activelisinopril 20 mg oral tablet (19 sources)Angiotensin Converting Enzyme Inhibitortake 1 tablet by mouth in the morninglisinopril 20 MG tablet Take 1 tablet by mouth in the morning. Active losartan potassium 50 mg oral tablet (20 sources)Angiotensin 2 Receptor Blockertake 1 tablet by mouth in the morning losartan (Cozaar) 50 MG tablet Take 50 mg by mouth in the morning. Activetake 1 tablet by mouth once dailylosartan (COZAAR) 25 MG tablet Take 25 mg by mouth daily 0 Activemetoprolol tartrate 50 mg oral tablet (20 sources)beta-Adrenergic BlockerStart: 34-41-0105qwuu 1 tablet by mouth twice dailymetoprolol tartrate (LOPRESSOR) 50 MG tablet TAKE 1 TABLET BY MOUTH TWICE DAILY 0 04/16/2021 Activetake 1 tablet by mouth once dailymetoprolol succinate (TOPROL XL) 100 MG extended release tablet Take 100 mg by mouth daily 0 Active take 2 tablets by mouth twice dailymetoprolol tartrate (LOPRESSOR) 50 MG tablet metoprolol tartrate 50 mg tablet TAKE 2 TABLET BY MOUTH TWICE DAILY 0 Active Completed/Discontinued Medications MedicationDrug Class(es)DatesSig (Normalized)Sig (Original)insulin glargine 100 unt/ml injectable solution (1 source)Insulin Analog End: 70-49-2032mrqvtum glargine (LANTUS) 100 UNIT/ML injection vial Inject into the skin nightly 0 06/04/2021 Discontinued (LIST CLEANUP)50 ml sodium chloride 9 mg/ml injection (1 source)Start: 06-04-2021 End: .9 % sodium chloride bolus Problems Active Problems Problem ClassificationProblemDateDocumented DateEpisodic/ChronicCongestive heart failure; nonhypertensive (4 sources)Chronic diastolic (congestive) heart failure; Translations: [CHRONIC DIASTOLIC HEART FAILURE]Onset: 95-88-2482DfojyizYbuowtjw mellitus with complications (20 sources)Diabetic mononeuropathy; Translations: [Type 2 diabetes mellitus with diabetic mononeuropathy]Onset: [id number] of lipid metabolism (3 sources)Mixed hyperlipidemia; Translations: [Other hyperlipidemia]Onset: 69-82-3623UinomkiSmacemsfr hypertension (1 source)Essential (primary) hypertension; Translations: [ESSENTIAL PRIMARY HYPERTENSION]Onset: 44-11-5613OueqlzeRseo and other crystal arthropathies (4 sources)Gout, unspecified; Translations: [GOUT UNSPECIFIED]Onset: 04-08-2022 ChronicHypertension with complications and secondary hypertension (2 sources)Hypertensive heart disease with heart failure; Translations: [Hypertensive heart disease with heartfailure]Onset: 75-17-1900EhhukbdNwnnepc (12 sources)Pain in toe; Translations: [Tinea unguium]76-70-0302TqpgeonhMnqax connective tissue disease (1 source)History of total knee arthroplasty; Translations: [Presence of unspecified artificial knee joint]89-33-9858QrdxohnGifce endocrine disorders (1 source)Hypoglycemia; Translations: [Hypoglycemia, unspecified]ChronicOther screening for suspected conditions (not mental disorders or infectious disease) (1 source)Encounter for screening for malignant neoplasm of prostate; Translations: [ENC SCREEN MALIG NEOPLASM PROSTATE]Onset: 35-78-8924Wfjojzxk Past or Other Problems Problem ClassificationProblemDateDocumented DateEpisodic/ChronicOther connective tissue disease (2 sources)Pain of toes of bilateral feet; Translations: [Pain in right toe(s)] 00-46-4264ZargdmqdKjrae diseases of veins and lymphatics (19 sources)Peripheral venous insufficiency; Translations: [Venous insufficiency (chronic) (peripheral)]Onset: 850294-87-4523Xediefpr Results Test NameValueInterpretationReference OhcdlStidmkar83ha 29-60-495709Fyicsztcs lab results from 12/15/2024: KALEY Vargas MA [...] leave a message. I will try back tomorrow.[facility]36on [id number] echo result from 11/24/2024: Mich Whelan, KALEY [...] week. Patient verbalized understanding. Orders faxed to [facility] CenterOffice Visiton 37-21-2584Huuvbq-up [id number] Mackenzie Dumont 1955 M Date Provider Department Center 06/16/2024 MICH MOREJON [facility] Family History Problem Relation Age of Onset Coronary artery disease Brother Other Brother Family Status - Relation Status Age at Brother Level of Service:[address] [place] OFFICE/OUTPATIENT ESTABLISHED LOW MDM 20 MIN Reason for Visit and Comments: Coronary Artery Disease [187] Congestive Heart Failure [127] Hypertension [546309][facility] CenterLIPID PROFILEon 91-65-8284SBUP-HDL RATIO NORMSEE [facility] HospitalComment on above:Result Comment: 3.3 - 4.4 LOW RISK 4.4 - 7.1 AVERAGE RISK 7.1 - 11.0 MODERATE RISK >11.0 HIGH RISKPerformed By: #### URIC, LIPID, CMP #### [facility] [address] [address] [address] Constantin Manceraesterol [Mass/Vol]127 mg/dLNormal<=200[facility] Comment on above:Performed By: #### URIC, LIPID, CMP #### [facility] [address] [address] [address] Constantin YepezCholesterol in HDL [Mass/Vol]39 mg/dLCritically jhr64-90BjoFirelands Regional Medical CenterComment on above:Performed By: #### URIC, LIPID, CMP #### [facility] [address] [address] [address] Constantin Manceraesterol in LDL [Mass/Vol]65.0 mg/dLClinton Memorial HospitalComment on above:Performed By: #### URIC, LIPID, CMP #### [facility] [address] [place] [address] Dr. Constantin Thayer.total/Cholesterol in HDL [Mass ratio]3.3 {ratio} NormalThe [facility] HospitalComment on above:Performed By: #### URIC, LIPID, CMP #### [facility] [address] [place] [address] Dr. Constantin Webb NORMAL> or = 60 mg/dl - LOW CARDIOVASCULAR RISK <40 mg/dl - HIGH CARDIOVASCULAR RISKClinton Memorial HospitalComment on above:Performed By: #### URIC, LIPID, CMP #### [facility] [address] [place] [address] Dr. Constantin Lewis CALC NORMALSEE BELOWClinton Memorial HospitalComment on above:Result Comment: <100 mg/dl OPTIMAL 100 - 129 mg/dl NEAR OR ABOVE OPTIMAL 130 - 159 mg/dl BORDERLINE HIGH 160 - 189 mg/dl HIGH >190 mg/dl VERY HIGH Performed By: #### URIC, LIPID, CMP #### [facility] [address] [place] [address] Dr. Constantin YepezTriglyceride [Mass/Vol]115 mg/dLNormal<=150The [facility] Comment on above:Performed By: #### URIC, LIPID, CMP #### [facility] [address] [place] [address] Dr. Constantin Chao CALC23.0 mg/dLNoCleveland Clinic Akron General Lodi HospitalComment on above: Performed By: #### URIC, LIPID, CMP #### [facility] [address] [place] [address] Dr. Constantin Jacobs 14(COMP METB)on 24-01-0874Kelququ [Mass/Vol]3.4 g/dLNormal 3.4-5.0Fire[facility] Medical CenterComment on above:Performed By: #### URIC, LIPID, CMP #### [facility] [address] [address] [address] Constantin YepezAlbumin/Globulin [Mass ratio]1.0 {ratio}NormalThe [facility] HospitalComment on above:Performed By: #### URIC, LIPID, CMP #### [facility] [address] [address] [address] Constantin SumnerP [Catalytic activity/Vol]66 U/WSpcymk87-549Xjo [facility] HospitalComment on above:Performed By: #### URIC, LIPID, CMP #### [facility] [address] [address] [address] Constantin SumnerT [Catalytic activity/Vol]28 U/WRocgzr89-73Ifg [facility] HospitalComment on above:Performed By: #### URIC, LIPID, CMP #### [facility] [address] [address] [address] Constantin Thorpeon gap [Moles/Vol]11.6 mmol/LNormalThe [facility] Comment on above:Performed By: #### URIC, LIPID, CMP #### [facility] [address] [address] [address] Constantin YepezAST [Catalytic activity/Vol]13 U/LCritically ydj32-90Ovw [facility] on above:Performed By: #### URIC, LIPID, CMP #### [facility] [address] [address] [address] Constantin YepezBilirubin [Mass/Vol]0.5 mg/dLNormal0.2-1.0The [facility] Comment on above:Performed By: #### URIC, LIPID, CMP #### [facility] [address] [address] [address] Constantin YepezCalcium [Mass/Vol]8.6 mg/dLNormal8.5-10.1The [facility] Comment on above:Performed By: #### URIC, LIPID, CMP #### [facility] [address] [address] [address] Constantin YepezChloride [Moles/Vol]108 mmol/LCritically qdmp69-897Ryv [facility] HospitalComment on above:Performed By: #### URIC, LIPID, CMP #### [facility] [address] [place] [address] Dr. Constantin YepezCO2 [Moles/Vol]30.0 mmol/PGqmzpb61.0-32.0[facility] Comment on above:Performed By: #### URIC, LIPID, CMP #### [facility] [address] [place] [address] Dr. Constantin YepezCreatinine [Mass/Vol]1.39 mg/dLCritically high0.70-1.30[facility] CenterComment on above:Performed By: #### URIC, LIPID, CMP #### [facility] [address] [place] [address] Dr. Constantin CutlerGFR-AF ETHIOPIAN>60Normal>=60[facility] CenterComment on above:Performed By: #### URIC, LIPID, CMP #### [facility] [address] [place] [address] Dr. Constantin CutlerGFR-NON AF PNHYPDTF17 mL/min/1.24p8Wblxqaiajz low>=60[facility] CenterComment on above:Performed By: #### URIC, LIPID, CMP #### [facility] [address] [place] [address] Dr. Constantin YepezGlobulin (S) [Mass/Vol]3.5 g/dLNormalThe [facility] HospitalComment on above:Performed By: #### URIC, LIPID, CMP #### [facility] [address] [place] [address] Dr. Constantin YepezGlucose [Mass/Vol]77 mg/aUBuiqpu42-422IccFirelands Regional Medical Center Comment on above:Performed By: #### URIC, LIPID, CMP #### [facility] [address] [place] [address] Dr. Constantin YepezPotassium [Moles/Vol]3.6 mmol/LNormal3.5-5.1[facility] Comment on above:Performed By: #### URIC, LIPID, CMP #### [facility] [address] [place] [address] Dr. Constantin YepezProtein [Mass/Vol]6.9 g/dLNormal6.4-8.2The [facility] Comment on above:Performed By: #### URIC, LIPID, CMP #### [facility] [address] [address] [address] Constantin YepezSodium [Moles/Vol]146 mmol/LCritically jbrc128-122Wkk [facility] HospitalComment on above:Performed By: #### URIC, LIPID, CMP #### [facility] [address] [address] [address] Constantin YepezUrea nitrogen [Mass/Vol]24.0 mg/dLCritically high7.0-18.0The [facility] HospitalComment on above:Performed By: #### URIC, LIPID, CMP #### [facility] [address] [place] [address] Dr. Constantin YepezUrea nitrogen/Creatinine [Mass ratio]17.3 mg/mgNormalThe [facility] HospitalComment on above:Performed By: #### URIC, LIPID, CMP #### [facility] [address] [place] [address] Dr. Constantin YepezURIC ACID SERUMon 48-53-8450Cecof [Mass/Vol]6.3 mg/dLNormal 3.5-7.2The [facility] HospitalComment on above:Performed By: #### URIC, LIPID, CMP #### [facility] [address] [place] [address] Dr. Constantin YepezPROF CHEM 8 (BAS METB)on 87-20-2195Aepts gap [Moles/Vol]7.6 mmol/LNormalThe [facility] HospitalComment on above:Performed By: #### BMP #### [facility] [address] [place] [address] Dr. Constantin YepezCalcium [Mass/Vol]8.3 mg/dLCritically low8.5-10.1The [facility] HospitalComment on above:Performed By: #### BMP #### [facility] [address] [place] [address] Dr. Constantin YepezChloride [Moles/Vol]107 mmol/HOawzdf39-925Bbc [facility] Comment on above:Performed By: #### BMP #### [facility] [address] [address] [address] Constantin YepezCO2 [Moles/Vol]31.9 mmol/JSmtxyi28.0-32.0The [facility] Comment on above:Performed By: #### BMP #### [facility] [address] [address] [address] Constantin YepezCreatinine [Mass/Vol]1.62 mg/dLCritically high0.70-1.30The [facility] HospitalComment on above:Performed By: #### BMP #### [facility] [address] [address] [address] Constantin CutlerGFR-AF DIFIPESM10 mL/min/1.38x7Mmisfaebpc low>=60The [facility] HospitalComment on above:Performed By: #### BMP #### [facility] [address] [address] [address] Constantin CutlerGFR-NON AF DCHVVPDX20 mL/min/1.47h9Idhucygurh low>=60The [facility] HospitalComment on above:Performed By: #### BMP #### [facility] [address] [address] [address] Constantin YepezGlucose [Mass/Vol]97 mg/xQGjtjap79-314XgcFirelands Regional Medical Center Comment on above:Performed By: #### BMP #### [facility] [address] [address] [address] Constantin YepezPotassium [Moles/Vol]4.5 mmol/LNormal3.5-5.1[facility] Comment on above:Performed By: #### BMP #### [facility] [address] [address] [address] Constantin YepezSodium [Moles/Vol]142 mmol/XNpeyrk320-981UzuFirelands Regional Medical Center Comment on above:Performed By: #### BMP #### [facility] [address] [address] [address] Constantin YepezUrea nitrogen [Mass/Vol]30.0 mg/dLCritically high7.0-18.0The [facility] HospitalComment on above:Performed By: #### BMP #### [facility] [address] [address] [address] Constantin YepezUrea nitrogen/Creatinine [Mass ratio]18.5 mg/mgNoCleveland Clinic Akron General Lodi HospitalComment on above:Performed By: #### BMP #### [facility] [address] [address] [address] Constantin YepezArterial Blood Gaseson 50-44-8662Pavcu TestPASSNoClinton Memorial Hospital HospitalComment on above:Performed By: #### ABG #### [facility] [address] [place] [address] [place] [address] Joint Cleaning Machine Operator: Velma Abraham Temp.37.0NormCleveland Clinic Medina HospitalComment on above:Performed By: #### ABG #### [facility] [address] [place] [address] Dr. Garcia, [facility] Joint Cleaning Machine Operator: Stevan Kenrs MDHCO3 (Bld) [Moles/Vol]29.7 mmol/DIgbn31-82TxrupUniversity Hospitals Beachwood Medical CenterComment on above:Performed By: #### ABG #### [facility] [address] [place] [address] Dr. Garcia, [place] [id number] Joint Cleaning Machine Operator: Stevan Kerns MDO2 Device/Flow/%O2 MaskNoLicking Memorial Hospital Comment on above:Performed By: #### ABG #### [facility] [address] [place], [place] [id number] Joint Cleaning Machine Operator: Stevan Kerns MDOxygen (Bld) [Partial pressure]87.4 mm[Hg]Normal 80-100[facility] Beachwood Medical CenterComment on above:Performed By: #### ABG #### [facility] [address] [place] [address] [place] [address] Joint Cleaning Machine Operator: Stevan Kerns MDOxygen saturation in Blood96.1 %Oexcwm47-10OykadUniversity Hospitals Beachwood Medical CenterComment on above:Performed By: #### ABG #### [facility] [address] [place] [address] Dr. Garcia, [place] [id number] Joint Cleaning Machine Operator: Aidee AbrahamCO255.2 olFqUpvj31-24Yeorz [facility]iff[facility] HospitalComment on above:Performed By: #### ABG #### [facility] [address] [place] [address] Dr. [place], [place] [phone] Joint Cleaning Machine Operator: Aidee Abraham (Bld)7.348 [pH]Low7.35-7.45[facility] HospitalComment on above:Performed By: #### ABG #### [facility] [address] [place] [address] Dr. Garcia, [place] [phone] Joint Cleaning Machine Operator: Aron Abrahamtive Base Excess2.6 mmol/LHigh0.0-2.0[facility] Medical CenterComment on above:Performed By: #### ABG #### [facility] [address] [place] [address] Dr. [place], [place] [phone] Joint Cleaning Machine Operator: Tere Abraham. PositionSUPINENormalUniversity Hospitals Beachwood Medical Center Comment on above:Performed By: #### ABG #### [facility] [address] [place] [address] Dr. Garcia, [place] [id number] Joint Cleaning Machine Operator: Ronna Abraham Wright Memorial HospitalNoemi Brachial ArteryNormalUniversity Hospitals Beachwood Medical CenterComment on above:Performed By: #### ABG #### [facility] [address] [place] [address] Dr. Garcia, [place] [phone] Joint Cleaning Machine Operator: Maykel Abraham HgbNOT REPORTEDNormal0-5[facility] HospitalComment on above:Performed By: #### ABG #### [facility] [address] [place] [address] Dr. [place], [place] [phone] Joint Cleaning Machine Operator: Stevan Kerns MDFIO2NOT REPORTEDNormalUniversity Hospitals Beachwood Medical CenterComment on above:Performed By: #### ABG #### [facility] [address] [place] [address] [place] [address] Joint Cleaning Machine Operator: DINAH AbrahamethemoglobinNOT REPORTEDNormal0.0-1.9[facility] HospitalComment on above:Performed By: #### ABG #### [facility] [address] [place] [address] [place] [address] Joint Cleaning Machine Operator: DINAH AbrahamodeNOT REPORTEDNormalMercy East Dublin HospitalComment on above:Performed By: #### ABG #### [facility] [address] [place] [address] [place] [address] Joint Cleaning Machine Operator: Stevan Kerns MDNegative Base ExcessNOT REPORTEDNormal0.0-2.0[facility] HospitalComment on above:Performed By: #### ABG #### [address] [place] [address] Joint Cleaning Machine Operator: Stevan Kerns MDNotification TimeNOT REPORTEDNormalMercy East Dublin HospitalComment on above:Performed By: #### ABG #### [address] [place] [address] Joint Cleaning Machine Operator: Stevan Kerns MDNotification:NOT REPORTEDNormalMercy East Dublin HospitalComment on above:Performed By: #### ABG #### [facility] [address] [place] [address] [place] [address] Joint Cleaning Machine Operator: Stevan Kerns MDOxyhemoglobinNOT BELXTNZNKtbzaj48.0-98.0[facility] HospitalComment on above:Performed By: #### ABG #### [facility] [address] [place] [address] [place] [address] Joint Cleaning Machine Operator: Aidee AbrahamCO2 Adj'd for TempNOT REPORTEDNormalMercy East Dublin HospitalComment on above:Performed By: #### ABG #### [facility] [address] [place] [address] [place] [address] Joint Cleaning Machine Operator: AIDEE AbrahamEEP/CPAPNOT REPORTEDNormCleveland Clinic Medina Hospital Comment on above:Performed By: #### ABG #### [facility] [address] [place] [address] [place] [address] Joint Cleaning Machine Operator: Aidee Abraham Adjst'd for Temp.NOT REPORTEDNormal7.350-7.450 [facility] HospitalComment on above:Performed By: #### ABG #### [facility] [address] [place] [address] [place] [address] Joint Cleaning Machine Operator: Cl Abraham Adjst'd for TempNOT FJPESPVWJsulhr89.0-100.0 [facility] Medical CenterComment on above:Performed By: #### ABG #### [facility] [address] [place] [address] [place] [address] Joint Cleaning Machine Operator: CRISTOFER AbrahamVNOT REPORTEDNormalMercy Veterans Administration Medical CenterComment on above:Performed By: #### ABG #### [facility] [address] [place] [address] [place] [address] Joint Cleaning Machine Operator: Diana Abraham RateNOT REPORTEDNormalUniversity Hospitals Beachwood Medical CenterComment on above:Performed By: #### ABG #### [facility] [address] [place] [address] [place] [address] Joint Cleaning Machine Operator: Candi Abraham RateNOT REPORTEDNormalUniversity Hospitals Beachwood Medical Center Comment on above:Performed By: #### ABG #### [facility] [address] [place] [address] [place] [address] Joint Cleaning Machine Operator: Ebony Abraham for RespiratoryNOT REPORTEDNormalCleveland Cliniccy East Dublin HospitalComment on above:Performed By: #### ABG #### [facility] [address] [place] [address] [address] [place], [place] [phone] Joint Cleaning Machine Operator: Stevan Sturtz, MDTotal HbNOT KBEJSSRKJjzivg59.0-16.0[facility] Beachwood Medical CenterComment on above:Performed By: #### ABG #### [facility] [address] [place] [address] Joint Cleaning Machine Operator: Miguel Ángel Abraham RateNOT REPORTEDNormalUniversity Hospitals Beachwood Medical Center Comment on above:Performed By: #### ABG #### [facility] [address] [place] [address] Joint Cleaning Machine Operator: Stevan Kerns MDVTNOT REPORTEDNormalUniversity Hospitals Beachwood Medical CenterComment on above:Performed By: #### ABG #### [facility] [address] [place] [address] Joint Cleaning Machine Operator: Stevan Kerns MDBlood Gas, Arterialon 30-27-3923Asusp TestPASS [facility] CampusCarboxyhemoglobinNOT REPORTED0 - 5 %[facility] CampusComment on above: DDI1VDQ REPORTEDTrinity Health System East CampusHCO3 (Bld) [Moles/Vol]29.7 mmol/LHigh22 - 26 mmol/L [facility] CampusInterpretation and review of laboratory resultsAbnormalTr[facility] Health [facility] Campus MethemoglobinNOT REPORTED0.0 - 1.9 %[facility] CampusModeNOT REPORTEDTr[facility] Negative Base Excess, ArtNOT REPORTED0.0 - 2.0 mmol/LMercy HealthNOTIFICATIONNOT REPORTEDHolzer Health System HealthNOTIFICATION TIMENOT REPORTEDHolzer Health System HealthO2 Device/Flow/%O2 MaskMerUniversal Health ServicesOxygen saturation in Blood96.1 %95 - 98 %[facility] OxyhemoglobinNOT FRGUGMET02.0 - 98.0 %[facility] East CampuspCO2, Art, Temp AdjNOT REPORTEDMer HealthpCO2, Iknaxpdi22.2HighMer HealthPeep/CpapNOT REPORTEDMer HealthpH, Art, Temp AdjNOT REPORTEDMer HealthpH, Arterial7.348LowMer Health pO2, Art, Temp AdjNOT REPORTEDMer HealthpO2, Tyzggqgf02.4[facility] HealthPositive Base Excess, Art2.6 mmol/LHigh0.0 - 2.0 mmol/LMercy HealthPSVNOT REPORTEDHolzer Health System HealthPt Temp37.0[facility] CampusPt. PositionSUPINEMer HealthRespiratory RateNOT REPORTEDTrinity Health System East CampusSample SiteLeft Brachial ArteryMer HealthSet RateNOT REPORTEDHolzer Health System HealthText for RespiratoryNOT REPORTEDTrinity Health System East CampusTotal HbNOT TJHKZAFC91.0 - 16.0 g/dlTrinity Health System East CampusTotal RateNOT REPORTEDHolzer Health System HealthVTNOT REPORTEDBurnett Medical CenterCBC Auto Differentialon 86-27-8228Xkmehkss Eos # 0.20MerUniversal Health ServicesAbsolute Immature Granulocyte0.06MerUniversal Health ServicesAbsolute Lymph # 3.98HighMerUniversal Health ServicesAbsolute [place] #1.22HighTrinity Health System East CampusBasophils (Bld) [#/Vol] 0.05 10*3/uLMerUniversal Health ServicesBasophils/100 WBC (Bld)0 %0 - 2 %[facility] Differential TypeNOT REPORTEDTrinity Health System East CampusEosinophils/100 WBC (Bld)1 %1 - 4 % [facility] CampusHematocrit (Bld) [Volume fraction]45.3 %40.7 - 50.3 %[facility] Hemoglobin.gastrointestinal spec 1 Ql (Stl)14.7 g/dL13.0 - 17.0 g/dLTr[facility] Health System [facility] Campus Immature granulocytes/100 WBC (Bld)0 %0[facility] CampusInterpretation and review of laboratory resultsAbnormalTrinity Health System East CampusLymphocytes/100 WBC (Bld)25 %24 - 43 % [facility] MemorialH (RBC) [Entitic mass]29.5 pg25.2 - 33.5 pgKettering Health Greene MemorialHC (RBC) [Mass/Vol]32.5 g/dL28.4 - 34.8 g/dLKettering Health Greene MemorialV (RBC) [Entitic vol]91.0 fL 82.6 - 102.9 fLTrinity Health System East CampusMonocytes/100 WBC (Bld)8 %3 - 12 %[facility] CampusNRBC Automated0.00.0 per 100 WBCTrinity Health System East CampusPlatelet distribution width (Bld) [Ratio] 12.6 %11.8 - 14.4 %[facility] CampusPlatelet EstimateNOT REPORTEDTrinity Health System East CampusPlatelet mean volume (Bld) [Entitic vol]9.3 fL8.1 - 13.5 fLHolzer Health System HealthPlatelets (Bld) [#/Vol]195 10*3/[facility] (Bld) [#/Vol]4.98 10*6/uL4.21 - 5.77 m/[facility] (Bld) [#/Vol]NOT REPORTEDMcCullough-Hyde Memorial Hospitalented neutrophils/100 WBC (Bld)66 %High36 - 65 %[facility] CampusSe Bwsgpoks84.73HighTrinity Health System East CampusWBC (Bld) [#/Vol]16.2 10*3/uLMercy Health Tiffin HospitalWBC (Bld) [#/Vol]NOT REPORTEDGundersen Lutheran Medical Center with Diffon [id number]. Basophil0.05 k/uLNormal0.00-0.20[facility]wood Medical CenterComment on above:Performed By: #### CMPX, TROPI, PT, CDP, MG #### [address] [place] [address] Joint Cleaning Machine Operator: Bud Abraham.Imm.Granulocyte0.06 k/uLNormal0.00-0.30[facility]wood Medical CenterComment on above:Performed By: #### CMPX, TROPI, PT, CDP, MG #### [address] [place] [address] Joint Cleaning Machine Operator: Bud Abraham.Neutrophil (Seg)10.73 k/uLHigh1.50-8.10[facility] Medical CenterComment on above:Performed By: #### CMPX, TROPI, PT, CDP, MG #### [address] [place] [address] Joint Cleaning Machine Operator: Stevan Kerns MDBasophils/100 WBC (Bld)0 %Normal0-2MRegional Medical Center HospitalComment on above:Performed By: #### CMPX, TROPI, PT, CDP, MG #### [address] [place] [address] Joint Cleaning Machine Operator: Stevan Kerns MDEosinophils (Bld) [#/Vol]0.20 10*3/uLNormal 0.00-0.44[facility] HospitalComment on above:Performed By: #### CMPX, TROPI, PT, CDP, MG #### [address] [place] [address] Joint Cleaning Machine Operator: Stevan Kerns MDEosinophils/100 WBC (Bld)1 %Normal1-4[facility] Medical CenterComment on above:Performed By: #### CMPX, TROPI, PT, CDP, MG #### [address] [place] [address] Joint Cleaning Machine Operator: Stevan Kerns MDErythrocyte distribution width (RBC) [Ratio]12.6 % Uplyes77.8-14.4[facility] Medical CenterComment on above:Performed By: #### CMPX, TROPI, PT, CDP, MG #### [address] [place], [place] [address] Joint Cleaning Machine Operator: Stevan Kerns MDHematocrit (Bld) [Volume fraction]45.3 %Normal 40.7-50.3MOhioHealth Dublin Methodist HospitalComment on above:Performed By: #### CMPX, TROPI, PT, CDP, MG #### [address] [place] [phone] Joint Cleaning Machine Operator: Stevan Kerns MDHemoglobin (Bld) [Mass/Vol]14.7 g/dLNormal 13.0-17.0[facility] Medical CenterComment on above:Performed By: #### CMPX, TROPI, PT, CDP, MG #### [address] [place] [phone] Joint Cleaning Machine Operator: Stevan Kerns MDImmature granulocytes/100 WBC (Bld)0 %Maevhu4KcacmUniversity Hospitals Beachwood Medical CenterComment on above:Performed By: #### CMPX, TROPI, PT, CDP, MG #### [address] [place] [address] Joint Cleaning Machine Operator: Tori Abrahammphocytes (Bld) [#/Vol]3.98 10*3/uLHigh1.10-3.70 [facility] Medical CenterComment on above:Performed By: #### CMPX, TROPI, PT, CDP, MG #### [address] [place] [address] Joint Cleaning Machine Operator: Tori Abrahammphocytes/100 WBC (Bld)25 %Vdrsie34-99WacqhUniversity Hospitals Beachwood Medical CenterComment on above:Performed By: #### CMPX, TROPI, PT, CDP, MG #### [address] [place], [facility] Joint Cleaning Machine Operator: DINAH AbrahamCH (RBC) [Entitic mass]29.5 ggBwgtkv71.2-33.5 [facility] Medical CenterComment on above:Performed By: #### CMPX, TROPI, PT, CDP, MG #### [address] [place] [address] Joint Cleaning Machine Operator: YARY AbrahamC (RBC) [Mass/Vol]32.5 g/gXSswrre48.4-34.8[facility] Medical CenterComment on above:Performed By: #### CMPX, TROPI, PT, CDP, MG #### [address] [place], [place] 1210183 Joint Cleaning Machine Operator: DINAH AbrahamCV (RBC) [Entitic vol]91.0 qWQvxwcg78.6-102.9 [facility] Medical CenterComment on above:Performed By: #### CMPX, TROPI, PT, CDP, MG #### [address] [place], [place] [phone] Joint Cleaning Machine Operator: DINAH Abrahamonocytes (Bld) [#/Vol]1.22 10*3/uLHigh0.10-1.20 [facility] Medical CenterComment on above:Performed By: #### CMPX, TROPI, PT, CDP, MG #### [address] [place], [place] [phone] Joint Cleaning Machine Operator: DINAH Abrahamonocytes/100 WBC (Bld)8 %Normal3-12[facility] Medical CenterComment on above:Performed By: #### CMPX, TROPI, PT, CDP, MG #### [address] [place] [address] Joint Cleaning Machine Operator: Cameron Abrahamophil (Seg)66 %Ddpj96-03BlflhUniversity Hospitals Beachwood Medical Center Comment on above:Performed By: #### CMPX, TROPI, PT, CDP, MG #### [address] [place], [place] 4337283 Joint Cleaning Machine Operator: Stevan Kerns MDNRBC Automated0.0 per 100 WBCNormal0.0[facility] Medical CenterComment on above:Performed By: #### CMPX, TROPI, PT, CDP, MG #### [address] [place], [place] [phone] Joint Cleaning Machine Operator: Mikey Abraham mean volume (Bld) [Entitic vol]9.3 fL Normal8.1-13.5[facility] Medical CenterComment on above:Performed By: #### CMPX, TROPI, PT, CDP, MG #### [address] [place] [address] Joint Cleaning Machine Operator: Kika Abraham (Bld) [#/Vol]195 10*3/mIWculbu193-235 [facility] Medical CenterComment on above:Performed By: #### CMPX, TROPI, PT, CDP, MG #### [address] [place], [place] [phone] Joint Cleaning Machine Operator: JAVED AbrahamBC (Bld) [#/Vol]4.98 10*6/uLNormal4.21-5.77[facility] Dublin HospitalComment on above:Performed By: #### CMPX, TROPI, PT, CDP, MG #### [address] [place] [address] Joint Cleaning Machine Operator: IVANA Abraham (Bld) [#/Vol]16.2 10*3/uLHigh3.5-11.3Mer[facility] Dublin HospitalComment on above:Performed By: #### CMPX, TROPI, PT, CDP, MG #### [address] [place] [address] Joint Cleaning Machine Operator: José Luis Abraham PerformedNOT REPORTEDNormalMccullough-Hyde Memorial Hospital HospitalComment on above:Performed By: #### CMPX, TROPI, PT, CDP, MG #### [address] [place] [address] Joint Cleaning Machine Operator: Mikey Abraham CommentNOT REPORTEDNormalMccullough-Hyde Memorial Hospital HospitalComment on above:Performed By: #### CMPX, TROPI, PT, CDP, MG #### [address] [place] [address] Joint Cleaning Machine Operator: LEVI Abraham morphology finding Nom (Bld)NOT REPORTEDNormal [facility] HospitalComment on above:Performed By: #### CMPX, TROPI, PT, CDP, MG #### [facility] [address] [place] [address] Dr. [place], [place] [phone] Joint Cleaning Machine Operator: IVANA Abraham MorphologyNOT REPORTEDNormalMccullough-Hyde Memorial Hospital HospitalComment on above:Performed By: #### CMPX, TROPI, PT, CDP, MG #### [address] [place], [place] 8366383 Joint Cleaning Machine Operator: Stevan Sturtz, MDComp Metabolic Pr/rfx MGon 18-16-2982PDR [Catalytic activity/Vol]28 U/LNormal<40[facility] Medical CenterComment on above: Performed By: #### CMPX, TROPI, PT, CDP, MG #### [address] [place] [address] Joint Cleaning Machine Operator: Stevan Kerns MDGlucose [Mass/Vol]19 mg/dLCritically ewr47-68HvlsmOhioHealth Dublin Methodist HospitalComment on above:Performed By: #### CMPX, TROPI, PT, CDP, MG #### [address] [place] [address] Joint Cleaning Machine Operator: AIDEE Abrahamotassium [Moles/Vol]3.4 mmol/LLow3.7-5.3[facility] Medical CenterComment on above:Performed By: #### CMPX, TROPI, PT, CDP, MG #### [address] [place] [address] Joint Cleaning Machine Operator: Stevan Kerns MD(cont.)[facility] for RehabilitationComment on above:Result Comment: Average GFR for 60-69 years old: 85 mL/min/1.73sq m Chronic Kidney Disease: <60 mL/min/1.73sq m Kidney failure: <15 mL/min/1.73sq m eGFR calculated using average adult body mass. Additional eGFR calculator available at: http://www.[employer].com/multiple_crcl_2012.htmPerformed By: #### CMPX, TROPI, PT, CDP, MG #### [address] [place] [address] Joint Cleaning Machine Operator: Stevan Kerns MDAlbumin [Mass/Vol]4.5 g/dLNormal3.5-5.2[facility] Medical CenterComment on above:Performed By: #### CMPX, TROPI, PT, CDP, MG #### [address] [place] [address] Joint Cleaning Machine Operator: Stevan Kerns MDAlbumin/Glob Ratio1.7Gbvaul0.0-2.5[facility] Medical CenterComment on above:Performed By: #### CMPX, TROPI, PT, CDP, MG #### [address] [place] [address] Joint Cleaning Machine Operator: Ryann Abrahamline Phos98 U/PIhwvoo40-227ErtkfUniversity Hospitals Beachwood Medical CenterComment on above:Performed By: #### CMPX, TROPI, PT, CDP, MG #### [address] [place] [address] Joint Cleaning Machine Operator: Stevan Kerns MDALT [Catalytic activity/Vol]31 U/LNormal5-41[facility] Medical CenterComment on above:Performed By: #### CMPX, TROPI, PT, CDP, MG #### [address] [place], [place] 1747283 Joint Cleaning Machine Operator: Cindy Abraham gap [Moles/Vol]13 mmol/LNormal9-17[facility] Medical CenterComment on above:Performed By: #### CMPX, TROPI, PT, CDP, MG #### [address] [place], [place] 2630983 Joint Cleaning Machine Operator: Stevan Kerns MDBilirubin [Mass/Vol]0.36 mg/dLNormal0.3-1.2MercNorwalk HospitalComment on above:Performed By: #### CMPX, TROPI, PT, CDP, MG #### [address] [place], [place] 8195383 Joint Cleaning Machine Operator: Stevan Kerns MDBUN/CRE Xpnna32Iigfgo9-74Rvqfh [facility] Comment on above:Performed By: #### CMPX, TROPI, PT, CDP, MG #### [address] [place], [place] 3728383 Joint Cleaning Machine Operator: RACHELL Abrahamalcium [Mass/Vol]9.4 mg/dLNormal8.6-10.4MerKeenan Private Hospital HospitalComment on above:Performed By: #### CMPX, TROPI, PT, CDP, MG #### [address] [place], [place] 4457483 Joint Cleaning Machine Operator: RACHELL Abrahamhloride [Moles/Vol]105 mmol/NPxpcyv02-353Xvbox [facility] HospitalComment on above:Performed By: #### CMPX, TROPI, PT, CDP, MG #### [address] [place], [place] [address]83 Joint Cleaning Machine Operator: Stevan Kerns MDCO2 [Moles/Vol]27 mmol/UOfbfgu65-29Wcpmt [facility] HospitalComment on above:Performed By: #### CMPX, TROPI, PT, CDP, MG #### [address] [place] [address] Joint Cleaning Machine Operator: RACHELL Abrahamreatinine [Mass/Vol]1.78 mg/dLHigh0.70-1.20MerKeenan Private Hospital HospitalComment on above:Performed By: #### CMPX, TROPI, PT, CDP, MG #### [address] [place], [place] 5740483 Joint Cleaning Machine Operator: ANTOINE Abraham, Amer47 mL/minLow>60[facility] HospitalComment on above:Performed By: #### CMPX, TROPI, PT, CDP, MG #### [address] [place] [address] Joint Cleaning Machine Operator: ANTOINE Abraham,non Amer38 mL/minLow>60[facility] HospitalComment on above:Performed By: #### CMPX, TROPI, PT, CDP, MG #### [address] [place] [address] Joint Cleaning Machine Operator: AIDEE Abrahamrotein [Mass/Vol]8.3 g/dLNormal6.4-8.3MOhioHealth Dublin Methodist HospitalComment on above:Performed By: #### CMPX, TROPI, PT, CDP, MG #### [address] [place] [address] Joint Cleaning Machine Operator: DIANA Abrahamodium [Moles/Vol]145 mmol/VAgum536-891UlpmvUniversity Hospitals Beachwood Medical CenterComment on above:Performed By: #### CMPX, TROPI, PT, CDP, MG #### [address] [place] [address] Joint Cleaning Machine Operator: DIANA Abrahamtaging:[facility] for RehabilitationComment on above:Result Comment: Stage 1: Some kidney damage normal GFR Stage 2: Mild kidney damage GFR 60-89 Stage 3: Moderate kidney damage GFR 30-59 Stage 4: Severe kidney damage GFR 15-29 Stage 5: Severe kidney damage GFR <15 ESRD - chronic treatment by dialysis or transplantPerformed By: #### CMPX, TROPI, PT, CDP, MG #### [address] [place] [address] Joint Cleaning Machine Operator: Stevan Kerns MDUrea nitrogen [Mass/Vol]34 mg/dLHigh8-23[facility] Medical CenterComment on above:Performed By: #### CMPX, TROPI, PT, CDP, MG #### [address] [place] [address] Joint Cleaning Machine Operator: RACHELL Abrahamomprehensive Metabolic Panel w/ Reflex to MGon 89-09-8000Mduoajy [Mass/Vol]4.5 g/dL3.5 - 5.2 g/dLHolzer Health System HealthAlbumin/Globulin [Mass ratio]1.2 {ratio}[facility] CampusALP (Bld) [Catalytic activity/Vol]98 U/L40 - 129 U/LMerc HealthALT [Catalytic activity/Vol]31 U/L5 - 41 U/LMercy HealthAnion gap [Moles/Vol]13 mmol/L9 - 17 mmol/LMercy HealthAST [Catalytic activity/Vol]28 U/L<40MerUniversal Health ServicesBilirubin [Mass/Vol]0.36 mg/dL0.3 - 1.2 mg/dLHolzer Health System Health Calcium [Mass/Vol]9.4 mg/dL8.6 - 10.4 mg/dLMer HealthChloride [Moles/Vol]105 mmol/L98 - 107 mmol/LMercy HealthCO2 [Moles/Vol]27 mmol/L20 - 31 mmol/LMercy HealthCreatinine [Mass/Vol]1.78 mg/dLHigh0.70 - 1.20 mg/dLTrinity Health System East CampusFree PSA/Total PSA [Mass fraction]8.3 g/dL6.4 - 8.3 g/dLHolzer Health System HealthGFR Rpiywqto31 mL/minLow>60Mer HealthGFR Non- Ixffvgth00 mL/minLow>60Mer HealthGlucose [Mass/Vol]19 mg/dLCritically low70 - 99 mg/dLTrinity Health System East Campus Interpretation and review of laboratory resultsAbnormalHolzer Health System HealthPotassium [Moles/Vol]3.4 mmol/LLow3.7 - 5.3 mmol/LMercy HealthSodium [Moles/Vol]145 mmol/L Dict850 - 144 mmol/LMercy HealthUrea nitrogen (BldV) [Mass/Vol]34 mg/dLHigh8 - 23 mg/dLHolzer Health System HealthUrea nitrogen/Creatinine (Bld) [Mass ratio]19[place] HealthGlucose, Whole Bloodon 34-47-2177Kgpnmly [Mass/Vol]125 mg/tZTufl40 - 100 mg/dLHolzer Health System HealthInterpretation and review of laboratory resultsAbnormal [facility] HealthGlucose [Mass/Vol]134 mg/mPMtgg90 - 100 mg/dLHolzer Health System HealthInterpretation and review of laboratory resultsAbnormalThe [facility] HealthGlucose [Mass/Vol]97 mg/dL74 - 100 mg/dLThe [facility] HealthGlucose [Mass/Vol]60 mg/dLLow74 - 100 mg/dLHolzer Health System HealthInterpretation and review of laboratory resultsAbnormalBurnett Medical CenterGlucose [Mass/Vol]93 mg/dL74 - 100 mg/dLBurnett Medical CenterLaboratory - Chemistry and Chemistry - challengeon 46-27-6832TCB/1.73 sq M.predicted MDRD (S/P/Bld) [Vol rate/Area] [facility] CampusComment on above:Average GFR for 60-69 years old: 85 mL/min/1.73sq m Chronic Kidney Disease: <60 mL/min/1.73sq m Kidney failure: <15 mL/min/1.73sq m eGFR calculated using average adult body mass. Additional eGFR calculator available at: http://www.[employer]/multiple_crcl_2012.htm Stage 1: Some kidney damage normal GFR Stage 2: Mild kidney damage GFR 60-89 Stage 3: Moderate kidney damage GFR 30-59 Stage 4: Severe kidney damage GFR 15-29 Stage 5: Severe kidney damage GFR <15 ESRD - chronic treatment by dialysis or transplant Lactic Acidon 84-26-7149Zdfsrqj [Moles/Vol]1.0 mmol/LNormal0.5-2.2MOhioHealth Dublin Methodist HospitalComment on above:Performed By: #### LAC #### [facility] [address] [place] [address] Joint Cleaning Machine Operator: Stevan Kerns MDLactate [Moles/Vol]1 mmol/L0.5 - 2.2 mmol/LMkettering health prebley [facility] Memorial HospitalMagnesiumon 75-13-0210Xndhoswfq [Mass/Vol]1.8 mg/dLNormal 1.6-2.6MOhioHealth Dublin Methodist HospitalComment on above:Performed By: #### CMPX, TROPI, PT, CDP, MG #### [facility] [address] [place] [address] Joint Cleaning Machine Operator: Stevan Kerns MDMagnesium [Mass/Vol]1.8 mg/dL1.6 - 2.6 mg/dLBurnett Medical CenterMicroscopic Urinalysison 06-04-2021-[facility] CampusAmorphous, UA NOT REPORTEDNoneMerc HealthBacteria, UANOT REPORTEDNoneMercy HealthCasts UANOT REPORTED/LPFMercy HealthCrystals, UANOT REPORTEDNone /HPFMercy HealthEpithelial Cells UA0 TO 2Mercy HealthMucus, UANOT REPORTEDNoneMercy HealthOther Observations UANOT REPORTEDNOT REQ.Merc HealthRBC, UA0 TO 2Mercy HealthRenal Epithelial, UANOT REPORTED0 /HPFMercy HealthTrichomonas, UANOT REPORTEDNoneMercy HealthWBC, UA0 TO 2Mercy HealthYeast, UANOT REPORTEDNoneMercy Critical access hospital HealthPOCT glucoseOrdered By: Lashell Gonzalez on [id number] [Mass/Vol]60 mg/dLHolzer Health System HealthInterpretation and review of laboratory resultsNormMarshfield Medical Center [facility] [place] [id number] Coag (PPP) [Relative time]0.9 {INR}Normal [facility] Medical CenterComment on above:Result Comment: Non-therapeutic Range: INR = 0.9-1.2 Therapeutic Range: Moderate Anticoagulant Intensity: INR = 2.0-3.0 High Anticoagulant Intensity: INR = 2.5-3.5Performed By: #### CMPX, TROPI, PT, CDP, MG #### [facility] [address] [place] [address] [place] [address] Joint Cleaning Machine Operator: TERE Abraham Coag (PPP) [Time]12.4 aKjmgym65.5-14.2MOhioHealth Dublin Methodist HospitalComment on above:Performed By: #### CMPX, TROPI, PT, CDP, MG #### [facility] [address] [place] [address] [place] [address] Joint Cleaning Machine Operator: Chloe Abrahamime-INRon [id number] Coag (Bld) [Relative time]0.9 {INR}[facility] East CampusComhealthsource [place] on above: Non-therapeutic Range: INR = 0.9-1.2 Therapeutic Range: Moderate Anticoagulant Intensity: INR = 2.0-3.0 High Anticoagulant Intensity: INR = 2.5-3.5 PT Coag (PPP) [Time]12.4 sMkettering health prebley [facility] Memorial HospitalTroponinon 04-85-8039Ckawceri, High Sens13 ng/LNormal0-22[facility] Medical CenterComment on above:Result Comment: High Sensitivity Troponin values cannot be compared with other Troponin methodologies. Patients with high levels of Biotin oral intake (i.e >5mg/day) may have falsely decreased Troponin levels. Samples collected within 8 hours of biotin intake may require additional information for diagnosis.Performed By: #### CMPX, TROPI, PT, CDP, MG #### [facility] [address] [place] [address] Dr. [place], [place] [phone] Joint Cleaning Machine Operator: Lisandra Abraham.NOT REPORTEDNormalUniversity Hospitals Beachwood Medical CenterComment on above:Performed By: #### CMPX, TROPI, PT, CDP, MG #### [address] [place], [place] [id number] Joint Cleaning Machine Operator: Lisandra Abraham REPORTEDNormal<0.03[facility] Comment on above:Performed By: #### CMPX, TROPI, PT, CDP, MG #### [facility] [address] [place] [address] Dr[address] [place], [place] [phone] Joint Cleaning Machine Operator: Lisandra Abraham REPORTEDLakeHealth Beachwood Medical Centernin, High Aygnoocrmln50 ng/L0 - 22 ng/LMercy Mercy Health Perrysburg HospitalComment on above: High Sensitivity Troponin values cannot be compared with other Troponin methodologies. Patients with high levels of Biotin oral intake (i.e >5mg/day) may have falsely decreased Troponin levels. Samples collected within 8 hours of biotin intake may require additional information for diagnosis. [facility] CampusUrinalysis, Routineon [id number], SemiQt,UrNegativeNormal NEGUniversity Hospitals Beachwood Medical CenterComment on above:Performed By: #### ANGELINE RAMIREZ #### [facility] [address] [place] [address] Dr[address] [place], [place] [phone] Joint Cleaning Machine Operator: Fredrick Abraham, Urine1+AbnormalNEGUniversity Hospitals Beachwood Medical Center Comment on above:Performed By: #### ANGELINE RAMIREZ #### [facility] [address] [place], [place] [phone] Joint Cleaning Machine Operator: RACHELL Abrahamlarity (U)ClearNormalCLEARUniversity Hospitals Beachwood Medical Center Comment on above:Performed By: #### CHIKAO, UA #### [facility] [address] [place], [place] [phone] Joint Cleaning Machine Operator: RACHELL Abrahamolor (U)YellowNormalYELMerNorwalk Hospital Comment on above:Performed By: #### JAMES, UA #### [facility] [address] [place], [place] [phone] Joint Cleaning Machine Operator: Stevan Kerns MDGlucose Ql (U)NegativeNormalNEGUniversity Hospitals Beachwood Medical CenterComment on above:Performed By: #### JAMES, UA #### [facility] [address] [place] [address] Dr[address] [place], [place] [phone] Joint Cleaning Machine Operator: Stevan Kerns MDKetones Ql (U)NegativeNormalNEGUniversity Hospitals Beachwood Medical CenterComment on above:Performed By: #### JAMES UA #### [facility] [address] [place] [address] Dr[address] [place], [place] [phone] Joint Cleaning Machine Operator: Stevan Kerns MDLeukocyte esterase Test strip Ql (U)NegativeNormal NEGUniversity Hospitals Beachwood Medical CenterComment on above:Performed By: #### JAMES, UA #### [facility] [address] [place], [place] 7911283 Joint Cleaning Machine Operator: Stevan Kerns MDNitrite,UrNegativeTuscarawas Hospital Comment on above:Performed By: #### JAMES, UA #### [facility] [address] [place] [address] [address] [place], [place] 1632783 Joint Cleaning Machine Operator: AIDEE Abraham,Ur5.8Dbnrnx2.0-9.0MerNorwalk HospitalComment on above:Performed By: #### UMICAO, UA #### [facility] [address] [place], [place] [phone] Joint Cleaning Machine Operator: AIDEE Abrahamrotein Ql (U)2+AbnormalNEGUniversity Hospitals Beachwood Medical Center Comment on above:Performed By: #### UMICAO, UA #### [facility] [address] [place], [place] 6154383 Joint Cleaning Machine Operator: Libertad Abraham. [place],Ur>1.112Pmsk1.010-1.020Mercy East Dublin HospitalComment on above:Performed By: #### UMSAMANTHAO, UA #### [facility] [address] [place] [address] Dr[address] [place], [place] [phone] Joint Cleaning Machine Operator: Stevan Kerns MDUrobilinogen,UrNormalNormalNORMMercy East Dublin HospitalComment on above:Performed By: #### UMSAMANTHAO, UA #### [facility] [address] [place] [address] Dr[address] [place], [place] [phone] Joint Cleaning Machine Operator: RACHELL AbrahamommentNOT REPORTEDNormCleveland Clinic [facility] Comment on above:Performed By: #### UMICAO, UA #### [facility] [address] [place] [address] Dr[address] [place], [place] [phone] Joint Cleaning Machine Operator: Stevan Kerns MDUrinalysis, reflex to microscopicon 06-04-2021 Bilirubin UrineNegativeNEGATIVEMercy HealthColor, UAYellowYellowMercy Health Glucose, UrNegativeNEGATIVEMercy HealthInterpretation and review of laboratory resultsAbnormalMercy HealthKetones Ql (U)NegativeNEGATIVEMercy HealthLeukocyte esterase Test strip Ql (U)NegativeNEGATIVEMercy HealthNitrite, UrineNegative NEGATIVEMercy HealthpH, UA5.5Mercy HealthProtein, UA2+AbnormalNEGATIVEMercy HealthSpecific [place], UA>1.030HighMercy HealthTurbidity UAClearClearMercy HealthUrinalysis CommentsNOT REPORTEDMercy HealthUrine Hgb1+AbnormalNEGATIVE Mercy HealthUrobilinogen, UrineNormalNormalCleveland Cliniccy [facility] Urinalysis,Microon 06-04-2021-----NormalMccullough-Hyde Memorial Hospital HospitalComment on above: Performed By: #### UMICAO, UA #### [facility] [address] [place] [address] Joint Cleaning Machine Operator: Stevan Kerns MDEpithelial cells LM Ql (Urine sed)0 TO 6Qbumye6-9 [facility] Beachwood Medical CenterComment on above:Performed By: #### UMICAO, UA #### [facility] [address] [place] [address] Joint Cleaning Machine Operator: Ruth Abraham RBC's0 TO 4Xhkzry4-4FxiceOhioHealth Dublin Methodist Hospital Comment on above:Performed By: #### CHIKAO, UA #### [facility] [address] [place], [place] 9707683 Joint Cleaning Machine Operator: Ruth Abraham WBC's0 TO 7Srzumf9-1HqlhjUniversity Hospitals Beachwood Medical Center Comment on above:Performed By: #### JAMES, UA #### [facility] [address] [place], [facility] Joint Cleaning Machine Operator: Karolyn Abraham sediment LM Ql (Urine sed)NOT REPORTED NormalMercy Health Defiance HospitalComment on above:Performed By: #### JAMES, UA #### [facility] [address] [place] [address] Joint Cleaning Machine Operator: Stevan Kerns MDBacteriaNOT REPORTEDNormSelect Medical Specialty Hospital - Cleveland-FairhillComment on above:Performed By: #### UMICAO, UA #### [facility] [address] [place], [place] [phone] Joint Cleaning Machine Operator: Jazmine Abraham REPORTEDCleveland Clinic Children's Hospital for Rehabilitation Comment on above:Performed By: #### IOANAICAO, UA #### [facility] [address] [place] [address] [place] [address] Joint Cleaning Machine Operator: Miguelina Abraham LM Nom (Urine sed)NOT REPORTEDNormalNONE [facility] HospitalComment on above:Performed By: #### UMICAO, UA #### [facility] [address] [place] [address] [place] [address] Joint Cleaning Machine Operator: Stevan Kerns MDEpithelial, RenalNOT AGENNXPMTuivjk7Wigyq East [place] HospitalComment on above:Performed By: #### UMICAO, UA #### [facility] [address] [place] [address] [place] [address] Joint Cleaning Machine Operator: DINAH Abrahamucus StrandsNOT REPORTEDNormalNONEMeHighland Community Hospital HospitalComment on above:Performed By: #### CHIKAO, UA #### [facility] [address] [place] [address] [place] [address] Joint Cleaning Machine Operator: Stevan Kerns MDOther ObservationsNOT REPORTEDNormalNREQMccullough-Hyde Memorial Hospital HospitalComment on above:Performed By: #### UMICAO, UA #### [facility] [address] [place] [address] [place] [address] Joint Cleaning Machine Operator: Ethan AbrahamhomonasNOT REPORTEDNormalNONEMeBackus HospitalComment on above:Performed By: #### UMICAO, UA #### [facility] [address] [place] [address] [place] [address] Joint Cleaning Machine Operator: Stevan Kerns MDYeastNOT REPORTEDNormalNONEMeHighland Community Hospital Hospital Comment on above:Performed By: #### UMICAO, UA #### [facility] [address] [place] [address] [place] [address] Joint Cleaning Machine Operator: KARINA Abraham BLOOD GAS W/COOXon [id number] EXCESS 15 mmol/TAbhy-1-7Hfx [facility] Medical CenterComment on above:Order Comment: No: Do not add to previous drawPerformed By: #### 99996, 90803, 70080, 14818 #### [facility] [address] [place] [address], USACOHB2.5 %High0.0-1.5The [facility] Comment on above:Order Comment: No: Do not add to previous drawPerformed By: #### 66914, 68630, 72808, 04715 #### [facility] [address] [place] [address], USADELIVERY SYSTEMSRANormalThe [facility] Hospitals Geneva Medical CenterComment on above:Order Comment: No: Do not add to previous drawPerformed By: #### 73143, 27820, 67664, 39398 #### [facility] [address] [place] [address], USAHCO3 (Bld) [Moles/Vol]42 mmol/LCritically himq22-74Seo [facility] Medical CenterComment on above:Order Comment: No: Do not add to previous drawPerformed By: #### 44793, 10411, 85186, 62511 #### [facility] [address] [place] [address], USAMETHB1.2 %Normal0.0-1.5The [facility] Medical CenterComment on above:Order Comment: No: Do not add to previous drawPerformed By: #### 83212, 18655, 34409, 15284 #### [facility] [address] [place] [address], USAMODALITYRANormalThe [facility] Comment on above:Order Comment: No: Do not add to previous drawPerformed By: #### 08546, 81416, 75040, 57845 #### [facility] [address] [place] [address], USAOxygen (Bld) [Partial pressure]49 mm[Hg]Critically low 83-108The [facility] Medical CenterComment on above:Order Comment: No: Do not add to previous drawPerformed By: #### 89552, 40863, 43017, 46077 #### [facility] [address] [place] [address], USAOxygen saturation in Blood87.3 %Critically low94.0-97.0The [facility] Medical CenterComment on above:Order Comment: No: Do not add to previous drawPerformed By: #### 07525, 52619, 50545, 03246 #### [facility] [address] [place] [address], IBIEFK460 mmHgCritically jarb09-69Nqf [facility] CenterComment on above:Order Comment: No: Do not add to previous draw Performed By: #### 62213, 42692, 67078, 36054 #### [facility] [address] [place] [address], USApH (Bld)7.45 [pH]Normal7.35-7.45The [facility] Medical CenterComment on above:Order Comment: No: Do not add to previous draw Performed By: #### 40551, 56310, 76328, 57318 #### [facility] [address] [place] [address], MULXHW77.2 g/wKFhjhpv99.0-16.3The [facility] CenterComment on above:Order Comment: No: Do not add to previous drawPerformed By: #### 68125, 89936, 99752, 20849 #### [facility] [address] [place] [address], USABASIC METABOLIC PANELon 71-48-9060Bsptkop [Mass/Vol]9.0 mg/dLNormal8.6-10.3The [facility] CenterComment on above:Order Comment: No: Do not add to previous drawPerformed By: #### 67991, 58732, 25524, 63911 #### [facility] [address] [place] [address], USAChloride [Moles/Vol]93 mmol/YMfy66-099Fxm [facility] CenterComment on above:Order Comment: No: Do not add to previous drawPerformed By: #### 29640, 60184, 29370, 43882 #### [facility] [address] [place] [address], USACO2 [Moles/Vol]36 mmol/FUmwq06-86Xhz [facility] CenterComment on above:Order Comment: No: Do not add to previous draw Performed By: #### 87423, 83297, 92395, 54515 #### [facility] [address] [place] [address], USACreatinine [Mass/Vol]1.30 mg/dLNormal0.70-1.30The [facility] CenterComment on above:Order Comment: No: Do not add to previous drawPerformed By: #### 37381, 32880, 87589, 80614 #### [facility] [address] [place] [address], USAGFR/1.73 sq M predicted among blacks MDRD (S/P/Bld) [Vol rate/Area]mL/min/{1.73_m2}Normal>60The [facility] Comment on above:Order Comment: No: Do not add to previous drawPerformed By: #### 26212, 37309, 01588, 27966 #### [facility] [address] [place] [address], USAGFR/1.73 sq M predicted among non-blacks MDRD (S/P/Bld) [Vol rate/Area]56 ml/min/1.73sq mAbnormal>60The [facility] CenterComment on above:Order Comment: No: Do not add to previous drawPerformed By: #### 98521, 97202, 97158, 17184 #### [facility] [address] [place] [address], USAGlucose [Mass/Vol]147 mg/cDEdnd23-875Zmm [facility] CenterComment on above:Order Comment: No: Do not add to previous drawPerformed By: #### 05626, 95035, 83305, 20039 #### [facility] [address] [place] [address], USAPotassium [Moles/Vol]4.2 mmol/LNormal3.5-5.1The [facility] CenterComment on above:Order Comment: No: Do not add to previous drawPerformed By: #### 74995, 54846, 53043, 77191 #### [facility] [address] [place] [address], USASodium [Moles/Vol]136 mmol/GUmtrok563-713Vaz [facility] CenterComment on above:Order Comment: No: Do not add to previous drawPerformed By: #### 97432, 33542, 68439, 32462 #### [facility] [address] [place] [address], USAUrea nitrogen [Mass/Vol]31 mg/dLHigh7-25The [facility] CenterComment on above:Order Comment: No: Do not add to previous drawPerformed By: #### 13376, 05538, 69645, 66182 #### [facility] [address] [place] [address], USAMAGNESIUM BLOODon [id number] [Mass/Vol]2.0 mg/dL Normal1.9-2.7The [facility] CenterComment on above:Order Comment: No: Do not add to previous drawPerformed By: #### 83091, 92289, 17253, 21538 #### [facility] [address] [place] [address], USAPOC GLUCOSE LABon 68-05-1926Bojcrwi [Mass/Vol]156 mg/dLHigh 70-100The [facility] CenterComment on above:Performed By: #### 98571, 30565, 04616, 95142 #### [facility] [address] [place] [address], USAGlucose [Mass/Vol]220 mg/nLMoyt11-212Dxq [facility] CenterComment on above:Performed By: #### 17330, 25976, 77810, 64410 #### [facility] [address] [place] [address], USAGlucose [Mass/Vol]138 mg/sMCfrb43-542Svp [facility] CenterComment on above:Performed By: #### 94947, 33830, 93359, 62690 #### [facility] [address] [place] [address], USABASIC METABOLIC PANELon 99-46-2451Cunfzly [Mass/Vol]8.9 mg/dLNormal8.6-10.3The [facility] CenterComment on above:Order Comment: No: Do not add to previous drawPerformed By: #### 01976, 81127, 64037, 69363 #### [facility] [address] [place] [address], USAChloride [Moles/Vol]95 mmol/AMly03-296Zjj [facility] CenterComment on above:Order Comment: No: Do not add to previous drawPerformed By: #### 25906, 77255, 95342, 44685 #### [facility] [address] [place] [address], USACO2 [Moles/Vol]35 mmol/XQqea41-30Awl [facility] CenterComment on above:Order Comment: No: Do not add to previous draw Performed By: #### 81574, 50200, 52330, 55758 #### [facility] [address] [place] [address], USACreatinine [Mass/Vol]1.35 mg/dLHigh0.70-1.30The [facility] CenterComment on above:Order Comment: No: Do not add to previous drawPerformed By: #### 63522, 91472, 91838, 04304 #### [facility] [address] [place] [address], USAGFR/1.73 sq M predicted among blacks MDRD (S/P/Bld) [Vol rate/Area]mL/min/{1.73_m2}Normal>60The [facility] Comment on above:Order Comment: No: Do not add to previous drawPerformed By: #### 91583, 31156, 87898, 58582 #### [facility] [address] [place] [address], USAGFR/1.73 sq M predicted among non-blacks MDRD (S/P/Bld) [Vol rate/Area]53 ml/min/1.73sq mAbnormal>60The [facility] CenterComment on above:Order Comment: No: Do not add to previous drawPerformed By: #### 58824, 72363, 19162, 56286 #### [facility] [address] [place] [address], USAGlucose [Mass/Vol]172 mg/lXPule46-145Fyi [facility] CenterComment on above:Order Comment: No: Do not add to previous drawPerformed By: #### 98080, 12802, 85938, 13642 #### [facility] [address] [place] [address], USAPotassium [Moles/Vol]4.0 mmol/LNormal3.5-5.1The [facility] CenterComment on above:Order Comment: No: Do not add to previous drawPerformed By: #### 57582, 53291, 50114, 03264 #### [facility] [address] [place] [address], USASodium [Moles/Vol]139 mmol/BNiqgkg646-527Sim [facility] CenterComment on above:Order Comment: No: Do not add to previous drawPerformed By: #### 65491, 65597, 16103, 71763 #### [facility] [address] [place] [address], USAUrea nitrogen [Mass/Vol]30 mg/dLHigh7-25The [facility] CenterComment on above:Order Comment: No: Do not add to previous drawPerformed By: #### 45884, 98355, 91378, 58162 #### [facility] [address] [facility] [place] [address], USACBC W/DIFFon [id number] BASOPHILS0.0 10*3/uLNormal 0.0-0.2The [facility] CenterComment on above:Order Comment: No: Do not add to previous drawPerformed By: #### 41897, 26039, 34573, 68915 #### [facility] [address] [facility] [place] [address], USAABS IMM GRANS0.0 10*3/uLNormal0.0-0.2The [facility] CenterComment on above:Order Comment: No: Do not add to previous drawPerformed By: #### 83094, 11697, 18011, 90599 #### [facility] [address] [facility] [place] [address], USAABS NEUTROPHILS5.7 10*3/uLNormal1.6-7.6The [facility] CenterComment on above:Order Comment: No: Do not add to previous drawPerformed By: #### 01245, 36305, 99332, 39529 #### [facility] [address] [facility] [place] [place] [address], USABasophils/100 WBC (Bld)0.2 %Normal0.0-1.0The [facility] CenterComment on above:Order Comment: No: Do not add to previous drawPerformed By: #### 90753, 58168, 26390, 94904 #### [facility] [address] [facility] [place] [address], USAEosinophils (Bld) [#/Vol]0.2 10*3/uLNormal0.0-0.5The [facility] CenterComment on above:Order Comment: No: Do not add to previous drawPerformed By: #### 77467, 12969, 68663, 63370 #### [facility] [address] [place] [address], USAEosinophils/100 WBC (Bld)1.8 %Normal0.0-6.0The [facility] CenterComment on above:Order Comment: No: Do not add to previous drawPerformed By: #### 28334, 61596, 72100, 88233 #### [facility] [address] [place] [address], USAErythrocyte distribution width (RBC) [Ratio]13.3 %Normal 11.5-15.0The [facility] CenterComment on above:Order Comment: No: Do not add to previous drawPerformed By: #### 71145, 21457, 35251, 87430 #### [facility] [address] [place] [address], USAHematocrit (Bld) [Volume fraction]44.2 %Tjsfuq89.0-50.0The [facility] CenterComment on above:Order Comment: No: Do not add to previous drawPerformed By: #### 06129, 83434, 18002, 66374 #### [facility] [address] [place] [address], USAHemoglobin (Bld) [Mass/Vol]13.8 g/tQCfprvd12.0-17.0The [facility] CenterComment on above:Order Comment: No: Do not add to previous drawPerformed By: #### 05124, 80868, 72524, 14311 #### [facility] [address] [facility] [place] [address], USAIMMATURE GRANS0.4 %Normal0.0-1.0The [facility] CenterComment on above:Order Comment: No: Do not add to previous draw Performed By: #### 79281, 18903, 68448, 73822 #### [facility] [address] [place] [address], USALymphocytes (Bld) [#/Vol]1.6 10*3/uLNormal1.2-4.0The [facility] CenterComment on above:Order Comment: No: Do not add to previous drawPerformed By: #### 98188, 17998, 75870, 84526 #### [facility] [address] [place] [address], USALymphocytes/100 WBC (Bld)19.6 %Low20.0-45.0The [facility] CenterComment on above:Order Comment: No: Do not add to previous drawPerformed By: #### 28859, 46992, 25065, 83592 #### [facility] [address] [place] [address], [facility] (RBC) [Entitic mass]29.1 bwPwclqb75.0-33.0The [facility] CenterComment on above:Order Comment: No: Do not add to previous drawPerformed By: #### 77912, 47973, 53654, 21023 #### [facility] [address] [place] [address], [facility] (RBC) [Mass/Vol]31.2 g/dLLow32.0-35.0The [facility] CenterComment on above:Order Comment: No: Do not add to previous drawPerformed By: #### 89014, 55391, 46899, 56089 #### [facility] [address] [place] [address], [facility]V (RBC) [Entitic vol]93.2 sUAmzywu25.0-98.0The [facility] CenterComment on above:Order Comment: No: Do not add to previous drawPerformed By: #### 79856, 03807, 29914, 47741 #### [facility] [address] [place] [address], USAMonocytes (Bld) [#/Vol]0.6 10*3/uLNormal0.1-1.0The [facility] CenterComment on above:Order Comment: No: Do not add to previous drawPerformed By: #### 49530, 48971, 87544, 73711 #### [facility] [address] [place] [address], USAMONOS7.7 %Normal5.0-12.0The [facility] CenterComment on above:Order Comment: No: Do not add to previous drawPerformed By: #### 22059, 95634, 42968, 22378 #### [facility] [address] [place] [address], USANeutrophils/100 WBC (Bld)70.3 %Kpzbob16.0-72.0The [facility] CenterComment on above:Order Comment: No: Do not add to previous drawPerformed By: #### 45194, 84972, 44435, 43819 #### [facility] [address] [place] [address], USANucleated RBC/100 WBC (Bld) [Ratio]0 %Normal0-0The [facility] CenterComment on above:Order Comment: No: Do not add to previous drawPerformed By: #### 16243, 71256, 19272, 91646 #### [facility] [address] [place] [address], USAPLAT SGS924 10*3/ySUesmxs044-703Isd [facility] CenterComment on above:Order Comment: No: Do not add to previous draw Performed By: #### 88784, 93065, 40582, 31266 #### [facility] [address] [place] [address], USARBC (Bld) [#/Vol]4.74 10*6/uLNormal4.20-5.70The [facility] CenterComment on above:Order Comment: No: Do not add to previous drawPerformed By: #### 59760, 67118, 00946, 29247 #### [facility] [address] [facility] [place] [address], USAWBC (Bld) [#/Vol]8.16 10*3/uLNormal4.00-10.60The [facility] CenterComment on above:Order Comment: No: Do not add to previous drawPerformed By: #### 65088, 60550, 37817, 20802 #### [facility] [address] [facility] [place] [address], USACardiovascular Lab Reporton [id number] Lab ReportUnWVUMedicine [facility] Mackenzie Doherty MR #: [id number] Department of Physician: Reema Taveras MD Division of Service Date: 06/14/2019 Cardiology Birthdate: 1955 Adult Cardiovascular Room #: 3CD [id number] [place] [address] Cardiovascular Laboratory Report CEO: Dr. Carolyn Montero, dry pan feeder. INDICATIONS: This is a 63-year-old man with [...] The patient was also notified that a dry pan feeder will be assisting during the course of [...] internal jugular vein. Then, we inserted a 6-Greek x 11 cm glide sheath and advanced [...] elevated wedge pressure at 17 mmHg and cmdo-nu-mouoceuh elevation in his right-sided pressures. His RA [...] Taveras MD Date Trans: 06/14/2019 01:05 P/anselmo DN_JN:[id number] cc: Josh Pro D.O. [address] [facility] [address]UznkjiZfqParkview HealthMAGNESIUM BLOOD on 43-14-5155Atpzhcviu [Mass/Vol]2.0 mg/dLNormal1.9-2.7The [facility] CenterComment on above:Order Comment: No: Do not add to previous draw Performed By: #### 61547, 66974, 44382, 13344 #### [facility] [address] [place] [address], USAPOC GLUCOSE LABon 19-00-5704Ylnsirj [Mass/Vol]305 mg/dLHigh 70-100The [facility] CenterComment on above:Performed By: #### 15333, 27862, 66378, 63991 #### [facility] [address] [place] [address], USAGlucose [Mass/Vol]299 mg/jRCiey52-695Ttu [facility] CenterComment on above:Performed By: #### 60822, 51473, 82019, 54751 #### [facility] [address] [place] [address], USAGlucose [Mass/Vol]177 mg/fGCscz14-720Doh [facility] CenterComment on above:Performed By: #### 08676, 75740, 39717, 92984 #### [facility] [address] [place] [address], USAGlucose [Mass/Vol]194 mg/aDNxqt89-952Lyg [facility] CenterComment on above:Performed By: #### 09140, 07582, 97434, 60605 #### [facility] [address] [place] [address], USAGlucose [Mass/Vol]163 mg/qIUnnu59-611Sqi [facility] CenterComment on above:Performed By: #### 15611, 73824, 35887, 77256 #### [facility] [address] [place] [address], USABASIC METABOLIC PANELon 92-73-2764Wyofevc [Mass/Vol]9.3 mg/dLNormal8.6-10.3The [facility] CenterComment on above:Order Comment: No: Do not add to previous drawPerformed By: #### 68414, 34739, 01977, 63377 #### [facility] [address] [place] [address], USAChloride [Moles/Vol]98 mmol/TFvhwke49-315Nmf [facility] CenterComment on above:Order Comment: No: Do not add to previous drawPerformed By: #### 50740, 72761, 03658, 89135 #### [facility] [address] [place] [address], USACO2 [Moles/Vol]39 mmol/ZKgdo87-06Wqj [facility] CenterComment on above:Order Comment: No: Do not add to previous draw Performed By: #### 62040, 07491, 43077, 25568 #### [facility] [address] [place] [address], USACreatinine [Mass/Vol]1.35 mg/dLHigh0.70-1.30The [facility] CenterComment on above:Order Comment: No: Do not add to previous drawPerformed By: #### 14908, 80487, 18361, 30847 #### [facility] [address] [place] [address], USAGFR/1.73 sq M predicted among blacks MDRD (S/P/Bld) [Vol rate/Area]mL/min/{1.73_m2}Normal>60The [facility] Comment on above:Order Comment: No: Do not add to previous drawPerformed By: #### 15100, 12964, 25309, 73456 #### [facility] [address] [place] [address], USAGFR/1.73 sq M predicted among non-blacks MDRD (S/P/Bld) [Vol rate/Area]53 ml/min/1.73sq mAbnormal>60The [facility] CenterComment on above:Order Comment: No: Do not add to previous drawPerformed By: #### 81959, 98443, 53796, 54603 #### [facility] [address] [place] [address], USAGlucose [Mass/Vol]90 mg/gQBxqfzm56-211Luh [facility] CenterComment on above:Order Comment: No: Do not add to previous drawPerformed By: #### 64023, 91124, 93792, 09426 #### [facility] [address] [place] [address], USAPotassium [Moles/Vol]3.8 mmol/LNormal3.5-5.1The [facility] CenterComment on above:Order Comment: No: Do not add to previous drawPerformed By: #### 68504, 21921, 44949, 51909 #### [facility] [address] [place] [address], USASodium [Moles/Vol]143 mmol/SRyesnp785-255Pha [facility] CenterComment on above:Order Comment: No: Do not add to previous drawPerformed By: #### 48204, 02825, 33567, 40456 #### [facility] [address] [place] [address], USAUrea nitrogen [Mass/Vol]28 mg/dLHigh7-25The [facility] CenterComment on above:Order Comment: No: Do not add to previous drawPerformed By: #### 18086, 87799, 18460, 14403 #### [facility] [address] [facility] [place] [address], USACBC W/DIFFon 27-17-6089DYS BASOPHILS0.0 10*3/uLNormal 0.0-0.2The [facility] CenterComment on above:Order Comment: No: Do not add to previous drawPerformed By: #### 28342, 75381, 55049, 76790 #### [facility] [address] [place] [address], USAABS IMM GRANS0.0 10*3/uLNormal0.0-0.2The [facility] CenterComment on above:Order Comment: No: Do not add to previous drawPerformed By: #### 00172, 73089, 58353, 77772 #### [facility] [address] [place] [address], USAABS NEUTROPHILS5.6 10*3/uLNormal1.6-7.6The [facility] CenterComment on above:Order Comment: No: Do not add to previous drawPerformed By: #### 67655, 09984, 29116, 44541 #### [facility] [address] [facility] [place] [address], USABasophils/100 WBC (Bld)0.2 %Normal0.0-1.0The [facility] CenterComment on above:Order Comment: No: Do not add to previous drawPerformed By: #### 57849, 02182, 40923, 68193 #### [facility] [address] [place] [address], USAEosinophils (Bld) [#/Vol]0.2 10*3/uLNormal0.0-0.5The [facility] CenterComment on above:Order Comment: No: Do not add to previous drawPerformed By: #### 36825, 35027, 99972, 12771 #### [facility] [address] [facility] [place] [address], USAEosinophils/100 WBC (Bld)2.4 %Normal0.0-6.0The [facility] CenterComment on above:Order Comment: No: Do not add to previous drawPerformed By: #### 92159, 82798, 15224, 64637 #### [facility] [address] [place] [address], USAErythrocyte distribution width (RBC) [Ratio]13.5 %Normal 11.5-15.0The [facility] CenterComment on above:Order Comment: No: Do not add to previous drawPerformed By: #### 57471, 58296, 06849, 31046 #### [facility] [address] [place] [address], USAHematocrit (Bld) [Volume fraction]44.3 %Kuhuzk49.0-50.0The [facility] CenterComment on above:Order Comment: No: Do not add to previous drawPerformed By: #### 64052, 27451, 99604, 18271 #### [facility] [address] [place] [address], USAHemoglobin (Bld) [Mass/Vol]14.0 g/pTBloofs11.0-17.0The [facility] CenterComment on above:Order Comment: No: Do not add to previous drawPerformed By: #### 16760, 55375, 33009, 48442 #### [facility] [address] [place] [address], USAIMMATURE GRANS0.4 %Normal0.0-1.0The [facility] CenterComment on above:Order Comment: No: Do not add to previous draw Performed By: #### 56817, 22458, 56329, 17348 #### [facility] [address] [place] [address], USALymphocytes (Bld) [#/Vol]1.6 10*3/uLNormal1.2-4.0The [facility] CenterComment on above:Order Comment: No: Do not add to previous drawPerformed By: #### 98593, 93788, 03832, 28400 #### [facility] [address] [place] [address], USALymphocytes/100 WBC (Bld)19.7 %Low20.0-45.0The [facility] CenterComment on above:Order Comment: No: Do not add to previous drawPerformed By: #### 15085, 19195, 54229, 86247 #### [facility] [address] [place] [address], [facility] (RBC) [Entitic mass]29.3 yvGapjwi25.0-33.0The [facility] CenterComment on above:Order Comment: No: Do not add to previous drawPerformed By: #### 49705, 95897, 01606, 03892 #### [facility] [address] [place] [address], [facility] (RBC) [Mass/Vol]31.6 g/dLLow32.0-35.0The [facility] CenterComment on above:Order Comment: No: Do not add to previous drawPerformed By: #### 67601, 41593, 86461, 35374 #### [facility] [address] [place] [address], [facility] (RBC) [Entitic vol]92.7 vAByudkt47.0-98.0The [facility] CenterComment on above:Order Comment: No: Do not add to previous drawPerformed By: #### 97099, 69713, 88837, 83289 #### [facility] [address] [place] [address], USAMonocytes (Bld) [#/Vol]0.6 10*3/uLNormal0.1-1.0The [facility] CenterComment on above:Order Comment: No: Do not add to previous drawPerformed By: #### 72924, 93943, 15944, 10226 #### [facility] [address] [place] [address], USAMONOS7.8 %Normal5.0-12.0The [facility] CenterComment on above:Order Comment: No: Do not add to previous drawPerformed By: #### 15145, 40823, 59777, 53716 #### [facility] [address] [place] [address], USANeutrophils/100 WBC (Bld)69.5 %Axpryj66.0-72.0The [facility] CenterComment on above:Order Comment: No: Do not add to previous drawPerformed By: #### 31133, 94699, 20340, 44667 #### [facility] [address] [place] [address], USANucleated RBC/100 WBC (Bld) [Ratio]0 %Normal0-0The [facility] CenterComment on above:Order Comment: No: Do not add to previous drawPerformed By: #### 11109, 30687, 91698, 17406 #### [facility] [address] [place] [address], USAPLAT YFR887 10*3/uZAccinb918-862Suq [facility] CenterComment on above:Order Comment: No: Do not add to previous draw Performed By: #### 33834, 09479, 88329, 86515 #### [facility] [address] [place] [address], USARBC (Bld) [#/Vol]4.78 10*6/uLNormal4.20-5.70The [facility] CenterComment on above:Order Comment: No: Do not add to previous drawPerformed By: #### 82869, 11325, 71260, 31807 #### [facility] [address] [place] [address], USAWBC (Bld) [#/Vol]8.04 10*3/uLNormal4.00-10.60The [facility] CenterComment on above:Order Comment: No: Do not add to previous drawPerformed By: #### 64204, 03988, 78710, 20837 #### [facility] [address] [place] [address], USAHEMOGLOBIN A1Con 21-97-7558YfF8n (Bld) [Mass fraction]8.1 % High4.0-6.0The [facility] CenterComment on above:Order Comment: No: Do not add to previous drawPerformed By: #### 55264, 69615, 86977, 02277 #### [facility] [address] [place] [address], VJJIyS4e (Bld) [Mass fraction]186 mg/hSPtyp10-656Vmz [facility] CenterComment on above:Order Comment: No: Do not add to previous drawPerformed By: #### 38902, 45158, 55733, 77582 #### [facility] [address] [place] [address], USAMAGNESIUM BLOODon 96-36-8085Shkrwlvmk [Mass/Vol]2.2 mg/dL Normal1.9-2.7The [facility] CenterComment on above:Order Comment: No: Do not add to previous drawPerformed By: #### 23701, 32835, 91636, 94321 #### [facility] [address] [place] [address], USAPHOSPHORUS BLOODon 64-34-9294Gwzsutssl [Mass/Vol]3.7 mg/dL Normal2.5-5.0The [facility] CenterComment on above:Order Comment: No: Do not add to previous drawPerformed By: #### 15131, 06983, 18299, 40132 #### [facility] [address] [place] [address], USAPOC GLUCOSE LABon 05-05-7601Hxmooen [Mass/Vol]156 mg/dLHigh 70-100The [facility] CenterComment on above:Performed By: #### 17880, 43755, 49132, 75432 #### [facility] [address] [place] [address], USAGlucose [Mass/Vol]90 mg/uFHjtxmg47-641Wgg [facility] CenterComment on above:Performed By: #### 64556, 30304, 25038, 71837 #### [facility] [address] [place] [address], USAGlucose [Mass/Vol]220 mg/mNYkrp36-119Lpi [facility] CenterComment on above:Performed By: #### 58578, 31223, 03091, 44131 #### [facility] [address] [place] [address], USABASIC METABOLIC PANELon 12-45-4008Xzjstbf [Mass/Vol]8.7 mg/dLNormal8.6-10.3The [facility] CenterComment on above:Order Comment: If not done in ED No: Do not add to previous drawPerformed By: #### 62328 #### [facility] [address] [place] [address], USAChloride [Moles/Vol]95 mmol/NPfn78-864Xmo [facility] CenterComment on above:Order Comment: If not done in ED No: Do not add to previous drawPerformed By: #### 24419 #### [facility] [address] [place] [address], USACO2 [Moles/Vol]36 mmol/VHdgq31-56Abd [facility] CenterComment on above:Order Comment: If not done in ED No: Do not add to previous drawPerformed By: #### 73456 #### [facility] [address] [place] [address], USACreatinine [Mass/Vol]1.28 mg/dLNormal0.70-1.30The [facility] CenterComment on above:Order Comment: If not done in ED No: Do not add to previous drawPerformed By: #### 39679 #### [facility] [address] [place] [address], USAGFR/1.73 sq M predicted among blacks MDRD (S/P/Bld) [Vol rate/Area]mL/min/{1.73_m2}Normal>60The [facility] Comment on above:Order Comment: If not done in ED No: Do not add to previous drawPerformed By: #### 44031 #### [facility] [address] [place] [address], USAGFR/1.73 sq M predicted among non-blacks MDRD (S/P/Bld) [Vol rate/Area]57 ml/min/1.73sq mAbnormal>60The [facility] CenterComment on above:Order Comment: If not done in ED No: Do not add to previous drawPerformed By: #### 34909 #### [facility] [address] [place] [address], USAGlucose [Mass/Vol]83 mg/xHFtrezh09-654Mpq [facility] CenterComment on above:Order Comment: If not done in ED No: Do not add to previous drawPerformed By: #### 23087 #### [facility] [address] [place] [address], USAPotassium [Moles/Vol]3.7 mmol/LNormal3.5-5.1The [facility] CenterComment on above:Order Comment: If not done in ED No: Do not add to previous drawPerformed By: #### 34077 #### [facility] [address] [place] [address], USASodium [Moles/Vol]140 mmol/AOrzdge824-840Evt [facility] CenterComment on above:Order Comment: If not done in ED No: Do not add to previous drawPerformed By: #### 28726 #### [facility] [address] [place] [address], USAUrea nitrogen [Mass/Vol]30 mg/dLHigh7-25The [facility] CenterComment on above:Order Comment: If not done in ED No: Do not add to previous drawPerformed By: #### 29789 #### [facility] [address] [place] [address], USACBC COMPLETE BLOOD COUNTon 99-87-1046Ajmumtjhhdh distribution width (RBC) [Ratio]13.4 %Kauitb47.5-15.0The [facility] CenterComment on above:Order Comment: If not done in ED No: Do not add to previous drawPerformed By: #### 91335 #### [facility] [address] [place] [address], USAHematocrit (Bld) [Volume fraction]42.2 %Vedbuw35.0-50.0The [facility] CenterComment on above:Order Comment: If not done in ED No: Do not add to previous drawPerformed By: #### 41504 #### [facility] [address] [place] [address], USAHemoglobin (Bld) [Mass/Vol]12.9 g/dLLow13.0-17.0The [facility] CenterComment on above:Order Comment: If not done in ED No: Do not add to previous drawPerformed By: #### 42173 #### [facility] [address] [place] [address], USAMCH (RBC) [Entitic mass]28.8 blFpjqeu53.0-33.0The [facility] CenterComment on above:Order Comment: If not done in ED No: Do not add to previous drawPerformed By: #### 22940 #### [facility] [address] [place] [address], USAMCHC (RBC) [Mass/Vol]30.6 g/dLLow32.0-35.0The [facility] CenterComment on above:Order Comment: If not done in ED No: Do not add to previous drawPerformed By: #### 19461 #### [facility] [address] [place] [address], USAMCV (RBC) [Entitic vol]94.2 iBBpeelr22.0-98.0The [facility] CenterComment on above:Order Comment: If not done in ED No: Do not add to previous drawPerformed By: #### 56073 #### [facility] [address] [place] [address], USANucleated RBC/100 WBC (Bld) [Ratio]0 %Normal0-0The [facility] CenterComment on above:Order Comment: If not done in ED No: Do not add to previous drawPerformed By: #### 99549 #### [facility] [address] [place] [address], USAPLAT ELI683 10*3/kTTkctnl026-819Ocm [facility] CenterComment on above:Order Comment: If not done in ED No: Do not add to previous drawPerformed By: #### 19487 #### [facility] [address] [place] [address], [facility] ROSWELLRBC (Bld) [#/Vol]4.48 10*6/uLNormal4.20-5.70The [facility] CenterComment on above:Order Comment: If not done in ED No: Do not add to previous drawPerformed By: #### 84888 #### [facility] [address] [place] [address], [facility] ROSWELLWBC (Bld) [#/Vol]8.80 10*3/uLNormal4.00-10.60The [facility] CenterComment on above:Order Comment: If not done in ED No: Do not add to previous drawPerformed By: #### 23427 #### [facility] [address] [place] [address], USAMAGNESIUM BLOODon 37-11-9943Qcwrqhrfg [Mass/Vol]1.8 mg/dL Low1.9-2.7The [facility] CenterComment on above:Order Comment: If not done in ED No: Do not add to previous drawPerformed By: #### 76109 #### [facility] [address] [place] [address], USAPHOSPHORUS BLOODon 16-48-5745Wusrjymvz [Mass/Vol]3.9 mg/dL Normal2.5-5.0The [facility] CenterComment on above:Order Comment: If not done in ED No: Do not add to previous drawPerformed By: #### 73882 #### [facility] [address] [place] [address], USAPOC GLUCOSE LABon 51-68-9118Qeqaizy [Mass/Vol]323 mg/dLHigh 70-100The [facility] CenterComment on above:Performed By: #### 83407 #### [facility] [address] [place] [address], USAGlucose [Mass/Vol]284 mg/cDFgfp94-086Hgo [facility] CenterComment on above:Performed By: #### 50774 #### [facility] [address] [place] [address], USAGlucose [Mass/Vol]243 mg/pMKczj87-958Rmj [facility] CenterComment on above:Performed By: #### 90082 #### [facility] [address] [place] [address], USAGlucose [Mass/Vol]82 mg/lWJetylb05-671Rbc [facility] CenterComment on above:Performed By: #### 79659 #### [facility] [address] [place] [address], USAARTERIAL BLOOD GAS WITH ICAon 89-08-4484SFOZ OTUQGW80 mmol/MEcyu-7-1Lvk [facility] CenterComment on above:Order Comment: RESULTS CHECKED AND CALLED. ACCURATELY READ BACK BY ARNULFO MOSER RN Performed By: #### 64879 #### [facility] [address] [place] [address], USADELIVERY SYSTEMSNASAL CANNULANormalThe [facility] CenterComment on above:Order Comment: RESULTS CHECKED AND CALLED. ACCURATELY READ BACK BY ARNULFO BANKSerformed By: #### 57564 #### [facility] [address] [place] [address], USAHCO3 (Bld) [Moles/Vol]41 mmol/LCritically zvhr44-07Yow [facility] CenterComment on above:Order Comment: RESULTS CHECKED AND CALLED. ACCURATELY READ BACK BY ARNULFO BANKSerformed By: #### 21355 #### [facility] [address] [place] [address], USAIONIZED CALCIUM1.10 mmol/LLow1.13-1.32The [facility] CenterComment on above:Order Comment: RESULTS CHECKED AND CALLED. ACCURATELY READ BACK BY ARNULFO BANKSerformed By: #### 26789 #### [facility] [address] [place] [address], USALPM3.0 LPMNormalThe [facility] Comment on above:Order Comment: RESULTS CHECKED AND CALLED. ACCURATELY READ BACK BY ARNULFO BANKSerformed By: #### 30758 #### [facility] [address] [place] [address], USAOxygen (Bld) [Partial pressure]63 mm[Hg]Nss77-287Tii [facility] CenterComment on above:Order Comment: RESULTS CHECKED AND CALLED. ACCURATELY READ BACK BY ARNULFO BANKSerformed By: #### 61270 #### [facility] [address] [place] [address], USAOxygen saturation in Blood91.9 %Low94.0-97.0The [facility] CenterComment on above:Order Comment: RESULTS CHECKED AND CALLED. ACCURATELY READ BACK BY ARNULFO BANKSerformed By: #### [id number] #### [facility] [address] [place] [address], CTEULP546 mmHgCritically jxrt01-38Uvj [facility] CenterComment on above:Order Comment: RESULTS CHECKED AND CALLED. ACCURATELY READ BACK BY ARNULFO BANKSerformed By: #### 91268 #### [facility] [address] [place] [address], USApH (Bld)7.38 [pH]Normal7.35-7.45The [facility] Geneva Medical CenterComment on above:Order Comment: RESULTS CHECKED AND CALLED. ACCURATELY READ BACK BY ARNULFO MOSER RNPerformed By: #### 74588 #### [facility] [address] [place] [address], USABASIC METABOLIC PANELon 48-63-8057Fwhfyhp [Mass/Vol]8.6 mg/dLNormal8.6-10.3The [facility] CenterComment on above:Order Comment: No: Do not add to previous drawPerformed By: #### 65356, 65392, 11742, 63075 #### [facility] [address] [place] [address], USAChloride [Moles/Vol]97 mmol/RJud44-744Sfs [facility] CenterComment on above:Order Comment: No: Do not add to previous drawPerformed By: #### 70355, 30265, 37453, 50619 #### [facility] [address] [place] [address], USACO2 [Moles/Vol]40 mmol/KPjzy01-48Jop [facility] CenterComment on above:Order Comment: No: Do not add to previous draw Performed By: #### 11305, 68084, 93042, 50896 #### [facility] [address] [place] [address], USACreatinine [Mass/Vol]1.62 mg/dLHigh0.70-1.30The [facility] CenterComment on above:Order Comment: No: Do not add to previous drawPerformed By: #### 60043, 56056, 77963, 11894 #### [facility] [address] [place] [address], USAGFR/1.73 sq M predicted among blacks MDRD (S/P/Bld) [Vol rate/Area]52 ml/min/1.73sq mAbnormal>60The [facility] Comment on above:Order Comment: No: Do not add to previous drawPerformed By: #### 77396, 52969, 83058, 35259 #### [facility] [address] [place] [address], USAGFR/1.73 sq M predicted among non-blacks MDRD (S/P/Bld) [Vol rate/Area]43 ml/min/1.73sq mAbnormal>60The [facility] CenterComment on above:Order Comment: No: Do not add to previous drawPerformed By: #### 12670, 06787, 16943, 17136 #### [facility] [address] [place] [address], USAGlucose [Mass/Vol]82 mg/wYOetdra06-667Fsq [facility] CenterComment on above:Order Comment: No: Do not add to previous drawPerformed By: #### 21671, 30761, 67095, 43385 #### [facility] [address] [place] [address], USAPotassium [Moles/Vol]4.0 mmol/LNormal3.5-5.1The [facility] CenterComment on above:Order Comment: No: Do not add to previous drawPerformed By: #### 29247, 11530, 68896, 05578 #### [facility] [address] [place] [address], USASodium [Moles/Vol]141 mmol/ZDrrbky939-302Mtg [facility] CenterComment on above:Order Comment: No: Do not add to previous drawPerformed By: #### 23372, 42895, 53215, 92283 #### [facility] [address] [place] [address], USAUrea nitrogen [Mass/Vol]33 mg/dLHigh7-25The [facility] CenterComment on above:Order Comment: No: Do not add to previous drawPerformed By: #### 37718, 77196, 38334, 16878 #### [facility] [address] [place] [address], USABNP (B-TYPE NATRIURETIC PEPTIDE)on 80-29-1817Alijwzhlftv peptide B (Bld) [Mass/Vol]21 pg/mLNormal0-100The [facility] CenterComment on above:Order Comment: If not done in ED No: Do not add to previous drawResult Comment: Given the appropriate clinical setting a BNP result of >100 pg/mL indicates congestive heart failure.Performed By: #### 65805 #### [facility] [address] [facility] [place] [address], [facility] ROSWELLCBC W/DIFFon 85-31-7763JHX BASOPHILS0.0 10*3/uLNormal 0.0-0.2The [facility] CenterComment on above:Order Comment: No: Do not add to previous drawPerformed By: #### 63567 #### [facility] [address] [facility] [place] [address], [facility] ROSWELLABS IMM GRANS0.0 10*3/uLNormal0.0-0.2The [facility] CenterComment on above:Order Comment: No: Do not add to previous drawPerformed By: #### 39387 #### [facility] [address] [facility] [place] [address], [facility], ROSWELLABS NEUTROPHILS7.1 10*3/uLNormal1.6-7.6The [facility] CenterComment on above:Order Comment: No: Do not add to previous drawPerformed By: #### 46391 #### [facility] [address] [facility] [place] [address], USABasophils/100 WBC (Bld)0.3 %Normal0.0-1.0The [facility] CenterComment on above:Order Comment: No: Do not add to previous drawPerformed By: #### 91318 #### [facility] [address] [place] [address], USAEosinophils (Bld) [#/Vol]0.2 10*3/uLNormal0.0-0.5The [facility] CenterComment on above:Order Comment: No: Do not add to previous drawPerformed By: #### 45131 #### [facility] [address] [place] [address], USAEosinophils/100 WBC (Bld)1.8 %Normal0.0-6.0The [facility] CenterComment on above:Order Comment: No: Do not add to previous drawPerformed By: #### 59594 #### [facility] [address] [place] [address], USAErythrocyte distribution width (RBC) [Ratio]13.7 %Normal 11.5-15.0The [facility] CenterComment on above:Order Comment: No: Do not add to previous drawPerformed By: #### 07272 #### [facility] [address] [facility] [place] [address], USAHematocrit (Bld) [Volume fraction]43.1 %Uxbrgd78.0-50.0The [facility] CenterComment on above:Order Comment: No: Do not add to previous drawPerformed By: #### 26701 #### [facility] [address] [facility] [place] [address], USAHemoglobin (Bld) [Mass/Vol]12.9 g/dLLow13.0-17.0The [facility] CenterComment on above:Order Comment: No: Do not add to previous drawPerformed By: #### 25406 #### [facility] [address] [place] [place] [address], USAIMMATURE GRANS0.3 %Normal0.0-1.0The [facility] CenterComment on above:Order Comment: No: Do not add to previous draw Performed By: #### 80936 #### [facility] [address] [place] [address], USALymphocytes (Bld) [#/Vol]1.7 10*3/uLNormal1.2-4.0The [facility] CenterComment on above:Order Comment: No: Do not add to previous drawPerformed By: #### 98301 #### [facility] [address] [place] [address], USALymphocytes/100 WBC (Bld)17.6 %Low20.0-45.0The [facility] CenterComment on above:Order Comment: No: Do not add to previous drawPerformed By: #### 54654 #### [facility] [address] [place] [address], [facility] OKEMAHH (RBC) [Entitic mass]28.6 znBsclpf58.0-33.0The [facility] CenterComment on above:Order Comment: No: Do not add to previous drawPerformed By: #### 56864 #### [facility] [address] [place] [address], [facility] OKEMAHHC (RBC) [Mass/Vol]29.9 g/dLLow32.0-35.0The [facility] CenterComment on above:Order Comment: No: Do not add to previous drawPerformed By: #### 36104 #### [facility] [address] [place] [address], [facility]EMAHV (RBC) [Entitic vol]95.6 aBRmiome63.0-98.0The [facility] CenterComment on above:Order Comment: No: Do not add to previous drawPerformed By: #### 78687 #### [facility] [address] [place] [address], USAMonocytes (Bld) [#/Vol]0.7 10*3/uLNormal0.1-1.0The [facility] CenterComment on above:Order Comment: No: Do not add to previous drawPerformed By: #### 12553 #### [facility] [address] [place] [address], USAMONOS6.9 %Normal5.0-12.0The [facility] CenterComment on above:Order Comment: No: Do not add to previous drawPerformed By: #### 55314 #### [facility] [address] [place] [address], USANeutrophils/100 WBC (Bld)73.1 %High40.0-72.0The [facility] CenterComment on above:Order Comment: No: Do not add to previous drawPerformed By: #### 50225 #### [facility] [address] [place] [address], USANucleated RBC/100 WBC (Bld) [Ratio]0 %Normal0-0The [facility] CenterComment on above:Order Comment: No: Do not add to previous drawPerformed By: #### 28614 #### [facility] [address] [place] [address], USAPLAT YPN600 10*3/jWCmljix781-701Uyy [facility] CenterComment on above:Order Comment: No: Do not add to previous draw Performed By: #### 61209 #### [facility] [address] [place] [address], USARBC (Bld) [#/Vol]4.51 10*6/uLNormal4.20-5.70The [facility] CenterComment on above:Order Comment: No: Do not add to previous drawPerformed By: #### 20558 #### [facility] [address] [place] [address], USAWBC (Bld) [#/Vol]9.68 10*3/uLNormal4.00-10.60The [facility] CenterComment on above:Order Comment: No: Do not add to previous drawPerformed By: #### 89150 #### [facility] [address] [place] [id number], USAHistory and Physicalon 18-07-3226Taoyqct and PhysicalMR#: [id number] [facility] Pt. Name: Mackenzie Dumont Admitted: 06/11/2019 Date of : 1955 Attending Physician: Vanessa Miguel M.D. Room #: 3CD [id number] Discharge Date: HISTORY AND PHYSICAL CHIEF COMPLAINT: Shortness of breath. HISTORY OF PRESENT ILLNESS: Mr. Peterson is a 63-year-old male with a past medical history of diastolic congestive heart failure, obstructive sleep apnea, obesity hypoventilation syndrome, history of DVT, hypertension, CAD, and diabetes mellitus type 2, who was transferred from [facility] for progressively worsening shortness of breath [...] diarrhea, weakness, or numbness. On presentation to [facility], the patient was in respiratory distress. [...] Diastolic CHF exacerbation: ABG on presentation to [facility] revealed a pH of 7.27, pCO2 [...] His baseline is 1.45 to 1.55 per [facility] notes. The patient will be on [...] 5000 units subcu b.i.d. Electronically Signed by: Vanessa Miguel M.D. 06/12/2019 10:41 A Vanessa Miguel M.D. Date Dict: 06/11/2019/11:31 Devon/Vanessa Miguel M.D. Date Trans: 06/11/2019 12:14 P/anselmo DN_JN:[id number]. Mary's Medical Center, Ironton CampusMAGNESIUM BLOOD on 41-19-5904Hskpepsar [Mass/Vol]1.9 mg/dLNormal1.9-2.7The [facility] CenterComment on above:Order Comment: No: Do not add to previous draw Performed By: #### 98950, 82594, 35107, 04203 #### [facility] [address] [place] [address], USAPHOSPHORUS BLOODon 92-79-8000Zzxsrdnjy [Mass/Vol]3.6 mg/dL Normal2.5-5.0The [facility] CenterComment on above:Order Comment: No: Do not add to previous drawPerformed By: #### 51254, 07853, 49852, 20364 #### [facility] [address] [place] [address], USAPOC GLUCOSE LABon 03-45-5113Gkgpeiu [Mass/Vol]168 mg/dLHigh 70-100The [facility] CenterComment on above:Performed By: #### 78701 #### [facility] [address] [place] [address], USAGlucose [Mass/Vol]235 mg/fTTmxd01-823Qvi [facility] CenterComment on above:Performed By: #### 38714 #### [facility] [address] [place] [address], USAPORTABLE CHEST 1 VIEWon 89-57-7268QKUDIZIU CHEST 1 VIEW [facility] Department of Radiology [address] [place] [id number] Patient Name: MACKENZIE DUMONT : 1955 Sex: M Age: Race: White Pt. Location: [id number] Patient Status: I Ordered Date: 06/11/2019 10:25:00 AM Completed Date: 06/11/2019 12:45 PM Requesting Provider: VANESSA MIGUEL Attending Provider: EUFEMIA VOSS Report Copy To: Signs & Symptoms: [...] Electronically signed by:Carlos Eduardo Loera. Transcribed by: [email or web address], User Resident: Electronically Signed by: CARLOS EDUARDO LOERA @ 06/11/2019 03:03 PMNormalThe [facility] CenterComment on above:Order Comment: R/O CHF TROPONIN-Ion 00-48-6137Htbiaxsk I.cardiac [Mass/Vol]0.12 ng/mLCritically high 0.00-0.04The [facility] CenterComment on above:Order Comment: No: Do not add to previous drawResult Comment: REFERENCE RANGES: 0.00 - 0.04 ng/ml NORMAL 0.05 - 0.50 ng/ml INDETERMINATE > 0.50 ng/ml CONSISTENT WITH AN M.I.Performed By: #### 77728 #### [facility] [address] [place] [address], [facility] ROSWELLTroponin I.cardiac [Mass/Vol]0.15 ng/mLCritically high 0.00-0.04The [facility] CenterComment on above:Result Comment: M-TROPONIN INITIAL CRITICAL HIGH; RESPUN AND RETESTED M-CRITICAL RESULT(S) REVIEWED, CALLED TO AND READ BACK BY ANDRE FELIX RN AT 1504 REFERENCE RANGES: 0.00 - 0.04 ng/ml NORMAL 0.05 - 0.50 ng/ml INDETERMINATE > 0.50 ng/ml CONSISTENT WITH AN M.I.Performed By: #### 61418, 71033, 86262, 59765 #### [facility] [address] Vital Signs Date TimeVital SignValuePerforming RixikxcjqAnaweitq06-70-9703 09:49-0400Body nralcq213.3 cmNicholas Brown DPM Work Phone: [phone] [place], [place] 2915410-23-2025 09:49-0400Body mass index (BMI) [Ratio]46.67 kg/f1Nfpphfeg Brown DPM Work Phone: [phone] [place], [place] 2915410-23-2025 09:49-0400Body qkotep937.34 kgNicholas Brown DPM Work Phone: [phone])[address] [place], [place] 2915410-23-2025 09:49-0400Respiratory rate18 /minNicholas Brown DPM Work Phone: [phone])[address] [place], [place] 2915407-24-2025 09:56-0400Body gghfmo343.3 cmNicholas Brown DPM Work Phone: 1([phone] [place], [place] [address]Aqsaqubcva87-55-5491 09:56-0400Body mass index (BMI) [Ratio]46.67 kg/l1Yqjkiyda Brown DPM Work Phone: [phone] [place], [place] 2915407-24-2025 09:56-0400Body gqleka065.34 kgNicholas Brown DPM Work Phone: [phone])[address] [place], [place] 2915407-24-2025 09:56-0400Respiratory rate18 /minNicholas Brown DPM Work Phone: 1(574)[address]05-15-2025 09:46-0400Body eodtjz304.3 cmNicholas Brown DPM Work Phone: [phone])[address] [place], [place] 2915405-15-2025 09:46-0400Body mass index (BMI) [Ratio]46.67 kg/l4ZazawzxoJeffry Garces DPM Work Phone: [phone] [place], [place] [address]Krmrctzdyu45-90-2821 09:46-0400Body .34 kgJeffry Garces DPM Work Phone: [phone] [place], [place] [address]Tmmwdwtiug52-95-6115 09:46-0400Respiratory rate18 /minJeffry Garces DPM Work Phone: 1(463)[facility] [place], [place] [address]Ofcawmfojj65-24-7768 10:08-0500Body fkbcao731.3 cmNicrhianna Garces DPM Work Phone: [phone])[facility] [place], [place] [address]Snjytdcpna82-48-1085 10:08-0500Body mass index (BMI) [Ratio]46.67 kg/y9MqbctqndJeffry Garces DPM Work Phone: 1(649)[facility] [place], [place] [address]Bosnxfscfm29-09-1697 10:08-0500Body vulyzi830.34 kgJeffry Garces DPM Work Phone: [phone])[facility] [place], [place] [address]Izirbcqdgi41-65-5875 10:08-0500Respiratory rate18 /minJeffry Garces DPM Work Phone: 1([phone] [place], [place] [address]Gihatbzujy70-31-7867 12:00-0400Body gykjzh509.3 cmJeffry Garces DPM Work Phone: [phone])[facility] [place], [place] [address]Cgjlihmfxz02-60-7632 12:00-0400Body mass index (BMI) [Ratio]46.67 kg/n6TsxrpjhnJeffry Garces DPM Work Phone: 1(713)1-[address] [place], [place] [address]Ocizdvzzay53-98-0355 12:00-0400Body djgney383.34 kgJeffry Garces DPM Work Phone: [phone])[facility] [place], [place] [address]Afcjuwksix29-39-9844 12:00-0400Diastolic blood matiztzn37 mm[Hg]Jeffry Garces DPM Work Phone: 1(563)867-[address] [place], [place] [address]Hiaqvexixn09-46-2175 12:00-0400Heart rate85 /min Jeffry Garces DPM Work Phone: 1(970)[facility] [place], [place] [address]Xepgnsvpmi01-50-7093 12:00-0400Systolic blood gijzslaw711 mm[Hg]Jeffry Garces DPM Work Phone: [facility] CenterDysvyyfsgo81-08-8056 11:06-0400Body rgfyaa100.3 cmCristinatracey Garces DPM Work Phone: [facility] CenterPnqhqpmokf07-49-8509 11:06-0400Body mass index (BMI) [Ratio]46.67 kg/b9Wyhtnfrx Brown DPM Work Phone: [facility] CenterVdlnbiklxx86-11-9994 11:06-0400Body .34 kgCristinatracey Garces DPM Work Phone: 1(455)689-[address] [place], [place] [address]Znxrogoxpf27-27-4894 11:06-0400Diastolic blood ptszment52 mm[Hg]Jeffry Garces DPM Work Phone: [place] [address]Bksjcxbpmo21-73-8444 11:06-0400Heart rate89 /min Jeffry Garces DPM Work Phone: [phone] [place], [place] [address]Fefbtpnkjn23-90-5891 11:06-0400Systolic blood wmdvsyxi882 mm[Hg]Jeffry Garces DPM Work Phone: [phone] [place], [place] [address]Crwcpololf40-44-1054 19:26-0500Body temperature 96.69 [degF]Latoya Moyer DO Work Phone: [place] [address]Caucya57-55-1983 19:20-0500Diastolic blood zormzdkg72 mm[Hg]Latoya Moyer DO Work Phone: 1(702)299-[address] [place] [address]-29-2021 19:20-0500Systolic blood mm[Hg]Latoya Moyer DO Work Phone: [phone]-[facility]0[place] [address]Batqng94-41-9296 19:18-8983HkM7% (BldA) [Mass fraction]96 %Latoya Moyer DO Work Phone: [place] [address]Aktycq93-11-5009 19:12-0500Heart rate71 /min Latoya Moyer DO Work Phone: [place] [address]Kmtrlg77-61-4075 19:12-0500Respiratory rate16 /minChristina Daniel DO Work Phone: [facility] Encounters Encounter DateEncounter TypeCare ProviderFacilityStart: 04-28-2025 End: 78-84-6185Zpnmmk flowskylahNicrhianna A Brown DPM Work Phone: n[facility] CI PODIATRYStart: 04-28-2025 End: 78-59-2939Mwiama flowsheetNicholas A Brown DPM Work Phone: [facility] CI PODIATRYStart: 04-28-2025 End: 76-96-1628Kciogwf encounter procedureNicholas A Brown DPM Work Phone: n[facility] CI PODIATRYComment on above:Diabetes mellitus due to underlying condition with diabetic polyneuropathy, with long-term current use of insulin (HCC) (Primary Dx); Pain due to onychomycosis of toenails of both feetStart: 04-28-2025 End: 78-76-1769bnprzbpjjkOGJKPLNP A BROWNNot AvailableStart: 01-27-2025 End: 20-11-2744Mptxgh flowsheetNicholas A Brown DPM Work Phone: [facility] CI PODIATRYStart: 01-27-2025 End: 50-64-0636Xcogzo flowsheetNicholas A Brown DPM Work Phone: n[facility] CI PODIATRYStart: 01-27-2025 End: 65-79-7834Aipcysz encounter procedureNicholas A Brown DPM Work Phone: noms CI PODIATRYComment on above:Diabetes mellitus due to underlying condition with diabetic polyneuropathy, with long-term current use of insulin (HCC) (Primary Dx); Pain due to onychomycosis of toenails of both feetStart: 01-27-2025 End: 80-28-9945uhxaaoodrxOFGAFAKX A BROWNNot AvailableStart: 11-18-2024 End: 33-00-9634Kaairq flowsheetNicholas A Brown DPM Work Phone: N[facility] CI PODIATRYStart: 11-18-2024 End: 25-73-6753Veofeu flowsCarlita Garces DPM Work Phone: [facility] CI PODIATRYStart: 11-18-2024 End: 88-94-9705Kuxlqrd encounter procedureJeffry Garces DPM Work Phone: noms CI PODIATRYComment on above:Diabetes mellitus due to underlying condition with diabetic polyneuropathy, with long-term current use of insulin ([facility]) (Primary Dx); Pain due to onychomycosis of toenails of both feetStart: 11-18-2024 End: 25-55-9025olqrfvgqpbYHXURWDB A BROWNNot AvailableStart: 09-20-2024 End: 36-79-0940Lgsspfsqb encounterJr. Ramón Victoria DO Work Phone: noms SWS ORTHOComment on above:AntibioticStart: 09-02-2024 End: 77-20-1079Bdpljr Evelyne Garces DPM Work Phone: NOJD CI PODIATRYStart: 09-02-2024 End: 44-67-7532Khbcpn Evelyne Garces DPM Work Phone: noms CI PODIATRYStart: 09-02-2024 End: 82-83-8101Yjlqqtl encounter procedureJeffry Garces DPM Work Phone: noms CI PODIATRYComment on above:Diabetes mellitus due to underlying condition with diabetic polyneuropathy, with long-term current use of insulin ([facility]) (Primary Dx); Pain due to onychomycosis of toenails of both feetStart: 09-02-2024 End: 79-78-2087jxfndfzeefLIBIMJYO A BROWNNot AvailableStart: 06-16-2024 End: 90-87-9978gfvqdhylgrCOPPVKB [facility] Hospital CenterStart: 05-06-2024 End: 29-89-3719Ibtyxf Evelyne Garces DPM Work Phone: NOM[facility] CI PODIATRYStart: 05-06-2024 End: 34-93-5976Wpaezr flowsheetNicholas A Brown DPM Work Phone: N[facility] CI PODIATRYStart: 05-06-2024 End: 63-08-7875Dqvpryc encounter procedureNicholtracey Osorio Brown DPM Work Phone: noMS CI PODIATRYComment on above:Diabetes mellitus due to underlying condition with diabetic polyneuropathy, with long-term current use of insulin ([facility]) (Primary Dx); Pain due to onychomycosis of toenails of both feetStart: 05-06-2024 End: 42-20-5126rnuiwoouafZSDAUCCO A BROWNNot AvailableStart: 02-26-2024 End: 82-94-4406Djtixw flowsheetNicholas A Brown DPM Work Phone: noMS CI PODIATRYStart: 02-26-2024 End: 99-89-9975Curdrh flowsheetNicholas A Brown DPM Work Phone: noMS CI PODIATRYStart: 02-26-2024 End: 94-16-6712Pmonfou encounter procedureNicrhianna Devon Brown DPM Work Phone: N[facility] CI PODIATRYComment on above:Diabetes mellitus due to underlying condition with diabetic polyneuropathy, with long-term current use of insulin ([facility]) (Primary Dx); Onychomycosis; Toe pain, bilateralStart: 09-04-2023 End: 34-63-3162mdskzrfqnnVMKRLMBV A BROWNNot AvailableStart: 06-26-2023 End: 70-53-3589jnzmhcdhufZPTNRSCH eDvon BROWNNot AvailableStart: 04-08-2022 End: 94-67-4067cqoqyjhaacRQ DANIEL A HERRINGFacility:T6Oexaa: 10-29-2021 End: 23-68-7760gcdmzaviidQGShivam PROFacility:X4Rifsr: 06-04-2021 End: 21-40-8540Owkxrquvg department patient visitDANI Jay [facility] Hospitaltart: 06-04-2021 End: 59-79-9563Bsiwsddjr department patient visitChrisnikolay Chas Moyer DO Work Phone: [facility] EDComment on above:Hypoglycemia (Primary Dx)Start: 06-11-2019 End: 27-39-3344Sfihqxkogc and management of inpatientSterrance Voss Facility:[facility] Procedures DateProcedureProcedure DetailPerforming ClinicianStart: 42-44-5126NYH screening DR JOSH Matson on above:Performed By: #### PSASC #### [facility] [address] [place] [address] Dr. Constantin YepezStart: 58-33-6255POPCVZN, WHOLE BLOODChristina R Daniel DO Work Phone: Start: 02-36-0320Yyjeytrkao microscopic onlySherine SALVADOR-Janel Work Phone: Start: 18-28-5809Svgbe dip stick/tablet rgnt auto w/o microscopySherine SALVADOR-Janel Work Phone: Start: 06-04-2021 End: 47-38-4831VLJONWX, WHOLE BLOODChristina R Daniel DO Work Phone: Start: 56-95-7258Isofuej [Moles/volume] in Serum or PlasmaSherine SALVADOR-Janel Work Phone: Start: 06-04-2021 End: 60-40-1082ZZCLXEB, WHOLE BLOODChristina R Daniel DO Work Phone: Start: 98-61-8686VKSNM GAS, ARTERIALAmy Jacobo SALVADOR-C Work Phone: Start: 49-07-3425Lbw routine ecg w/least 12 lds w/i&r Sherine Pink PA-C Work Phone: Start: 06-04-2021 End: 79-13-5546Zbgnp of magnesiumSherine SALVADOR-Janel Work Phone: Start: 18-18-3336OFWRLZTBFI WITH RESPIRATORY VENTILATION, <24 HRS, CPAPSHREYAS B PATELStart: 04-89-5772BIERSNC OF CARDIAC SAMPL \T\ PRESSURE, R HEART, PERC APPROACHMOSHRIK CLARE ALAMIRStart: 06-13-2019 ASSISTANCE WITH RESPIRATORY VENTILATION, <24 HRS, CPAPSHREYAS B PATELStart: 58-88-8189MYSEWFNDLA WITH RESPIRATORY VENTILATION, <24 HRS, CPAPSHREYAS B VOSS Start: 81-68-8731UAEAWQLLYB WITH RESPIRATORY VENTILATION, <24 HRS, CPAPANAS RENNOStart: 71-58-1437YFJZGLLHNK OF ARTERIAL SATURATION, PERIPHERAL, PERC APPROACHANAS RENNO Plan of Treatment DateCare ActivityDetailAuthorStart: 91-57-5224JEdP/Tdap/Td vaccine (2 - Tdap) DTaP/Tdap/Td vaccine (2 - Tdap)[facility]: [facility]28[facility] End: 10-51-7508Jszcfzk encounter kizmjujcp34/23/2025 10:20 AM EDT Office Visit [facility] [address] [facility] [address] [place] [phone] Jeffry Garces, DPPaula [address] [facility] [address] [place] [address] Diabetes mellitus due to underlying condition with diabetic polyneuropathy, with long-term current use of insulin (HCC) (Primary Dx); Pain due to onychomycosis of toenails of both feetNOMS CI PODIATRYComment on above:Diabetes mellitus due to underlying condition with diabetic polyneuropathy, with long-term current use of insulin (HCC) (Primary Dx); Pain due to onychomycosis of toenails of both feetStart: 01-27-2025 End: 80-78-4363Moocqqt encounter procedureNOMS CI PODIATRYComment on above: Diabetes mellitus due to underlying condition with diabetic polyneuropathy, with long-term current use of insulin (HCC) (Primary Dx); Pain due to onychomycosis of toenails of both feetStart: 11-18-2024 End: 87-00-6152Tcpyyzy encounter procedureNOMS CI PODIATRYComment on above: Diabetes mellitus due to underlying condition with diabetic polyneuropathy, with long-term current use of insulin (CMS/HCC) (Primary Dx); Pain due to onychomycosis of toenails of both feetStart: 09-02-2024 End: 13-63-6878Owviilc encounter inqctlhui13/27/2025 10:40 AM EST Office Visit [facility] [address] [place] [address] Jeffry Garces DPM [address] [address] Diabetes mellitus due to underlying condition with diabetic polyneuropathy, with long-term current use of insulin (CMS/HCC) (Primary Dx); Pain due to onychomycosis of toenails ofboth feetN[facility]S [facility] Comment on above:Diabetes mellitus due to underlying condition with diabetic polyneuropathy, with long-term current use of insulin (CMS/HCC) (Primary Dx); Pain due to onychomycosis of toenails of both feetStart: 07-15-2024 End: 26-09-7870Riejtil encounter mgyoegldw45/09/2025 11:50 AM EST Office Visit [facility] [address] [address] [place] [address] Jeffry Garces DPM [address] [address] [facility]ODIATRYStart: 05-06-2024 End: 99-72-4854Pihxjjr encounter procedureNOMS CI PODIATRYComment on above: Diabetes mellitus due to underlying condition with diabetic polyneuropathy, with long-term current use of insulin (CMS/HCC) (Primary Dx); Pain due to onychomycosis of toenails of both feetStart: 02-26-2024 End: 80-37-8681Udcttfm encounter avcdgjbsg74/22/2024 11:40 AM EDT Office Visit [facility] [address] [place] [phone] Jeffry Garces, DPM [address] [address] Diabetes mellitus due to underlying condition with diabetic polyneuropathy, with long-term current use of insulin (CMS/HCC) (Primary Dx); Onychomycosis; Toe pain, bilateralNOMS CI PODIATRYComment on above:Diabetes mellitus due to underlying condition with diabetic polyneuropathy, with long-term current use of insulin (CMS/HCC) (Primary Dx); Onychomycosis; Toe pain, bilateralStart: 04-69-1457Qtjtysedqk measurementCreatinine monitoring [facility] inkStart: 84-47-2553Sicqsaaxx monitoringPotassium monitoringHolzer Health System J.G. inkStart: 44-03-1832Nnmsntdzz vaccinationFlu vaccine (#1)[facility] inkStart: 90-09-8955Methrsej Vaccine (1 of 2)Shingles Vaccine (1 of 2)[facility] inkart: 55-20-9636Gwvambfcm for malignant neoplasm of colonColon cancer screen colonoscopyHolzer Health System J.G. inkStart: 86-43-8272YHVTA-19 Vaccine (1)COVID-19 Vaccine (1) [facility] inkStart: 50-49-9190Oddrw panelLipid screenCleveland ClinicMpaxart: 34-94-0877Hjanfpjsr C screeningHepatitis C screenCleveland ClinicSpinPunch [facility] HospitalEKG 12 LeadEKG 12 Lead ECG STAT 06/04/2021 7:12 PM ESTCleveland ClinicAeroDron Phone: End: 82-26-5763Niynvkr [Mass/volume] in Serum or PlasmaCleveland ClinicAeroDron Phone: comment on above:One Time for 1 Occurrences starting 06/04/2021 until 06/04/2021 Payers DatePayer CategoryPayerPolicy [id number] 2023Medicare AARP MEDICARE COMPLETE AARP MEDICARE COMPLETE (SECURE HORIZONS) [id number] 2022-Present [address] [address] [place] [address] [id number] 2023Medicare (Managed Care) [id number] [id number] 2.16.840.1.419109.3.57[id number] 2.16.840.1.163397.3.57[id number] 2.16.840.1.529719.3.57[id number] 2.16.840.1.319930.3.57[id number] 2.16.840.1.067927.3.57[id number] 2.16.840.1.866154.3.57[id number] 2.16.840.1.254288.3.57[id number] 2.16.840.1.825500.3.57[id number] 2.16.840.1.560132.3.57[id number] 2.16840.1.75801[id number] Social History DateTypeDetailFacilityStart: 06-04-2021 End: 93-74-0126Yqqqgtu smoking status NHISNever smoked tobaccoCleveland ClinicMpax Work Phone: start: 06-04-2021 End: 82-44-3389Yeksume use and exposureSmokeless tobacco non-userMercy Health Work Phone: start: 06-04-2021 End: 28-52-3946Sxyivao intakeLifetime non-drinker (finding)[facility] Work Phone: start: 70-21-6358[place]on SDOH Alcohol Nekbodagl3Wyhyq Health Work Phone: start: 92-06-1416Egs Assigned At BirthNot on fileHolzer Health System Health Work Phone: start: 02-26-2024 End: 39-07-8496Qwwfcmf of Social functionNODE HealthcareStart: 02-26-2024 End: 24-81-8034Btgdhsi use panelINTERMOUNTAIN HEALTHCARE HealthcareStart: 17-66-8714Iaq assigned at [facility] HealthcareStart: 99-00-3608Yhkpjm identityIdentifies as male gender (finding)[facility] HealthcareStart: 64-36-0680FjaQuppOZFO HealthcareNEGATED: Highlighted rowStart: NINFHistory of tobacco usePassive smokerAudrain Medical Center Clinical Notes 06-04-2021 to 09-20-2024 Note Date & LyxlNuzjPunkfxry51-08-4213 Telephone encounter Note* Telephone Encounter - Geronimo Posey NP - 09/20/2024 12:08 PM EDT Allergies reveiwed. Rx [facility] to pharmacy [facility] CenterHkfeuhpbye23-81-0575 Miscellaneous Notes* Telephone Encounter - Geronimo Posey NP - 09/20/2024 12:08 PM EDT Allergies reveiwed. Rx sent to pharmacy * Telephone Encounter - Kecia Mcgregor - 09/20/2024 11:44 AM EDT Patient called in stating he needs an antibiotic sent to his pharmacy. documented in this encounterAudrain Medical CenterHslmkagwwo03-47-0465 Telephone encounter Note* Telephone Encounter - Kecia Mcgregor - 09/20/2024 11:44 AM EDT Patient called in stating he needs an antibiotic sent to his pharmacy. [facility] CenterElsygkzxrr59-18-0068 NoteCardiovascular Medicine [facility] SUBJECTIVE Chief Complaint Patient presents with Coronary [...] kidney disease) COPD (chronic obstructive pulmonary disease) (CMS/HCC) Diastolic heart failure (CMS/HCC) DM (diabetes mellitus) ([facility]/HCC) GERD (gastroesophageal reflux disease) Hyperlipidemia Hypertension IMAN [...] General: Normal range of (more content not included)...[facility]12-11-2024 NotePatient here for 1 year follow up chronic diastolic heart failure, CAD, ascending aortic dilatation, and hypertension. Had routine labs w/ lipid panel in November 2023. Doing well from cardiac standpoint. Denies chest pain, SOB, palpitations, and lightheadedness/syncope. Review of Systems Cardiovascular: Positive for leg swelling (intermittent, resolves by morning). Musculoskeletal: Positive for arthritis, back pain and joint pain. All other systems reviewed and are negative.[facility] 05-06-2024 History of Present illness Narrative* Jeffry Garces DPM - 05/06/2024 11:50 AM EDT Patient: Mackenzie Dumont : 1955 PCP: No [...] History: Past Medical History: Diagnosis Date Diabetes ([facility]) Gout Neuropathy in diabetes ([facility]) Onychomycosis Tinea pedis Medications: Current Outpatient [...] Unknown (08/28/2023) [facility] [place] [employer] Fear of Current [...] and negative PT pedal pulses NEURO: 5.07 [place] monofilament test diminished to digits and forefoot bilaterally 125Hz tuning fork diminished to 1st MPJ bilaterally ORTHO: Positive pain on palpation to nails 1 through 10 ASSESSMENT 1. Diabetes mellitus due to underlying condition with diabetic polyneuropathy, with long-term current use of insulin ([facility]) 2. Pain due to onychomycosis of toenails of both feet PLAN Discussed proper foot care with patient today. [place] nails in length and thickness digits 1 through 10 Jeffry Garces DPM documented in this encounterAudrain Medical CenterDokhgxtimt67-96-9066 History of Present illness Narrative* Jeffry Osorio Dez, DPM - 02/26/2024 11:40 AM EDT Patient: Mackenzie Dumont : 1955 PCP: No [...] History: Past Medical History: Diagnosis Date Diabetes ([facility]) Gout Neuropathy in diabetes ([facility]) Onychomycosis Tinea pedis Medications: Current Outpatient [...] Unknown (08/28/2023) [facility] [place] [employer] Fear of Current [...] and negative PT pedal pulses NEURO: 5.07 [place] monofilament test diminished to digits and forefoot bilaterally 125Hz tuning fork diminished to 1st MPJ bilaterally ORTHO: Positive pain on palpation to nails 1 through 10 ASSESSMENT 1. Diabetes mellitus due to underlying condition with diabetic polyneuropathy, with long-term current use of insulin ([facility]) 2. Onychomycosis 3. Toe pain, bilateral PLAN Discussed proper foot care with patient today. [place] nails in length and thickness digits 1 through 10 Jeffry Garces DPM documented in this encounterAudrain Medical CenterDylhfqwdrw54-90-7894 Hospital Discharge instructions* Instructions* Latoya Moyer, - 06/04/2021 Please call your primary care doctor tomorrow regarding additional management of your diabetes and med adjustments. Return to ER if you start to feel ill, monitor your glucose at home with frequent checks. documented in this encounterApellis Pharmaceuticals Phone: evaluation note* Diagnosis Hypoglycemia- Primary Hypoglycemia, unspecified documented in this encounter [employer] Phone: evaluation note* Diagnosis Diabetes mellitus due to underlying condition with diabetic polyneuropathy, with long-term current use of insulin ([facility])- Primary Pain due to onychomycosis of toenails of both feet documented in this encounter [facility] HealthcareEvaluation note* Diagnosis Diabetes mellitus due to underlying condition with diabetic polyneuropathy, with long-term current use of insulin ([facility])- Primary Onychomycosis Dermatophytosis of nail Toe pain, bilateral documented in this encounter [facility] HealthcareEvaluation note* Diagnosis Diabetes mellitus due to underlying condition with diabetic polyneuropathy, with long-term current use of insulin ([facility])- Primary Pain due to onychomycosis of toenails of both feet documented in this encounter [facility] HealthcareEvaluation note* Diagnosis History of total knee replacement, unspecified laterality- Primary documented in this encounter [facility] HealthcareEvaluation note* Diagnosis Diabetes mellitus due to underlying condition with diabetic polyneuropathy, with long-term current use of insulin ([facility]/HCC)- Primary Pain due to onychomycosis of toenails of both feet documented in this encounter [facility] HealthcareEvaluation note* Diagnosis Diabetes mellitus due to underlying condition with diabetic polyneuropathy, with long-term current use of insulin ([facility])- Primary Pain due to onychomycosis of toenails of both feet documented in this encounter [facility] HealthcareHistory of Present illness Narrative* Jeffry Garces, DPM - 09/02/2024 10:40 AM EST Patient: [...] History: Past Medical History: Diagnosis Date Diabetes ([facility]) Gout Neuropathy in diabetes ([facility]) Onychomycosis Tinea pedis Medications: Current Outpatient [...] Unknown (08/28/2023) [facility] [place] [employer] Fear of Current [...] and negative PT pedal pulses NEURO: 5.07 [place] monofilament test diminished to digits and forefoot bilaterally 125Hz tuning fork diminished to 1st MPJ bilaterally ORTHO: Positive pain on palpation to toenails of the left 1,2,3,4,5 toes and right 1,2,3,4,5 toes ASSESSMENT 1. Diabetes mellitus due to underlying condition with diabetic polyneuropathy, with long-term current use of insulin ([facility]) 2. Pain due to onychomycosis of [...] History: Past Medical History: Diagnosis Date Diabetes ([facility]) Gout Neuropathy in diabetes ([facility]) Onychomycosis Tinea pedis Medications: Current Outpatient [...] Partner Violence: Unknown (08/28/2023) [facility] Environment Fear of Current or [...] and negative PT pedal pulses NEURO: 5.07 [place] monofilament test diminished to digits and forefoot bilaterally 125Hz tuning fork diminished to 1st MPJ bilaterally ORTHO: Positive pain on palpation to toenails of the left 1,2,3,4,5 toes and right 1,2,3,4,5 toes ASSESSMENT 1. Diabetes mellitus due to underlying condition with diabetic polyneuropathy, with long-term current use of insulin ([facility]) 2. Pain due to onychomycosis of [...] History: Past Medical History: Diagnosis Date Diabetes (HCC) Gout Neuropathy in diabetes (HCC) Onychomycosis Tinea pedis Medications: Current Outpatient Medications: [...] Unknown (08/28/2023) Received from [facility] [place] [employer] Fear of Current [...] and negative PT pedal pulses NEURO: 5.07 [place] monofilament test diminished to digits and [...] illness Narrative * Jeffry Garces DPM - 04/28/2025 10:20 AM EDT Patient: Mackenzie Dumont : 1955 [...] History: Past Medical History: Diagnosis Date Diabetes (HCC) Gout Neuropathy in diabetes (HCC) Onychomycosis Tinea pedis Medications: Current Outpatient Medications: [...] Partner Violence: Unknown (08/28/2023) [facility] from [facility] [employer] Environment Fear of Current or [...] and negative PT pedal pulses NEURO: 5.07 [place] monofilament test diminished to digits and [...] 10 Jeffry Garces DPM documented in this encounterNODE Healthcare Summary Purpose Family History No Family History Records FoundNo Family History Records FoundNo Family History Records FoundNo Family History Records FoundNo Family History Records FoundNo Family History Records Found Advance Directives No Advanced Directives Records FoundNo Advanced Directives Records FoundNo Advanced Directives Records FoundNo Advanced Directives Records FoundNo Advanced Directives Records FoundNo Advanced Directives Records Found Hospital Course Note MR#: [id number] [facility] Pt. Name: Mackenzie Dumont Admitted: 06/11/2019 Discharged: 06/15/2019 Date of : 1955 Physician: Eufemia Voss MD DISCHARGE SUMMARY DISCHARGING PHYSICIAN: Eufemia Voss MD. CONSULTANTS: 1. Cardiology. 2. Pulmonary. [...] and content) DATE CREATED AUTHOR 07/07/2019 [facility] DATE CREATED AUTHOR AUTHOR'S ORGANIZ ATION 06/08/2021 [facility] DATE CREATED AUTHOR AUTHOR'S ORGANIZ ATION 04/12/2022 [facility] DATE CREATED AUTHOR AUTHOR'S ORGANIZ ATION 09/06/2023 [facility] EPIC DATE CREATED AUTHOR AUTHOR'S ORGANIZ ATION 12/23/2024 [facility] DATE CREATED AUTHOR AUTHOR'S ORGANIZ ATION 04/29/2025 [facility] EPIC Reason for Visit (unrecogniz ed section and content) ReasonCommentsHypoglycemiaReasonCommentsDM Foot CareDm NailsReasonCommentsDM Foot CareDm nail careReasonOnset YlxcLcbrkwxaLnlkqgnqkz24/17/2025ReasonComments DM Foot Care Scheduled Active and Recently Administ ered Medications (unrecognized section and content) Medication Order// 0.9 % sodium chloride bolus (COMPLETED) 1,000 mL, IntraVENous, at 1,000 mL/hr, Administer over 1 Hours, ONCE, On 06/04/21 at 1915, For 1 dose * 1934 (New Bag - Provider: Cindy Quick RN) * 8221 (Stopped - Provider: Cindy Quick RN) Medication Order// dextrose 50 % solution Starting on Fri06/04/21 at 1905, For 1 dose, Hensley, Amber: cabinet override * 191 (Due) dextrose 50 % solution Starting on Fri06/04/21 at 1908, For 1 dose, Jocelyne, Amber: cabinet override * 1915 (Due) Care Teams (unrecognized sec tion and content) Team MemberRelationshipSpecialtyStart DateEnd Date Josh Pro MD [address] [place] [address] PCP - GeneralFamily Uutfpawm84/29/21Team MemberRelationshipSpecialtyStart Date End Josh Pro MD [address] [place] [address] PCP - GeneralFamily Medicine09/02/24Team MemberRelationshipSpecialtyStart DateEnd Date Josh Pro MD [address] [place] [address] PCP - GeneralFamily Medicine09/02/24Team MemberRelationshipSpecialtyStart DateEnd Date Josh Pro MD [address] [place] [address] PCP - GeneralFamily Medicine09/02/24Team MemberRelationshipSpecialtyStart DateEnd Date Josh Pro MD [address] [place] [address] PCP - GeneralFamily Medicine09/02/24Team MemberRelationshipSpecialtyStart DateEnd Date Josh Pro MD [address] [place] [address] PCP - [facility]09/02/24Team MemberRelationshipSpecialtyStart DateEnd Date Josh Pro MD [address] [place] [address] PCP - [facility]09/02/24 FOR RECORDS PERTAINING TO PATIENTS WHO ARE [...] BE BASED ON THE PRIMARY CLINICAL RECORDS. [facility] [employer] [facility]. provides no warranty or guarantee of the accuracy or completeness of information in this document.
== END 2025-07-05 13:49 | disposition home or self-care (01) ==
LOC: LAB 13:50
PROVIDERS: PCP Family Medicine; Visit Provider Nurse Practitioner Family
DX: E87.6 Hypokalemia (principal)
CPT/HCPCS: 36415; 80048